=== PATIENT | female | born 1950 | race African-American/Black ===

== ENCOUNTER 2018-09-09 17:05 | Inpatient (IN) | payer OTHER ==
[2018-09-09 17:13] VITALS: BMI 39.1
[2018-09-09 17:47] LABS: BASO % 0.7 % (0-2.0); EOS % 3.1 % (0-4.5); HEMATOCRIT 32.6 % (32.4-45.2); HEMOGLOBIN 11.3 GM/dL (10.7-15.3); LYMPH % 40.3 % (8-40); MCH 32.2 pg (25.7-33.7); MCHC 34.7 g/dl (32.0-36.0); MEAN CELL VOLUME 92.8 fl (80-96); MEAN PLT VOLUME 10.2 fl (7.5-11.1); MONO % 8.4 % (3.8-10.2); NEUT % 47.5 % (42.8-82.8); PLATELET COUNT 224 K/MM3 (134-434); RBC 3.51 M/mm3 (3.60-5.2); RDW 14.4 % (11.6-15.6); WHITE BLOOD COUNT 6.8 K/mm3 (4.0-10.0)
[2018-09-09 18:01] LABS: INR 1.05 (0.83-1.09); PROTHROMBIN TIME (PATIENT) 12.4 SEC (9.7-13.0)
--- NOTE | 2018-09-09 18:08 | PDOC ---
Attending Attestation - Resident Resident Name: Yodit Gonsalez - ED Attending Attestation I have performed the following: I have examined & evaluated the patient, The case was reviewed & discussed with the resident, I agree w/resident's findings & plan, Exceptions are as noted - HPI HPI: 09/09/18 18:12 The patient is a 67 year old female, with a significant PMH of dementia, HTN, HLD, and gout who presents to the emergency department after an episode of slurred speech approximately 60 minutes ago. Daughter is at bedside and providing the history. Patient was sitting down when she suddenly fell backwards slowly on the couch and appeared dazed. Daughter also noticed the left arm stiffening, speech slurring, and b/l face drooping that resolved on its own after 3-5 minutes. Daughter describes slurred speech as the pt speaking in fluent words but like she is "drunk." Denies color change. Denies CP. Pt was in her USOH just prior to episode. No similar episodes in the past. Patients daughter reports she may have had a stroke, unknown how long ago, which was found in a CT scan. Pt noted to have LUE hand tremor at rest that daughter states has been present for months. No hx parkinsons. Patient is asymptomatic in the ER now, denies any symptoms. Daughter states she appears at baseline. The patient denies chest pain, shortness of breath, headache and dizziness. Denies fever, chills, nausea, vomit, diarrhea and constipation. Denies dysuria, frequency, urgency and hematuria. Allergies: NKA Past surgical history: None reported. Social history: No reported alcohol, drug or cigarette use. - Physicial Exam PE: 09/09/18 18:16 agree with residents exam - Medical Decision Making 09/09/18 18:20 67yo F hx CVA, HTN, HL, dementia presents to the ED with transient episode of staring off, slurred speech and b/l facial droop. Pt hypertensive on arrival to 190s systolic. Exam here wnl, NIHSS is 0 at this time. Concern for TIA vs syncope vs seizure. No pain at any point to suggest aortic dissection. Code collier activated for TIA. Plan for CT, labs, UA, CXR, neuro c/s. Anticipate admission.
--- NOTE | 2018-09-09 18:11 | PDOC ---
History of Present Illness - General Chief Complaint: CVA/TIA Stated Complaint: DIZZINESS, SLURRED SPEECH Time Seen by Provider: 09/09/18 17:19 History Source: Patient, Family (daughter) Exam Limitations: No Limitations - History of Present Illness Initial Comments: 09/09/18 18:06 Pt is a 67yo F with PMH of CVA 4 years ago, Dementia, HTN, HLD, Gout presenting to ED with daughter for possible stroke. Per daughter, 30 minutes prior to ED arrival pt was in bed when she became unresponsive, had a blank stare and started to lean backward. Daughter noticed L arm weakness, bilateral facial droop. Pt was like this for about 3-5 minutes. When she became responsive, she was slurring her speech. Per daughter, pt is not having any symptoms. Pt states that she does not remember this episode. Right now she is denying headache, changes in vision, changes in hearing, neck pain, back pain, chest pain, SOB, palpitations, abdominal pain, numbness/tingling, n/v/d, blood in stool, fevers, chills, head injury. Daughter has noticed urinary frequency. Daughter said pt was at [facility] and was told that her mother has "something in the heart valves." Daughter is not sure how long she has been out of ASA. PMD: [place] PMH: see hpi PSH: none Meds: amlodipine, allopurinol, simvastatin, donepazil, see med rec Social: denies Allergies: nkda 09/09/18 18:11 Past History - Past Medical History Allergies/Adverse Reactions: Allergies Allergy/AdvReac Type Severity Reaction Status Date / Time No Known Drug Allergies Allergy Verified 09/09/18 17:08 Shellfish Allergy Uncoded 09/09/18 17:08 Home Medications: Ambulatory Orders Aspirin 81 mg PO DAILY 02/21/13 Atorvastatin Ca [Lipitor (*)] 10 mg PO DAILY 02/21/13 Folic Acid - 1 mg PO DAILY 02/21/13 Multivits-Min/FA/Lycopene/Lut [Centrum Silver Tablet] 1 each PO DAILY 02/21/13 Thiamine HCl [Vitamin B-1] 50 mg PO DAILY 02/21/13 CVA: Yes COPD: No HTN: Yes Seizures: Yes (EPILEPTIC SEIZURES - RECENT 2012; not on meds) - Immunization History Immunization Up to Date: Yes - Suicide/Smoking/Psychosocial Hx Smoking Status: No Smoking History: Current every day smoker Have you smoked in the past 12 months: Yes Number of Cigarettes Smoked Daily: 10 Information on smoking cessation initiated: No 'Breaking Loose' booklet given: 07/03/12 Hx Alcohol Use: No Drug/Substance Use Hx: No Substance Use Type: Alcohol Hx Substance Use Treatment: No Review of Systems - Review of Systems Constitutional: No: Chills, Fever, Weakness HEENTM: No: Eye Pain, Recent change in vision, Double Vision, Hearing Loss Respiratory: No: Cough, Shortness of Breath Cardiac (ROS): No: Chest Pain, Lightheadedness, Palpitations, Syncope ABD/GI: No: Constipated, Diarrhea, Nausea, Rectal Bleeding, Vomiting, Tarry Stools : Yes: Frequency. No: Burning, Dysuria Musculoskeletal: No: Back Pain, Joint Pain, Muscle Weakness, Neck Pain Integumentary: No: Symptoms Reported Neurological: Yes: See HPI. No: Headache, Numbness, Tingling, Tremors, Weakness *Physical Exam - Vital Signs Last Vital Signs Temp Pulse Resp BP Pulse Ox 98.3 F 75 18 198/79 H 96 09/09/18 17:09 09/09/18 17:09 09/09/18 17:09 09/09/18 17:09 09/09/18 17:09 - Physical Exam General Appearance: Yes: Nourished, Appropriately Dressed. No: Apparent Distress HEENT: positive: EOMI, FLOR, Normal ENT Inspection Neck: positive: Trachea midline, Supple. negative: Carotid bruit, Lymphadenopathy (R), Lymphadenopathy (L) Respiratory/Chest: positive: Lungs Clear, Normal Breath Sounds. negative: Crackles, Rales, Rhonchi, Stridor, Wheezing Cardiovascular: positive: Regular Rhythm, Regular Rate, S1, S2, Systolic Murmur. negative: Edema, JVD Vascular Pulses: Carotid (R): 2+, Carotid (L): 2+, Dorsalis-Pedis (R): 2+, Doralis-Pedis (L): 2+ Gastrointestinal/Abdominal: positive: Normal Bowel Sounds, Soft. negative: Distended, Guarding, Rebound, Tenderness, Hernia Musculoskeletal: negative: CVA Tenderness, Vertebral Tenderness Extremity: positive: Normal Capillary Refill, Pelvis Stable. negative: Pedal Edema, Swelling, Calf Tenderness Integumentary: positive: Normal Color, Dry, Warm. negative: Rash, Swelling Neurologic: positive: sheet rock sander II-XII NML intact, Fully Oriented, Alert, Normal Mood/ Affect, Normal Response, Motor Strength 5/5, Responsive, Other (resting tremor in R index finger). negative: Facial Droop, Numbness, Sensory Deficit, Confused , Disoriented Deep Tendon Reflexes: Ankle (L): 2+, Ankle (R): 2+, Knee (L): 2+, Knee (R): 2+, Bicep (L): 2+, Bicep (R): 2+, Tricep (L): 2+, Tricep (R): 2+ NIH Stroke Scale - Initial Evaluation Level of consciousness: Alert Ask patient the month and their age: Answers both correctly Ask patient to open & close eyes; make fist and let go: Obeys both correctly Best gaze (horizontal eye movement): Normal Visual field testing: No visual field loss Facial paresis (Show teeth/raise eyebrows/close eyes tight): Normal symmetrical movement Motor Function: Left Arm: Normal Motor Function: Right Arm: Normal (extends arm 90 (or 45) degrees for 10 seconds without drift Motor Function: Left Leg: Normal (extends leg 30 degrees for 5 seconds without drift) Motor Function: Right Leg: Normal (extends leg 30 degrees for 5 seconds without drift) Limb Ataxia: No ataxia Sensory(Use pinprick test arms,legs,trunk,face/side to side): Normal Best language (Describe picture, name items, read sentences): No Aphasia Dysarthria (read several words): Normal articulation Extinction and Inattention: No abnormality - Total Score NIH Stroke Scale Score: 0 Moderate Sedation - Procedure Monitoring Vital Signs: Procedure Monitoring Vital Signs Temperature 98.3 F 09/09/18 17:09 Pulse Rate 75 09/09/18 17:09 Respiratory Rate 18 09/09/18 17:09 Blood Pressure 198/79 H 09/09/18 17:09 O2 Sat by Pulse Oximetry (%) 96 09/09/18 17:09 Critical Care Time/MDM Note - Medical Decision Making Note: 09/09/18 18:12 Pt is a 67yo F with PMH of CVA 4 years ago, HTN, HLD, Gout presenting to ED with daughter for possible stroke. Per daughter, 30 minutes prior to ED arrival pt was in bed when she became unresponsive, had a blank stare and started to lean backward. Daughter noticed L arm weakness, bilateral facial droop. Pt was like this for about 3-5 minutes. When she became responsive, she was slurring her speech. Per daughter, pt is not having any symptoms. Pt states that she does not remember this episode. Right now she is denying headache, changes in vision, changes in hearing, neck pain, back pain, chest pain, SOB, palpitations , abdominal pain, numbness/tingling, n/v/d, blood in stool, fevers, chills, head injury. Daughter has noticed urinary frequency. Daughter said pt was at [facility] and was told that her mother has "something in the heart valves." Daughter is not sure how long she has been out of ASA. Vitals: Selected Entries 09/09/18 17:09 Temperature 98.3 F Pulse Rate 75 Respiratory 18 Rate Blood Pressure 198/79 H O2 Sat by Pulse 96 Oximetry (%) PE: no neurological deficits. Pt is alert and oriented. She has history of dementia and per daughter does not normally know what day/month it is or what her address is. DDx: CVA/TIA v. syncope v. seizure v. AMS from other source. -CVA workup ordered by Dr. Wilson. I accompanied nurse to CT with patient. Pending results. Initial BP elevated. I repeated BP in room, 178/80s. HR wnl and saturating well on RA. 09/09/18 18:52 CT head negative for acute bleed. Calcifications. Trop 0.06 otherwise wnl. CXR pending, UA pending. Consulted dr. Green, suggested high dose statin and ASA. Will admit to TELE. *DC/Admit/Observation/Transfer Diagnosis at time of Disposition: TIA (transient ischemic attack) - Discharge Dispostion Decision to Admit order: Yes - Referrals Referrals: Manju Dickson MD [Primary Care Provider] - - Patient Instructions - Post Discharge Activity
[2018-09-09 18:18] LABS: ALBUMIN 3.2 g/dl (3.4-5.0); ALK PHOS 86 U/L (45-117); ANION GAP 9 MMOL/L (8-16); BILIRUBIN,TOTAL 0.3 mg/dL (0.2-1); BLOOD UREA NITROGEN 21 mg/dL (7-18); CHLORIDE 112 mmol/L (98-107); CO2 23 mmol/L (21-32); CREATININE 1.2 mg/dL (0.55-1.3); GLUCOSE,RANDOM 91 mg/dL (74-106); POTASSIUM 4.2 mmol/L (3.5-5.1); SGOT/AST 11 U/L (15-37); SGPT/ALT 13 U/L (13-61); SODIUM 145 mmol/L (136-145); TOT PROT 7.6 g/dl (6.4-8.2)
[2018-09-09] MEDS ORDERED: ASPIRIN 325 MG TABLET PO ONE (18:49)
[2018-09-09] MEDS ORDERED: ATORVASTATIN CA 80 MG TABLET (FP) PO ONE (18:51)
--- NOTE | 2018-09-09 19:30 | PN ---
Teaching Attending Note Name of Resident: Richard Patrick ATTENDING PHYSICIAN STATEMENT I saw and evaluated the patient. I reviewed the resident's note and discussed the case with the resident. I agree with the resident's findings and plan as documented. SUBJECTIVE: Patient is a 67 year old woman with a PMH of dementia, HTN, HLD, Tobacco use and gout who presents to the ER after an episode of slurred speech approximately 60 minutes ago. Daughter is at bedside and providing the history. Patient was sitting down when she suddenly fell backwards slowly on the couch and appeared dazed. Daughter also noticed the left arm stiffening, speech slurring, and bilateral face drooping that resolved on its own after 3-5 minutes. Daughter describes slurred speech as the patient speaking in fluent words but like she is "drunk." Denies color change. No similar episodes in the past. Patients daughter reports she may have had a stroke, unknown how long ago , which was found in a CT scan. Patient noted to have LUE hand tremor at rest that daughter states has been present for months. No history of Parkinsons. Patient is asymptomatic in the ER now, denies any symptoms. NIHSS in the Er was 0. Daughter states she appears at baseline. The patient denies chest pain, shortness of breath, headache and dizziness. OBJECTIVE: Alert Vital Signs Period Temp Pulse Resp BP Sys/Christensen Pulse Ox Last 24 Hr 98.3 F 75 18 198/79 96 HEENT: No Jaundice, eye redness or discharge, PERRLA, EOMI. Normocephalic, atraumatic. External ears are normal and hearing is grossly intact. No nasal discharge. Neck: Supple, nontender. No palpable adenopathy or thyromegaly. No JVD Chest: Good effort. Clear to auscultation and percussion. Heart: Regular. No S3, rub or murmur Abdomen: Not distended, soft, nontender and no HSM. No rebound or guarding. Normoactive bowel sounds. Ext: Peripheral pulses intact. No leg edema. Skin: Warm and dry. No petechiae, rash or ecchymosis. Neuro: Alert. Oriented x3. CN 2-12 grossly intact. Sensation grossly intact in all four extremities and DTR are symmetric. Home Medications Medication Instructions Recorded Aspirin 81 mg PO DAILY 02/21/13 Atorvastatin Ca [Lipitor (*)] 10 mg PO DAILY 02/21/13 Folic Acid - 1 mg PO DAILY 02/21/13 Multivits-Min/FA/Lycopene/Lut 1 each PO DAILY 02/21/13 [Centrum Silver Tablet] Thiamine HCl [Vitamin B-1] 50 mg PO DAILY 02/21/13 Abnormal Lab Results 09/09/18 09/09/18 17:09 17:09 RBC 3.51 L Lymphocytes % 40.3 H D Chloride 112 H BUN 21 H AST 11 L Troponin I 0.06 H Albumin 3.2 L ASSESSMENT AND PLAN: 1. TIA - Her head CT scan did not show any acute pathology. Likely had a TIA. Will admit to telemetry, get carotid doppler and ECHO. Patient is symptom free and has no deficits at this time - no indication for MRI. Troponin is slightly elevated and EKG shows T wave inversion in V5-6. Will trend troponin and get repeat EKG to rule out ACS. Optimize statin therapy and get fasting lipids. CXR shows cardiomegaly. Restart home antihypertensive drugs to ultimately attain normotension. Nonpharmacologic measures to control hypertension like weight loss , salt restriction and exercise discussed. 2. Obesity - Will provide patient all the necessary assistance, counseling and positive reinforcement to facilitate weight loss. Consult drafter (cad) electronic. 3. DVT prophylaxis - Lovenox 40 mg SQ q 24 hours. 4. Advance directives - Full code
[2018-09-09] MEDS ORDERED: ASPIRIN 325 MG TABLET ONE (19:34)
[2018-09-09] MEDS ORDERED: ATORVASTATIN CA 80 MG TABLET (FP) ONE (19:36)
--- NOTE | 2018-09-09 20:24 | HP ---
CHIEF COMPLAINT: Per Daughter: AMS, slurred speech, unresponsiveness PCP: Dr Dickson HISTORY OF PRESENT ILLNESS: Pt is a pleasant 67 y/o lady with a significant past medical history of CVA(4 years ago), dementia, epilepsy?, HTN, HLD, Gout, who presented to [facility] due to slurred speech, altered mental status, L arm weakness, and facial droop witnessed by daughter. Per daughter, episode lasted approximately 3-5 minutes and resolved on its own. Per daughter, pt fell backwards slowly on the couch and appeared dazed. Pt does not recall this episode. Daughter endorses that pt has never experienced these symptoms in the past. Daughter states pt has been compliant with blood pressure medication. Pt currently denies chest pain, shortness of breath, confusion, lightheadedness, blurry vision, or headache. NIHSS in the ER was 0. ER course was notable for: (1) CT Head negative (2) BP 198/ 79 (3) EKG in ED--> Sinus rhythm with 1st degree AV block Recent Travel: PAST MEDICAL HISTORY: PAST SURGICAL HISTORY: Hysterectomy Social History: Smoking:Smokes 4-5 Cigarettes per day x 55 years Alcohol: denies Drugs: denies Family History: Allergies No Known Drug Allergies Allergy (Verified 09/09/18 17:08) Shellfish Allergy (Uncoded 09/09/18 17:08) HOME MEDICATIONS: Home Medications Medication Instructions Recorded Aspirin 81 mg PO DAILY 02/21/13 Atorvastatin Ca [Lipitor (*)] 10 mg PO DAILY 02/21/13 Folic Acid - 1 mg PO DAILY 02/21/13 Multivits-Min/FA/Lycopene/Lut 1 each PO DAILY 02/21/13 [Centrum Silver Tablet] Thiamine HCl [Vitamin B-1] 50 mg PO DAILY 02/21/13 REVIEW OF SYSTEMS Symptoms have resolved CONSTITUTIONAL: ABSENT: fever, chills, diaphoresis, generalized weakness, malaise, loss of appetite, weight change HEENT: Absent: rhinorrhea, nasal congestion, throat pain, throat swelling, difficulty swallowing, mouth swelling, ear pain, eye pain, visual changes CARDIOVASCULAR: Absent: chest pain, syncope, palpitations, irregular heart rate, lightheadedness , peripheral edema RESPIRATORY: Absent: cough, shortness of breath, dyspnea with exertion, orthopnea, wheezing, stridor, hemoptysis GASTROINTESTINAL: Absent: abdominal pain, abdominal distension, nausea, vomiting, diarrhea, constipation, melena, hematochezia GENITOURINARY: Absent: dysuria, frequency, urgency, hesitancy, hematuria, flank pain, genital pain MUSCULOSKELETAL: Absent: myalgia, arthralgia, joint swelling, back pain, neck pain SKIN: Absent: rash, itching, pallor HEMATOLOGIC/IMMUNOLOGIC: Absent: easy bleeding, easy bruising, lymphadenopathy, frequent infections ENDOCRINE: Absent: unexplained weight gain, unexplained weight loss, heat intolerance, cold intolerance NEUROLOGIC: Absent: headache, focal weakness or paresthesias, dizziness, unsteady gait, seizure, mental status changes, bladder or bowel incontinence PSYCHIATRIC: Absent: anxiety, depression, suicidal or homicidal ideation, hallucinations. PHYSICAL EXAMINATION Vital Signs - 24 hr 09/09/18 09/09/18 17:09 17:34 Temperature 98.3 F Pulse Rate 75 62 Respiratory 18 Rate Blood Pressure 198/79 H O2 Sat by Pulse 96 98 Oximetry (%) GENERAL: AAOx2. Cannot recall date HEAD: NC/AT EYES: EOMI Conjunctiva clear EARS, NOSE, THROAT: Poor dentition, MMM NECK: Supple, No JVD, Neck Supple LUNGS: Crackles R base HEART: RRR No MRG appreciated ABDOMEN: Obese, NDNT MUSCULOSKELETAL: FROM throughout UPPER EXTREMITIES: No CCE LOWER EXTREMITIES:No pedel edema appreciated NEUROLOGICAL: No neuro def appreciated SKIN: No rashes or lesions appreciated Laboratory Results - last 24 hr 09/09/1818 18 17:09 17:09 17:09 WBC 6.8 RBC 3.51 L Hgb 11.3 Hct 32.6 MCV 92.8 MCH 32.2 MCHC 34.7 RDW 14.4 Plt Count 224 MPV 10.2 Absolute Neuts (auto) 3.2 Neutrophils % 47.5 D Lymphocytes % 40.3 H D Monocytes % 8.4 D Eosinophils % 3.1 Basophils % 0.7 Nucleated RBC % 0 PT with INR 12.40 INR 1.05 PTT (Actin FS) Sodium 145 Potassium 4.2 Chloride 112 H Carbon Dioxide 23 Anion Gap 9 BUN 21 H Creatinine 1.2 Creat Clearance w eGFR 44.54 Random Glucose 91 Calcium 9.0 Total Bilirubin 0.3 AST 11 L ALT 13 Alkaline Phosphatase 86 Creatine Kinase 96 Troponin I 0.06 H Total Protein 7.6 Albumin 3.2 L Blood Type Antibody Screen 09/09/18 09/09/18 17:09 17:35 WBC RBC Hgb Hct MCV MCH MCHC RDW Plt Count MPV Absolute Neuts (auto) Neutrophils % Lymphocytes % Monocytes % Eosinophils % Basophils % Nucleated RBC % PT with INR INR PTT (Actin FS) 26.9 Sodium Potassium Chloride Carbon Dioxide Anion Gap BUN Creatinine Creat Clearance w eGFR Random Glucose Calcium Total Bilirubin AST ALT Alkaline Phosphatase Creatine Kinase Troponin I Total Protein Albumin Blood Type A POSITIVE Antibody Screen Negative ASSESSMENT/PLAN: Pt is a pleasant 67 y/o lady with a significant past medical history of CVA(4 years ago), dementia, epilepsy?, HTN, HLD, Gout, who presented to [facility] due to slurred speech, altered mental status, L arm weakness, and facial droop witnessed by daughter. #Transient Ischemic Attack -Clinical history with resolving symptoms - BP 198/ 79 in ED - H/O HTN - Lisinopril 10 MG PO BID Amlodipine 5 MG PO Dailky -HCTZ 12.5 Daily -Echocardiogram -Lipid Panel -Carotid Doppler -Received High dose statin in ED Atorvastin 80 MG, Aspirin 325 mg -Resume home Atorvastatin 40 mg - Aspirin 81 Mg daily -Neurology on board # HLD Resume home Atorvastatin Cousel on weight loss and lifestyle modifications # Gout -Allopurinol # Dementia Donepezil #FEN No Fluids Monitor electrolytes Sodium Controlled Diet DVT ppx: Lovenox 40 SQ Daily Dispo: Tele Visit type - Emergency Visit Emergency Visit: Yes Care time: The patient presented to the Emergency Department on the above date and was hospitalized for further evaluation of their emergent condition. - New Patient This patient is new to me today: Yes Date on this admission: 09/09/18 - Critical Care Critical Care patient: No
[2018-09-09] MEDS ORDERED: LISINOPRIL 5 MG TABLET (FP) ONE (22:36)
[2018-09-09] MEDS: LISINOPRIL 10 MG TABLET (FP) PO SCH ×2 (22:41→22:49)
[2018-09-10 05:54] LABS: BASO % 0.7 % (0-2.0); EOS % 3.3 % (0-4.5); HEMATOCRIT 31.5 % (32.4-45.2); HEMOGLOBIN 10.3 GM/dL (10.7-15.3); LYMPH % 42.5 % (8-40); MCH 30.7 pg (25.7-33.7); MCHC 32.6 g/dl (32.0-36.0); MEAN CELL VOLUME 94.2 fl (80-96); MEAN PLT VOLUME 10.1 fl (7.5-11.1); MONO % 8.2 % (3.8-10.2); NEUT % 45.3 % (42.8-82.8); PLATELET COUNT 216 K/MM3 (134-434); RBC 3.34 M/mm3 (3.60-5.2); RDW 14.6 % (11.6-15.6); WHITE BLOOD COUNT 6.2 K/mm3 (4.0-10.0)
[2018-09-10 06:46] LABS: ANION GAP 8 MMOL/L (8-16); BLOOD UREA NITROGEN 27 mg/dL (7-18); CALCIUM 8.8 mg/dL (8.5-10.1); CHLORIDE 112 mmol/L (98-107); CHOLESTEROL 154 mg/dL (50-200); CO2 25 mmol/L (21-32); CREATININE 1.3 mg/dL (0.55-1.3); GLUCOSE,RANDOM 97 mg/dL (74-106); HDL CHOLESTEROL 40 mg/dL (40-60); MAGNESIUM 2.1 mg/dL (1.8-2.4); PHOSPHOROUS 3.6 mg/dL (2.5-4.9); POTASSIUM 4.2 mmol/L (3.5-5.1); SODIUM 145 mmol/L (136-145); TRIGLYCERIDES 128 mg/dL (0-150)
--- NOTE | 2018-09-10 07:44 | PN ---
Progress Note, Physician History of Present Illness: 67 y/o lady with a significant past medical history of CVA(4 years ago), dementia, epilepsy?, HTN, HLD, Gout, who presented to [facility] due to slurred speech, altered mental status, L arm weakness, and facial droop witnessed by daughter. Per daughter, episode lasted approximately 3-5 minutes and resolved on its own. Per daughter, pt fell backwards slowly on the couch and appeared dazed. CT head no interval changes - Current Medication List Current Medications: Active Medications Allopurinol (Zyloprim -) 100 mg PO DAILY [facility] Amlodipine Besylate (Norvasc -) 5 mg PO DAILY [facility] Aspirin (Asa -) 81 mg PO DAILY [facility] Atorvastatin Calcium (Lipitor -) 40 mg PO HS ARA Donepezil HCl (Aricept -) 10 mg PO HS ARA Enoxaparin Sodium (Lovenox -) 40 mg SQ DAILY [facility] Hydrochlorothiazide (Hctz -) 12.5 mg PO DAILY [facility] Lisinopril (Prinivil) 10 mg PO BID [facility] Last Admin: 09/09/18 22:49 Dose: Not Given Metoprolol Succinate (Toprol Xl -) 25 mg PO DAILY [facility] - Objective Vital Signs: Vital Signs Temperature 98 F 09/10/18 06:55 Pulse Rate 66 09/10/18 06:55 Respiratory Rate 19 09/10/18 06:55 Blood Pressure 135/59 L 09/10/18 06:55 O2 Sat by Pulse Oximetry (%) 98 09/10/18 06:55 Labs: CBC, BMP 09/10/18 05:15 09/10/18 05:15 INR, PTT INR 1.05 (0.83-1.09) 09/09/18 17:09 Problem List - Problems (1) Altered mental state Assessment/Plan: Considering previous history and risk possibility of TIA already on ASA, Statin will observe on Tele F/U Carotid Doppler, Neuro check, PT evaluation, Neurology consult, ECHO. Code(s): R41.82 - ALTERED MENTAL STATUS, UNSPECIFIED (2) HTN (hypertension) Assessment/Plan: Resumed Home meds at target Code(s): I10 - ESSENTIAL (PRIMARY) HYPERTENSION (3) Hypercholesteremia Assessment/Plan: Cont Statin Code(s): E78.00 - PURE HYPERCHOLESTEROLEMIA, UNSPECIFIED (4) Dementia Assessment/Plan: Resumed home meds Code(s): F03.90 - UNSPECIFIED DEMENTIA WITHOUT BEHAVIORAL DISTURBANCE
--- NOTE | 2018-09-10 09:20 | EKG ---
Test Reason : Blood Pressure : / mmHG Vent. Rate : 062 BPM Atrial Rate : 062 BPM P-R Int : 216 ms QRS Dur : 108 ms QT Int : 436 ms P-R-T Axes : 055 059 080 degrees QTc Int : 442 ms SINUS RHYTHM WITH 1ST DEGREE A-V BLOCK CANNOT RULE OUT INFERIOR INFARCT , AGE UNDETERMINED CANNOT RULE OUT ANTERIOR INFARCT , AGE UNDETERMINED ABNORMAL ECG WHEN COMPARED WITH ECG OF 27-FEB-2013 13:39, SIGNIFICANT CHANGES HAVE OCCURRED Confirmed by TRINH SINGLETARY, REX ([id number]) on 09/10/2018 9:20:41 AM Referred By: Confirmed By:REX TSANG MD
--- NOTE | 2018-09-10 09:21 | EKG ---
Test Reason : Blood Pressure : / mmHG Vent. Rate : 064 BPM Atrial Rate : 064 BPM P-R Int : 210 ms QRS Dur : 110 ms QT Int : 438 ms P-R-T Axes : 050 058 069 degrees QTc Int : 451 ms SINUS RHYTHM WITH 1ST DEGREE A-V BLOCK POSSIBLE LEFT ATRIAL ENLARGEMENT POSSIBLE INFERIOR INFARCT (CITED ON OR BEFORE 09-SEP-2018) CANNOT RULE OUT ANTERIOR INFARCT (CITED ON OR BEFORE 09-SEP-2018) ABNORMAL ECG WHEN COMPARED WITH ECG OF 09-SEP-2018 19:06, NO SIGNIFICANT CHANGE WAS FOUND Confirmed by REX TSANG MD ([id number]) on 09/10/2018 9:21:19 AM Referred By: Confirmed By:REX TSANG MD
[2018-09-10] MEDS: HYDROCHLOROTHIAZIDE 12.5 MG CAPSULE (FP) PO SCH (10:56)
[2018-09-10] MEDS: ENOXAPARIN NA (PORCINE) 40 MG/0.4 ML DISP.SYRIN SQ SCH (10:56)
[2018-09-10] MEDS: ASPIRIN 81 MG CHEWABLE TABLETS PO SCH (10:56)
[2018-09-10] MEDS: ALLOPURINOL 100 MG TABLET (FP) PO SCH (10:57)
[2018-09-10] MEDS: metoPROLOL SUCCINATE 25 MG TAB.SR.24H (FP) PO SCH (10:57)
[2018-09-10] MEDS: amLODIPine BESYLATE 5 MG TABLET (FP) PO SCH (10:57)
[2018-09-10] MEDS: LISINOPRIL 10 MG TABLET (FP) PO SCH ×2 (10:57→23:03)
--- NOTE | 2018-09-10 11:15 | CON.NEURO ---
Consult - Alcohol/Substance Use Hx Alcohol Use: No - Smoking History Smoking history: Current every day smoker Have you smoked in the past 12 months: Yes Aproximately how many cigarettes per day: 10 Home Medications - Allergies Allergies/Adverse Reactions: Allergies Allergy/AdvReac Type Severity Reaction Status Date / Time No Known Drug Allergies Allergy Verified 09/09/18 17:08 Shellfish Allergy Uncoded 09/09/18 17:08 - Home Medications Home Medications: Ambulatory Orders Aspirin 81 mg PO DAILY 02/21/13 Atorvastatin Ca [Lipitor (*)] 10 mg PO DAILY 02/21/13 Folic Acid - 1 mg PO DAILY 02/21/13 Multivits-Min/FA/Lycopene/Lut [Centrum Silver Tablet] 1 each PO DAILY 02/21/13 Thiamine HCl [Vitamin B-1] 50 mg PO DAILY 02/21/13 Physical Exam-Neuro Vital Signs: Vital Signs Temperature 98 F 09/10/18 06:55 Pulse Rate 66 09/10/18 06:55 Respiratory Rate 19 09/10/18 06:55 Blood Pressure 135/59 L 09/10/18 06:55 O2 Sat by Pulse Oximetry (%) 98 09/10/18 06:55 Labs: CBC, BMP 09/10/18 05:15 09/10/18 05:15 INR, PTT INR 1.05 (0.83-1.09) 09/09/18 17:09 Assessment/Plan CC Slurring of speech and Left sided weakness and resolvd in five minutes HPI 67 year old female history of Dementia, htn,hld, gout .She has history of stroke, recovered completely.Patient has slurring of speech and left arm weakness and face droop, and patient recovered completely in 5 minute. Patient is not taking aspirin but she take statin at home . Patient do smoke and was diagnoed with dementia in past. Her ct head was normal, her nih score was 0 at admission. PMH as above. PAST SURGICAL HISTORY: Hysterectomy Social History: Smoking:Smokes 4-5 Cigarettes per day x 55 years Alcohol: denies Drugs: denies Family History: Allergies No Known Drug Allergies Allergy (Verified 09/09/18 17:08) Shellfish Allergy (Uncoded 09/09/18 17:08) HOME MEDICATIONS: Home Medications Medication Instructions Recorded Aspirin 81 mg PO DAILY 02/21/13 Atorvastatin Ca [Lipitor (*)] 10 mg PO DAILY 02/21/13 Folic Acid - 1 mg PO DAILY 02/21/13 Multivits-Min/FA/Lycopene/Lut 1 each PO DAILY 02/21/13 [Centrum Silver Tablet] Thiamine HCl [Vitamin B-1] 50 mg PO DAILY 02/21/13 ROS FH reviewd in chart NEUROLOGICAL EXAMINATION Alert oriented x 2, she could not tell what date is today, she know month of september and it is [facility] eomi, pupils reactive, no face asymmetry Motor 5/5 all intact, sensation is normal ct head unremarkable Assessment TIA risk factor DM, HTN, SMOKER and previous stroke Plan: as per daughter she was taking aspirin, resume aspirin - high dose statin - carotid ultrasound and mri of brain - dvt prophylaxis, smoking cessation and stroke education Thanking you so much Nik Green MD
[2018-09-10] MEDS ORDERED: ATORVASTATIN CA 40 MG TABLET (FP) PO SCH (22:00)
[2018-09-10] MEDS ORDERED: DONEPEZIL HCL 10 MG TABLET (FP) PO SCH (22:00)
[2018-09-11 06:50] LABS: BASO % 1.2 % (0-2.0); EOS % 3.9 % (0-4.5); HEMATOCRIT 33.9 % (32.4-45.2); HEMOGLOBIN 10.9 GM/dL (10.7-15.3); LYMPH % 40.2 % (8-40); MCH 30.5 pg (25.7-33.7); MCHC 32.1 g/dl (32.0-36.0); MEAN PLT VOLUME 10.4 fl (7.5-11.1); MONO % 6.5 % (3.8-10.2); NEUT % 48.2 % (42.8-82.8); PLATELET COUNT 228 K/MM3 (134-434); RBC 3.57 M/mm3 (3.60-5.2); RDW 14.6 % (11.6-15.6); WHITE BLOOD COUNT 6.8 K/mm3 (4.0-10.0)
[2018-09-11 07:44] LABS: ANION GAP 7 MMOL/L (8-16); BLOOD UREA NITROGEN 24 mg/dL (7-18); CALCIUM 8.8 mg/dL (8.5-10.1); CHLORIDE 110 mmol/L (98-107); CO2 24 mmol/L (21-32); CREATININE 1.2 mg/dL (0.55-1.3); GLUCOSE,RANDOM 92 mg/dL (74-106); POTASSIUM 4.5 mmol/L (3.5-5.1); SODIUM 141 mmol/L (136-145); URIC ACID 4.8 mg/dL (2.6-7.2)
--- NOTE | 2018-09-11 09:17 | PN ---
Progress Note (short form) - Note Progress Note: CC Slurring of speech and Left sided weakness and resolvd in five minutes HPI 67 year old female history of Dementia, htn,hld, gout .She has history of stroke, recovered completely.Patient has slurring of speech and left arm weakness and face droop, and patient recovered completely in 5 minute. Patient is not taking aspirin but she take statin at home . Patient do smoke and was diagnoed with dementia in past. Her ct head was normal, her nih score was 0 at admission. her mri of brain is normal and carotid ultrasound o stenosis NEUROLOGICAL EXAMINATION Alert oriented x 2, she could not tell what date is today, she know month of september and it is [facility] eomi, pupils reactive, no face asymmetry Motor 5/5 all intact, sensation is normal ct head unremarkable mri of brain no acute findings and carotid u ltrasound is normal Assessment TIA risk factor DM, HTN, SMOKER and previous stroke Plan: continue appirin and statin smoking cessation and stroke education follow up outpatient Thanking you so much Nik Green MD
[2018-09-11] MEDS ORDERED: FOLIC ACID 1 MG TABLET (FP) PO SCH (10:00)
[2018-09-11] MEDS ORDERED: THIAMINE HCL 100 MG TABLET (FP) PO SCH (10:00)
[2018-09-11] MEDS ORDERED: MULTIVITAMINS THER W-MINERALS COMBO TABLET (FP) PO SCH (10:00)
[2018-09-11] MEDS: HYDROCHLOROTHIAZIDE 12.5 MG CAPSULE (FP) PO SCH (10:15)
[2018-09-11] MEDS: LISINOPRIL 10 MG TABLET (FP) PO SCH (10:15)
[2018-09-11] MEDS: ASPIRIN 81 MG CHEWABLE TABLETS PO SCH (10:15)
[2018-09-11] MEDS: metoPROLOL SUCCINATE 25 MG TAB.SR.24H (FP) PO SCH (10:16)
[2018-09-11] MEDS: ALLOPURINOL 100 MG TABLET (FP) PO SCH (10:16)
[2018-09-11] MEDS: amLODIPine BESYLATE 5 MG TABLET (FP) PO SCH (10:16)
[2018-09-11] MEDS: ENOXAPARIN NA (PORCINE) 40 MG/0.4 ML DISP.SYRIN SQ SCH (10:20)
[2018-09-11 11:04] LABS: ANISOCYTOSIS 1+; MACROCYTOSIS 0; PLATELET ESTIMATE NORMAL
--- NOTE | 2018-09-11 11:39 | ECHO ---
Name: JUANJO DUBOIS Exam:Adult Echocardiogram Study Date: 09/11/2018 09:02 AM Age: 67 yrs Reason For Study: confusion, ams Height: 67 in Weight: 250 lb BSA: 2.2 m2 MMode/2D Measurements & Calculations IVSd: 1.5 cm Ao root diam: 2.6 cm LVIDd: 4.7 cm LA dimension: 4.1 cm LVIDs: 2.8 cm LVPWd: 1.0 cm LVPWs: 1.8 cm EDV(Calebich): 103.5 ml ESV(Teich): 30.1 ml LAV (MOD-bp): 70.0 ml Doppler Measurements & Calculations MV E max wyatt: 119.4 cm/sec Ao V2 max: 229.0 cm/sec MV A max wyatt: 94.3 cm/sec Ao max P.0 mmHg MV E/A: 1.3 AI P1/2t: 383.4 msec MV dec time: 0.25 sec AI max wyatt: 490.0 cm/sec LV V1 max P.8 mmHg AI max P.5 mmHg LV V1 max: 120.4 cm/sec AI dec slope: 374.3 cm/sec2 MR max wyatt: 569.6 cm/sec PA V2 max: 119.4 cm/sec MR max P.1 mmHg PA max P.7 mmHg Med Peak E' Wyatt: 6.0 cm/sec Med E/e': 19.8 Lat Peak E' Wyatt: 5.5 cm/sec Lat E/e': 21.8 Procedure A complete two-dimensional transthoracic echocardiogram was performed (2D, M-mode, Doppler and color flow Doppler). Left Ventricle The left ventricle is normal in size. Left ventricular systolic function is normal. Ejection Fraction = 65- 70%. E/A reveals pseudonormalization mitral inflow with TDI revealing grade II diastolic dysfunction with elevated filling pressure (E/E' 19). No regional wall motion abnormalities noted. Right Ventricle The right ventricle is normal size. The right ventricular systolic function is normal. RV systolic TD I is 13 cm/s. Atria The left atrial size is normal. Right atrial size is normal. Mitral Valve The mitral valve is normal in structure and function. There is moderate mitral regurgitation. Tricuspid Valve The tricuspid valve is normal in structure and function. No tricuspid regurgitation. Aortic Valve The aortic valve is normal in structure and function. Mild aortic regurgitation. Pulmonic Valve The pulmonic valve is not well visualized. Mild pulmonic valvular regurgitation. Great Vessels The aortic root is normal size. Pericardium/Pleura There is no pericardial effusion. Interpretation Summary The left ventricle is normal in size. Left ventricular systolic function is normal. No regional wall motion abnormalities noted. Ejection Fraction = 65-70%. E/A reveals pseudonormalization mitral inflow with TDI revealing grade II diastolic dysfunction with elevated filling pressure (E/E' 19) The right ventricular systolic function is normal. The left atrial size is normal. Right atrial size is normal. There is moderate mitral regurgitation. Mild aortic regurgitation. Mild pulmonic valvular regurgitation. There is no pericardial effusion. Previous study is not available for comparison Harvinder Staples MD 09/11/2018 11:38 AM
--- NOTE | 2018-09-11 14:25 | DS ---
Physical Examination Vital Signs: Vital Signs Temperature 98 F 09/11/18 09:00 Pulse Rate 67 09/11/18 09:00 Respiratory Rate 18 09/11/18 09:00 Blood Pressure 151/78 09/11/18 09:00 O2 Sat by Pulse Oximetry (%) 96 09/11/18 09:00 Constitutional: Yes: Well Nourished, No Distress, Calm Cardiovascular: Yes: WNL, Regular Rate and Rhythm. No: Murmur Respiratory: Yes: WNL, Regular, CTA Bilaterally. No: SOB, Tachypnea, Wheezes Gastrointestinal: Yes: WNL, Normal Bowel Sounds, Soft. No: Distention, Tenderness Renal/: Yes: WNL Extremities: Yes: WNL Edema: No Neurological: Yes: Alert, Confusion Psychiatric: Yes: Alert Labs: CBC, BMP 09/11/18 05:30 09/11/18 05:30 Discharge Summary Reason For Visit: TRANSIENT ISCHEMIC ATTACK Current Active Problems Altered mental state (Acute) Dementia (Acute) HTN (hypertension) (Acute) Hypercholesteremia (Acute) TIA (transient ischemic attack) (Acute) Hospital Course: 67 year old female admitted for TIA. Pt came in with 5 minute duration of slurred speech, left arm weakness and facial droop which resolved. Consistent with a TIA. Head CT negative, all cardiac/neuro work up negative. Pt evaluated by Cardiology. Advise high dose statin and asa. Pt ambulated with PT. Tolerating diet. vitals/labs stable. Pt is medically stable for discharge home. Advise outpt follow up. 32 minutes spent in discharge planning Condition: Good - Instructions Diet, Activity, Other Instructions: meds as directed follow up Referrals: Nik Green MD [Staff Physician] - 2 Weeks Manju Dickson MD [Primary Care Provider] - 1 Week Disposition: HOME - Home Medications Comprehensive Discharge Medication List: Ambulatory Orders Aspirin 81 mg PO DAILY 02/21/13 Folic Acid - 1 mg PO DAILY 02/21/13 Multivits-Min/FA/Lycopene/Lut [Centrum Silver Tablet] 1 each PO DAILY 02/21/13 Thiamine HCl [Vitamin B-1] 50 mg PO DAILY 02/21/13 Allopurinol [Zyloprim -] 100 mg PO DAILY 09/10/18 Amlodipine Besylate [Norvasc -] 5 mg PO DAILY 09/10/18 Donepezil HCl 10 mg PO HS 09/10/18 Metoprolol Tartrate 25 mg PO DAILY 09/10/18 Atorvastatin Ca [Lipitor] 80 mg PO HS #30 tablet 09/11/18
[2018-09-11 14:52] VITALS: BP 143/53; PULSE 71; TEMP 97.9
== END 2018-09-11 20:21 | disposition home or self-care (01) | DRG 69 ==
LOC: JER 17:05 → JERBED 18:15 → OBSVTOIN 20:15 → J4W 09-10 17:27
PROVIDERS: ADMIT Internal Medicine; ATTEND Internal Medicine
DX: G45.9 Transient cerebral ischemic attack, unspecified (principal); I10 Essential (primary) hypertension; F03.90 Unspecified dementia, unspecified severity, without behavioral disturbance, psychotic disturbance, mood disturbance, and anxiety; E78.5 Hyperlipidemia, unspecified; M10.9 Gout, unspecified; G40.909 Epilepsy, unspecified, not intractable, without status epilepticus; F17.210 Nicotine dependence, cigarettes, uncomplicated; Z90.710 Acquired absence of both cervix and uterus
CPT/HCPCS: 36415; 70450-TC; 70551-TC; 71045-TC-FY; 80048; 80053; 80061; 82550; 83721; 83735; 84100; 84484; 84550; 85025; 85610; 85730; 86850; 86900; 86901; 93005; 93010; 93306-TC; 93880-TC; 97116-GP; 97161-GP; 99285-25; G0378

== ENCOUNTER 2019-07-17 00:12 | Inpatient (IN) | payer OTHER ==
[2019-07-17] MEDS ORDERED: DEXAMETHASONE SOD PHOSPHATE 10 MG/1 ML VIAL ONE (00:50)
[2019-07-17] MEDS ORDERED: ALBUTEROL SO4 2.5/IPRATROPIUM 0.5 INH SOL 3 ML VIAL.NEB. NEB ONE ×3 (00:50→00:53)
--- NOTE | 2019-07-17 00:53 | PDOC ---
History of Present Illness - General Chief Complaint: Respiratory Distress Stated Complaint: DIFFICULTY BREATHING Time Seen by Provider: 07/17/19 00:26 History Source: Patient, Family Exam Limitations: No Limitations - History of Present Illness Initial Comments: 07/17/19 00:53 Renea Darden is a 68F with PMH CVA, asthma/COPD (albuterol+steroids, no home O2), CHF, HTN, HLD presenting from home with acute onset shortness of breath and abdominal pain. History obtained from patient and family member at bedside. 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 Denies chest pain, dizziness, urinary sx, fever, N/V, C/D. Family tried giving albuterol inhaler without improvement, called EMS and brought her to ED. Per EMS, was wheezing with decreased breath sounds bilaterally, no rales, gave 1 amp Combivent and 10mg Decadron and wheezing resolved to rhonchorus breath sounds bilaterally, was placed on CPAP for hypoxia. Per family at bedside, usually seen at [facility], last time admitted for a COPD exacerbation. Takes all medications appropriately at home for COPD and CHF, no recent medication changes. Not on home oxygen. No prodromal symptoms including precursor fever or URI symptoms. Has a known lower back pain problem. Past History - Past Medical History Allergies/Adverse Reactions: Allergies Allergy/AdvReac Type Severity Reaction Status Date / Time No Known Drug Allergies Allergy Verified 09/09/18 17:08 Shellfish Allergy Uncoded 09/09/18 17:08 Home Medications: Ambulatory Orders Aspirin 81 mg PO DAILY 02/21/13 Allopurinol [Zyloprim -] 100 mg PO DAILY 09/10/18 Amlodipine Besylate [Norvasc -] 5 mg PO DAILY 09/10/18 Donepezil HCl 10 mg PO HS 09/10/18 Atorvastatin Ca [Lipitor] 80 mg PO HS #30 tablet 09/11/18 Apixaban [Eliquis] 5 mg PO BID 07/17/19 Calcium Carbonate [Calcium] 600 mg PO DAILY 07/17/19 Carvedilol [Coreg -] 3.125 mg PO BID 07/17/19 Ergocalciferol (Vitamin D2) [Vitamin D2] 25 mcg PO DAILY 07/17/19 Fluticasone Propion/Salmeterol [Wixela 500-50 Inhub] 1 each IH BID 07/17/19 Hydralazine HCl 50 mg PO TID 07/17/19 Pantoprazole Sodium 40 mg PO DAILY 07/17/19 Potassium 10 meq PO BID 07/17/19 Torsemide 20 mg PO BID 07/17/19 CVA: Yes COPD: No Dementia: Yes HTN: Yes Hypercholesterolemia: Yes Seizures: Yes (EPILEPTIC SEIZURES - RECENT 2012; not on meds) - Immunization History Immunization Up to Date: Yes - Psycho Social/Smoking Cessation Hx Smoking Status: No Smoking History: Former smoker Have you smoked in the past 12 months: No Number of Cigarettes Smoked Daily: 10 If you are a former smoker, when did you quit?: 2018 Information on smoking cessation initiated: No 'Breaking Loose' booklet given: 09/10/18 Hx Alcohol Use: No Drug/Substance Use Hx: No Substance Use Type: Alcohol Hx Substance Use Treatment: No Review of Systems - Review of Systems Able to Perform ROS?: Yes Constitutional: No: Chills, Fever HEENTM: No: Blurred Vision, Nose Congestion, Hearing Loss, Throat Pain, Dental Problems, Difficulty Swallowing Respiratory: Yes: Cough, SOB at Rest, Wheezing. No: Productive cough, Hemoptysis Cardiac (ROS): No: Chest Pain, Lightheadedness, Palpitations ABD/GI: Yes: Other (RUQ abdominal pain). No: Constipated, Diarrhea, Nausea, Vomiting : No: Symptoms Reported Musculoskeletal: Yes: Back Pain Integumentary: No: Symptoms Reported Neurological: No: Symptoms reported Endocrine: No: Symptoms Reported Hematologic/Lymphatic: No: Symptoms Reported All Other Systems: Reviewed and Negative *Physical Exam - Vital Signs Last Vital Signs Temp Pulse Resp BP Pulse Ox 98 F 95 H 20 154/78 96 07/17/19 00:42 07/17/19 00:42 07/17/19 00:42 07/17/19 00:42 07/17/19 00:43 - Physical Exam General Appearance: Yes: Nourished, Appropriately Dressed, Moderate Distress HEENT: positive: EOMI, FLOR, Normal Voice, Hearing Grossly Normal. negative: Scleral Icterus (R), Scleral Icterus (L), Sinus Tenderness Neck: positive: Supple. negative: Tender, Lymphadenopathy (R), Lymphadenopathy (L) Respiratory/Chest: positive: Rhonchi, Other (on BiPap, rhonchorus breath sounds bilaterally to all zavaleta, no wheezing noted, no rales noted, satting 96% on 40 % FiO2). negative: Rales, Wheezing Cardiovascular: positive: Regular Rhythm, Regular Rate. negative: Murmur Gastrointestinal/Abdominal: positive: Normal Bowel Sounds, Tender (pain to RUQ, +Fowler sign), Soft, Protuberent. negative: Organomegaly, Pulsatile Mass Musculoskeletal: positive: Normal Inspection. negative: CVA Tenderness Extremity: positive: Normal Capillary Refill, Normal Range of Motion, Pedal Edema (bilateral 3+ pitting edema to both legs from feet to knees, no evidence of erythema or calor, non-tender, moves spontaneously ). negative: Tender Integumentary: positive: Normal Color, Dry, Warm. negative: Clammy, Diaphoresis Neurologic: positive: Alert, Normal Mood/Affect, Normal Response ED Treatment Course - LABORATORY CBC & Chemistry Diagram: 07/17/19 00:40 07/17/19 00:40 Medical Decision Making - Medical Decision Making 07/17/19 00:53 Renea Darden is a 68F with PMH CVA, asthma/COPD (albuterol+steroids, no home O2), CHF, HTN, HLD presenting from home with acute onset shortness of breath and abdominal pain. Patient presentation concerning for COPD exacerbation vs. CHF exacerbation given history and new onset SOB with history of admission for COPD exacerbation and PE exam findings of pitting edema. DDx includes PNA vs. PE. Abd pain concerning for AAA vs. liver/gallbladder pathology. Evaluating via sepsis order set and a BNP, including: CXR ECG CBC lactate VBG CMP CP UA/UC On BiPap and satting well, giving 3x Duonebs for resumed COPD exacerbation, Decadron already given by EMS. 07/17/19 02:04 Patient presentation of abdominal pain concerning for AAA vs. PE as well, getting CTA CAP for evaluation of PE and AAA. Labs show Cr 1.5, up 0.3 from baseline, eGFR 40. Hgb 7.7 down from 10 last time, no documented history of CAD, unclear source. Lytes WNL VBG consistent with respiratory acidosis. BNP ~2000. ECG is poor quality with significant artifact, shows sinus tachycardia, HR 112, QTc 535 07/17/19 04:45 CTA CAP Read: No aortic aneurysm or dissection. No bowel obstruction or inflammation in visualized abdomen and pelvis; lower pelvis incompletely seen. No free fluid or free air. Normal portion of appendix seen. Unremarkable pancreas and kidneys. Cholelithiasis. Small hiatal hernia. Please see chest CT report for additional findings. No evidence of acute bleeding on CTA CAP that can explain Hgb 7.7. Patient needs admission for COPD exacerbation and hypoxic respiratory failure with increased oxygen requirement on BiPap, respiratory acidosis with a pH 7.30 , and concommitant medical issues including CHF with 3+ bilateral pitting edema. 07/17/19 05:28 Signed out to mandy Bergeron for admission under Dr. Soto to tele. Ordered stool occult blood for evaluation of LGIB given Hgb drop. Discharge - Discharge Information Problems reviewed: Yes Clinical Impression/Diagnosis: COPD with exacerbation Respiratory failure with hypoxia Qualifiers: Chronicity: acute Qualified Code(s): J96.01 - Acute respiratory failure with hypoxia Condition: Stable - Admission Yes - Follow up/Referral Referrals: Manju Dickson MD [Primary Care Provider] - - Patient Discharge Instructions - Post Discharge Activity
[2019-07-17 01:09] LABS: BASO % 0.8 % (0-2.0); EOS % 3.3 % (0-4.5); HEMOGLOBIN 7.7 GM/dL (10.7-15.3); MCH 23.9 pg (25.7-33.7); MCHC 30.8 g/dl (32.0-36.0); MEAN CELL VOLUME 77.4 fl (80-96); MEAN PLT VOLUME 8.8 fl (7.5-11.1); MONO % 5.5 % (3.8-10.2); NEUT % 65.4 % (42.8-82.8); PLATELET COUNT 388 K/MM3 (134-434); RBC 3.23 M/mm3 (3.60-5.2); RDW 21.1 % (11.6-15.6); WHITE BLOOD COUNT 8.2 K/mm3 (4.0-10.0)
[2019-07-17 01:10] LABS: VENOUS PC02 54.7 mmHg (38-52)
[2019-07-17 01:11] LABS: VENOUS PO2 < 49 mmHg (28-48)
[2019-07-17 01:19] LABS: INR 1.02 (0.83-1.09)
--- NOTE | 2019-07-17 01:21 | PDOC ---
Attending Attestation - Resident Resident Name: Elias Pope - ED Attending Attestation I have performed the following: I have examined & evaluated the patient, The case was reviewed & discussed with the resident, I agree w/resident's findings & plan - HPI HPI: 07/17/19 19:40 see resident hpi - Physicial Exam PE: 07/17/19 19:41 agree with resident hpi - Critical Care Time Total Critical Care Time: 45 Critical Care Statement: The care of this patient involved high complexity decision making to prevent further life threatening deterioration of the patient 's condition and/or to evaluate & treat vital organ system(s) failure or risk of failure. - Medical Decision Making 07/17/19 19:41 68 yo female with sob exam c/w chf exacerbation pt requirng diuresis/bipap support CTA C/A/P shows no obvious PE or dissection admit hospitalist service 07/17/19 19:44
[2019-07-17 01:22] LABS: ACTIVATED PTT 27.4 SECONDS (25.2-36.5)
[2019-07-17 01:33] LABS: ALBUMIN 3.2 g/dl (3.4-5.0); BILIRUBIN,TOTAL 0.4 mg/dL (0.2-1); BLOOD UREA NITROGEN 24.6 mg/dL (7-18); CALCIUM 9.2 mg/dL (8.5-10.1); CREATININE 1.5 mg/dL (0.55-1.3); POTASSIUM 3.9 mmol/L (3.5-5.1); TOT PROT 7.6 g/dl (6.4-8.2)
[2019-07-17 01:40] LABS: N-TERMINAL BNP 1959.6 pg/ml (5-125)
--- NOTE | 2019-07-17 05:39 | PN ---
Teaching Attending Note Name of Resident: Meghan Montesinos ATTENDING PHYSICIAN STATEMENT I saw and evaluated the patient. I reviewed the resident's note and discussed the case with the resident. I agree with the resident's findings and plan as documented. SUBJECTIVE: Patient is a 67 year old woman with a PMH of Dementia, HTN, HLD, Tobacco use, Gout, CVA, COPD (albuterol+steroids, no home O2), Diastolic CHF, TIA and Seizure disorder (not on medication; no seizure since 2012) HTN, HLD presenting from home with acute onset of shortness of breath and abdominal pain. History obtained from patient and family member at bedside. 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 Denies chest pain, dizziness, urinary symptoms, fever, nausea, vomiting, constipation or diarrhea. Family tried giving albuterol inhaler without improvement, then called EMS. Per EMS, she was wheezing with decreased breath sounds bilaterally and no rales. She got 1 amp Combivent and 10mg Decadron and wheezing resolved to rhonchorus breath sounds bilaterally. Was placed on CPAP for hypoxia. Per family she is usually seen at [facility], last time admitted for a COPD exacerbation. Takes all medications appropriately at home for COPD and CHF , no recent medication changes. No prodromal symptoms including precursor fever or URI symptoms. Has a known lower back pain problem. Eliquis reportedly stopped 2 months? ago. Unclear why she was on Eliquis - during her last admission to [facility] on 09/09/18 for TIA, she was not on Eliquis. OBJECTIVE: Alert and on BiPAP Vital Signs Period Temp Pulse Resp BP Sys/Christensen Pulse Ox Last 24 Hr 98 F 95 20 154/78 96-98 HEENT: No Jaundice, eye redness or discharge, PERRLA, EOMI. Normocephalic, atraumatic. External ears are normal and hearing is grossly intact. No nasal discharge. Neck: Supple, nontender. No palpable adenopathy or thyromegaly. No JVD Chest: Good effort. Prolonged expiration and wheezing. Clear to percussion. Heart: Regular. No S3, rub or murmur Abdomen: Not distended, soft, nontender and no HSM. No rebound or guarding. Normal bowel sounds. Ext: Peripheral pulses intact. Leg edema. Skin: Warm and dry. No petechiae, rash or ecchymosis. Neuro: Alert. Oriented x3. CN 2-12 grossly intact. Sensation grossly intact in all four extremities and DTR are symmetric. Psych: Appropriate mood and affect. Good insight. Home Medications Medication Instructions Recorded Aspirin 81 mg PO DAILY 02/21/13 Allopurinol [Zyloprim -] 100 mg PO DAILY 09/10/18 Amlodipine Besylate [Norvasc -] 5 mg PO DAILY 09/10/18 Donepezil HCl 10 mg PO HS 09/10/18 Atorvastatin Ca [Lipitor] 80 mg PO HS #30 tablet 09/11/18 Apixaban [Eliquis] 5 mg PO BID 07/17/19 Calcium Carbonate [Calcium] 600 mg PO DAILY 07/17/19 Carvedilol [Coreg -] 3.125 mg PO BID 07/17/19 Ergocalciferol (Vitamin D2) 25 mcg PO DAILY 07/17/19 [Vitamin D2] Fluticasone Propion/Salmeterol 1 each IH BID 07/17/19 [Wixela 500-50 Inhub] Hydralazine HCl 50 mg PO TID 07/17/19 Pantoprazole Sodium 40 mg PO DAILY 07/17/19 Potassium 10 meq PO BID 07/17/19 Torsemide 20 mg PO BID 07/17/19 Abnormal Lab Results 07/17/19 07/17/19 07/17/19 00:40 00:40 00:50 RBC 3.23 L Hgb 7.7 L Hct 25.0 L D MCV 77.4 L MCH 23.9 L D MCHC 30.8 L RDW 21.1 H VBG pH 7.30 L POC VBG pCO2 54.7 H POC VBG pO2 < 49 H VBG O2 Sat (Mu) 46.3 L Anion Gap 6 L BUN 24.6 H Creatinine 1.5 H Random Glucose 138 H B-Natriuretic Peptide Albumin 3.2 L 07/17/19 00:50 RBC Hgb Hct MCV MCH MCHC RDW VBG pH POC VBG pCO2 POC VBG pO2 VBG O2 Sat (Mu) Anion Gap BUN Creatinine Random Glucose B-Natriuretic Peptide 1959.6 H Albumin ASSESSMENT AND PLAN: 1. Acute hypoxic&hypercapnic respiratory failure due to COPD exacerbation and CHF - No obvious precipitating factor, though inadequate diuresis is likely contributing factor. Patient placed on BiPAP in the ER after suboptimal response to steroids and bronchodilators. CTA chest/abdomen/pelvis - "No aortic aneurysm or dissection. No bowel obstruction or inflammation in visualized abdomen and pelvis; lower pelvis incompletely seen. No free fluid or free air. Normal portion of appendix seen. Unremarkable pancreas and kidneys. Cholelithiasis. Small hiatal hernia" CXR shows cardiomegaly, increased pulmonary vascular congestion and calcified aortic knob. EKG showed sinus tachycardia, low voltage QRS, LAE, prolonged QTc and no significant ST-T wave changes. Initial troponin is negative. ECHO from showed normal LV systolic function with LVEF of 65-70% and grade II diastolic dysfunction. Will treat with escalating doses of lasix to achieve adequate diuresis, restrict dietary salt intake, get daily standing weight and get another ECHO (?pericardial effusion). Will treat COPD with Xopenex, solumedrol, douneb, doxycycline and rocephin. Consult cardiology and pulmonary. Contact her PCP and [facility] during the day to get more information about recent Eliquis therapy (?) and whether she had workup for anemia before they transfused her. Will continue comprehensive care for all of patients comorbid conditions. 2. Hypoalbuminemia - Possibly due to combined effects of malnutrition and inflammation associated with comorbid chronic conditions. Will ensure adequate dietary protein intake and also consult guard captain. 3. Tobacco Use Counseled on risks associated with tobacco use. We will provide patient all the necessary assistance to facilitate smoking cessation and prescribe Nicotine patch. 4. MARISOL - Cause unclear. Monitor urine output, get UA, phosphate and PTH. Will consult nephrology and avoid nephrotoxic agents such as NSAIDS, aminoglycosides , contrast dyes and certain Alternative medicine products. 5. Low MCV Anemia - Cause unclear. Do basic anemia work up including serial stool guaiacs, reticulocyte count and iron studies. Would benefit from Procrit therapy once iron replete. GI consult for colonoscopy. 6. Morbid Obesity Counseled on the risks associated with obesity. Will provide patient all the necessary assistance, counseling and positive reinforcement to facilitate weight loss. Consult guard captain. 7. Hypertension - Restart suitable outpatient antihypertensive drugs when clinically appropriate. Revise regimen to ensure [id number] excellent BP control and food counselor patient on the injurious effects of uncontrolled hypertension. Nonpharmacologic measures to control hypertension like weight loss , salt restriction and exercise discussed. Importance of adherence to treatment regimen and attainment of normotension emphasized. 8. DVT prophylaxis - Heparin 5000u sq tid. 9. Advance directives - Full code
[2019-07-17] MEDS ORDERED: FUROSEMIDE 40 MG/4 ML INJECTABLE VIAL IVPUSH SCH ×2 (07:00→07:30)
[2019-07-17] MEDS ORDERED: methylPREDNISolone NA SUCC 40 MG/1 ML VIAL IVPUSH SCH (07:00)
[2019-07-17] MEDS: INSULIN SLIDING SCALE (NOVOLOG) 1 VIAL SQ SCH ×5 (07:10→22:25)
--- NOTE | 2019-07-17 07:10 | HP ---
CHIEF COMPLAINT: SOB PCP: Dr. Delacruz HISTORY OF PRESENT ILLNESS: 68 y.o. F PMH asthma/ COPD, diastolic CHF pEF, HTN, HLD, dementia presenting from home d/t SOB. Pt says the SOB started suddenly. She tried her rescue inhaler which did not help her SOB so her daughter called for EMS. En route to [facility] ED EMS gave her 1 x duoneb, 10mg decadron, CPAP w/ not much relief of her symptoms-- she was noted to be wheezing by EMS. In the ED pt was placed on BIPAP , duonebs q15min. Pt had a recent admission to [facility] about 1 mo. ago for acute COPD exacerbation. She also had anemia and was transfused 1U pRBCs at this time. Of note the pt has been in contact with her daughter in law who is sick, has stuffy nose and cough. ER course was notable for: (1) CXR: cardiomegaly, increased pulmonary vascular congestion and calcified aortic knob (2) decadron, duonebs q15min, bipap (3) VBG: resp acidosis Recent Travel: denies PAST MEDICAL HISTORY: as per hpi PAST SURGICAL HISTORY: hysterectomy Social History: Lives w/ daughter. Smoking: quit 1 yr ago, smoked since age 13 Alcohol: used to drink a few beers daily, quit a few years ago Drugs: denies Allergies No Known Drug Allergies Allergy (Verified 09/09/18 17:08) Shellfish Allergy (Uncoded 09/09/18 17:08) HOME MEDICATIONS: Home Medications Medication Instructions Recorded Aspirin 81 mg PO DAILY 02/21/13 Allopurinol [Zyloprim -] 100 mg PO DAILY 09/10/18 Amlodipine Besylate [Norvasc -] 5 mg PO DAILY 09/10/18 Donepezil HCl 10 mg PO HS 09/10/18 Atorvastatin Ca [Lipitor] 80 mg PO HS #30 tablet 09/11/18 Apixaban [Eliquis] 5 mg PO BID 07/17/19 Calcium Carbonate [Calcium] 600 mg PO DAILY 07/17/19 Carvedilol [Coreg -] 3.125 mg PO BID 07/17/19 Ergocalciferol (Vitamin D2) 25 mcg PO DAILY 07/17/19 [Vitamin D2] Fluticasone Propion/Salmeterol 1 each IH BID 07/17/19 [Wixela 500-50 Inhub] Hydralazine HCl 50 mg PO TID 07/17/19 Pantoprazole Sodium 40 mg PO DAILY 07/17/19 Potassium 10 meq PO BID 07/17/19 Torsemide 20 mg PO BID 07/17/19 REVIEW OF SYSTEMS CONSTITUTIONAL: Absent: fever, chills, diaphoresis, generalized weakness, malaise, loss of appetite, weight change HEENT: Absent: rhinorrhea, nasal congestion, throat pain, throat swelling, difficulty swallowing, mouth swelling, ear pain, eye pain, visual changes CARDIOVASCULAR: Absent: chest pain, syncope, palpitations, irregular heart rate, lightheadedness , peripheral edema RESPIRATORY: Absent: cough, shortness of breath, dyspnea with exertion, orthopnea, wheezing, stridor, hemoptysis GASTROINTESTINAL: Absent: abdominal pain, abdominal distension, nausea, vomiting, diarrhea, constipation, melena, hematochezia GENITOURINARY: Absent: dysuria, frequency, urgency, hesitancy, hematuria, flank pain, genital pain MUSCULOSKELETAL: Absent: myalgia, arthralgia, joint swelling, back pain, neck pain SKIN: Absent: rash, itching, pallor HEMATOLOGIC/IMMUNOLOGIC: Absent: easy bleeding, easy bruising, lymphadenopathy, frequent infections ENDOCRINE: Absent: unexplained weight gain, unexplained weight loss, heat intolerance, cold intolerance NEUROLOGIC: Absent: headache, focal weakness or paresthesias, dizziness, unsteady gait, seizure, mental status changes, bladder or bowel incontinence PSYCHIATRIC: Absent: anxiety, depression, suicidal or homicidal ideation, hallucinations. PHYSICAL EXAMINATION Vital Signs - 24 hr 07/17/19 07/17/19 07/17/19 00:42 00:43 04:23 Temperature 98 F Pulse Rate 95 H Pulse Rate [ Apical] Respiratory 20 Rate Blood Pressure 154/78 Blood Pressure [Left Arm] O2 Sat by Pulse 97 96 98 Oximetry (%) 07/17/19 07/17/19 06:19 06:42 Temperature Pulse Rate Pulse Rate [ 94 H Apical] Respiratory 20 Rate Blood Pressure Blood Pressure 157/70 [Left Arm] O2 Sat by Pulse 100 100 Oximetry (%) GENERAL: AOx2, @ baseline. HEENT: On bipap. NCAT. LUNGS: CTABL. B/l crackling lower lobes. No wheezing noted. HEART: RRR. No murmurs appreciated. ABDOMEN: Soft, nontender, not distended, normoactive bowel sounds, no guarding, no rebound, no masses. MUSCULOSKELETAL: Mild R sided back tenderness to palpation. RECTAL: No extr hemorrhoids noted. Some stool present at anal orifice. No masses palpated. No alison blood on digital exam. EXTR: 2+ pulses palpated b/l. 2+ b/ LE pitting edema. SKIN: No rashes noted. Laboratory Results - last 24 hr 07/17/19 07/17/19 07/17/19 00:40 00:40 00:40 WBC 8.2 RBC 3.23 L Hgb 7.7 L Hct 25.0 L D MCV 77.4 L MCH 23.9 L D MCHC 30.8 L RDW 21.1 H Plt Count 388 D MPV 8.8 D Absolute Neuts (auto) 5.4 Neutrophils % 65.4 D Lymphocytes % 25.0 D Monocytes % 5.5 Eosinophils % 3.3 Basophils % 0.8 Nucleated RBC % 0 Microcytosis 2+ PT with INR INR PTT (Actin FS) VBG pH POC VBG pCO2 POC VBG pO2 VBG HCO3 VBG O2 Sat (Mu) VBG Base Excess Sodium 140 Potassium 3.9 Chloride 107 Carbon Dioxide 27 Anion Gap 6 L BUN 24.6 H Creatinine 1.5 H Est GFR (CKD-EPI)AfAm 40.49 Est GFR (CKD-EPI)NonAf 34.93 Random Glucose 138 H Lactic Acid 1.7 Calcium 9.2 Total Bilirubin 0.4 AST 24 ALT 16 Alkaline Phosphatase 107 Creatine Kinase Troponin I B-Natriuretic Peptide Total Protein 7.6 Albumin 3.2 L 07/17/19 07/17/19 07/17/19 00:40 00:50 00:50 WBC RBC Hgb Hct MCV MCH MCHC RDW Plt Count MPV Absolute Neuts (auto) Neutrophils % Lymphocytes % Monocytes % Eosinophils % Basophils % Nucleated RBC % Microcytosis PT with INR 12.00 INR 1.02 PTT (Actin FS) 27.4 VBG pH 7.30 L POC VBG pCO2 54.7 H POC VBG pO2 < 49 H VBG HCO3 25.8 VBG O2 Sat (Mu) 46.3 L VBG Base Excess -0.5 Sodium Potassium Chloride Carbon Dioxide Anion Gap BUN Creatinine Est GFR (CKD-EPI)AfAm Est GFR (CKD-EPI)NonAf Random Glucose Lactic Acid Calcium Total Bilirubin AST ALT Alkaline Phosphatase Creatine Kinase 105 Troponin I 0.05 B-Natriuretic Peptide 1959.6 H Total Protein Albumin Echo 09/2018: ECHO from 09/11/18 showed normal LV systolic function with LVEF of 65-70%, grade II diastolic dysfunction. CTA chest/ CT abdomen/pelvis: no aortic aneurysm or dissection. No bowel obstruction or inflammation in visualized abdomen and pelvis; lower pelvis incompletely seen. No free fluid or free air. Normal portion of appendix seen. Unremarkable pancreas and kidneys. Cholelithiasis. Small hiatal hernia. CXR: cardiomegaly, increased pulmonary vascular congestion and calcified aortic knob ASSESSMENT/PLAN: 68 y.o. F PMH asthma/ COPD, diastolic CHF pEF, HTN, HLD, dementia presenting from home d/t SOB. #Acute CHF exacerbation -Lasix 40mg IV q6h -Solumedrol IV 40mg q6h -EKG shows sinus tachy, qtc 530s--f/u repeat -F/u ABG, echo, repeat trop -Is & Os -Daily weights -On BIPAP -Cardio consulted (Dr. Rosado) #Acute blood loss anemia -F/u FOBT -Hgb 7.7-- drop from 10.9 in 2017 -Unknown last colonoscopy but endorses a hx of rectal bleeding about 1 yr ago -F/u GI recs-- Dr. Storm consulted -F/u iron studies, ferritin, transferrin, retic count -F/u [facility] records-- pt had anemia 1 mo. ago and had blood transfusion at that time -Eliquis rcently d/c'd-- f/u PCP reharding why?? Hx of A-fib?? -- pt was not on eliquis 2017 #MARISOL -Cr 1.5, baseline ~1 -F/u UA, urine lytes -No fluids at this time d/t overload #COPD/asthma -Doxycycline & rocephin for abx coverage-- recent sick contact-- qtc on 1st ekg shows 530s, f/u repeat -F/u ABG -on BIPAP -Pulm consulted-- Dr. Jin #HTN -home meds: hydralazine, carvedilol, amlodipine #HLD -C/w atorvastatin 80mg daily #Dementia -C/w donepezil #FEN -No fluids pt is overloaded -trend lytes -NPO #PPX DVT: SCDS-- hold AC pending GI eval for anemia Visit type - Emergency Visit Emergency Visit: Yes Care time: The patient presented to the Emergency Department on the above date and was hospitalized for further evaluation of their emergent condition. - New Patient This patient is new to me today: Yes Date on this admission: 07/17/19 - Critical Care Critical Care patient: No ATTENDING PHYSICIAN STATEMENT I saw and evaluated the patient. I reviewed the resident's note and discussed the case with the resident. I agree with the resident's findings and plan as documented. SUBJECTIVE: OBJECTIVE: ASSESSMENT AND PLAN:
[2019-07-17 07:23] LABS: ARTERIAL BLD GAS O2 SATURATION 98.5 % (95-98); ARTERIAL BLOOD GAS BASE EXCESS -0.2 meq/l (-2-2); ARTERIAL BLOOD GAS PCO2 37.1 mmHg (35-45); ARTERIAL BLOOD GAS PO2 116 mmHg (80-100); ARTERIAL BLOOD GAS pH 7.42 (7.35-7.45); CARBOXYHEMOGLOBIN 1.4 % (0-2)
[2019-07-17 07:27] LABS: ALLENS TEST POSITIVE
[2019-07-17] MEDS ORDERED: DOXYCYCLINE HYCLATE 100 MG VIAL ONE (07:43)
[2019-07-17] MEDS ORDERED: CEFTRIAXONE 1 GM/50 ML BAG ONE (07:44)
[2019-07-17 08:29] LABS: BASO % 0.7 % (0-2.0); HEMATOCRIT 24.5 % (32.4-45.2); HEMOGLOBIN 7.5 GM/dL (10.7-15.3); LYMPH % 5.3 % (8-40); MCH 23.8 pg (25.7-33.7); MCHC 30.7 g/dl (32.0-36.0); MEAN CELL VOLUME 77.3 fl (80-96); MEAN PLT VOLUME 8.6 fl (7.5-11.1); PLATELET COUNT 378 K/MM3 (134-434); RBC 3.17 M/mm3 (3.60-5.2); RDW 21.3 % (11.6-15.6); WHITE BLOOD COUNT 8.7 K/mm3 (4.0-10.0)
[2019-07-17 08:50] LABS: ALBUMIN 3.2 g/dl (3.4-5.0); BILIRUBIN,TOTAL 0.5 mg/dL (0.2-1); BLOOD UREA NITROGEN 22.4 mg/dL (7-18); CALCIUM 9.2 mg/dL (8.5-10.1); CREATININE 1.4 mg/dL (0.55-1.3); POTASSIUM 3.7 mmol/L (3.5-5.1); TOT PROT 7.7 g/dl (6.4-8.2)
[2019-07-17 09:28] LABS: EPI CELLS 8.5 /HPF (0-5/HPF); HYALINE CASTS 1 /lpf (0-8); PH,URINE 6.5 (5.0-8.0); URINE APPEARANCE CLEAR; URINE BACTERIA 184.5 /hpf (NEGATIVE); URINE BILIRUBIN Negative (NEGATIVE); URINE COLOR Yellow; URINE GLUCOSE (UA) Negative (NEGATIVE); URINE KETONE Negative (NEGATIVE); URINE LEUK ESTERASE 1+ (NEGATIVE); URINE NITRITE Negative (NEGATIVE); URINE PROTEIN Trace (NEGATIVE); URINE RBC 27.9 /hpf (0-4); URINE WBC 14 /hpf (0-5)
[2019-07-17] MEDS ORDERED: DOXYCYCLINE INJECTION 100 MG in DEXTROSE 5%-WATER - 100 ML IVPB SCH (10:00)
[2019-07-17] MEDS ORDERED: CEFTRIAXONE 1 GM in DEXTROSE 5%-WATER - 50 ML IVPB SCH (10:00)
[2019-07-17 10:04] LABS: ANISOCYTOSIS 1+; MACROCYTOSIS 0; PLATELET ESTIMATE NORMAL
[2019-07-17] MEDS: amLODIPine BESYLATE 5 MG TABLET (FP) PO SCH (10:24)
--- NOTE | 2019-07-17 11:09 | CON.CARD ---
Consult Consult Specialty:: Cardiology Referred by:: Hospitalist Reason for Consultation:: Cardiac evaluation - History of Present Illness Chief Complaint: Shortness of breath History of Present Illness: Patient is a 68 year old female with underlying history of COPD/bronchial asthma , acute on chronic diastolic heart failure (HFpEF), HTN, hypercholesterolemia and underlying organic brain/dementia who presents to ED with shortness of breath. Patient is on CPAP currently and feels better. She denies chest pain or palpitations. She denies paroxysmal nocturnal dyspnea or orthopnea. She denies fever or chills. She denies nausea, vomiting, diarrhea or abdominal pain. She denies headache or lightheadedness. She had seen Dr. Mir Rayo (Agency Recruiter ) at [facility] in [place] in the past. She was admitted to [place] [place] with COPD exacerbation and anemia for which she was transfused with PRBC. 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: Yes: CVA, Dementia Cardio/Vascular: Yes: CHF (Diastolic dysfunction), HTN, Hyperlipdemia Pulmonary: Yes: Asthma, COPD Gastrointestinal: Yes: Diverticulitis - Past Surgical History Past Surgical History: Yes: Hysterectomy - Alcohol/Substance Use Hx Alcohol Use: Yes History of Substance Use: reports: None - Smoking History Smoking history: Former smoker Have you smoked in the past 12 months: No Aproximately how many cigarettes per day: 10 If you are a former smoker, when did you quit?: 2018 Home Medications - Allergies Allergies/Adverse Reactions: Allergies Allergy/AdvReac Type Severity Reaction Status Date / Time No Known Drug Allergies Allergy Verified 09/09/18 17:08 Shellfish Allergy Uncoded 09/09/18 17:08 - Home Medications Home Medications: Ambulatory Orders Aspirin 81 mg PO DAILY 02/21/13 Allopurinol [Zyloprim -] 100 mg PO DAILY 09/10/18 Amlodipine Besylate [Norvasc -] 5 mg PO DAILY 09/10/18 Donepezil HCl 10 mg PO HS 09/10/18 Atorvastatin Ca [Lipitor] 80 mg PO HS #30 tablet 09/11/18 Apixaban [Eliquis] 5 mg PO BID 07/17/19 Calcium Carbonate [Calcium] 600 mg PO DAILY 07/17/19 Carvedilol [Coreg -] 3.125 mg PO BID 07/17/19 Ergocalciferol (Vitamin D2) [Vitamin D2] 25 mcg PO DAILY 07/17/19 Fluticasone Propion/Salmeterol [Wixela 500-50 Inhub] 1 each IH BID 07/17/19 Hydralazine HCl 50 mg PO TID 07/17/19 Pantoprazole Sodium 40 mg PO DAILY 07/17/19 Potassium 10 meq PO BID 07/17/19 Torsemide 20 mg PO BID 07/17/19 Family Medical History Other Family History: Lupus, DM, HTN Review of Systems - Review of Systems Constitutional: denies: Chills, Fever Cardiovascular: reports: Shortness of Breath. denies: Chest Pain, Palpitations Respiratory: reports: Cough, SOB, SOB on Exertion. denies: Hemoptysis, Orthopnea, PND, Wheezing Gastrointestinal: denies: Abdominal Pain, Constipation, Diarrhea, Melena, Nausea , Rectal Bleeding, Vomiting Genitourinary: denies: Dysuria, Hematuria Musculoskeletal: denies: Back Pain, Joint Pain Neurological: denies: Dizziness, Headache, Seizure, Syncope Vital Signs: Vital Signs Temperature 97.8 F 07/17/19 08:13 Pulse Rate 89 07/17/19 10:45 Respiratory Rate 21 H 07/17/19 10:45 Blood Pressure 144/50 L 07/17/19 10:45 O2 Sat by Pulse Oximetry (%) 99 07/17/19 10:45 Eyes: Yes: PERRL HENT: Yes: Atraumatic Neck: Yes: Supple Respiratory: Yes: Diminished, On BiPap Gastrointestinal: Yes: Normal Bowel Sounds, Soft. No: Tenderness Cardiovascular: Yes: Regular Rate and Rhythm JVD: No PMI: Non-Displaced Heart Sounds: Yes: S1, S2. No: Gallop Murmur: Yes: Systolic Murmur, Grade 1 Edema: Yes Edema: LLE: Trace, RLE: Trace - Other Data Labs, Other Data: CBC, BMP 07/17/19 08:02 07/17/19 08:02 INR, PTT INR 1.02 (0.83-1.09) 07/17/19 00:40 Troponin, BNP 07/17/19 00:50 Troponin I 0.05 B-Natriuretic Peptide 1959.6 H Laboratory Results - last 24 hr 07/17/19 07/17/1919 00:40 00:40 00:40 WBC 8.2 RBC 3.23 L Hgb 7.7 L Hct 25.0 L D MCV 77.4 L MCH 23.9 L D MCHC 30.8 L RDW 21.1 H Plt Count 388 D MPV 8.8 D Absolute Neuts (auto) 5.4 Neutrophils % 65.4 D Neutrophils % (Manual) Band Neutrophils % Lymphocytes % 25.0 D Lymphocytes % (Manual) Monocytes % 5.5 Monocytes % (Manual) Eosinophils % 3.3 Eosinophils % (Manual) Basophils % 0.8 Basophils % (Manual) Myelocytes % (Man) Promyelocytes % (Man) Blast Cells % (Manual) Nucleated RBC % 0 Metamyelocytes Hypochromia Platelet Estimate Polychromasia Poikilocytosis Anisocytosis Microcytosis 2+ Macrocytosis Fragmented RBCs PT with INR INR PTT (Actin FS) Anticoagulation Therapy Puncture Site ABG pH ABG pCO2 at Pt Temp ABG pO2 at Pt Temp ABG HCO3 ABG O2 Sat (Measured) ABG O2 Content ABG Base Excess Musa Test VBG pH POC VBG pCO2 POC VBG pO2 VBG HCO3 VBG O2 Sat (Mu) VBG Base Excess Carboxyhemoglobin Methemoglobin O2 Delivery Device Oxygen Flow Rate Vent Mode Vent Rate Mechanical Rate Pressure Support Vent Sodium 140 Potassium 3.9 Chloride 107 Carbon Dioxide 27 Anion Gap 6 L BUN 24.6 H Creatinine 1.5 H Est GFR (CKD-EPI)AfAm 40.49 Est GFR (CKD-EPI)NonAf 34.93 POC Glucometer Random Glucose 138 H Hemoglobin A1c % Lactic Acid 1.7 Calcium 9.2 Total Bilirubin 0.4 AST 24 ALT 16 Alkaline Phosphatase 107 Creatine Kinase Troponin I B-Natriuretic Peptide Total Protein 7.6 Albumin 3.2 L Urine Color Urine Appearance Urine pH Ur Specific [place] Urine Protein Urine Glucose (UA) Urine Ketones Urine Blood Urine Nitrite Urine Bilirubin Urine Urobilinogen Ur Leukocyte Esterase Urine WBC (Auto) Urine RBC (Auto) Urine Casts (Auto) U Epithel Cells (Auto) Urine Bacteria (Auto) Stool Occult Blood 07/17/19 07/17/19 07/17/19 00:40 00:50 00:50 WBC RBC Hgb Hct MCV MCH MCHC RDW Plt Count MPV Absolute Neuts (auto) Neutrophils % Neutrophils % (Manual) Band Neutrophils % Lymphocytes % Lymphocytes % (Manual) Monocytes % Monocytes % (Manual) Eosinophils % Eosinophils % (Manual) Basophils % Basophils % (Manual) Myelocytes % (Man) Promyelocytes % (Man) Blast Cells % (Manual) Nucleated RBC % Metamyelocytes Hypochromia Platelet Estimate Polychromasia Poikilocytosis Anisocytosis Microcytosis Macrocytosis Fragmented RBCs PT with INR 12.00 INR 1.02 PTT (Actin FS) 27.4 Anticoagulation Therapy Puncture Site ABG pH ABG pCO2 at Pt Temp ABG pO2 at Pt Temp ABG HCO3 ABG O2 Sat (Measured) ABG O2 Content ABG Base Excess Musa Test VBG pH 7.30 L POC VBG pCO2 54.7 H POC VBG pO2 < 49 H VBG HCO3 25.8 VBG O2 Sat (Mu) 46.3 L VBG Base Excess -0.5 Carboxyhemoglobin Methemoglobin O2 Delivery Device Oxygen Flow Rate Vent Mode Vent Rate Mechanical Rate Pressure Support Vent Sodium Potassium Chloride Carbon Dioxide Anion Gap BUN Creatinine Est GFR (CKD-EPI)AfAm Est GFR (CKD-EPI)NonAf POC Glucometer Random Glucose Hemoglobin A1c % Lactic Acid Calcium Total Bilirubin AST ALT Alkaline Phosphatase Creatine Kinase 105 Troponin I 0.05 B-Natriuretic Peptide 1959.6 H Total Protein Albumin Urine Color Urine Appearance Urine pH Ur Specific [place] Urine Protein Urine Glucose (UA) Urine Ketones Urine Blood Urine Nitrite Urine Bilirubin Urine Urobilinogen Ur Leukocyte Esterase Urine WBC (Auto) Urine RBC (Auto) Urine Casts (Auto) U Epithel Cells (Auto) Urine Bacteria (Auto) Stool Occult Blood 07/17/19 07/17/19 07/17/19 05:55 06:00 07:00 WBC RBC Hgb Hct MCV MCH MCHC RDW Plt Count MPV Absolute Neuts (auto) Neutrophils % Neutrophils % (Manual) Band Neutrophils % Lymphocytes % Lymphocytes % (Manual) Monocytes % Monocytes % (Manual) Eosinophils % Eosinophils % (Manual) Basophils % Basophils % (Manual) Myelocytes % (Man) Promyelocytes % (Man) Blast Cells % (Manual) Nucleated RBC % Metamyelocytes Hypochromia Platelet Estimate Polychromasia Poikilocytosis Anisocytosis Microcytosis Macrocytosis Fragmented RBCs PT with INR INR PTT (Actin FS) Anticoagulation Therapy No Result Required. Puncture Site Right brachial ABG pH 7.42 ABG pCO2 at Pt Temp 37.1 ABG pO2 at Pt Temp 116 H ABG HCO3 23.6 ABG O2 Sat (Measured) 98.5 H ABG O2 Content 10.4 ABG Base Excess -0.2 Musa Test Positive VBG pH POC VBG pCO2 POC VBG pO2 VBG HCO3 VBG O2 Sat (Mu) VBG Base Excess Carboxyhemoglobin 1.4 Methemoglobin < 1.0 O2 Delivery Device No Result Required. Oxygen Flow Rate Yes Vent Mode No Result Required. Vent Rate No Result Required. Mechanical Rate No Result Required. Pressure Support Vent No Result Required. Sodium Potassium Chloride Carbon Dioxide Anion Gap BUN Creatinine Est GFR (CKD-EPI)AfAm Est GFR (CKD-EPI)NonAf POC Glucometer Random Glucose Hemoglobin A1c % Lactic Acid Calcium Total Bilirubin AST ALT Alkaline Phosphatase Creatine Kinase Troponin I B-Natriuretic Peptide Total Protein Albumin Urine Color Yellow Urine Appearance Clear Urine pH 6.5 Ur Specific [place] 1.044 H Urine Protein Trace Urine Glucose (UA) Negative Urine Ketones Negative Urine Blood Negative Urine Nitrite Negative Urine Bilirubin Negative Urine Urobilinogen 1.0 Ur Leukocyte Esterase 1+ H Urine WBC (Auto) 14 Urine RBC (Auto) 27.9 Urine Casts (Auto) 1 U Epithel Cells (Auto) 8.5 Urine Bacteria (Auto) 184.5 Stool Occult Blood Negative 07/17/19 07/17/19 07/17/19 07:00 08:02 08:02 WBC 8.7 RBC 3.17 L Hgb 7.5 L Hct 24.5 L MCV 77.3 L MCH 23.8 L MCHC 30.7 L RDW 21.3 H Plt Count 378 MPV 8.6 Absolute Neuts (auto) 8.0 Neutrophils % 92.0 H D Neutrophils % (Manual) 88.2 H Band Neutrophils % 0.0 Lymphocytes % 5.3 L D Lymphocytes % (Manual) 8.8 D Monocytes % 2.0 L Monocytes % (Manual) 3 L Eosinophils % 0.0 D Eosinophils % (Manual) 0.0 D Basophils % 0.7 Basophils % (Manual) 0.0 Myelocytes % (Man) 0 Promyelocytes % (Man) 0 Blast Cells % (Manual) 0 Nucleated RBC % 0 Metamyelocytes 0 Hypochromia 1+ Platelet Estimate Normal Polychromasia 2+ Poikilocytosis 1+ Anisocytosis 1+ Microcytosis 1+ Macrocytosis 0 Fragmented RBCs 1+ PT with INR INR PTT (Actin FS) Anticoagulation Therapy Puncture Site ABG pH ABG pCO2 at Pt Temp ABG pO2 at Pt Temp ABG HCO3 ABG O2 Sat (Measured) ABG O2 Content ABG Base Excess Musa Test VBG pH POC VBG pCO2 POC VBG pO2 VBG HCO3 VBG O2 Sat (Mu) VBG Base Excess Carboxyhemoglobin Methemoglobin O2 Delivery Device Oxygen Flow Rate Vent Mode Vent Rate Mechanical Rate Pressure Support Vent Sodium 141 Potassium 3.7 Chloride 107 Carbon Dioxide 26 Anion Gap 8 BUN 22.4 H Creatinine 1.4 H Est GFR (CKD-EPI)AfAm 44.01 Est GFR (CKD-EPI)NonAf 37.97 POC Glucometer 153 Random Glucose 149 H Hemoglobin A1c % Lactic Acid Calcium 9.2 Total Bilirubin 0.5 AST 19 ALT 14 Alkaline Phosphatase 106 Creatine Kinase Troponin I B-Natriuretic Peptide Total Protein 7.7 Albumin 3.2 L Urine Color Urine Appearance Urine pH Ur Specific [place] Urine Protein Urine Glucose (UA) Urine Ketones Urine Blood Urine Nitrite Urine Bilirubin Urine Urobilinogen Ur Leukocyte Esterase Urine WBC (Auto) Urine RBC (Auto) Urine Casts (Auto) U Epithel Cells (Auto) Urine Bacteria (Auto) Stool Occult Blood Sinus rhythm cannot rule out anterior and inferior infarct Echo: Pending Imaging - Results Chest X-ray: Report Reviewed (Mild congestion) Cat Scan: Report Reviewed (Chest CT no PTE, but with mild congestion and cardiomegaly and small consolidation and atelectasis at base, cholelithiasis on abd CT) Problem List - Problems (1) Cerebrovascular disease Code(s): I67.9 - CEREBROVASCULAR DISEASE, UNSPECIFIED (2) CKD (chronic kidney disease) Code(s): N18.9 - CHRONIC KIDNEY DISEASE, UNSPECIFIED (3) Shortness of breath Code(s): R06.02 - SHORTNESS OF BREATH (4) COPD with exacerbation Code(s): J44.1 - CHRONIC OBSTRUCTIVE PULMONARY DISEASE W (ACUTE) EXACERBATION (5) Respiratory failure with hypoxia Code(s): J96.91 - RESPIRATORY FAILURE, UNSPECIFIED WITH HYPOXIA Qualifiers: Chronicity: acute Qualified Code(s): J96.01 - Acute respiratory failure with hypoxia (6) Dementia Code(s): F03.90 - UNSPECIFIED DEMENTIA WITHOUT BEHAVIORAL DISTURBANCE (7) HTN (hypertension) Code(s): I10 - ESSENTIAL (PRIMARY) HYPERTENSION (8) Hypercholesteremia Code(s): E78.00 - PURE HYPERCHOLESTEROLEMIA, UNSPECIFIED (9) TIA (transient ischemic attack) Code(s): G45.9 - TRANSIENT CEREBRAL ISCHEMIC ATTACK, UNSPECIFIED Assessment/Plan 1. Shortness of breath due to acute on chronic LV diastolic failure (HFpEF) 2. COPD exacerbation 3. HTN 4. Hypercholesterolemia 5. Cerebrovascular disease 6. History of diverticulitis 7. Organic brain/dementia 8. CKD PLAN: 1. Serial cardiac enzymes 2. Echocardiography to assess LV/RV and valvular function 3. Diuretic (IV Lasix) BID with monitoring renal function and electrolytes 4. Bronchodilator, O2, BIPAP and antibiotic coverage 5. Add Carvedilol 3.125 mg BID and Hydralazine 50 mg BID as tolerated 6. Continue statin 7. Previously patient was given Eliquis 5 mg BID for presumed PAF, but has not been taking it as her daughter states that she was told not to take it from the hospital. Will need to obtain medical records from [facility] for clarification of whether she had PAF. If there is indication for anticoagulation she should be restarted on Eliquis, if not, then will need to assess whether she can be started on ASA Further plans are to follow Harvinder Staples MD
[2019-07-17 11:43] LABS: PHOSPHOROUS 4.3 mg/dL (2.5-4.9)
--- NOTE | 2019-07-17 12:50 | EKG ---
Test Reason : Blood Pressure : / mmHG Vent. Rate : 093 BPM Atrial Rate : 093 BPM P-R Int : 206 ms QRS Dur : 120 ms QT Int : 394 ms P-R-T Axes : 052 036 046 degrees QTc Int : 489 ms NORMAL SINUS RHYTHM POSSIBLE INFERIOR INFARCT , AGE UNDETERMINED POSSIBLE ANTERIOR INFARCT (CITED ON OR BEFORE 09-SEP-2018) ABNORMAL ECG WHEN COMPARED WITH ECG OF 17-JUL-2019 00:20, BORDERLINE CRITERIA FOR INFERIOR INFARCT ARE NOW PRESENT ST NO LONGER ELEVATED IN INFERIOR LEADS ST NO LONGER DEPRESSED IN LATERAL LEADS NONSPECIFIC T WAVE ABNORMALITY, IMPROVED IN INFERIOR LEADS Confirmed by Eric Cameron MD ([id number]) on 07/17/2019 12:50:20 PM Referred By: Confirmed By:Eric Cameron MD
--- NOTE | 2019-07-17 12:51 | EKG ---
Test Reason : Blood Pressure : / mmHG Vent. Rate : 112 BPM Atrial Rate : 112 BPM P-R Int : 176 ms QRS Dur : 106 ms QT Int : 392 ms P-R-T Axes : 059 088 071 degrees QTc Int : 535 ms POOR DATA QUALITY, INTERPRETATION MAY BE ADVERSELY AFFECTED SINUS TACHYCARDIA POSSIBLE LEFT ATRIAL ENLARGEMENT LOW VOLTAGE QRS CANNOT RULE OUT ANTERIOR INFARCT (CITED ON OR BEFORE 09-SEP-2018) ABNORMAL ECG WHEN COMPARED WITH ECG OF 09-SEP-2018 20:25, AR INTERVAL HAS DECREASED VENT. RATE HAS INCREASED BY [address] MORE ELEVATED IN INFERIOR LEADS NONSPECIFIC T WAVE ABNORMALITY, IMPROVED IN LATERAL LEADS Confirmed by Eric Cameron MD ([id number]) on 07/17/2019 12:51:19 PM Referred By: Confirmed By:Eric Cameron MD
[2019-07-17] MEDS ORDERED: FUROSEMIDE 40 MG/4 ML INJECTABLE VIAL ONE ×2 (14:01→17:37)
[2019-07-17] MEDS ORDERED: methylPREDNISolone NA SUCC 40 MG/1 ML VIAL ONE (14:01)
[2019-07-17] MEDS: FUROSEMIDE 40 MG/4 ML INJECTABLE VIAL IVPUSH SCH (14:06)
--- NOTE | 2019-07-17 14:23 | CON.PULM ---
Consult Consult Specialty:: PULM/CCM Referred by:: Hospitalist Reason for Consultation:: SOB - History of Present Illness Chief Complaint: SOB History of Present Illness: 68 F, past medical history of COPD/Asthma (more likely COPD), morbid obesity, likely OSAS (loud snoring and EDS), chronic diastolic heart failure (HFpEF), HTN , hypercholesterolemia and dementia. Hospitalized at [facility] in May under the care of Dr Ching ([employer]). Daughters at the bedside reports that her admission to [facility] was related to "too much fluid in her body and anemia requiring blood transfusion. Patient reports waking up out of her sleep with acute onset of SOB. On presentation to the ED she had severe respiratory distress requiring NIPPV support. No fever or chills. No night sweats or hemoptysis. No travel history or sick contacts. No GI or symptoms. CT: Bilateral pleural effusions with associated atelectasis and pulmonary vascular congestion. 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 No: Cancer, O2 Dependent, Previously Intubated, Pulmonary Embolus, Pulmonary Fibrosis, Sleep Apnea Gastrointestinal: Yes: Diverticulitis - Past Surgical History Past Surgical History: Yes: Hysterectomy - Alcohol/Substance Use Hx Alcohol Use: Yes History of Substance Use: reports: None - Smoking History Smoking history: Former smoker Have you smoked in the past 12 months: No Aproximately how many cigarettes per day: 10 If you are a former smoker, when did you quit?: 2018 Home Medications - Allergies Allergies/Adverse Reactions: Allergies Allergy/AdvReac Type Severity Reaction Status Date / Time No Known Drug Allergies Allergy Verified 09/09/18 17:08 Shellfish Allergy Uncoded 09/09/18 17:08 - Home Medications Home Medications: Ambulatory Orders Aspirin 81 mg PO DAILY 02/21/13 Allopurinol [Zyloprim -] 100 mg PO DAILY 09/10/18 Amlodipine Besylate [Norvasc -] 5 mg PO DAILY 09/10/18 Donepezil HCl 10 mg PO HS 09/10/18 Atorvastatin Ca [Lipitor] 80 mg PO HS #30 tablet 09/11/18 Apixaban [Eliquis] 5 mg PO BID 07/17/19 Calcium Carbonate [Calcium] 600 mg PO DAILY 07/17/19 Carvedilol [Coreg -] 3.125 mg PO BID 07/17/19 Ergocalciferol (Vitamin D2) [Vitamin D2] 25 mcg PO DAILY 07/17/19 Fluticasone Propion/Salmeterol [Wixela 500-50 Inhub] 1 each IH BID 07/17/19 Hydralazine HCl 50 mg PO TID 07/17/19 Pantoprazole Sodium 40 mg PO DAILY 07/17/19 Potassium 10 meq PO BID 07/17/19 Torsemide 20 mg PO BID 07/17/19 Review of Systems - Review of Systems Constitutional: reports: Malaise. denies: Chills, Fever, Night Sweats, Unintentional Wgt. Loss Eyes: reports: No Symptoms HENT: reports: No Symptoms Neck: reports: No Symptoms Cardiovascular: reports: Edema, Shortness of Breath. denies: Chest Pain, Palpitations Respiratory: reports: Cough, Snoring, SOB, SOB on Exertion. denies: Hemoptysis , Orthopnea, PND, Wheezing Gastrointestinal: reports: No Symptoms Genitourinary: reports: No Symptoms Breasts: reports: No Symptoms Reported Musculoskeletal: reports: No Symptoms Integumentary: reports: No Symptoms Neurological: reports: No Symptoms Endocrine: reports: No Symptoms Hematology/Lymphatic: reports: No Symptoms Psychiatric: reports: No Symptoms Physical Exam Vital Sings: Vital Signs Temperature 97.8 F 07/17/19 08:13 Pulse Rate 92 H 07/17/19 13:58 Respiratory Rate 21 H 07/17/19 13:58 Blood Pressure 138/70 07/17/19 13:58 O2 Sat by Pulse Oximetry (%) 100 07/17/19 13:58 Constitutional: Yes: Mild Distress, Obese Eyes: Yes: Conjunctiva Clear, EOM Intact HENT: Yes: Atraumatic, Normocephalic Neck: Yes: Supple, Trachea Midline Cardiovascular: Yes: Regular Rate and Rhythm Respiratory: Yes: Cough, Diminished, On Nasal O2, Rales, Rhonchi, SOB, SOB on Exertion, Tachypnea. No: Accessory Muscle Use, Stridor, Wheezes ...Inspection: Yes: WNL ...Clubbing: No Gastrointestinal: Yes: Normal Bowel Sounds, Soft, Abdomen, Obese Renal/: Yes: WNL Musculoskeletal: Yes: WNL Extremities: Yes: WNL Edema: Yes Peripheral Pulses WNL: Yes Integumentary: Yes: WNL Neurological: Yes: WNL, Alert, Oriented ...Motor Strength: WNL Psychiatric: Yes: WNL, Alert, Oriented Labs: CBC, BMP 07/17/19 08:02 07/17/19 08:02 ABG Results ABG pH 7.42 (7.35-7.45) 07/17/19 07:00 ABG pCO2 at Pt Temp 37.1 mmHg (35-45) 07/17/19 07:00 ABG pO2 at Pt Temp 116 mmHg (80-100) H 07/17/19 07:00 ABG HCO3 23.6 mmol/L (22-27) 07/17/19 07:00 ABG O2 Sat (Measured) 98.5 % (95-98) H 07/17/19 07:00 ABG O2 Content 10.4 % vol 07/17/19 07:00 ABG Base Excess -0.2 meq/l (-2-2) 07/17/19 07:00 Imaging - Results Chest X-ray: Report Reviewed, Image Reviewed Cat Scan: Report Reviewed, Image Reviewed Problem List - Problems (1) Dyspnea Code(s): R06.00 - DYSPNEA, UNSPECIFIED (2) Decompensated heart failure Code(s): I50.9 - HEART FAILURE, UNSPECIFIED (3) Morbid obesity Code(s): E66.01 - MORBID (SEVERE) OBESITY DUE TO EXCESS CALORIES (4) CKD (chronic kidney disease) Code(s): N18.9 - CHRONIC KIDNEY DISEASE, UNSPECIFIED (5) Respiratory failure with hypoxia Code(s): J96.91 - RESPIRATORY FAILURE, UNSPECIFIED WITH HYPOXIA Qualifiers: Chronicity: acute Qualified Code(s): J96.01 - Acute respiratory failure with hypoxia (6) Shortness of breath Code(s): R06.02 - SHORTNESS OF BREATH (7) Dementia Code(s): F03.90 - UNSPECIFIED DEMENTIA WITHOUT BEHAVIORAL DISTURBANCE (8) HTN (hypertension) Code(s): I10 - ESSENTIAL (PRIMARY) HYPERTENSION Assessment/Plan IMP: Do not suspect AE of Obstructive Airways Disease Do not suspect Respiratory Tract infection Probable OSAS PLAN: Monitor off systemic steroids BD TX PRN Monitor off ABX O2 as needed NIPPV support for increase WOB Will need formal OSAS evaluation after discharge Lasix BID Check ECHO Daily weight Follow I & O Will follow Thank you. Dr Bhatia
--- NOTE | 2019-07-17 15:03 | PN ---
Teaching Attending Note Name of Resident: Matt Hall ATTENDING PHYSICIAN STATEMENT I saw and evaluated the patient. I reviewed the resident's note and discussed the case with the resident. I agree with the resident's findings and plan as documented with exceptions below. SUBJECTIVE: patient seen and examined, breathing better, urinating a lot, denies any recent fevers, chills, cough, URI like illness or cough with productive sputum. OBJECTIVE: Vital Signs Period Temp Pulse Resp BP Sys/Christensen Pulse Ox Last 24 Hr 97.8 F-98 F 88-95 20-25 138-157/50-89 96-100 Intake & Output 07/14/19 07/15/19 07/16/19 07/17/19 23:59 23:59 23:59 23:59 Weight 288 lb General: lying in bed, no use of accessory muscles of respiration Neck: soft, supple, limited exam given body habitus Chest: decreased breath sounds at bases, occasional rales, no wheezing Abdomen:Soft, obese, NT Extremitie: 1+ pedal pitting edema Home Medications Medication Instructions Recorded Aspirin 81 mg PO DAILY 02/21/13 Allopurinol [Zyloprim -] 100 mg PO DAILY 09/10/18 Amlodipine Besylate [Norvasc -] 5 mg PO DAILY 09/10/18 Donepezil HCl 10 mg PO HS 09/10/18 Atorvastatin Ca [Lipitor] 80 mg PO HS #30 tablet 09/11/18 Apixaban [Eliquis] 5 mg PO BID 07/17/19 Calcium Carbonate [Calcium] 600 mg PO DAILY 07/17/19 Carvedilol [Coreg -] 3.125 mg PO BID 07/17/19 Ergocalciferol (Vitamin D2) 25 mcg PO DAILY 07/17/19 [Vitamin D2] Fluticasone Propion/Salmeterol 1 each IH BID 07/17/19 [Wixela 500-50 Inhub] Hydralazine HCl 50 mg PO TID 07/17/19 Pantoprazole Sodium 40 mg PO DAILY 07/17/19 Potassium 10 meq PO BID 07/17/19 Torsemide 20 mg PO BID 07/17/19 Active Medications Amlodipine Besylate (Norvasc -) 5 mg PO DAILY ARA Last Admin: 07/17/19 10:24 Dose: 5 mg Atorvastatin Calcium (Lipitor -) 80 mg PO HS ARA Carvedilol (Coreg -) 3.125 mg PO BID ARA Donepezil HCl (Aricept -) 10 mg PO HS ARA Furosemide (Lasix Injection -) 40 mg IVPUSH BID@0600,1400 [facility] Last Admin: 07/17/19 14:06 Dose: 40 mg Hydralazine HCl (Apresoline -) 50 mg PO TID ARA Insulin Aspart (Novolog Vial Sliding Scale -) 1 vial SQ ACHS [facility]; Protocol Last Admin: 07/17/19 11:36 Dose: Not Given Laboratory Results - last 24 hr 07/17/19 07/17/19 07/17/19 00:40 00:40 00:40 WBC 8.2 RBC 3.23 L Hgb 7.7 L Hct 25.0 L D MCV 77.4 L MCH 23.9 L D MCHC 30.8 L RDW 21.1 H Plt Count 388 D MPV 8.8 D Absolute Neuts (auto) 5.4 Neutrophils % 65.4 D Neutrophils % (Manual) Band Neutrophils % Lymphocytes % 25.0 D Lymphocytes % (Manual) Monocytes % 5.5 Monocytes % (Manual) Eosinophils % 3.3 Eosinophils % (Manual) Basophils % 0.8 Basophils % (Manual) Myelocytes % (Man) Promyelocytes % (Man) Blast Cells % (Manual) Nucleated RBC % 0 Metamyelocytes Hypochromia Platelet Estimate Polychromasia Poikilocytosis Anisocytosis Microcytosis 2+ Macrocytosis Fragmented RBCs Retic Count PT with INR INR PTT (Actin FS) Anticoagulation Therapy Puncture Site ABG pH ABG pCO2 at Pt Temp ABG pO2 at Pt Temp ABG HCO3 ABG O2 Sat (Measured) ABG O2 Content ABG Base Excess Musa Test VBG pH POC VBG pCO2 POC VBG pO2 VBG HCO3 VBG O2 Sat (Mu) VBG Base Excess Carboxyhemoglobin Methemoglobin O2 Delivery Device Oxygen Flow Rate Vent Mode Vent Rate Mechanical Rate Pressure Support Vent Sodium 140 Potassium 3.9 Chloride 107 Carbon Dioxide 27 Anion Gap 6 L BUN 24.6 H Creatinine 1.5 H Est GFR (CKD-EPI)AfAm 40.49 Est GFR (CKD-EPI)NonAf 34.93 POC Glucometer Random Glucose 138 H Hemoglobin A1c % Lactic Acid 1.7 Calcium 9.2 Phosphorus Magnesium Iron TIBC Iron Saturation Unsaturated IBC Ferritin Total Bilirubin 0.4 AST 24 ALT 16 Alkaline Phosphatase 107 Creatine Kinase Troponin I B-Natriuretic Peptide Total Protein 7.6 Albumin 3.2 L Urine Color Urine Appearance Urine pH Ur Specific [place] Urine Protein Urine Glucose (UA) Urine Ketones Urine Blood Urine Nitrite Urine Bilirubin Urine Urobilinogen Ur Leukocyte Esterase Urine WBC (Auto) Urine RBC (Auto) Urine Casts (Auto) U Epithel Cells (Auto) Urine Bacteria (Auto) Stool Occult Blood 07/17/19 07/17/19 07/17/19 00:40 00:50 00:50 WBC RBC Hgb Hct MCV MCH MCHC RDW Plt Count MPV Absolute Neuts (auto) Neutrophils % Neutrophils % (Manual) Band Neutrophils % Lymphocytes % Lymphocytes % (Manual) Monocytes % Monocytes % (Manual) Eosinophils % Eosinophils % (Manual) Basophils % Basophils % (Manual) Myelocytes % (Man) Promyelocytes % (Man) Blast Cells % (Manual) Nucleated RBC % Metamyelocytes Hypochromia Platelet Estimate Polychromasia Poikilocytosis Anisocytosis Microcytosis Macrocytosis Fragmented RBCs Retic Count PT with INR 12.00 INR 1.02 PTT (Actin FS) 27.4 Anticoagulation Therapy Puncture Site ABG pH ABG pCO2 at Pt Temp ABG pO2 at Pt Temp ABG HCO3 ABG O2 Sat (Measured) ABG O2 Content ABG Base Excess Musa Test VBG pH 7.30 L POC VBG pCO2 54.7 H POC VBG pO2 < 49 H VBG HCO3 25.8 VBG O2 Sat (Mu) 46.3 L VBG Base Excess -0.5 Carboxyhemoglobin Methemoglobin O2 Delivery Device Oxygen Flow Rate Vent Mode Vent Rate Mechanical Rate Pressure Support Vent Sodium Potassium Chloride Carbon Dioxide Anion Gap BUN Creatinine Est GFR (CKD-EPI)AfAm Est GFR (CKD-EPI)NonAf POC Glucometer Random Glucose Hemoglobin A1c % Lactic Acid Calcium Phosphorus Magnesium Iron TIBC Iron Saturation Unsaturated IBC Ferritin Total Bilirubin AST ALT Alkaline Phosphatase Creatine Kinase 105 Troponin I 0.05 B-Natriuretic Peptide 1959.6 H Total Protein Albumin Urine Color Urine Appearance Urine pH Ur Specific [place] Urine Protein Urine Glucose (UA) Urine Ketones Urine Blood Urine Nitrite Urine Bilirubin Urine Urobilinogen Ur Leukocyte Esterase Urine WBC (Auto) Urine RBC (Auto) Urine Casts (Auto) U Epithel Cells (Auto) Urine Bacteria (Auto) Stool Occult Blood 07/17/19 07/17/19 07/17/19 05:55 06:00 07:00 WBC RBC Hgb Hct MCV MCH MCHC RDW Plt Count MPV Absolute Neuts (auto) Neutrophils % Neutrophils % (Manual) Band Neutrophils % Lymphocytes % Lymphocytes % (Manual) Monocytes % Monocytes % (Manual) Eosinophils % Eosinophils % (Manual) Basophils % Basophils % (Manual) Myelocytes % (Man) Promyelocytes % (Man) Blast Cells % (Manual) Nucleated RBC % Metamyelocytes Hypochromia Platelet Estimate Polychromasia Poikilocytosis Anisocytosis Microcytosis Macrocytosis Fragmented RBCs Retic Count PT with INR INR PTT (Actin FS) Anticoagulation Therapy No Result Required. Puncture Site Right brachial ABG pH 7.42 ABG pCO2 at Pt Temp 37.1 ABG pO2 at Pt Temp 116 H ABG HCO3 23.6 ABG O2 Sat (Measured) 98.5 H ABG O2 Content 10.4 ABG Base Excess -0.2 Musa Test Positive VBG pH POC VBG pCO2 POC VBG pO2 VBG HCO3 VBG O2 Sat (Mu) VBG Base Excess Carboxyhemoglobin 1.4 Methemoglobin < 1.0 O2 Delivery Device No Result Required. Oxygen Flow Rate Yes Vent Mode No Result Required. Vent Rate No Result Required. Mechanical Rate No Result Required. Pressure Support Vent No Result Required. Sodium Potassium Chloride Carbon Dioxide Anion Gap BUN Creatinine Est GFR (CKD-EPI)AfAm Est GFR (CKD-EPI)NonAf POC Glucometer Random Glucose Hemoglobin A1c % Lactic Acid Calcium Phosphorus Magnesium Iron TIBC Iron Saturation Unsaturated IBC Ferritin Total Bilirubin AST ALT Alkaline Phosphatase Creatine Kinase Troponin I B-Natriuretic Peptide Total Protein Albumin Urine Color Yellow Urine Appearance Clear Urine pH 6.5 Ur Specific [place] 1.044 H Urine Protein Trace Urine Glucose (UA) Negative Urine Ketones Negative Urine Blood Negative Urine Nitrite Negative Urine Bilirubin Negative Urine Urobilinogen 1.0 Ur Leukocyte Esterase 1+ H Urine WBC (Auto) 14 Urine RBC (Auto) 27.9 Urine Casts (Auto) 1 U Epithel Cells (Auto) 8.5 Urine Bacteria (Auto) 184.5 Stool Occult Blood Negative 07/17/19 07/17/19 07/17/19 07:00 08:02 08:02 WBC 8.7 RBC 3.17 L Hgb 7.5 L Hct 24.5 L MCV 77.3 L MCH 23.8 L MCHC 30.7 L RDW 21.3 H Plt Count 378 MPV 8.6 Absolute Neuts (auto) 8.0 Neutrophils % 92.0 H D Neutrophils % (Manual) 88.2 H Band Neutrophils % 0.0 Lymphocytes % 5.3 L D Lymphocytes % (Manual) 8.8 D Monocytes % 2.0 L Monocytes % (Manual) 3 L Eosinophils % 0.0 D Eosinophils % (Manual) 0.0 D Basophils % 0.7 Basophils % (Manual) 0.0 Myelocytes % (Man) 0 Promyelocytes % (Man) 0 Blast Cells % (Manual) 0 Nucleated RBC % 0 Metamyelocytes 0 Hypochromia 1+ Platelet Estimate Normal Polychromasia 2+ Poikilocytosis 1+ Anisocytosis 1+ Microcytosis 1+ Macrocytosis 0 Fragmented RBCs 1+ Retic Count PT with INR INR PTT (Actin FS) Anticoagulation Therapy Puncture Site ABG pH ABG pCO2 at Pt Temp ABG pO2 at Pt Temp ABG HCO3 ABG O2 Sat (Measured) ABG O2 Content ABG Base Excess Musa Test VBG pH POC VBG pCO2 POC VBG pO2 VBG HCO3 VBG O2 Sat (Mu) VBG Base Excess Carboxyhemoglobin Methemoglobin O2 Delivery Device Oxygen Flow Rate Vent Mode Vent Rate Mechanical Rate Pressure Support Vent Sodium 141 Potassium 3.7 Chloride 107 Carbon Dioxide 26 Anion Gap 8 BUN 22.4 H Creatinine 1.4 H Est GFR (CKD-EPI)AfAm 44.01 Est GFR (CKD-EPI)NonAf 37.97 POC Glucometer 153 Random Glucose 149 H Hemoglobin A1c % Lactic Acid Calcium 9.2 Phosphorus 4.3 Magnesium 2.0 Iron 19 L TIBC 400 Iron Saturation 4 L Unsaturated IBC 381 H Ferritin 27.2 Total Bilirubin 0.5 AST 19 ALT 14 Alkaline Phosphatase 106 Creatine Kinase Troponin I 0.06 H B-Natriuretic Peptide Total Protein 7.7 Albumin 3.2 L Urine Color Urine Appearance Urine pH Ur Specific [place] Urine Protein Urine Glucose (UA) Urine Ketones Urine Blood Urine Nitrite Urine Bilirubin Urine Urobilinogen Ur Leukocyte Esterase Urine WBC (Auto) Urine RBC (Auto) Urine Casts (Auto) U Epithel Cells (Auto) Urine Bacteria (Auto) Stool Occult Blood 07/17/19 07/17/19 07/17/19 08:02 08:02 11:31 WBC RBC Hgb Hct MCV MCH MCHC RDW Plt Count MPV Absolute Neuts (auto) Neutrophils % Neutrophils % (Manual) Band Neutrophils % Lymphocytes % Lymphocytes % (Manual) Monocytes % Monocytes % (Manual) Eosinophils % Eosinophils % (Manual) Basophils % Basophils % (Manual) Myelocytes % (Man) Promyelocytes % (Man) Blast Cells % (Manual) Nucleated RBC % Metamyelocytes Hypochromia Platelet Estimate Polychromasia Poikilocytosis Anisocytosis Microcytosis Macrocytosis Fragmented RBCs Retic Count 2.11 H D PT with INR INR PTT (Actin FS) Anticoagulation Therapy Puncture Site ABG pH ABG pCO2 at Pt Temp ABG pO2 at Pt Temp ABG HCO3 ABG O2 Sat (Measured) ABG O2 Content ABG Base Excess Musa Test VBG pH POC VBG pCO2 POC VBG pO2 VBG HCO3 VBG O2 Sat (Mu) VBG Base Excess Carboxyhemoglobin Methemoglobin O2 Delivery Device Oxygen Flow Rate Vent Mode Vent Rate Mechanical Rate Pressure Support Vent Sodium Potassium Chloride Carbon Dioxide Anion Gap BUN Creatinine Est GFR (CKD-EPI)AfAm Est GFR (CKD-EPI)NonAf POC Glucometer 138 Random Glucose Hemoglobin A1c % 5.1 Lactic Acid Calcium Phosphorus Magnesium Iron TIBC Iron Saturation Unsaturated IBC Ferritin Total Bilirubin AST ALT Alkaline Phosphatase Creatine Kinase Troponin I B-Natriuretic Peptide Total Protein Albumin Urine Color Urine Appearance Urine pH Ur Specific [place] Urine Protein Urine Glucose (UA) Urine Ketones Urine Blood Urine Nitrite Urine Bilirubin Urine Urobilinogen Ur Leukocyte Esterase Urine WBC (Auto) Urine RBC (Auto) Urine Casts (Auto) U Epithel Cells (Auto) Urine Bacteria (Auto) Stool Occult Blood CT chest/A/P results noted EKG: sinus tachycardia ASSESSMENT AND PLAN: 68 yof with PMhx of diastolic HF, HTN, HLD, morbid obesity, asthma/bronchitis, reported recurrent recent admissions with CHF, also anemia s/p recent PRBC admitted with dyspnea. -Acute hypoxic/hypercapneic respiratory failure -Acute on chronic diastolic heart failure exacerbation -Uncontrolled HTN -MARISOL, suspect cardiorenal. -?H/o PAF -Anemia, ?Acute vs chronic, -Asthma/Bronchitis, do not suspect in exacerbation or infectious process -HTN -HLD -Morbid obesity -Suspected TREY Plan: Increase lasix to 40 mg IV BID, strict I/Os, daily weights. 2D echo noted Cardiology input noted. Resume coreg/hydralazine. Family concerned about recurrent CHF. Counseled on good BP control and outpatient sleep study. Nutrition consult Continue diuresis, monitor renal function. recently on ?Elipingis, d/you given anemia. Will retrieve more information from PCP/outpatient [employer]. Check iron panel, retic count, FOBT. Monitor h/h but hold off on transfusion today given ongoing volume overload and need for diuresis. No gross evidence of bleed or hemodynamic instability. Advance diet. GI consulted on admission, follow up recs. Pulmonary input noted. Monitor off steroids/abx. DVTPPX SCDs for now. Will need PT eval and home oxygen needs assessment prior to dc Discussed with patient and daughters at bedside in detail, all questions answered.
--- NOTE | 2019-07-17 16:08 | ECHO ---
Name: JUANJO DUBOIS Exam:Adult Echocardiogram Study Date: 07/17/2019 01:56 PM Age: 68 yrs Reason For Study: CHF EXACERBATION Height: 67 in Weight: 288 lb BSA: 2.4 m2 MMode/2D Measurements & Calculations IVSd: 1.3 cm Ao root diam: 2.5 cm LVIDd: 5.9 cm LA dimension: 4.6 cm LVIDs: 3.5 cm LVPWd: 1.2 cm EDV(Teich): 170.0 ml LVOT diam: 2.2 cm ESV(Teich): 49.6 ml Doppler Measurements & Calculations MV E max wyatt: 149.3 cm/sec Ao V2 max: 173.7 cm/sec MV A max wyatt: 152.0 cm/sec Ao max P.1 mmHg MV E/A: 0.98 MV dec time: 0.14 sec MARICEL(V,D): 1.7 cm2 LV V1 max P.5 mmHg AI dec slope: 292.3 cm/sec2 LV V1 max: 79.6 cm/sec MR max wyatt: 517.6 cm/sec Med Peak E' Wyatt: 3.9 cm/sec MR max P.3 mmHg Med E/e': 37.8 Lat Peak E' Wyatt: 10.7 cm/sec Lat E/e': 13.9 Procedure The study was technically difficult with many images being suboptimal in quality. Left Ventricle There is mild concentric left ventricular hypertrophy. Left ventricular systolic function is grossly normal. Ejection Fraction = 55%. Right Ventricle The right ventricle is normal in size and function. Atria The left atrium is moderately dilated. Right atrial size is normal. Mitral Valve The mitral valve is normal in structure and function. There is mild mitral regurgitation. Tricuspid Valve The tricuspid valve is normal in structure and function. Assuming the RA pressure is 5 mmHg. There wa s insufficient TR detected to calculate RV systolic pressure. Aortic Valve The aortic valve is not well visualized. No hemodynamically significant valvular aortic stenosis. Mil d aortic regurgitation. Pulmonic Valve The pulmonic valve is not well visualized. Great Vessels The aortic root is normal size. Pericardium/Pleura There is no pericardial effusion. Interpretation Summary The study was technically difficult with many images being suboptimal in quality. Left ventricular systolic function is grossly normal. There is mild concentric left ventricular hypertrophy. The right ventricle is normal in size and function. The left atrium is moderately dilated. Michael Garcia 07/17/2019 04:08 PM
[2019-07-17] MEDS ORDERED: FUROSEMIDE 40 MG/4 ML INJECTABLE VIAL IVPUSH ONE (17:10)
--- NOTE | 2019-07-17 18:37 | PN ---
Progress Note (short form) - Note Progress Note: GI CONSULT DICTATED - HOLD A/C - PPI - CLEAR LIQUID DIET ADVANCE TO FULL LIQUID DIET TOLERATED - SERIAL CBC Q12 - CONSIDERING HER HISTORY OF ANGIODYPLASIA SHE WOULD BENEFIT FROM A DIAGNOSTIC EGD LATE IN THE WEEK ONCE SHE IS RISK STRATIFIED BY CARDIOLOGY AND HAS BEEN OFF A/C FOR 72 HOURS
--- NOTE | 2019-07-17 19:25 | PN ---
Physical Exam: SUBJECTIVE: Patient seen and examined. Has SOB, on BiPAP OBJECTIVE: Vital Signs Period Temp Pulse Resp BP Sys/Christensen Pulse Ox Last 24 Hr 97.8 F-98 F 88-98 20-25 138-157/50-89 96-100 GENERAL: The patient is awake, alert. NAD HEAD: Normal with no signs of trauma. EYES: sclera anicteric, conjunctival pallor. ENT: Ears normal, nares patent, moist mucous membranes. NECK: Trachea midline, full range of motion, supple. LUNGS: mild crackles to auscultation lung basesbilaterally, mild wheezes, no accessory muscle use. HEART: Regular rate and rhythm, S1, S2 without murmur, rub or gallop. ABDOMEN: Soft, nontender, nondistended, no guarding, no rebound. EXTREMITIES: 2+ pulses, warm, well-perfused, no edema. NEUROLOGICAL: Normal speech PSYCH: Normal mood, normal affect. SKIN: Warm, dry, normal turgor, no rashes or lesions noted Laboratory Results - last 24 hr 07/17/19 07/17/19 07/17/19 00:40 00:40 00:40 WBC 8.2 RBC 3.23 L Hgb 7.7 L Hct 25.0 L D MCV 77.4 L MCH 23.9 L D MCHC 30.8 L RDW 21.1 H Plt Count 388 D MPV 8.8 D Absolute Neuts (auto) 5.4 Neutrophils % 65.4 D Neutrophils % (Manual) Band Neutrophils % Lymphocytes % 25.0 D Lymphocytes % (Manual) Monocytes % 5.5 Monocytes % (Manual) Eosinophils % 3.3 Eosinophils % (Manual) Basophils % 0.8 Basophils % (Manual) Myelocytes % (Man) Promyelocytes % (Man) Blast Cells % (Manual) Nucleated RBC % 0 Metamyelocytes Hypochromia Platelet Estimate Polychromasia Poikilocytosis Anisocytosis Microcytosis 2+ Macrocytosis Fragmented RBCs Retic Count PT with INR INR PTT (Actin FS) Anticoagulation Therapy Puncture Site ABG pH ABG pCO2 at Pt Temp ABG pO2 at Pt Temp ABG HCO3 ABG O2 Sat (Measured) ABG O2 Content ABG Base Excess Musa Test VBG pH POC VBG pCO2 POC VBG pO2 VBG HCO3 VBG O2 Sat (Mu) VBG Base Excess Carboxyhemoglobin Methemoglobin O2 Delivery Device Oxygen Flow Rate Vent Mode Vent Rate Mechanical Rate Pressure Support Vent Sodium 140 Potassium 3.9 Chloride 107 Carbon Dioxide 27 Anion Gap 6 L BUN 24.6 H Creatinine 1.5 H Est GFR (CKD-EPI)AfAm 40.49 Est GFR (CKD-EPI)NonAf 34.93 POC Glucometer Random Glucose 138 H Hemoglobin A1c % Lactic Acid 1.7 Calcium 9.2 Phosphorus Magnesium Iron TIBC Iron Saturation Unsaturated IBC Ferritin Total Bilirubin 0.4 AST 24 ALT 16 Alkaline Phosphatase 107 Creatine Kinase Troponin I B-Natriuretic Peptide Total Protein 7.6 Albumin 3.2 L Urine Color Urine Appearance Urine pH Ur Specific [place] Urine Protein Urine Glucose (UA) Urine Ketones Urine Blood Urine Nitrite Urine Bilirubin Urine Urobilinogen Ur Leukocyte Esterase Urine WBC (Auto) Urine RBC (Auto) Urine Casts (Auto) U Epithel Cells (Auto) Urine Bacteria (Auto) Stool Occult Blood 07/17/19 07/17/19 07/17/19 00:40 00:50 00:50 WBC RBC Hgb Hct MCV MCH MCHC RDW Plt Count MPV Absolute Neuts (auto) Neutrophils % Neutrophils % (Manual) Band Neutrophils % Lymphocytes % Lymphocytes % (Manual) Monocytes % Monocytes % (Manual) Eosinophils % Eosinophils % (Manual) Basophils % Basophils % (Manual) Myelocytes % (Man) Promyelocytes % (Man) Blast Cells % (Manual) Nucleated RBC % Metamyelocytes Hypochromia Platelet Estimate Polychromasia Poikilocytosis Anisocytosis Microcytosis Macrocytosis Fragmented RBCs Retic Count PT with INR 12.00 INR 1.02 PTT (Actin FS) 27.4 Anticoagulation Therapy Puncture Site ABG pH ABG pCO2 at Pt Temp ABG pO2 at Pt Temp ABG HCO3 ABG O2 Sat (Measured) ABG O2 Content ABG Base Excess Musa Test VBG pH 7.30 L POC VBG pCO2 54.7 H POC VBG pO2 < 49 H VBG HCO3 25.8 VBG O2 Sat (Mu) 46.3 L VBG Base Excess -0.5 Carboxyhemoglobin Methemoglobin O2 Delivery Device Oxygen Flow Rate Vent Mode Vent Rate Mechanical Rate Pressure Support Vent Sodium Potassium Chloride Carbon Dioxide Anion Gap BUN Creatinine Est GFR (CKD-EPI)AfAm Est GFR (CKD-EPI)NonAf POC Glucometer Random Glucose Hemoglobin A1c % Lactic Acid Calcium Phosphorus Magnesium Iron TIBC Iron Saturation Unsaturated IBC Ferritin Total Bilirubin AST ALT Alkaline Phosphatase Creatine Kinase 105 Troponin I 0.05 B-Natriuretic Peptide 1959.6 H Total Protein Albumin Urine Color Urine Appearance Urine pH Ur Specific [place] Urine Protein Urine Glucose (UA) Urine Ketones Urine Blood Urine Nitrite Urine Bilirubin Urine Urobilinogen Ur Leukocyte Esterase Urine WBC (Auto) Urine RBC (Auto) Urine Casts (Auto) U Epithel Cells (Auto) Urine Bacteria (Auto) Stool Occult Blood 07/17/19 07/17/19 07/17/19 05:55 06:00 07:00 WBC RBC Hgb Hct MCV MCH MCHC RDW Plt Count MPV Absolute Neuts (auto) Neutrophils % Neutrophils % (Manual) Band Neutrophils % Lymphocytes % Lymphocytes % (Manual) Monocytes % Monocytes % (Manual) Eosinophils % Eosinophils % (Manual) Basophils % Basophils % (Manual) Myelocytes % (Man) Promyelocytes % (Man) Blast Cells % (Manual) Nucleated RBC % Metamyelocytes Hypochromia Platelet Estimate Polychromasia Poikilocytosis Anisocytosis Microcytosis Macrocytosis Fragmented RBCs Retic Count PT with INR INR PTT (Actin FS) Anticoagulation Therapy No Result Required. Puncture Site Right brachial ABG pH 7.42 ABG pCO2 at Pt Temp 37.1 ABG pO2 at Pt Temp 116 H ABG HCO3 23.6 ABG O2 Sat (Measured) 98.5 H ABG O2 Content 10.4 ABG Base Excess -0.2 Musa Test Positive VBG pH POC VBG pCO2 POC VBG pO2 VBG HCO3 VBG O2 Sat (Mu) VBG Base Excess Carboxyhemoglobin 1.4 Methemoglobin < 1.0 O2 Delivery Device No Result Required. Oxygen Flow Rate Yes Vent Mode No Result Required. Vent Rate No Result Required. Mechanical Rate No Result Required. Pressure Support Vent No Result Required. Sodium Potassium Chloride Carbon Dioxide Anion Gap BUN Creatinine Est GFR (CKD-EPI)AfAm Est GFR (CKD-EPI)NonAf POC Glucometer Random Glucose Hemoglobin A1c % Lactic Acid Calcium Phosphorus Magnesium Iron TIBC Iron Saturation Unsaturated IBC Ferritin Total Bilirubin AST ALT Alkaline Phosphatase Creatine Kinase Troponin I B-Natriuretic Peptide Total Protein Albumin Urine Color Yellow Urine Appearance Clear Urine pH 6.5 Ur Specific [place] 1.044 H Urine Protein Trace Urine Glucose (UA) Negative Urine Ketones Negative Urine Blood Negative Urine Nitrite Negative Urine Bilirubin Negative Urine Urobilinogen 1.0 Ur Leukocyte Esterase 1+ H Urine WBC (Auto) 14 Urine RBC (Auto) 27.9 Urine Casts (Auto) 1 U Epithel Cells (Auto) 8.5 Urine Bacteria (Auto) 184.5 Stool Occult Blood Negative 07/17/19 07/17/19 07/17/19 07:00 08:02 08:02 WBC 8.7 RBC 3.17 L Hgb 7.5 L Hct 24.5 L MCV 77.3 L MCH 23.8 L MCHC 30.7 L RDW 21.3 H Plt Count 378 MPV 8.6 Absolute Neuts (auto) 8.0 Neutrophils % 92.0 H D Neutrophils % (Manual) 88.2 H Band Neutrophils % 0.0 Lymphocytes % 5.3 L D Lymphocytes % (Manual) 8.8 D Monocytes % 2.0 L Monocytes % (Manual) 3 L Eosinophils % 0.0 D Eosinophils % (Manual) 0.0 D Basophils % 0.7 Basophils % (Manual) 0.0 Myelocytes % (Man) 0 Promyelocytes % (Man) 0 Blast Cells % (Manual) 0 Nucleated RBC % 0 Metamyelocytes 0 Hypochromia 1+ Platelet Estimate Normal Polychromasia 2+ Poikilocytosis 1+ Anisocytosis 1+ Microcytosis 1+ Macrocytosis 0 Fragmented RBCs 1+ Retic Count PT with INR INR PTT (Actin FS) Anticoagulation Therapy Puncture Site ABG pH ABG pCO2 at Pt Temp ABG pO2 at Pt Temp ABG HCO3 ABG O2 Sat (Measured) ABG O2 Content ABG Base Excess Musa Test VBG pH POC VBG pCO2 POC VBG pO2 VBG HCO3 VBG O2 Sat (Mu) VBG Base Excess Carboxyhemoglobin Methemoglobin O2 Delivery Device Oxygen Flow Rate Vent Mode Vent Rate Mechanical Rate Pressure Support Vent Sodium 141 Potassium 3.7 Chloride 107 Carbon Dioxide 26 Anion Gap 8 BUN 22.4 H Creatinine 1.4 H Est GFR (CKD-EPI)AfAm 44.01 Est GFR (CKD-EPI)NonAf 37.97 POC Glucometer 153 Random Glucose 149 H Hemoglobin A1c % Lactic Acid Calcium 9.2 Phosphorus 4.3 Magnesium 2.0 Iron 19 L TIBC 400 Iron Saturation 4 L Unsaturated IBC 381 H Ferritin 27.2 Total Bilirubin 0.5 AST 19 ALT 14 Alkaline Phosphatase 106 Creatine Kinase Troponin I 0.06 H B-Natriuretic Peptide Total Protein 7.7 Albumin 3.2 L Urine Color Urine Appearance Urine pH Ur Specific [place] Urine Protein Urine Glucose (UA) Urine Ketones Urine Blood Urine Nitrite Urine Bilirubin Urine Urobilinogen Ur Leukocyte Esterase Urine WBC (Auto) Urine RBC (Auto) Urine Casts (Auto) U Epithel Cells (Auto) Urine Bacteria (Auto) Stool Occult Blood 07/17/19 07/17/19 07/17/19 08:02 08:02 11:31 WBC RBC Hgb Hct MCV MCH MCHC RDW Plt Count MPV Absolute Neuts (auto) Neutrophils % Neutrophils % (Manual) Band Neutrophils % Lymphocytes % Lymphocytes % (Manual) Monocytes % Monocytes % (Manual) Eosinophils % Eosinophils % (Manual) Basophils % Basophils % (Manual) Myelocytes % (Man) Promyelocytes % (Man) Blast Cells % (Manual) Nucleated RBC % Metamyelocytes Hypochromia Platelet Estimate Polychromasia Poikilocytosis Anisocytosis Microcytosis Macrocytosis Fragmented RBCs Retic Count 2.11 H D PT with INR INR PTT (Actin FS) Anticoagulation Therapy Puncture Site ABG pH ABG pCO2 at Pt Temp ABG pO2 at Pt Temp ABG HCO3 ABG O2 Sat (Measured) ABG O2 Content ABG Base Excess Musa Test VBG pH POC VBG pCO2 POC VBG pO2 VBG HCO3 VBG O2 Sat (Mu) VBG Base Excess Carboxyhemoglobin Methemoglobin O2 Delivery Device Oxygen Flow Rate Vent Mode Vent Rate Mechanical Rate Pressure Support Vent Sodium Potassium Chloride Carbon Dioxide Anion Gap BUN Creatinine Est GFR (CKD-EPI)AfAm Est GFR (CKD-EPI)NonAf POC Glucometer 138 Random Glucose Hemoglobin A1c % 5.1 Lactic Acid Calcium Phosphorus Magnesium Iron TIBC Iron Saturation Unsaturated IBC Ferritin Total Bilirubin AST ALT Alkaline Phosphatase Creatine Kinase Troponin I B-Natriuretic Peptide Total Protein Albumin Urine Color Urine Appearance Urine pH Ur Specific [place] Urine Protein Urine Glucose (UA) Urine Ketones Urine Blood Urine Nitrite Urine Bilirubin Urine Urobilinogen Ur Leukocyte Esterase Urine WBC (Auto) Urine RBC (Auto) Urine Casts (Auto) U Epithel Cells (Auto) Urine Bacteria (Auto) Stool Occult Blood 07/17/19 17:30 WBC RBC Hgb Hct MCV MCH MCHC RDW Plt Count MPV Absolute Neuts (auto) Neutrophils % Neutrophils % (Manual) Band Neutrophils % Lymphocytes % Lymphocytes % (Manual) Monocytes % Monocytes % (Manual) Eosinophils % Eosinophils % (Manual) Basophils % Basophils % (Manual) Myelocytes % (Man) Promyelocytes % (Man) Blast Cells % (Manual) Nucleated RBC % Metamyelocytes Hypochromia Platelet Estimate Polychromasia Poikilocytosis Anisocytosis Microcytosis Macrocytosis Fragmented RBCs Retic Count PT with INR INR PTT (Actin FS) Anticoagulation Therapy Puncture Site ABG pH ABG pCO2 at Pt Temp ABG pO2 at Pt Temp ABG HCO3 ABG O2 Sat (Measured) ABG O2 Content ABG Base Excess Musa Test VBG pH POC VBG pCO2 POC VBG pO2 VBG HCO3 VBG O2 Sat (Mu) VBG Base Excess Carboxyhemoglobin Methemoglobin O2 Delivery Device Oxygen Flow Rate Vent Mode Vent Rate Mechanical Rate Pressure Support Vent Sodium Potassium Chloride Carbon Dioxide Anion Gap BUN Creatinine Est GFR (CKD-EPI)AfAm Est GFR (CKD-EPI)NonAf POC Glucometer 166 Random Glucose Hemoglobin A1c % Lactic Acid Calcium Phosphorus Magnesium Iron TIBC Iron Saturation Unsaturated IBC Ferritin Total Bilirubin AST ALT Alkaline Phosphatase Creatine Kinase Troponin I B-Natriuretic Peptide Total Protein Albumin Urine Color Urine Appearance Urine pH Ur Specific [place] Urine Protein Urine Glucose (UA) Urine Ketones Urine Blood Urine Nitrite Urine Bilirubin Urine Urobilinogen Ur Leukocyte Esterase Urine WBC (Auto) Urine RBC (Auto) Urine Casts (Auto) U Epithel Cells (Auto) Urine Bacteria (Auto) Stool Occult Blood Active Medications Generic Name Dose Route Start Last Admin Trade Name Waldoq PRN Reason Stop Dose Admin Amlodipine Besylate 5 mg 07/17/19 10:00 07/17/19 10:24 Norvasc - PO 5 mg DAILY ARA Administration Atorvastatin Calcium 80 mg 07/17/19 22:00 Lipitor - PO HS ARA Carvedilol 3.125 mg 07/17/19 22:00 Coreg - PO BID ARA Donepezil HCl 10 mg 07/17/19 22:00 Aricept - PO HS ARA Furosemide 40 mg 07/17/19 14:00 07/17/19 14:06 Lasix Injection - IVPUSH 40 mg BID@0600,1400 ARA Administration Hydralazine HCl 50 mg 07/17/19 22:00 Apresoline - PO TID ARA Insulin Aspart 1 vial 07/17/19 07:00 07/17/19 18:08 Novolog Vial Sliding Scale - SQ Not Given ACHS [facility] Protocol ASSESSMENT/PLAN: 68 y.o. F PMH asthma/ COPD, diastolic CHF pEF, HTN, HLD, dementia presenting from home d/t SOB. #Acute CHF exacerbation >echo(07/17/19): LV is normal, mild LVH >CTA(07/17/19): neg AAA, neg PE, trace pleural effusion >EKG shows sinus tachy, qtc 530s -Lasix 40mg IV BID -Solumedrol IV 40mg q6h -- dc'd -F/u ABG, repeat trop -Is & Os -Daily weights -On BIPAP -Cardio consulted (Dr. Rosado) #Acute blood loss anemia > neg FOBT -Hgb 7.7-- drop from 10.9 in 2017 -Unknown last colonoscopy but endorses a hx of rectal bleeding about 1 yr ago -F/u GI recs-- Dr. Montgomery -- hold A/C -- PPI -- CLEAR LIQUID DIET ADVANCE TO FULL LIQUID DIET TOLERATED -- SERIAL CBC Q12 -- DIAGNOSTIC EGD LATE IN THE WEEK ONCE SHE IS RISK STRATIFIED BY CARDIOLOGY AND HAS BEEN OFF A/C FOR 72 HOURS -F/u iron studies, ferritin, transferrin, retic count -F/u [facility] records-- pt had anemia 1 mo. ago and had blood transfusion at that time -Eliquis rcently d/c'd-- f/u PCP reharding why?? Hx of A-fib?? -- pt was not on eliquis 2017 --as per [employer](Dr Mir Mims) TTE(March 2019) showed thrombus x2 of RA, but then Dave MENA(April 2019) showed no thrombus -- Eliquis dc'd #MARISOL >HbA1c 5.1 -Cr 1.5, baseline ~1 -F/u UA, urine lytes -No fluids at this time d/t overload #COPD/asthma >ABG(07/17/19): 7.42/37.1/116/23.6/98.5/-0.2 on BiPAP -Doxycycline & rocephin for abx coverage-- recent sick contact-- qtc on 1st ekg shows 530s, f/u repeat -on BIPAP -Pulm consulted-- Dr. Jin --NIPPV support for increase WOB --Will need formal OSAS evaluation after discharge #HTN -home meds: hydralazine, carvedilol, amlodipine #HLD -C/w atorvastatin 80mg daily #Dementia -C/w donepezil #FEN -No fluids pt is overloaded -trend lytes -low fat/sugar diet #PPX DVT: SCDS-- hold AC pending GI eval for anemia Visit type - Emergency Visit Emergency Visit: No - New Patient This patient is new to me today: No - Critical Care Critical Care patient: No ATTENDING PHYSICIAN STATEMENT I saw and evaluated the patient. I reviewed the resident's note and discussed the case with the resident. I agree with the resident's findings and plan as documented. SUBJECTIVE: OBJECTIVE: ASSESSMENT AND PLAN:
--- NOTE | 2019-07-17 19:26 | CONS ---
GASTROENTEROLOGY CONSULTATION DATE OF CONSULTATION: 07/17/2019 Patient is a 68-year-old female with a history of COPD, diastolic heart failure, hypertension, hypercholesterolemia, dementia, also with a history of angioectasias, who presented to the hospital with weakness, and shortness of breath which began a few days prior to admission as per the daughter at the bedside. Patient denies any abdominal pain, nausea, vomiting, hematemesis, melena, or hematochezia. As per the daughter, she was admitted at [facility] and, in May, underwent an upper endoscopy which revealed angiodysplasias which were cauterized at the time. The daughter did have the report available. As per colonoscopy, she had an incomplete colonoscopy secondary to poor bowel preparation at the time. PAST MEDICAL AND SURGICAL HISTORY: As listed in the HPI. Hysterectomy. ALLERGIES: No known drug allergies. She is allergic to SHELLFISH. SOCIAL HISTORY: Does not drink or smoke or use drugs. FAMILY HISTORY: No history of GI or gynecological malignancy. HOME MEDICATIONS: Reviewed and include aspirin, allopurinol, amlodipine, donepezil, atorvastatin, Eliquis, calcium, , vitamin D, hydralazine, pantoprazole, potassium, and torsemide. REVIEW OF SYSTEMS: As per the HPI. PHYSICAL EXAMINATION: Vital Signs: Temperature 98.6, blood pressure 138/70, respiratory rate 12, saturation of oxygen 100% on 3 L. General: In no acute distress. HEENT: Anicteric sclera. Cardiovascular: S1, S2. Regular rate and rhythm. Lungs: Bilaterally clear to auscultation. Abdomen: Soft and nontender. Extremities: With lower extremity edema. LABORATORY DATA: White blood cell count 8.7, hemoglobin 7.5 and hematocrit 24, MCV 77, platelet count 378. INR 1. Sodium 141, potassium 3.7, BUN 22 and creatinine 1.4, glucose 149. Iron 19, TIBC 400, iron saturation 4, ferritin 27. Troponin 0.06. Stool for occult blood is negative. Abdomen and pelvis CT scan was performed and revealed no evidence of any dilation or dissection. Heavy vascular calcification of the aorta most marked at the origins of the intraabdominal branches. No evidence of PE, cardiomegaly, and possible mild congestion. Trace bilateral pleural effusions, cholelithiasis. No other pathology in the abdomen. IMPRESSION: Microcytic anemia with a known history of angioectasias. 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 She may also have an underlying hematological process in addition to her known angiodysplasias. At this time, there is no sign of an overt GI bleed. She was previously on Eliquis therapy which should be held, as well as her aspirin for now. She does have a positive troponin. She will need a cardiology evaluation. She should be transfused PRBCs to a hemoglobin above 9. Serial CBCs q.12. Protonix 40 mg IV daily. She can be started on a clear-liquid diet. If her hemoglobin is stable, this can be advanced to a full-liquid diet. We will plan for a diagnostic upper endoscopy once she is risk stratified by Cardiology and she has been off of the Eliquis for 72 hours. Therefore, plan for diagnostic upper endoscopy at the end of the week. This patient will be followed closely by the GI team. DO HALEY LAINEZ/[id number]
[2019-07-17 20:37] LABS: HEMOGLOBIN 7.6 GM/dL (10.7-15.3); LYMPH % 10.9 % (8-40); MCH 23.5 pg (25.7-33.7); MCHC 30.4 g/dl (32.0-36.0); MEAN CELL VOLUME 77.1 fl (80-96); MONO % 6.2 % (3.8-10.2); NEUT % 81.9 % (42.8-82.8); PLATELET COUNT 281 K/MM3 (134-434); RBC 3.25 M/mm3 (3.60-5.2); RDW 21.1 % (11.6-15.6); WHITE BLOOD COUNT 10.4 K/mm3 (4.0-10.0)
[2019-07-17 21:18] LABS: PLATELET ESTIMATE ADEQUATE
[2019-07-17] MEDS: hydrALAZINE HCL 25 MG TABLET (FP) PO SCH (22:24)
[2019-07-17] MEDS: DONEPEZIL HCL 10 MG TABLET (FP) PO SCH (22:24)
[2019-07-17] MEDS: ATORVASTATIN CA 40 MG TABLET (FP) PO SCH (22:25)
[2019-07-17] MEDS: CARVEDILOL 3.125 MG TABLET (FP) PO SCH (22:25)
[2019-07-18] MEDS: hydrALAZINE HCL 25 MG TABLET (FP) PO SCH ×3 (06:26→21:41)
[2019-07-18] MEDS: FUROSEMIDE 40 MG/4 ML INJECTABLE VIAL IVPUSH SCH ×2 (06:26→16:48)
[2019-07-18] MEDS: INSULIN SLIDING SCALE (NOVOLOG) 1 VIAL SQ SCH ×4 (06:26→21:44)
[2019-07-18] MEDS ORDERED: ALBUTEROL SO4 0.083% IH SOL 2.5 MG/3 ML VIAL.NEB. NEB ONE ×3 (06:59→20:38)
[2019-07-18 07:30] LABS: BASO % 1.7 % (0-2.0); EOS % 0.1 % (0-4.5); HEMOGLOBIN 7.1 GM/dL (10.7-15.3); LYMPH % 18.8 % (8-40); MCH 24.5 pg (25.7-33.7); MCHC 32.2 g/dl (32.0-36.0); MEAN PLT VOLUME 8.8 fl (7.5-11.1); MONO % 4.9 % (3.8-10.2); NEUT % 74.5 % (42.8-82.8); PLATELET COUNT 352 K/MM3 (134-434); RBC 2.89 M/mm3 (3.60-5.2); RDW 21.1 % (11.6-15.6); RETICULOCYTES 2.42 % (0.5-1.5); WHITE BLOOD COUNT 9.6 K/mm3 (4.0-10.0)
[2019-07-18 08:35] LABS: ARTERIAL BLD GAS O2 SATURATION 93.9 % (95-98); ARTERIAL BLOOD GAS BASE EXCESS 4.1 meq/l (-2-2); ARTERIAL BLOOD GAS PCO2 39.3 mmHg (35-45); ARTERIAL BLOOD GAS PO2 70.9 mmHg (80-100); ARTERIAL BLOOD GAS pH 7.46 (7.35-7.45)
[2019-07-18 08:36] LABS: CALCIUM 8.9 mg/dL (8.5-10.1); CREATININE 1.3 mg/dL (0.55-1.3); POTASSIUM 3.6 mmol/L (3.5-5.1)
[2019-07-18 08:38] LABS: ALLENS TEST POSITIVE
[2019-07-18] MEDS ORDERED: FUROSEMIDE 40 MG/4 ML INJECTABLE VIAL IVPUSH ONE (08:45)
--- NOTE | 2019-07-18 09:52 | PN ---
Progress Note, Physician History of Present Illness: Dyspneic placed on bipap. - Current Medication List Current Medications: Active Medications Amlodipine Besylate (Norvasc -) 5 mg PO DAILY [facility] Last Admin: 07/17/19 10:24 Dose: 5 mg Atorvastatin Calcium (Lipitor -) 80 mg PO [facility] Last Admin: 07/17/19 22:25 Dose: 80 mg Carvedilol (Coreg -) 3.125 mg PO BID [facility] Last Admin: 07/17/19 22:25 Dose: 3.125 mg Donepezil HCl (Aricept -) 10 mg PO [facility] Last Admin: 07/17/19 22:24 Dose: 10 mg Furosemide (Lasix Injection -) 80 mg IVPUSH DAILY@0600 [facility] Furosemide (Lasix Injection -) 40 mg IVPUSH DAILY@1400 [facility] Hydralazine HCl (Apresoline -) 50 mg PO TID [facility] Last Admin: 07/18/19 06:26 Dose: 50 mg Insulin Aspart (Novolog Vial Sliding Scale -) 1 vial SQ [facility]; Protocol Last Admin: 07/18/19 06:26 Dose: Not Given - Objective Vital Signs: Vital Signs Temperature 97.5 F L 07/18/19 06:00 Pulse Rate 89 07/18/19 06:00 Respiratory Rate 22 H 07/18/19 06:00 Blood Pressure 121/60 07/18/19 06:00 O2 Sat by Pulse Oximetry (%) 98 07/17/19 21:00 Constitutional: Yes: No Distress, Calm Neck: Yes: Supple Cardiovascular: Yes: Regular Rate and Rhythm Respiratory: Yes: Regular, Diminished, On BiPap Gastrointestinal: Yes: Soft, Hypoactive Bowel Sounds Edema: No Labs: CBC, BMP 07/18/19 05:50 07/18/19 05:50 INR, PTT INR 1.02 (0.83-1.09) 07/17/19 00:40 - ....Imaging Chest X-ray: Report Reviewed (Congestion) Cat Scan: Report Reviewed (Bilateral pleural effusions with associated atelectasis and pulmonary vascular congestion.) EKG: Report Reviewed (Tele: NSR) Problem List - Problems (1) CKD (chronic kidney disease) Code(s): N18.9 - CHRONIC KIDNEY DISEASE, UNSPECIFIED (2) Respiratory failure with hypoxia Code(s): J96.91 - RESPIRATORY FAILURE, UNSPECIFIED WITH HYPOXIA Qualifiers: Chronicity: acute on chronic Qualified Code(s): J96.21 - Acute and chronic respiratory failure with hypoxia (3) Shortness of breath Code(s): R06.02 - SHORTNESS OF BREATH (4) HTN (hypertension) Code(s): I10 - ESSENTIAL (PRIMARY) HYPERTENSION (5) Hypercholesteremia Code(s): E78.00 - PURE HYPERCHOLESTEROLEMIA, UNSPECIFIED (6) Acute on chronic diastolic heart failure Code(s): I50.33 - ACUTE ON CHRONIC DIASTOLIC (CONGESTIVE) HEART FAILURE Assessment/Plan 1. Shortness of breath due to acute on chronic LV diastolic failure (HFpEF) with subendocardial ischemia 2. COPD 3. OSAS suspect 4. HTN 5. Hypercholesterolemia 6. Cerebrovascular disease 7. History of diverticulitis 8. Organic brain/dementia 9. CKD 10. Fe-deficient anemia likely referable to gastric angioectasias PLAN: 1. Trend tops to document peak 2. Echocardiography to assess LV/RV and valvular function 3. Diuretic (IV Lasix) BID with monitoring diuretic response, renal function and electrolytes 4. Bronchodilator, O2, BIPAP and empiric antibiotic coverage 5. Continue Carvedilol 3.125 mg BID, Norvasc 5 qd, Lipitor 80 qhs and Hydralazine 50 mg TID as tolerated 6. Eliquis held prior to endoscopy, transfuse to maintain Hgb>8.0. Previously patient was given Eliquis 5 mg BID for presumed PAF, but has not been taking it as her daughter states that she was told not to take it from the hospital. Will need to obtain medical records from [facility] for clarification of whether she had PAF. If there is indication for anticoagulation she should be restarted on Eliquis, if not, then will need to assess whether she can be started on ASA, continue PPI 7. BD, O2 as needed, NIPPV support for increase WOB, observe off systemic steroids and ABX, formal OSAS evaluation after discharge 8. Await euvolemia prior to EGD/colonoscopy
--- NOTE | 2019-07-18 10:01 | PN.GI ---
GI Progress Note Subjective: Pt seen/examined at bedside, had reported SOB earlier, now on BIPAP. Denies abdominal pain. Denies melena or hematochezia. No bm yet today. - Objective Vital Signs: Vital Signs Temperature 97.5 F L 07/18/19 06:00 Pulse Rate 89 07/18/19 06:00 Respiratory Rate 22 H 07/18/19 06:00 Blood Pressure 121/60 07/18/19 06:00 O2 Sat by Pulse Oximetry (%) 98 07/17/19 21:00 Constitutional: Calm, Other (on BIPAP) Cardiovascular: Yes: WNL, Regular Rate and Rhythm Respiratory: Yes: On BiPap ...Palpate: Yes: Other (Abd soft, nt, nd) Labs: CBC, BMP 07/18/19 05:50 07/18/19 05:50 INR, PTT INR 1.02 (0.83-1.09) 07/17/19 00:40 Problem List - Problems (1) Anemia Assessment/Plan: 68yo female h/o CHF asthma/COPD, HTN presenting with shortness of breath with worsening anemia with evidence of iron deficiency. No overt bleeding. Angioectasias reported on prior EGD, likely source of chronic blood loss however cannot exclude alternate etiologies. -Monitor Hb and for evidence of bleeding -PPI daily -Clear liquid diet and advance as tolerated -Continue to hold A/C if no cardiac contraindications (would need to be held for 3 days prior to endoscopy if possible) -Pending further cardiology workup/clearance and once optimized from respiratory standpoint would require EGD and colonoscopy (reported poor prep on prior exam) to further evaluate, timing to be determined pending course Code(s): D64.9 - ANEMIA, UNSPECIFIED Qualifiers: Anemia type: iron deficiency
[2019-07-18] MEDS: amLODIPine BESYLATE 5 MG TABLET (FP) PO SCH (10:29)
[2019-07-18] MEDS: CARVEDILOL 3.125 MG TABLET (FP) PO SCH ×2 (10:29→21:41)
--- NOTE | 2019-07-18 11:03 | EKG ---
Test Reason : Blood Pressure : / mmHG Vent. Rate : 081 BPM Atrial Rate : 081 BPM P-R Int : 194 ms QRS Dur : 116 ms QT Int : 416 ms P-R-T Axes : 047 067 068 degrees QTc Int : 483 ms POOR DATA QUALITY, INTERPRETATION MAY BE ADVERSELY AFFECTED NORMAL SINUS RHYTHM CANNOT RULE OUT INFERIOR INFARCT (CITED ON OR BEFORE 09-SEP-2018) ABNORMAL ECG WHEN COMPARED WITH ECG OF 17-JUL-2019 06:50, BORDERLINE CRITERIA FOR ANTERIOR INFARCT ARE NO LONGER PRESENT ST ELEVATION NOW PRESENT IN INFERIOR LEADS Confirmed by REX TSANG MD [id number]) on 07/18/2019 11:03:01 AM Referred By: Confirmed By:REX TSANG MD
--- NOTE | 2019-07-18 11:41 | PN ---
Progress Note, Physician History of Present Illness: PULMONARY AWAKE,ON BIPAP,LESS DYSPNEIC - Current Medication List Current Medications: Active Medications Amlodipine Besylate (Norvasc -) 5 mg PO DAILY [facility] Last Admin: 07/18/19 10:29 Dose: 5 mg Atorvastatin Calcium (Lipitor -) 80 mg PO [facility] Last Admin: 07/17/19 22:25 Dose: 80 mg Carvedilol (Coreg -) 3.125 mg PO BID [facility] Last Admin: 07/18/19 10:29 Dose: 3.125 mg Donepezil HCl (Aricept -) 10 mg PO [facility] Last Admin: 07/17/19 22:24 Dose: 10 mg Furosemide (Lasix Injection -) 80 mg IVPUSH DAILY@0600 [facility] Furosemide (Lasix Injection -) 40 mg IVPUSH DAILY@1400 [facility] Hydralazine HCl (Apresoline -) 50 mg PO TID [facility] Last Admin: 07/18/19 06:26 Dose: 50 mg Insulin Aspart (Novolog Vial Sliding Scale -) 1 vial SQ [facility]; Protocol Last Admin: 07/18/19 06:26 Dose: Not Given - Objective Vital Signs: Vital Signs Temperature 97.5 F L 07/18/19 10:00 Pulse Rate 85 07/18/19 10:00 Respiratory Rate 22 H 07/18/19 10:27 Blood Pressure 136/67 07/18/19 10:00 O2 Sat by Pulse Oximetry (%) 100 07/18/19 10:27 Constitutional: Yes: Calm, Obese Eyes: Yes: WNL HENT: Yes: WNL Neck: Yes: WNL Cardiovascular: Yes: Regular Rate and Rhythm, S1, S2 Respiratory: Yes: Diminished, On BiPap Gastrointestinal: Yes: Normal Bowel Sounds, Soft, Abdomen, Obese Extremities: Yes: WNL Edema: Yes Labs: CBC, BMP 07/18/19 05:50 07/18/19 05:50 INR, PTT INR 1.02 (0.83-1.09) 07/17/19 00:40 Assessment/Plan Problem List - Problems (1) Dyspnea Code(s): R06.00 - DYSPNEA, UNSPECIFIED (2) Decompensated heart failure Code(s): I50.9 - HEART FAILURE, UNSPECIFIED (3) Morbid obesity Code(s): E66.01 - MORBID (SEVERE) OBESITY DUE TO EXCESS CALORIES (4) CKD (chronic kidney disease) Code(s): N18.9 - CHRONIC KIDNEY DISEASE, UNSPECIFIED (5) Respiratory failure with hypoxia Code(s): J96.91 - RESPIRATORY FAILURE, UNSPECIFIED WITH HYPOXIA Qualifiers: Chronicity: acute Qualified Code(s): J96.01 - Acute respiratory failure with hypoxia (6) Shortness of breath Code(s): R06.02 - SHORTNESS OF BREATH (7) Dementia Code(s): F03.90 - UNSPECIFIED DEMENTIA WITHOUT BEHAVIORAL DISTURBANCE (8) HTN (hypertension) Code(s): I10 - ESSENTIAL (PRIMARY) HYPERTENSION 9 SEVERE ANEMIA Assessment/Plan IMP: Do not suspect AE of Obstructive Airways Disease Do not suspect Respiratory Tract infection Probable OSAS Anemia PLAN: Monitor off systemic steroids BD TX PRN O2 as needed NIPPV support for increase WOB Will need formal OSAS evaluation after discharge Lasix BID Daily weight Follow I & O Monitor h+h normal transfusion threshold DR LAYNE
--- NOTE | 2019-07-18 15:08 | PN ---
Teaching Attending Note Name of Resident: Matt Hall ATTENDING PHYSICIAN STATEMENT I saw and evaluated the patient. I reviewed the resident's note and discussed the case with the resident. I agree with the resident's findings and plan as documented with exceptions below. SUBJECTIVE: Patient seen and examined. dyspneic, anxious when seen this AM. generalized body aches, no chest pain. reports feeling better than yesterday, urinating well. OBJECTIVE: Vital Signs Period Temp Pulse Resp BP Sys/Christensen Pulse Ox Last 24 Hr 97.5 F-98.3 F 77-98 13-22 112-158/52-81 98-100 Intake & Output 07/15/19 07/16/19 07/17/19 07/18/19 23:59 23:59 23:59 23:59 Intake Total 20 Output Total 300 Balance -280 Weight 251 lb 3.2 oz 271 lb 3.2 oz General: anxious, tachypneic, use of accessory muscles of respiration Neck: soft, limited exam given body habitus Chest: bibasilar rales, improved air entry Abdomen:soft, obese, NT Extremities: 2+ pedal pitting edema Active Medications Amlodipine Besylate (Norvasc -) 5 mg PO DAILY [facility] Last Admin: 07/18/19 10:29 Dose: 5 mg Atorvastatin Calcium (Lipitor -) 80 mg PO [facility] Last Admin: 07/17/19 22:25 Dose: 80 mg Carvedilol (Coreg -) 3.125 mg PO BID [facility] Last Admin: 07/18/19 10:29 Dose: 3.125 mg Donepezil HCl (Aricept -) 10 mg PO [facility] Last Admin: 07/17/19 22:24 Dose: 10 mg Furosemide (Lasix Injection -) 80 mg IVPUSH DAILY@0600 [facility] Furosemide (Lasix Injection -) 40 mg IVPUSH DAILY@1400 [facility] Hydralazine HCl (Apresoline -) 50 mg PO TID [facility] Last Admin: 07/18/19 14:17 Dose: 50 mg Insulin Aspart (Novolog Vial Sliding Scale -) 1 vial SQ ACHS [facility]; Protocol Last Admin: 07/18/19 12:41 Dose: 4 unit Laboratory Results - last 24 hr 07/17/19 07/17/19 07/17/19 08:02 08:02 17:30 WBC RBC Hgb Hct MCV MCH MCHC RDW Plt Count MPV Absolute Neuts (auto) Neutrophils % Lymphocytes % Monocytes % Eosinophils % Basophils % Nucleated RBC % Platelet Estimate Platelet Comment Retic Count Anticoagulation Therapy Puncture Site ABG pH ABG pCO2 at Pt Temp ABG pO2 at Pt Temp ABG HCO3 ABG O2 Sat (Measured) ABG O2 Content ABG Base Excess Musa Test O2 Delivery Device Oxygen Flow Rate Vent Mode Vent Rate Mechanical Rate Pressure Support Vent Sodium Potassium Chloride Carbon Dioxide Anion Gap BUN Creatinine Est GFR (CKD-EPI)AfAm Est GFR (CKD-EPI)NonAf POC Glucometer 166 Random Glucose Calcium Iron TIBC Iron Saturation Unsaturated IBC Transferrin 322 Ferritin Troponin I PTH Intact 113 H Blood Type Antibody Screen Crossmatch 07/17/19 07/17/19 07/17/19 19:40 20:00 20:00 WBC 10.4 H RBC 3.25 L Hgb 7.6 L Hct 25.0 L MCV 77.1 L MCH 23.5 L MCHC 30.4 L RDW 21.1 H Plt Count 281 D MPV 9.0 Absolute Neuts (auto) 8.5 H Neutrophils % 81.9 Lymphocytes % 10.9 D Monocytes % 6.2 D Eosinophils % 0.0 Basophils % 1.0 Nucleated RBC % 0 Platelet Estimate Adequate Platelet Comment Giant platelets Retic Count Anticoagulation Therapy Puncture Site ABG pH ABG pCO2 at Pt Temp ABG pO2 at Pt Temp ABG HCO3 ABG O2 Sat (Measured) ABG O2 Content ABG Base Excess Musa Test O2 Delivery Device Oxygen Flow Rate Vent Mode Vent Rate Mechanical Rate Pressure Support Vent Sodium Potassium Chloride Carbon Dioxide Anion Gap BUN Creatinine Est GFR (CKD-EPI)AfAm Est GFR (CKD-EPI)NonAf POC Glucometer Random Glucose Calcium Iron TIBC Iron Saturation Unsaturated IBC Transferrin Ferritin Troponin I PTH Intact Blood Type A POSITIVE Antibody Screen Negative Crossmatch See Detail See Detail 07/17/19 07/18/19 07/18/19 22:22 05:50 05:50 WBC 9.6 RBC 2.89 L Hgb 7.1 L Hct 22.0 L MCV 76.0 L MCH 24.5 L MCHC 32.2 RDW 21.1 H Plt Count 352 D MPV 8.8 Absolute Neuts (auto) 7.2 Neutrophils % 74.5 Lymphocytes % 18.8 D Monocytes % 4.9 Eosinophils % 0.1 D Basophils % 1.7 Nucleated RBC % 0 Platelet Estimate Platelet Comment Retic Count 2.42 H D Anticoagulation Therapy Puncture Site ABG pH ABG pCO2 at Pt Temp ABG pO2 at Pt Temp ABG HCO3 ABG O2 Sat (Measured) ABG O2 Content ABG Base Excess Musa Test O2 Delivery Device Oxygen Flow Rate Vent Mode Vent Rate Mechanical Rate Pressure Support Vent Sodium 143 Potassium 3.6 Chloride 108 H Carbon Dioxide 28 Anion Gap 8 BUN 32.0 H Creatinine 1.3 Est GFR (CKD-EPI)AfAm 48.13 Est GFR (CKD-EPI)NonAf 41.53 POC Glucometer 107 Random Glucose 104 Calcium 8.9 Iron 17 L TIBC 368 Iron Saturation 4 L Unsaturated IBC 351 H Transferrin Ferritin 28.9 Troponin I 0.07 H PTH Intact Blood Type Antibody Screen Crossmatch 07/18/19 07/18/19 07/18/19 06:21 08:20 12:37 WBC RBC Hgb Hct MCV MCH MCHC RDW Plt Count MPV Absolute Neuts (auto) Neutrophils % Lymphocytes % Monocytes % Eosinophils % Basophils % Nucleated RBC % Platelet Estimate Platelet Comment Retic Count Anticoagulation Therapy No Result Required. Puncture Site Right radial ABG pH 7.46 H ABG pCO2 at Pt Temp 39.3 ABG pO2 at Pt Temp 70.9 L ABG HCO3 27.7 H ABG O2 Sat (Measured) 93.9 L ABG O2 Content 11.0 ABG Base Excess 4.1 H Musa Test Positive O2 Delivery Device N/c Oxygen Flow Rate 4l Vent Mode No Result Required. Vent Rate No Result Required. Mechanical Rate No Result Required. Pressure Support Vent No Result Required. Sodium Potassium Chloride Carbon Dioxide Anion Gap BUN Creatinine Est GFR (CKD-EPI)AfAm Est GFR (CKD-EPI)NonAf POC Glucometer 101 221 Random Glucose Calcium Iron TIBC Iron Saturation Unsaturated IBC Transferrin Ferritin Troponin I PTH Intact Blood Type Antibody Screen Crossmatch 07/18/19 12:47 WBC RBC Hgb Hct MCV MCH MCHC RDW Plt Count MPV Absolute Neuts (auto) Neutrophils % Lymphocytes % Monocytes % Eosinophils % Basophils % Nucleated RBC % Platelet Estimate Platelet Comment Retic Count Anticoagulation Therapy Puncture Site ABG pH ABG pCO2 at Pt Temp ABG pO2 at Pt Temp ABG HCO3 ABG O2 Sat (Measured) ABG O2 Content ABG Base Excess Musa Test O2 Delivery Device Oxygen Flow Rate Vent Mode Vent Rate Mechanical Rate Pressure Support Vent Sodium Potassium Chloride Carbon Dioxide Anion Gap BUN Creatinine Est GFR (CKD-EPI)AfAm Est GFR (CKD-EPI)NonAf POC Glucometer Random Glucose Calcium Iron TIBC Iron Saturation Unsaturated IBC Transferrin Ferritin Troponin I 0.07 H PTH Intact Blood Type Antibody Screen Crossmatch Microbiology 07/17/19 06:00 Urine - Urine Clean Catch Urine Culture - Final Contaminated: Please Repeat 07/17/19 00:40 Blood - Peripheral Venous Blood Culture - Preliminary NO GROWTH OBTAINED AFTER 24 HOURS, INCUBATION TO CONTINUE FOR 4 DAYS. 07/17/19 00:40 Blood - Peripheral Venous Blood Culture - Preliminary NO GROWTH OBTAINED AFTER 24 HOURS, INCUBATION TO CONTINUE FOR 4 DAYS. ASSESSMENT AND PLAN: 68 yof with PMhx of diastolic HF, HTN, HLD, morbid obesity, asthma/bronchitis, reported recurrent recent admissions with CHF, also anemia s/p recent PRBC admitted with dyspnea. -Acute hypoxic/hypercapneic respiratory failure -Acute on chronic diastolic heart failure exacerbation -Uncontrolled HTN -Elevated troponin, suspect demand mediated type II NSTEMI from above, rather than ACS -MARISOL, suspect cardiorenal. -?H/o PAF -Anemia, ?Acute vs chronic, -Asthma/Bronchitis, do not suspect in exacerbation or infectious process -HTN -HLD -Morbid obesity -Suspected TREY Plan: resume Bipap to decrease work of breathing. Repeat ABG/CXR noted Increase lasix 80-40 mg. Strict I/Os, daily weights. 2D echo noted Cardiology input noted. Continue coreg/hydralazine/amlodipine. Family concerned about recurrent CHF. Counseled on good BP control and outpatient sleep study. Nutrition consult recently on ?Tigre d/you given anemia. Will retrieve more information from PCP/outpatient [facility]. Iron panel, retic count noted Follow up FOBT. Gi input noted, plan for EGD/ colonscopy once volume status improved. Transfuse 1 unit PRBC with additional lasix and close monitoring of volume status. Pulmonary input noted. Monitor off steroids/abx. DVTPPX SCDs for now. Will need PT eval and home oxygen needs assessment prior to dc Discussed with patient and daughters at bedside in detail, all questions answered.
--- NOTE | 2019-07-18 15:13 | PN ---
Physical Exam: SUBJECTIVE: Patient seen and examined. NAEON. Denies SOB, chest pain, palpitations OBJECTIVE: Vital Signs Period Temp Pulse Resp BP Sys/Christensen Pulse Ox Last 24 Hr 97.5 F-98.3 F 77-98 13-22 112-158/52-81 98-100 GENERAL: The patient is awake, alert. NAD HEAD: Normal with no signs of trauma. EYES: sclera anicteric, conjunctival pallor. ENT: Ears normal, nares patent, moist mucous membranes. NECK: Trachea midline, full range of motion, supple. LUNGS: CTA b/l, no accessory muscle use. HEART: Regular rate and rhythm, S1, S2 without murmur, rub or gallop. ABDOMEN: Soft, nontender, nondistended, no guarding, no rebound. EXTREMITIES: 2+ pulses, warm, well-perfused, 1+ edema to BLE NEUROLOGICAL: Normal speech PSYCH: Normal mood, normal affect. SKIN: Warm, dry, normal turgor, no rashes or lesions noted Laboratory Results - last 24 hr 07/17/19 07/17/19 07/17/19 08:02 08:02 17:30 WBC RBC Hgb Hct MCV MCH MCHC RDW Plt Count MPV Absolute Neuts (auto) Neutrophils % Lymphocytes % Monocytes % Eosinophils % Basophils % Nucleated RBC % Platelet Estimate Platelet Comment Retic Count Anticoagulation Therapy Puncture Site ABG pH ABG pCO2 at Pt Temp ABG pO2 at Pt Temp ABG HCO3 ABG O2 Sat (Measured) ABG O2 Content ABG Base Excess Musa Test O2 Delivery Device Oxygen Flow Rate Vent Mode Vent Rate Mechanical Rate Pressure Support Vent Sodium Potassium Chloride Carbon Dioxide Anion Gap BUN Creatinine Est GFR (CKD-EPI)AfAm Est GFR (CKD-EPI)NonAf POC Glucometer 166 Random Glucose Calcium Iron TIBC Iron Saturation Unsaturated IBC Transferrin 322 Ferritin Troponin I PTH Intact 113 H Blood Type Antibody Screen Crossmatch 07/17/19 07/17/19 07/17/19 19:40 20:00 20:00 WBC 10.4 H RBC 3.25 L Hgb 7.6 L Hct 25.0 L MCV 77.1 L MCH 23.5 L MCHC 30.4 L RDW 21.1 H Plt Count 281 D MPV 9.0 Absolute Neuts (auto) 8.5 H Neutrophils % 81.9 Lymphocytes % 10.9 D Monocytes % 6.2 D Eosinophils % 0.0 Basophils % 1.0 Nucleated RBC % 0 Platelet Estimate Adequate Platelet Comment Giant platelets Retic Count Anticoagulation Therapy Puncture Site ABG pH ABG pCO2 at Pt Temp ABG pO2 at Pt Temp ABG HCO3 ABG O2 Sat (Measured) ABG O2 Content ABG Base Excess Musa Test O2 Delivery Device Oxygen Flow Rate Vent Mode Vent Rate Mechanical Rate Pressure Support Vent Sodium Potassium Chloride Carbon Dioxide Anion Gap BUN Creatinine Est GFR (CKD-EPI)AfAm Est GFR (CKD-EPI)NonAf POC Glucometer Random Glucose Calcium Iron TIBC Iron Saturation Unsaturated IBC Transferrin Ferritin Troponin I PTH Intact Blood Type A POSITIVE Antibody Screen Negative Crossmatch See Detail See Detail 07/17/19 07/18/19 07/18/19 22:22 05:50 05:50 WBC 9.6 RBC 2.89 L Hgb 7.1 L Hct 22.0 L MCV 76.0 L MCH 24.5 L MCHC 32.2 RDW 21.1 H Plt Count 352 D MPV 8.8 Absolute Neuts (auto) 7.2 Neutrophils % 74.5 Lymphocytes % 18.8 D Monocytes % 4.9 Eosinophils % 0.1 D Basophils % 1.7 Nucleated RBC % 0 Platelet Estimate Platelet Comment Retic Count 2.42 H D Anticoagulation Therapy Puncture Site ABG pH ABG pCO2 at Pt Temp ABG pO2 at Pt Temp ABG HCO3 ABG O2 Sat (Measured) ABG O2 Content ABG Base Excess Musa Test O2 Delivery Device Oxygen Flow Rate Vent Mode Vent Rate Mechanical Rate Pressure Support Vent Sodium 143 Potassium 3.6 Chloride 108 H Carbon Dioxide 28 Anion Gap 8 BUN 32.0 H Creatinine 1.3 Est GFR (CKD-EPI)AfAm 48.13 Est GFR (CKD-EPI)NonAf 41.53 POC Glucometer 107 Random Glucose 104 Calcium 8.9 Iron 17 L TIBC 368 Iron Saturation 4 L Unsaturated IBC 351 H Transferrin Ferritin 28.9 Troponin I 0.07 H PTH Intact Blood Type Antibody Screen Crossmatch 07/18/19 07/18/19 07/18/19 06:21 08:20 12:37 WBC RBC Hgb Hct MCV MCH MCHC RDW Plt Count MPV Absolute Neuts (auto) Neutrophils % Lymphocytes % Monocytes % Eosinophils % Basophils % Nucleated RBC % Platelet Estimate Platelet Comment Retic Count Anticoagulation Therapy No Result Required. Puncture Site Right radial ABG pH 7.46 H ABG pCO2 at Pt Temp 39.3 ABG pO2 at Pt Temp 70.9 L ABG HCO3 27.7 H ABG O2 Sat (Measured) 93.9 L ABG O2 Content 11.0 ABG Base Excess 4.1 H Musa Test Positive O2 Delivery Device N/c Oxygen Flow Rate 4l Vent Mode No Result Required. Vent Rate No Result Required. Mechanical Rate No Result Required. Pressure Support Vent No Result Required. Sodium Potassium Chloride Carbon Dioxide Anion Gap BUN Creatinine Est GFR (CKD-EPI)AfAm Est GFR (CKD-EPI)NonAf POC Glucometer 101 221 Random Glucose Calcium Iron TIBC Iron Saturation Unsaturated IBC Transferrin Ferritin Troponin I PTH Intact Blood Type Antibody Screen Crossmatch 07/18/19 12:47 WBC RBC Hgb Hct MCV MCH MCHC RDW Plt Count MPV Absolute Neuts (auto) Neutrophils % Lymphocytes % Monocytes % Eosinophils % Basophils % Nucleated RBC % Platelet Estimate Platelet Comment Retic Count Anticoagulation Therapy Puncture Site ABG pH ABG pCO2 at Pt Temp ABG pO2 at Pt Temp ABG HCO3 ABG O2 Sat (Measured) ABG O2 Content ABG Base Excess Musa Test O2 Delivery Device Oxygen Flow Rate Vent Mode Vent Rate Mechanical Rate Pressure Support Vent Sodium Potassium Chloride Carbon Dioxide Anion Gap BUN Creatinine Est GFR (CKD-EPI)AfAm Est GFR (CKD-EPI)NonAf POC Glucometer Random Glucose Calcium Iron TIBC Iron Saturation Unsaturated IBC Transferrin Ferritin Troponin I 0.07 H PTH Intact Blood Type Antibody Screen Crossmatch Active Medications Generic Name Dose Route Start Last Admin Trade Name Freq PRN Reason Stop Dose Admin Amlodipine Besylate 5 mg 07/17/19 10:00 07/18/19 10:29 Norvasc - PO 5 mg DAILY ARA Administration Atorvastatin Calcium 80 mg 07/17/19 22:00 07/17/19 22:25 Lipitor - PO 80 mg HS ARA Administration Carvedilol 3.125 mg 07/17/19 22:00 07/18/19 10:29 Coreg - PO 3.125 mg BID ARA Administration Donepezil HCl 10 mg 07/17/19 22:00 07/17/19 22:24 Aricept - PO 10 mg HS ARA Administration Furosemide 80 mg 07/19/19 06:00 Lasix Injection - IVPUSH DAILY@0600 [facility] Furosemide 40 mg 07/18/19 14:00 Lasix Injection - IVPUSH DAILY@1400 [facility] Hydralazine HCl 50 mg 07/17/19 22:00 07/18/19 14:17 Apresoline - PO 50 mg TID ARA Administration Insulin Aspart 1 vial 07/17/19 07:00 07/18/19 12:41 Novolog Vial Sliding Scale - SQ 4 unit ACHS ARA Administration Protocol ASSESSMENT/PLAN: 68 y.o. F PMH asthma/ COPD, diastolic CHF pEF, HTN, HLD, dementia presenting from home d/t SOB. #Acute HFpEF exacerbation > BNP(07/17/19) ~1959.6 >troponin 0.05 ->0.06 -> 0.07 -> 0.07 >Echo(07/17/19): LV is normal, mild LVH >CTA(07/17/19): neg AAA, neg PE, trace pleural effusion >EKG shows sinus tachy, QTc 530 >EKG(07/18/19): NSR, QTc 483 -Lasix 80mg IV AM, then 40mg IV PM -Solumedrol IV 40mg q6h -- dc'd -Is & Os -Daily weights -On BIPAP -Cardio consulted (Dr. Rosado) #SOB 2/2 to HFrEF >CXR(07/18/19): cardiomegaly, fullness of eduarda, no gross infiltrate >ABG(07/17/19): 7.42/37.1/116/23.6/98.5/-0.2 on BiPAP >ABG(07/18/19): 7.46/39.3/70.9/27.7/93.9/4.1 on 4L NC -Doxycycline & rocephin for abx coverage-- recent sick contact-- dc'd -on BIPAP PRN -Pulm consulted-- Dr. 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 Montgomery -- hold A/C -- PPI -- CLEAR LIQUID DIET ADVANCE TO FULL LIQUID DIET TOLERATED -- SERIAL CBC Q12 -- DIAGNOSTIC EGD LATE IN THE WEEK ONCE SHE IS RISK STRATIFIED BY CARDIOLOGY AND HAS BEEN OFF A/C FOR 72 HOURS -F/u iron studies, ferritin, transferrin, retic count -F/u [facility] records-- pt had anemia 1 mo. ago and had blood transfusion at that time -Eliquis rceently d/c'd-- pt was not on eliquis 2017 --as per Music Worker(Dr Mir Mims) TTE(March 2019) showed thrombus x2 of RA, but then Dave MENA(April 2019) showed no thrombus -- Eliquis dc'd #MARISOL >HbA1c 5.1 >Cr(baseline ~1): 1.5 --> 1.4 --> 1.3 -encourage PO liquid intake #asymptomic UTI >UA(07/17/19): neg nitrite, 1+ LE, WBC 14, Bact 184.5 >UCX(07/17/19): contaminated, will recollect - encourage PO fluids #HTN -home meds: hydralazine, carvedilol, amlodipine #HLD -C/w atorvastatin 80mg daily #Dementia -C/w donepezil #FEN -trend lytes -low fat/sugar diet #PPX DVT: SCDS, SQHep BID Visit type - Emergency Visit Emergency Visit: No - New Patient This patient is new to me today: No - Critical Care Critical Care patient: No ATTENDING PHYSICIAN STATEMENT I saw and evaluated the patient. I reviewed the resident's note and discussed the case with the resident. I agree with the resident's findings and plan as documented. SUBJECTIVE: OBJECTIVE: ASSESSMENT AND PLAN:
[2019-07-18] MEDS: ATORVASTATIN CA 40 MG TABLET (FP) PO SCH (21:41)
[2019-07-18] MEDS: DONEPEZIL HCL 10 MG TABLET (FP) PO SCH (21:41)
[2019-07-18 23:28] LABS: BASO % 1.1 % (0-2.0); EOS % 2.4 % (0-4.5); HEMATOCRIT 25.5 % (32.4-45.2); HEMOGLOBIN 7.9 GM/dL (10.7-15.3); LYMPH % 17.9 % (8-40); MCH 23.7 pg (25.7-33.7); MEAN CELL VOLUME 76.6 fl (80-96); MEAN PLT VOLUME 8.6 fl (7.5-11.1); MONO % 5.5 % (3.8-10.2); NEUT % 73.1 % (42.8-82.8); PLATELET COUNT 332 K/MM3 (134-434); RBC 3.32 M/mm3 (3.60-5.2); WHITE BLOOD COUNT 11.4 K/mm3 (4.0-10.0)
[2019-07-19] MEDS: hydrALAZINE HCL 25 MG TABLET (FP) PO SCH ×3 (05:40→21:40)
[2019-07-19] MEDS: FUROSEMIDE 40 MG/4 ML INJECTABLE VIAL IVPUSH SCH ×2 (05:42→14:19)
[2019-07-19] MEDS: INSULIN SLIDING SCALE (NOVOLOG) 1 VIAL SQ SCH ×4 (06:15→21:42)
[2019-07-19 08:01] LABS: HEMATOCRIT 24.5 % (32.4-45.2); MCH 24.9 pg (25.7-33.7); MCHC 32.8 g/dl (32.0-36.0); MEAN CELL VOLUME 75.8 fl (80-96); MEAN PLT VOLUME 8.7 fl (7.5-11.1); PLATELET COUNT 318 K/MM3 (134-434); RBC 3.23 M/mm3 (3.60-5.2); RDW 19.6 % (11.6-15.6); WHITE BLOOD COUNT 10.1 K/mm3 (4.0-10.0)
[2019-07-19 08:27] LABS: BLOOD UREA NITROGEN 27.1 mg/dL (7-18); CALCIUM 8.7 mg/dL (8.5-10.1); CREATININE 1.2 mg/dL (0.55-1.3); PHOSPHOROUS 3.7 mg/dL (2.5-4.9); POTASSIUM 3.3 mmol/L (3.5-5.1)
[2019-07-19] MEDS ORDERED: POTASSIUM CHLORIDE TABS 20 MEQ TABLET.ER (FP) PO ONE (08:45)
--- NOTE | 2019-07-19 09:18 | PN ---
Progress Note, Physician History of Present Illness: Dyspnea improving weaned onto NC. - Current Medication List Current Medications: Active Medications Amlodipine Besylate (Norvasc -) 5 mg PO DAILY [facility] Last Admin: 07/18/19 10:29 Dose: 5 mg Atorvastatin Calcium (Lipitor -) 80 mg PO HS [facility] Last Admin: 07/18/19 21:41 Dose: 80 mg Carvedilol (Coreg -) 3.125 mg PO BID [facility] Last Admin: 07/18/19 21:41 Dose: 3.125 mg Donepezil HCl (Aricept -) 10 mg PO HS [facility] Last Admin: 07/18/19 21:41 Dose: 10 mg Furosemide (Lasix Injection -) 80 mg IVPUSH DAILY@0600 [facility] Last Admin: 07/19/19 05:42 Dose: 80 mg Furosemide (Lasix Injection -) 40 mg IVPUSH DAILY@1400 [facility] Last Admin: 07/18/19 16:48 Dose: 40 mg Hydralazine HCl (Apresoline -) 50 mg PO TID [facility] Last Admin: 07/19/19 05:40 Dose: 50 mg Potassium Chloride (Potassium Chloride 10 Meq Premix Ivpb -) 10 meq in 100 mls @ 100 mls/hr IVPB Q60M [facility] Stop: 07/19/19 11:44 Insulin Aspart (Novolog Vial Sliding Scale -) 1 vial SQ ACHS [facility]; Protocol Last Admin: 07/19/19 06:15 Dose: Not Given - Objective Vital Signs: Vital Signs Temperature 98.4 F 07/19/19 06:00 Pulse Rate 85 07/19/19 06:00 Respiratory Rate 20 07/19/19 06:00 Blood Pressure 140/66 07/19/19 06:00 O2 Sat by Pulse Oximetry (%) 98 07/19/19 06:00 Constitutional: Yes: No Distress, Calm Neck: Yes: Supple Cardiovascular: Yes: Regular Rate and Rhythm Respiratory: Yes: Regular, Diminished, On Nasal O2 Gastrointestinal: Yes: Normal Bowel Sounds, Soft, Abdomen, Obese Edema: No Labs: CBC, BMP 07/19/19 06:28 07/19/19 06:28 INR, PTT INR 1.02 (0.83-1.09) 07/17/19 00:40 - ....Imaging EKG: Report Reviewed (Tele: NSR) Problem List - Problems (1) CKD (chronic kidney disease) Code(s): N18.9 - CHRONIC KIDNEY DISEASE, UNSPECIFIED (2) Respiratory failure with hypoxia Code(s): J96.91 - RESPIRATORY FAILURE, UNSPECIFIED WITH HYPOXIA Qualifiers: Chronicity: acute on chronic Qualified Code(s): J96.21 - Acute and chronic respiratory failure with hypoxia (3) Shortness of breath Code(s): R06.02 - SHORTNESS OF BREATH (4) HTN (hypertension) Code(s): I10 - ESSENTIAL (PRIMARY) HYPERTENSION (5) Hypercholesteremia Code(s): E78.00 - PURE HYPERCHOLESTEROLEMIA, UNSPECIFIED (6) Acute on chronic diastolic heart failure Code(s): I50.33 - ACUTE ON CHRONIC DIASTOLIC (CONGESTIVE) HEART FAILURE Assessment/Plan 07/17/2019 Echo: Mild cLVH, normal LV and RV size and fxn, mod LAE, mild MR, AR 1. Shortness of breath due to acute on chronic LV diastolic failure (HFpEF) with subendocardial ischemia resolving 2. COPD 3. OSAS suspect 4. HTN 5. Hypercholesterolemia 6. Cerebrovascular disease 7. History of diverticulitis 8. Organic brain/dementia 9. Acute on CKD improving 10. Fe-deficient anemia likely referable to gastric angioectasias PLAN: 1. Trops have plateaued 2. Decrease IV diuresis with monitoring diuretic response, renal function and electrolytes 3. Continue Carvedilol 3.125 mg BID, Norvasc 5 qd, Lipitor 80 qhs and Hydralazine 50 mg TID as tolerated 4. Eliquis held prior to endoscopy, transfuse to maintain Hgb>8.0. D/w resident team, per their conversation with Dr. Rayo he had d/you Eliquis, so will need to assess whether she can be started on ASA for CVD per GI recs, continue PPI 5. BD, O2 as needed, NIPPV support for increase WOB, observe off systemic steroids and ABX, formal OSAS evaluation after discharge 6. Await euvolemia prior to EGD/colonoscopy
[2019-07-19] MEDS ORDERED: POTASSIUM CHLORIDE TABS 20 MEQ TABLET.ER (FP) PO SCH (10:00)
[2019-07-19] MEDS: amLODIPine BESYLATE 5 MG TABLET (FP) PO SCH (11:57)
[2019-07-19] MEDS: CARVEDILOL 3.125 MG TABLET (FP) PO SCH ×2 (11:57→21:41)
[2019-07-19] MEDS: KCL 10 MEQ IVPB 10 MEQ/100 ML INFUS.BAG IVPB SCH ×3 (11:57→18:22)
--- NOTE | 2019-07-19 12:28 | PN ---
Progress Note (short form) - Note Progress Note: Feels better. Less SOB. NAD on NC O2. No acute events overnight. Intake & Output 07/16/19 07/17/19 07/18/19 07/19/19 23:59 23:59 23:59 23:59 Intake Total 780 270 Output Total 700 Balance 80 270 Weight 251 lb 3.2 oz 271 lb 266 lb 12.8 oz Last Vital Signs Temp Pulse Resp BP Pulse Ox 98.4 F 85 20 140/66 98 07/19/19 06:00 07/19/19 06:00 07/19/19 06:00 07/19/19 06:00 07/19/19 06:00 Active Medications Amlodipine Besylate (Norvasc -) 5 mg PO DAILY [facility] Last Admin: 07/19/19 11:57 Dose: 5 mg Atorvastatin Calcium (Lipitor -) 80 mg PO [facility] Last Admin: 07/18/19 21:41 Dose: 80 mg Carvedilol (Coreg -) 3.125 mg PO BID [facility] Last Admin: 07/19/19 11:57 Dose: 3.125 mg Donepezil HCl (Aricept -) 10 mg PO HS [facility] Last Admin: 07/18/19 21:41 Dose: 10 mg Furosemide (Lasix Injection -) 80 mg IVPUSH DAILY@0600 [facility] Last Admin: 07/19/19 05:42 Dose: 80 mg Furosemide (Lasix Injection -) 40 mg IVPUSH DAILY@1400 [facility] Last Admin: 07/18/19 16:48 Dose: 40 mg Hydralazine HCl (Apresoline -) 50 mg PO TID [facility] Last Admin: 07/19/19 05:40 Dose: 50 mg Insulin Aspart (Novolog Vial Sliding Scale -) 1 vial SQ [facility]; Protocol Last Admin: 07/19/19 06:15 Dose: Not Given Constitutional: Yes: NAD, Obese Eyes: Yes: WNL HENT: Yes: WNL Neck: Yes: WNL Cardiovascular: Yes: Regular Rate and Rhythm, S1, S2 Respiratory: Yes: Diminished, no wheeze Gastrointestinal: Yes: Normal Bowel Sounds, Soft, Abdomen, Obese Extremities: Yes: WNL Edema: Yes Labs: Laboratory Results - last 24 hr 07/17/19 07/18/19 07/18/19 08:02 12:37 12:47 WBC RBC Hgb Hct MCV MCH MCHC RDW Plt Count MPV Absolute Neuts (auto) Neutrophils % Lymphocytes % Monocytes % Eosinophils % Basophils % Nucleated RBC % Sodium Potassium Chloride Carbon Dioxide Anion Gap BUN Creatinine Est GFR (CKD-EPI)AfAm Est GFR (CKD-EPI)NonAf POC Glucometer 221 Random Glucose Calcium Phosphorus Magnesium Troponin I 0.07 H PTH Intact 113 H 07/18/19 07/18/19 07/18/19 16:46 19:40 21:43 WBC RBC Hgb Hct MCV MCH MCHC RDW Plt Count MPV Absolute Neuts (auto) Neutrophils % Lymphocytes % Monocytes % Eosinophils % Basophils % Nucleated RBC % Sodium Potassium Chloride Carbon Dioxide Anion Gap BUN Creatinine Est GFR (CKD-EPI)AfAm Est GFR (CKD-EPI)NonAf POC Glucometer 97 116 Random Glucose Calcium Phosphorus Magnesium Troponin I 0.07 H PTH Intact 07/18/19 07/19/19 07/19/19 23:00 05:44 06:28 WBC 11.4 H 10.1 H RBC 3.32 L 3.23 L Hgb 7.9 L 8.0 L Hct 25.5 L D 24.5 L MCV 76.6 L 75.8 L MCH 23.7 L 24.9 L MCHC 31.0 L 32.8 RDW 20.0 H 19.6 H Plt Count 332 318 MPV 8.6 8.7 Absolute Neuts (auto) 8.3 H Neutrophils % 73.1 Lymphocytes % 17.9 Monocytes % 5.5 Eosinophils % 2.4 D Basophils % 1.1 Nucleated RBC % 0 Sodium Potassium Chloride Carbon Dioxide Anion Gap BUN Creatinine Est GFR (CKD-EPI)AfAm Est GFR (CKD-EPI)NonAf POC Glucometer 88 Random Glucose Calcium Phosphorus Magnesium Troponin I PTH Intact 07/19/19 06:28 WBC RBC Hgb Hct MCV MCH MCHC RDW Plt Count MPV Absolute Neuts (auto) Neutrophils % Lymphocytes % Monocytes % Eosinophils % Basophils % Nucleated RBC % Sodium 143 Potassium 3.3 L Chloride 106 Carbon Dioxide 30 Anion Gap 7 L BUN 27.1 H Creatinine 1.2 Est GFR (CKD-EPI)AfAm 53.03 Est GFR (CKD-EPI)NonAf 45.75 POC Glucometer Random Glucose 87 Calcium 8.7 Phosphorus 3.7 Magnesium 2.0 Troponin I PTH Intact Assessment/Plan Problem List - Problems (1) Dyspnea Code(s): R06.00 - DYSPNEA, UNSPECIFIED (2) Decompensated heart failure Code(s): I50.9 - HEART FAILURE, UNSPECIFIED (3) Morbid obesity Code(s): E66.01 - MORBID (SEVERE) OBESITY DUE TO EXCESS CALORIES (4) CKD (chronic kidney disease) Code(s): N18.9 - CHRONIC KIDNEY DISEASE, UNSPECIFIED (5) Respiratory failure with hypoxia Code(s): J96.91 - RESPIRATORY FAILURE, UNSPECIFIED WITH HYPOXIA Qualifiers: Chronicity: acute Qualified Code(s): J96.01 - Acute respiratory failure with hypoxia (6) Shortness of breath Code(s): R06.02 - SHORTNESS OF BREATH (7) Dementia Code(s): F03.90 - UNSPECIFIED DEMENTIA WITHOUT BEHAVIORAL DISTURBANCE (8) HTN (hypertension) Code(s): I10 - ESSENTIAL (PRIMARY) HYPERTENSION 9 SEVERE ANEMIA Assessment/Plan Do not suspect AE of Obstructive Airways Disease Do not suspect Respiratory Tract infection Probable OSAS Anemia PLAN: Monitor off systemic steroids BD TX PRN O2 as needed NIPPV support for increase WOB Will need formal OSAS evaluation after discharge Lasix Daily weight Follow I & O normal transfusion threshold Dr Bhatia Problem List - Problems (1) Dyspnea Code(s): R06.00 - DYSPNEA, UNSPECIFIED (2) Decompensated heart failure Code(s): I50.9 - HEART FAILURE, UNSPECIFIED (3) Morbid obesity Code(s): E66.01 - MORBID (SEVERE) OBESITY DUE TO EXCESS CALORIES (4) CKD (chronic kidney disease) Code(s): N18.9 - CHRONIC KIDNEY DISEASE, UNSPECIFIED (5) Respiratory failure with hypoxia Code(s): J96.91 - RESPIRATORY FAILURE, UNSPECIFIED WITH HYPOXIA Qualifiers: Chronicity: acute on chronic Qualified Code(s): J96.21 - Acute and chronic respiratory failure with hypoxia (6) Shortness of breath Code(s): R06.02 - SHORTNESS OF BREATH (7) Dementia Code(s): F03.90 - UNSPECIFIED DEMENTIA WITHOUT BEHAVIORAL DISTURBANCE (8) HTN (hypertension) Code(s): I10 - ESSENTIAL (PRIMARY) HYPERTENSION
--- NOTE | 2019-07-19 15:26 | PN ---
Teaching Attending Note Name of Resident: Matt Hall ATTENDING PHYSICIAN STATEMENT I saw and evaluated the patient. I reviewed the resident's note and discussed the case with the resident. I agree with the resident's findings and plan as documented with exceptions below. SUBJECTIVE: Patient seen and examined. breathing improved, no new complaints. OBJECTIVE: Vital Signs Period Temp Pulse Resp BP Sys/Christensen Pulse Ox Last 24 Hr 97.5 F-98.7 F 79-98 18-20 111-159/53-81 97-99 Intake & Output 07/16/19 07/17/19 07/18/19 07/19/19 23:59 23:59 23:59 23:59 Intake Total 780 270 Output Total 700 Balance 80 270 Weight 251 lb 3.2 oz 271 lb 266 lb 12.8 oz General: lying in bed on nasal canula, breathing better Chest: improved exam, scattered rhonchi Abdomen: soft obese, NT Extremities; improved pedal edema Home Medications Medication Instructions Recorded Aspirin 81 mg PO DAILY 02/21/13 Allopurinol [Zyloprim -] 100 mg PO DAILY 09/10/18 Amlodipine Besylate [Norvasc -] 10 mg PO DAILY 09/10/18 Donepezil HCl 10 mg PO HS 09/10/18 Apixaban [Eliquis] 5 mg PO BID 07/17/19 Calcium Carbonate [Calcium] 600 mg PO DAILY 07/17/19 Carvedilol [Coreg -] 3.125 mg PO BID 07/17/19 Ergocalciferol (Vitamin D2) 25 mcg PO DAILY 07/17/19 [Vitamin D2] Fluticasone Propion/Salmeterol 1 each IH BID 07/17/19 [Wixela 500-50 Inhub] Hydralazine HCl 50 mg PO TID 07/17/19 Pantoprazole Sodium 40 mg PO DAILY 07/17/19 Potassium 10 meq PO BID 07/17/19 Torsemide 20 mg PO BID 07/17/19 Atorvastatin Calcium 40 mg PO HS 07/18/19 Active Medications Amlodipine Besylate (Norvasc -) 5 mg PO DAILY [facility] Last Admin: 07/19/19 11:57 Dose: 5 mg Atorvastatin Calcium (Lipitor -) 80 mg PO HS [facility] Last Admin: 07/18/19 21:41 Dose: 80 mg Carvedilol (Coreg -) 3.125 mg PO BID [facility] Last Admin: 07/19/19 11:57 Dose: 3.125 mg Donepezil HCl (Aricept -) 10 mg PO HS [facility] Last Admin: 07/18/19 21:41 Dose: 10 mg Furosemide (Lasix Injection -) 80 mg IVPUSH DAILY@0600 [facility] Last Admin: 07/19/19 05:42 Dose: 80 mg Furosemide (Lasix Injection -) 40 mg IVPUSH DAILY@1400 [facility] Last Admin: 07/19/19 14:19 Dose: 40 mg Hydralazine HCl (Apresoline -) 50 mg PO TID [facility] Last Admin: 07/19/19 14:19 Dose: 50 mg Insulin Aspart (Novolog Vial Sliding Scale -) 1 vial SQ ACHS [facility]; Protocol Last Admin: 07/19/19 14:19 Dose: Not Given Laboratory Results - last 24 hr 07/18/19 07/18/19 07/18/19 16:46 19:40 21:43 WBC RBC Hgb Hct MCV MCH MCHC RDW Plt Count MPV Absolute Neuts (auto) Neutrophils % Lymphocytes % Monocytes % Eosinophils % Basophils % Nucleated RBC % Sodium Potassium Chloride Carbon Dioxide Anion Gap BUN Creatinine Est GFR (CKD-EPI)AfAm Est GFR (CKD-EPI)NonAf POC Glucometer 97 116 Random Glucose Calcium Phosphorus Magnesium Troponin I 0.07 H 07/18/19 07/19/19 07/19/19 23:00 05:44 06:28 WBC 11.4 H 10.1 H RBC 3.32 L 3.23 L Hgb 7.9 L 8.0 L Hct 25.5 L D 24.5 L MCV 76.6 L 75.8 L MCH 23.7 L 24.9 L MCHC 31.0 L 32.8 RDW 20.0 H 19.6 H Plt Count 332 318 MPV 8.6 8.7 Absolute Neuts (auto) 8.3 H Neutrophils % 73.1 Lymphocytes % 17.9 Monocytes % 5.5 Eosinophils % 2.4 D Basophils % 1.1 Nucleated RBC % 0 Sodium Potassium Chloride Carbon Dioxide Anion Gap BUN Creatinine Est GFR (CKD-EPI)AfAm Est GFR (CKD-EPI)NonAf POC Glucometer 88 Random Glucose Calcium Phosphorus Magnesium Troponin I 07/19/19 06:28 WBC RBC Hgb Hct MCV MCH MCHC RDW Plt Count MPV Absolute Neuts (auto) Neutrophils % Lymphocytes % Monocytes % Eosinophils % Basophils % Nucleated RBC % Sodium 143 Potassium 3.3 L Chloride 106 Carbon Dioxide 30 Anion Gap 7 L BUN 27.1 H Creatinine 1.2 Est GFR (CKD-EPI)AfAm 53.03 Est GFR (CKD-EPI)NonAf 45.75 POC Glucometer Random Glucose 87 Calcium 8.7 Phosphorus 3.7 Magnesium 2.0 Troponin I ASSESSMENT AND PLAN: 68 yof with PMhx of diastolic HF, HTN, HLD, morbid obesity, asthma/bronchitis, reported recurrent recent admissions with CHF, also anemia s/p recent PRBC admitted with dyspnea. -Acute hypoxic/hypercapneic respiratory failure -Acute on chronic diastolic heart failure exacerbation -Uncontrolled HTN -Elevated troponin, suspect demand mediated type II NSTEMI from above, rather than ACS -MARISOL, suspect cardiorenal. -?H/o PAF -Anemia, ?Acute vs chronic, -Asthma/Bronchitis, do not suspect in exacerbation or infectious process -HTN -HLD -Morbid obesity -Suspected TREY Plan: Improved, Lasix current dose as tolerated NIPPV prn Cardiology/pulmonary input noted. Continue coreg/hydralazine/amlodipine. Family concerned about recurrent CHF. Counseled on good BP control and outpatient sleep study. Nutrition consult recently on ?Eliquis, d/you given anemia, patient denies taking it, will defer to outpatient cardiology. Follow up with Gi for possible EGD/colonoscopy H/h stable post PBRBC, no gross evidence of bleed or hemodynamic instability. DVTPPX SCDs for now. PT eval, OOB. Home oxygen needs prior to dc. Discussed with patient in detail, all questions answered.
--- NOTE | 2019-07-19 16:01 | PN ---
Physical Exam: SUBJECTIVE: Patient seen and examined O/N: multiple episodes of desaturations in 80s. Had a few hours of BiPAP before sleep On 3L NC, denies SOB OBJECTIVE: Vital Signs Period Temp Pulse Resp BP Sys/Christensen Pulse Ox Last 24 Hr 97.5 F-98.7 F 79-98 18-20 111-159/53-81 97-99 GENERAL: The patient is awake, alert. NAD HEAD: Normal with no signs of trauma. EYES: sclera anicteric, conjunctival pallor. ENT: Ears normal, nares patent, moist mucous membranes. NECK: Trachea midline, full range of motion, supple. LUNGS: CTA b/l, no accessory muscle use. 3L NC HEART: Regular rate and rhythm, S1, S2 without murmur, rub or gallop. ABDOMEN: Soft, nontender, nondistended, no guarding, no rebound. EXTREMITIES: 2+ pulses, warm, well-perfused, 1+ edema to BLE NEUROLOGICAL: Normal speech PSYCH: Normal mood, normal affect. SKIN: Warm, dry, normal turgor, no rashes or lesions noted Laboratory Results - last 24 hr 07/18/19 07/18/19 07/18/19 16:46 19:40 21:43 WBC RBC Hgb Hct MCV MCH MCHC RDW Plt Count MPV Absolute Neuts (auto) Neutrophils % Lymphocytes % Monocytes % Eosinophils % Basophils % Nucleated RBC % Sodium Potassium Chloride Carbon Dioxide Anion Gap BUN Creatinine Est GFR (CKD-EPI)AfAm Est GFR (CKD-EPI)NonAf POC Glucometer 97 116 Random Glucose Calcium Phosphorus Magnesium Troponin I 0.07 H 07/18/19 07/19/19 07/19/19 23:00 05:44 06:28 WBC 11.4 H 10.1 H RBC 3.32 L 3.23 L Hgb 7.9 L 8.0 L Hct 25.5 L D 24.5 L MCV 76.6 L 75.8 L MCH 23.7 L 24.9 L MCHC 31.0 L 32.8 RDW 20.0 H 19.6 H Plt Count 332 318 MPV 8.6 8.7 Absolute Neuts (auto) 8.3 H Neutrophils % 73.1 Lymphocytes % 17.9 Monocytes % 5.5 Eosinophils % 2.4 D Basophils % 1.1 Nucleated RBC % 0 Sodium Potassium Chloride Carbon Dioxide Anion Gap BUN Creatinine Est GFR (CKD-EPI)AfAm Est GFR (CKD-EPI)NonAf POC Glucometer 88 Random Glucose Calcium Phosphorus Magnesium Troponin I 07/19/19 06:28 WBC RBC Hgb Hct MCV MCH MCHC RDW Plt Count MPV Absolute Neuts (auto) Neutrophils % Lymphocytes % Monocytes % Eosinophils % Basophils % Nucleated RBC % Sodium 143 Potassium 3.3 L Chloride 106 Carbon Dioxide 30 Anion Gap 7 L BUN 27.1 H Creatinine 1.2 Est GFR (CKD-EPI)AfAm 53.03 Est GFR (CKD-EPI)NonAf 45.75 POC Glucometer Random Glucose 87 Calcium 8.7 Phosphorus 3.7 Magnesium 2.0 Troponin I Active Medications Generic Name Dose Route Start Last Admin Trade Name Freq PRN Reason Stop Dose Admin Amlodipine Besylate 5 mg 07/17/19 10:00 07/19/19 11:57 Norvasc - PO 5 mg DAILY ARA Administration Atorvastatin Calcium 80 mg 07/17/19 22:00 07/18/19 21:41 Lipitor - PO 80 mg HS ARA Administration Carvedilol 3.125 mg 07/17/19 22:00 07/19/19 11:57 Coreg - PO 3.125 mg BID ARA Administration Donepezil HCl 10 mg 07/17/19 22:00 07/18/19 21:41 Aricept - PO 10 mg HS ARA Administration Furosemide 80 mg 07/19/19 06:00 07/19/19 05:42 Lasix Injection - IVPUSH 80 mg DAILY@0600 ARA Administration Furosemide 40 mg 07/18/19 14:00 07/19/19 14:19 Lasix Injection - IVPUSH 40 mg DAILY@1400 ARA Administration Hydralazine HCl 50 mg 07/17/19 22:00 07/19/19 14:19 Apresoline - PO 50 mg TID ARA Administration Insulin Aspart 1 vial 07/17/19 07:00 07/19/19 14:19 Novolog Vial Sliding Scale - SQ Not Given ACHS [facility] Protocol Vital Signs Temp 98.4 F 07/19/19 14:00 Pulse 83 07/19/19 14:00 Resp 20 07/19/19 14:00 BP 134/69 07/19/19 14:00 Pulse Ox 97 07/19/19 09:00 Intake & Output 07/18/19 07/19/19 07/19/19 23:59 11:59 23:59 Intake Total 760 270 Output Total 400 Balance 360 270 Weight 122.924 kg 121.018 kg Intake: IV 60 20 Saline Lock 60 20 IVPB 50 Oral 300 250 Packed Cells 350 Output: Urine 400 Void 400 Other: Voiding Method Toilet Diaper External Catheter # Unmeasured Voids Void 2 Bowel Movement Yes No # Bowel Movements 1 Height 5 ft 7 in Body Mass Index (BMI) 42.4 Weight Measurement Method Standing Scale ASSESSMENT/PLAN: 68 y.o. F PMH asthma/ COPD, diastolic CHF pEF, HTN, HLD, dementia presenting from home d/t SOB. #Acute HFpEF exacerbation > BNP(07/17/19) ~1959.6 >troponin 0.05 ->0.06 -> 0.07 -> 0.07 >Echo(07/17/19): LV is normal, mild LVH >CTA(07/17/19): neg AAA, neg PE, trace pleural effusion >EKG shows sinus tachy, QTc 530 >EKG(07/18/19): NSR, QTc 483 -Lasix 80mg IV AM, then 40mg IV PM -Solumedrol IV 40mg q6h -- dc'd -Is & Os -Daily weights -Cardio consulted (Dr. Rosado) #SOB 2/2 to HFrEF >CXR(07/18/19): cardiomegaly, fullness of eduarda, no gross infiltrate >ABG(07/17/19): 7.42/37.1/116/23.6/98.5/-0.2 on BiPAP >ABG(07/18/19): 7.46/39.3/70.9/27.7/93.9/4.1 on 4L NC -Doxycycline & rocephin for abx coverage-- recent sick contact-- dc'd -BIPAP PRN and QHS -Pulm consulted-- Dr. 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 Montgomery -- hold A/C -- PPI -- CLEAR LIQUID DIET ADVANCE TO FULL LIQUID DIET TOLERATED -- SERIAL CBC Q12 -- DIAGNOSTIC EGD LATE IN THE WEEK ONCE SHE IS RISK STRATIFIED BY CARDIOLOGY AND HAS BEEN OFF A/C FOR 72 HOURS -Eliquis rceently d/c'd-- pt was not on eliquis 2017 --as per Draw In Hand(Dr Mir Mims) TTE(March 2019) showed thrombus x2 of RA, but then Dave MENA(April 2019) showed no thrombus -- Eliquis dc'd #CPOD -cw home fluticasone/salmeterol #MARISOL >HbA1c 5.1 >Cr(baseline ~1): 1.5 --> 1.4 --> 1.3 -->1.2 -encourage PO liquid intake #asymptomic UTI -- will not treat >UA(07/17/19): neg nitrite, 1+ LE, WBC 14, Bact 184.5 >UCX(07/17/19): contaminated -- won't treat as pt is asymptomatic - encourage PO fluids #HTN -home meds: hydralazine, carvedilol, amlodipine #HLD -C/w atorvastatin 80mg daily #Dementia -C/w donepezil #FEN -trend lytes -low fat/sugar diet #PPX DVT: SCDS, SQHep BID Visit type - Emergency Visit Emergency Visit: No - New Patient This patient is new to me today: No - Critical Care Critical Care patient: No ATTENDING PHYSICIAN STATEMENT I saw and evaluated the patient. I reviewed the resident's note and discussed the case with the resident. I agree with the resident's findings and plan as documented. SUBJECTIVE: OBJECTIVE: ASSESSMENT AND PLAN:
--- NOTE | 2019-07-19 18:35 | PN.GI ---
GI Progress Note Subjective: No acute events She states that breathing is "getting there" No overt bleeding reported - Objective Vital Signs: Vital Signs Temperature 98.4 F 07/19/19 14:00 Pulse Rate 83 07/19/19 14:00 Respiratory Rate 20 07/19/19 14:00 Blood Pressure 134/69 07/19/19 14:00 O2 Sat by Pulse Oximetry (%) 97 07/19/19 09:00 Constitutional: Calm Eyes: No: Sclera Icterus Cardiovascular: Yes: Regular Rate and Rhythm Respiratory: Yes: Diminished (at bases bilaterally) Gastrointestinal Inspection: No: Distention ...Auscultate: Yes: Normoactive Bowel Sounds ...Palpate: No: Splenomegaly, Tenderness Neurological: Yes: Alert Labs: CBC, BMP 07/19/19 06:28 07/19/19 06:28 INR, PTT INR 1.02 (0.83-1.09) 07/17/19 00:40 Problem List - Problems (1) Anemia Assessment/Plan: Clinically improving When cleared from cardiopulmonary standpoint, for repeat EGD given history of upper GI angiodysplasias along with colonoscopy, given incomplete study due to poor prep described on attempted colonoscopy at [facility]. Added protonix 40mg once daily to med regimen Monitor H/H and for active bleeding Code(s): D64.9 - ANEMIA, UNSPECIFIED Qualifiers: Anemia type: iron deficiency
[2019-07-19] MEDS: PANTOPRAZOLE 40 MG TABLET (FP) PO SCH (20:13)
[2019-07-19] MEDS: ATORVASTATIN CA 40 MG TABLET (FP) PO SCH (21:40)
[2019-07-19] MEDS: DONEPEZIL HCL 10 MG TABLET (FP) PO SCH (21:40)
[2019-07-19] MEDS: BUDESONIDE/FORMETEROL FUMARATE 160/4.5 mcg INHALER IH SCH (21:41)
[2019-07-19] MEDS: HEPARIN NA (PORCINE) 5,000 UNITS/ML 1ML VIAL SQ SCH (21:42)
[2019-07-20] MEDS: hydrALAZINE HCL 25 MG TABLET (FP) PO SCH ×3 (05:50→21:25)
[2019-07-20] MEDS: FUROSEMIDE 40 MG/4 ML INJECTABLE VIAL IVPUSH SCH (05:50)
[2019-07-20] MEDS: INSULIN SLIDING SCALE (NOVOLOG) 1 VIAL SQ SCH ×4 (06:15→21:26)
[2019-07-20] MEDS ORDERED: INSULIN (NOVOLOG) ASPART 100 UNITS/ML 10ML VIAL ONE (07:44)
[2019-07-20 08:05] LABS: HEMOGLOBIN 8.7 GM/dL (10.7-15.3); MCH 24.3 pg (25.7-33.7); MCHC 32.2 g/dl (32.0-36.0); MEAN CELL VOLUME 75.6 fl (80-96); MEAN PLT VOLUME 8.8 fl (7.5-11.1); PLATELET COUNT 342 K/MM3 (134-434); RBC 3.57 M/mm3 (3.60-5.2); RDW 19.8 % (11.6-15.6); WHITE BLOOD COUNT 9.3 K/mm3 (4.0-10.0)
[2019-07-20 08:24] LABS: BLOOD UREA NITROGEN 24.8 mg/dL (7-18); CREATININE 1.3 mg/dL (0.55-1.3); MAGNESIUM 1.8 mg/dL (1.8-2.4); POTASSIUM 3.6 mmol/L (3.5-5.1)
[2019-07-20] MEDS: BUDESONIDE/FORMETEROL FUMARATE 160/4.5 mcg INHALER IH SCH ×2 (09:14→21:30)
[2019-07-20] MEDS: PANTOPRAZOLE 40 MG TABLET (FP) PO SCH (09:14)
[2019-07-20] MEDS: HEPARIN NA (PORCINE) 5,000 UNITS/ML 1ML VIAL SQ SCH ×2 (09:14→21:25)
[2019-07-20] MEDS: amLODIPine BESYLATE 5 MG TABLET (FP) PO SCH (09:14)
[2019-07-20] MEDS: CARVEDILOL 3.125 MG TABLET (FP) PO SCH ×2 (09:14→21:25)
--- NOTE | 2019-07-20 10:54 | PN ---
Progress Note, Physician History of Present Illness: Dyspnea improving weaned onto NC, Bipap nightly - Current Medication List Current Medications: Active Medications Amlodipine Besylate (Norvasc -) 5 mg PO DAILY [facility] Last Admin: 07/20/19 09:14 Dose: 5 mg Atorvastatin Calcium (Lipitor -) 80 mg PO [facility] Last Admin: 07/19/19 21:40 Dose: 80 mg Budesonide/Formoterol Fumarate (Symbicort 160/4.5mcg -) 2 puff IH BID [facility] Last Admin: 07/20/19 09:14 Dose: 2 puff Carvedilol (Coreg -) 3.125 mg PO BID [facility] Last Admin: 07/20/19 09:14 Dose: 3.125 mg Donepezil HCl (Aricept -) 10 mg PO HS [facility] Last Admin: 07/19/19 21:40 Dose: 10 mg Furosemide (Lasix Injection -) 80 mg IVPUSH DAILY@0600 [facility] Last Admin: 07/20/19 05:50 Dose: 80 mg Furosemide (Lasix Injection -) 40 mg IVPUSH DAILY@1400 [facility] Stop: 07/20/19 22:00 Last Admin: 07/19/19 14:19 Dose: 40 mg Heparin Sodium (Porcine) (Heparin -) 5,000 unit SQ BID [facility] Last Admin: 07/20/19 09:14 Dose: 5,000 unit Hydralazine HCl (Apresoline -) 50 mg PO TID [facility] Last Admin: 07/20/19 05:50 Dose: 50 mg Insulin Aspart (Novolog Vial Sliding Scale -) 1 vial SQ ACHS [facility]; Protocol Last Admin: 07/20/19 10:40 Dose: Not Given Pantoprazole Sodium (Protonix -) 40 mg PO DAILY [facility] Last Admin: 07/20/19 09:14 Dose: 40 mg - Objective Vital Signs: Vital Signs Temperature 98.2 F 07/20/19 05:46 Pulse Rate 81 07/20/19 05:46 Respiratory Rate 20 07/20/19 05:46 Blood Pressure 134/64 07/20/19 05:46 O2 Sat by Pulse Oximetry (%) 99 07/19/19 21:00 Constitutional: Yes: No Distress, Calm Neck: Yes: Supple Cardiovascular: Yes: Regular Rate and Rhythm Respiratory: Yes: Regular, Diminished Gastrointestinal: Yes: Normal Bowel Sounds, Soft, Abdomen, Obese Edema: No Labs: CBC, BMP 07/20/19 06:47 07/20/19 06:47 INR, PTT INR 1.02 (0.83-1.09) 07/17/19 00:40 - ....Imaging EKG: Report Reviewed (Tele: NSR) Problem List - Problems (1) CKD (chronic kidney disease) Code(s): N18.9 - CHRONIC KIDNEY DISEASE, UNSPECIFIED (2) Respiratory failure with hypoxia Code(s): J96.91 - RESPIRATORY FAILURE, UNSPECIFIED WITH HYPOXIA Qualifiers: Chronicity: acute on chronic Qualified Code(s): J96.21 - Acute and chronic respiratory failure with hypoxia (3) Shortness of breath Code(s): R06.02 - SHORTNESS OF BREATH (4) HTN (hypertension) Code(s): I10 - ESSENTIAL (PRIMARY) HYPERTENSION (5) Hypercholesteremia Code(s): E78.00 - PURE HYPERCHOLESTEROLEMIA, UNSPECIFIED (6) Acute on chronic diastolic heart failure Code(s): I50.33 - ACUTE ON CHRONIC DIASTOLIC (CONGESTIVE) HEART FAILURE Assessment/Plan 07/17/2019 Echo: Mild cLVH, normal LV and RV size and fxn, mod LAE, mild MR, AR 1. Shortness of breath due to acute on chronic LV diastolic failure (HFpEF) with subendocardial ischemia resolving 2. COPD 3. OSAS suspect 4. HTN 5. Hypercholesterolemia 6. Cerebrovascular disease 7. History of diverticulitis 8. Organic brain/dementia 9. Acute on CKD improving 10. Fe-deficient anemia likely referable to gastric angioectasias PLAN: 1. Trops have plateaued 2. Decrease IV diuresis with monitoring diuretic response, renal function and electrolytes 3. Continue Carvedilol 3.125 mg BID, Norvasc 5 qd, Lipitor 80 qhs and Hydralazine 50 mg TID as tolerated 4. Eliquis held prior to endoscopy, transfuse to maintain Hgb>8.0. D/w resident team, per their conversation with Dr. Rayo he had d/you Eliquis, so will need to assess whether she can be started on ASA for CVD per GI recs, continue PPI 5. BD, O2 as needed, NIPPV support for increase WOB, observe off systemic steroids and ABX, formal OSAS evaluation after discharge 6. Plan for EGD/colonoscopy Monday 07/23, may proceed once euvolemia achieved 7. OOB to chair, PT as tolerated
--- NOTE | 2019-07-20 11:25 | PN ---
Progress Note, Physician History of Present Illness: PULMONARY ALERT,COMFORTABLE ON NASAL O2,-SOB - Current Medication List Current Medications: Active Medications Amlodipine Besylate (Norvasc -) 5 mg PO DAILY [facility] Last Admin: 07/20/19 09:14 Dose: 5 mg Atorvastatin Calcium (Lipitor -) 80 mg PO HS [facility] Last Admin: 07/19/19 21:40 Dose: 80 mg Budesonide/Formoterol Fumarate (Symbicort 160/4.5mcg -) 2 puff IH BID [facility] Last Admin: 07/20/19 09:14 Dose: 2 puff Carvedilol (Coreg -) 3.125 mg PO BID [facility] Last Admin: 07/20/19 09:14 Dose: 3.125 mg Donepezil HCl (Aricept -) 10 mg PO HS [facility] Last Admin: 07/19/19 21:40 Dose: 10 mg Furosemide (Lasix Injection -) 80 mg IVPUSH DAILY@0600 [facility] Last Admin: 07/20/19 05:50 Dose: 80 mg Furosemide (Lasix Injection -) 40 mg IVPUSH DAILY@1400 [facility] Stop: 07/20/19 22:00 Last Admin: 07/19/19 14:19 Dose: 40 mg Heparin Sodium (Porcine) (Heparin -) 5,000 unit SQ BID [facility] Last Admin: 07/20/19 09:14 Dose: 5,000 unit Hydralazine HCl (Apresoline -) 50 mg PO TID [facility] Last Admin: 07/20/19 05:50 Dose: 50 mg Insulin Aspart (Novolog Vial Sliding Scale -) 1 vial SQ ACHS [facility]; Protocol Last Admin: 07/20/19 10:40 Dose: Not Given Pantoprazole Sodium (Protonix -) 40 mg PO DAILY [facility] Last Admin: 07/20/19 09:14 Dose: 40 mg - Objective Vital Signs: Vital Signs Temperature 97.7 F 07/20/19 11:12 Pulse Rate 77 07/20/19 11:12 Respiratory Rate 20 07/20/19 11:12 Blood Pressure 141/63 07/20/19 11:12 O2 Sat by Pulse Oximetry (%) 98 07/20/19 11:15 Constitutional: Yes: Calm, Obese Eyes: Yes: WNL HENT: Yes: WNL Neck: Yes: WNL Cardiovascular: Yes: Regular Rate and Rhythm, S1, S2 Respiratory: Yes: Diminished Gastrointestinal: Yes: Normal Bowel Sounds, Soft, Abdomen, Obese Extremities: Yes: WNL Edema: No Labs: CBC, BMP 07/20/19 06:47 07/20/19 06:47 INR, PTT INR 1.02 (0.83-1.09) 07/17/19 00:40 - ....Imaging Chest X-ray: Report Reviewed, Image Reviewed Assessment/Plan Problem List - Problems (1) Dyspnea Code(s): R06.00 - DYSPNEA, UNSPECIFIED (2) Decompensated heart failure Code(s): I50.9 - HEART FAILURE, UNSPECIFIED (3) Morbid obesity Code(s): E66.01 - MORBID (SEVERE) OBESITY DUE TO EXCESS CALORIES (4) CKD (chronic kidney disease) Code(s): N18.9 - CHRONIC KIDNEY DISEASE, UNSPECIFIED (5) Respiratory failure with hypoxia Code(s): J96.91 - RESPIRATORY FAILURE, UNSPECIFIED WITH HYPOXIA Qualifiers: Chronicity: acute Qualified Code(s): J96.01 - Acute respiratory failure with hypoxia (6) Shortness of breath Code(s): R06.02 - SHORTNESS OF BREATH (7) Dementia Code(s): F03.90 - UNSPECIFIED DEMENTIA WITHOUT BEHAVIORAL DISTURBANCE (8) HTN (hypertension) Code(s): I10 - ESSENTIAL (PRIMARY) HYPERTENSION 9 SEVERE ANEMIA Assessment/Plan IMP: Do not suspect AE of Obstructive Airways Disease Do not suspect Respiratory Tract infection Probable OSAS Anemia Acute on chronic chf PLAN: BD TX PRN O2 as needed NIPPV support for increase WOB Will need formal OSAS evaluation after discharge Lasix BID Daily weight Follow I & O Monitor h+h normal transfusion threshold GI w/u in progress DR LAYNE
--- NOTE | 2019-07-20 12:16 | PN.GI ---
GI Progress Note Subjective: No overt bleeding Respiratory status improved No abdominal pain CPAP at night - Objective Vital Signs: Vital Signs Temperature 97.7 F 07/20/19 11:12 Pulse Rate 77 07/20/19 11:12 Respiratory Rate 20 07/20/19 11:12 Blood Pressure 141/63 07/20/19 11:12 O2 Sat by Pulse Oximetry (%) 98 07/20/19 11:15 Constitutional: Calm Eyes: No: Sclera Icterus Cardiovascular: Yes: Regular Rate and Rhythm Respiratory: Yes: Diminished Labs: CBC, BMP 07/20/19 06:47 07/20/19 06:47 INR, PTT INR 1.02 (0.83-1.09) 07/17/19 00:40 Problem List - Problems (1) Anemia Assessment/Plan: No overt bleeding When cleared from a cardiopulmonary standpoint, plan for EGD/Colonoscopy, tentatively monday 07/23. Discussed plan with Ms. Nagy. Discussed potential risks of the procedure like but not limited to bleeding, perforation requiring surgery to repair, infection, sedation medication effects all of which could be potentially life threatening. She has agreed to the procedures. Consent obtained. Code(s): D64.9 - ANEMIA, UNSPECIFIED Qualifiers: Anemia type: iron deficiency
--- NOTE | 2019-07-20 12:34 | PN ---
Teaching Attending Note Name of Resident: Matt Hall ATTENDING PHYSICIAN STATEMENT I saw and evaluated the patient. I reviewed the resident's note and discussed the case with the resident. I agree with the resident's findings and plan as documented with exceptions below. SUBJECTIVE: Patient seen and examined. breathing improved. No new complaints. OBJECTIVE: Vital Signs Period Temp Pulse Resp BP Sys/Christensen Pulse Ox Last 24 Hr 97.7 F-98.4 F 77-87 20-20 134-150/63-84 97-99 Intake & Output 07/17/19 07/18/19 07/19/19 07/20/19 23:59 23:59 23:59 23:59 Intake Total 780 630 Output Total 700 600 400 Balance 80 30 -400 Weight 251 lb 3.2 oz 271 lb 266 lb 12.8 oz General: sitting in bed, no tachypnea or use of accessory muslces Chest: improved exam and air entry, no rales or wheezing appreciated Abdomen:soft, obese Extremities: trace to 1+ pedal pitting edema Home Medications Medication Instructions Recorded Aspirin 81 mg PO DAILY 02/21/13 Allopurinol [Zyloprim -] 100 mg PO DAILY 09/10/18 Amlodipine Besylate [Norvasc -] 10 mg PO DAILY 09/10/18 Donepezil HCl 10 mg PO HS 09/10/18 Apixaban [Eliquis] 5 mg PO BID 07/17/19 Calcium Carbonate [Calcium] 600 mg PO DAILY 07/17/19 Carvedilol [Coreg -] 3.125 mg PO BID 07/17/19 Ergocalciferol (Vitamin D2) 25 mcg PO DAILY 07/17/19 [Vitamin D2] Fluticasone Propion/Salmeterol 1 each IH BID 07/17/19 [Wixela 500-50 Inhub] Hydralazine HCl 50 mg PO TID 07/17/19 Pantoprazole Sodium 40 mg PO DAILY 07/17/19 Potassium 10 meq PO BID 07/17/19 Torsemide 20 mg PO BID 07/17/19 Atorvastatin Calcium 40 mg PO HS 07/18/19 Active Medications Amlodipine Besylate (Norvasc -) 5 mg PO DAILY [facility] Last Admin: 07/20/19 09:14 Dose: 5 mg Atorvastatin Calcium (Lipitor -) 80 mg PO HS [facility] Last Admin: 07/19/19 21:40 Dose: 80 mg Bisacodyl (Dulcolax -) 20 mg PO ONCE ONE Stop: 07/22/19 13:01 Budesonide/Formoterol Fumarate (Symbicort 160/4.5mcg -) 2 puff IH BID [facility] Last Admin: 07/20/19 09:14 Dose: 2 puff Carvedilol (Coreg -) 3.125 mg PO BID [facility] Last Admin: 07/20/19 09:14 Dose: 3.125 mg Donepezil HCl (Aricept -) 10 mg PO HS [facility] Last Admin: 07/19/19 21:40 Dose: 10 mg Furosemide (Lasix Injection -) 40 mg IVPUSH BID@0600,1400 [facility] Heparin Sodium (Porcine) (Heparin -) 5,000 unit SQ BID [facility] Last Admin: 07/20/19 09:14 Dose: 5,000 unit Hydralazine HCl (Apresoline -) 50 mg PO TID [facility] Last Admin: 07/20/19 05:50 Dose: 50 mg Insulin Aspart (Novolog Vial Sliding Scale -) 1 vial SQ ACHS [facility]; Protocol Last Admin: 07/20/19 10:40 Dose: Not Given Magnesium Citrate (Citroma -) 300 ml PO ONCE ONE Stop: 07/21/19 13:01 Pantoprazole Sodium (Protonix -) 40 mg PO DAILY [facility] Last Admin: 07/20/19 09:14 Dose: 40 mg Polyethylene Glycol/Electrolytes (Golytely Solution -) 4,000 ml PO ONCE ONE Stop: 07/22/19 15:01 Potassium Chloride (K-Dur -) 40 meq PO ONCE ONE Stop: 07/20/19 12:46 Laboratory Results - last 24 hr 07/19/19 07/20/19 07/20/19 21:39 05:44 06:47 WBC RBC Hgb Hct MCV MCH MCHC RDW Plt Count MPV Sodium 140 Potassium 3.6 Chloride 102 Carbon Dioxide 30 Anion Gap 8 BUN 24.8 H Creatinine 1.3 Est GFR (CKD-EPI)AfAm 48.13 Est GFR (CKD-EPI)NonAf 41.53 POC Glucometer 100 101 Random Glucose 96 Calcium 9.0 Phosphorus 4.0 Magnesium 1.8 07/20/19 07/20/19 06:47 10:38 WBC 9.3 RBC 3.57 L Hgb 8.7 L Hct 27.0 L MCV 75.6 L MCH 24.3 L MCHC 32.2 RDW 19.8 H Plt Count 342 MPV 8.8 Sodium Potassium Chloride Carbon Dioxide Anion Gap BUN Creatinine Est GFR (CKD-EPI)AfAm Est GFR (CKD-EPI)NonAf POC Glucometer 91 Random Glucose Calcium Phosphorus Magnesium Microbiology 07/17/19 00:40 Blood - Peripheral Venous Blood Culture - Preliminary NO GROWTH OBTAINED AFTER 72 HOURS, INCUBATION TO CONTINUE FOR 2 DAYS. 07/17/19 00:40 Blood - Peripheral Venous Blood Culture - Preliminary NO GROWTH OBTAINED AFTER 72 HOURS, INCUBATION TO CONTINUE FOR 2 DAYS. 07/17/19 06:00 Urine - Urine Clean Catch Urine Culture - Final Contaminated: Please Repeat ASSESSMENT AND PLAN: 68 yof with PMhx of diastolic HF, HTN, HLD, morbid obesity, asthma/bronchitis, reported recurrent recent admissions with CHF, also anemia s/p recent PRBC admitted with dyspnea. -Acute hypoxic/hypercapneic respiratory failure -Acute on chronic diastolic heart failure exacerbation -Uncontrolled HTN -Elevated troponin, suspect demand mediated type II NSTEMI from above, rather than ACS -MARISOL, suspect cardiorenal. -?H/o PAF -Anemia, ?Acute vs chronic, -Asthma/Bronchitis, do not suspect in exacerbation or infectious process -HTN -HLD -Morbid obesity -Suspected TREY Plan: Continues to improved Taper lasix to 40 mg IV BID, continue as tolerated daily weights. NIPPV prn Cardiology/pulmonary input noted. Continue coreg/hydralazine/amlodipine. s/p 1 unit PRBC, h/h stable now. GI input noted, plan for EGD/colonoscopy on 07/23 if no concerns. Recently on ?Elipingis, d/you given anemia, patient denies taking it, will defer to outpatient cardiology. Family concerned about recurrent CHF. Counseled on good BP control and outpatient sleep study. Nutrition consult DVTPPX SCDs for now. PT eval, OOB. Home oxygen needs prior to dc. Discussed with patient in detail, all questions answered. dc early next week if volume status improved and no GI concerns.
[2019-07-20] MEDS ORDERED: POTASSIUM CHLORIDE TABS 20 MEQ TABLET.ER (FP) PO ONE (12:45)
[2019-07-20] MEDS ORDERED: MAGNESIUM CL 64 MG TABLET.SA PO SCH (15:15)
--- NOTE | 2019-07-20 17:07 | PN ---
Physical Exam: SUBJECTIVE: Patient seen and examined NAEON. Did not use BiPAP Denies SOB, thinks it has improved overall. Denies CP, dark bowel movement OBJECTIVE: Vital Signs Period Temp Pulse Resp BP Sys/Christensen Pulse Ox Last 24 Hr 97.7 F-98.3 F 77-87 20-20 124-150/54-84 97-99 GENERAL: The patient is awake, alert. NAD HEAD: Normal with no signs of trauma. EYES: sclera anicteric, conjunctival pallor. ENT: Ears normal, nares patent, moist mucous membranes. NECK: Trachea midline, full range of motion, supple. LUNGS: CTA b/l, no accessory muscle use. 3L NC HEART: Regular rate and rhythm, S1, S2 without murmur, rub or gallop. ABDOMEN: Soft, nontender, nondistended, no guarding, no rebound. EXTREMITIES: 2+ pulses, warm, well-perfused, 1+ edema to BLE NEUROLOGICAL: Normal speech PSYCH: Normal mood, normal affect. SKIN: Warm, dry, normal turgor, no rashes or lesions noted Laboratory Results - last 24 hr 07/19/19 07/20/19 07/20/19 21:39 05:44 06:47 WBC RBC Hgb Hct MCV MCH MCHC RDW Plt Count MPV Sodium 140 Potassium 3.6 Chloride 102 Carbon Dioxide 30 Anion Gap 8 BUN 24.8 H Creatinine 1.3 Est GFR (CKD-EPI)AfAm 48.13 Est GFR (CKD-EPI)NonAf 41.53 POC Glucometer 100 101 Random Glucose 96 Calcium 9.0 Phosphorus 4.0 Magnesium 1.8 07/20/19 07/20/19 07/20/19 06:47 10:38 16:15 WBC 9.3 RBC 3.57 L Hgb 8.7 L Hct 27.0 L MCV 75.6 L MCH 24.3 L MCHC 32.2 RDW 19.8 H Plt Count 342 MPV 8.8 Sodium Potassium Chloride Carbon Dioxide Anion Gap BUN Creatinine Est GFR (CKD-EPI)AfAm Est GFR (CKD-EPI)NonAf POC Glucometer 91 105 Random Glucose Calcium Phosphorus Magnesium Active Medications Generic Name Dose Route Start Last Admin Trade Name Freq PRN Reason Stop Dose Admin Amlodipine Besylate 5 mg 07/17/19 10:00 07/20/19 09:14 Norvasc - PO 5 mg DAILY [facility] Administration Atorvastatin Calcium 80 mg 07/17/19 22:00 07/19/19 21:40 Lipitor - PO 80 mg HS [facility] Administration Bisacodyl 20 mg 07/22/19 13:00 Dulcolax - PO 07/22/19 13:01 ONCE ONE Budesonide/Formoterol Fumarate 2 puff 07/19/19 22:00 07/20/19 09:14 Symbicort 160/4.5mcg - IH 2 puff BID [facility] Administration Carvedilol 3.125 mg 07/17/19 22:00 07/20/19 09:14 Coreg - PO 3.125 mg BID [facility] Administration Donepezil HCl 10 mg 07/17/19 22:00 07/19/19 21:40 Aricept - PO 10 mg HS [facility] Administration Furosemide 40 mg 07/21/19 06:00 Lasix Injection - IVPUSH BID@0600,1400 [facility] Heparin Sodium (Porcine) 5,000 unit 07/19/19 22:00 07/20/19 09:14 Heparin - SQ 5,000 unit BID [facility] Administration Hydralazine HCl 50 mg 07/17/19 22:00 07/20/19 14:27 Apresoline - PO 50 mg TID [facility] Administration Insulin Aspart 1 vial 07/17/19 07:00 07/20/19 16:15 Novolog Vial Sliding Scale - SQ Not Given ACHS [facility] Protocol Magnesium Citrate 300 ml 07/21/19 13:00 Citroma - PO 07/21/19 13:01 ONCE ONE Pantoprazole Sodium 40 mg 07/19/19 18:45 07/20/19 09:14 Protonix - PO 40 mg DAILY [facility] Administration Polyethylene Glycol/Electrolytes 4,000 ml 07/22/19 15:00 Golytely Solution - PO 07/22/19 15:01 ONCE ONE Potassium Chloride 40 meq 07/20/19 15:13 Potassium Chloride Oral Liquid PO BID [facility] Vital Signs Temp 98.2 F 07/20/19 14:00 Pulse 80 07/20/19 14:00 Resp 20 07/20/19 14:00 BP 124/54 L 07/20/19 14:00 Pulse Ox 97 07/20/19 16:40 Intake & Output 07/19/19 07/20/19 07/20/19 23:59 11:59 23:59 Intake Total 360 240 Output Total 600 400 900 Balance -240 -400 -660 Intake: Oral 360 240 Output: Urine 600 400 900 External Catheter 300 400 900 Void 300 Other: Voiding Method Incontinent External Catheter # Unmeasured Voids Void 2 Bowel Movement No No ASSESSMENT/PLAN: 68 y.o. F PMH asthma/ COPD, diastolic CHF pEF, HTN, HLD, dementia presenting from home d/t SOB. #Acute HFpEF exacerbation > BNP(07/17/19) ~1959.6 >troponin 0.05 ->0.06 -> 0.07 -> 0.07 >Echo(07/17/19): LV is normal, mild LVH >CTA(07/17/19): neg AAA, neg PE, trace pleural effusion >EKG shows sinus tachy, QTc 530 >EKG(07/18/19): NSR, QTc 483 -Lasix 40mg IV BID -Solumedrol IV 40mg q6h -- dc'd -Is & Os -Daily weights -Cardio consulted (Dr. Rosado) #SOB 2/2 to HFrEF >CXR(07/18/19): cardiomegaly, fullness of eduarda, no gross infiltrate >ABG(07/17/19): 7.42/37.1/116/23.6/98.5/-0.2 on BiPAP >ABG(07/18/19): 7.46/39.3/70.9/27.7/93.9/4.1 on 4L NC -Doxycycline & rocephin for abx coverage-- recent sick contact-- dc'd -BIPAP PRN and QHS -Pulm consulted-- Dr. 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 Montgomery -- hold A/C -- Daily Protonix 40mg -- CLEAR LIQUID DIET prior to tentative EGD-CScope on 07/23/19 -Eliquis rceently d/c'd-- pt was not on eliquis 2017 --as per City Attorney(Dr Mir Mims) TTE(March 2019) showed thrombus x2 of RA, but then Dave MENA(April 2019) showed no thrombus -- Eliquis dc'd #CPOD -cw home fluticasone/salmeterol -supplemental O2 PRN -will assess Pre and Post O2 prior to discharge #MARISOL >HbA1c 5.1 >Cr(baseline ~1): 1.5 -> 1.4 -> 1.3 ->1.2-->1.3 -encourage PO hydration #asymptomic UTI -- will not treat >UA(07/17/19): neg nitrite, 1+ LE, WBC 14, Bact 184.5 >UCX(07/17/19): contaminated -- won't treat as pt is asymptomatic #HTN -home meds: hydralazine, carvedilol, amlodipine #HLD -C/w atorvastatin 80mg daily #Dementia -C/w donepezil #FEN -trend lytes -low fat/sugar diet #PPX DVT: SCDS, SQHep BID Visit type - Emergency Visit Emergency Visit: No - New Patient This patient is new to me today: No - Critical Care Critical Care patient: No ATTENDING PHYSICIAN STATEMENT I saw and evaluated the patient. I reviewed the resident's note and discussed the case with the resident. I agree with the resident's findings and plan as documented. SUBJECTIVE: OBJECTIVE: ASSESSMENT AND PLAN:
[2019-07-20] MEDS: POTASSIUM CHLORIDE ORAL LIQUID 20 MEQ/15 ML PO SCH ×2 (17:57→21:26)
[2019-07-20] MEDS: DONEPEZIL HCL 10 MG TABLET (FP) PO SCH (21:25)
[2019-07-20] MEDS: ATORVASTATIN CA 40 MG TABLET (FP) PO SCH (21:26)
[2019-07-21] MEDS: FUROSEMIDE 40 MG/4 ML INJECTABLE VIAL IVPUSH SCH ×2 (06:28→15:15)
[2019-07-21] MEDS: hydrALAZINE HCL 25 MG TABLET (FP) PO SCH ×3 (06:28→21:10)
[2019-07-21] MEDS: INSULIN SLIDING SCALE (NOVOLOG) 1 VIAL SQ SCH ×4 (06:28→21:12)
[2019-07-21 06:41] LABS: HEMATOCRIT 26.9 % (32.4-45.2); HEMOGLOBIN 8.6 GM/dL (10.7-15.3); MCH 24.6 pg (25.7-33.7); MEAN CELL VOLUME 76.9 fl (80-96); MEAN PLT VOLUME 9.2 fl (7.5-11.1); PLATELET COUNT 333 K/MM3 (134-434); RDW 19.7 % (11.6-15.6); WHITE BLOOD COUNT 8.2 K/mm3 (4.0-10.0)
[2019-07-21 06:53] LABS: BLOOD UREA NITROGEN 26.5 mg/dL (7-18); CALCIUM 9.7 mg/dL (8.5-10.1); CREATININE 1.3 mg/dL (0.55-1.3); PHOSPHOROUS 3.9 mg/dL (2.5-4.9); POTASSIUM 4.6 mmol/L (3.5-5.1)
--- NOTE | 2019-07-21 07:24 | PN ---
Progress Note (short form) - Note Progress Note: Chief Complaint: Event noted, notes reviewed, dyspnea improved, denies any chest pain History of Present Illness: Seen and examined on telemetry. Event noted, notes reviewed, dyspnea improved, denies any chest pain - Current Medication List Current Medications Amlodipine Besylate (Norvasc -) 5 mg PO DAILY [facility] Last Admin: 07/20/19 09:14 Dose: 5 mg Atorvastatin Calcium (Lipitor -) 80 mg PO HS [facility] Last Admin: 07/20/19 21:26 Dose: 80 mg Bisacodyl (Dulcolax -) 20 mg PO ONCE ONE Stop: 07/22/19 13:01 Budesonide/Formoterol Fumarate (Symbicort 160/4.5mcg -) 2 puff IH BID [facility] Last Admin: 07/20/19 21:30 Dose: 2 puff Carvedilol (Coreg -) 3.125 mg PO BID [facility] Last Admin: 07/20/19 21:25 Dose: 3.125 mg Donepezil HCl (Aricept -) 10 mg PO [facility] Last Admin: 07/20/19 21:25 Dose: 10 mg Furosemide (Lasix Injection -) 40 mg IVPUSH BID@0600,1400 [facility] Last Admin: 07/21/19 06:28 Dose: 40 mg Heparin Sodium (Porcine) (Heparin -) 5,000 unit SQ BID [facility] Last Admin: 07/20/19 21:25 Dose: 5,000 unit Hydralazine HCl (Apresoline -) 50 mg PO TID [facility] Last Admin: 07/21/19 06:28 Dose: 50 mg Insulin Aspart (Novolog Vial Sliding Scale -) 1 vial SQ ACHS [facility]; Protocol Last Admin: 07/21/19 06:28 Dose: Not Given Magnesium Citrate (Citroma -) 300 ml PO ONCE ONE Stop: 07/21/19 13:01 Pantoprazole Sodium (Protonix -) 40 mg PO DAILY [facility] Last Admin: 07/20/19 09:14 Dose: 40 mg Polyethylene Glycol/Electrolytes (Golytely Solution -) 4,000 ml PO ONCE ONE Stop: 07/22/19 15:01 Potassium Chloride (Potassium Chloride Oral Liquid) 40 meq PO BID [facility] Last Admin: 07/20/19 21:26 Dose: 40 meq Review of Systems Cardiovascular: As noted above Respiratory: denies Cough or Sputum Production Gastrointestinal: denies: Nausea, Vomiting, Diarrhea, Constipation or Abdominal Discomfort Musculoskeletal: Degenerate Joint Disease - Objective Vital Signs: Last Vital Signs Temp Pulse Resp BP Pulse Ox 98.4 F 78 20 151/75 98 07/21/19 06:00 07/21/19 07:50 07/21/19 06:00 07/21/19 06:00 07/21/19 07:50 Intake & Output 07/18/19 07/19/19 07/20/19 07/21/19 23:59 23:59 23:59 23:59 Intake Total 780 630 240 400 Output Total 843 025 5335 Balance 80 30 -1060 400 Weight 271 lb 266 lb 12.8 oz 267 lb 6.4 oz Constitutional: No Distress, Calm Neck: Supple Negative JVD No Bruit Respiratory: Diminished Breath Sounds at the Bases Cardiovascular: S1 S2 Regular Rate Rhythm Gastrointestinal: Soft Benign Normal Bowel Sounds Ext: Trace Edema Labs: CBC, BMP 07/21/19 05:25 07/21/19 05:25 Hepatic Panel Total Bilirubin 0.5 mg/dL (0.2-1) 07/17/19 08:02 AST 19 U/L (15-37) 07/17/19 08:02 ALT 14 U/L (13-61) 07/17/19 08:02 Alkaline Phosphatase 106 U/L (45-117) 07/17/19 08:02 Albumin 3.2 g/dl (3.4-5.0) L 07/17/19 08:02 ASSESSMENT: 1. Clinical presentation consistent with acute on chronic class II NYHA classification LV daistolic failure/(HFpEF), resolving 2. CAD with evidence of demand ischemic injury/subendocardial ischemia angina pectoris 3. Questionable history of paroxysmal atrial fibrillation currently off of A/C therapy 4. HTN 5. Hypercholesterolemia 6. History of cerebrovascular disease 7. COPD 8. OSAS is a suspect 9. Organic brain syndrome/dementia 10. Acute on chronic, CKD improving 11. Iron-deficiency anemia likely referable to gastric angioectasias 12. History of diverticulitis PLAN: 1. Continue Carvedilol 2. Continue Norvasc 3. Continue Hydralazine 4. Continue Lipitor 5. Continue IV Lasix an additional 24 hours, then switch to PO 6. As outlined in the prior notes Eliquis therapy was D/C by her marketing development manager if recurrent atrial fibrillation is noted to consider resumption of therapy versus SUZANNE closure device implant 7. Transfuse to maintain Hgb > 8.0, continue to withhold ASA resumption 8. Plan to proceed with planned gastrointestinal evaluation for the above noted anemia this coming week Rekha Padilla M.D.
[2019-07-21] MEDS: BUDESONIDE/FORMETEROL FUMARATE 160/4.5 mcg INHALER IH SCH ×2 (10:00→21:19)
--- NOTE | 2019-07-21 10:28 | PN ---
Progress Note, Physician History of Present Illness: PULMONARY ALERT,COMFORTABLE,-CP,-SOB - Current Medication List Current Medications: Active Medications Amlodipine Besylate (Norvasc -) 5 mg PO DAILY [facility] Last Admin: 07/20/19 09:14 Dose: 5 mg Atorvastatin Calcium (Lipitor -) 80 mg PO HS [facility] Last Admin: 07/20/19 21:26 Dose: 80 mg Bisacodyl (Dulcolax -) 20 mg PO ONCE ONE Stop: 07/22/19 13:01 Budesonide/Formoterol Fumarate (Symbicort 160/4.5mcg -) 2 puff IH BID [facility] Last Admin: 07/20/19 21:30 Dose: 2 puff Carvedilol (Coreg -) 3.125 mg PO BID [facility] Last Admin: 07/20/19 21:25 Dose: 3.125 mg Donepezil HCl (Aricept -) 10 mg PO HS [facility] Last Admin: 07/20/19 21:25 Dose: 10 mg Furosemide (Lasix Injection -) 40 mg IVPUSH BID@0600,1400 [facility] Last Admin: 07/21/19 06:28 Dose: 40 mg Heparin Sodium (Porcine) (Heparin -) 5,000 unit SQ BID [facility] Last Admin: 07/20/19 21:25 Dose: 5,000 unit Hydralazine HCl (Apresoline -) 50 mg PO TID [facility] Last Admin: 07/21/19 06:28 Dose: 50 mg Insulin Aspart (Novolog Vial Sliding Scale -) 1 vial SQ ACHS [facility]; Protocol Last Admin: 07/21/19 06:28 Dose: Not Given Magnesium Citrate (Citroma -) 300 ml PO ONCE ONE Stop: 07/21/19 13:01 Pantoprazole Sodium (Protonix -) 40 mg PO DAILY [facility] Last Admin: 07/20/19 09:14 Dose: 40 mg Polyethylene Glycol/Electrolytes (Golytely Solution -) 4,000 ml PO ONCE ONE Stop: 07/22/19 15:01 Potassium Chloride (Potassium Chloride Oral Liquid) 40 meq PO BID [facility] Last Admin: 07/20/19 21:26 Dose: 40 meq - Objective Vital Signs: Vital Signs Temperature 98.4 F 07/21/19 06:00 Pulse Rate 78 07/21/19 07:50 Respiratory Rate 20 07/21/19 06:00 Blood Pressure 151/75 07/21/19 06:00 O2 Sat by Pulse Oximetry (%) 98 07/21/19 07:50 Constitutional: Yes: Calm, Obese Eyes: Yes: WNL HENT: Yes: WNL Neck: Yes: WNL Cardiovascular: Yes: Regular Rate and Rhythm, S1 Respiratory: Yes: Diminished Gastrointestinal: Yes: Normal Bowel Sounds, Soft Extremities: Yes: WNL Edema: No Labs: CBC, BMP 07/21/19 05:25 07/21/19 05:25 INR, PTT INR 1.02 (0.83-1.09) 07/17/19 00:40 Assessment/Plan Problem List - Problems (1) Dyspnea Code(s): R06.00 - DYSPNEA, UNSPECIFIED (2) Decompensated heart failure Code(s): I50.9 - HEART FAILURE, UNSPECIFIED (3) Morbid obesity Code(s): E66.01 - MORBID (SEVERE) OBESITY DUE TO EXCESS CALORIES (4) CKD (chronic kidney disease) Code(s): N18.9 - CHRONIC KIDNEY DISEASE, UNSPECIFIED (5) Respiratory failure with hypoxia Code(s): J96.91 - RESPIRATORY FAILURE, UNSPECIFIED WITH HYPOXIA Qualifiers: Chronicity: acute Qualified Code(s): J96.01 - Acute respiratory failure with hypoxia (6) Shortness of breath Code(s): R06.02 - SHORTNESS OF BREATH (7) Dementia Code(s): F03.90 - UNSPECIFIED DEMENTIA WITHOUT BEHAVIORAL DISTURBANCE (8) HTN (hypertension) Code(s): I10 - ESSENTIAL (PRIMARY) HYPERTENSION 9 SEVERE ANEMIA Assessment/Plan IMP: Do not suspect AE of Obstructive Airways Disease Do not suspect Respiratory Tract infection Probable OSAS Anemia Acute on chronic chf improved PLAN: BD TX PRN O2 as needed NIPPV support for increase WOB Will need formal OSAS evaluation after discharge Lasix BID Daily weight Follow I & O Monitor h+h normal transfusion threshold GI w/u in progress no pulmonary contraindication for colonoscopy and egd DR LAYNE
[2019-07-21] MEDS: PANTOPRAZOLE 40 MG TABLET (FP) PO SCH (10:58)
[2019-07-21] MEDS: HEPARIN NA (PORCINE) 5,000 UNITS/ML 1ML VIAL SQ SCH ×2 (10:58→21:10)
[2019-07-21] MEDS: amLODIPine BESYLATE 5 MG TABLET (FP) PO SCH (10:58)
[2019-07-21] MEDS: CARVEDILOL 3.125 MG TABLET (FP) PO SCH ×2 (10:58→21:10)
[2019-07-21] MEDS: POTASSIUM CHLORIDE ORAL LIQUID 20 MEQ/15 ML PO SCH ×2 (10:58→21:09)
--- NOTE | 2019-07-21 12:26 | PN ---
Progress Note, Physician History of Present Illness: Patient seen and examined at bedside. she endorses some back pain from laying on the same side in the bed. She otherwise offers no complaints. She denies nausea vomiting fever chills chest pain or SOB. Denies black stools or rectal bleeding CLD tomorrow and NPO past midnight tomorrow night for EGD/colonoscopy tuesday Hb is stable today at 8.6-s/p 1 unit PRBCs 3 days ago. No a fib on telemetry - Current Medication List Current Medications: Active Medications Amlodipine Besylate (Norvasc -) 5 mg PO DAILY [facility] Last Admin: 07/21/19 10:58 Dose: 5 mg Atorvastatin Calcium (Lipitor -) 80 mg PO HS [facility] Last Admin: 07/20/19 21:26 Dose: 80 mg Bisacodyl (Dulcolax -) 20 mg PO ONCE ONE Stop: 07/22/19 13:01 Budesonide/Formoterol Fumarate (Symbicort 160/4.5mcg -) 2 puff IH BID [facility] Last Admin: 07/20/19 21:30 Dose: 2 puff Carvedilol (Coreg -) 3.125 mg PO BID [facility] Last Admin: 07/21/19 10:58 Dose: 3.125 mg Donepezil HCl (Aricept -) 10 mg PO HS [facility] Last Admin: 07/20/19 21:25 Dose: 10 mg Furosemide (Lasix Injection -) 40 mg IVPUSH BID@0600,1400 [facility] Last Admin: 07/21/19 06:28 Dose: 40 mg Heparin Sodium (Porcine) (Heparin -) 5,000 unit SQ BID [facility] Last Admin: 07/21/19 10:58 Dose: 5,000 unit Hydralazine HCl (Apresoline -) 50 mg PO TID [facility] Last Admin: 07/21/19 06:28 Dose: 50 mg Insulin Aspart (Novolog Vial Sliding Scale -) 1 vial SQ ACHS [facility]; Protocol Last Admin: 07/21/19 06:28 Dose: Not Given Magnesium Citrate (Citroma -) 300 ml PO ONCE ONE Stop: 07/21/19 13:01 Pantoprazole Sodium (Protonix -) 40 mg PO DAILY [facility] Last Admin: 07/21/19 10:58 Dose: 40 mg Polyethylene Glycol/Electrolytes (Golytely Solution -) 4,000 ml PO ONCE ONE Stop: 07/22/19 15:01 Potassium Chloride (Potassium Chloride Oral Liquid) 40 meq PO BID [facility] Last Admin: 07/21/19 10:58 Dose: 40 meq - Objective Vital Signs: Vital Signs Temperature 98.4 F 07/21/19 06:00 Pulse Rate 78 07/21/19 07:50 Respiratory Rate 20 07/21/19 06:00 Blood Pressure 151/75 07/21/19 06:00 O2 Sat by Pulse Oximetry (%) 98 07/21/19 07:50 Constitutional: Yes: Well Nourished, No Distress, Obese, Other (able to ambulate to [facility]) Eyes: Yes: Other (Conjunctival pallor) HENT: Yes: Atraumatic, Normocephalic Neck: Yes: Supple Cardiovascular: Yes: Regular Rate and Rhythm Respiratory: Yes: WNL, Regular, CTA Bilaterally. No: Rales Gastrointestinal: Yes: Soft. No: Distention, Tenderness Edema: Yes Edema: LLE: 1+, RLE: 1+ Neurological: Yes: Alert, Oriented Labs: CBC, BMP 07/21/19 05:25 07/21/19 05:25 INR, PTT INR 1.02 (0.83-1.09) 07/17/19 00:40 Impression/Plan Impression/Plan: 68 year old female with multiple medical problems including diastolic CHF, HTN, HLD, morbid obesity, asthma/bronchitis, presents with dyspnea and anemia. Acute hypoxic/hypercapneic respiratory failure Acute on chronic diastolic heart failure exacerbation Uncontrolled HTN Elevated troponin, suspect demand mediated type II NSTEMI from above, rather than ACS MARISOL, suspect cardiorenal. H/o PAF Anemia, ?Acute vs chronic, Asthma/Bronchitis, do not suspect in exacerbation or infectious process HTN HLD Morbid obesity Suspected TREY Plan: Continue lasix 40mg iv BID for now and switch back to home dose of oral torsemide tomorrow monitor I/O daily weights cardiology consult noted appreciated pulmonary consult noted and appreciated Bipap if needed Continue coreg/hydralazine/amlodipine. s/p 1 unit PRBC 3 days ago H/H stable at 8.6 today Patient for EGD/Colonoscopy Tuesday. cardiology recs noted. Continue to hold eliquis for now as patient has not been on it. If has recurrent A fib will need to reconsider anticoagulation Hold aspirin per cardiology will need outpatient sleep study. GI consult noted and appreciated -CLD tomorrow and NPO past midnight tomorrow night for EGD/colonoscopy tuesday HSQ for DVT PPx Protonix for GI PPx PT consult to avoid deconditioning No cardiopulmonary contraindication for EGD/Colonoscopy at this time Visit type - Emergency Visit Emergency Visit: Yes ED Registration Date: 07/17/19 Care time: The patient presented to the Emergency Department on the above date and was hospitalized for further evaluation of their emergent condition. - New Patient This patient is new to me today: Yes Date on this admission: 07/21/19 - Critical Care Critical Care patient: No
[2019-07-21] MEDS ORDERED: MAGNESIUM CITRATE 300 ML BOTTLE PO ONE ×2 (13:00→17:45)
[2019-07-21] MEDS: ATORVASTATIN CA 40 MG TABLET (FP) PO SCH (21:09)
[2019-07-21] MEDS: DONEPEZIL HCL 10 MG TABLET (FP) PO SCH (21:09)
[2019-07-22] MEDS: hydrALAZINE HCL 25 MG TABLET (FP) PO SCH ×3 (05:24→22:01)
[2019-07-22] MEDS: FUROSEMIDE 40 MG/4 ML INJECTABLE VIAL IVPUSH SCH (05:24)
[2019-07-22] MEDS: INSULIN SLIDING SCALE (NOVOLOG) 1 VIAL SQ SCH ×2 (06:58→13:03)
[2019-07-22 07:13] LABS: CALCIUM 9.2 mg/dL (8.5-10.1); CREATININE 1.4 mg/dL (0.55-1.3); MAGNESIUM 2.5 mg/dL (1.8-2.4); POTASSIUM 4.7 mmol/L (3.5-5.1)
[2019-07-22 07:19] LABS: BASO % 1.4 % (0-2.0); EOS % 4.2 % (0-4.5); HEMATOCRIT 25.3 % (32.4-45.2); HEMOGLOBIN 8.3 GM/dL (10.7-15.3); MCH 24.9 pg (25.7-33.7); MCHC 32.7 g/dl (32.0-36.0); MEAN CELL VOLUME 76.3 fl (80-96); MEAN PLT VOLUME 9.3 fl (7.5-11.1); MONO % 6.8 % (3.8-10.2); NEUT % 64.6 % (42.8-82.8); PLATELET COUNT 331 K/MM3 (134-434); RBC 3.32 M/mm3 (3.60-5.2); RDW 20.5 % (11.6-15.6); WHITE BLOOD COUNT 7.8 K/mm3 (4.0-10.0)
--- NOTE | 2019-07-22 09:44 | PN ---
Physical Exam: SUBJECTIVE: Patient seen and examined this AM. Feels her breathing has improved. No longer feels SOB. OBJECTIVE: Vital Signs Period Temp Pulse Resp BP Sys/Christensen Pulse Ox Last 24 Hr 97.5 F-98.6 F 79-92 20-21 122-147/47-77 95-96 GENERAL: A&Ox3, NAD HEAD: NCAT EYES: PERRL, EOMI ENT: Moist mucous membranes. NECK: Supple LUNGS: CTAB, no wheezes, no crackles HEART: Regular rate and rhythm, S1, S2 without murmur ABDOMEN: Obese, Soft, nontender, nondistended, + bowel sounds, no guarding, no rebound EXTREMITIES: Trace edema NEUROLOGICAL: Cranial nerves II through XII grossly intact. Normal speech SKIN: Warm, dry Laboratory Results - last 24 hr 07/22/19 07/22/19 05:35 05:35 WBC 7.8 RBC 3.32 L Hgb 8.3 L Hct 25.3 L MCV 76.3 L MCH 24.9 L MCHC 32.7 RDW 20.5 H Plt Count 331 MPV 9.3 Absolute Neuts (auto) 5.1 Neutrophils % 64.6 Lymphocytes % 23.0 D Monocytes % 6.8 Eosinophils % 4.2 Basophils % 1.4 Nucleated RBC % 0 Sodium 139 Potassium 4.7 Chloride 105 Carbon Dioxide 28 Anion Gap 7 L BUN 27.0 H Creatinine 1.4 H Est GFR (CKD-EPI)AfAm 44.01 Est GFR (CKD-EPI)NonAf 37.97 Random Glucose 98 Calcium 9.2 Magnesium 2.5 H Microbiology 07/20/19 07:13 Urine - Urine Clean Catch Urine Culture - Final Escherichia Coli [employer] 07/17/19 00:40 Blood - Peripheral Venous Blood Culture - Final NO GROWTH AFTER 5 DAYS INCUBATION 07/17/19 00:40 Blood - Peripheral Venous Blood Culture - Final NO GROWTH AFTER 5 DAYS INCUBATION 07/17/19 06:00 Urine - Urine Clean Catch Urine Culture - Final Contaminated: Please Repeat Active Medications Amlodipine Besylate (Norvasc -) 5 mg PO DAILY [facility] Last Admin: 07/21/19 10:58 Dose: 5 mg Atorvastatin Calcium (Lipitor -) 80 mg PO HS [facility] Last Admin: 07/21/19 21:09 Dose: 80 mg Bisacodyl (Dulcolax -) 20 mg PO ONCE ONE Stop: 07/22/19 13:01 Budesonide/Formoterol Fumarate (Symbicort 160/4.5mcg -) 2 puff IH BID [facility] Last Admin: 07/21/19 21:19 Dose: 2 puff Carvedilol (Coreg -) 3.125 mg PO BID [facility] Last Admin: 07/21/19 21:10 Dose: 3.125 mg Donepezil HCl (Aricept -) 10 mg PO HS [facility] Last Admin: 07/21/19 21:09 Dose: 10 mg Furosemide (Lasix Injection -) 40 mg IVPUSH BID@0600,1400 [facility] Last Admin: 07/22/19 05:24 Dose: 40 mg Heparin Sodium (Porcine) (Heparin -) 5,000 unit SQ BID [facility] Last Admin: 07/21/19 21:10 Dose: 5,000 unit Hydralazine HCl (Apresoline -) 50 mg PO TID [facility] Last Admin: 07/22/19 05:24 Dose: 50 mg Insulin Aspart (Novolog Vial Sliding Scale -) 1 vial SQ ACHS [facility]; Protocol Last Admin: 07/22/19 06:58 Dose: Not Given Pantoprazole Sodium (Protonix -) 40 mg PO DAILY [facility] Last Admin: 07/21/19 10:58 Dose: 40 mg Polyethylene Glycol/Electrolytes (Golytely Solution -) 4,000 ml PO ONCE ONE Stop: 07/22/19 15:01 Potassium Chloride (Potassium Chloride Oral Liquid) 40 meq PO BID [facility] Last Admin: 07/21/19 21:09 Dose: 40 meq ASSESSMENT/PLAN: 68 y/o F PMHx asthma/COPD, HFpEF, HTN, HLD, dementia presented with SOB, found to be in AHHRF due to Acute CHF Exacerbation. #Acute on chronic diastolic heart failure exacerbation -Echo, EKG, Imaging, Labwork appreciated; SOB improving, VSS -DC IV Furosemide today; Start Home dose Toresmide tmrw -Monitor I&Os, Daily weights, Cr -Cardio Consulted, Appreciate rec's #Acute hypoxic hypercapneic respiratory failure -In the setting of Acute CHF exacerbation -Continue Bronchodilators -Supplemental O2 to maintain SpO2 88-92%, BIPAP PRN and QHS -Pulmonology consulted, Appreciate rec's -Will need TREY eval after discharge -Pre and Post prior to d/c #Iron Deficiency anemia -S/P 1u pRBC Transfusion in the setting of prior Duodenal angiodysplastic lesion as per family -FOBT Negative -GI Consulted, Appreciate rec's -Continue Pantoprazole -NPO after midnight for tentative EGD/Colonoscopy on 07/23/19 -Transfuse to maintain Hgb > 8.0 -Hold ASA #MARISOL -Previously resolved, however today Cr 1.4 -Hold off further diuresis today, Resume home dose toresmide tmrw -Encourage PO hydration #Asymptomatic bacteuria -Positive Urine Culture however remains Asymptomatic -Hold off on ABx for now; Will consider ABx if febrile or with leukocytosis #HTN -Continue Amlodipine, Carvedilol, Hydralazine #COPD, Not on Home O2 -Continue home dose Budesonide/Formoterol #Dyslipidemia -Atorvastatin #Dementia -Donepezil #Elevated Troponin -Likely demand ischemia, Patient without chest pain -T[place] trend #Prolonged QTc -Avoid QT prolonging meds -Serial EKGs #FEN -No standing fluids -Replete lytes PRN -Clear liquid diet; NPO after midnight #PPX -DVT: Heparin Dispo: Monitor on Tele, For Scope tomorrow Visit type - Emergency Visit Emergency Visit: Yes ED Registration Date: 07/17/19 Care time: The patient presented to the Emergency Department on the above date and was hospitalized for further evaluation of their emergent condition. - New Patient This patient is new to me today: Yes Date on this admission: 07/23/19 - Critical Care Critical Care patient: No ATTENDING PHYSICIAN STATEMENT I saw and evaluated the patient. I reviewed the resident's note and discussed the case with the resident. I agree with the resident's findings and plan as documented. SUBJECTIVE: OBJECTIVE: ASSESSMENT AND PLAN:
[2019-07-22] MEDS: CARVEDILOL 3.125 MG TABLET (FP) PO SCH ×2 (09:53→22:02)
[2019-07-22] MEDS: HEPARIN NA (PORCINE) 5,000 UNITS/ML 1ML VIAL SQ SCH ×2 (09:53→22:05)
[2019-07-22] MEDS: amLODIPine BESYLATE 5 MG TABLET (FP) PO SCH (09:54)
[2019-07-22] MEDS: POTASSIUM CHLORIDE ORAL LIQUID 20 MEQ/15 ML PO SCH ×2 (09:54→22:02)
[2019-07-22] MEDS: PANTOPRAZOLE 40 MG TABLET (FP) PO SCH (09:55)
[2019-07-22] MEDS: BUDESONIDE/FORMETEROL FUMARATE 160/4.5 mcg INHALER IH SCH ×2 (09:56→22:05)
[2019-07-22 10:01] LABS: ANISOCYTOSIS 1+
[2019-07-22 10:02] LABS: PLATELET ESTIMATE ADEQUATE
--- NOTE | 2019-07-22 10:32 | PN ---
Progress Note, Physician History of Present Illness: pulmonary alert,no distress,-cp,-sob on nasal cannula - Current Medication List Current Medications: Active Medications Amlodipine Besylate (Norvasc -) 5 mg PO DAILY [facility] Last Admin: 07/22/19 09:54 Dose: 5 mg Atorvastatin Calcium (Lipitor -) 80 mg PO HS [facility] Last Admin: 07/21/19 21:09 Dose: 80 mg Bisacodyl (Dulcolax -) 20 mg PO ONCE ONE Stop: 07/22/19 13:01 Budesonide/Formoterol Fumarate (Symbicort 160/4.5mcg -) 2 puff IH BID [facility] Last Admin: 07/22/19 09:56 Dose: 2 puff Carvedilol (Coreg -) 3.125 mg PO BID [facility] Last Admin: 07/22/19 09:53 Dose: 3.125 mg Donepezil HCl (Aricept -) 10 mg PO HS [facility] Last Admin: 07/21/19 21:09 Dose: 10 mg Heparin Sodium (Porcine) (Heparin -) 5,000 unit SQ BID [facility] Last Admin: 07/22/19 09:53 Dose: 5,000 unit Hydralazine HCl (Apresoline -) 50 mg PO TID [facility] Last Admin: 07/22/19 05:24 Dose: 50 mg Insulin Aspart (Novolog Vial Sliding Scale -) 1 vial SQ ACHS [facility]; Protocol Last Admin: 07/22/19 06:58 Dose: Not Given Pantoprazole Sodium (Protonix -) 40 mg PO DAILY [facility] Last Admin: 07/22/19 09:55 Dose: 40 mg Polyethylene Glycol/Electrolytes (Golytely Solution -) 4,000 ml PO ONCE ONE Stop: 07/22/19 15:01 Potassium Chloride (Potassium Chloride Oral Liquid) 40 meq PO BID [facility] Last Admin: 07/22/19 09:54 Dose: 40 meq Torsemide (Demadex -) 20 mg PO BID@0600,1800 [facility] - Objective Vital Signs: Vital Signs Temperature 98.1 F 07/22/19 09:41 Pulse Rate 74 07/22/19 09:41 Respiratory Rate 20 07/22/19 09:41 Blood Pressure 144/68 07/22/19 09:41 O2 Sat by Pulse Oximetry (%) 95 07/21/19 21:00 Constitutional: Yes: Calm, Obese Eyes: Yes: WNL HENT: Yes: WNL Neck: Yes: WNL Cardiovascular: Yes: Regular Rate and Rhythm, S1, S2 Respiratory: Yes: CTA Bilaterally Gastrointestinal: Yes: Normal Bowel Sounds, Soft Extremities: Yes: WNL Edema: Yes Labs: CBC, BMP 07/22/19 05:35 07/22/19 05:35 INR, PTT INR 1.02 (0.83-1.09) 07/17/19 00:40 Assessment/Plan Problem List - Problems (1) Dyspnea Code(s): R06.00 - DYSPNEA, UNSPECIFIED (2) Decompensated heart failure Code(s): I50.9 - HEART FAILURE, UNSPECIFIED (3) Morbid obesity Code(s): E66.01 - MORBID (SEVERE) OBESITY DUE TO EXCESS CALORIES (4) CKD (chronic kidney disease) Code(s): N18.9 - CHRONIC KIDNEY DISEASE, UNSPECIFIED (5) Respiratory failure with hypoxia Code(s): J96.91 - RESPIRATORY FAILURE, UNSPECIFIED WITH HYPOXIA Qualifiers: Chronicity: acute Qualified Code(s): J96.01 - Acute respiratory failure with hypoxia (6) Shortness of breath Code(s): R06.02 - SHORTNESS OF BREATH (7) Dementia Code(s): F03.90 - UNSPECIFIED DEMENTIA WITHOUT BEHAVIORAL DISTURBANCE (8) HTN (hypertension) Code(s): I10 - ESSENTIAL (PRIMARY) HYPERTENSION 9 SEVERE ANEMIA Assessment/Plan IMP: Do not suspect AE of Obstructive Airways Disease Do not suspect Respiratory Tract infection Probable OSAS Anemia Acute on chronic chf improved PLAN: BD TX PRN O2 as needed NIPPV support for increase WOB Will need formal OSAS evaluation after discharge Lasix BID Daily weight Follow I & O Monitor h+h normal transfusion threshold no pulmonary contraindication for colonoscopy and egd DR LAYNE
--- NOTE | 2019-07-22 12:15 | PN ---
Progress Note, Physician History of Present Illness: Dyspnea improving weaned onto NC. OOB in chair. She has started Golytely prep. - Current Medication List Current Medications: Active Medications Amlodipine Besylate (Norvasc -) 5 mg PO DAILY [facility] Last Admin: 07/22/19 09:54 Dose: 5 mg Atorvastatin Calcium (Lipitor -) 80 mg PO HS [facility] Last Admin: 07/21/19 21:09 Dose: 80 mg Bisacodyl (Dulcolax -) 20 mg PO ONCE ONE Stop: 07/22/19 13:01 Budesonide/Formoterol Fumarate (Symbicort 160/4.5mcg -) 2 puff IH BID [facility] Last Admin: 07/22/19 09:56 Dose: 2 puff Carvedilol (Coreg -) 3.125 mg PO BID [facility] Last Admin: 07/22/19 09:53 Dose: 3.125 mg Donepezil HCl (Aricept -) 10 mg PO HS [facility] Last Admin: 07/21/19 21:09 Dose: 10 mg Heparin Sodium (Porcine) (Heparin -) 5,000 unit SQ BID [facility] Last Admin: 07/22/19 09:53 Dose: 5,000 unit Hydralazine HCl (Apresoline -) 50 mg PO TID [facility] Last Admin: 07/22/19 05:24 Dose: 50 mg Insulin Aspart (Novolog Vial Sliding Scale -) 1 vial SQ ACHS [facility]; Protocol Last Admin: 07/22/19 06:58 Dose: Not Given Pantoprazole Sodium (Protonix -) 40 mg PO DAILY [facility] Last Admin: 07/22/19 09:55 Dose: 40 mg Polyethylene Glycol/Electrolytes (Golytely Solution -) 4,000 ml PO ONCE ONE Stop: 07/22/19 15:01 Potassium Chloride (Potassium Chloride Oral Liquid) 40 meq PO BID [facility] Last Admin: 07/22/19 09:54 Dose: 40 meq Torsemide (Demadex -) 20 mg PO BID@0600,1800 [facility] - Objective Vital Signs: Vital Signs Temperature 98.1 F 07/22/19 09:41 Pulse Rate 74 07/22/19 09:41 Respiratory Rate 20 07/22/19 09:41 Blood Pressure 144/68 07/22/19 09:41 O2 Sat by Pulse Oximetry (%) 95 07/21/19 21:00 Constitutional: Yes: No Distress, Calm Neck: Yes: Supple Cardiovascular: Yes: Regular Rate and Rhythm Respiratory: Yes: Regular, Diminished, On Nasal O2 Gastrointestinal: Yes: Normal Bowel Sounds, Soft, Abdomen, Obese Edema: No Labs: CBC, BMP 07/22/19 05:35 07/22/19 05:35 INR, PTT INR 1.02 (0.83-1.09) 07/17/19 00:40 - ....Imaging EKG: Report Reviewed (Tele: NSR) Problem List - Problems (1) CKD (chronic kidney disease) Code(s): N18.9 - CHRONIC KIDNEY DISEASE, UNSPECIFIED (2) Respiratory failure with hypoxia Code(s): J96.91 - RESPIRATORY FAILURE, UNSPECIFIED WITH HYPOXIA Qualifiers: Chronicity: acute on chronic Qualified Code(s): J96.21 - Acute and chronic respiratory failure with hypoxia (3) Shortness of breath Code(s): R06.02 - SHORTNESS OF BREATH (4) HTN (hypertension) Code(s): I10 - ESSENTIAL (PRIMARY) HYPERTENSION (5) Hypercholesteremia Code(s): E78.00 - PURE HYPERCHOLESTEROLEMIA, UNSPECIFIED (6) Acute on chronic diastolic heart failure Code(s): I50.33 - ACUTE ON CHRONIC DIASTOLIC (CONGESTIVE) HEART FAILURE Assessment/Plan 07/17/2019 Echo: Mild cLVH, normal LV and RV size and fxn, mod LAE, mild MR, AR 1. Shortness of breath due to acute on chronic LV diastolic failure (HFpEF) with subendocardial ischemia resolving 2. COPD 3. OSAS suspect 4. HTN 5. Hypercholesterolemia 6. Cerebrovascular disease 7. History of diverticulitis 8. Organic brain/dementia 9. Acute on CKD improving 10. Fe-deficient anemia likely referable to gastric angioectasias PLAN: 1. Changed to oral diuresis (Demadex 20 bid) with monitoring diuretic response, renal function and electrolytes 2. Continue Carvedilol 3.125 mg BID, Norvasc 5 qd, Lipitor 80 qhs and Hydralazine 50 mg TID as tolerated 3. Eliquis held prior to endoscopy, transfuse to maintain Hgb>8.0. D/w resident team, per their conversation with Dr. Rayo he had d/you Eliquis, so will need to assess whether she can be started on ASA for CVD per GI recs, continue PPI 4. BD, O2 as needed, formal OSAS evaluation after discharge 5. Plan for EGD/colonoscopy Monday 07/23, may proceed as euvolemia achieved 6. OOB to chair, PT as tolerated
[2019-07-22] MEDS ORDERED: BISACODYL 5 MG TABLET.DR (FP) PO ONE (13:00)
[2019-07-22] MEDS ORDERED: PEG 3350/NA SULF BICARB CL/KCL 4000 ML SOLN.RECON PO ONE (15:00)
--- NOTE | 2019-07-22 15:36 | PN ---
Teaching Attending Note Name of Resident: Marcelle Stark ATTENDING PHYSICIAN STATEMENT I saw and evaluated the patient. I reviewed the resident's note and discussed the case with the resident. I agree with the resident's findings and plan as documented. SUBJECTIVE: Patient seen and examined at bedside CLD then NPO past midnight for EGD/Colonoscopy Hb stable Creatinine bumped up to 1.4 UCx with ESBL will not treat as patient is asymptomatic OBJECTIVE: Constitutional: Yes: Well Nourished, No Distress, Obese, Other (able to ambulate to abthroom) Eyes: Yes: Other (Conjunctival pallor) HENT: Yes: Atraumatic, Normocephalic Neck: Yes: Supple Cardiovascular: Yes: Regular Rate and Rhythm Respiratory: Yes: WNL, Regular, CTA Bilaterally. No: Rales Gastrointestinal: Yes: Soft. No: Distention, Tenderness Edema: Yes Edema: LLE: 1+, RLE: 1+ Neurological: Yes: Alert, Oriented ASSESSMENT AND PLAN: 68 year old female with multiple medical problems including diastolic CHF, HTN, HLD, morbid obesity, asthma/bronchitis, presents with dyspnea and anemia. Acute hypoxic/hypercapneic respiratory failure Acute on chronic diastolic heart failure exacerbation Uncontrolled HTN Elevated troponin, suspect demand mediated type II NSTEMI from above, rather than ACS MARISOL, suspect cardiorenal. H/o PAF Anemia, ?Acute vs chronic, Asthma/Bronchitis, do not suspect in exacerbation or infectious process HTN HLD Morbid obesity Suspected TREY Plan: Start home dose of torsemide today monitor I/O daily weights cardiology consult noted appreciated pulmonary consult noted and appreciated Bipap if needed Continue coreg/hydralazine/amlodipine. s/p 1 unit PRBC 4 days ago H/H stable at 8.3 today Patient for EGD/Colonoscopy tomorrow. cardiology recs noted. Continue to hold eliquis for now as patient has not been on it. If has recurrent A fib will need to reconsider anticoagulation Hold aspirin per cardiology will need outpatient sleep study. GI consult noted and appreciated -CLD today and NPO past midnight tonight for EGD/colonoscopy tomorrow HSQ for DVT PPx Protonix for GI PPx PT consult to avoid deconditioning No cardiopulmonary contraindication for EGD/Colonoscopy at this time
[2019-07-22] MEDS: ATORVASTATIN CA 40 MG TABLET (FP) PO SCH (22:01)
[2019-07-22] MEDS: DONEPEZIL HCL 10 MG TABLET (FP) PO SCH (22:02)
[2019-07-23] MEDS: TORSEMIDE 20 MG TABLET (FP) PO SCH ×2 (06:03→18:19)
[2019-07-23] MEDS: hydrALAZINE HCL 25 MG TABLET (FP) PO SCH ×3 (06:03→22:06)
[2019-07-23 06:36] LABS: BASO % 1.2 % (0-2.0); EOS % 3.7 % (0-4.5); HEMATOCRIT 26.8 % (32.4-45.2); HEMOGLOBIN 8.7 GM/dL (10.7-15.3); LYMPH % 23.8 % (8-40); MCH 24.8 pg (25.7-33.7); MCHC 32.4 g/dl (32.0-36.0); MEAN CELL VOLUME 76.6 fl (80-96); MEAN PLT VOLUME 9.1 fl (7.5-11.1); NEUT % 63.3 % (42.8-82.8); PLATELET COUNT 329 K/MM3 (134-434); RDW 20.1 % (11.6-15.6); WHITE BLOOD COUNT 7.7 K/mm3 (4.0-10.0)
[2019-07-23 07:12] LABS: ALBUMIN 3.2 g/dl (3.4-5.0); BILIRUBIN,TOTAL 0.7 mg/dL (0.2-1); BLOOD UREA NITROGEN 17.1 mg/dL (7-18); CREATININE 1.2 mg/dL (0.55-1.3); MAGNESIUM 2.5 mg/dL (1.8-2.4); PHOSPHOROUS 3.3 mg/dL (2.5-4.9); POTASSIUM 4.6 mmol/L (3.5-5.1); TOT PROT 7.3 g/dl (6.4-8.2)
--- NOTE | 2019-07-23 09:14 | PN ---
Progress Note, Physician History of Present Illness: Dyspnea improving weaned onto NC. OOB in chair. She has started Golytely prep. - Current Medication List Current Medications: Active Medications Amlodipine Besylate (Norvasc -) 5 mg PO DAILY [facility] Last Admin: 07/22/19 09:54 Dose: 5 mg Atorvastatin Calcium (Lipitor -) 80 mg PO HS [facility] Last Admin: 07/22/19 22:01 Dose: 80 mg Budesonide/Formoterol Fumarate (Symbicort 160/4.5mcg -) 2 puff IH BID [facility] Last Admin: 07/22/19 22:05 Dose: 2 puff Carvedilol (Coreg -) 3.125 mg PO BID [facility] Last Admin: 07/22/19 22:02 Dose: 3.125 mg Donepezil HCl (Aricept -) 10 mg PO HS [facility] Last Admin: 07/22/19 22:02 Dose: 10 mg Heparin Sodium (Porcine) (Heparin -) 5,000 unit SQ BID [facility] Last Admin: 07/22/19 22:05 Dose: Not Given Hydralazine HCl (Apresoline -) 50 mg PO TID [facility] Last Admin: 07/23/19 06:03 Dose: 50 mg Pantoprazole Sodium (Protonix -) 40 mg PO DAILY [facility] Last Admin: 07/22/19 09:55 Dose: 40 mg Potassium Chloride (Potassium Chloride Oral Liquid) 40 meq PO BID [facility] Last Admin: 07/22/19 22:02 Dose: 40 meq Torsemide (Demadex -) 20 mg PO BID@0600,1800 [facility] Last Admin: 07/23/19 06:03 Dose: 20 mg - Objective Vital Signs: Vital Signs Temperature 97.3 F L 07/23/19 06:08 Pulse Rate 74 07/23/19 06:08 Respiratory Rate 20 07/23/19 06:08 Blood Pressure 161/68 07/23/19 06:08 O2 Sat by Pulse Oximetry (%) 100 07/22/19 21:00 Labs: CBC, BMP 07/23/19 05:10 07/23/19 05:10 INR, PTT INR 1.02 (0.83-1.09) 07/17/19 00:40 Problem List - Problems (1) CKD (chronic kidney disease) Code(s): N18.9 - CHRONIC KIDNEY DISEASE, UNSPECIFIED (2) Respiratory failure with hypoxia Code(s): J96.91 - RESPIRATORY FAILURE, UNSPECIFIED WITH HYPOXIA Qualifiers: Chronicity: acute on chronic Qualified Code(s): J96.21 - Acute and chronic respiratory failure with hypoxia (3) Shortness of breath Code(s): R06.02 - SHORTNESS OF BREATH (4) HTN (hypertension) Code(s): I10 - ESSENTIAL (PRIMARY) HYPERTENSION (5) Hypercholesteremia Code(s): E78.00 - PURE HYPERCHOLESTEROLEMIA, UNSPECIFIED (6) Acute on chronic diastolic heart failure Code(s): I50.33 - ACUTE ON CHRONIC DIASTOLIC (CONGESTIVE) HEART FAILURE Assessment/Plan 07/17/2019 Echo: Mild cLVH, normal LV and RV size and fxn, mod LAE, mild MR, AR 1. Shortness of breath due to acute on chronic LV diastolic failure (HFpEF) with subendocardial ischemia resolving 2. COPD 3. OSAS suspect 4. HTN 5. Hypercholesterolemia 6. Cerebrovascular disease 7. History of diverticulitis 8. Organic brain/dementia 9. Acute on CKD improving 10. Fe-deficient anemia likely referable to gastric angioectasias PLAN: 1. Changed to oral diuresis (Demadex 20 bid) with monitoring diuretic response, renal function and electrolytes 2. Continue Carvedilol 3.125 mg BID, Norvasc 5 qd, Lipitor 80 qhs and Hydralazine 50 mg TID as tolerated 3. Eliquis held prior to endoscopy, transfuse to maintain Hgb>8.0. D/w resident team, per their conversation with Dr. Rayo he had d/you Eliquis, so will need to assess whether she can be started on ASA for CVD per GI recs, continue PPI 4. BD, O2 as needed, formal OSAS evaluation after discharge 5. Plan for EGD/colonoscopy today, may proceed as euvolemia achieved 6. OOB to chair, PT as tolerated
[2019-07-23] MEDS: CARVEDILOL 3.125 MG TABLET (FP) PO SCH ×2 (10:08→22:06)
[2019-07-23] MEDS: HEPARIN NA (PORCINE) 5,000 UNITS/ML 1ML VIAL SQ SCH ×2 (10:09→22:08)
[2019-07-23] MEDS: POTASSIUM CHLORIDE ORAL LIQUID 20 MEQ/15 ML PO SCH ×2 (10:10→22:06)
[2019-07-23] MEDS: PANTOPRAZOLE 40 MG TABLET (FP) PO SCH (10:10)
[2019-07-23] MEDS: amLODIPine BESYLATE 5 MG TABLET (FP) PO SCH (10:10)
[2019-07-23] MEDS: BUDESONIDE/FORMETEROL FUMARATE 160/4.5 mcg INHALER IH SCH ×2 (10:11→22:06)
[2019-07-23] MEDS ORDERED: ETOMIDATE 20 MG/10 ML AMPUL IVPUSH ONE (11:21)
--- NOTE | 2019-07-23 14:21 | PN ---
Teaching Attending Note Name of Resident: Matt Hall ATTENDING PHYSICIAN STATEMENT I saw and evaluated the patient. I reviewed the resident's note and discussed the case with the resident. I agree with the resident's findings and plan as documented. SUBJECTIVE: Patient has no complaints. OBJECTIVE: Vital Signs Period Temp Pulse Resp BP Sys/Christensen Pulse Ox Last 24 Hr 97.3 F-98.1 F 71-83 14-20 131-161/52-89 95-100 HEART: S1S2, RRR LUNGS: Clear ABDOMEN: Obese, soft, non-tender, non-distended, normal BS EXTREMITIES: No edema Laboratory Results - last 24 hr 07/23/19 07/23/19 05:10 05:10 WBC 7.7 RBC 3.50 L Hgb 8.7 L Hct 26.8 L MCV 76.6 L MCH 24.8 L MCHC 32.4 RDW 20.1 H Plt Count 329 MPV 9.1 Absolute Neuts (auto) 4.8 Neutrophils % 63.3 Lymphocytes % 23.8 Monocytes % 8.0 Eosinophils % 3.7 Basophils % 1.2 Nucleated RBC % 0 Sodium 139 Potassium 4.6 Chloride 102 Carbon Dioxide 29 Anion Gap 8 BUN 17.1 Creatinine 1.2 Est GFR (CKD-EPI)AfAm 53.03 Est GFR (CKD-EPI)NonAf 45.75 Random Glucose 92 Calcium 9.0 Phosphorus 3.3 Magnesium 2.5 H Total Bilirubin 0.7 AST 16 ALT 14 Alkaline Phosphatase 105 Total Protein 7.3 Albumin 3.2 L Current Medications Generic Name Dose Route Start Last Admin Trade Name Freq PRN Reason Stop Dose Admin Amlodipine Besylate 5 mg 07/17/19 10:00 07/23/19 10:10 Norvasc - PO 5 mg DAILY ARA Administration Atorvastatin Calcium 80 mg 07/17/19 22:00 07/22/19 22:01 Lipitor - PO 80 mg HS ARA Administration Budesonide/Formoterol Fumarate 2 puff 07/19/19 22:00 07/23/19 10:11 Symbicort 160/4.5mcg - IH 2 puff BID ARA Administration Carvedilol 3.125 mg 07/17/19 22:00 07/23/19 10:08 Coreg - PO 3.125 mg BID ARA Administration Donepezil HCl 10 mg 07/17/19 22:00 07/22/19 22:02 Aricept - PO 10 mg HS ARA Administration Heparin Sodium (Porcine) 5,000 unit 07/19/19 22:00 07/23/19 10:09 Heparin - SQ Not Given BID ARA Hydralazine HCl 50 mg 07/17/19 22:00 07/23/19 06:03 Apresoline - PO 50 mg TID ARA Administration Pantoprazole Sodium 40 mg 07/19/19 18:45 07/23/19 10:10 Protonix - PO Not Given DAILY ARA Potassium Chloride 40 meq 07/20/19 15:13 07/23/19 10:10 Potassium Chloride Oral Liquid PO Not Given BID ARA Torsemide 20 mg 07/23/19 06:00 07/23/19 06:03 Demadex - PO 20 mg BID@0600,1800 ARA Administration ASSESSMENT AND PLAN: This is a 68 year old woman with a history of chronic diastolic heart failure, HTN, hyperlipidemia, morbid obesity, asthma/COPD, anemia, dementia who presented to the ED with SOB. 1. Acute hypoxic respiratory failure secondary to acute diastolic heart failure - Improved - On oral torsemide - Oxygen to maintain saturation >90% - BiPAP as needed 2. Demand ischemia 3. Asthma/COPD - Stable - Continue Symbicort 4. Chronic diastolic heart failure 5. Anemia, iron deficiency - Transfused 1 unit PRBCs 07/18 - Continue Protonix - Aspirin held - EGD, colonoscopy today 6. HTN - Continue Norvasc, Coreg, Hydralazine, torsemide 7. Hyperlipidemia - Continue Lipitor 8. Dementia - Continue Aricept 9. Stage 3 CKD - Stable 10. Morbid obesity with BMI 41.5 11. Probable TREY - Outpatient pulmonary follow-up, sleep study
--- NOTE | 2019-07-23 16:16 | PN ---
Physical Exam: SUBJECTIVE: Patient seen and examined. O/N: tolerated Golytely, endorses appetite Tolerated the c-scope but complains that she is missing a tooth in the middle lower jaw. Endorse disappointment that she cannot eat as GI rec a rpt cscope due to inadequate prep. Denies SOB, cough. Breathing comfortably on RA. OBJECTIVE: Vital Signs Period Temp Pulse Resp BP Sys/Christensen Pulse Ox Last 24 Hr 97.3 F-98.1 F 71-83 14-20 131-161/52-89 95-100 GENERAL: The patient is awake, alert. NAD HEAD: Normal with no signs of trauma. EYES: sclera anicteric, conjunctival pallor. ENT: Ears normal, nares patent, moist mucous membranes. Missing tooth at midline lower jaw. NECK: Trachea midline, full range of motion, supple. LUNGS: CTA b/l, no accessory muscle use. Breathing on RA HEART: Regular rate and rhythm, S1, S2 without murmur, rub or gallop. ABDOMEN: Soft, nontender, nondistended, no guarding, no rebound. EXTREMITIES: 2+ pulses, warm, well-perfused, 1+ edema to BLE NEUROLOGICAL: Normal speech PSYCH: Normal mood, normal affect. SKIN: Warm, dry, normal turgor, no rashes or lesions noted Laboratory Results - last 24 hr 07/23/19 07/23/19 05:10 05:10 WBC 7.7 RBC 3.50 L Hgb 8.7 L Hct 26.8 L MCV 76.6 L MCH 24.8 L MCHC 32.4 RDW 20.1 H Plt Count 329 MPV 9.1 Absolute Neuts (auto) 4.8 Neutrophils % 63.3 Lymphocytes % 23.8 Monocytes % 8.0 Eosinophils % 3.7 Basophils % 1.2 Nucleated RBC % 0 Sodium 139 Potassium 4.6 Chloride 102 Carbon Dioxide 29 Anion Gap 8 BUN 17.1 Creatinine 1.2 Est GFR (CKD-EPI)AfAm 53.03 Est GFR (CKD-EPI)NonAf 45.75 Random Glucose 92 Calcium 9.0 Phosphorus 3.3 Magnesium 2.5 H Total Bilirubin 0.7 AST 16 ALT 14 Alkaline Phosphatase 105 Total Protein 7.3 Albumin 3.2 L Active Medications Generic Name Dose Route Start Last Admin Trade Name Freq PRN Reason Stop Dose Admin Amlodipine Besylate 5 mg 07/17/19 10:00 07/23/19 10:10 Norvasc - PO 5 mg DAILY ARA Administration Atorvastatin Calcium 80 mg 07/17/19 22:00 07/22/19 22:01 Lipitor - PO 80 mg HS ARA Administration Bisacodyl 20 mg 07/23/19 15:33 Dulcolax - PO 07/23/19 15:34 ONCE ONE Budesonide/Formoterol Fumarate 2 puff 07/19/19 22:00 07/23/19 10:11 Symbicort 160/4.5mcg - IH 2 puff BID ARA Administration Carvedilol 3.125 mg 07/17/19 22:00 07/23/19 10:08 Coreg - PO 3.125 mg BID ARA Administration Donepezil HCl 10 mg 07/17/19 22:00 07/22/19 22:02 Aricept - PO 10 mg HS ARA Administration Heparin Sodium (Porcine) 5,000 unit 07/19/19 22:00 07/23/19 10:09 Heparin - SQ Not Given BID ARA Hydralazine HCl 50 mg 07/17/19 22:00 07/23/19 06:03 Apresoline - PO 50 mg TID ARA Administration Pantoprazole Sodium 40 mg 07/19/19 18:45 07/23/19 10:10 Protonix - PO Not Given DAILY ARA Polyethylene Glycol/Electrolytes 4,000 ml 07/23/19 15:33 Golytely Solution - PO 07/23/19 15:34 ONCE ONE Potassium Chloride 40 meq 07/20/19 15:13 07/23/19 10:10 Potassium Chloride Oral Liquid PO Not Given BID ARA Torsemide 20 mg 07/23/19 06:00 07/23/19 06:03 Demadex - PO 20 mg BID@0600,1800 ARA Administration ASSESSMENT/PLAN: 68 y.o. F PMH asthma/ COPD, diastolic CHF pEF, HTN, HLD, dementia presenting from home d/t SOB. #Acute HFpEF exacerbation >BNP(07/17/19) ~1959.6 >troponin 0.05 ->0.06 -> 0.07 -> 0.07 >Echo(07/17/19): LV is normal, mild LVH >CTA(07/17/19): neg AAA, neg PE, trace pleural effusion >EKG shows sinus tachy, QTc 530 >EKG(07/18/19): NSR, QTc 483 -Lasix 40mg IV BID -Solumedrol IV 40mg q6h -- dc'd -Is & Os -Daily weights -Cardio consulted (Dr. Rosado) #SOB 2/2 to HFrEF >CXR(07/18/19): cardiomegaly, fullness of eduarda, no gross infiltrate >ABG(07/17/19): 7.42/37.1/116/23.6/98.5/-0.2 on BiPAP >ABG(07/18/19): 7.46/39.3/70.9/27.7/93.9/4.1 on 4L NC -Doxycycline & rocephin for abx coverage-- recent sick contact-- dc'd -BIPAP PRN and QHS -Pulm consulted-- Dr. 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 Montgomery -- hold A/C -- Daily Protonix 40mg -- EGD(07/23/19): sliding hiatal hernia; missing tooth -- CXR(07/23/19): no radioopaque FB -- c-scope(07/23/19): polyps at rectum and hepatic flexure, inadequate bowel prep; rec repeat cscope at 07/24/19 -Eliquis rceently d/c'd-- pt was not on eliquis 2017 --as per Sports Information Director(Dr Mir Mims) TTE(March 2019) showed thrombus x2 of RA, but then Dave MENA(April 2019) showed no thrombus -- Tigre millan'd #CPOD -cw home budesonide/Formeterol -supplemental O2 PRN -will assess Pre and Post O2 prior to discharge #MARISOL --improving >HbA1c 5.1 >Cr(baseline ~1): 1.5 -> 1.4 --> 1.2 -encourage PO hydration #UTI -- >UA(07/17/19): neg nitrite, 1+ LE, WBC 14, Bact 184.5 >UCX(07/17/19): contaminated -- rpt(07/20/19): ESBL 70-80k CFU #HTN -home meds: hydralazine, carvedilol, amlodipine #HLD -C/w atorvastatin 80mg daily #Dementia -C/w donepezil #FEN -trend lytes -Clear Liquid diet #PPX DVT: SCDS, SQHep BID Visit type - Emergency Visit Emergency Visit: No - New Patient This patient is new to me today: No - Critical Care Critical Care patient: No ATTENDING PHYSICIAN STATEMENT I saw and evaluated the patient. I reviewed the resident's note and discussed the case with the resident. I agree with the resident's findings and plan as documented. SUBJECTIVE: OBJECTIVE: ASSESSMENT AND PLAN:
[2019-07-23] MEDS ORDERED: PEG 3350/NA SULF BICARB CL/KCL 4000 ML SOLN.RECON PO ONE (16:30)
[2019-07-23] MEDS ORDERED: BISACODYL 5 MG TABLET.DR (FP) PO ONE (16:30)
--- NOTE | 2019-07-23 18:26 | PN ---
Progress Note, Physician Chief Complaint: Events noted Post EGD History of Present Illness: Patient was seen and examined. Awake and alert. Chart was reviewed Denies chest pain, SOB or palpitations - Current Medication List Current Medications: Active Medications Amlodipine Besylate (Norvasc -) 5 mg PO DAILY [facility] Last Admin: 07/23/19 10:10 Dose: 5 mg Atorvastatin Calcium (Lipitor -) 80 mg PO HS [facility] Last Admin: 07/22/19 22:01 Dose: 80 mg Budesonide/Formoterol Fumarate (Symbicort 160/4.5mcg -) 2 puff IH BID [facility] Last Admin: 07/23/19 10:11 Dose: 2 puff Carvedilol (Coreg -) 3.125 mg PO BID [facility] Last Admin: 07/23/19 10:08 Dose: 3.125 mg Donepezil HCl (Aricept -) 10 mg PO HS [facility] Last Admin: 07/22/19 22:02 Dose: 10 mg Heparin Sodium (Porcine) (Heparin -) 5,000 unit SQ BID [facility] Last Admin: 07/23/19 10:09 Dose: Not Given Hydralazine HCl (Apresoline -) 50 mg PO TID [facility] Last Admin: 07/23/19 16:24 Dose: 50 mg Pantoprazole Sodium (Protonix -) 40 mg PO DAILY [facility] Last Admin: 07/23/19 10:10 Dose: Not Given Potassium Chloride (Potassium Chloride Oral Liquid) 40 meq PO BID [facility] Last Admin: 07/23/19 10:10 Dose: Not Given Torsemide (Demadex -) 20 mg PO BID@0600,1800 [facility] Last Admin: 07/23/19 06:03 Dose: 20 mg - Objective Vital Signs: Vital Signs Temperature 98.4 F 07/23/19 15:07 Pulse Rate 84 07/23/19 15:07 Respiratory Rate 20 07/23/19 15:07 Blood Pressure 140/62 07/23/19 15:07 O2 Sat by Pulse Oximetry (%) 99 07/23/19 12:47 Eyes: Yes: PERRL HENT: Yes: Atraumatic Neck: Yes: Supple Cardiovascular: Yes: Regular Rate and Rhythm, S1, S2 Respiratory: Yes: Diminished Gastrointestinal: Yes: Normal Bowel Sounds, Soft. No: Tenderness Edema: No Additional Findings/Remarks: - Review of Systems Constitutional: denies: Chills, Fever Cardiovascular: reports: Shortness of Breath. denies: Chest Pain, Palpitations Respiratory: reports: Cough, SOB, SOB on Exertion. denies: Hemoptysis, Orthopnea, PND, Wheezing Gastrointestinal: denies: Abdominal Pain, Constipation, Diarrhea, Melena, Nausea , Rectal Bleeding, Vomiting Genitourinary: denies: Dysuria, Hematuria Musculoskeletal: denies: Back Pain, Joint Pain Neurological: denies: Dizziness, Headache, Seizure, Syncope Labs: CBC, BMP 07/23/19 05:10 07/23/19 05:10 Problem List - Problems (1) Cerebrovascular disease Code(s): I67.9 - CEREBROVASCULAR DISEASE, UNSPECIFIED (2) CKD (chronic kidney disease) Code(s): N18.9 - CHRONIC KIDNEY DISEASE, UNSPECIFIED (3) Shortness of breath Code(s): R06.02 - SHORTNESS OF BREATH (4) COPD with exacerbation Code(s): J44.1 - CHRONIC OBSTRUCTIVE PULMONARY DISEASE W (ACUTE) EXACERBATION (5) Respiratory failure with hypoxia Code(s): J96.91 - RESPIRATORY FAILURE, UNSPECIFIED WITH HYPOXIA Qualifiers: Chronicity: acute on chronic Qualified Code(s): J96.21 - Acute and chronic respiratory failure with hypoxia (6) Dementia Code(s): F03.90 - UNSPECIFIED DEMENTIA WITHOUT BEHAVIORAL DISTURBANCE (7) HTN (hypertension) Code(s): I10 - ESSENTIAL (PRIMARY) HYPERTENSION (8) Hypercholesteremia Code(s): E78.00 - PURE HYPERCHOLESTEROLEMIA, UNSPECIFIED (9) TIA (transient ischemic attack) Code(s): G45.9 - TRANSIENT CEREBRAL ISCHEMIC ATTACK, UNSPECIFIED Assessment/Plan 1. Shortness of breath due to acute on chronic LV diastolic failure (HFpEF) 2. COPD exacerbation 3. HTN 4. Hypercholesterolemia 5. Cerebrovascular disease 6. History of diverticulitis, Iron deficient anemia 7. Organic brain/dementia 8. CKD PLAN: 1. Continue current medical therapy including Carvedilol 3.125 mg BID, Amlodipine 5 mg QD, Hydralazine 50 mg TID and Lipitor 80 mg QHS 2. Diuretic (Demadex) with monitoring renal function and electrolytes 3. Bronchodilator, O2, BIPAP and antibiotic coverage 4. As outlined regarding Tigre, currently no on it and was stopped by Dr, Greif but will needed to assess whether she can be started on ASA instead if cleared by GI 5. GI work up in progress Further plans are to follow Harvinder Staples MD
[2019-07-23] MEDS: ATORVASTATIN CA 40 MG TABLET (FP) PO SCH (22:06)
[2019-07-23] MEDS: DONEPEZIL HCL 10 MG TABLET (FP) PO SCH (22:06)
[2019-07-24] MEDS: TORSEMIDE 20 MG TABLET (FP) PO SCH ×2 (06:53→17:08)
[2019-07-24] MEDS: hydrALAZINE HCL 25 MG TABLET (FP) PO SCH ×3 (06:53→21:03)
[2019-07-24 07:24] LABS: HEMATOCRIT 29.1 % (32.4-45.2); HEMOGLOBIN 9.2 GM/dL (10.7-15.3); MCH 24.3 pg (25.7-33.7); MCHC 31.7 g/dl (32.0-36.0); MEAN CELL VOLUME 76.5 fl (80-96); MEAN PLT VOLUME 9.2 fl (7.5-11.1); PLATELET COUNT 347 K/MM3 (134-434); RBC 3.81 M/mm3 (3.60-5.2); RDW 20.2 % (11.6-15.6); WHITE BLOOD COUNT 7.8 K/mm3 (4.0-10.0)
[2019-07-24 07:44] LABS: BLOOD UREA NITROGEN 15.4 mg/dL (7-18); CALCIUM 9.2 mg/dL (8.5-10.1); CREATININE 1.4 mg/dL (0.55-1.3); MAGNESIUM 2.4 mg/dL (1.8-2.4); PHOSPHOROUS 4.4 mg/dL (2.5-4.9); POTASSIUM 4.5 mmol/L (3.5-5.1)
[2019-07-24] MEDS: BUDESONIDE/FORMETEROL FUMARATE 160/4.5 mcg INHALER IH SCH ×2 (10:12→21:04)
--- NOTE | 2019-07-24 11:01 | PN ---
Progress Note, Physician History of Present Illness: PULMONARY ALERT,NO DISTRESS,-SOB,-[place] - Current Medication List Current Medications: Active Medications Amlodipine Besylate (Norvasc -) 5 mg PO DAILY [facility] Last Admin: 07/23/19 10:10 Dose: 5 mg Atorvastatin Calcium (Lipitor -) 80 mg PO HS [facility] Last Admin: 07/23/19 22:06 Dose: 80 mg Budesonide/Formoterol Fumarate (Symbicort 160/4.5mcg -) 2 puff IH BID [facility] Last Admin: 07/23/19 22:06 Dose: 2 puff Carvedilol (Coreg -) 3.125 mg PO BID [facility] Last Admin: 07/23/19 22:06 Dose: 3.125 mg Donepezil HCl (Aricept -) 10 mg PO HS [facility] Last Admin: 07/23/19 22:06 Dose: 10 mg Heparin Sodium (Porcine) (Heparin -) 5,000 unit SQ BID [facility] Last Admin: 07/23/19 22:08 Dose: Not Given Hydralazine HCl (Apresoline -) 50 mg PO TID [facility] Last Admin: 07/24/19 06:53 Dose: 50 mg Pantoprazole Sodium (Protonix -) 40 mg PO DAILY [facility] Last Admin: 07/23/19 10:10 Dose: Not Given Potassium Chloride (Potassium Chloride Oral Liquid) 40 meq PO BID [facility] Last Admin: 07/23/19 22:06 Dose: 40 meq Torsemide (Demadex -) 20 mg PO BID@0600,1800 [facility] Last Admin: 07/24/19 06:53 Dose: 20 mg - Objective Vital Signs: Vital Signs Temperature 98.4 F 07/24/19 06:00 Pulse Rate 75 07/24/19 06:00 Respiratory Rate 20 07/24/19 06:00 Blood Pressure 132/64 07/24/19 06:00 O2 Sat by Pulse Oximetry (%) 99 07/23/19 21:00 Constitutional: Yes: Calm, Obese Eyes: Yes: WNL HENT: Yes: WNL Neck: Yes: WNL Cardiovascular: Yes: Regular Rate and Rhythm, S1, S2 Respiratory: Yes: Diminished Gastrointestinal: Yes: Normal Bowel Sounds, Soft Extremities: Yes: WNL Edema: No Labs: CBC, BMP 07/24/19 05:20 07/24/19 05:20 INR, PTT INR 1.02 (0.83-1.09) 07/17/19 00:40 Assessment/Plan Problem List - Problems (1) Dyspnea Code(s): R06.00 - DYSPNEA, UNSPECIFIED (2) Decompensated heart failure Code(s): I50.9 - HEART FAILURE, UNSPECIFIED (3) Morbid obesity Code(s): E66.01 - MORBID (SEVERE) OBESITY DUE TO EXCESS CALORIES (4) CKD (chronic kidney disease) Code(s): N18.9 - CHRONIC KIDNEY DISEASE, UNSPECIFIED (5) Respiratory failure with hypoxia Code(s): J96.91 - RESPIRATORY FAILURE, UNSPECIFIED WITH HYPOXIA Qualifiers: Chronicity: acute Qualified Code(s): J96.01 - Acute respiratory failure with hypoxia (6) Shortness of breath Code(s): R06.02 - SHORTNESS OF BREATH (7) Dementia Code(s): F03.90 - UNSPECIFIED DEMENTIA WITHOUT BEHAVIORAL DISTURBANCE (8) HTN (hypertension) Code(s): I10 - ESSENTIAL (PRIMARY) HYPERTENSION 9 SEVERE ANEMIA Assessment/Plan IMP: Do not suspect AE of Obstructive Airways Disease Do not suspect Respiratory Tract infection Probable OSAS Anemia Acute on chronic chf improved PLAN: BD TX PRN O2 as needed Will need formal OSAS evaluation after discharge Diuretics Daily weight Monitor h+h normal transfusion threshold no pulmonary contraindication for repeat colonoscopy DR LAYNE
[2019-07-24] MEDS: HEPARIN NA (PORCINE) 5,000 UNITS/ML 1ML VIAL SQ SCH (12:09)
[2019-07-24] MEDS: CARVEDILOL 3.125 MG TABLET (FP) PO SCH ×2 (12:09→21:03)
[2019-07-24] MEDS: POTASSIUM CHLORIDE ORAL LIQUID 20 MEQ/15 ML PO SCH ×2 (12:10→21:04)
[2019-07-24] MEDS: PANTOPRAZOLE 40 MG TABLET (FP) PO SCH (14:08)
[2019-07-24] MEDS: amLODIPine BESYLATE 5 MG TABLET (FP) PO SCH (14:09)
--- NOTE | 2019-07-24 14:29 | PN ---
Progress Note, Physician Chief Complaint: Events noted Await colonoscopy History of Present Illness: Patient was seen and examined. Awake and alert. Chart was reviewed Denies chest pain, SOB or palpitations - Current Medication List Current Medications: Active Medications Amlodipine Besylate (Norvasc -) 5 mg PO DAILY [facility] Last Admin: 07/23/19 10:10 Dose: 5 mg Atorvastatin Calcium (Lipitor -) 80 mg PO HS [facility] Last Admin: 07/23/19 22:06 Dose: 80 mg Budesonide/Formoterol Fumarate (Symbicort 160/4.5mcg -) 2 puff IH BID [facility] Last Admin: 07/23/19 22:06 Dose: 2 puff Carvedilol (Coreg -) 3.125 mg PO BID [facility] Last Admin: 07/23/19 22:06 Dose: 3.125 mg Donepezil HCl (Aricept -) 10 mg PO HS [facility] Last Admin: 07/23/19 22:06 Dose: 10 mg Heparin Sodium (Porcine) (Heparin -) 5,000 unit SQ BID [facility] Last Admin: 07/23/19 22:08 Dose: Not Given Hydralazine HCl (Apresoline -) 50 mg PO TID [facility] Last Admin: 07/24/19 06:53 Dose: 50 mg Pantoprazole Sodium (Protonix -) 40 mg PO DAILY [facility] Last Admin: 07/23/19 10:10 Dose: Not Given Potassium Chloride (Potassium Chloride Oral Liquid) 40 meq PO BID [facility] Last Admin: 07/23/19 22:06 Dose: 40 meq Torsemide (Demadex -) 20 mg PO BID@0600,1800 [facility] Last Admin: 07/24/19 06:53 Dose: 20 mg - Objective Vital Signs: Vital Signs Temperature 98.4 F 07/24/19 06:00 Pulse Rate 97 H 07/24/19 11:51 Respiratory Rate 20 07/24/19 06:00 Blood Pressure 132/64 07/24/19 06:00 O2 Sat by Pulse Oximetry (%) 97 07/24/19 11:51 Eyes: Yes: PERRL HENT: Yes: Atraumatic Neck: Yes: Supple Cardiovascular: Yes: Regular Rate and Rhythm, S1, S2. No: Murmur Respiratory: Yes: CTA Bilaterally Gastrointestinal: Yes: Normal Bowel Sounds, Soft. No: Tenderness Edema: No Additional Findings/Remarks: - Review of Systems Constitutional: denies: Chills, Fever Cardiovascular: reports: Shortness of Breath. denies: Chest Pain, Palpitations Respiratory: reports: Cough, SOB, SOB on Exertion. denies: Hemoptysis, Orthopnea, PND, Wheezing Gastrointestinal: denies: Abdominal Pain, Constipation, Diarrhea, Melena, Nausea , Rectal Bleeding, Vomiting Genitourinary: denies: Dysuria, Hematuria Musculoskeletal: denies: Back Pain, Joint Pain Neurological: denies: Dizziness, Headache, Seizure, Syncope Labs: CBC, BMP 07/24/19 05:20 07/24/19 05:20 Problem List - Problems (1) Cerebrovascular disease Code(s): I67.9 - CEREBROVASCULAR DISEASE, UNSPECIFIED (2) CKD (chronic kidney disease) Code(s): N18.9 - CHRONIC KIDNEY DISEASE, UNSPECIFIED (3) Shortness of breath Code(s): R06.02 - SHORTNESS OF BREATH (4) COPD with exacerbation Code(s): J44.1 - CHRONIC OBSTRUCTIVE PULMONARY DISEASE W (ACUTE) EXACERBATION (5) Respiratory failure with hypoxia Code(s): J96.91 - RESPIRATORY FAILURE, UNSPECIFIED WITH HYPOXIA Qualifiers: Chronicity: acute on chronic Qualified Code(s): J96.21 - Acute and chronic respiratory failure with hypoxia (6) Dementia Code(s): F03.90 - UNSPECIFIED DEMENTIA WITHOUT BEHAVIORAL DISTURBANCE (7) HTN (hypertension) Code(s): I10 - ESSENTIAL (PRIMARY) HYPERTENSION (8) Hypercholesteremia Code(s): E78.00 - PURE HYPERCHOLESTEROLEMIA, UNSPECIFIED (9) TIA (transient ischemic attack) Code(s): G45.9 - TRANSIENT CEREBRAL ISCHEMIC ATTACK, UNSPECIFIED Assessment/Plan 1. Shortness of breath due to acute on chronic LV diastolic failure (HFpEF) 2. COPD exacerbation 3. HTN 4. Hypercholesterolemia 5. Cerebrovascular disease 6. History of diverticulitis, Iron deficient anemia 7. Organic brain/dementia 8. CKD PLAN: 1. Continue current medical therapy including Carvedilol 3.125 mg BID, Amlodipine 5 mg QD, Hydralazine 50 mg TID and Lipitor 80 mg QHS 2. Diuretic (Demadex) with monitoring renal function and electrolytes 3. Bronchodilator, O2, BIPAP and antibiotic coverage 4. As outlined regarding Eliquis, currently not on it and was stopped by Perri Waite but will needed to assess whether she can be started on ASA instead if cleared by GI 5. GI work up in progress with planned colonoscopy today Further plans are to follow Harvinder Staples MD
--- NOTE | 2019-07-24 14:39 | PN ---
Teaching Attending Note Name of Resident: Matt Hall ATTENDING PHYSICIAN STATEMENT I saw and evaluated the patient. I reviewed the resident's note and discussed the case with the resident. I agree with the resident's findings and plan as documented. SUBJECTIVE: Feeling much better. SOB much improved. Ambulating with walker without symptoms. OBJECTIVE: Afebrile, Hemodynamically Stable. Last Vital Signs Temp Pulse Resp BP Pulse Ox 98.4 F 97 H 20 132/64 97 07/24/19 06:00 07/24/19 11:51 07/24/19 06:00 07/24/19 06:00 07/24/19 11:51 NEURO: AAO x 3. HEART: S1, S2, RRR LUNGS: Clear to auscultation ABDOMEN: High BMI. Soft, non-tender, non-distended, normal BS EXTREMITIES: Mild edema LEs. No calf tenderness. . Laboratory Results - last 24 hr 07/24/19 07/24/19 05:20 05:20 WBC 7.8 RBC 3.81 Hgb 9.2 L Hct 29.1 L MCV 76.5 L MCH 24.3 L MCHC 31.7 L RDW 20.2 H Plt Count 347 MPV 9.2 Sodium 139 Potassium 4.5 Chloride 101 Carbon Dioxide 30 Anion Gap 8 BUN 15.4 Creatinine 1.4 H Est GFR (CKD-EPI)AfAm 44.01 Est GFR (CKD-EPI)NonAf 37.97 Random Glucose 89 Calcium 9.2 Phosphorus 4.4 Magnesium 2.4 Current Medications Generic Name Dose Route Start Last Admin Trade Name Freq PRN Reason Stop Dose Admin Amlodipine Besylate 5 mg 07/17/19 10:00 07/23/19 10:10 Norvasc - PO 5 mg DAILY ARA Administration Atorvastatin Calcium 80 mg 07/17/19 22:00 07/23/19 22:06 Lipitor - PO 80 mg HS ARA Administration Budesonide/Formoterol Fumarate 2 puff 07/19/19 22:00 07/23/19 22:06 Symbicort 160/4.5mcg - IH 2 puff BID ARA Administration Carvedilol 3.125 mg 07/17/19 22:00 07/23/19 22:06 Coreg - PO 3.125 mg BID ARA Administration Donepezil HCl 10 mg 07/17/19 22:00 07/23/19 22:06 Aricept - PO 10 mg HS ARA Administration Heparin Sodium (Porcine) 5,000 unit 07/19/19 22:00 07/23/19 22:08 Heparin - SQ Not Given BID ARA Hydralazine HCl 50 mg 07/17/19 22:00 07/24/19 06:53 Apresoline - PO 50 mg TID ARA Administration Pantoprazole Sodium 40 mg 07/19/19 18:45 07/23/19 10:10 Protonix - PO Not Given DAILY ARA Potassium Chloride 40 meq 07/20/19 15:13 07/23/19 22:06 Potassium Chloride Oral Liquid PO 40 meq BID ARA Administration Torsemide 20 mg 07/23/19 06:00 07/24/19 06:53 Demadex - PO 20 mg BID@0600,1800 ARA Administration Home Medications Medication Instructions Recorded Aspirin 81 mg PO DAILY 02/21/13 Allopurinol [Zyloprim -] 100 mg PO DAILY 09/10/18 Donepezil HCl 10 mg PO HS 09/10/18 Apixaban [Eliquis] 5 mg PO BID 07/17/19 Calcium Carbonate [Calcium] 600 mg PO DAILY 07/17/19 Carvedilol [Coreg -] 3.125 mg PO BID 07/17/19 Ergocalciferol (Vitamin D2) 25 mcg PO DAILY 07/17/19 [Vitamin D2] Fluticasone Propion/Salmeterol 1 each IH BID 07/17/19 [Wixela 500-50 Inhub] Hydralazine HCl 50 mg PO TID 07/17/19 Pantoprazole Sodium 40 mg PO DAILY 07/17/19 Potassium 10 meq PO BID 07/17/19 Torsemide 20 mg PO BID 07/17/19 Atorvastatin Calcium 40 mg PO HS 07/18/19 Amlodipine Besylate [Norvasc -] 5 mg PO DAILY 30 Days #30 mg 07/24/19 Atorvastatin Ca [Lipitor] 80 mg PO HS tablet 07/24/19 Carvedilol [Coreg -] 3.125 mg PO BID tablet 07/24/19 hydrALAZINE HCL [Apresoline -] 50 mg PO TID tablet 07/24/19 ASSESSMENT AND PLAN: 68 year old female with a history of chronic diastolic heart failure, HTN, HLD, morbid obesity, Asthma/COPD, anemia, Dementia presented with SOB. 1. Acute Hypoxic respiratory failure secondary to acute diastolic heart failure CTA neg for PE SpO2 97% on RA - resp failure resolved. Continue Torsemide. BiPAP as required. 2 . Pneumonia - completed Abx course. Afebrile, Hemodynamically Stable. 3. Troponin egression sec to demand ischemia - further work up as per Cardiology. 4. Asthma/COPD - Stable. Continue Symbicort 5. Anemia, microcytic, sec to iron deficiency H/H 9.2/29.1 s/p 1 unit PRBCs s/p EGD - no source of bleeding identified s/p Colonoscopy - poor prep, polyps. ASA held pending repeat Colonoscopy. 6. HTN - Continue Norvasc, Coreg, Hydralazine, Torsemide 7. Hyperlipidemia - Continue Lipitor 8. Dementia - Continue Aricept 9. CKD 3 - Stable. Monitor on torsemide. 10. Probable TREY - BiPAP PRN - for outpatient pulmonary follow-up for spirometry and sleep study 11. ESBL EColi positive Urine Cx - asymptomatic. Afebrile, Hemodtynamically Stable without dysuria. Will hold further Abx therapy pending repeat Urine Cx. 12. Hx Cardiac Thrombus - previously on Eliquis - stopped prior to admission - now not on AC. DVT Px - Heparin held due to possible GI blood loss.
--- NOTE | 2019-07-24 15:02 | PN ---
Progress Note (short form) - Note Progress Note: Colonoscopy complete. Report left in procedural section of physical chart and will be scanned into [employer] Problem List - Problems (1) Anemia Code(s): D64.9 - ANEMIA, UNSPECIFIED Qualifiers: Anemia type: iron deficiency
--- NOTE | 2019-07-24 16:53 | PN ---
Physical Exam: SUBJECTIVE: Patient seen and examined NAEON. Yesterday, had a displaced lower jaw tooth during EGD/colonoscopy, CXR neg for FB Endorses improvement in SOB. Did not require BiPAP last night. No supplemental O2 needed. OBJECTIVE: Vital Signs Period Temp Pulse Resp BP Sys/Christensen Pulse Ox Last 24 Hr 97.4 F-98.4 F 70-97 18-20 115-150/51-76 97-100 GENERAL: The patient is awake, alert. NAD HEAD: Normal with no signs of trauma. EYES: sclera anicteric, mild conjunctival pallor. ENT: Ears normal, nares patent, moist mucous membranes. Missing tooth at midline lower jaw. NECK: Trachea midline, full range of motion, supple. LUNGS: CTA b/l, no accessory muscle use. Breathing comfortably on RA. Speaking in full sentences HEART: Regular rate and rhythm, S1, S2 without murmur, rub or gallop. ABDOMEN: Soft, nontender, nondistended, no guarding, no rebound. EXTREMITIES: 2+ pulses, warm, well-perfused, 1+ edema to BLE NEUROLOGICAL: Normal speech PSYCH: Normal mood, normal affect. SKIN: Warm, dry, normal turgor, no rashes or lesions noted Laboratory Results - last 24 hr 07/24/19 07/24/19 05:20 05:20 WBC 7.8 RBC 3.81 Hgb 9.2 L Hct 29.1 L MCV 76.5 L MCH 24.3 L MCHC 31.7 L RDW 20.2 H Plt Count 347 MPV 9.2 Sodium 139 Potassium 4.5 Chloride 101 Carbon Dioxide 30 Anion Gap 8 BUN 15.4 Creatinine 1.4 H Est GFR (CKD-EPI)AfAm 44.01 Est GFR (CKD-EPI)NonAf 37.97 Random Glucose 89 Calcium 9.2 Phosphorus 4.4 Magnesium 2.4 Active Medications Generic Name Dose Route Start Last Admin Trade Name Freq PRN Reason Stop Dose Admin Amlodipine Besylate 5 mg 07/17/19 10:00 07/23/19 10:10 Norvasc - PO 5 mg DAILY ARA Administration Atorvastatin Calcium 80 mg 07/17/19 22:00 07/23/19 22:06 Lipitor - PO 80 mg HS ARA Administration Budesonide/Formoterol Fumarate 2 puff 07/19/19 22:00 07/23/19 22:06 Symbicort 160/4.5mcg - IH 2 puff BID ARA Administration Carvedilol 3.125 mg 07/17/19 22:00 07/23/19 22:06 Coreg - PO 3.125 mg BID ARA Administration Donepezil HCl 10 mg 07/17/19 22:00 07/23/19 22:06 Aricept - PO 10 mg HS ARA Administration Heparin Sodium (Porcine) 5,000 unit 07/19/19 22:00 07/23/19 22:08 Heparin - SQ Not Given BID ARA Hydralazine HCl 50 mg 07/17/19 22:00 07/24/19 06:53 Apresoline - PO 50 mg TID ARA Administration Pantoprazole Sodium 40 mg 07/19/19 18:45 07/23/19 10:10 Protonix - PO Not Given DAILY ARA Potassium Chloride 40 meq 07/20/19 15:13 07/23/19 22:06 Potassium Chloride Oral Liquid PO 40 meq BID ARA Administration Torsemide 20 mg 07/23/19 06:00 07/24/19 06:53 Demadex - PO 20 mg BID@0600,1800 ARA Administration ASSESSMENT/PLAN: 68 y.o. F PMH asthma/ COPD, diastolic CHF pEF, HTN, HLD, dementia presenting from home d/t SOB. #Acute HFpEF exacerbation >BNP(07/17/19) ~1959.6 >troponin 0.05 ->0.06 -> 0.07 -> 0.07 >Echo(07/17/19): LV is normal, mild LVH >CTA(07/17/19): neg AAA, neg PE, trace pleural effusion >EKG shows sinus tachy, QTc 530 >EKG(07/18/19): NSR, QTc 483 -Lasix 40mg IV BID --> home Torsemide 20mg -Solumedrol IV 40mg q6h -- dc'd -Is & Os -Daily weights: 130kg at admission --> 120kg currently -Cardio consulted (Dr. Rosado) #SOB 2/2 to HFrEF >CXR(07/18/19): cardiomegaly, fullness of eduarda, no gross infiltrate >ABG(07/17/19): 7.42/37.1/116/23.6/98.5/-0.2 on BiPAP >ABG(07/18/19): 7.46/39.3/70.9/27.7/93.9/4.1 on 4L NC -Doxycycline & rocephin for abx coverage-- recent sick contact-- dc'd -BIPAP PRN and QHS -Pulm consulted-- Dr. 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 Montgomery -- hold A/C -- Daily Protonix 40mg -- EGD(07/23/19): sliding hiatal hernia; missing tooth -- CXR(07/23/19): no radioopaque FB -- c-scope(07/23/19): polyps at rectum and hepatic flexure, inadequate bowel prep; rec repeat cscope at 07/24/19 -- c-scope(07/24/19): rectosigmdoid polyps, diverticulosis -Eliquis rceently d/c'd-- pt was not on eliquis 2017 --as per Communications Operator(Dr Mir Mims) TTE(March 2019) showed thrombus x2 of RA, but then Dave MENA(April 2019) showed no thrombus -- Eliquis dc'd #CPOD -cw home budesonide/Formeterol -supplemental O2 PRN -will assess Pre and Post O2 prior to discharge #MARISOL --improving >HbA1c 5.1 >Cr(baseline ~1): 1.5 -> 1.4 -> 1.2 -->1.4 -encourage PO hydration #UTI -- >UA(07/17/19): neg nitrite, 1+ LE, WBC 14, Bact 184.5 >UCX(07/17/19): contaminated -- rpt(07/20/19): ESBL 70-80k CFU #HTN -home meds: hydralazine, carvedilol, amlodipine #HLD -C/w atorvastatin 80mg daily #Dementia -C/w donepezil #FEN -trend lytes -fat/sodium controlled diet #PPX DVT: SCDS, SQHep BID Visit type - Emergency Visit Emergency Visit: No - New Patient This patient is new to me today: No - Critical Care Critical Care patient: No ATTENDING PHYSICIAN STATEMENT I saw and evaluated the patient. I reviewed the resident's note and discussed the case with the resident. I agree with the resident's findings and plan as documented. SUBJECTIVE: OBJECTIVE: ASSESSMENT AND PLAN:
--- NOTE | 2019-07-24 19:43 | DS ---
Physical Exam: SUBJECTIVE: Patient seen and examined OBJECTIVE: Vital Signs Period Temp Pulse Resp BP Sys/Christensen Pulse Ox Last 24 Hr 97.4 F-98.4 F 72-97 18-20 115-150/51-76 97-100 PHYSICAL EXAM G LABS Laboratory Results - last 24 hr 07/24/19 07/24/19 05:20 05:20 WBC 7.8 RBC 3.81 Hgb 9.2 L Hct 29.1 L MCV 76.5 L MCH 24.3 L MCHC 31.7 L RDW 20.2 H Plt Count 347 MPV 9.2 Sodium 139 Potassium 4.5 Chloride 101 Carbon Dioxide 30 Anion Gap 8 BUN 15.4 Creatinine 1.4 H Est GFR (CKD-EPI)AfAm 44.01 Est GFR (CKD-EPI)NonAf 37.97 Random Glucose 89 Calcium 9.2 Phosphorus 4.4 Magnesium 2.4 HOSPITAL COURSE: Date of Admission:07/17/19 Date of Discharge: 07/25/19 Discharge Summary Problems reviewed: Yes Reason For Visit: COPD Current Active Problems Acute on chronic diastolic heart failure (Acute) Anemia (Acute) CKD (chronic kidney disease) (Acute) COPD with exacerbation (Acute) Cerebrovascular disease (Acute) Decompensated heart failure (Acute) Dyspnea (Acute) Morbid obesity (Acute) Respiratory failure with hypoxia (Acute) Shortness of breath (Acute) Condition: Stable - Instructions Diet, Activity, Other Instructions: You were evaluated in the hospital for shortness of breath with trouble breathing. Medications were started to promote urination which helped remove excess water from your body. You were also found to be anemic. A colonoscopy was performed, which showed some polyps and diverticulosis. It is recommended that you follow a high fiber diet and a repeat colonoscopy in 3 years. You were also noted to have an increase in troponin, which often means you have some damage to your heart. You were evaluated by cardiology and recommended that you follow up with your motion picture photographer to consider starting on aspirin. Please see the doctors below for follow-up in 1-2 weeks: - Primary care physician (Dr. Dickson) for follow-up on the urine cultures, recheck bloodwork for your electrolytes and kidney function in 1 week. - Case Picker(Dr Rayo) for continued discussion of need for future cardiac examinations - Personal Computer Network Engineer(Dr Romeo Bhatia): for sleep study testing, and continued management of your COPD medications - Spool Hauler(Dr Marian Leal): for dicussion of your EGD and colonoscopy results Medications: - continue with your normal home medications Other instructions: - maintain a healthy heart diet(low salt, low sugar, high fiber) - avoid excessive fluid intake Please seek immediate medical attention or go to the Emergency Department if you experience: - shortness of breath, trouble breathing, unresolving cough - chest pain, palpitations - burning with urination, fevers, chills, confusion Referrals: Timothy Jin MD [Staff Physician] - Buddy Chappell DO [Staff Physician] - Harvinder Staples MD [Staff Physician] - Manju Dickson MD [Primary Care Provider] - Disposition: VNS/HOME HEALTH CARE - Home Medications Comprehensive Discharge Medication List: Ambulatory Orders Allopurinol [Zyloprim -] 100 mg PO DAILY 09/10/18 Donepezil HCl 10 mg PO HS 09/10/18 Calcium Carbonate [Calcium] 600 mg PO DAILY 07/17/19 Carvedilol [Coreg -] 3.125 mg PO BID 07/17/19 Ergocalciferol (Vitamin D2) [Vitamin D2] 25 mcg PO DAILY 07/17/19 Fluticasone Propion/Salmeterol [Wixela 500-50 Inhub] 1 each IH BID 07/17/19 Hydralazine HCl 50 mg PO TID 07/17/19 Pantoprazole Sodium 40 mg PO DAILY 07/17/19 Torsemide 20 mg PO BID 07/17/19 Atorvastatin Calcium 40 mg PO HS 07/18/19 Amlodipine Besylate [Norvasc -] 5 mg PO DAILY 30 Days #30 mg 07/24/19 ATTENDING PHYSICIAN STATEMENT I saw and evaluated the patient. I reviewed the resident's note and discussed the case with the resident. I agree with the resident's findings and plan as documented. SUBJECTIVE: OBJECTIVE: ASSESSMENT AND PLAN:
[2019-07-24] MEDS: DONEPEZIL HCL 10 MG TABLET (FP) PO SCH (21:03)
[2019-07-24] MEDS: ATORVASTATIN CA 40 MG TABLET (FP) PO SCH (21:03)
[2019-07-24 23:58] VITALS: BMI 41.3
[2019-07-25] MEDS: TORSEMIDE 20 MG TABLET (FP) PO SCH ×2 (06:03→17:46)
[2019-07-25] MEDS: hydrALAZINE HCL 25 MG TABLET (FP) PO SCH ×2 (06:03→15:12)
[2019-07-25] MEDS: CARVEDILOL 3.125 MG TABLET (FP) PO SCH (10:06)
[2019-07-25] MEDS: PANTOPRAZOLE 40 MG TABLET (FP) PO SCH (10:06)
[2019-07-25] MEDS: amLODIPine BESYLATE 5 MG TABLET (FP) PO SCH (10:06)
[2019-07-25] MEDS: POTASSIUM CHLORIDE ORAL LIQUID 20 MEQ/15 ML PO SCH (10:07)
[2019-07-25] MEDS: BUDESONIDE/FORMETEROL FUMARATE 160/4.5 mcg INHALER IH SCH (10:08)
--- NOTE | 2019-07-25 11:18 | PN ---
Progress Note, Physician History of Present Illness: PULMONARY ALERT,OOB-CHAIR,-SOB,-CP - Current Medication List Current Medications: Active Medications Amlodipine Besylate (Norvasc -) 5 mg PO DAILY [facility] Last Admin: 07/25/19 10:06 Dose: 5 mg Atorvastatin Calcium (Lipitor -) 80 mg PO HS [facility] Last Admin: 07/24/19 21:03 Dose: 80 mg Budesonide/Formoterol Fumarate (Symbicort 160/4.5mcg -) 2 puff IH BID [facility] Last Admin: 07/25/19 10:08 Dose: 2 puff Carvedilol (Coreg -) 3.125 mg PO BID [facility] Last Admin: 07/25/19 10:06 Dose: 3.125 mg Donepezil HCl (Aricept -) 10 mg PO HS [facility] Last Admin: 07/24/19 21:03 Dose: 10 mg Heparin Sodium (Porcine) (Heparin -) 5,000 unit SQ BID [facility] Last Admin: 07/24/19 12:09 Dose: Not Given Hydralazine HCl (Apresoline -) 50 mg PO TID [facility] Last Admin: 07/25/19 06:03 Dose: 50 mg Pantoprazole Sodium (Protonix -) 40 mg PO DAILY [facility] Last Admin: 07/25/19 10:06 Dose: 40 mg Potassium Chloride (Potassium Chloride Oral Liquid) 40 meq PO BID [facility] Last Admin: 07/25/19 10:07 Dose: 40 meq Torsemide (Demadex -) 20 mg PO BID@0600,1800 [facility] Last Admin: 07/25/19 06:03 Dose: 20 mg - Objective Vital Signs: Vital Signs Temperature 97.5 F L 07/25/19 05:40 Pulse Rate 84 07/25/19 05:40 Respiratory Rate 20 07/25/19 05:40 Blood Pressure 125/54 L 07/25/19 05:40 O2 Sat by Pulse Oximetry (%) 99 07/24/19 22:00 Constitutional: Yes: Well Nourished, Calm Eyes: Yes: WNL HENT: Yes: WNL Neck: Yes: WNL Cardiovascular: Yes: Regular Rate and Rhythm, S1, S2 Respiratory: Yes: CTA Bilaterally Gastrointestinal: Yes: Normal Bowel Sounds, Soft Extremities: Yes: WNL Edema: No Labs: CBC, BMP 07/24/19 05:20 07/24/19 05:20 INR, PTT INR 1.02 (0.83-1.09) 07/17/19 00:40 Assessment/Plan Problem List - Problems (1) Dyspnea Code(s): R06.00 - DYSPNEA, UNSPECIFIED (2) Decompensated heart failure Code(s): I50.9 - HEART FAILURE, UNSPECIFIED (3) Morbid obesity Code(s): E66.01 - MORBID (SEVERE) OBESITY DUE TO EXCESS CALORIES (4) CKD (chronic kidney disease) Code(s): N18.9 - CHRONIC KIDNEY DISEASE, UNSPECIFIED (5) Respiratory failure with hypoxia Code(s): J96.91 - RESPIRATORY FAILURE, UNSPECIFIED WITH HYPOXIA Qualifiers: Chronicity: acute Qualified Code(s): J96.01 - Acute respiratory failure with hypoxia (6) Shortness of breath Code(s): R06.02 - SHORTNESS OF BREATH (7) Dementia Code(s): F03.90 - UNSPECIFIED DEMENTIA WITHOUT BEHAVIORAL DISTURBANCE (8) HTN (hypertension) Code(s): I10 - ESSENTIAL (PRIMARY) HYPERTENSION 9 SEVERE ANEMIA Assessment/Plan IMP: Do not suspect AE of Obstructive Airways Disease Do not suspect Respiratory Tract infection Probable OSAS Anemia Acute on chronic chf improved PLAN: Will need formal OSAS evaluation after discharge Diuretics DR LAYNE
--- NOTE | 2019-07-25 14:24 | PN ---
Progress Note, Physician Chief Complaint: Events noted Not in distress History of Present Illness: Patient was seen and examined. Awake and alert. Chart was reviewed Denies chest pain, SOB or palpitations - Current Medication List Current Medications: Active Medications Amlodipine Besylate (Norvasc -) 5 mg PO DAILY [facility] Last Admin: 07/25/19 10:06 Dose: 5 mg Atorvastatin Calcium (Lipitor -) 80 mg PO HS [facility] Last Admin: 07/24/19 21:03 Dose: 80 mg Budesonide/Formoterol Fumarate (Symbicort 160/4.5mcg -) 2 puff IH BID [facility] Last Admin: 07/25/19 10:08 Dose: 2 puff Carvedilol (Coreg -) 3.125 mg PO BID [facility] Last Admin: 07/25/19 10:06 Dose: 3.125 mg Donepezil HCl (Aricept -) 10 mg PO HS [facility] Last Admin: 07/24/19 21:03 Dose: 10 mg Heparin Sodium (Porcine) (Heparin -) 5,000 unit SQ BID [facility] Last Admin: 07/24/19 12:09 Dose: Not Given Hydralazine HCl (Apresoline -) 50 mg PO TID [facility] Last Admin: 07/25/19 06:03 Dose: 50 mg Pantoprazole Sodium (Protonix -) 40 mg PO DAILY [facility] Last Admin: 07/25/19 10:06 Dose: 40 mg Potassium Chloride (Potassium Chloride Oral Liquid) 40 meq PO BID [facility] Last Admin: 07/25/19 10:07 Dose: 40 meq Torsemide (Demadex -) 20 mg PO BID@0600,1800 [facility] Last Admin: 07/25/19 06:03 Dose: 20 mg - Objective Vital Signs: Vital Signs Temperature 97.5 F L 07/25/19 05:40 Pulse Rate 84 07/25/19 05:40 Respiratory Rate 20 07/25/19 05:40 Blood Pressure 125/54 L 07/25/19 05:40 O2 Sat by Pulse Oximetry (%) 99 07/24/19 22:00 Eyes: Yes: PERRL HENT: Yes: Atraumatic Neck: Yes: Supple Cardiovascular: Yes: Regular Rate and Rhythm, S1, S2 Respiratory: Yes: CTA Bilaterally. No: Wheezes Gastrointestinal: Yes: Normal Bowel Sounds, Soft. No: Tenderness Additional Findings/Remarks: - Review of Systems Constitutional: denies: Chills, Fever Cardiovascular: reports: Shortness of Breath. denies: Chest Pain, Palpitations Respiratory: reports: Cough, SOB, SOB on Exertion. denies: Hemoptysis, Orthopnea, PND, Wheezing Gastrointestinal: denies: Abdominal Pain, Constipation, Diarrhea, Melena, Nausea , Rectal Bleeding, Vomiting Genitourinary: denies: Dysuria, Hematuria Musculoskeletal: denies: Back Pain, Joint Pain Neurological: denies: Dizziness, Headache, Seizure, Syncope Labs: CBC, BMP 07/24/19 05:20 07/24/19 05:20 INR, PTT INR 1.02 (0.83-1.09) 07/17/19 00:40 Problem List - Problems (1) Cerebrovascular disease Code(s): I67.9 - CEREBROVASCULAR DISEASE, UNSPECIFIED (2) CKD (chronic kidney disease) Code(s): N18.9 - CHRONIC KIDNEY DISEASE, UNSPECIFIED (3) Shortness of breath Code(s): R06.02 - SHORTNESS OF BREATH (4) COPD with exacerbation Code(s): J44.1 - CHRONIC OBSTRUCTIVE PULMONARY DISEASE W (ACUTE) EXACERBATION (5) Respiratory failure with hypoxia Code(s): J96.91 - RESPIRATORY FAILURE, UNSPECIFIED WITH HYPOXIA Qualifiers: Chronicity: acute on chronic Qualified Code(s): J96.21 - Acute and chronic respiratory failure with hypoxia (6) Dementia Code(s): F03.90 - UNSPECIFIED DEMENTIA WITHOUT BEHAVIORAL DISTURBANCE (7) HTN (hypertension) Code(s): I10 - ESSENTIAL (PRIMARY) HYPERTENSION (8) Hypercholesteremia Code(s): E78.00 - PURE HYPERCHOLESTEROLEMIA, UNSPECIFIED (9) TIA (transient ischemic attack) Code(s): G45.9 - TRANSIENT CEREBRAL ISCHEMIC ATTACK, UNSPECIFIED Assessment/Plan 1. Shortness of breath due to acute on chronic LV diastolic failure (HFpEF) 2. COPD exacerbation 3. HTN 4. Hypercholesterolemia 5. Cerebrovascular disease 6. History of diverticulitis, Iron deficient anemia 7. Organic brain/dementia 8. CKD PLAN: 1. Continue current medical therapy including Carvedilol 3.125 mg BID, Amlodipine 5 mg QD, Hydralazine 50 mg TID and Lipitor 80 mg QHS 2. Diuretic (Demadex) with monitoring renal function and electrolytes 3. Bronchodilator, O2, BIPAP and antibiotic coverage 4. As outlined regarding Eliquis, currently not on it and was stopped by Perri Waite but will needed to assess. Consider ASA Further plans are to follow Harvinder Staples MD
--- NOTE | 2019-07-25 14:51 | PN ---
Teaching Attending Note Name of Resident: Matt Hall ATTENDING PHYSICIAN STATEMENT I saw and evaluated the patient. I reviewed the resident's note and discussed the case with the resident. I agree with the resident's findings and plan as documented. SUBJECTIVE: Feeling much better. SOB much improved. Ambulating with walker without symptoms. OBJECTIVE: Afebrile, Hemodynamically Stable. Last Vital Signs Temp Pulse Resp BP Pulse Ox 97.5 F L 84 20 125/54 L 99 07/25/19 05:40 07/25/19 05:40 07/25/19 05:40 07/25/19 05:40 07/24/19 22:00 NEURO: AAO x 3. HEART: S1, S2, RRR LUNGS: Clear to auscultation ABDOMEN: High BMI. Soft, non-tender, non-distended, normal BS EXTREMITIES: Mild edema LEs. No calf tenderness. Current Medications Generic Name Dose Route Start Last Admin Trade Name Freq PRN Reason Stop Dose Admin Amlodipine Besylate 5 mg 07/17/19 10:00 07/25/19 10:06 Norvasc - PO 5 mg DAILY ARA Administration Atorvastatin Calcium 80 mg 07/17/19 22:00 07/24/19 21:03 Lipitor - PO 80 mg HS ARA Administration Budesonide/Formoterol Fumarate 2 puff 07/19/19 22:00 07/25/19 10:08 Symbicort 160/4.5mcg - IH 2 puff BID ARA Administration Carvedilol 3.125 mg 07/17/19 22:00 07/25/19 10:06 Coreg - PO 3.125 mg BID ARA Administration Donepezil HCl 10 mg 07/17/19 22:00 07/24/19 21:03 Aricept - PO 10 mg HS ARA Administration Heparin Sodium (Porcine) 5,000 unit 07/19/19 22:00 07/24/19 12:09 Heparin - SQ Not Given BID ARA Hydralazine HCl 50 mg 07/17/19 22:00 07/25/19 06:03 Apresoline - PO 50 mg TID ARA Administration Pantoprazole Sodium 40 mg 07/19/19 18:45 07/25/19 10:06 Protonix - PO 40 mg DAILY ARA Administration Potassium Chloride 40 meq 07/20/19 15:13 07/25/19 10:07 Potassium Chloride Oral Liquid PO 40 meq BID ARA Administration Torsemide 20 mg 07/23/19 06:00 07/25/19 06:03 Demadex - PO 20 mg BID@0600,1800 ARA Administration ASSESSMENT AND PLAN: 68 year old female with a history of chronic diastolic heart failure, HTN, HLD, morbid obesity, Asthma/COPD, anemia, Dementia presented with SOB. 1. Acute Hypoxic respiratory failure secondary to acute diastolic heart failure CTA neg for PE SpO2 97% on RA - resp failure resolved. Continue Torsemide. BiPAP as required. 2 . Pneumonia - completed Abx course. Afebrile, Hemodynamically Stable. 3. Troponin egression sec to demand ischemia - further work up as per Cardiology. 4. Asthma/COPD - Stable. Continue Symbicort 5. Anemia, microcytic, sec to iron deficiency H/H 9.2/29.1 s/p 1 unit PRBCs s/p EGD - no source of bleeding identified s/p Colonoscopy 07/23- poor prep, polyps and again on 07/24 which showed rectosigmdoid polyps, diverticulosis. Iron supplementation. 6. HTN - Continue Norvasc, Coreg, Hydralazine, Torsemide 7. Hyperlipidemia - Continue Lipitor 8. Dementia - Continue Aricept 9. CKD 3 - Stable. Monitor on torsemide. 10. Probable TREY - BiPAP PRN - for outpatient pulmonary follow-up for spirometry and sleep study 11. ESBL EColi positive Urine Cx - asymptomatic, likely contaminant. 12. Hx Cardiac Thrombus - previously on Eliquis - stopped prior to admission - now not on AC. For out-patient Cardiology follow up. Medically optimized for discharge.
[2019-07-25 15:05] VITALS: BP 133/62; PULSE 81; TEMP 98.2
--- NOTE | 2019-07-25 16:52 | PN ---
Physical Exam: SUBJECTIVE: Patient seen and examined NAEON. Tolerated colonoscopy yeterday OBJECTIVE: Vital Signs Period Temp Pulse Resp BP Sys/Christensen Pulse Ox Last 24 Hr 97.3 F-98.2 F 64-84 18-20 125-142/54-65 99-99 GENERAL: The patient is awake, alert. NAD HEAD: Normal with no signs of trauma. EYES: sclera anicteric, mild conjunctival pallor. ENT: Ears normal, nares patent, moist mucous membranes. Missing tooth at midline lower jaw. NECK: Trachea midline, full range of motion, supple. LUNGS: CTA b/l, no accessory muscle use. Breathing comfortably on RA. Speaking in full sentences HEART: Regular rate and rhythm, S1, S2 without murmur, rub or gallop. ABDOMEN: Soft, nontender, nondistended, no guarding, no rebound. EXTREMITIES: 2+ pulses, warm, well-perfused, 1+ edema to BLE NEUROLOGICAL: Normal speech PSYCH: Normal mood, normal affect. SKIN: Warm, dry, normal turgor, no rashes or lesions noted Active Medications Generic Name Dose Route Start Last Admin Trade Name Freq PRN Reason Stop Dose Admin Amlodipine Besylate 5 mg 07/17/19 10:00 07/25/19 10:06 Norvasc - PO 5 mg DAILY ARA Administration Atorvastatin Calcium 80 mg 07/17/19 22:00 07/24/19 21:03 Lipitor - PO 80 mg HS ARA Administration Budesonide/Formoterol Fumarate 2 puff 07/19/19 22:00 07/25/19 10:08 Symbicort 160/4.5mcg - IH 2 puff BID ARA Administration Carvedilol 3.125 mg 07/17/19 22:00 07/25/19 10:06 Coreg - PO 3.125 mg BID ARA Administration Donepezil HCl 10 mg 07/17/19 22:00 07/24/19 21:03 Aricept - PO 10 mg HS ARA Administration Heparin Sodium (Porcine) 5,000 unit 07/19/19 22:00 07/24/19 12:09 Heparin - SQ Not Given BID ARA Hydralazine HCl 50 mg 07/17/19 22:00 07/25/19 15:12 Apresoline - PO 50 mg TID ARA Administration Pantoprazole Sodium 40 mg 07/19/19 18:45 07/25/19 10:06 Protonix - PO 40 mg DAILY ARA Administration Potassium Chloride 40 meq 07/20/19 15:13 07/25/19 10:07 Potassium Chloride Oral Liquid PO 40 meq BID ARA Administration Torsemide 20 mg 07/23/19 06:00 07/25/19 06:03 Demadex - PO 20 mg BID@0600,1800 ARA Administration ASSESSMENT/PLAN: 68 y.o. F PMH asthma/ COPD, diastolic CHF pEF, HTN, HLD, dementia presenting from home d/t SOB. #Acute HFpEF exacerbation >BNP(07/17/19) ~1959.6 >troponin 0.05 ->0.06 -> 0.07 -> 0.07 >Echo(07/17/19): LV is normal, mild LVH >CTA(07/17/19): neg AAA, neg PE, trace pleural effusion >EKG shows sinus tachy, QTc 530 >EKG(07/18/19): NSR, QTc 483 -Lasix 40mg IV BID --> home Torsemide 20mg -Solumedrol IV 40mg q6h -- dc'd -Is & Os -Daily weights: 130kg at admission --> 120kg currently -Cardio consulted (Dr. Rosado) #SOB 2/2 to HFrEF >CXR(07/18/19): cardiomegaly, fullness of eduarda, no gross infiltrate >ABG(07/17/19): 7.42/37.1/116/23.6/98.5/-0.2 on BiPAP >ABG(07/18/19): 7.46/39.3/70.9/27.7/93.9/4.1 on 4L NC -Doxycycline & rocephin for abx coverage-- recent sick contact-- dc'd -BIPAP PRN and QHS -Pulm consulted-- Dr. 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 Montgomery -- hold A/C -- Daily Protonix 40mg -- EGD(07/23/19): sliding hiatal hernia; missing tooth -- CXR(07/23/19): no radioopaque FB -- c-scope(07/23/19): polyps at rectum and hepatic flexure, inadequate bowel prep; rec repeat cscope at 07/24/19 -- c-scope(07/24/19): rectosigmdoid polyps, diverticulosis -Eliquis rceently d/c'd-- pt was not on eliquis 2017 --as per Tariff Supervisor(Dr Mir Mims) TTE(March 2019) showed thrombus x2 of RA, but then Dave MENA(April 2019) showed no thrombus -- Eliquis dc'd #CPOD -cw home budesonide/Formeterol -supplemental O2 PRN -will assess Pre and Post O2 prior to discharge #MARISOL --improving >HbA1c 5.1 >Cr(baseline ~1): 1.5 -> 1.4 -> 1.2 -->1.4 -encourage PO hydration #UTI -- >UA(07/17/19): neg nitrite, 1+ LE, WBC 14, Bact 184.5 >UCX(07/17/19): contaminated -- rpt(07/20/19): ESBL 70-80k CFU #HTN -home meds: hydralazine, carvedilol, amlodipine #HLD -C/w atorvastatin 80mg daily #Dementia -C/w donepezil #FEN -trend lytes -fat/sodium controlled diet #PPX DVT: SCDS, SQHep BID Visit type - Emergency Visit Emergency Visit: No - New Patient This patient is new to me today: No - Critical Care Critical Care patient: No ATTENDING PHYSICIAN STATEMENT I saw and evaluated the patient. I reviewed the resident's note and discussed the case with the resident. I agree with the resident's findings and plan as documented. SUBJECTIVE: OBJECTIVE: ASSESSMENT AND PLAN:
--- NOTE | 2019-07-25 17:20 | PATH ---
Surgical Pathology Report Patient Name: JUANJO DUBOIS Med. Rec. #: [id number] /Age/Gender: 1950 (Age: 68) / F Account: [id number] Location: 4 W TELEMETRY U Taken: 07/23/2019 Received: 07/23/2019 Reported: 07/25/2019 Physicians: MD Mohan Apple M.D. Specimen(s) Received A: HEPATIC FLEXURE POLYP B: RECTAL POLYP Clinical History Anemia Postoperative diagnosis: Hiatal hernia, colon polyps, diverticulosis Final Diagnosis A. COLON, HEPATIC FLEXURE, POLYP, BIOPSY: TUBULAR ADENOMA. B. RECTAL POLYPS, BIOPSY: HYPERPLASTIC POLYP. Electronically Signed Manju Edwards M.D. Gross Description A. Received in formalin, labeled "biopsy hepatic flexure" are 2 mcqueen, irregular portions of soft tissue measuring 0.2 and 0.6 cm. in greatest dimension. The specimens are submitted in toto in one cassette. B. Received in formalin, labeled "biopsy rectal polyps" are 3 mcqueen, irregular portions of soft tissue ranging from 0.2-0.3 cm. in greatest dimension. The specimens are submitted in toto in one cassette. 07/24/2019 saudi07/24/2019
--- NOTE | 2019-07-26 18:02 | PATH ---
Surgical Pathology Report Patient Name: JUANJO DUBOIS Med. Rec. #: [id number] /Age/Gender: 1950 (Age: 68) / F Account: [id number] Location: 4 W TELEMETRY U Taken: 07/24/2019 Received: 07/25/2019 Reported: 07/26/2019 Physicians: Yajaira Tinoco MD Specimen(s) Received A: RECTOSIGMOID POLYP B: RECTAL POLYP Clinical History Anemia Postoperative diagnosis: Colon polyps, diverticulosis Final Diagnosis A. RECTOSIGMOID POLYP, BIOPSY: HYPERPLASTIC POLYP. B. RECTAL POLYPS, BIOPSY: HYPERPLASTIC POLYP(S). Electronically Signed Manju Edwards M.D. Gross Description A. Received in formalin, labeled "biopsy rectosigmoid polyp" are 2 mcqueen, irregular portions of soft tissue averaging 0.3 cm. in greatest dimension. The specimens are submitted in toto in one cassette. B. Received in formalin, labeled "biopsy rectal polyps" are 2 mcqueen, irregular portions of soft tissue averaging 0.2 cm. in greatest dimension. The specimens are submitted in toto in one cassette. DL/07/25/2019 saudi07/25/2019
== END 2019-07-25 18:26 | disposition home health service (06) | DRG 291 ==
LOC: JER 00:12 → JERBED 00:44 → J4W 21:30
PROVIDERS: ADMIT Internal Medicine
PROC: 0DBN8ZX Excision of Sigmoid Colon, Via Natural or Artificial Opening Endoscopic, Diagnostic (ICD-10-PCS; 2019-07-24)
PROC: 0DBP8ZX Excision of Rectum, Via Natural or Artificial Opening Endoscopic, Diagnostic (ICD-10-PCS; principal; 2019-07-24 12:45)
DX: I13.0 Hypertensive heart and chronic kidney disease with heart failure and stage 1 through stage 4 chronic kidney disease, or unspecified chronic kidney disease (principal); J96.01 Acute respiratory failure with hypoxia; I50.31 Acute diastolic (congestive) heart failure; J96.02 Acute respiratory failure with hypercapnia; J18.9 Pneumonia, unspecified organism; N17.9 Acute kidney failure, unspecified; Z68.41 Body mass index [BMI] 40.0-44.9, adult; D62 Acute posthemorrhagic anemia; J98.11 Atelectasis; I24.8 Other forms of acute ischemic heart disease; N39.0 Urinary tract infection, site not specified; B96.20 Unspecified Escherichia coli [E. coli] as the cause of diseases classified elsewhere; K57.90 Diverticulosis of intestine, part unspecified, without perforation or abscess without bleeding; E78.5 Hyperlipidemia, unspecified; J44.9 Chronic obstructive pulmonary disease, unspecified; M10.9 Gout, unspecified; G40.909 Epilepsy, unspecified, not intractable, without status epilepticus; R00.0 Tachycardia, unspecified; E88.09 Other disorders of plasma-protein metabolism, not elsewhere classified; F17.210 Nicotine dependence, cigarettes, uncomplicated; E66.01 Morbid (severe) obesity due to excess calories; F03.90 Unspecified dementia, unspecified severity, without behavioral disturbance, psychotic disturbance, mood disturbance, and anxiety; G47.33 Obstructive sleep apnea (adult) (pediatric); D50.0 Iron deficiency anemia secondary to blood loss (chronic); I48.0 Paroxysmal atrial fibrillation; I25.119 Atherosclerotic heart disease of native coronary artery with unspecified angina pectoris; N18.3 Chronic kidney disease, stage 3 (moderate); Z86.73 Personal history of transient ischemic attack (TIA), and cerebral infarction without residual deficits
CPT/HCPCS: 36415; 36430; 36600; 71045-TC-FY; 71275-TC; 74177-TC; 80048; 80051; 80053; 81003; 82272; 82375; 82550; 82728; 82803; 82962; 83036; 83050; 83540; 83550; 83605; 83735; 83880; 83970; 84100; 84466; 84484; 85025; 85027; 85044; 85610; 85730; 86850; 86900; 86901; 86922; 87040; 87086; 87186; 88305-TC; 93005; 93010; 93306-TC; 94640; 94660; 94761; 97116-GP; 97161-GP; 99285-25; J1644; P9058

== ENCOUNTER 2019-08-08 01:13 | Observation (INO) | payer OTHER ==
--- NOTE | 2019-08-08 02:02 | PDOC ---
Attending Attestation - Resident Resident Name: Meghan Vasquez - ED Attending Attestation I have performed the following: I have examined & evaluated the patient, The case was reviewed & discussed with the resident, I agree w/resident's findings & plan - HPI HPI: 08/08/19 02:39 see resident hpi - Physicial Exam PE: 08/08/19 02:39 agree with resident - Medical Decision Making 08/08/19 02:39 68-year-old female with chest pressure status post recent admission for hypertensive urgency at [facility] EKG shows no acute ST segment abnormalities Chest x-ray shows no focal infiltrate Plan for admission to medical service for serial enzymes
--- NOTE | 2019-08-08 02:18 | PDOC ---
History of Present Illness - General Chief Complaint: Chest Pain Stated Complaint: CHEST PAIN/DIFFICULTY BREATHING Time Seen by Provider: 08/08/19 01:55 - History of Present Illness Initial Comments: 08/08/19 02:18 68 year old woman with a history of CHF, HTN, HLD, borderline DM, COPD (no home O2) who presents with sudden onset central chest pressure rated 6/10 associated with shortness of breath but self resolved after 30-40min. The patient states that this same episode occurred 2 weeks and also self-resolved ROS GENERAL/CONSTITUTIONAL: No fever or chills. No weakness. HEAD, EYES, EARS, NOSE AND THROAT: No change in vision. No ear pain or discharge. No sore throat. CARDIOVASCULAR: No chest pain or shortness of breath RESPIRATORY: No cough, wheezing, or hemoptysis. GASTROINTESTINAL: No nausea, vomiting, diarrhea or constipation. GENITOURINARY: No dysuria, frequency, or change in urination. MUSCULOSKELETAL: No joint or muscle swelling or pain. No neck or back pain. SKIN: No rash PE GENERAL: Awake, alert, and fully oriented, in no acute distress HEAD: No signs of trauma, normocephalic, atraumatic EYES: PERRLA, EOMI, sclera anicteric, conjunctiva clear ENT: oropharynx clear without exudates. Moist mucosa NECK: Normal ROM, supple LUNGS: No distress, speaks full sentences, clear to auscultation bilaterally HEART: Regular rate and rhythm, normal S1 and S2, no murmurs, rubs or gallops, peripheral pulses normal and equal bilaterally. ABDOMEN: Soft, nontender, normoactive bowel sounds. No guarding, no rebound. No masses EXTREMITIES : Normal inspection, Normal range of motion, no edema. No clubbing or cyanosis. NEUROLOGICAL: Cranial nerves II through XII grossly intact. Normal speech, no focal sensorimotor deficits SKIN: Warm, Dry, normal turgor, no rashes or lesions noted MDM DDX including but not limited to: ED Course: Meghan Vasquez, PGY2 Emergency Medicine 1 Past History - Past Medical History Allergies/Adverse Reactions: Allergies Allergy/AdvReac Type Severity Reaction Status Date / Time No Known Drug Allergies Allergy Verified 08/08/19 01:31 Shellfish Allergy Uncoded 08/08/19 01:31 Home Medications: Ambulatory Orders Allopurinol [Zyloprim -] 100 mg PO DAILY 09/10/18 Donepezil HCl 10 mg PO HS 09/10/18 Calcium Carbonate [Calcium] 600 mg PO DAILY 07/17/19 Carvedilol [Coreg -] 3.125 mg PO BID 07/17/19 Ergocalciferol (Vitamin D2) [Vitamin D2] 25 mcg PO DAILY 07/17/19 Fluticasone Propion/Salmeterol [Wixela 500-50 Inhub] 1 each IH BID 07/17/19 Hydralazine HCl 50 mg PO TID 07/17/19 Pantoprazole Sodium 40 mg PO DAILY 07/17/19 Torsemide 20 mg PO BID 07/17/19 Atorvastatin Calcium 40 mg PO HS 07/18/19 Amlodipine Besylate [Norvasc -] 5 mg PO DAILY 30 Days #30 mg 07/24/19 Docusate Sodium [Colace] 100 mg PO DAILY #30 capsule 07/25/19 Ferrous Sulfate 325 mg PO BID #60 tablet 07/25/19 CVA: Yes COPD: Yes CHF: Yes Dementia: Yes HTN: Yes Hypercholesterolemia: Yes Seizures: Yes (EPILEPTIC SEIZURES - RECENT 2012; not on meds) - Immunization History Immunization Up to Date: Yes - Psycho Social/Smoking Cessation Hx Smoking Status: No Smoking History: Never smoked Have you smoked in the past 12 months: No Number of Cigarettes Smoked Daily: 10 If you are a former smoker, when did you quit?: 2018 Information on smoking cessation initiated: No 'Breaking Loose' booklet given: 09/10/18 Hx Alcohol Use: No Drug/Substance Use Hx: No Substance Use Type: Alcohol Hx Substance Use Treatment: No *Physical Exam - Vital Signs Last Vital Signs Temp Pulse Resp BP Pulse Ox 98.8 F 90 18 149/76 99 08/08/19 01:15 08/08/19 01:15 08/08/19 01:15 08/08/19 01:15 08/08/19 01:15 ED Treatment Course - LABORATORY CBC & Chemistry Diagram: 08/08/19 03:30 08/08/19 03:30 Discharge - Discharge Information Condition: Fair - Follow up/Referral Referrals: Manju Dickson MD [Primary Care Provider] - - Patient Discharge Instructions - Post Discharge Activity
[2019-08-08 03:43] LABS: HEMOGLOBIN 8.2 GM/dL (10.7-15.3); MCH 24.6 pg (25.7-33.7); MCHC 31.6 g/dl (32.0-36.0); MEAN CELL VOLUME 78.1 fl (80-96); MEAN PLT VOLUME 9.4 fl (7.5-11.1); PLATELET COUNT 314 K/MM3 (134-434); RBC 3.33 M/mm3 (3.60-5.2); RDW 20.1 % (11.6-15.6)
[2019-08-08 03:48] LABS: INR 1.05 (0.83-1.09); PROTHROMBIN TIME (PATIENT) 12.4 SEC (9.7-13.0)
[2019-08-08 04:03] LABS: BILIRUBIN,TOTAL 0.3 mg/dL (0.2-1); CALCIUM 9.2 mg/dL (8.5-10.1); CREATININE 1.3 mg/dL (0.55-1.3); MAGNESIUM 2.1 mg/dL (1.8-2.4); N-TERMINAL BNP 1273.8 pg/ml (5-125); POTASSIUM 3.8 mmol/L (3.5-5.1)
--- NOTE | 2019-08-08 05:20 | PN ---
Teaching Attending Note Name of Resident: Gay Meyer ATTENDING PHYSICIAN STATEMENT I saw and evaluated the patient. I reviewed the resident's note and discussed the case with the resident. I agree with the resident's findings and plan as documented. SUBJECTIVE: 68-year-old woman with a history of CHF, hypertension, dyslipidemia,Anemia, borderline diabetes mellitus, COPD complained of sudden onset of chest pain associated with shortness of breath which lasted about 30 minutes which occurred shortly prior to presentation. Pain was about 6 out of 10 at its worst and was pressure-like. It is now resolved. Recent transthoracic echo noted and appreciated. Patient was noted to have recent stress test performed at [facility] which was allegedly within normal limits. OBJECTIVE: Last Vital Signs Temp Pulse Resp BP Pulse Ox 98.8 F 90 18 149/76 99 08/08/19 01:15 08/08/19 01:15 08/08/19 01:15 08/08/19 01:15 08/08/19 01:15 GENERAL: Well developed, well nourished. Awake and alert. No acute distress. HEENT: Normocephalic, atraumatic. PERRLA, EOMI. No conjunctival pallor. Sclera are non- icteric. Moist mucous membranes. Oropharynx is clear. NECK: Supple. Full ROM. No JVD. Carotid pulses 2+ and symmetric, without bruits. No thyromegaly. No lymphadenopathy. CARDIOVASCULAR: Regular rate and rhythm. No murmurs, rubs, or gallops. Distal pulses are 2+ and symmetric. PULMONARY: No evidence of respiratory distress. Lungs clear to auscultation bilaterally. No wheezing, rales or rhonchi. ABDOMINAL: Soft. Non-tender. Non-distended. No rebound or guarding. No organomegaly. Normoactive bowel sounds. MUSCULOSKELETAL Normal range of motion at all joints. No bony deformities or tenderness. No CVA tenderness. EXTREMITIES: No cyanosis. No clubbing. No edema. No calf tenderness. SKIN: Warm and dry. Normal capillary refill. No rashes. No jaundice. PSYCHIATRIC: Cooperative. Good eye contact. Appropriate mood and affect. Abnormal Lab Results 08/08/19 08/08/19 08/08/19 03:30 03:30 03:30 RBC 3.33 L Hgb 8.2 L Hct 26.0 L MCV 78.1 L MCH 24.6 L MCHC 31.6 L RDW 20.1 H PTT (Actin FS) 25.0 L Chloride 108 H Anion Gap 5 L BUN 27.0 H AST 14 L Troponin I 0.06 H B-Natriuretic Peptide 1273.8 H Albumin 3.0 L Chest x-ray reviewed EKG showed no acute ST abnormalities ASSESSMENT AND PLAN: Chest painrule out ACS. Possibly also TREY component. Patient was scheduled to have outpatient sleep studies performed on last hospital discharge and is currently pending appointment. -Telemetry observation -Trend troponins -Nitroglycerin sublingual chest pain -Consider cardiology evaluation DVT prophylaxis with heparin subcu
--- NOTE | 2019-08-08 05:30 | PN ---
Physical Exam: SUBJECTIVE: Patient seen and examined OBJECTIVE: Vital Signs Period Temp Pulse Resp BP Sys/Christensen Pulse Ox Last 24 Hr 98.8 F 90 18 149/76 99 GENERAL: The patient is awake, alert, oriented to self and location, in no acute distress. HEAD: Normal with no signs of trauma. EYES: PERRL, extraocular movements intact, sclera anicteric, conjunctiva pale ENT: Ears normal, nares patent, oropharynx clear without exudates, dry mucous membranes. NECK: Trachea midline, full range of motion, supple. LUNGS: Breath sounds equal, clear to auscultation bilaterally, no wheezes, no crackles, no accessory muscle use. HEART: Regular rate and rhythm, S1, S2 without murmur, rub or gallop. ABDOMEN: Soft, nontender, nondistended, normoactive bowel sounds, no guarding, no rebound, no hepatosplenomegaly, no masses. EXTREMITIES: 2+ pulses, warm, well-perfused, no edema. NEUROLOGICAL: Cranial nerves II through XII grossly intact. Normal speech, gait not observed. PSYCH: Normal mood, normal affect. SKIN: Warm, dry, normal turgor, no rashes or lesions noted Laboratory Results - last 24 hr 08/08/19 08/08/19 08/08/19 03:30 03:30 03:30 WBC 9.0 RBC 3.33 L Hgb 8.2 L Hct 26.0 L MCV 78.1 L MCH 24.6 L MCHC 31.6 L RDW 20.1 H Plt Count 314 MPV 9.4 PT with INR 12.40 INR 1.05 PTT (Actin FS) 25.0 L Sodium 140 Potassium 3.8 Chloride 108 H Carbon Dioxide 27 Anion Gap 5 L BUN 27.0 H Creatinine 1.3 Est GFR (CKD-EPI)AfAm 48.13 Est GFR (CKD-EPI)NonAf 41.53 Random Glucose 101 Calcium 9.2 Magnesium 2.1 Total Bilirubin 0.3 AST 14 L ALT 14 Alkaline Phosphatase 115 Troponin I 0.06 H B-Natriuretic Peptide 1273.8 H Total Protein 7.0 Albumin 3.0 L Chest painrule out ACS Telemetry observation Trend troponins Nitroglycerin sublingual chest pain Consider cardiology evaluation Cardiac stress test ASSESSMENT/PLAN: Visit type - Emergency Visit Emergency Visit: Yes ED Registration Date: 08/08/19 Care time: The patient presented to the Emergency Department on the above date and was hospitalized for further evaluation of their emergent condition. - New Patient This patient is new to me today: Yes Date on this admission: 08/08/19 - Critical Care Critical Care patient: No - Discharge Referral Referred to [facility] Med [facility].C[facility] No ATTENDING PHYSICIAN STATEMENT I saw and evaluated the patient. I reviewed the resident's note and discussed the case with the resident. I agree with the resident's findings and plan as documented. SUBJECTIVE: OBJECTIVE: ASSESSMENT AND PLAN:
--- NOTE | 2019-08-08 06:33 | HP ---
CHIEF COMPLAINT: SOB and chest tightness PCP: Dr. Dickson HISTORY OF PRESENT ILLNESS: 68 y.o. F PMH asthma/ COPD, diastolic CHF pEF, HTN, HLD, dementia presenting from home complaining of SOB and "chest tightness", daughter was also at bedside to help give history. Per the patient she was at home comfortably asleep when she woke up suddenly due to SOB and "chest tightness". The patient said this has happened to her in the past and normally resolves if she gets up and sits in a chair for a while. The patient stated she tried that this time and called her daughter but the symptoms did not improve. Per the daughter she gave her mother 2 puffs of her rescue inhaler which marginally improved the patient's symptoms. The daughter brought her mother into the ED because she was concerned about her heart. Per the daughter, her mother was hospitalized here a few weeks ago for similar sx of CP and SOB, at that time an echo showed her cardiac fn was ok and she was discharged home with instructions to f/u for a sleep study o/p and to get a BiPAP. The patient was unable to follow up as instructed because only a few days after discharge she was hospitalized at [facility] for CP which the pt described as "a moiz horse in my chest". At [place] the daughter believes her mother had a stress test but isn't sure. She also said they were considering a cath but decided against it at the last minute because her stress test was unchanged from a previous one a few yrs ago. The daughter brought the dc paperwork from [facility] and it is in the pt chart. ER course was notable for: (1) Pt given 2L NC and symptoms completely resolved (2) trop 0.06, BNP 1273.8 (3) EKG showed no acute ST abnormalities Recent Travel: denies PAST MEDICAL HISTORY: sthma/ COPD, diastolic CHF pEF, HTN, HLD, dementia PAST SURGICAL HISTORY: hysterectomy Social History: Smoking: former 1ppd smoker for 53y, quit last year Alcohol: denies Drugs: denies Allergies No Known Drug Allergies Allergy (Verified 08/08/19 01:31) Shellfish Allergy (Uncoded 08/08/19 01:31) HOME MEDICATIONS: Home Medications Medication Instructions Recorded Allopurinol [Zyloprim -] 100 mg PO DAILY 09/10/18 Donepezil HCl 10 mg PO HS 09/10/18 Calcium Carbonate [Calcium] 600 mg PO DAILY 07/17/19 Carvedilol [Coreg -] 3.125 mg PO BID 07/17/19 Ergocalciferol (Vitamin D2) 25 mcg PO DAILY 07/17/19 [Vitamin D2] Ferrous Sulfate 325 mg PO BID #60 tablet 07/25/19 REVIEW OF SYSTEMS CONSTITUTIONAL: Absent: fever, chills, diaphoresis, generalized weakness, malaise, loss of appetite, weight change HEENT: Absent: rhinorrhea, nasal congestion, throat pain, throat swelling, difficulty swallowing, mouth swelling, ear pain, eye pain, visual changes CARDIOVASCULAR: chest tightness-resolved with albuterol and O2 Absent: chest pain, syncope, palpitations, irregular heart rate, lightheadedness , peripheral edema RESPIRATORY: shortness of breath Absent: cough, dyspnea with exertion, orthopnea, wheezing, stridor, hemoptysis GASTROINTESTINAL: Absent: abdominal pain, abdominal distension, nausea, vomiting, diarrhea, constipation, melena, hematochezia GENITOURINARY: Absent: dysuria, frequency, urgency, hesitancy, hematuria, flank pain, genital pain MUSCULOSKELETAL: Absent: myalgia, arthralgia, joint swelling, back pain, neck pain SKIN: Absent: rash, itching, pallor HEMATOLOGIC/IMMUNOLOGIC: Absent: easy bleeding, easy bruising, lymphadenopathy, frequent infections ENDOCRINE: Absent: unexplained weight gain, unexplained weight loss, heat intolerance, cold intolerance NEUROLOGIC: Absent: headache, focal weakness or paresthesias, dizziness, unsteady gait, seizure, mental status changes, bladder or bowel incontinence PSYCHIATRIC: Absent: anxiety, depression, suicidal or homicidal ideation, hallucinations. PHYSICAL EXAMINATION Vital Signs - 24 hr 08/08/19 08/08/19 08/08/19 01:15 02:00 05:35 Temperature 98.8 F Pulse Rate 90 Pulse Rate [ 72 Radial] Respiratory 18 100 H Rate Blood Pressure 149/76 Blood Pressure 152/61 [Right Arm] O2 Sat by Pulse 99 100 100 Oximetry (%) GENERAL: Awake, alert, and oriented to self and location in no acute distress. HEAD: Normal with no signs of trauma. EYES: Pupils equal, round and reactive to light, extraocular movements intact, sclera anicteric, conjunctiva clear. No lid lag. EARS, NOSE, THROAT: Ears normal, nares patent, oropharynx clear without exudates. Moist mucous membranes, poor dentition. NECK: Normal range of motion, supple without lymphadenopathy, JVD, or masses. LUNGS: Breath sounds equal, clear to auscultation bilaterally. No wheezes, and no crackles. No accessory muscle use. HEART: Regular rate and rhythm, normal S1 and S2 without murmur, rub or gallop. ABDOMEN: Soft, nontender, not distended, normoactive bowel sounds, no guarding, no rebound, no masses. No hepatomegaly or splenomegaly. MUSCULOSKELETAL: Normal range of motion at all joints. No bony deformities or tenderness. No CVA tenderness. UPPER EXTREMITIES: 2+ pulses, warm, well-perfused. No cyanosis. No clubbing. No peripheral edema. LOWER EXTREMITIES: 2+ pulses, warm, well-perfused. No calf tenderness. 1+ peripheral edema. NEUROLOGICAL: Cranial nerves II-XII intact. Normal speech. PSYCHIATRIC: Cooperative. Good eye contact. Appropriate mood and affect. SKIN: Warm, dry, normal turgor, no rashes or lesions noted, normal capillary refill. Laboratory Results - last 24 hr 08/08/19 08/08/19 08/08/19 03:30 03:30 03:30 WBC 9.0 RBC 3.33 L Hgb 8.2 L Hct 26.0 L MCV 78.1 L MCH 24.6 L MCHC 31.6 L RDW 20.1 H Plt Count 314 MPV 9.4 PT with INR 12.40 INR 1.05 PTT (Actin FS) 25.0 L Sodium 140 Potassium 3.8 Chloride 108 H Carbon Dioxide 27 Anion Gap 5 L BUN 27.0 H Creatinine 1.3 Est GFR (CKD-EPI)AfAm 48.13 Est GFR (CKD-EPI)NonAf 41.53 POC Glucometer Random Glucose 101 Calcium 9.2 Magnesium 2.1 Total Bilirubin 0.3 AST 14 L ALT 14 Alkaline Phosphatase 115 Troponin I 0.06 H B-Natriuretic Peptide 1273.8 H Total Protein 7.0 Albumin 3.0 L 08/08/19 05:49 WBC RBC Hgb Hct MCV MCH MCHC RDW Plt Count MPV PT with INR INR PTT (Actin FS) Sodium Potassium Chloride Carbon Dioxide Anion Gap BUN Creatinine Est GFR (CKD-EPI)AfAm Est GFR (CKD-EPI)NonAf POC Glucometer 94 Random Glucose Calcium Magnesium Total Bilirubin AST ALT Alkaline Phosphatase Troponin I B-Natriuretic Peptide Total Protein Albumin ASSESSMENT/PLAN: 68 y.o. F PMH asthma/ COPD, diastolic CHF pEF, HTN, HLD, dementia presenting from home complaining of SOB and "chest tightness" # CP/ SOB- R/O ACS. May also be 2/2 TREY, pt was scheduled to have outpt sleep studies on d/c but was unable to do so due to recent hospitalization at [facility]. Pt has recent echo from last month, done here. May have had recent stress test at [facility], need to obtain records. -Telemetry observation -Trend troponins -Nitroglycerin sublingual chest pain - Obtain records from [facility] -Consider cardiology evaluation #FEN - no standing fluids for now - replete PRN - NPO for now until we obtain [facility] records/ pending cardiology eval #PPx DVT prophylaxis with heparin SQ #Dispo- tele obs Visit type - Emergency Visit Emergency Visit: Yes ED Registration Date: 08/08/19 Care time: The patient presented to the Emergency Department on the above date and was hospitalized for further evaluation of their emergent condition. - New Patient This patient is new to me today: Yes Date on this admission: 08/08/19 - Critical Care Critical Care patient: No ATTENDING PHYSICIAN STATEMENT I saw and evaluated the patient. I reviewed the resident's note and discussed the case with the resident. I agree with the resident's findings and plan as documented. SUBJECTIVE: OBJECTIVE: ASSESSMENT AND PLAN:
--- NOTE | 2019-08-08 09:26 | CON.CARD ---
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 Patient was noted to have recent stress test performed at [facility] which was allegedly within normal limits. She denies palpitations, paroxysmal nocturnal dyspnea or orthopnea, near or true syncope She had seen Dr. Mir Rayo ( Swimming Pool Service Technician) at [facility] in [place] in the past. She was recently admitted to [place] with COPD and diastolic CHF exacerbation, [facility] for hypertensive urgency 08/01/2019. 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 CAREGIVER: Yes: CVA, Dementia Cardio/Vascular: Yes: CHF (Diastolic dysfunction), HTN, Hyperlipdemia Pulmonary: Yes: Asthma, COPD Gastrointestinal: Yes: Diverticulitis - Past Surgical History Past Surgical History: Yes: Hysterectomy - Alcohol/Substance Use Hx Alcohol Use: No History of Substance Use: reports: None - Smoking History Smoking history: Never smoked Have you smoked in the past 12 months: No Aproximately how many cigarettes per day: 10 If you are a former smoker, when did you quit?: 2018 Home Medications - Allergies Allergies/Adverse Reactions: Allergies Allergy/AdvReac Type Severity Reaction Status Date / Time No Known Drug Allergies Allergy Verified 08/08/19 01:31 Shellfish Allergy Uncoded 08/08/19 01:31 - Home Medications Home Medications: Ambulatory Orders Allopurinol [Zyloprim -] 100 mg PO DAILY 09/10/18 Donepezil HCl 10 mg PO HS 09/10/18 Calcium Carbonate [Calcium] 600 mg PO DAILY 07/17/19 Carvedilol [Coreg -] 3.125 mg PO BID 07/17/19 Ergocalciferol (Vitamin D2) [Vitamin D2] 25 mcg PO DAILY 07/17/19 Ferrous Sulfate 325 mg PO BID #60 tablet 07/25/19 Review of Systems - Review of Systems Cardiovascular: reports: Chest Pain Respiratory: reports: SOB Vital Signs: Vital Signs Temperature 98.5 F 08/08/19 06:43 Pulse Rate 72 08/08/19 06:43 Respiratory Rate 18 08/08/19 06:43 Blood Pressure 144/55 L 08/08/19 06:43 O2 Sat by Pulse Oximetry (%) 100 08/08/19 06:43 Constitutional: Yes: No Distress, Calm Neck: Yes: Supple Respiratory: Yes: Regular, Diminished, On Nasal O2 Gastrointestinal: Yes: Normal Bowel Sounds, Soft, Abdomen, Obese Cardiovascular: Yes: Regular Rate and Rhythm JVD: No Carotid Bruit: No Heart Sounds: Yes: S1, S2 Murmur: Yes: Systolic Murmur, Grade 1 Edema: No - Other Data Labs, Other Data: CBC, BMP 08/08/19 03:30 08/08/19 03:30 INR, PTT INR 1.05 (0.83-1.09) 08/08/19 03:30 Troponin, BNP 08/08/19 03:30 Troponin I 0.06 H B-Natriuretic Peptide 1273.8 H Troponin, BNP 08/08/19 03:30 Troponin I 0.06 H B-Natriuretic Peptide 1273.8 H NSR @ [address] 1[address] deg AVB inferior Qs with fragmented QRS Echo: Report Reviewed Ejection Fraction %: LVEF > or = 40 % Problem List - Problems (1) Acute on chronic diastolic heart failure Code(s): I50.33 - ACUTE ON CHRONIC DIASTOLIC (CONGESTIVE) HEART FAILURE (2) Anemia Code(s): D64.9 - ANEMIA, UNSPECIFIED Qualifiers: Anemia type: iron deficiency (3) CKD (chronic kidney disease) Code(s): N18.9 - CHRONIC KIDNEY DISEASE, UNSPECIFIED Qualifiers: Chronic kidney disease stage: stage 2 (mild) Qualified Code(s): N18.2 - Chronic kidney disease, stage 2 (mild) (4) Cerebrovascular disease Code(s): I67.9 - CEREBROVASCULAR DISEASE, UNSPECIFIED (5) Dyspnea Code(s): R06.00 - DYSPNEA, UNSPECIFIED Qualifiers: Dyspnea type: orthopnea Qualified Code(s): R06.01 - Orthopnea (6) HTN (hypertension) Code(s): I10 - ESSENTIAL (PRIMARY) HYPERTENSION (7) Hypercholesteremia Code(s): E78.00 - PURE HYPERCHOLESTEROLEMIA, UNSPECIFIED (8) Morbid obesity Code(s): E66.01 - MORBID (SEVERE) OBESITY DUE TO EXCESS CALORIES (9) Respiratory failure with hypoxia Code(s): J96.91 - RESPIRATORY FAILURE, UNSPECIFIED WITH HYPOXIA Qualifiers: Chronicity: acute on chronic Qualified Code(s): J96.21 - Acute and chronic respiratory failure with hypoxia (10) Coronary artery disease Code(s): I25.10 - ATHSCL HEART DISEASE OF [place] CORONARY ARTERY W/O ANG PCTRS (11) Old inferolateral myocardial infarction Code(s): I25.2 - OLD MYOCARDIAL INFARCTION Assessment/Plan 07/2019 Echo [facility]: Normal LV size and fxn inferolateral and basalinferior RWMA 2012 LH: DIRECTOR OF PRODUCT DEVELOPMENT RCA 1. Shortness of breath due to acute on chronic LV diastolic failure (HFpEF) 2. CAD h/o CO, angina pectoris 3. COPD 4. HTN heart disease 5. Hypercholesterolemia 6. Cerebrovascular disease 7. 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 CKD 10. Colonic polyps and diverticulosis 11. OSAS suspect PLAN: 1. Ruling out CO 2. Continue current medical therapy including Carvedilol 6.25 mg BID, ASA 81 qd , Procardia XL and Lipitor 80 mg QHS 2. Diuretic (Lasix 40 qd) with monitoring renal function and electrolytes 3. Bronchodilator, O2, 4. Outpatient PSG 5. Obtain stress testing results from [facility] for review, if not performed then recommend Lexiscan Myoview to assess severity of CAD after r/o CO 6. Thank you for consultative opportunity
[2019-08-08] MEDS ORDERED: HEPARIN NA (PORCINE) 5,000 UNITS/ML 1ML VIAL SQ SCH (10:00)
--- NOTE | 2019-08-08 10:25 | EKG ---
Test Reason : Blood Pressure : / mmHG Vent. Rate : 082 BPM Atrial Rate : 082 BPM P-R Int : 226 ms QRS Dur : 118 ms QT Int : 390 ms P-R-T Axes : 052 045 049 degrees QTc Int : 455 ms SINUS RHYTHM WITH 1ST DEGREE A-V BLOCK POSSIBLE INFERIOR INFARCT (CITED ON OR BEFORE 09-SEP-2018) ABNORMAL ECG WHEN COMPARED WITH ECG OF 18-JUL-2019 07:55, [place] INTERVAL HAS INCREASED ST NO LONGER ELEVATED IN INFERIOR LEADS Confirmed by TRINH SINGLETARY, REX ([id number]) on 08/08/2019 10:25:44 AM Referred By: Confirmed By:REX TSANG MD
[2019-08-08] MEDS ORDERED: CARVEDILOL 6.25 MG TABLET (FP) PO SCH (10:45)
[2019-08-08] MEDS ORDERED: ASPIRIN 81 MG CHEWABLE TABLETS ONE (11:18)
[2019-08-08] MEDS ORDERED: CARVEDILOL 12.5 MG TABLET (FP) ONE (11:18)
[2019-08-08] MEDS: ASPIRIN 81 MG CHEWABLE TABLETS PO SCH (11:30)
[2019-08-08] MEDS ORDERED: ACETAMINOPHEN 325 MG TABLET (FP) PO ONE (11:58)
[2019-08-08] MEDS ORDERED: ACETAMINOPHEN 325 MG TABLET (FP) ONE (13:14)
[2019-08-08] MEDS: FUROSEMIDE 40 MG TABLET (FP) PO SCH (16:10)
[2019-08-08] MEDS: ALLOPURINOL 100 MG TABLET (FP) PO SCH (16:10)
[2019-08-08] MEDS: NIFEdipine E.R. 90 MG TABLET (FP) PO SCH (16:10)
--- NOTE | 2019-08-08 16:48 | PN ---
Teaching Attending Note Name of Resident: Matt Hall ATTENDING PHYSICIAN STATEMENT I saw and evaluated the patient. I reviewed the resident's note and discussed the case with the resident. I agree with the resident's findings and plan as documented with exceptions below . SUBJECTIVE: Patient seen and examined. No further chest pain or concerns. OBJECTIVE: Vital Signs Period Temp Pulse Resp BP Sys/Christensen Pulse Ox Last 24 Hr 98.5 F-98.8 F 72-90 18-100 144-152/55-76 99-100 Intake & Output 08/05/19 08/06/19 08/07/19 08/08/19 23:59 23:59 23:59 23:59 Weight 267 lb General: sitting in bed, no acute distress Chest: fine bibasilar rales, no wheezing, pos air entry Abdomen: soft, Obese, NT Extremities: no edema Home Medications Medication Instructions Recorded Allopurinol [Zyloprim -] 100 mg PO DAILY 09/10/18 Donepezil HCl 10 mg PO HS 09/10/18 Calcium Carbonate [Calcium] 600 mg PO DAILY 07/17/19 Ergocalciferol (Vitamin D2) 25 mcg PO DAILY 07/17/19 [Vitamin D2] Ferrous Sulfate 325 mg PO BID #60 tablet 07/25/19 Carvedilol 25 mg PO BID 08/08/19 Fluticasone Propion/Salmeterol 1 each IH BID 08/08/19 [Fluticasone-Salmeterol 500-50] Furosemide 40 mg PO DAILY 08/08/19 Nifedipine [Nifedipine ER] 90 mg PO DAILY 08/08/19 Active Medications Allopurinol (Zyloprim -) 100 mg PO DAILY [facility] Last Admin: 08/08/19 16:10 Dose: 100 mg Aspirin (Asa -) 81 mg PO DAILY [facility] Last Admin: 08/08/19 11:30 Dose: 81 mg Budesonide/Formoterol Fumarate (Symbicort 160/4.5mcg -) 2 puff IH BID [facility] Carvedilol (Coreg -) 25 mg PO BID [facility] Donepezil HCl (Aricept -) 10 mg PO HS [facility] Ferrous Sulfate (Feosol -) 325 mg PO BID [facility] Furosemide (Lasix -) 40 mg PO DAILY [facility] Last Admin: 08/08/19 16:10 Dose: 40 mg Heparin Sodium (Porcine) (Heparin -) 5,000 unit SQ BID [facility] Last Admin: 08/08/19 11:30 Dose: 5,000 unit Nifedipine (Procardia Xl -) 90 mg PO DAILY [facility] Last Admin: 08/08/19 16:10 Dose: 90 mg Laboratory Results - last 24 hr 08/08/19 08/08/19 08/08/19 03:30 03:30 03:30 WBC 9.0 RBC 3.33 L Hgb 8.2 L Hct 26.0 L MCV 78.1 L MCH 24.6 L MCHC 31.6 L RDW 20.1 H Plt Count 314 MPV 9.4 PT with INR 12.40 INR 1.05 PTT (Actin FS) 25.0 L Sodium 140 Potassium 3.8 Chloride 108 H Carbon Dioxide 27 Anion Gap 5 L BUN 27.0 H Creatinine 1.3 Est GFR (CKD-EPI)AfAm 48.13 Est GFR (CKD-EPI)NonAf 41.53 POC Glucometer Random Glucose 101 Calcium 9.2 Magnesium 2.1 Total Bilirubin 0.3 AST 14 L ALT 14 Alkaline Phosphatase 115 Troponin I 0.06 H B-Natriuretic Peptide 1273.8 H Total Protein 7.0 Albumin 3.0 L 08/08/19 08/08/19 05:49 09:30 WBC RBC Hgb Hct MCV MCH MCHC RDW Plt Count MPV PT with INR INR PTT (Actin FS) Sodium Potassium Chloride Carbon Dioxide Anion Gap BUN Creatinine Est GFR (CKD-EPI)AfAm Est GFR (CKD-EPI)NonAf POC Glucometer 94 Random Glucose Calcium Magnesium Total Bilirubin AST ALT Alkaline Phosphatase Troponin I 0.06 H B-Natriuretic Peptide Total Protein Albumin 07/2019 Echo [facility]: Normal LV size and fxn inferolateral and basalinferior RWMA 2012 LH: PHYSICIAN OBSTETRICIAN RCA ASSESSMENT AND PLAN: 68 yof with PMHx of COPD/bronchial asthma, acute on chronic diastolic heart failure (HFpEF), HTN, hypercholesterolemia, CAD h/o [place], 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 Stress test. ASA/statin/coreg. BP improved. Nifedipine/PO lasix. Home oxygen needs assessment prior to dc. DVTPPX heparin Dispo pending cardiac w/u Plan discussed with patient and daughter at bedside in detail, all questions answered.
--- NOTE | 2019-08-08 17:21 | PN ---
Physical Exam: SUBJECTIVE: Patient seen and examined Denies CP, SOB. Chest tightness improved with breathing treatment OBJECTIVE: Vital Signs Period Temp Pulse Resp BP Sys/Christensen Pulse Ox Last 24 Hr 98.5 F-98.8 F 67-90 18-100 139-152/55-76 98-100 GENERAL: The patient is awake, alert. NAD HEAD: Normal with no signs of trauma. EYES: sclera anicteric, mild conjunctival pallor. ENT: Ears normal, nares patent, moist mucous membranes. Missing tooth at midline lower jaw. NECK: Trachea midline, full range of motion, supple. LUNGS: b/l expiratory wheezes, no accessory muscle use. Breathing comfortably on NC 2L. Speaking in full sentences HEART: Regular rate and rhythm, S1, S2 without murmur, rub or gallop. ABDOMEN: Soft, nontender, nondistended, no guarding, no rebound. EXTREMITIES: 2+ pulses, warm, well-perfused, 1+ edema to BLE NEUROLOGICAL: Normal speech PSYCH: Normal mood, normal affect. SKIN: Warm, dry, normal turgor, no rashes or lesions noted Laboratory Results - last 24 hr 08/08/19 08/08/19 08/08/19 03:30 03:30 03:30 WBC 9.0 RBC 3.33 L Hgb 8.2 L Hct 26.0 L MCV 78.1 L MCH 24.6 L MCHC 31.6 L RDW 20.1 H Plt Count 314 MPV 9.4 PT with INR 12.40 INR 1.05 PTT (Actin FS) 25.0 L Sodium 140 Potassium 3.8 Chloride 108 H Carbon Dioxide 27 Anion Gap 5 L BUN 27.0 H Creatinine 1.3 Est GFR (CKD-EPI)AfAm 48.13 Est GFR (CKD-EPI)NonAf 41.53 POC Glucometer Random Glucose 101 Calcium 9.2 Magnesium 2.1 Total Bilirubin 0.3 AST 14 L ALT 14 Alkaline Phosphatase 115 Troponin I 0.06 H B-Natriuretic Peptide 1273.8 H Total Protein 7.0 Albumin 3.0 L 08/08/19 08/08/19 05:49 09:30 WBC RBC Hgb Hct MCV MCH MCHC RDW Plt Count MPV PT with INR INR PTT (Actin FS) Sodium Potassium Chloride Carbon Dioxide Anion Gap BUN Creatinine Est GFR (CKD-EPI)AfAm Est GFR (CKD-EPI)NonAf POC Glucometer 94 Random Glucose Calcium Magnesium Total Bilirubin AST ALT Alkaline Phosphatase Troponin I 0.06 H B-Natriuretic Peptide Total Protein Albumin Active Medications Generic Name Dose Route Start Last Admin Trade Name Nely PRN Reason Stop Dose Admin Allopurinol 100 mg 08/08/19 14:30 08/08/19 16:10 Zyloprim - PO 100 mg DAILY ARA Administration Aspirin 81 mg 08/08/19 10:45 08/08/19 11:30 Asa - PO 81 mg DAILY ARA Administration Budesonide/Formoterol Fumarate 2 puff 08/08/19 22:00 Symbicort 160/4.5mcg - IH BID ARA Carvedilol 25 mg 08/08/19 22:00 Coreg - PO BID ARA Donepezil HCl 10 mg 08/08/19 22:00 Aricept - PO HS ARA Ferrous Sulfate 325 mg 08/08/19 22:00 Feosol - PO BID ARA Furosemide 40 mg 08/08/19 14:30 08/08/19 16:10 Lasix - PO 40 mg DAILY ARA Administration Heparin Sodium (Porcine) 5,000 unit 08/08/19 22:00 Heparin - SQ TID ARA Nifedipine 90 mg 08/08/19 14:30 08/08/19 16:10 Procardia Xl - PO 90 mg DAILY ARA Administration ASSESSMENT/PLAN: 68 y.o. F PMH asthma/ COPD, HFpEF, CAD(RCA PRESS BUCKER), HTN, HLD, dementia. Recent hospital visit at [facility] for chest pain, had HTN emergency w/ SBP >200. Had TTE that was normal. Discharged home w/ Nifedipine. Presents to [facility] for chest tightness in middle of night. Admitted for ACS r/o. # CP/ SOB- R/O ACS. May also be 2/2 TREY, pt was scheduled to have outpt sleep studies on d/c but was unable to do so due to recent hospitalization at [facility]. Pt has recent echo from last month, done here. May have had recent stress test at [facility], need to obtain records. > troponin: 0.06, 0.06 > BNP: 1273 - Telemetry observation - Cardio Consult: --rec stress test, possibbly 08/09/19 #HFpEF - cw home meds(carvedilol 25mg BID, lasix 40mg QD) #Dementia - cw home donepezil #FEN - diabetic/sodium diet; NPO at [place] - no standing fluids for now - replete PRN #PPx DVT prophylaxis with heparin SQ #Dispo- tele obs Visit type - Emergency Visit Emergency Visit: No - New Patient This patient is new to me today: No - Critical Care Critical Care patient: No ATTENDING PHYSICIAN STATEMENT I saw and evaluated the patient. I reviewed the resident's note and discussed the case with the resident. I agree with the resident's findings and plan as documented. SUBJECTIVE: OBJECTIVE: ASSESSMENT AND PLAN:
[2019-08-08] MEDS ORDERED: DONEPEZIL HCL 10 MG TABLET (FP) PO SCH (22:00)
[2019-08-08] MEDS: CARVEDILOL 25 MG TABLET (FP) PO SCH (22:56)
[2019-08-08] MEDS: BUDESONIDE/FORMETEROL FUMARATE 160/4.5 mcg INHALER IH SCH (22:57)
[2019-08-08] MEDS: HEPARIN NA (PORCINE) 5,000 UNITS/ML 1ML VIAL SQ SCH (22:57)
[2019-08-08] MEDS: FERROUS SO4 325 MG TABLET (FP) PO SCH (22:57)
[2019-08-09 02:54] VITALS: BMI 42.5
[2019-08-09] MEDS: HEPARIN NA (PORCINE) 5,000 UNITS/ML 1ML VIAL SQ SCH ×2 (06:53→13:22)
[2019-08-09 07:43] LABS: HEMOGLOBIN 8.2 GM/dL (10.7-15.3); MCH 24.7 pg (25.7-33.7); MCHC 31.5 g/dl (32.0-36.0); MEAN CELL VOLUME 78.4 fl (80-96); MEAN PLT VOLUME 9.6 fl (7.5-11.1); MONO % 5.8 % (3.8-10.2); NEUT % 66.2 % (42.8-82.8); PLATELET COUNT 314 K/MM3 (134-434); RBC 3.32 M/mm3 (3.60-5.2); RDW 20.2 % (11.6-15.6); WHITE BLOOD COUNT 7.6 K/mm3 (4.0-10.0)
[2019-08-09 08:06] LABS: ALBUMIN 2.9 g/dl (3.4-5.0); BILIRUBIN,TOTAL 0.3 mg/dL (0.2-1); BLOOD UREA NITROGEN 26.2 mg/dL (7-18); CALCIUM 9.1 mg/dL (8.5-10.1); CREATININE 1.3 mg/dL (0.55-1.3); MAGNESIUM 2.3 mg/dL (1.8-2.4); PHOSPHOROUS 3.9 mg/dL (2.5-4.9); POTASSIUM 4.2 mmol/L (3.5-5.1)
[2019-08-09] MEDS ORDERED: ALBUTEROL SO4 2.5/IPRATROPIUM 0.5 INH SOL 3 ML VIAL.NEB. NEB PRN (08:57)
[2019-08-09] MEDS ORDERED: REGADENOSON 0.4 MG/5 ML PRE-FILLED SYRINGE IVPUSH ONE ×2 (09:30→10:27)
--- NOTE | 2019-08-09 09:33 | PN ---
Teaching Attending Note Name of Resident: Matt Hall ATTENDING PHYSICIAN STATEMENT I saw and evaluated the patient. I reviewed the resident's note and discussed the case with the resident. I agree with the resident's findings and plan as documented with exceptions below. SUBJECTIVE: Patient seen and examined. no further chest pain or concerns. OBJECTIVE: Vital Signs Period Temp Pulse Resp BP Sys/Christensen Pulse Ox Last 24 Hr 97.4 F-98 F 67-82 18-22 121-142/58-71 98-100 Intake & Output 08/06/19 08/07/19 08/08/19 08/09/19 23:59 23:59 23:59 23:59 Intake Total 10 Balance 10 Weight 271 lb 6.4 oz 270 lb General: sitting in bed in no acute distress Chest: few basilar rales, Abdomen:Soft, obese, Extremities: no edema Home Medications Medication Instructions Recorded Allopurinol [Zyloprim -] 100 mg PO DAILY 09/10/18 Donepezil HCl 10 mg PO HS 09/10/18 Calcium Carbonate [Calcium] 600 mg PO DAILY 07/17/19 Ergocalciferol (Vitamin D2) 25 mcg PO DAILY 07/17/19 [Vitamin D2] Ferrous Sulfate 325 mg PO BID #60 tablet 07/25/19 Carvedilol 25 mg PO BID 08/08/19 Fluticasone Propion/Salmeterol 1 each IH BID 08/08/19 [Fluticasone-Salmeterol 500-50] Furosemide 40 mg PO DAILY 08/08/19 Nifedipine [Nifedipine ER] 90 mg PO DAILY 08/08/19 Active Medications Albuterol/Ipratropium (Duoneb -) 1 amp NEB Q6H PRN PRN Reason: SHORTNESS OF BREATH Allopurinol (Zyloprim -) 100 mg PO DAILY [facility] Last Admin: 08/08/19 16:10 Dose: 100 mg Aspirin (Asa -) 81 mg PO DAILY [facility] Last Admin: 08/08/19 11:30 Dose: 81 mg Budesonide/Formoterol Fumarate (Symbicort 160/4.5mcg -) 2 puff IH BID [facility] Last Admin: 08/08/19 22:57 Dose: Not Given Carvedilol (Coreg -) 25 mg PO BID [facility] Last Admin: 08/08/19 22:56 Dose: 25 mg Donepezil HCl (Aricept -) 10 mg PO HS [facility] Last Admin: 08/08/19 22:56 Dose: 10 mg Ferrous Sulfate (Feosol -) 325 mg PO BID [facility] Last Admin: 08/08/19 22:57 Dose: 325 mg Furosemide (Lasix -) 40 mg PO DAILY [facility] Last Admin: 08/08/19 16:10 Dose: 40 mg Heparin Sodium (Porcine) (Heparin -) 5,000 unit SQ TID [facility] Last Admin: 08/09/19 06:53 Dose: 5,000 unit Nifedipine (Procardia Xl -) 90 mg PO DAILY [facility] Last Admin: 08/08/19 16:10 Dose: 90 mg Laboratory Results - last 24 hr 08/08/19 08/09/19 08/09/19 09:30 05:30 05:30 WBC 7.6 RBC 3.32 L Hgb 8.2 L Hct 26.0 L MCV 78.4 L MCH 24.7 L MCHC 31.5 L RDW 20.2 H Plt Count 314 MPV 9.6 Absolute Neuts (auto) 5.0 Neutrophils % 66.2 Lymphocytes % 22.0 Monocytes % 5.8 Eosinophils % 5.0 H Basophils % 1.0 Nucleated RBC % 0 Sodium 141 Potassium 4.2 Chloride 107 Carbon Dioxide 28 Anion Gap 5 L BUN 26.2 H Creatinine 1.3 Est GFR (CKD-EPI)AfAm 48.13 Est GFR (CKD-EPI)NonAf 41.53 POC Glucometer Random Glucose 93 Calcium 9.1 Phosphorus 3.9 Magnesium 2.3 Total Bilirubin 0.3 AST 15 ALT 14 Alkaline Phosphatase 116 Troponin I 0.06 H Total Protein 7.0 Albumin 2.9 L 08/09/19 06:38 WBC RBC Hgb Hct MCV MCH MCHC RDW Plt Count MPV Absolute Neuts (auto) Neutrophils % Lymphocytes % Monocytes % Eosinophils % Basophils % Nucleated RBC % Sodium Potassium Chloride Carbon Dioxide Anion Gap BUN Creatinine Est GFR (CKD-EPI)AfAm Est GFR (CKD-EPI)NonAf POC Glucometer 84 Random Glucose Calcium Phosphorus Magnesium Total Bilirubin AST ALT Alkaline Phosphatase Troponin I Total Protein Albumin Telemetry: no events ASSESSMENT AND PLAN: 68 yof with PMHx of COPD/bronchial asthma, acute on chronic diastolic heart failure (HFpEF), HTN, hypercholesterolemia, CAD h/o DE, 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 Stress test. ASA/statin/coreg. BP improved. Nifedipine/PO lasix. Home oxygen needs assessment prior to dc. DVTPPX heparin Dispo pending cardiac w/u Plan discussed with patient, all questions answered.
--- NOTE | 2019-08-09 10:09 | PN ---
Progress Note, Physician History of Present Illness: Denies further shortness of breath and chest pressure, ruled out AL, awaiting Lexiscan Myoview. - Current Medication List Current Medications: Active Medications Albuterol/Ipratropium (Duoneb -) 1 amp NEB Q6H PRN PRN Reason: SHORTNESS OF BREATH Allopurinol (Zyloprim -) 100 mg PO DAILY [facility] Last Admin: 08/08/19 16:10 Dose: 100 mg Aspirin (Asa -) 81 mg PO DAILY [facility] Last Admin: 08/08/19 11:30 Dose: 81 mg Budesonide/Formoterol Fumarate (Symbicort 160/4.5mcg -) 2 puff IH BID [facility] Last Admin: 08/08/19 22:57 Dose: Not Given Carvedilol (Coreg -) 25 mg PO BID [facility] Last Admin: 08/08/19 22:56 Dose: 25 mg Donepezil HCl (Aricept -) 10 mg PO HS [facility] Last Admin: 08/08/19 22:56 Dose: 10 mg Ferrous Sulfate (Feosol -) 325 mg PO BID [facility] Last Admin: 08/08/19 22:57 Dose: 325 mg Furosemide (Lasix -) 40 mg PO DAILY [facility] Last Admin: 08/08/19 16:10 Dose: 40 mg Heparin Sodium (Porcine) (Heparin -) 5,000 unit SQ TID [facility] Last Admin: 08/09/19 06:53 Dose: 5,000 unit Nifedipine (Procardia Xl -) 90 mg PO DAILY [facility] Last Admin: 08/08/19 16:10 Dose: 90 mg - Objective Vital Signs: Vital Signs Temperature 98 F 08/09/19 09:00 Pulse Rate 70 08/09/19 09:00 Respiratory Rate 18 08/09/19 09:00 Blood Pressure 130/64 08/09/19 09:00 O2 Sat by Pulse Oximetry (%) 100 08/08/19 22:30 Constitutional: Yes: No Distress, Calm Neck: Yes: Supple Cardiovascular: Yes: Regular Rate and Rhythm Respiratory: Yes: Regular, CTA Bilaterally Gastrointestinal: Yes: Normal Bowel Sounds, Soft Edema: No Labs: CBC, BMP 08/09/19 05:30 08/09/19 05:30 INR, PTT INR 1.05 (0.83-1.09) 08/08/19 03:30 Problem List - Problems (1) Acute on chronic diastolic heart failure Code(s): I50.33 - ACUTE ON CHRONIC DIASTOLIC (CONGESTIVE) HEART FAILURE (2) Anemia Code(s): D64.9 - ANEMIA, UNSPECIFIED Qualifiers: Anemia type: iron deficiency (3) CKD (chronic kidney disease) Code(s): N18.9 - CHRONIC KIDNEY DISEASE, UNSPECIFIED Qualifiers: Chronic kidney disease stage: stage 2 (mild) Qualified Code(s): N18.2 - Chronic kidney disease, stage 2 (mild) (4) Cerebrovascular disease Code(s): I67.9 - CEREBROVASCULAR DISEASE, UNSPECIFIED (5) Dyspnea Code(s): R06.00 - DYSPNEA, UNSPECIFIED Qualifiers: Dyspnea type: orthopnea Qualified Code(s): R06.01 - Orthopnea (6) HTN (hypertension) Code(s): I10 - ESSENTIAL (PRIMARY) HYPERTENSION (7) Hypercholesteremia Code(s): E78.00 - PURE HYPERCHOLESTEROLEMIA, UNSPECIFIED (8) Morbid obesity Code(s): E66.01 - MORBID (SEVERE) OBESITY DUE TO EXCESS CALORIES (9) Respiratory failure with hypoxia Code(s): J96.91 - RESPIRATORY FAILURE, UNSPECIFIED WITH HYPOXIA Qualifiers: Chronicity: acute on chronic Qualified Code(s): J96.21 - Acute and chronic respiratory failure with hypoxia (10) Coronary artery disease Code(s): I25.10 - ATHSCL HEART DISEASE OF [place] CORONARY ARTERY W/O ANG PCTRS (11) Old inferolateral myocardial infarction Code(s): I25.2 - OLD MYOCARDIAL INFARCTION Assessment/Plan 07/2019 Echo [facility]: Normal LV size and fxn inferolateral and basalinferior RWMA 2012 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 Shortness of breath due to acute on chronic LV diastolic failure (HFpEF) 2. 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 COPD 4. HTN heart disease 5. Hypercholesterolemia 6. Cerebrovascular disease 7. 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 CKD 10. Colonic polyps and diverticulosis 11. OSAS suspect PLAN: 1. Trops plateaued 2. Continue current medical therapy including Carvedilol 25 mg BID, ASA 81 qd, Procardia XL 90 qd and Lipitor 80 mg QHS 2. Diuretic (Lasix 40 qd) with monitoring renal function and electrolytes 3. Bronchodilator, O2 as needed 4. Outpatient PSG 5. F/u Lexiscan Myoview to assess severity of CAD after r/o AL
[2019-08-09] MEDS: ASPIRIN 81 MG CHEWABLE TABLETS PO SCH (13:23)
[2019-08-09] MEDS: FUROSEMIDE 40 MG TABLET (FP) PO SCH (13:23)
[2019-08-09] MEDS: FERROUS SO4 325 MG TABLET (FP) PO SCH (13:23)
[2019-08-09] MEDS: CARVEDILOL 25 MG TABLET (FP) PO SCH (13:23)
[2019-08-09] MEDS: ALLOPURINOL 100 MG TABLET (FP) PO SCH (13:23)
[2019-08-09] MEDS: NIFEdipine E.R. 90 MG TABLET (FP) PO SCH (13:24)
[2019-08-09 13:43] VITALS: BP 142/57; TEMP 98.2
[2019-08-09 13:48] VITALS: PULSE 104
[2019-08-09] MEDS: BUDESONIDE/FORMETEROL FUMARATE 160/4.5 mcg INHALER IH SCH (15:17)
--- NOTE | 2019-08-09 19:26 | DS ---
Physical Exam: SUBJECTIVE: Patient seen and examined OBJECTIVE: Vital Signs Period Temp Pulse Resp BP Sys/Christensen Pulse Ox Last 24 Hr 97.4 F-98.2 F 70-104 18-22 121-142/57-71 92-100 PHYSICAL EXAM GENERAL: The patient is awake, alert. NAD HEAD: Normal with no signs of trauma. EYES: sclera anicteric, mild conjunctival pallor. ENT: Ears normal, nares patent, moist mucous membranes. Missing tooth at midline lower jaw. NECK: Trachea midline, full range of motion, supple. LUNGS: b/l expiratory wheezes, no accessory muscle use. Breathing comfortably on NC 2L. Speaking in full sentences HEART: Regular rate and rhythm, S1, S2 without murmur, rub or gallop. ABDOMEN: Soft, nontender, nondistended, no guarding, no rebound. EXTREMITIES: 2+ pulses, warm, well-perfused, 1+ edema to BLE NEUROLOGICAL: Normal speech PSYCH: Normal mood, normal affect. SKIN: Warm, dry, normal turgor, no rashes or lesions noted LABS Laboratory Results - last 24 hr 08/09/19 08/09/19 08/09/19 05:30 05:30 06:38 WBC 7.6 RBC 3.32 L Hgb 8.2 L Hct 26.0 L MCV 78.4 L MCH 24.7 L MCHC 31.5 L RDW 20.2 H Plt Count 314 MPV 9.6 Absolute Neuts (auto) 5.0 Neutrophils % 66.2 Lymphocytes % 22.0 Monocytes % 5.8 Eosinophils % 5.0 H Basophils % 1.0 Nucleated RBC % 0 Sodium 141 Potassium 4.2 Chloride 107 Carbon Dioxide 28 Anion Gap 5 L BUN 26.2 H Creatinine 1.3 Est GFR (CKD-EPI)AfAm 48.13 Est GFR (CKD-EPI)NonAf 41.53 POC Glucometer 84 Random Glucose 93 Calcium 9.1 Phosphorus 3.9 Magnesium 2.3 Total Bilirubin 0.3 AST 15 ALT 14 Alkaline Phosphatase 116 Total Protein 7.0 Albumin 2.9 L HOSPITAL COURSE: 68 y.o. 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 Recent hospital visit at [facility] for chest pain, had HTN emergency w/ SBP >200. Had TTE that was normal. Discharged home w/ Nifedipine. Presents to [facility] for chest tightness in middle of night. Admitted for ACS r/o. Received breathing treatment. Regular home BD, lasix prescribed. Troponin trend neg. BNP 1273. Tele w/o abnorm. Cardio consult for troponins. Stress test neg. Pre- and post- resulting as 92%. No home O2 prescribed. Stable for d/c home without new meds. Date of Admission:08/08/19 Date of Discharge: 08/09/19 Minutes to complete discharge: 20 Discharge Summary Problems reviewed: Yes Reason For Visit: CHEST PAIN Condition: Stable - Instructions Diet, Activity, Other Instructions: You were evaluated in the hospital for chest tightness. Your symptoms improved after a breathing treatment. The general assembler was consulted and recommended a cardiac stress test to evaluate your heart. Testing was normal. Testing with our Respiratory Therapist determined that you did not need supplemental oxygen. Medications: - Please resume your regular home medications - No new medications were prescribed. Please follow-up with the physicians below: - Project Controls Scheduler(Dr Mohan Rosado): to discuss your cardiology test results in detail and possible need for future routine testing - Primary care doctor within 1 week. Activities: - diet: heart-healthy diet(low sugar, low fat, low sodium, high fiber) - activity: activity as tolerated - keep a log of your daily morning weights. If you gain more than >3lbs in 2 days, please notify your doctor immediately Please seek medical evaluation or go to the Emergency Department if you experience: - severe shortness of breath, trouble breathing, cough - gain in weight, please tell your PCP or general assembler if you have gained more than 5lbs Referrals: Manju Dickson MD [Primary Care Provider] - 1 Week Mohan Rosado MD [Staff Physician] - 1 Week Disposition: VNS/HOME HEALTH CARE - Home Medications Comprehensive Discharge Medication List: Ambulatory Orders Allopurinol [Zyloprim -] 100 mg PO DAILY 09/10/18 Donepezil HCl 10 mg PO HS 09/10/18 Calcium Carbonate [Calcium] 600 mg PO DAILY 07/17/19 Ergocalciferol (Vitamin D2) [Vitamin D2] 25 mcg PO DAILY 07/17/19 Ferrous Sulfate 325 mg PO BID #60 tablet 07/25/19 Carvedilol 25 mg PO BID 08/08/19 Fluticasone Propion/Salmeterol [Fluticasone-Salmeterol 500-50] 1 each IH BID 03/21 Furosemide 40 mg PO DAILY 08/08/19 Nifedipine [Nifedipine ER] 90 mg PO DAILY 08/08/19 Albuterol 0.083% Nebulizer Malorie [Ventolin 0.083% Nebulizer Soln -] 1 neb NEB Q4H PRN 08/09/19 Aspirin [ASA -] 81 mg PO DAILY tab.chew 08/09/19 This patient is new to me today: No Emergency Visit: No Critical Care patient: No - Discharge Referral Referred to [facility] Med P.C.: No ATTENDING PHYSICIAN STATEMENT I saw and evaluated the patient. I reviewed the resident's note and discussed the case with the resident. I agree with the resident's findings and plan as documented. SUBJECTIVE: OBJECTIVE: ASSESSMENT AND PLAN:
== END 2019-08-09 17:16 | disposition home health service (06) ==
LOC: JER 01:13 → JERBED 04:10 → J4W 22:32
PROVIDERS: ADMIT Internal Medicine; ATTEND Hospitalist
PROC: 3E033GC Introduction of Other Therapeutic Substance into Peripheral Vein, Percutaneous Approach (ICD-10-PCS; principal; 2019-08-08)
PROC: 3E013GC Introduction of Other Therapeutic Substance into Subcutaneous Tissue, Percutaneous Approach (ICD-10-PCS; 2019-08-08)
PROC: 3E0F7GC Introduction of Other Therapeutic Substance into Respiratory Tract, Via Natural or Artificial Opening (ICD-10-PCS; 2019-08-08)
DX: R07.89 Other chest pain (principal); I11.0 Hypertensive heart disease with heart failure; I50.33 Acute on chronic diastolic (congestive) heart failure; I25.10 Atherosclerotic heart disease of native coronary artery without angina pectoris; I25.2 Old myocardial infarction; E78.5 Hyperlipidemia, unspecified; R73.03 Prediabetes; J44.9 Chronic obstructive pulmonary disease, unspecified; D64.9 Anemia, unspecified; I12.9 Hypertensive chronic kidney disease with stage 1 through stage 4 chronic kidney disease, or unspecified chronic kidney disease; N18.9 Chronic kidney disease, unspecified; R06.00 Dyspnea, unspecified; Z86.73 Personal history of transient ischemic attack (TIA), and cerebral infarction without residual deficits; Z91.013 Allergy to seafood; Z86.69 Personal history of other diseases of the nervous system and sense organs
CPT/HCPCS: 36415; 71045-TC-FY; 78452-TC; 80053; 82962; 83735; 83880; 84100; 84484; 85025; 85027; 85610; 85730; 93005; 93010; 93017; 94640; 94761; 96372; 96374; 99285-25; A9502; G0378; J1644; J2785

== ENCOUNTER 2019-08-11 02:10 | Inpatient (IN) | payer OTHER ==
[2019-08-11] MEDS ORDERED: methylPREDNISolone NA SUCC 125 MG/2 ML VIAL IVPB ONE (03:05)
[2019-08-11] MEDS ORDERED: ALBUTEROL SO4 2.5/IPRATROPIUM 0.5 INH SOL 3 ML VIAL.NEB. NEB PRN (03:05)
[2019-08-11] MEDS ORDERED: methylPREDNISolone NA SUCC 125 MG/2 ML VIAL ONE (03:18)
[2019-08-11] MEDS ORDERED: ALBUTEROL SO4 2.5/IPRATROPIUM 0.5 INH SOL 3 ML VIAL.NEB. NEB ONE (03:18)
[2019-08-11 03:42] LABS: BASO % 1.6 % (0-2.0); HEMATOCRIT 26.3 % (32.4-45.2); HEMOGLOBIN 8.3 GM/dL (10.7-15.3); LYMPH % 20.7 % (8-40); MCH 24.5 pg (25.7-33.7); MCHC 31.6 g/dl (32.0-36.0); MEAN CELL VOLUME 77.6 fl (80-96); MONO % 7.8 % (3.8-10.2); NEUT % 65.9 % (42.8-82.8); PLATELET COUNT 323 K/MM3 (134-434); RBC 3.39 M/mm3 (3.60-5.2)
[2019-08-11 03:46] LABS: VENOUS PC02 44.8 mmHg (38-52)
[2019-08-11 03:47] LABS: VENOUS PO2 < 49 mmHg (28-48)
--- NOTE | 2019-08-11 03:51 | PDOC ---
History of Present Illness - General Chief Complaint: Shortness of Breath Stated Complaint: SOB,COPD Time Seen by Provider: 08/11/19 02:26 History Source: Patient, Family - History of Present Illness Initial Comments: 08/11/19 03:51 68 yo F PMH asthma/ COPD, diastolic CHFpEF, HTN, HLD, CVA, dementia presenting from home complaining of SOB and "chest tightness", daughter was also at bedside to help give history. Per the patient she was at home laying in bed, when she got up to use the bathroom she became very short of breath. The patient stated she tried to use her inhaler but the symptoms did not improve. Pt was recently d/c from [facility] on 08/08/19 and felt well on DC. Pt states this is sudden onset. Pt states she feels better now that she has the oxygen. she states she typically gets short of breath when she walks around. She denies f/ c/n/v. denies palpitations, headache, dizziness. Past History - Past Medical History Allergies/Adverse Reactions: Allergies Allergy/AdvReac Type Severity Reaction Status Date / Time No Known Drug Allergies Allergy Verified 08/11/19 02:24 Shellfish Allergy Uncoded 08/11/19 02:24 Home Medications: Ambulatory Orders Allopurinol [Zyloprim -] 100 mg PO DAILY 09/10/18 Donepezil HCl 10 mg PO HS 09/10/18 Calcium Carbonate [Calcium] 600 mg PO DAILY 07/17/19 Ergocalciferol (Vitamin D2) [Vitamin D2] 25 mcg PO DAILY 07/17/19 Ferrous Sulfate 325 mg PO BID #60 tablet 07/25/19 Carvedilol 25 mg PO BID 08/08/19 Fluticasone Propion/Salmeterol [Fluticasone-Salmeterol 500-50] 1 each IH BID 03/21 Furosemide 40 mg PO DAILY 08/08/19 Nifedipine [Nifedipine ER] 90 mg PO DAILY 08/08/19 Albuterol 0.083% Nebulizer Malorie [Ventolin 0.083% Nebulizer Soln -] 1 neb NEB Q4H PRN 08/09/19 Aspirin [ASA -] 81 mg PO DAILY tab.chew 08/09/19 Asthma: Yes CVA: Yes COPD: Yes CHF: Yes Dementia: Yes HTN: Yes Hypercholesterolemia: Yes Seizures: Yes (EPILEPTIC SEIZURES - RECENT 2012; not on meds) - Immunization History Immunization Up to Date: Yes - Psycho Social/Smoking Cessation Hx Smoking Status: No Smoking History: Former smoker Have you smoked in the past 12 months: No Number of Cigarettes Smoked Daily: 10 If you are a former smoker, when did you quit?: 2018 Information on smoking cessation initiated: No 'Breaking Loose' booklet given: 09/10/18 Hx Alcohol Use: No Drug/Substance Use Hx: No Substance Use Type: None Hx Substance Use Treatment: No Review of Systems - Review of Systems Constitutional: No: Chills, Fever HEENTM: No: Throat Swelling Respiratory: Yes: Shortness of Breath, SOB with Exertion. No: Cough, Hemoptysis Cardiac (ROS): Yes: Chest Tightness. No: Chest Pain, Palpitations ABD/GI: No: Nausea, Vomiting Neurological: Yes: Unsteady Gait, Dizziness. No: Headache *Physical Exam - Vital Signs Last Vital Signs Temp Pulse Resp BP Pulse Ox 97.9 F 95 H 20 175/73 H 97 08/11/19 02:19 08/11/19 02:19 08/11/19 02:19 08/11/19 02:19 08/11/19 02:19 - Physical Exam General Appearance: Yes: Nourished, Appropriately Dressed HEENT: positive: Normal Voice Neck: negative: Lymphadenopathy (R), Lymphadenopathy (L) Respiratory/Chest: positive: Lungs Clear, Decreased Breath Sounds (decreased at bases ). negative: Respiratory Distress, Accessory Muscle Use, Crackles, Wheezing Cardiovascular: positive: Regular Rhythm, Regular Rate, S1, S2. negative: JVD Gastrointestinal/Abdominal: positive: Normal Bowel Sounds, Soft. negative: Tender, Distended Musculoskeletal: negative: CVA Tenderness Extremity: positive: Pedal Edema (2+ b/l), Swelling, Erythema Integumentary: positive: Normal Color, Dry, Warm Neurologic: positive: estate planning counselor II-XII NML intact ED Treatment Course - LABORATORY CBC & Chemistry Diagram: 08/11/19 09:04 08/11/19 09:04 - ADDITIONAL ORDERS Additional order review: Laboratory Results 08/11/19 03:00 VBG pH 7.40 POC VBG pCO2 44.8 POC VBG pO2 < 49 H VBG HCO3 26.8 VBG O2 Sat (Mu) 68.4 L VBG Base Excess 2.2 H 08/11/19 03:00 RBC 3.39 L MCV 77.6 L MCHC 31.6 L RDW 20.0 H MPV 9.0 Neutrophils % 65.9 Lymphocytes % 20.7 Monocytes % 7.8 Eosinophils % 4.0 Basophils % 1.6 - RADIOLOGY Radiology Studies Ordered: Category Date Time Status CHEST X-RAY PORTABLE* [RAD] Stat Radiology 08/11/19 03:04 Ordered - Medications Given in the ED: ED Medications Discontinued Medications Generic Name Dose Route Start Last Admin Trade Name Freq PRN Reason Stop Dose Admin Methylprednisolone Sodium Succinate 125 mg 08/11/19 03:05 08/11/19 03:37 Solu-Medrol - IVPB 08/11/19 03:06 125 mg ONCE ONE Administration Medical Decision Making - Medical Decision Making 08/11/19 03:57 68 yo F with SOB -likely COPD exac vs acute HF exac -CBC,CMP, Mg, Phos -CXR -EKG -Duonebs, solumedrol -pre /post. pt sats 92-94 w/o NC. on ambulation sats 86% w/ SOB -BNP -TSH 08/11/19 04:00 -VBG reviewed, pt not retaining CO2 -Hgb at baseline, anemia 08/11/19 05:27 - resting sat 93% post duonebs Discharge - Discharge Information Problems reviewed: Yes Clinical Impression/Diagnosis: CHF (congestive heart failure) - Follow up/Referral - Patient Discharge Instructions - Post Discharge Activity
[2019-08-11 04:05] LABS: N-TERMINAL BNP 2440.8 pg/ml (5-125)
[2019-08-11 04:13] LABS: BILIRUBIN,TOTAL 0.4 mg/dL (0.2-1); BLOOD UREA NITROGEN 17.8 mg/dL (7-18); CALCIUM 9.1 mg/dL (8.5-10.1); CREATININE 1.1 mg/dL (0.55-1.3); PHOSPHOROUS 3.3 mg/dL (2.5-4.9); POTASSIUM 3.7 mmol/L (3.5-5.1); TOT PROT 7.4 g/dl (6.4-8.2)
--- NOTE | 2019-08-11 05:41 | PDOC ---
Attending Attestation - Resident Resident Name: Katherine Romano - ED Attending Attestation I have performed the following: I have examined & evaluated the patient, The case was reviewed & discussed with the resident, I agree w/resident's findings & plan - HPI HPI: 08/11/19 05:34 Pt comes with SOB - Physicial Exam PE: 08/11/19 05:34 Agree with resident exam - Medical Decision Making 08/11/19 05:34 Pt desaturates from 94% AT REST TO 87% WHEN SHE AMBULATES. SHE HAS A HX OF COPD , however she uses no home O2. Pt has no other complaints. SHe has a hx of anemia that was established last month, and she has pitting edema of her legs, but no crackles in her lungs. However CXR pending 08/11/19 05:42 CXR shows CHF; fluffy/patchy effusion. 08/11/19 06:52 Pt treated with lasix 08/11/19 20:11 Pt will be readmited to the hospital.
[2019-08-11] MEDS ORDERED: FUROSEMIDE 40 MG/4 ML INJECTABLE VIAL IVPUSH ONE (05:42)
--- NOTE | 2019-08-11 05:53 | HP ---
Admitting History and Physical - Admission Chief Complaint: Worsening Shortness of breath x1 day History of Present Illness: Pt is a 68 yo F with PMHx asthma/ COPD, HFpEF, HTN, HLD, CVA, dementia brought in by daughter for SOB. Pt reports worsening SOB not relieved with her inhaler, worse with exertion, reports orthopnea and PND, b/l leg swelling. Pt reports eating a low salt diet, and does not remember her weight change since discharge on 08/08 when she was treated for COPD exacerbation. At last discharge, pt was noted not to have qualified for oxygen because pre and post test showed sats of 92, however in the EDtoday she was noted to have desaturated to about 86% on exertion requiring supplemental oxygen. No fevers, no cough, no increase in sputum production. Pt was discharged on 40mg PO of lasix and said she has been compliant with her medications. Pt denies chest pain, abdominal pain, or dysuria. 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: CVA, Dementia Cardiovascular: Yes: CHF (Diastolic dysfunction), HTN, Hyperlipdemia Pulmonary: Yes: Asthma, COPD Gastrointestinal: Yes: Diverticulitis - Past Surgical History Past Surgical History: Yes: Hysterectomy - Smoking History Smoking history: Former smoker Have you smoked in the past 12 months: No Aproximately how many cigarettes per day: 10 If you are a former smoker, when did you quit?: 2018 - Alcohol/Substance Use Hx Alcohol Use: No History of Substance Use: reports: None - Social History Usual Living Arrangement: Yes: With Child Home Medications - Allergies Allergies/Adverse Reactions: Allergies Allergy/AdvReac Type Severity Reaction Status Date / Time No Known Drug Allergies Allergy Verified 08/11/19 02:24 Shellfish Allergy Uncoded 08/11/19 02:24 - Home Medications Home Medications: Ambulatory Orders Allopurinol [Zyloprim -] 100 mg PO DAILY 09/10/18 Donepezil HCl 10 mg PO HS 09/10/18 Calcium Carbonate [Calcium] 600 mg PO DAILY 07/17/19 Ergocalciferol (Vitamin D2) [Vitamin D2] 25 mcg PO DAILY 07/17/19 Ferrous Sulfate 325 mg PO BID #60 tablet 07/25/19 Carvedilol 25 mg PO BID 08/08/19 Fluticasone Propion/Salmeterol [Fluticasone-Salmeterol 500-50] 1 each IH BID 03/21 Furosemide 40 mg PO DAILY 08/08/19 Nifedipine [Nifedipine ER] 90 mg PO DAILY 08/08/19 Albuterol 0.083% Nebulizer Malorie [Ventolin 0.083% Nebulizer Soln -] 1 neb NEB Q4H PRN 08/09/19 Aspirin [ASA -] 81 mg PO DAILY tab.chew 08/09/19 Review of Systems - Review of Systems Constitutional: denies: Chills, Fever, Loss of Appetite Eyes: reports: No Symptoms HENT: reports: No Symptoms Neck: reports: No Symptoms Cardiovascular: reports: Edema, Shortness of Breath Respiratory: reports: SOB on Exertion, Wheezing. denies: Cough Gastrointestinal: denies: Abdominal Pain Genitourinary: denies: Burning Physical Examination Vital Signs: Vital Signs Temperature 97.9 F 08/11/19 02:19 Pulse Rate 95 H 08/11/19 02:19 Respiratory Rate 20 08/11/19 02:19 Blood Pressure 175/73 H 08/11/19 02:19 O2 Sat by Pulse Oximetry (%) 97 08/11/19 02:19 Constitutional: Yes: Calm, Obese Eyes: Yes: EOM Intact HENT: Yes: Atraumatic Neck: Yes: Supple, Other (JVD) Cardiovascular: Yes: Regular Rate and Rhythm, S1, S2 Respiratory: Yes: On Nasal O2, Rales. No: Wheezes Gastrointestinal: Yes: Abdomen, Obese Edema: Yes Edema: LLE: 2+ (up to mid drake b/l), RLE: 2+ (up to mid drake b/l) Peripheral Pulses WNL: Yes Neurological: Yes: Alert, Oriented, Cran Nerves II-XII Intact. No: Facial Droop ...Motor Strength: WNL Labs: CBC, BMP 08/11/19 03:00 08/11/19 03:00 Imaging - Results Chest X-ray: Image Reviewed Assessment/Plan Ambulatory Orders Allopurinol [Zyloprim -] 100 mg PO DAILY 09/10/18 Donepezil HCl 10 mg PO HS 09/10/18 Calcium Carbonate [Calcium] 600 mg PO DAILY 07/17/19 Ergocalciferol (Vitamin D2) [Vitamin D2] 25 mcg PO DAILY 07/17/19 Ferrous Sulfate 325 mg PO BID #60 tablet 07/25/19 Carvedilol 25 mg PO BID 08/08/19 Fluticasone Propion/Salmeterol [Fluticasone-Salmeterol 500-50] 1 each IH BID 03/21 Furosemide 40 mg PO DAILY 08/08/19 Nifedipine [Nifedipine ER] 90 mg PO DAILY 08/08/19 Albuterol 0.083% Nebulizer Malorie [Ventolin 0.083% Nebulizer Soln -] 1 neb NEB Q4H PRN 08/09/19 Aspirin [ASA -] 81 mg PO DAILY tab.chew 08/09/19 Current Medications Albuterol/Ipratropium (Duoneb -) 2 amp NEB RQID PRN PRN Reason: ASTHMA Last Admin: 08/11/19 03:37 Dose: 2 amp Albuterol/Ipratropium (Duoneb -) 1 amp NEB Q6H PRN PRN Reason: SHORTNESS OF BREATH Furosemide (Lasix Injection -) 40 mg IVPUSH BID@0600,1400 [facility] Heparin Sodium (Porcine) (Heparin -) 5,000 unit SQ TID [facility] Assessment/Plan: Pt is a 68 yo F with PMHx asthma/ COPD, HFpEF, HTN, HLD, CVA, dementia brought in by daughter for SOB. Pt reports worsening SOB not relieved with her inhaler, worse with exertion, reports orthopnea and PND, b/l leg swelling. Acute CHF exacerbation Hx of HFpEF Congestive changes on CXR iv Lasix 40mg stat, 40mg bid strict ins and outs salt restriction Daily weights tele Acute hypoxic respiratory failure likely secondary to combined hfpef and Acute COPD exacerbation Hx of asthma/ COPD Cont duonebs received solumed 125mg in Ed Will hold parenteral steroids at this time vbg shows no CO2 retention abg- to document O2 sats, may benefit from home O2 HTN, HLD, CVA, dementia Cont home meds Hep subq Salt restriction No standing fluids Visit type - Emergency Visit Emergency Visit: Yes ED Registration Date: 08/11/19 Care time: The patient presented to the Emergency Department on the above date and was hospitalized for further evaluation of their emergent condition. - New Patient This patient is new to me today: Yes Date on this admission: 08/11/19 - Critical Care Critical Care patient: No ATTENDING PHYSICIAN STATEMENT I saw and evaluated the patient. I reviewed the resident's note and discussed the case with the resident. I agree with the resident's findings and plan as documented. SUBJECTIVE: OBJECTIVE: ASSESSMENT AND PLAN:
--- NOTE | 2019-08-11 05:53 | PN ---
Teaching Attending Note Name of Resident: Sheree Nobles ATTENDING PHYSICIAN STATEMENT I saw and evaluated the patient. I reviewed the resident's note and discussed the case with the resident. I agree with the resident's findings and plan as documented. SUBJECTIVE: 68 yo w/ obesity asthma/COPD, chf, HTN, HLD, CVA, dementia presenting from home complaining of SOB and "chest tightness" just admitted on 08/08 for chest pain ACS rule out and discharged on 08/09. Patient was evaluated for home oxygen and it was deemed that it was not necessary. Cardiology evaluated patient on last admission. As per daughter patient's lower extremities have swollen since her discharge. Patient is more comfortable in sitting position than laying flat and her exercise tolerance has worsened. Complains of dry cough but not much sputum production. OBJECTIVE: Last Vital SignsDVT prophylaxis with heparin subcu Temp Pulse Resp BP Pulse Ox 97.9 F 95 H 20 175/73 H 97 08/11/19 02:19 08/11/19 02:19 08/11/19 02:19 08/11/19 02:19 08/11/19 02:19 GENERAL: Well developed, well nourished. Awake and alert. No acute distress.Speaks in full sentences HEENT: Normocephalic, atraumatic. PERRLA, EOMI. No conjunctival pallor. Sclera are non- icteric. Moist mucous membranes. Oropharynx is clear. NECK: Supple. Full ROM. Bilateral JVD appreciated Carotid pulses 2+ and symmetric, without bruits. No thyromegaly. No lymphadenopathy. CARDIOVASCULAR: Regular rate and rhythm. No murmurs, rubs, or gallops. Distal pulses are 2+ and symmetric. PULMONARY: Bibasilar crackles appreciated, Bilateral air entry ABDOMINAL: Soft. Non-tender. Non-distended. No rebound or guarding. No organomegaly. Normoactive bowel sounds. MUSCULOSKELETAL Normal range of motion at all joints. No bony deformities or tenderness. No CVA tenderness. EXTREMITIES: 2+ pitting edema up to her knees bilaterally SKIN: Warm and dry. Normal capillary refill. No rashes. No jaundice. PSYCHIATRIC: Cooperative. Good eye contact. Appropriate mood and affect. Abnormal Lab Results 08/11/19 08/11/19 08/11/19 03:00 03:00 03:00 RBC 3.39 L Hgb 8.3 L Hct 26.3 L MCV 77.6 L MCH 24.5 L MCHC 31.6 L RDW 20.0 H POC VBG pO2 VBG O2 Sat (Mu) VBG Base Excess Anion Gap 4 L ALT 11 L B-Natriuretic Peptide 2440.8 H Albumin 3.0 L 08/11/19 03:00 RBC Hgb Hct MCV MCH MCHC RDW POC VBG pO2 < 49 H VBG O2 Sat (Mu) 68.4 L VBG Base Excess 2.2 H Anion Gap ALT B-Natriuretic Peptide Albumin EKG appreciated Chest x-ray positive for bilateral pulmonary edema And congested pulmonary vasculature ASSESSMENT AND PLAN: 68-year-old woman with acute CHF exacerbation, reported hypoxic respiratory failure in the emergency room setting in high 80s on room air. Do not suspect reactive airway disease at this time as there is no wheezing or coarse breath sounds. Should be considered to reevaluate for home oxygen. Admit to telemetry Trend troponins Echo IV furosemide 40 mg twice daily Continue beta-jimbo Unclear why patient is not on MARY inhibitor Strict I's and O's Daily weights Cardiology evaluation Salt restriction Free water restriction Supplemental oxygen via nasal cannula Would obtain ABG on room air for reevaluation form home oxygen #Chronic anemia DVT prophylaxis heparin subcu
[2019-08-11] MEDS ORDERED: FUROSEMIDE 40 MG/4 ML INJECTABLE VIAL ONE (06:05)
[2019-08-11] MEDS ORDERED: HEPARIN NA (PORCINE) 5,000 UNITS/ML 1ML VIAL ONE (06:05)
[2019-08-11] MEDS: HEPARIN NA (PORCINE) 5,000 UNITS/ML 1ML VIAL SQ SCH ×3 (06:17→21:40)
[2019-08-11 07:07] LABS: ARTERIAL BLD GAS O2 SATURATION 90.8 % (95-98); ARTERIAL BLOOD GAS BASE EXCESS 1.4 meq/l (-2-2); ARTERIAL BLOOD GAS PCO2 38.1 mmHg (35-45); ARTERIAL BLOOD GAS PO2 62.6 mmHg (80-100); ARTERIAL BLOOD GAS pH 7.44 (7.35-7.45)
[2019-08-11 07:12] LABS: ALLENS TEST POSITIVE
--- NOTE | 2019-08-11 08:38 | CON.CARD ---
Consult Consult Specialty:: Cardiology for dr. Staples - History of Present Illness History of Present Illness: Pt is a 68 yo F with PMHx asthma/ COPD, HFpEF, HTN, HLD, CVA, dementia brought in by daughter for SOB. Pt reports worsening SOB not relieved with her inhaler, worse with exertion, reports orthopnea and PND, b/l leg swelling. Pt reports eating a low salt diet, and does not remember her weight change since discharge on 08/08 when she was treated for COPD exacerbation. At last discharge, pt was noted not to have qualified for oxygen because pre and post test showed sats of 92, however in the EDtoday she was noted to have desaturated to about 86% on exertion requiring supplemental oxygen. No fevers, no cough, no increase in sputum production. Pt was discharged on 40mg PO of lasix and said she has been compliant with her medications. Pt denies chest pain, abdominal pain, or dysuria. Recent stress test 07/09- Normal EF, normal stress EKG Pt initially presented with tachycardia up to 104, but improved to 95 with BP- 175/73 H/H- 8.3/26.3 (about her baseline), BUN/Cr-17.8/1.1 BNP-2440.8 CXR- Congestive features VBG-7.4/44.8/<49 EKG-vent rate 80, Normal axis, nl interval, possible LAE, possible LBBB QTC-495 PMH 68 year old female with underlying history of COPD/bronchial asthma, acute on chronic diastolic heart failure (HFpEF), HTN, hypercholesterolemia, CAD h/o [place], RCA [employer]OR [employer]ING 2012 cath and underlying organic brain/dementia - History Source History Provided By: Patient, Medical Record - Past Medical History 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: CVA, 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 Cardio/Vascular: Yes: CHF (Diastolic dysfunction), HTN, Hyperlipdemia Pulmonary: Yes: Asthma, COPD Gastrointestinal: Yes: Diverticulitis - Past Surgical History Past Surgical History: Yes: Hysterectomy - Alcohol/Substance Use Hx Alcohol Use: No History of Substance Use: reports: None - Smoking History Smoking history: Former smoker Have you smoked in the past 12 months: No Aproximately how many cigarettes per day: 10 If you are a former smoker, when did you quit?: 2018 Home Medications - Allergies Allergies/Adverse Reactions: Allergies Allergy/AdvReac Type Severity Reaction Status Date / Time No Known Drug Allergies Allergy Verified 08/11/19 02:24 Shellfish Allergy Uncoded 08/11/19 02:24 - Home Medications Home Medications: Ambulatory Orders Allopurinol [Zyloprim -] 100 mg PO DAILY 09/10/18 Donepezil HCl 10 mg PO HS 09/10/18 Calcium Carbonate [Calcium] 600 mg PO DAILY 07/17/19 Ergocalciferol (Vitamin D2) [Vitamin D2] 25 mcg PO DAILY 07/17/19 Ferrous Sulfate 325 mg PO BID #60 tablet 07/25/19 Carvedilol 25 mg PO BID 08/08/19 Fluticasone Propion/Salmeterol [Fluticasone-Salmeterol 500-50] 1 each IH BID 03/21 Furosemide 40 mg PO DAILY 08/08/19 Nifedipine [Nifedipine ER] 90 mg PO DAILY 08/08/19 Albuterol 0.083% Nebulizer Malorie [Ventolin 0.083% Nebulizer Soln -] 1 neb NEB Q4H PRN 08/09/19 Aspirin [ASA -] 81 mg PO DAILY tab.chew 08/09/19 Review of Systems - Review of Systems Constitutional: reports: No Symptoms Eyes: reports: No Symptoms HENT: reports: No Symptoms Neck: reports: No Symptoms Cardiovascular: reports: Edema, Shortness of Breath Respiratory: reports: SOB Gastrointestinal: reports: No Symptoms Genitourinary: reports: No Symptoms Breasts: reports: No Symptoms Reported Musculoskeletal: reports: No Symptoms Integumentary: reports: No Symptoms Neurological: reports: No Symptoms Endocrine: reports: No Symptoms Hematology/Lymphatic: reports: No Symptoms Psychiatric: reports: No Symptoms Vital Signs: Vital Signs Temperature 98 F 08/11/19 08:09 Pulse Rate 90 08/11/19 08:09 Respiratory Rate 18 08/11/19 08:09 Blood Pressure 169/73 08/11/19 08:09 O2 Sat by Pulse Oximetry (%) 99 08/11/19 08:09 Constitutional: Yes: Well Nourished, No Distress, Calm Eyes: Yes: WNL, Conjunctiva Clear, EOM Intact HENT: Yes: WNL, Atraumatic, Normocephalic Neck: Yes: WNL, Supple, Trachea Midline Respiratory: Yes: WNL, Regular, CTA Bilaterally Gastrointestinal: Yes: WNL, Normal Bowel Sounds Renal/: Yes: WNL Cardiovascular: Yes: WNL, Regular Rate and Rhythm Musculoskeletal: Yes: WNL Extremities: Yes: WNL Edema: Yes Edema: LLE: 1+, RLE: 1+ Integumentary: Yes: WNL Neurological: Yes: WNL, Alert, Oriented ...Motor Strength: WNL Psychiatric: Yes: WNL, Alert, Oriented - Other Data Labs, Other Data: CBC, BMP 08/11/19 03:00 08/11/19 03:00 Troponin, BNP 08/11/19 03:00 Troponin I 0.04 B-Natriuretic Peptide 2440.8 H Troponin, BNP 08/11/19 03:00 Troponin I 0.04 B-Natriuretic Peptide 2440.8 H Imaging - Results Chest X-ray: Image Reviewed (jerry chf) EKG: Image Reviewed ( IVCD) Problem List - Problems (1) Acute on chronic diastolic heart failure Code(s): I50.33 - ACUTE ON CHRONIC DIASTOLIC (CONGESTIVE) HEART FAILURE (2) Altered mental state Code(s): R41.82 - ALTERED MENTAL STATUS, UNSPECIFIED (3) Anemia Code(s): D64.9 - ANEMIA, UNSPECIFIED Qualifiers: Anemia type: iron deficiency (4) CKD (chronic kidney disease) Code(s): N18.9 - CHRONIC KIDNEY DISEASE, UNSPECIFIED Qualifiers: Chronic kidney disease stage: stage 2 (mild) Qualified Code(s): N18.2 - Chronic kidney disease, stage 2 (mild) (5) COPD with exacerbation Code(s): J44.1 - CHRONIC OBSTRUCTIVE PULMONARY DISEASE W (ACUTE) EXACERBATION (6) Cerebrovascular disease Code(s): I67.9 - CEREBROVASCULAR DISEASE, UNSPECIFIED (7) Coronary artery disease Code(s): I25.10 - ATHSCL HEART DISEASE OF [place] CORONARY ARTERY W/O ANG PCTRS (8) Decompensated heart failure Code(s): I50.9 - HEART FAILURE, UNSPECIFIED (9) Dementia Code(s): F03.90 - UNSPECIFIED DEMENTIA WITHOUT BEHAVIORAL DISTURBANCE (10) Dyspnea Code(s): R06.00 - DYSPNEA, UNSPECIFIED Qualifiers: Dyspnea type: orthopnea Qualified Code(s): R06.01 - Orthopnea (11) HTN (hypertension) Code(s): I10 - ESSENTIAL (PRIMARY) HYPERTENSION (12) Hypercholesteremia Code(s): E78.00 - PURE HYPERCHOLESTEROLEMIA, UNSPECIFIED (13) Morbid obesity Code(s): E66.01 - MORBID (SEVERE) OBESITY DUE TO EXCESS CALORIES (14) Old inferolateral myocardial infarction Code(s): I25.2 - OLD MYOCARDIAL INFARCTION (15) Respiratory failure with hypoxia Code(s): J96.91 - RESPIRATORY FAILURE, UNSPECIFIED WITH HYPOXIA Qualifiers: Chronicity: acute on chronic Qualified Code(s): J96.21 - Acute and chronic respiratory failure with hypoxia (16) Shortness of breath Code(s): R06.02 - SHORTNESS OF BREATH (17) TIA (transient ischemic attack) Code(s): G45.9 - TRANSIENT CEREBRAL ISCHEMIC ATTACK, UNSPECIFIED Assessment/Plan 68 year old female with underlying history of COPD/bronchial asthma, acute on chronic diastolic heart failure (HFpEF), HTN, hypercholesterolemia, CAD h/o [place], RCA [employer]ING 2013 cath and underlying organic brain/dementia who presents to ED with shortness of breath PLan IV lasix pulmonary treatment cont coreg and asa bp control dvyt plx cc time spent [address] Staples
--- NOTE | 2019-08-11 09:10 | PN ---
Teaching Attending Note Name of Resident: Matt Hall ATTENDING PHYSICIAN STATEMENT I saw and evaluated the patient. I reviewed the resident's note and discussed the case with the resident. I agree with the resident's findings and plan as documented with exceptions below. SUBJECTIVE: Patient seen and examined. Denies any dyspnea currently, reports feeling short of breath prompting her to come to ED. No fevers. Chills. Also c/o leg swelling. OBJECTIVE: Vital Signs Period Temp Pulse Resp BP Sys/Christensen Pulse Ox Last 24 Hr 97.9 F-98 F 81-95 15-20 163-175/73-75 97-99 Intake & Output 08/08/19 08/09/19 08/10/19 08/11/19 23:59 23:59 23:59 23:59 Weight 270 lb General: sitting in bed in no acute distress, morbidly obese (BMI 42.3) neck: soft, supple Chest: good air entry bilaterally, occasional fine basilar rales, no wheezing Abdomen:Soft, obese, NT Extremities1-2+ pedal pitting edema Home Medications Medication Instructions Recorded Allopurinol [Zyloprim -] 100 mg PO DAILY 09/10/18 Donepezil HCl 10 mg PO HS 09/10/18 Calcium Carbonate [Calcium] 600 mg PO DAILY 07/17/19 Ergocalciferol (Vitamin D2) 25 mcg PO DAILY 07/17/19 [Vitamin D2] Ferrous Sulfate 325 mg PO BID #60 tablet 07/25/19 Carvedilol 25 mg PO BID 08/08/19 Fluticasone Propion/Salmeterol 1 each IH BID 08/08/19 [Fluticasone-Salmeterol 500-50] Furosemide 40 mg PO DAILY 08/08/19 Nifedipine [Nifedipine ER] 90 mg PO DAILY 08/08/19 Albuterol 0.083% Nebulizer Malorie 1 neb NEB Q4H PRN 08/09/19 [Ventolin 0.083% Nebulizer Soln -] Aspirin [ASA -] 81 mg PO DAILY tab.chew 08/09/19 Active Medications Albuterol/Ipratropium (Duoneb -) 1 amp NEB RQID PRN PRN Reason: SHORTNESS OF BREATH Allopurinol (Zyloprim -) 100 mg PO DAILY [facility] Aspirin (Asa -) 81 mg PO DAILY [facility] Budesonide/Formoterol Fumarate (Symbicort 80/4.5mcg -) 2 puff IH BID [facility] Calcium Carbonate (Calcium Carbonate -) 650 mg PO DAILY [facility] Carvedilol (Coreg -) 25 mg PO BID [facility] Cholecalciferol (Vitamin D3 -) 1,000 unit PO DAILY [facility] Donepezil HCl (Aricept -) 10 mg PO HS [facility] Ferrous Sulfate (Feosol -) 325 mg PO BID [facility] Furosemide (Lasix Injection -) 40 mg IVPUSH BID@0600,1400 [facility] Heparin Sodium (Porcine) (Heparin -) 5,000 unit SQ TID [facility] Last Admin: 08/11/19 06:17 Dose: 5,000 unit Nifedipine (Procardia Xl -) 90 mg PO DAILY [facility] Laboratory Results - last 24 hr 08/11/19 08/11/19 08/11/19 03:00 03:00 03:00 WBC 8.0 RBC 3.39 L Hgb 8.3 L Hct 26.3 L MCV 77.6 L MCH 24.5 L MCHC 31.6 L RDW 20.0 H Plt Count 323 MPV 9.0 Absolute Neuts (auto) 5.3 Neutrophils % 65.9 Lymphocytes % 20.7 Monocytes % 7.8 Eosinophils % 4.0 Basophils % 1.6 Nucleated RBC % 0 Anticoagulation Therapy Puncture Site ABG pH ABG pCO2 at Pt Temp ABG pO2 at Pt Temp ABG HCO3 ABG O2 Sat (Measured) ABG O2 Content ABG Base Excess Musa Test VBG pH POC VBG pCO2 POC VBG pO2 VBG HCO3 VBG O2 Sat (Mu) VBG Base Excess O2 Delivery Device Oxygen Flow Rate Vent Mode Vent Rate Mechanical Rate Pressure Support Vent Sodium 139 Potassium 3.7 Chloride 107 Carbon Dioxide 28 Anion Gap 4 L BUN 17.8 Creatinine 1.1 Est GFR (CKD-EPI)AfAm 58.91 Est GFR (CKD-EPI)NonAf 50.83 Random Glucose 105 Calcium 9.1 Phosphorus 3.3 Magnesium 2.0 Total Bilirubin 0.4 AST 16 ALT 11 L Alkaline Phosphatase 112 Troponin I 0.04 B-Natriuretic Peptide 2440.8 H Total Protein 7.4 Albumin 3.0 L TSH 1.68 08/11/19 08/11/19 03:00 06:45 WBC RBC Hgb Hct MCV MCH MCHC RDW Plt Count MPV Absolute Neuts (auto) Neutrophils % Lymphocytes % Monocytes % Eosinophils % Basophils % Nucleated RBC % Anticoagulation Therapy No Result Required. Puncture Site Right brachial ABG pH 7.44 ABG pCO2 at Pt Temp 38.1 ABG pO2 at Pt Temp 62.6 L ABG HCO3 25.1 ABG O2 Sat (Measured) 90.8 L ABG O2 Content 10.3 ABG Base Excess 1.4 Musa Test Positive VBG pH 7.40 POC VBG pCO2 44.8 POC VBG pO2 < 49 H VBG HCO3 26.8 VBG O2 Sat (Mu) 68.4 L VBG Base Excess 2.2 H O2 Delivery Device Room temperature Oxygen Flow Rate No Vent Mode No Result Required. Vent Rate No Result Required. Mechanical Rate No Result Required. Pressure Support Vent No Result Required. 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 Titrate based on BP readings Cardiology input. Outpatient sleep study/Pulmonary follow up. Home oxygen needs assessment prior to dc. DVTPPX heparin Dispo when volume status improved in 2-3 days. Plan discussed with patient and nursing, all questions answered.
[2019-08-11] MEDS ORDERED: PT OWN MED DRAWER 7, Y5N ONE (09:26)
[2019-08-11 09:31] LABS: BASO % 0.4 % (0-2.0); HEMATOCRIT 27.8 % (32.4-45.2); HEMOGLOBIN 8.7 GM/dL (10.7-15.3); LYMPH % 7.4 % (8-40); MCH 24.2 pg (25.7-33.7); MCHC 31.2 g/dl (32.0-36.0); MEAN CELL VOLUME 77.7 fl (80-96); MEAN PLT VOLUME 9.1 fl (7.5-11.1); MONO % 1.9 % (3.8-10.2); NEUT % 90.3 % (42.8-82.8); PLATELET COUNT 332 K/MM3 (134-434); RBC 3.58 M/mm3 (3.60-5.2); RDW 19.7 % (11.6-15.6); WHITE BLOOD COUNT 8.3 K/mm3 (4.0-10.0)
[2019-08-11] MEDS: CARVEDILOL 25 MG TABLET (FP) PO SCH ×2 (09:33→21:40)
[2019-08-11] MEDS: FERROUS SO4 325 MG TABLET (FP) PO SCH ×2 (09:33→21:40)
[2019-08-11] MEDS: ALLOPURINOL 100 MG TABLET (FP) PO SCH (09:33)
[2019-08-11] MEDS: ASPIRIN 81 MG CHEWABLE TABLETS PO SCH (09:33)
[2019-08-11] MEDS: CHOLECALCIFEROL (VIT D3) 1,000 UNIT (25 MCG) TABLET PO SCH (09:33)
[2019-08-11] MEDS: NIFEdipine E.R. 90 MG TABLET (FP) PO SCH (09:34)
[2019-08-11] MEDS ORDERED: PATIENT'S OWN MEDICATION (NON-FORMULARY) (Ferrous Sulfate [Ferrous Sulfate] 325 MG) PO SCH (10:00)
[2019-08-11] MEDS ORDERED: PATIENT'S OWN MEDICATION (NON-FORMULARY) (Calcium Carbonate [Calcium] 600 MG) PO SCH (10:00)
[2019-08-11] MEDS ORDERED: PATIENT'S OWN MEDICATION (NON-FORMULARY) (Fluticasone Propion/Salmeterol [Fluticasone-Salm IH SCH (10:00)
[2019-08-11] MEDS ORDERED: NIFEdipine E.R. 30 MG TABLET (FP) PO SCH (10:00)
[2019-08-11 10:04] LABS: ALBUMIN 3.2 g/dl (3.4-5.0); BLOOD UREA NITROGEN 16.3 mg/dL (7-18); CALCIUM 9.1 mg/dL (8.5-10.1); CREATININE 1.2 mg/dL (0.55-1.3); MAGNESIUM 2.2 mg/dL (1.8-2.4); PHOSPHOROUS 3.6 mg/dL (2.5-4.9); POTASSIUM 3.5 mmol/L (3.5-5.1); TOT PROT 7.8 g/dl (6.4-8.2)
[2019-08-11] MEDS ORDERED: POTASSIUM CHLORIDE TABS 20 MEQ TABLET.ER (FP) PO ONE (10:33)
--- NOTE | 2019-08-11 10:36 | PN ---
Physical Exam: SUBJECTIVE: Patient seen and examined Endorses improvement in chest tightness. Hungry. States that she has been compliant with salt restricted diet, eating toast in the AM and salad for lunches. Complains of nonpitting edema of the feet. OBJECTIVE: Vital Signs Period Temp Pulse Resp BP Sys/Christensen Pulse Ox Last 24 Hr 97.9 F-98 F 81-95 15-20 163-175/71-75 97-99 GENERAL: The patient is awake, alert. NAD HEAD: NC/AT. EYES: sclera anicteric, mild conjunctival pallor. ENT: Ears normal, nares patent, moist mucous membranes. Poor dentition NECK: Trachea midline, full range of motion, supple. LUNGS: mild b/l expiratory wheezes, mild b/l fine crackles at lung bases, no accessory muscle use. Breathing comfortably on RA. Speaking in full sentences HEART: Regular rate and rhythm, S1, S2 without murmur, rub or gallop. ABDOMEN: Soft, nontender, nondistended, no guarding, no rebound. EXTREMITIES: 2+ pulses, warm, well-perfused, nonpitting edema to BLE NEUROLOGICAL: Normal speech PSYCH: Normal mood, normal affect. SKIN: Warm, dry, normal turgor, no rashes or lesions noted Laboratory Results - last 24 hr 08/11/19 08/11/19 08/11/19 03:00 03:00 03:00 WBC 8.0 RBC 3.39 L Hgb 8.3 L Hct 26.3 L MCV 77.6 L MCH 24.5 L MCHC 31.6 L RDW 20.0 H Plt Count 323 MPV 9.0 Absolute Neuts (auto) 5.3 Neutrophils % 65.9 Lymphocytes % 20.7 Monocytes % 7.8 Eosinophils % 4.0 Basophils % 1.6 Nucleated RBC % 0 Anticoagulation Therapy Puncture Site ABG pH ABG pCO2 at Pt Temp ABG pO2 at Pt Temp ABG HCO3 ABG O2 Sat (Measured) ABG O2 Content ABG Base Excess Musa Test VBG pH POC VBG pCO2 POC VBG pO2 VBG HCO3 VBG O2 Sat (Mu) VBG Base Excess O2 Delivery Device Oxygen Flow Rate Vent Mode Vent Rate Mechanical Rate Pressure Support Vent Sodium 139 Potassium 3.7 Chloride 107 Carbon Dioxide 28 Anion Gap 4 L BUN 17.8 Creatinine 1.1 Est GFR (CKD-EPI)AfAm 58.91 Est GFR (CKD-EPI)NonAf 50.83 Random Glucose 105 Calcium 9.1 Phosphorus 3.3 Magnesium 2.0 Total Bilirubin 0.4 AST 16 ALT 11 L Alkaline Phosphatase 112 Troponin I 0.04 B-Natriuretic Peptide 2440.8 H Total Protein 7.4 Albumin 3.0 L TSH 1.68 08/11/19 08/11/19 08/11/19 03:00 06:45 09:04 WBC 8.3 RBC 3.58 L Hgb 8.7 L Hct 27.8 L MCV 77.7 L MCH 24.2 L MCHC 31.2 L RDW 19.7 H Plt Count 332 MPV 9.1 Absolute Neuts (auto) 7.5 Neutrophils % 90.3 H Lymphocytes % 7.4 L D Monocytes % 1.9 L Eosinophils % 0.0 D Basophils % 0.4 Nucleated RBC % 0 Anticoagulation Therapy No Result Required. Puncture Site Right brachial ABG pH 7.44 ABG pCO2 at Pt Temp 38.1 ABG pO2 at Pt Temp 62.6 L ABG HCO3 25.1 ABG O2 Sat (Measured) 90.8 L ABG O2 Content 10.3 ABG Base Excess 1.4 Musa Test Positive VBG pH 7.40 POC VBG pCO2 44.8 POC VBG pO2 < 49 H VBG HCO3 26.8 VBG O2 Sat (Mu) 68.4 L VBG Base Excess 2.2 H O2 Delivery Device Room temperature Oxygen Flow Rate No Vent Mode No Result Required. Vent Rate No Result Required. Mechanical Rate No Result Required. Pressure Support Vent No Result Required. Sodium Potassium Chloride Carbon Dioxide Anion Gap BUN Creatinine Est GFR (CKD-EPI)AfAm Est GFR (CKD-EPI)NonAf Random Glucose Calcium Phosphorus Magnesium Total Bilirubin AST ALT Alkaline Phosphatase Troponin I B-Natriuretic Peptide Total Protein Albumin TSH 08/11/19 09:04 WBC RBC Hgb Hct MCV MCH MCHC RDW Plt Count MPV Absolute Neuts (auto) Neutrophils % Lymphocytes % Monocytes % Eosinophils % Basophils % Nucleated RBC % Anticoagulation Therapy Puncture Site ABG pH ABG pCO2 at Pt Temp ABG pO2 at Pt Temp ABG HCO3 ABG O2 Sat (Measured) ABG O2 Content ABG Base Excess Musa Test VBG pH POC VBG pCO2 POC VBG pO2 VBG HCO3 VBG O2 Sat (Mu) VBG Base Excess O2 Delivery Device Oxygen Flow Rate Vent Mode Vent Rate Mechanical Rate Pressure Support Vent Sodium 138 Potassium 3.5 Chloride 105 Carbon Dioxide 27 Anion Gap 6 L BUN 16.3 Creatinine 1.2 Est GFR (CKD-EPI)AfAm 53.03 Est GFR (CKD-EPI)NonAf 45.75 Random Glucose 133 H Calcium 9.1 Phosphorus 3.6 Magnesium 2.2 Total Bilirubin 1.0 AST 13 L ALT 13 Alkaline Phosphatase 125 H Troponin I B-Natriuretic Peptide Total Protein 7.8 Albumin 3.2 L TSH Active Medications Generic Name Dose Route Start Last Admin Trade Name Freq PRN Reason Stop Dose Admin Albuterol/Ipratropium 1 amp 08/11/19 05:51 Duoneb - NEB RQID PRN SHORTNESS OF BREATH Allopurinol 100 mg 08/11/19 10:00 08/11/19 09:33 Zyloprim - PO 100 mg DAILY ARA Administration Aspirin 81 mg 08/11/19 10:00 08/11/19 09:33 Asa - PO 81 mg DAILY ARA Administration Budesonide/Formoterol Fumarate 2 puff 08/11/19 10:00 Symbicort 80/4.5mcg - IH BID [facility] Calcium Carbonate 650 mg 08/11/19 10:00 Calcium Carbonate - PO DAILY ARA Carvedilol 25 mg 08/11/19 10:00 08/11/19 09:33 Coreg - PO 25 mg BID ARA Administration Cholecalciferol 1,000 unit 08/11/19 10:00 08/11/19 09:33 Vitamin D3 - PO 1,000 unit DAILY ARA Administration Donepezil HCl 10 mg 08/11/19 22:00 Aricept - PO HS ARA Ferrous Sulfate 325 mg 08/11/19 10:00 08/11/19 09:33 Feosol - PO 325 mg BID ARA Administration Furosemide 40 mg 08/11/19 14:00 Lasix Injection - IVPUSH BID@0600,1400 [facility] Heparin Sodium (Porcine) 5,000 unit 08/11/19 06:00 08/11/19 06:17 Heparin - SQ 5,000 unit TID ARA Administration Nifedipine 90 mg 08/11/19 10:00 08/11/19 09:34 Procardia Xl - PO 90 mg DAILY ARA Administration ASSESSMENT/PLAN: 68 y.o. 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 Admitted for CHFe. At [facility] , pt found to be hypoxic w/ ABG showing pO2 62.6, saturating to a reported 86% w / ambulation. BNP ~2440. CXR showing pulmonary congestion. Given albuterol, lasix, solumedrol. Symptomatically improved #Acute HFpEF exacerbation >BNP(08/11/19) ~2440.8 >troponin 0.04 >Echo(07/17/19): LVEF 55%, mild LVH, LA dilation >Stress Test(08/09/19): normal -Lasix 40mg IVP x1 --> Lasix 40mg IVP BID -Solumedrol IV 125mg x1 -- dc'd -Is & Os -Daily weights: 122.4kg at admission -Cardio consulted (Dr. Rosado, Dr Christiansen) --cw IV lasix, pulm tx, carvedilol + ASA, BP control #SOB 2/2 to HFrEF >CXR(08/11/19): pulmon congestion, fu final read >ABG(07/17/19): 7.44/38.1/62.6/25.1/90.8/1.4 on RA - supplemental O2 PRN if O2 <92% #chronic microcytic anemia > Hgb(baseline ~8-9): 8.3 > colonoscopy(07/23/19): rectosigmoid polyps, sigmoid diverticulosis, mid diverticulosis throughout rest of colon #CPOD -duonebs PRN -cw home budesonide/Formeterol -supplemental O2 PRN -will assess Pre and Post O2 prior to discharge #HTN -home meds: carvedilol 25mg QD, Nifedeipine 90mg QD #Dementia -C/w donepezil #FEN -trend lytes, replete PRN -sodium controlled diet #PPX DVT: SCDS, SQHep BID Visit type - Emergency Visit Emergency Visit: No - New Patient This patient is new to me today: No - Critical Care Critical Care patient: No - Discharge Referral Referred to [facility] Med P.C[facility] No ATTENDING PHYSICIAN STATEMENT I saw and evaluated the patient. I reviewed the resident's note and discussed the case with the resident. I agree with the resident's findings and plan as documented. SUBJECTIVE: OBJECTIVE: ASSESSMENT AND PLAN:
--- NOTE | 2019-08-11 11:28 | EKG ---
Test Reason : Blood Pressure : / mmHG Vent. Rate : 080 BPM Atrial Rate : 080 BPM P-R Int : 200 ms QRS Dur : 114 ms QT Int : 430 ms P-R-T Axes : 043 034 045 degrees QTc Int : 495 ms POOR DATA QUALITY, INTERPRETATION MAY BE ADVERSELY AFFECTED NORMAL SINUS RHYTHM POSSIBLE LEFT ATRIAL ENLARGEMENT POSSIBLE INFERIOR INFARCT (CITED ON OR BEFORE 09-SEP-2018) ABNORMAL ECG WHEN COMPARED WITH ECG OF 08-AUG-2019 01:49, NO SIGNIFICANT CHANGE WAS FOUND Confirmed by SHELLY JERRY MD ([id number]) on 08/11/2019 11:28:31 AM Referred By: Confirmed By:SHELLY JERRY MD
[2019-08-11] MEDS: BUDESONIDE/FORMETEROL FUMARATE 80/4.5 mcg INHALER IH SCH ×2 (11:30→21:41)
[2019-08-11] MEDS: CALCIUM CARBONATE 650 MG TABLET PO SCH (11:30)
[2019-08-11] MEDS: FUROSEMIDE 40 MG/4 ML INJECTABLE VIAL IVPUSH SCH (13:29)
[2019-08-11] MEDS: DONEPEZIL HCL 10 MG TABLET (FP) PO SCH (21:40)
[2019-08-12] MEDS: ALBUTEROL SO4 2.5/IPRATROPIUM 0.5 INH SOL 3 ML VIAL.NEB. NEB PRN ×2 (05:30→23:19)
[2019-08-12] MEDS ORDERED: FUROSEMIDE 40 MG/4 ML INJECTABLE VIAL IVPUSH SCH (06:00)
[2019-08-12] MEDS: HEPARIN NA (PORCINE) 5,000 UNITS/ML 1ML VIAL SQ SCH ×3 (06:18→21:32)
[2019-08-12 07:03] LABS: HEMATOCRIT 24.7 % (32.4-45.2); HEMOGLOBIN 7.9 GM/dL (10.7-15.3); MCH 25.1 pg (25.7-33.7); MCHC 32.1 g/dl (32.0-36.0); MEAN CELL VOLUME 78.2 fl (80-96); MEAN PLT VOLUME 9.6 fl (7.5-11.1); PLATELET COUNT 279 K/MM3 (134-434); RBC 3.17 M/mm3 (3.60-5.2); RDW 20.3 % (11.6-15.6); WHITE BLOOD COUNT 7.9 K/mm3 (4.0-10.0)
[2019-08-12 07:29] LABS: BLOOD UREA NITROGEN 29.3 mg/dL (7-18); CALCIUM 9.1 mg/dL (8.5-10.1); CREATININE 1.3 mg/dL (0.55-1.3); MAGNESIUM 2.3 mg/dL (1.8-2.4); PHOSPHOROUS 3.7 mg/dL (2.5-4.9)
[2019-08-12] MEDS ORDERED: PT OWN MED DRAWER 7, Y5N ONE (08:47)
--- NOTE | 2019-08-12 08:47 | PN ---
Progress Note, Physician History of Present Illness: Pt is a 68 yo F with PMHx asthma/ COPD, HFpEF, HTN, HLD, CVA, dementia brought in by daughter for SOB. Pt reports worsening SOB not relieved with her inhaler, worse with exertion, reports orthopnea and PND, b/l leg swelling. Pt reports eating a low salt diet, and does not remember her weight change since discharge on 08/08 when she was treated for COPD exacerbation. At last discharge, pt was noted not to have qualified for oxygen because pre and post test showed sats of 92, however in the EDtoday she was noted to have desaturated to about 86% on exertion requiring supplemental oxygen. No fevers, no cough, no increase in sputum production. Pt was discharged on 40mg PO of lasix and said she has been compliant with her medications. Pt denies chest pain, abdominal pain, or dysuria. 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 and underlying organic brain/dementia - Current Medication List Current Medications: Active Medications Albuterol/Ipratropium (Duoneb -) 1 amp NEB RQID PRN PRN Reason: SHORTNESS OF BREATH Last Admin: 08/12/19 05:30 Dose: 1 amp Allopurinol (Zyloprim -) 100 mg PO DAILY [facility] Last Admin: 08/11/19 09:33 Dose: 100 mg Aspirin (Asa -) 81 mg PO DAILY [facility] Last Admin: 08/11/19 09:33 Dose: 81 mg Budesonide/Formoterol Fumarate (Symbicort 80/4.5mcg -) 2 puff IH BID [facility] Last Admin: 08/11/19 21:41 Dose: 2 puff Calcium Carbonate (Calcium Carbonate -) 650 mg PO DAILY [facility] Last Admin: 08/11/19 11:30 Dose: 650 mg Carvedilol (Coreg -) 25 mg PO BID [facility] Last Admin: 08/11/19 21:40 Dose: 25 mg Cholecalciferol (Vitamin D3 -) 1,000 unit PO DAILY [facility] Last Admin: 08/11/19 09:33 Dose: 1,000 unit Donepezil HCl (Aricept -) 10 mg PO HS [facility] Last Admin: 08/11/19 21:40 Dose: 10 mg Ferrous Sulfate (Feosol -) 325 mg PO BID [facility] Last Admin: 08/11/19 21:40 Dose: 325 mg Furosemide (Lasix Injection -) 40 mg IVPUSH BIDLASIX [facility] Heparin Sodium (Porcine) (Heparin -) 5,000 unit SQ TID [facility] Last Admin: 08/12/19 06:18 Dose: 5,000 unit Nifedipine (Procardia Xl -) 90 mg PO DAILY [facility] Last Admin: 08/11/19 09:34 Dose: 90 mg - Objective Vital Signs: Vital Signs Temperature 97.9 F 08/12/19 06:00 Pulse Rate 75 08/12/19 06:00 Respiratory Rate 15 08/12/19 06:00 Blood Pressure 106/56 L 08/12/19 06:00 O2 Sat by Pulse Oximetry (%) 95 08/11/19 20:49 Eyes: Yes: WNL, Conjunctiva Clear, EOM Intact HENT: Yes: WNL, Atraumatic, Normocephalic Neck: Yes: WNL, Supple, Trachea Midline Cardiovascular: Yes: WNL, Regular Rate and Rhythm Respiratory: Yes: WNL, Regular, CTA Bilaterally Gastrointestinal: Yes: WNL, Normal Bowel Sounds Genitourinary: Yes: WNL Musculoskeletal: Yes: WNL Extremities: Yes: WNL Edema: No Integumentary: Yes: WNL Neurological: Yes: WNL, Alert, Oriented ...Motor Strength: WNL Psychiatric: Yes: WNL Labs: CBC, BMP 08/12/19 05:40 08/12/19 05:40 Problem List - Problems (1) Acute on chronic diastolic heart failure Code(s): I50.33 - ACUTE ON CHRONIC DIASTOLIC (CONGESTIVE) HEART FAILURE (2) Altered mental state Code(s): R41.82 - ALTERED MENTAL STATUS, UNSPECIFIED (3) Anemia Code(s): D64.9 - ANEMIA, UNSPECIFIED Qualifiers: Anemia type: iron deficiency (4) CKD (chronic kidney disease) Code(s): N18.9 - CHRONIC KIDNEY DISEASE, UNSPECIFIED Qualifiers: Chronic kidney disease stage: stage 2 (mild) Qualified Code(s): N18.2 - Chronic kidney disease, stage 2 (mild) (5) COPD with exacerbation Code(s): J44.1 - CHRONIC OBSTRUCTIVE PULMONARY DISEASE W (ACUTE) EXACERBATION (6) Cerebrovascular disease Code(s): I67.9 - CEREBROVASCULAR DISEASE, UNSPECIFIED (7) Coronary artery disease Code(s): I25.10 - ATHSCL HEART DISEASE OF [place] CORONARY ARTERY W/O ANG PCTRS (8) Decompensated heart failure Code(s): I50.9 - HEART FAILURE, UNSPECIFIED (9) Dementia Code(s): F03.90 - UNSPECIFIED DEMENTIA WITHOUT BEHAVIORAL DISTURBANCE (10) Dyspnea Code(s): R06.00 - DYSPNEA, UNSPECIFIED Qualifiers: Dyspnea type: orthopnea Qualified Code(s): R06.01 - Orthopnea (11) HTN (hypertension) Code(s): I10 - ESSENTIAL (PRIMARY) HYPERTENSION (12) Hypercholesteremia Code(s): E78.00 - PURE HYPERCHOLESTEROLEMIA, UNSPECIFIED (13) Morbid obesity Code(s): E66.01 - MORBID (SEVERE) OBESITY DUE TO EXCESS CALORIES (14) Old inferolateral myocardial infarction Code(s): I25.2 - OLD MYOCARDIAL INFARCTION (15) Respiratory failure with hypoxia Code(s): J96.91 - RESPIRATORY FAILURE, UNSPECIFIED WITH HYPOXIA Qualifiers: Chronicity: acute on chronic Qualified Code(s): J96.21 - Acute and chronic respiratory failure with hypoxia (16) Shortness of breath Code(s): R06.02 - SHORTNESS OF BREATH (17) TIA (transient ischemic attack) Code(s): G45.9 - TRANSIENT CEREBRAL ISCHEMIC ATTACK, UNSPECIFIED Assessment/Plan 68 year old female with underlying history of COPD/bronchial asthma, acute on chronic diastolic heart failure (HFpEF), HTN, hypercholesterolemia, CAD h/o [place], 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 Anemia PLan PRBC transfusion Anemia w/u IV lasix pulmonary treatment cont coreg and asa bp control dvyt plx cc time spent [address] Staples
[2019-08-12] MEDS: NIFEdipine E.R. 90 MG TABLET (FP) PO SCH (09:35)
[2019-08-12] MEDS: CARVEDILOL 25 MG TABLET (FP) PO SCH ×2 (09:35→21:32)
[2019-08-12] MEDS: FERROUS SO4 325 MG TABLET (FP) PO SCH ×2 (09:35→21:32)
[2019-08-12] MEDS: CHOLECALCIFEROL (VIT D3) 1,000 UNIT (25 MCG) TABLET PO SCH (09:35)
[2019-08-12] MEDS: ASPIRIN 81 MG CHEWABLE TABLETS PO SCH (09:36)
[2019-08-12] MEDS: CALCIUM CARBONATE 650 MG TABLET PO SCH (09:36)
[2019-08-12] MEDS: ALLOPURINOL 100 MG TABLET (FP) PO SCH (09:36)
[2019-08-12] MEDS: BUDESONIDE/FORMETEROL FUMARATE 80/4.5 mcg INHALER IH SCH ×2 (09:38→21:33)
--- NOTE | 2019-08-12 10:19 | PN ---
Physical Exam: SUBJECTIVE: Patient seen and examined, breathing improved, eager to go home. OBJECTIVE: Vital Signs Period Temp Pulse Resp BP Sys/Christensen Pulse Ox Last 24 Hr 97.9 F-98.2 F 75-88 12-22 106-159/44-69 95 Intake & Output 08/09/19 08/10/19 08/11/19 08/12/19 23:59 23:59 23:59 23:59 Intake Total 740 100 Balance 740 100 Weight 270 lb 274 lb 9.6 oz GENERAL: sitting in chair no acute distress neck: soft, supple Chest: Good air entry bilaterally, resolved fine basilar rales Abdomen:soft, obese, NT Extremities: improved pedal edema psych: pleasant, co-operative HEENT: PERRL, pallor Laboratory Results - last 24 hr 08/11/19 08/12/19 08/12/19 09:04 05:40 05:40 WBC 7.9 RBC 3.17 L Hgb 7.9 L Hct 24.7 L MCV 78.2 L MCH 25.1 L MCHC 32.1 RDW 20.3 H Plt Count 279 MPV 9.6 Sodium 138 139 Potassium 3.5 4.0 Chloride 105 108 H Carbon Dioxide 27 26 Anion Gap 6 L 6 L BUN 16.3 29.3 H Creatinine 1.2 1.3 Est GFR (CKD-EPI)AfAm 53.03 48.13 Est GFR (CKD-EPI)NonAf 45.75 41.53 Random Glucose 133 H 98 Calcium 9.1 9.1 Phosphorus 3.6 3.7 Magnesium 2.2 2.3 Total Bilirubin 1.0 AST 13 L ALT 13 Alkaline Phosphatase 125 H Troponin I 0.03 Total Protein 7.8 Albumin 3.2 L Blood Type Antibody Screen Crossmatch 08/12/19 08:50 WBC RBC Hgb Hct MCV MCH MCHC RDW Plt Count MPV Sodium Potassium Chloride Carbon Dioxide Anion Gap BUN Creatinine Est GFR (CKD-EPI)AfAm Est GFR (CKD-EPI)NonAf Random Glucose Calcium Phosphorus Magnesium Total Bilirubin AST ALT Alkaline Phosphatase Troponin I Total Protein Albumin Blood Type A POSITIVE Antibody Screen Negative Crossmatch See Detail Active Medications Generic Name Dose Route Start Last Admin Trade Name Freq PRN Reason Stop Dose Admin Albuterol/Ipratropium 1 amp 08/11/19 05:51 08/12/19 05:30 Duoneb - NEB 1 amp RQID PRN Administration SHORTNESS OF BREATH Allopurinol 100 mg 08/11/19 10:00 08/12/19 09:36 Zyloprim - PO 100 mg DAILY ARA Administration Aspirin 81 mg 08/11/19 10:00 08/12/19 09:36 Asa - PO 81 mg DAILY ARA Administration Budesonide/Formoterol Fumarate 2 puff 08/11/19 10:00 08/12/19 09:38 Symbicort 80/4.5mcg - IH 2 puff BID ARA Administration Calcium Carbonate 650 mg 08/11/19 10:00 08/12/19 09:36 Calcium Carbonate - PO 650 mg DAILY ARA Administration Carvedilol 25 mg 08/11/19 10:00 08/12/19 09:35 Coreg - PO 25 mg BID ARA Administration Cholecalciferol 1,000 unit 08/11/19 10:00 08/12/19 09:35 Vitamin D3 - PO 1,000 unit DAILY ARA Administration Donepezil HCl 10 mg 08/11/19 22:00 08/11/19 21:40 Aricept - PO 10 mg HS ARA Administration Ferrous Sulfate 325 mg 08/11/19 10:00 08/12/19 09:35 Feosol - PO 325 mg BID ARA Administration Furosemide 40 mg 08/12/19 06:00 Lasix Injection - IVPUSH BIDLASIX ARA Heparin Sodium (Porcine) 5,000 unit 08/11/19 06:00 08/12/19 06:18 Heparin - SQ 5,000 unit TID ARA Administration Nifedipine 90 mg 08/11/19 10:00 08/12/19 09:35 Procardia Xl - PO 90 mg DAILY ARA Administration telemetry: no acute events ASSESSMENT/PLAN: 68 yof with PMHx of COPD/bronchial asthma, acute on chronic diastolic heart failure (HFpEF), HTN, hypercholesterolemia, CAD h/o [place], 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 Continue ASA/statin/coreg/nifedipine for now. Titrate based on BP readings transfuse 1 unit PRBC. as symptomatic anemia could be contributory to her symptoms. Lasix 40mg IV BID for today, transition to PO in 24 hours. Cardiology input noted. Outpatient sleep study/Pulmonary follow up. Home oxygen needs assessment prior to dc. DVTPPX heparin Dispo dc in 24 hours if continues to improve. Plan discussed with patient and nursing, all questions answered. Visit type - Emergency Visit Emergency Visit: Yes ED Registration Date: 08/11/19 Care time: The patient presented to the Emergency Department on the above date and was hospitalized for further evaluation of their emergent condition. - New Patient This patient is new to me today: No - Critical Care Critical Care patient: No - Discharge Referral Referred to [facility] Med P.C.: No
[2019-08-12] MEDS: FUROSEMIDE 40 MG/4 ML INJECTABLE VIAL IVPUSH SCH ×2 (13:35→19:17)
[2019-08-12] MEDS: DONEPEZIL HCL 10 MG TABLET (FP) PO SCH (21:32)
[2019-08-13] MEDS: HEPARIN NA (PORCINE) 5,000 UNITS/ML 1ML VIAL SQ SCH ×3 (06:34→22:37)
[2019-08-13] MEDS: FUROSEMIDE 40 MG/4 ML INJECTABLE VIAL IVPUSH SCH ×2 (06:34→13:54)
[2019-08-13 07:02] LABS: BASO % 0.7 % (0-2.0); EOS % 3.9 % (0-4.5); HEMOGLOBIN 9.3 GM/dL (10.7-15.3); MCH 25.4 pg (25.7-33.7); MCHC 32.1 g/dl (32.0-36.0); MEAN CELL VOLUME 78.9 fl (80-96); MEAN PLT VOLUME 9.5 fl (7.5-11.1); MONO % 5.3 % (3.8-10.2); NEUT % 71.1 % (42.8-82.8); PLATELET COUNT 300 K/MM3 (134-434); RBC 3.68 M/mm3 (3.60-5.2); RDW 19.4 % (11.6-15.6); WHITE BLOOD COUNT 9.6 K/mm3 (4.0-10.0)
[2019-08-13 07:50] LABS: BLOOD UREA NITROGEN 33.7 mg/dL (7-18); CALCIUM 9.6 mg/dL (8.5-10.1); CREATININE 1.2 mg/dL (0.55-1.3); MAGNESIUM 2.3 mg/dL (1.8-2.4); PHOSPHOROUS 3.8 mg/dL (2.5-4.9); POTASSIUM 4.1 mmol/L (3.5-5.1)
--- NOTE | 2019-08-13 09:11 | PN ---
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 She denies palpitations, paroxysmal nocturnal dyspnea or orthopnea, near or true syncope She had seen Dr. Mir Rayo ([place]) at [facility] in [place] in the past. She was recently admitted to [place] with COPD and diastolic CHF exacerbation, [facility] for hypertensive urgency . - Current Medication List Current Medications: Active Medications Albuterol/Ipratropium (Duoneb -) 1 amp NEB RQID PRN PRN Reason: SHORTNESS OF BREATH Last Admin: 08/12/19 23:19 Dose: 1 amp Allopurinol (Zyloprim -) 100 mg PO DAILY [facility] Last Admin: 08/12/19 09:36 Dose: 100 mg Aspirin (Asa -) 81 mg PO DAILY [facility] Last Admin: 08/12/19 09:36 Dose: 81 mg Budesonide/Formoterol Fumarate (Symbicort 80/4.5mcg -) 2 puff IH BID [facility] Last Admin: 08/12/19 21:33 Dose: 2 puff Calcium Carbonate (Calcium Carbonate -) 650 mg PO DAILY [facility] Last Admin: 08/12/19 09:36 Dose: 650 mg Carvedilol (Coreg -) 25 mg PO BID [facility] Last Admin: 08/12/19 21:32 Dose: 25 mg Cholecalciferol (Vitamin D3 -) 1,000 unit PO DAILY [facility] Last Admin: 08/12/19 09:35 Dose: 1,000 unit Donepezil HCl (Aricept -) 10 mg PO HS [facility] Last Admin: 08/12/19 21:32 Dose: 10 mg Ferrous Sulfate (Feosol -) 325 mg PO BID [facility] Last Admin: 08/12/19 21:32 Dose: 325 mg Furosemide (Lasix Injection -) 40 mg IVPUSH BIDLASIX [facility] Last Admin: 08/13/19 06:34 Dose: 40 mg Heparin Sodium (Porcine) (Heparin -) 5,000 unit SQ TID [facility] Last Admin: 08/13/19 06:34 Dose: 5,000 unit Nifedipine (Procardia Xl -) 90 mg PO DAILY [facility] Last Admin: 08/12/19 09:35 Dose: 90 mg - Objective Vital Signs: Vital Signs Temperature 97.8 F 08/13/19 05:00 Pulse Rate 75 08/13/19 05:00 Respiratory Rate 15 08/13/19 05:00 Blood Pressure 128/56 L 08/13/19 05:00 O2 Sat by Pulse Oximetry (%) 98 08/13/19 05:08 Constitutional: Yes: No Distress, Calm Neck: Yes: Supple Cardiovascular: Yes: Regular Rate and Rhythm Respiratory: Yes: Regular, Diminished, On Nasal O2 Gastrointestinal: Yes: Normal Bowel Sounds, Soft, Abdomen, Obese Edema: Yes Edema: LLE: 2+, RLE: 2+ Labs: CBC, BMP 08/13/19 05:30 08/13/19 05:30 - ....Imaging Chest X-ray: Report Reviewed (Congestion) EKG: Report Reviewed (Tele: NSR) Problem List - Problems (1) Acute on chronic diastolic heart failure Code(s): I50.33 - ACUTE ON CHRONIC DIASTOLIC (CONGESTIVE) HEART FAILURE (2) Coronary artery disease Code(s): I25.10 - ATHSCL HEART DISEASE OF [place] CORONARY ARTERY W/O ANG PCTRS Qualifiers: Coronary Disease-Associated Artery/Lesion type: [place] artery [place] vs. transplanted heart: [place] heart Associated angina: without angina Qualified Code(s): I25.10 - Atherosclerotic heart disease of [place] coronary artery without angina pectoris (3) Decompensated heart failure Code(s): I50.9 - HEART FAILURE, UNSPECIFIED (4) HTN (hypertension) Code(s): I10 - ESSENTIAL (PRIMARY) HYPERTENSION Qualifiers: Hypertension type: unspecified Qualified Code(s): I10 - Essential (primary ) hypertension (5) Hypercholesteremia Code(s): E78.00 - PURE HYPERCHOLESTEROLEMIA, UNSPECIFIED (6) Morbid obesity Code(s): E66.01 - MORBID (SEVERE) OBESITY DUE TO EXCESS CALORIES (7) Old inferolateral myocardial infarction Code(s): I25.2 - OLD MYOCARDIAL INFARCTION (8) Respiratory failure with hypoxia Code(s): J96.91 - RESPIRATORY FAILURE, UNSPECIFIED WITH HYPOXIA Qualifiers: Chronicity: acute on chronic Qualified Code(s): J96.21 - Acute and chronic respiratory failure with hypoxia (9) Shortness of breath Code(s): R06.02 - SHORTNESS OF BREATH Assessment/Plan 08/09/2019 [facility] Myoview: No ischemia, LVEF 60% 07/2019 Echo [facility]: Normal LV size and fxn inferolateral and basal inferior RWMA 2012 LH: 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 Shortness of breath, acute on chonic hypoxemic respiratory failure due to recurrent acute on chronic LV diastolic failure (HFpEF) 2. 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 COPD 4. HTN heart disease 5. Hypercholesterolemia 6. Cerebrovascular disease 7. 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 CKD 10. Colonic polyps and diverticulosis 11. OSAS suspect 12. Anemia post pRBC transfusion PLAN: 1. Trops plateaued 2. Continue Carvedilol 25 mg BID, ASA 81 qd, Procardia XL 90 qd, Lipitor 80 mg QHS, add Diovan 80 qd and uptitrate as hemodynamics tolerate 3. IV diuresis with monitoring diuretic response, renal function and electrolytes 4. Bronchodilator, O2 as needed 5. Outpatient PSG 6. DVT prophylaxis, wrap legs 7. Consider R&LHc once euvolemic given recurrent HFpEF presentations, outpatient vs Wed transfer if patient amenable
[2019-08-13] MEDS: ALLOPURINOL 100 MG TABLET (FP) PO SCH (09:33)
[2019-08-13] MEDS: CARVEDILOL 25 MG TABLET (FP) PO SCH ×2 (09:33→22:37)
[2019-08-13] MEDS: CHOLECALCIFEROL (VIT D3) 1,000 UNIT (25 MCG) TABLET PO SCH (09:33)
[2019-08-13] MEDS: ASPIRIN 81 MG CHEWABLE TABLETS PO SCH (09:33)
[2019-08-13] MEDS: FERROUS SO4 325 MG TABLET (FP) PO SCH ×2 (09:33→22:37)
[2019-08-13] MEDS: NIFEdipine E.R. 90 MG TABLET (FP) PO SCH (09:33)
[2019-08-13] MEDS: BUDESONIDE/FORMETEROL FUMARATE 80/4.5 mcg INHALER IH SCH ×2 (09:35→22:38)
[2019-08-13] MEDS: CALCIUM CARBONATE 650 MG TABLET PO SCH (09:41)
[2019-08-13] MEDS ORDERED: FUROSEMIDE 40 MG/4 ML INJECTABLE VIAL IVPUSH ONE (10:17)
--- NOTE | 2019-08-13 10:21 | PN ---
Teaching Attending Note Name of Resident: Matt Hall ATTENDING PHYSICIAN STATEMENT I saw and evaluated the patient. I reviewed the resident's note and discussed the case with the resident. I agree with the resident's findings and plan as documented with exceptions below. SUBJECTIVE: Patient seen and examined, episode of dyspnea/wheezing overnight that improved with nebs and oxygen. Currently better. No dyspnea or complaints currently. OBJECTIVE: Vital Signs Period Temp Pulse Resp BP Sys/Christensen Pulse Ox Last 24 Hr 97.4 F-98.6 F 70-83 15-21 128-159/52-79 84-98 Intake & Output 08/10/19 08/11/19 08/12/19 08/13/19 23:59 23:59 23:59 23:59 Intake Total 740 1210 80 Balance 740 1210 80 Weight 270 lb 274 lb 9.6 oz General: sitting in chair, no acute distress or use of accessory muscles of respiration, able to talk in full sentences Neck; soft, supple, limited exam Chest: fine bibasilar rales, more than yesterday, no wheezing Abdomen:Soft, obese, NT Extremities: bilateral 2+ LE edema, L>R, worse than yesterday Home Medications Medication Instructions Recorded Allopurinol [Zyloprim -] 100 mg PO DAILY 09/10/18 Donepezil HCl 10 mg PO HS 09/10/18 Calcium Carbonate [Calcium] 600 mg PO DAILY 07/17/19 Ergocalciferol (Vitamin D2) 25 mcg PO DAILY 07/17/19 [Vitamin D2] Ferrous Sulfate 325 mg PO BID #60 tablet 07/25/19 Carvedilol 25 mg PO BID 08/08/19 Fluticasone Propion/Salmeterol 1 each IH BID 08/08/19 [Fluticasone-Salmeterol 500-50] Furosemide 40 mg PO DAILY 08/08/19 Nifedipine [Nifedipine ER] 90 mg PO DAILY 08/08/19 Albuterol 0.083% Nebulizer Malorie 1 neb NEB Q4H PRN 08/09/19 [Ventolin 0.083% Nebulizer Soln -] Aspirin [ASA -] 81 mg PO DAILY tab.chew 08/09/19 Active Medications Albuterol/Ipratropium (Duoneb -) 1 amp NEB RQID PRN PRN Reason: SHORTNESS OF BREATH Last Admin: 08/12/19 23:19 Dose: 1 amp Allopurinol (Zyloprim -) 100 mg PO DAILY [facility] Last Admin: 08/13/19 09:33 Dose: 100 mg Aspirin (Asa -) 81 mg PO DAILY [facility] Last Admin: 08/13/19 09:33 Dose: 81 mg Budesonide/Formoterol Fumarate (Symbicort 80/4.5mcg -) 2 puff IH BID [facility] Last Admin: 08/13/19 09:35 Dose: 2 puff Calcium Carbonate (Calcium Carbonate -) 650 mg PO DAILY [facility] Last Admin: 08/13/19 09:41 Dose: 650 mg Carvedilol (Coreg -) 25 mg PO BID [facility] Last Admin: 08/13/19 09:33 Dose: 25 mg Cholecalciferol (Vitamin D3 -) 1,000 unit PO DAILY [facility] Last Admin: 08/13/19 09:33 Dose: 1,000 unit Donepezil HCl (Aricept -) 10 mg PO HS [facility] Last Admin: 08/12/19 21:32 Dose: 10 mg Ferrous Sulfate (Feosol -) 325 mg PO BID [facility] Last Admin: 08/13/19 09:33 Dose: 325 mg Furosemide (Lasix Injection -) 40 mg IVPUSH BID@0600,1400 [facility] Furosemide (Lasix Injection -) 20 mg IVPUSH ONCE ONE Stop: 08/13/19 10:18 Heparin Sodium (Porcine) (Heparin -) 5,000 unit SQ TID [facility] Last Admin: 08/13/19 06:34 Dose: 5,000 unit Nifedipine (Procardia Xl -) 90 mg PO DAILY [facility] Last Admin: 08/13/19 09:33 Dose: 90 mg Laboratory Results - last 24 hr 08/12/19 08/13/19 08/13/19 08:50 05:30 05:30 WBC 9.6 RBC 3.68 Hgb 9.3 L Hct 29.0 L D MCV 78.9 L MCH 25.4 L MCHC 32.1 RDW 19.4 H Plt Count 300 MPV 9.5 Absolute Neuts (auto) 6.8 Neutrophils % 71.1 D Lymphocytes % 19.0 D Monocytes % 5.3 D Eosinophils % 3.9 D Basophils % 0.7 Nucleated RBC % 0 Sodium 140 Potassium 4.1 Chloride 105 Carbon Dioxide 27 Anion Gap 8 BUN 33.7 H Creatinine 1.2 Est GFR (CKD-EPI)AfAm 53.03 Est GFR (CKD-EPI)NonAf 45.75 Random Glucose 89 Calcium 9.6 Phosphorus 3.8 Magnesium 2.3 Blood Type A POSITIVE Antibody Screen Negative Crossmatch See Detail CXR results and images reviewed telemetry: NSR with PVCs ASSESSMENT AND PLAN: 68 yof with PMHx of COPD/bronchial asthma, acute on chronic diastolic heart failure (HFpEF), HTN, hypercholesterolemia, CAD h/o [place], 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 ' lasix 40 mg IV BID, additional lasix 20 mg IV x1 Daily weights Continue ASA/statin/coreg/nifedipine for now. Titrate based on BP readings s/p 1 unit of PRBC with appopriate response. PO Fe and outpatient follow up. transfuse 1 unit PRBC. as symptomatic anemia could be contributory to her symptoms. Outpatient sleep study/Pulmonary follow up. Home oxygen needs assessment prior to dc. DVTPPX heparin Dispo dc on hold given ongoing dyspnea and need for IV diuresis. Plan discussed with patient, all questions answered.
[2019-08-13] MEDS: VALSARTAN 80 MG TABLET (UD) PO SCH (11:19)
--- NOTE | 2019-08-13 11:59 | PN ---
Physical Exam: SUBJECTIVE: Patient seen and examined O/N: had SOB, night team recommended duonebs. Tele showing PVCs, nonsustained. Finished pRBC transfusion yesterday afternoon Endorses feeling better with breathing. Denies SOB, cough, CP, palpitations. OBJECTIVE: Vital Signs Period Temp Pulse Resp BP Sys/Christensen Pulse Ox Last 24 Hr 97.4 F-98.6 F 70-83 15-21 128-159/52-79 84-98 GENERAL: The patient is awake, alert. NAD HEAD: NC/AT. EYES: sclera anicteric, mild conjunctival pallor. ENT: Ears normal, nares patent, moist mucous membranes. Poor dentition NECK: Trachea midline, full range of motion, supple. LUNGS: mild b/l expiratory wheezes, mild b/l fine crackles at lung bases, no accessory muscle use. Breathing comfortably on NC 2L. Speaking in full sentences w/o issues HEART: Regular rate and rhythm, S1, S2 without murmur, rub or gallop. ABDOMEN: Soft, nontender, nondistended, no guarding, no rebound. EXTREMITIES: 2+ pulses, warm, well-perfused, nonpitting edema to BLE NEUROLOGICAL: Normal speech PSYCH: Normal mood, normal affect. SKIN: Warm, dry, normal turgor, no rashes or lesions noted Laboratory Results - last 24 hr 08/13/19 08/13/19 05:30 05:30 WBC 9.6 RBC 3.68 Hgb 9.3 L Hct 29.0 L D MCV 78.9 L MCH 25.4 L MCHC 32.1 RDW 19.4 H Plt Count 300 MPV 9.5 Absolute Neuts (auto) 6.8 Neutrophils % 71.1 D Lymphocytes % 19.0 D Monocytes % 5.3 D Eosinophils % 3.9 D Basophils % 0.7 Nucleated RBC % 0 Sodium 140 Potassium 4.1 Chloride 105 Carbon Dioxide 27 Anion Gap 8 BUN 33.7 H Creatinine 1.2 Est GFR (CKD-EPI)AfAm 53.03 Est GFR (CKD-EPI)NonAf 45.75 Random Glucose 89 Calcium 9.6 Phosphorus 3.8 Magnesium 2.3 Active Medications Generic Name Dose Route Start Last Admin Trade Name Freq PRN Reason Stop Dose Admin Albuterol/Ipratropium 1 amp 08/11/19 05:51 08/12/19 23:19 Duoneb - NEB 1 amp RQID PRN Administration SHORTNESS OF BREATH Allopurinol 100 mg 08/11/19 10:00 08/13/19 09:33 Zyloprim - PO 100 mg DAILY ARA Administration Aspirin 81 mg 08/11/19 10:00 08/13/19 09:33 Asa - PO 81 mg DAILY ARA Administration Budesonide/Formoterol Fumarate 2 puff 08/11/19 10:00 08/13/19 09:35 Symbicort 80/4.5mcg - IH 2 puff BID ARA Administration Calcium Carbonate 650 mg 08/11/19 10:00 08/13/19 09:41 Calcium Carbonate - PO 650 mg DAILY ARA Administration Carvedilol 25 mg 08/11/19 10:00 08/13/19 09:33 Coreg - PO 25 mg BID ARA Administration Cholecalciferol 1,000 unit 08/11/19 10:00 08/13/19 09:33 Vitamin D3 - PO 1,000 unit DAILY ARA Administration Donepezil HCl 10 mg 08/11/19 22:00 08/12/19 21:32 Aricept - PO 10 mg HS ARA Administration Ferrous Sulfate 325 mg 08/11/19 10:00 08/13/19 09:33 Feosol - PO 325 mg BID ARA Administration Furosemide 40 mg 08/13/19 14:00 Lasix Injection - IVPUSH BID@0600,1400 [facility] Heparin Sodium (Porcine) 5,000 unit 08/11/19 06:00 08/13/19 06:34 Heparin - SQ 5,000 unit TID ARA Administration Nifedipine 90 mg 08/11/19 10:00 08/13/19 09:33 Procardia Xl - PO 90 mg DAILY ARA Administration Valsartan 80 mg 08/13/19 11:00 08/13/19 11:19 Diovan - PO 80 mg DAILY ARA Administration ASSESSMENT/PLAN: 68 y.o. 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 Admitted for CHFe. At [facility] , pt found to be hypoxic w/ ABG showing pO2 62.6, saturating to a reported 86% w / ambulation. BNP ~2440. CXR showing pulmonary congestion. Given albuterol, lasix, solumedrol. Having intermittent SOB which prompted ventimask. Now improved, on 2L NC. #Acute HFpEF exacerbation >BNP(08/11/19) ~2440.8 >BNP(08/13/19) ~3205 >troponin 0.04, 0.03 >Echo(07/17/19): LVEF 55%, mild LVH, LA dilation >Stress Test(08/09/19): normal -Lasix 40mg IVP x1 --> Lasix 40mg IVP BID, given additional Lasix 20mg IV on 08/21 -Solumedrol IV 125mg x1 -- dc'd -Is & Os -Daily weights: 122.4kg at admission --> 124kg -Cardio consulted (Dr. Rosado, Dr Christiansen) --cw IV lasix, pulm tx, carvedilol + ASA, BP control --started valsartan[DIOVAN] 80mg QD --Consider R&LHc once euvolemic given recurrent HFpEF presentations, outpatient vs Wed transfer if patient amenable #SOB 2/2 to HFrEF >CXR(08/11/19): pulmon congestion >CXR(08/13/19): pulm congestion, slightly improved >ABG(07/17/19): 7.44/38.1/62.6/25.1/90.8/1.4 on RA - supplemental O2 PRN if O2 <92% - Pulm(Ghosh) consult: -- BD -- defer steroids at this time -- outpt PFT, NPSG #chronic microcytic anemia > Hgb(baseline ~8-9): 8.3 > colonoscopy(07/23/19): rectosigmoid polyps, sigmoid diverticulosis, mid diverticulosis throughout rest of colon #CPOD -duonebs PRN -cw home budesonide/Formeterol -supplemental O2 PRN -will assess Pre and Post O2 prior to discharge #HTN -home meds: carvedilol 25mg QD, Nifedeipine 90mg QD #Dementia -C/w donepezil #FEN -trend lytes, replete PRN -sodium controlled diet #PPX DVT: SCDS, SQHep BID Visit type - Emergency Visit Emergency Visit: No - New Patient This patient is new to me today: No - Critical Care Critical Care patient: No ATTENDING PHYSICIAN STATEMENT I saw and evaluated the patient. I reviewed the resident's note and discussed the case with the resident. I agree with the resident's findings and plan as documented. SUBJECTIVE: OBJECTIVE: ASSESSMENT AND PLAN:
[2019-08-13 12:00] LABS: N-TERMINAL BNP 3205.9 pg/ml (5-125)
--- NOTE | 2019-08-13 12:10 | CON.PULM ---
Consult Consult Specialty:: PULMONARY Referred by:: Dr Smith Reason for Consultation:: shortness of breath - History of Present Illness Chief Complaint: shortness of breath History of Present Illness: 68yo female with h/o HTN, hypercholesterolemia, CAD, COPD/asthma, dementia who was admitted with worsening shortness of breath. Denies chest pain or palpitations. Reports increasing swelling in her legs. No cough or wheezing. No fevers, chills or sweats. Started on IV lasix with improvement in her symptoms. CXR also improving with diuresis. She is maintained on Symbicort at home. Smokes 1 cigarette/day, was a prior pack a day smoker. - History Source History Provided By: Patient, Medical Record Limitations to Obtaining History: No Limitations - Past Medical History MODEL [employer] P[employer]ER: Yes: CVA, Dementia Cardio/Vascular: Yes: CHF (Diastolic dysfunction), HTN, Hyperlipdemia Pulmonary: Yes: Asthma, COPD Gastrointestinal: Yes: Diverticulitis - Past Surgical History Past Surgical History: Yes: Hysterectomy - Alcohol/Substance Use Hx Alcohol Use: No History of Substance Use: reports: None - Smoking History Smoking history: Former smoker Have you smoked in the past 12 months: No Aproximately how many cigarettes per day: 10 If you are a former smoker, when did you quit?: 2018 Home Medications - Allergies Allergies/Adverse Reactions: Allergies Allergy/AdvReac Type Severity Reaction Status Date / Time No Known Drug Allergies Allergy Verified 08/11/19 02:24 Shellfish Allergy Uncoded 08/11/19 02:24 - Home Medications Home Medications: Ambulatory Orders Allopurinol [Zyloprim -] 100 mg PO DAILY 09/10/18 Donepezil HCl 10 mg PO HS 09/10/18 Calcium Carbonate [Calcium] 600 mg PO DAILY 07/17/19 Ergocalciferol (Vitamin D2) [Vitamin D2] 25 mcg PO DAILY 07/17/19 Ferrous Sulfate 325 mg PO BID #60 tablet 07/25/19 Carvedilol 25 mg PO BID 08/08/19 Fluticasone Propion/Salmeterol [Fluticasone-Salmeterol 500-50] 1 each IH BID 03/21 Furosemide 40 mg PO DAILY 08/08/19 Nifedipine [Nifedipine ER] 90 mg PO DAILY 08/08/19 Albuterol 0.083% Nebulizer Malorie [Ventolin 0.083% Nebulizer Soln -] 1 neb NEB Q4H PRN 08/09/19 Aspirin [ASA -] 81 mg PO DAILY tab.chew 08/09/19 Review of Systems - Review of Systems Constitutional: denies: Chills, Fever Eyes: denies: Recent Change in Vision HENT: denies: Nasal Congestion, Throat Pain Neck: denies: Stiffness, Tenderness Cardiovascular: reports: Edema, Shortness of Breath. denies: Chest Pain, Palpitations Respiratory: reports: SOB. denies: Cough, Hemoptysis, Wheezing Gastrointestinal: denies: Abdominal Pain, Nausea, Vomiting Genitourinary: denies: Dysuria, Hematuria Neurological: denies: Dizziness, Headache Endocrine: denies: Unexplained Weight Loss Physical Exam Vital Sings: Vital Signs Temperature 97.8 F 08/13/19 05:00 Pulse Rate 75 08/13/19 05:00 Respiratory Rate 15 08/13/19 09:00 Blood Pressure 128/56 L 08/13/19 05:00 O2 Sat by Pulse Oximetry (%) 95 08/13/19 09:00 Constitutional: Yes: Calm Eyes: Yes: Conjunctiva Clear, EOM Intact HENT: Yes: Atraumatic, Normocephalic Neck: Yes: Trachea Midline Cardiovascular: Yes: Regular Rate and Rhythm Respiratory: Yes: Diminished (decreased breath sounds at the bases) ...Clubbing: No Gastrointestinal: Yes: Normal Bowel Sounds, Soft. No: Tenderness Edema: Yes Labs: CBC, BMP 08/13/19 05:30 08/13/19 05:30 ABG Results ABG pH 7.44 (7.35-7.45) 08/11/19 06:45 ABG pCO2 at Pt Temp 38.1 mmHg (35-45) 08/11/19 06:45 ABG pO2 at Pt Temp 62.6 mmHg (80-100) L 08/11/19 06:45 ABG HCO3 25.1 mmol/L (22-27) 08/11/19 06:45 ABG O2 Sat (Measured) 90.8 % (95-98) L 08/11/19 06:45 ABG O2 Content 10.3 % vol 08/11/19 06:45 ABG Base Excess 1.4 meq/l (-2-2) 08/11/19 06:45 Imaging - Results Chest X-ray: Report Reviewed, Image Reviewed (pulmonary vascular congestion) Problem List - Problems (1) Acute on chronic diastolic heart failure Code(s): I50.33 - ACUTE ON CHRONIC DIASTOLIC (CONGESTIVE) HEART FAILURE Assessment/Plan Acute Hypoxic Respiratory Failure Acute on Chronic Diastolic Heart Failure CAD COPD HTN Hyperlipidemia Dementia Anemia Likely Obstructive Sleep Apnea h/o CVA CKD - continue lasix - monitor urine output, creatinine - daily weights - O2 to keep SpO2 >90% - inhaled bronchodilators - can defer systemic steroids at this time - outpt PFTs and NPSG - DVT prophylaxis Thank you for this consult Mir Ghosh MD
[2019-08-13] MEDS: DONEPEZIL HCL 10 MG TABLET (FP) PO SCH (22:37)
[2019-08-14] MEDS: FUROSEMIDE 40 MG/4 ML INJECTABLE VIAL IVPUSH SCH (06:14)
[2019-08-14] MEDS: HEPARIN NA (PORCINE) 5,000 UNITS/ML 1ML VIAL SQ SCH ×3 (06:14→21:27)
[2019-08-14 07:00] LABS: HEMOGLOBIN 8.7 GM/dL (10.7-15.3); MCH 25.6 pg (25.7-33.7); MCHC 32.1 g/dl (32.0-36.0); MEAN CELL VOLUME 79.8 fl (80-96); MEAN PLT VOLUME 9.5 fl (7.5-11.1); PLATELET COUNT 272 K/MM3 (134-434); RBC 3.38 M/mm3 (3.60-5.2); RDW 20.1 % (11.6-15.6); WHITE BLOOD COUNT 9.6 K/mm3 (4.0-10.0)
[2019-08-14 07:48] LABS: ALBUMIN 2.6 g/dl (3.4-5.0); BILIRUBIN,TOTAL 0.6 mg/dL (0.2-1); BLOOD UREA NITROGEN 33.6 mg/dL (7-18); CREATININE 1.5 mg/dL (0.55-1.3); MAGNESIUM 2.4 mg/dL (1.8-2.4); PHOSPHOROUS 4.4 mg/dL (2.5-4.9); POTASSIUM 3.7 mmol/L (3.5-5.1); TOT PROT 6.2 g/dl (6.4-8.2)
[2019-08-14] MEDS ORDERED: PT OWN MED DRAWER 7, Y5N ONE ×2 (09:04→21:13)
[2019-08-14] MEDS: FERROUS SO4 325 MG TABLET (FP) PO SCH ×2 (09:38→21:27)
[2019-08-14] MEDS: ALLOPURINOL 100 MG TABLET (FP) PO SCH (09:38)
[2019-08-14] MEDS: CARVEDILOL 25 MG TABLET (FP) PO SCH ×2 (09:38→21:27)
[2019-08-14] MEDS: VALSARTAN 80 MG TABLET (UD) PO SCH (09:38)
[2019-08-14] MEDS: ASPIRIN 81 MG CHEWABLE TABLETS PO SCH (09:38)
[2019-08-14] MEDS: CHOLECALCIFEROL (VIT D3) 1,000 UNIT (25 MCG) TABLET PO SCH (09:38)
[2019-08-14] MEDS: NIFEdipine E.R. 90 MG TABLET (FP) PO SCH (09:41)
[2019-08-14] MEDS: BUDESONIDE/FORMETEROL FUMARATE 80/4.5 mcg INHALER IH SCH ×2 (10:30→21:27)
[2019-08-14] MEDS: CALCIUM CARBONATE 650 MG TABLET PO SCH (11:00)
--- NOTE | 2019-08-14 12:18 | PN ---
Progress Note (short form) - Note Progress Note: PULMONARY Denies shortness of breath, cough or chest pain. Vital Signs Period Temp Pulse Resp BP Sys/Christensen Pulse Ox Last 24 Hr 98.1 F-98.7 F 62-79 14-18 103-132/35-88 95-96 Intake & Output 08/11/19 08/12/19 08/13/19 08/14/19 23:59 23:59 23:59 23:59 Intake Total 740 1210 440 100 Balance 740 1210 440 100 Weight 122.47 kg 124.556 kg 124.3 kg Gen: NAD at rest Heart: RRR Lung: decreased breath sounds at the bases Abd: soft, nontender Ext: + edema CBC, BMP 08/14/19 05:30 08/14/19 05:30 Active Medications Albuterol/Ipratropium (Duoneb -) 1 amp NEB RQID PRN PRN Reason: SHORTNESS OF BREATH Last Admin: 08/12/19 23:19 Dose: 1 amp Allopurinol (Zyloprim -) 100 mg PO DAILY [facility] Last Admin: 08/14/19 09:38 Dose: 100 mg Aspirin (Asa -) 81 mg PO DAILY [facility] Last Admin: 08/14/19 09:38 Dose: 81 mg Budesonide/Formoterol Fumarate (Symbicort 80/4.5mcg -) 2 puff IH BID [facility] Last Admin: 08/13/19 22:38 Dose: 2 puff Calcium Carbonate (Calcium Carbonate -) 650 mg PO DAILY [facility] Last Admin: 08/13/19 09:41 Dose: 650 mg Carvedilol (Coreg -) 25 mg PO BID [facility] Last Admin: 08/14/19 09:38 Dose: 25 mg Cholecalciferol (Vitamin D3 -) 1,000 unit PO DAILY [facility] Last Admin: 08/14/19 09:38 Dose: 1,000 unit Donepezil HCl (Aricept -) 10 mg PO HS [facility] Last Admin: 08/13/19 22:37 Dose: 10 mg Ferrous Sulfate (Feosol -) 325 mg PO BID [facility] Last Admin: 08/14/19 09:38 Dose: 325 mg Furosemide (Lasix Injection -) 40 mg IVPUSH BID@0600,1400 [facility] Last Admin: 08/14/19 06:14 Dose: 40 mg Heparin Sodium (Porcine) (Heparin -) 5,000 unit SQ TID [facility] Last Admin: 08/14/19 06:14 Dose: 5,000 unit Nifedipine (Procardia Xl -) 90 mg PO DAILY [facility] Last Admin: 08/14/19 09:41 Dose: 90 mg Valsartan (Diovan -) 80 mg PO DAILY [facility] Last Admin: 08/14/19 09:38 Dose: 80 mg A/P Acute Hypoxic Respiratory Failure improving Acute on Chronic Diastolic Heart Failure CAD COPD HTN Hyperlipidemia Dementia Anemia Likely Obstructive Sleep Apnea h/o CVA CKD - continue lasix - monitor urine output, creatinine - daily weights - O2 to keep SpO2 >90% - inhaled bronchodilators - can defer systemic steroids at this time - outpt PFTs and NPSG - cardiology considering catheterization - DVT prophylaxis Problem List - Problems (1) Acute on chronic diastolic heart failure Code(s): I50.33 - ACUTE ON CHRONIC DIASTOLIC (CONGESTIVE) HEART FAILURE
--- NOTE | 2019-08-14 13:03 | PN ---
Progress Note, Physician Chief Complaint: Events noted Not in distress History of Present Illness: Patient was seen and examined. Awake and alert. Chart was reviewed Denies chest pain, SOB or palpitations - Current Medication List Current Medications: Active Medications Albuterol/Ipratropium (Duoneb -) 1 amp NEB RQID PRN PRN Reason: SHORTNESS OF BREATH Last Admin: 08/12/19 23:19 Dose: 1 amp Allopurinol (Zyloprim -) 100 mg PO DAILY [facility] Last Admin: 08/14/19 09:38 Dose: 100 mg Aspirin (Asa -) 81 mg PO DAILY [facility] Last Admin: 08/14/19 09:38 Dose: 81 mg Budesonide/Formoterol Fumarate (Symbicort 80/4.5mcg -) 2 puff IH BID [facility] Last Admin: 08/13/19 22:38 Dose: 2 puff Calcium Carbonate (Calcium Carbonate -) 650 mg PO DAILY [facility] Last Admin: 08/13/19 09:41 Dose: 650 mg Carvedilol (Coreg -) 25 mg PO BID [facility] Last Admin: 08/14/19 09:38 Dose: 25 mg Cholecalciferol (Vitamin D3 -) 1,000 unit PO DAILY [facility] Last Admin: 08/14/19 09:38 Dose: 1,000 unit Donepezil HCl (Aricept -) 10 mg PO HS [facility] Last Admin: 08/13/19 22:37 Dose: 10 mg Ferrous Sulfate (Feosol -) 325 mg PO BID [facility] Last Admin: 08/14/19 09:38 Dose: 325 mg Furosemide (Lasix Injection -) 40 mg IVPUSH DAILY [facility] Heparin Sodium (Porcine) (Heparin -) 5,000 unit SQ TID [facility] Last Admin: 08/14/19 06:14 Dose: 5,000 unit Nifedipine (Procardia Xl -) 90 mg PO DAILY [facility] Last Admin: 08/14/19 09:41 Dose: 90 mg Valsartan (Diovan -) 80 mg PO DAILY [facility] Last Admin: 08/14/19 09:38 Dose: 80 mg - Objective Vital Signs: Vital Signs Temperature 98.1 F 08/14/19 08:00 Pulse Rate 63 08/14/19 10:00 Respiratory Rate 17 08/14/19 10:00 Blood Pressure 110/57 L 08/14/19 10:00 O2 Sat by Pulse Oximetry (%) 96 08/13/19 21:00 HENT: Yes: Atraumatic Neck: Yes: Supple Cardiovascular: Yes: Regular Rate and Rhythm, S1, S2 Respiratory: Yes: Diminished Gastrointestinal: Yes: Normal Bowel Sounds, Soft. No: Tenderness Edema: Yes (Wrapped) Edema: LLE: 2+, RLE: 2+ Additional Findings/Remarks: - Review of Systems Constitutional: denies: Chills, Fever Cardiovascular: reports: Shortness of Breath. denies: Chest Pain, Palpitations Respiratory: reports: Cough, SOB, SOB on Exertion. denies: Hemoptysis, Orthopnea, PND, Wheezing Gastrointestinal: denies: Abdominal Pain, Constipation, Diarrhea, Melena, Nausea , Rectal Bleeding, Vomiting Genitourinary: denies: Dysuria, Hematuria Musculoskeletal: denies: Back Pain, Joint Pain Neurological: denies: Dizziness, Headache, Seizure, Syncope Labs: CBC, BMP 08/14/19 05:30 08/14/19 05:30 Problem List - Problems (1) CHF (congestive heart failure) Code(s): I50.9 - HEART FAILURE, UNSPECIFIED (2) Acute on chronic diastolic heart failure Code(s): I50.33 - ACUTE ON CHRONIC DIASTOLIC (CONGESTIVE) HEART FAILURE (3) Anemia Code(s): D64.9 - ANEMIA, UNSPECIFIED Qualifiers: Anemia type: iron deficiency (4) CKD (chronic kidney disease) Code(s): N18.9 - CHRONIC KIDNEY DISEASE, UNSPECIFIED Qualifiers: Chronic kidney disease stage: stage 2 (mild) Qualified Code(s): N18.2 - Chronic kidney disease, stage 2 (mild) (5) COPD with exacerbation Code(s): J44.1 - CHRONIC OBSTRUCTIVE PULMONARY DISEASE W (ACUTE) EXACERBATION (6) Cerebrovascular disease Code(s): I67.9 - CEREBROVASCULAR DISEASE, UNSPECIFIED (7) Coronary artery disease Code(s): I25.10 - ATHSCL HEART DISEASE OF [place] CORONARY ARTERY W/O ANG PCTRS Qualifiers: Coronary Disease-Associated Artery/Lesion type: [place] artery [place] vs. transplanted heart: [place] heart Associated angina: without angina Qualified Code(s): I25.10 - Atherosclerotic heart disease of [place] coronary artery without angina pectoris (8) HTN (hypertension) Code(s): I10 - ESSENTIAL (PRIMARY) HYPERTENSION Qualifiers: Hypertension type: unspecified Qualified Code(s): I10 - Essential (primary ) hypertension (9) Hypercholesteremia Code(s): E78.00 - PURE HYPERCHOLESTEROLEMIA, UNSPECIFIED (10) Old inferolateral myocardial infarction Code(s): I25.2 - OLD MYOCARDIAL INFARCTION Assessment/Plan 1. Acute on chronic hypoxemic respiratory failure due to recurrent acute on chronic LV diastolic failure (HFpEF) 2. 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 COPD 4. HTN 5. Hypercholesterolemia 6. Cerebrovascular disease 7. History of diverticulitis/diverticulosis and colon polyps 8. 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 Organic brain/dementia 10. CKD 11. OSAS PLAN: 1. Continue Carvedilol 25 mg BID, ASA 81 mg QD, Procardia XL 90 mg QD, Lipitor 80 mg QHS and Diovan 80 mg QD (uptitrate as tolerated) 2. IV diuresis with monitoring renal function and electrolytes 3. Bronchodilator and O2 as needed 4. Sleep study 5. DVT prophylaxis and continue to wrap legs 6. Consider R & L heart catheterization once euvolemic. Will discuss with Dr. Rosado for timing Harvinder Staples MD
[2019-08-14 13:13] VITALS: BMI 42.9
--- NOTE | 2019-08-14 14:09 | PN ---
Physical Exam: SUBJECTIVE: Patient seen and examined NAEON. Tele showing PVCs, nonsustained Endorses worsening of foot swelling. Denies SOB. OBJECTIVE: Vital Signs Period Temp Pulse Resp BP Sys/Christensen Pulse Ox Last 24 Hr 97.8 F-98.7 F 58-79 13-18 103-132/35-88 95-96 GENERAL: The patient is awake, alert. NAD HEAD: NC/AT. EYES: sclera anicteric, mild conjunctival pallor. ENT: Ears normal, nares patent, moist mucous membranes. Poor dentition NECK: Trachea midline, full range of motion, supple. LUNGS: mild b/l fine crackles at lung bases, no accessory muscle use. Breathing comfortably on RA. Speaking in full sentences HEART: Regular rate and rhythm, S1, S2 without murmur, rub or gallop. ABDOMEN: Soft, nontender, nondistended, no guarding, no rebound. EXTREMITIES: 2+ pulses of DPs, warm, well-perfused. 1+ pitting edema to BLE, up to shins. Compressive MARY wraps in place NEUROLOGICAL: Normal speech PSYCH: Normal mood, normal affect. SKIN: Warm, dry, normal turgor, no rashes or lesions noted Laboratory Results - last 24 hr 08/14/19 08/14/19 05:30 05:30 WBC 9.6 RBC 3.38 L Hgb 8.7 L Hct 27.0 L MCV 79.8 L MCH 25.6 L MCHC 32.1 RDW 20.1 H Plt Count 272 MPV 9.5 Sodium 138 Potassium 3.7 Chloride 105 Carbon Dioxide 27 Anion Gap 6 L BUN 33.6 H Creatinine 1.5 H Est GFR (CKD-EPI)AfAm 40.49 Est GFR (CKD-EPI)NonAf 34.93 Random Glucose 84 Calcium 9.0 Phosphorus 4.4 Magnesium 2.4 Total Bilirubin 0.6 AST 10 L ALT 11 L Alkaline Phosphatase 93 Total Protein 6.2 L Albumin 2.6 L Active Medications Generic Name Dose Route Start Last Admin Trade Name Freq PRN Reason Stop Dose Admin Albuterol/Ipratropium 1 amp 08/11/19 05:51 08/12/19 23:19 Duoneb - NEB 1 amp RQID PRN Administration SHORTNESS OF BREATH Allopurinol 100 mg 08/11/19 10:00 11/12/19 09:38 Zyloprim - PO 100 mg DAILY ARA Administration Aspirin 81 mg 08/11/19 10:00 08/14/19 09:38 Asa - PO 81 mg DAILY ARA Administration Budesonide/Formoterol Fumarate 2 puff 08/11/19 10:00 08/13/19 22:38 Symbicort 80/4.5mcg - IH 2 puff BID ARA Administration Calcium Carbonate 650 mg 08/11/19 10:00 08/13/19 09:41 Calcium Carbonate - PO 650 mg DAILY ARA Administration Carvedilol 25 mg 08/11/19 10:00 08/14/19 09:38 Coreg - PO 25 mg BID ARA Administration Cholecalciferol 1,000 unit 08/11/19 10:00 08/14/19 09:38 Vitamin D3 - PO 1,000 unit DAILY ARA Administration Donepezil HCl 10 mg 08/11/19 22:00 08/13/19 22:37 Aricept - PO 10 mg HS ARA Administration Ferrous Sulfate 325 mg 08/11/19 10:00 08/14/19 09:38 Feosol - PO 325 mg BID ARA Administration Furosemide 40 mg 08/15/19 10:00 Lasix Injection - IVPUSH DAILY [facility] Heparin Sodium (Porcine) 5,000 unit 08/11/19 06:00 08/14/19 06:14 Heparin - SQ 5,000 unit TID ARA Administration Nifedipine 90 mg 08/11/19 10:00 08/14/19 09:41 Procardia Xl - PO 90 mg DAILY ARA Administration Valsartan 80 mg 08/13/19 11:00 08/14/19 09:38 Diovan - PO 80 mg DAILY ARA Administration ASSESSMENT/PLAN: 68 y.o. F PMH asthma/COPD, HFpEF(LVEF 55%, 07/17/19), CAD(RCA [employer]), normal stress test(08/09/19), HTN, HLD, dementia presenting for SOB and chest tightness that did not improve with home breathing treatment. Admitted for CHFe. At [facility] , pt found to be hypoxic w/ ABG showing pO2 62.6, saturating to a reported 86% w / ambulation. BNP ~2440--> rpt 3205. CXR showing pulmonary congestion. Given albuterol, lasix, solumedrol. Having intermittent SOB which prompted ventimask. Now improved, on 2L NC then RA. Was administered pRBC dt to thought that SOB was 2/2 chronic anemia. BLE duplex done dt concern for LLE larger than RLE, no DVT on read. #Acute HFpEF exacerbation >BNP(08/11/19) ~2440.8 >BNP(08/13/19) ~3205 >troponin 0.04, 0.03 >Echo(07/17/19): LVEF 55%, mild LVH, LA dilation >Stress Test(08/09/19): normal -Lasix 40mg IVP x1 --> Lasix 40mg IVP BID, given additional Lasix 20mg IV on 08/21 -Solumedrol IV 125mg x1 -- dc'd -Is & Os -Daily weights: 122.4kg at admission --> 124.2kg -Cardio consulted (Dr. Rosado, Dr Christiansen) --cw IV lasix, pulm tx, carvedilol + ASA, BP control --started valsartan[DIOVAN] 80mg QD --Consider R&LHc once euvolemic given recurrent HFpEF presentations, outpatient vs Wed transfer if patient amenable # LLE larger than RLE > BLE duplex(08/13/19): neg for DVT - continue to monitor #SOB 2/2 to HFrEF --resolving, now on RA >CXR(08/11/19): pulmon congestion >CXR(08/13/19): pulm congestion, slightly improved >ABG(07/17/19): 7.44/38.1/62.6/25.1/90.8/1.4 on RA - supplemental O2 PRN if O2 <92% - Pulm(Ghosh) consult: -- BD -- defer steroids at this time -- outpt PFT, NPSG #MARISOL --likely 2/2 to diuresis - wean lasix once euvolemic - trend Cr #chronic microcytic anemia > Hgb(baseline ~8-9): 8.7 > colonoscopy(07/23/19): rectosigmoid polyps, sigmoid diverticulosis, mid diverticulosis throughout rest of colon #CPOD -duonebs PRN -cw home budesonide/Formeterol -supplemental O2 PRN -will assess Pre and Post O2 prior to discharge #HTN -home meds: carvedilol 25mg QD, Nifedeipine 90mg QD -valsartan[DIOVAN] --as per Cardio #Dementia -C/w donepezil #FEN -trend lytes, replete PRN -sodium controlled diet #PPX DVT: SCDS, SQHep BID Visit type - Emergency Visit Emergency Visit: No - New Patient This patient is new to me today: No - Critical Care Critical Care patient: No ATTENDING PHYSICIAN STATEMENT I saw and evaluated the patient. I reviewed the resident's note and discussed the case with the resident. I agree with the resident's findings and plan as documented. SUBJECTIVE: OBJECTIVE: ASSESSMENT AND PLAN:
--- NOTE | 2019-08-14 16:33 | PN ---
Teaching Attending Note Name of Resident: Matt Hall ATTENDING PHYSICIAN STATEMENT I saw and evaluated the patient. I reviewed the resident's note and discussed the case with the resident. I agree with the resident's findings and plan as documented with exceptions below. SUBJECTIVE: Patient seen and examined, breathing improved, no events overnight. OBJECTIVE: Vital Signs Period Temp Pulse Resp BP Sys/Christensen Pulse Ox Last 24 Hr 97.8 F-98.7 F 58-79 13-19 103-132/35-88 95-96 Intake & Output 08/11/19 08/12/19 08/13/19 08/14/19 23:59 23:59 23:59 23:59 Intake Total 740 1210 440 100 Balance 740 1210 440 100 Weight 270 lb 274 lb 9.6 oz 274 lb 0.553 oz 274 lb General: sitting in chair, no acute distress Neck: soft, supple Chest: improved fine bibasilar rales Abdomen: soft, obese, NT extremities; some improvement in pedal edema Home Medications Medication Instructions Recorded Allopurinol [Zyloprim -] 100 mg PO DAILY 09/10/18 Donepezil HCl 10 mg PO HS 09/10/18 Calcium Carbonate [Calcium] 600 mg PO DAILY 07/17/19 Ergocalciferol (Vitamin D2) 25 mcg PO DAILY 07/17/19 [Vitamin D2] Ferrous Sulfate 325 mg PO BID #60 tablet 07/25/19 Carvedilol 25 mg PO BID 08/08/19 Fluticasone Propion/Salmeterol 1 each IH BID 08/08/19 [Fluticasone-Salmeterol 500-50] Furosemide 40 mg PO DAILY 08/08/19 Nifedipine [Nifedipine ER] 90 mg PO DAILY 08/08/19 Albuterol 0.083% Nebulizer Malorie 1 neb NEB Q4H PRN 08/09/19 [Ventolin 0.083% Nebulizer Soln -] Aspirin [ASA -] 81 mg PO DAILY tab.chew 08/09/19 Active Medications Albuterol/Ipratropium (Duoneb -) 1 amp NEB RQID PRN PRN Reason: SHORTNESS OF BREATH Last Admin: 08/12/19 23:19 Dose: 1 amp Allopurinol (Zyloprim -) 100 mg PO DAILY ARA Last Admin: 08/14/19 09:38 Dose: 100 mg Aspirin (Asa -) 81 mg PO DAILY [facility] Last Admin: 08/14/19 09:38 Dose: 81 mg Budesonide/Formoterol Fumarate (Symbicort 80/4.5mcg -) 2 puff IH BID [facility] Last Admin: 08/14/19 10:30 Dose: 2 puff Calcium Carbonate (Calcium Carbonate -) 650 mg PO DAILY [facility] Last Admin: 08/14/19 11:00 Dose: 650 mg Carvedilol (Coreg -) 25 mg PO BID [facility] Last Admin: 08/14/19 09:38 Dose: 25 mg Cholecalciferol (Vitamin D3 -) 1,000 unit PO DAILY [facility] Last Admin: 08/14/19 09:38 Dose: 1,000 unit Donepezil HCl (Aricept -) 10 mg PO HS [facility] Last Admin: 08/13/19 22:37 Dose: 10 mg Ferrous Sulfate (Feosol -) 325 mg PO BID [facility] Last Admin: 08/14/19 09:38 Dose: 325 mg Furosemide (Lasix Injection -) 40 mg IVPUSH DAILY [facility] Heparin Sodium (Porcine) (Heparin -) 5,000 unit SQ TID [facility] Last Admin: 08/14/19 14:00 Dose: 5,000 unit Nifedipine (Procardia Xl -) 90 mg PO DAILY [facility] Last Admin: 08/14/19 09:41 Dose: 90 mg Valsartan (Diovan -) 80 mg PO DAILY [facility] Last Admin: 08/14/19 09:38 Dose: 80 mg Laboratory Results - last 24 hr 08/14/19 08/14/19 05:30 05:30 WBC 9.6 RBC 3.38 L Hgb 8.7 L Hct 27.0 L MCV 79.8 L MCH 25.6 L MCHC 32.1 RDW 20.1 H Plt Count 272 MPV 9.5 Sodium 138 Potassium 3.7 Chloride 105 Carbon Dioxide 27 Anion Gap 6 L BUN 33.6 H Creatinine 1.5 H Est GFR (CKD-EPI)AfAm 40.49 Est GFR (CKD-EPI)NonAf 34.93 Random Glucose 84 Calcium 9.0 Phosphorus 4.4 Magnesium 2.4 Total Bilirubin 0.6 AST 10 L ALT 11 L Alkaline Phosphatase 93 Total Protein 6.2 L Albumin 2.6 L ASSESSMENT AND PLAN: 68 yof with PMHx of COPD/bronchial asthma, acute on chronic diastolic heart failure (HFpEF), HTN, hypercholesterolemia, CAD h/o AR, [employer]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 Titrate based on BP readings s/p 1 unit of PRBC with appopriate response. PO Fe and outpatient follow up. Monitor h/h. Outpatient sleep study/Pulmonary follow up. Home oxygen needs assessment prior to dc. DVTPPX heparin Dispo for transfer for cardiac cath vs SNF vs home with services +/- oxygen in 24-48 hours if volume status continues to improve. Plan discussed with patient, all questions answered.
[2019-08-14] MEDS: DONEPEZIL HCL 10 MG TABLET (FP) PO SCH (21:27)
[2019-08-15] MEDS: HEPARIN NA (PORCINE) 5,000 UNITS/ML 1ML VIAL SQ SCH ×3 (06:01→21:10)
[2019-08-15 07:51] LABS: HEMATOCRIT 28.4 % (32.4-45.2); HEMOGLOBIN 9.2 GM/dL (10.7-15.3); MCH 25.8 pg (25.7-33.7); MCHC 32.5 g/dl (32.0-36.0); MEAN CELL VOLUME 79.4 fl (80-96); MEAN PLT VOLUME 9.6 fl (7.5-11.1); PLATELET COUNT 309 K/MM3 (134-434); RBC 3.58 M/mm3 (3.60-5.2); RDW 20.4 % (11.6-15.6); WHITE BLOOD COUNT 8.4 K/mm3 (4.0-10.0)
[2019-08-15 08:14] LABS: BLOOD UREA NITROGEN 37.6 mg/dL (7-18); CALCIUM 9.6 mg/dL (8.5-10.1); CREATININE 1.6 mg/dL (0.55-1.3); MAGNESIUM 2.4 mg/dL (1.8-2.4); PHOSPHOROUS 4.8 mg/dL (2.5-4.9); POTASSIUM 4.2 mmol/L (3.5-5.1)
[2019-08-15] MEDS ORDERED: PT OWN MED DRAWER 7, Y5N ONE (09:39)
[2019-08-15] MEDS: CHOLECALCIFEROL (VIT D3) 1,000 UNIT (25 MCG) TABLET PO SCH (09:41)
[2019-08-15] MEDS: CALCIUM CARBONATE 650 MG TABLET PO SCH (09:41)
[2019-08-15] MEDS: FERROUS SO4 325 MG TABLET (FP) PO SCH ×2 (09:41→21:10)
[2019-08-15] MEDS: ASPIRIN 81 MG CHEWABLE TABLETS PO SCH (09:42)
[2019-08-15] MEDS: VALSARTAN 80 MG TABLET (UD) PO SCH (09:42)
[2019-08-15] MEDS: CARVEDILOL 25 MG TABLET (FP) PO SCH ×2 (09:42→21:10)
[2019-08-15] MEDS: NIFEdipine E.R. 90 MG TABLET (FP) PO SCH (09:43)
[2019-08-15] MEDS: BUDESONIDE/FORMETEROL FUMARATE 80/4.5 mcg INHALER IH SCH ×2 (09:43→21:10)
[2019-08-15] MEDS: ALLOPURINOL 100 MG TABLET (FP) PO SCH (09:43)
[2019-08-15] MEDS ORDERED: FUROSEMIDE 40 MG/4 ML INJECTABLE VIAL IVPUSH SCH (10:00)
--- NOTE | 2019-08-15 10:38 | PN ---
Teaching Attending Note Name of Resident: Matt Hall ATTENDING PHYSICIAN STATEMENT I saw and evaluated the patient. I reviewed the resident's note and discussed the case with the resident. I agree with the resident's findings and plan as documented with exceptions below. SUBJECTIVE: Patient seen and examined. breathing improved, no complaints. OBJECTIVE: Vital Signs Period Temp Pulse Resp BP Sys/Christensen Pulse Ox Last 24 Hr 97.8 F-98.2 F 58-79 - 98-138/41-89 95-96 Intake & Output 08/12/19 08/13/19 08/14/19 08/15/19 23:59 23:59 23:59 23:59 Intake Total 1210 440 830 490 Balance 1210 440 830 490 Weight 274 lb 9.6 oz 274 lb 0.553 oz 274 lb 269 lb 9 oz general: sitting in bed, no acute distress neck: soft, supple Chest: minimal basilar rales, improved air entry and exam Abdomen:Soft, obese, NT Extremities: improved pedal edema, MARY wrapping bilateral LE Home Medications Medication Instructions Recorded Allopurinol [Zyloprim -] 100 mg PO DAILY 09/10/18 Donepezil HCl 10 mg PO HS 09/10/18 Calcium Carbonate [Calcium] 600 mg PO DAILY 07/17/19 Ergocalciferol (Vitamin D2) 25 mcg PO DAILY 07/17/19 [Vitamin D2] Ferrous Sulfate 325 mg PO BID #60 tablet 07/25/19 Carvedilol 25 mg PO BID 08/08/19 Fluticasone Propion/Salmeterol 1 each IH BID 08/08/19 [Fluticasone-Salmeterol 500-50] Furosemide 40 mg PO DAILY 08/08/19 Nifedipine [Nifedipine ER] 90 mg PO DAILY 08/08/19 Albuterol 0.083% Nebulizer Malorie 1 neb NEB Q4H PRN 08/09/19 [Ventolin 0.083% Nebulizer Soln -] Aspirin [ASA -] 81 mg PO DAILY tab.chew 08/09/19 Active Medications Albuterol/Ipratropium (Duoneb -) 1 amp NEB RQID PRN PRN Reason: SHORTNESS OF BREATH Last Admin: 08/12/19 23:19 Dose: 1 amp Allopurinol (Zyloprim -) 100 mg PO DAILY ARA Last Admin: 08/15/19 09:43 Dose: 100 mg Aspirin (Asa -) 81 mg PO DAILY [facility] Last Admin: 08/15/19 09:42 Dose: 81 mg Budesonide/Formoterol Fumarate (Symbicort 80/4.5mcg -) 2 puff IH BID [facility] Last Admin: 08/15/19 09:43 Dose: 2 puff Calcium Carbonate (Calcium Carbonate -) 650 mg PO DAILY [facility] Last Admin: 08/15/19 09:41 Dose: 650 mg Carvedilol (Coreg -) 25 mg PO BID [facility] Last Admin: 08/15/19 09:42 Dose: 25 mg Cholecalciferol (Vitamin D3 -) 1,000 unit PO DAILY [facility] Last Admin: 08/15/19 09:41 Dose: 1,000 unit Donepezil HCl (Aricept -) 10 mg PO HS [facility] Last Admin: 08/14/19 21:27 Dose: 10 mg Ferrous Sulfate (Feosol -) 325 mg PO BID [facility] Last Admin: 08/15/19 09:41 Dose: 325 mg Furosemide (Lasix -) 40 mg PO DAILY [facility] Heparin Sodium (Porcine) (Heparin -) 5,000 unit SQ TID [facility] Last Admin: 08/15/19 06:01 Dose: 5,000 unit Nifedipine (Procardia Xl -) 90 mg PO DAILY [facility] Last Admin: 08/15/19 09:43 Dose: 90 mg Valsartan (Diovan -) 80 mg PO DAILY [facility] Last Admin: 08/15/19 09:42 Dose: 80 mg Laboratory Results - last 24 hr 08/15/19 08/15/19 06:25 06:25 WBC 8.4 RBC 3.58 L Hgb 9.2 L Hct 28.4 L MCV 79.4 L MCH 25.8 MCHC 32.5 RDW 20.4 H Plt Count 309 MPV 9.6 Sodium 139 Potassium 4.2 Chloride 105 Carbon Dioxide 29 Anion Gap 5 L BUN 37.6 H Creatinine 1.6 H Est GFR (CKD-EPI)AfAm 37.45 Est GFR (CKD-EPI)NonAf 32.31 Random Glucose 102 Calcium 9.6 Phosphorus 4.8 Magnesium 2.4 ASSESSMENT AND PLAN: 68 yof with PMHx of COPD/bronchial asthma, acute on chronic diastolic heart failure (HFpEF), HTN, hypercholesterolemia, CAD h/o PA, 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 Change lasix to 40 mg PO daily Will need to hold ARB if cr continues to rise. Monitor volume status. Continue ASA/statin/coreg/nifedipine for now. Titrate based on BP readings s/p 1 unit of PRBC with appopriate response. PO Fe and outpatient follow up. Monitor h/h. Outpatient sleep study/Pulmonary follow up. Home oxygen needs assessment prior to dc. DVTPPX heparin Dispo for transfer for cardiac cath vs SNF vs home with services +/- oxygen in 24 hours pending patient/family wishes and cardiology input. Plan discussed with patient, all questions answered.
--- NOTE | 2019-08-15 11:39 | PN ---
Physical Exam: SUBJECTIVE: Patient seen and examined NAEON. Tele showing occasional nonsustained PVCs, rare paired PVCs Slept throughout night w/o issues. Denies dyspnea. Had a nonbloody BM, not black , not sticky OBJECTIVE: Vital Signs Period Temp Pulse Resp BP Sys/Christensen Pulse Ox Last 24 Hr 97.8 F-98.2 F 58-79 13-19 98-138/41-89 95-96 GENERAL: The patient is awake, alert. NAD HEAD: NC/AT. EYES: sclera anicteric, mild conjunctival pallor. ENT: Ears normal, nares patent, moist mucous membranes. Poor dentition NECK: Trachea midline, full range of motion, supple. LUNGS: mild b/l fine crackles at lung bases, no accessory muscle use. Breathing comfortably on RA. Speaking in full sentences HEART: Regular rate and rhythm, S1, S2 without murmur, rub or gallop. ABDOMEN: Soft, nontender, nondistended, no guarding, no rebound. EXTREMITIES: 2+ pulses of DPs, warm, well-perfused. 1+ pitting edema to BLE, up to shins. Compressive MARY wraps in place NEUROLOGICAL: Normal speech PSYCH: Normal mood, normal affect. SKIN: Warm, dry, normal turgor, no rashes or lesions noted Laboratory Results - last 24 hr 08/12/19 08/15/19 08/15/19 08:50 06:25 06:25 WBC 8.4 RBC 3.58 L Hgb 9.2 L Hct 28.4 L MCV 79.4 L MCH 25.8 MCHC 32.5 RDW 20.4 H Plt Count 309 MPV 9.6 Sodium 139 Potassium 4.2 Chloride 105 Carbon Dioxide 29 Anion Gap 5 L BUN 37.6 H Creatinine 1.6 H Est GFR (CKD-EPI)AfAm 37.45 Est GFR (CKD-EPI)NonAf 32.31 Random Glucose 102 Calcium 9.6 Phosphorus 4.8 Magnesium 2.4 Blood Type A POSITIVE Antibody Screen Negative Crossmatch See Detail Active Medications Generic Name Dose Route Start Last Admin Trade Name Freq PRN Reason Stop Dose Admin Albuterol/Ipratropium 1 amp 08/11/19 05:51 08/12/19 23:19 Duoneb - NEB 1 amp RQID PRN Administration SHORTNESS OF BREATH Allopurinol 100 mg 08/11/19 10:00 08/15/19 09:43 Zyloprim - PO 100 mg DAILY ARA Administration Aspirin 81 mg 08/11/19 10:00 08/15/19 09:42 Asa - PO 81 mg DAILY ARA Administration Budesonide/Formoterol Fumarate 2 puff 08/11/19 10:00 08/15/19 09:43 Symbicort 80/4.5mcg - IH 2 puff BID ARA Administration Calcium Carbonate 650 mg 08/11/19 10:00 08/15/19 09:41 Calcium Carbonate - PO 650 mg DAILY ARA Administration Carvedilol 25 mg 08/11/19 10:00 08/15/19 09:42 Coreg - PO 25 mg BID ARA Administration Cholecalciferol 1,000 unit 08/11/19 10:00 08/15/19 09:41 Vitamin D3 - PO 1,000 unit DAILY ARA Administration Donepezil HCl 10 mg 08/11/19 22:00 08/14/19 21:27 Aricept - PO 10 mg HS ARA Administration Ferrous Sulfate 325 mg 08/11/19 10:00 08/15/19 09:41 Feosol - PO 325 mg BID ARA Administration Furosemide 40 mg 08/16/19 10:00 Lasix - PO DAILY ARA Heparin Sodium (Porcine) 5,000 unit 08/11/19 06:00 08/15/19 06:01 Heparin - SQ 5,000 unit TID ARA Administration Nifedipine 90 mg 08/11/19 10:00 08/15/19 09:43 Procardia Xl - PO 90 mg DAILY ARA Administration Valsartan 80 mg 08/13/19 11:00 08/15/19 09:42 Diovan - PO 80 mg DAILY ARA Administration ASSESSMENT/PLAN: 68 y.o. 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 Admitted for CHFe. At [facility] , pt found to be hypoxic w/ ABG showing pO2 62.6, saturating to a reported 86% w / ambulation. BNP ~2440--> rpt 3205. CXR showing pulmonary congestion. Given albuterol, lasix, solumedrol. Having intermittent SOB which prompted ventimask. Now improved, on 2L NC then RA. Was administered pRBC dt to thought that SOB was 2/2 chronic anemia. BLE duplex done dt concern for LLE larger than RLE, no DVT on read. #Acute HFpEF exacerbation >BNP(08/11/19) ~2440.8 >BNP(08/13/19) ~3205 >troponin 0.04, 0.03 >Echo(07/17/19): LVEF 55%, mild LVH, LA dilation >Stress Test(08/09/19): normal -Lasix 40mg IVP x1 --> Lasix 40mg IVP BID, given additional Lasix 20mg IV on 08/21 --> Lasix 40mg QD -Solumedrol IV 125mg x1 -- dc'd -Is & Os -Daily weights: 122.4kg(admission)--> 124kg --> 122.2kg -Cardio consulted (Dr. Rosado, Dr Christiansen) --cw IV lasix, pulm tx, carvedilol + ASA, BP control --started valsartan[DIOVAN] 80mg QD --Consider R&LHc once euvolemic given recurrent HFpEF presentations, outpatient vs Wed transfer if patient amenable # LLE larger than RLE > BLE duplex(08/13/19): neg for DVT - continue to monitor #SOB 2/2 to HFrEF --resolving, now on RA >CXR(08/11/19): pulmon congestion >CXR(08/13/19): pulm congestion, slightly improved >ABG(07/17/19): 7.44/38.1/62.6/25.1/90.8/1.4 on RA - supplemental O2 PRN if O2 <92% - RT: pre- and post- --pending - Pulm(Augie) consult: -- BD -- defer steroids at this time -- outpt PFT, NPSG #MARISOL --likely 2/2 to diuresis > baseline Cr 1.1 --> 1.2, 1.3, 1.2, 1.5, 1.6 - wean lasix once euvolemic - trend Cr #chronic microcytic anemia > Hgb(baseline ~8-9): 8.7 > colonoscopy(10/21/19): rectosigmoid polyps, sigmoid diverticulosis, mid diverticulosis throughout rest of colon #CPOD -duonebs PRN -cw home budesonide/Formeterol -supplemental O2 PRN -will assess Pre and Post O2 prior to discharge #HTN -home meds: carvedilol 25mg QD, Nifedeipine 90mg QD -valsartan[DIOVAN] --as per Cardio #Dementia -C/w donepezil #FEN -trend lytes, replete PRN -sodium controlled diet #PPX DVT: SCDS, SQHep TID Visit type - Emergency Visit Emergency Visit: No - New Patient This patient is new to me today: No - Critical Care Critical Care patient: No ATTENDING PHYSICIAN STATEMENT I saw and evaluated the patient. I reviewed the resident's note and discussed the case with the resident. I agree with the resident's findings and plan as documented. SUBJECTIVE: OBJECTIVE: ASSESSMENT AND PLAN:
--- NOTE | 2019-08-15 12:48 | PN ---
Progress Note (short form) - Note Progress Note: PULMONARY Denies shortness of breath, cough or chest pain. Vital Signs Period Temp Pulse Resp BP Sys/Christensen Pulse Ox Last 24 Hr 97.9 F-98.2 F 58-79 - 98-138/41-89 95-96 Intake & Output 08/12/19 08/13/19 08/14/19 08/15/19 23:59 23:59 23:59 23:59 Intake Total 1210 440 830 490 Balance 1210 440 830 490 Weight 124.556 kg 124.3 kg 124.284 kg 122.271 kg Gen: NAD at rest Heart: RRR Lung: decreased breath sounds at the bases Abd: soft, nontender Ext: + edema CBC, BMP 08/15/19 06:25 08/15/19 06:25 Active Medications Albuterol/Ipratropium (Duoneb -) 1 amp NEB RQID PRN PRN Reason: SHORTNESS OF BREATH Last Admin: 08/12/19 23:19 Dose: 1 amp Allopurinol (Zyloprim -) 100 mg PO DAILY [facility] Last Admin: 08/15/19 09:43 Dose: 100 mg Aspirin (Asa -) 81 mg PO DAILY [facility] Last Admin: 08/15/19 09:42 Dose: 81 mg Budesonide/Formoterol Fumarate (Symbicort 80/4.5mcg -) 2 puff IH BID [facility] Last Admin: 08/15/19 09:43 Dose: 2 puff Calcium Carbonate (Calcium Carbonate -) 650 mg PO DAILY [facility] Last Admin: 08/15/19 09:41 Dose: 650 mg Carvedilol (Coreg -) 25 mg PO BID [facility] Last Admin: 08/15/19 09:42 Dose: 25 mg Cholecalciferol (Vitamin D3 -) 1,000 unit PO DAILY [facility] Last Admin: 08/15/19 09:41 Dose: 1,000 unit Donepezil HCl (Aricept -) 10 mg PO HS [facility] Last Admin: 08/14/19 21:27 Dose: 10 mg Ferrous Sulfate (Feosol -) 325 mg PO BID [facility] Last Admin: 08/15/19 09:41 Dose: 325 mg Furosemide (Lasix -) 40 mg PO DAILY [facility] Heparin Sodium (Porcine) (Heparin -) 5,000 unit SQ TID [facility] Last Admin: 08/15/19 06:01 Dose: 5,000 unit Nifedipine (Procardia Xl -) 90 mg PO DAILY [facility] Last Admin: 08/15/19 09:43 Dose: 90 mg Valsartan (Diovan -) 80 mg PO DAILY [facility] Last Admin: 08/15/19 09:42 Dose: 80 mg A/P Acute Hypoxic Respiratory Failure improving Acute on Chronic Diastolic Heart Failure CAD COPD HTN Hyperlipidemia Dementia Anemia Likely Obstructive Sleep Apnea h/o CVA CKD - continue lasix - monitor urine output, creatinine - daily weights - O2 to keep SpO2 >90% - inhaled bronchodilators - can defer systemic steroids at this time - outpt PFTs and NPSG - cardiology considering catheterization - DVT prophylaxis Problem List - Problems (1) Acute on chronic diastolic heart failure Code(s): I50.33 - ACUTE ON CHRONIC DIASTOLIC (CONGESTIVE) HEART FAILURE
--- NOTE | 2019-08-15 12:52 | PN ---
Progress Note, Physician History of Present Illness: Denies shortness of breath, cough or chest pain. OOB to chair. - Current Medication List Current Medications: Active Medications Albuterol/Ipratropium (Duoneb -) 1 amp NEB RQID PRN PRN Reason: SHORTNESS OF BREATH Last Admin: 08/12/19 23:19 Dose: 1 amp Allopurinol (Zyloprim -) 100 mg PO DAILY [facility] Last Admin: 08/15/19 09:43 Dose: 100 mg Aspirin (Asa -) 81 mg PO DAILY [facility] Last Admin: 08/15/19 09:42 Dose: 81 mg Budesonide/Formoterol Fumarate (Symbicort 80/4.5mcg -) 2 puff IH BID [facility] Last Admin: 08/15/19 09:43 Dose: 2 puff Calcium Carbonate (Calcium Carbonate -) 650 mg PO DAILY [facility] Last Admin: 08/15/19 09:41 Dose: 650 mg Carvedilol (Coreg -) 25 mg PO BID [facility] Last Admin: 08/15/19 09:42 Dose: 25 mg Cholecalciferol (Vitamin D3 -) 1,000 unit PO DAILY [facility] Last Admin: 08/15/19 09:41 Dose: 1,000 unit Donepezil HCl (Aricept -) 10 mg PO HS [facility] Last Admin: 08/14/19 21:27 Dose: 10 mg Ferrous Sulfate (Feosol -) 325 mg PO BID [facility] Last Admin: 08/15/19 09:41 Dose: 325 mg Furosemide (Lasix -) 40 mg PO DAILY [facility] Heparin Sodium (Porcine) (Heparin -) 5,000 unit SQ TID [facility] Last Admin: 08/15/19 06:01 Dose: 5,000 unit Nifedipine (Procardia Xl -) 90 mg PO DAILY [facility] Last Admin: 08/15/19 09:43 Dose: 90 mg Valsartan (Diovan -) 80 mg PO DAILY [facility] Last Admin: 08/15/19 09:42 Dose: 80 mg - Objective Vital Signs: Vital Signs Temperature 97.9 F 08/15/19 09:48 Pulse Rate 66 08/15/19 09:48 Respiratory Rate 16 08/15/19 09:48 Blood Pressure 103/41 L 08/15/19 09:48 O2 Sat by Pulse Oximetry (%) 95 08/15/19 08:57 Constitutional: Yes: No Distress, Calm Neck: Yes: Supple Cardiovascular: Yes: Regular Rate and Rhythm Respiratory: Yes: Regular, CTA Bilaterally Gastrointestinal: Yes: Normal Bowel Sounds, Soft Edema: Yes Edema: LLE: Trace, RLE: Trace Labs: CBC, BMP 08/15/19 06:25 08/15/19 06:25 Problem List - Problems (1) Acute on chronic diastolic heart failure Code(s): I50.33 - ACUTE ON CHRONIC DIASTOLIC (CONGESTIVE) HEART FAILURE (2) Coronary artery disease Code(s): I25.10 - ATHSCL HEART DISEASE OF [place] CORONARY ARTERY W/O ANG PCTRS Qualifiers: Coronary Disease-Associated Artery/Lesion type: [place] artery [place] vs. transplanted heart: [place] heart Associated angina: without angina Qualified Code(s): I25.10 - Atherosclerotic heart disease of [place] coronary artery without angina pectoris (3) Decompensated heart failure Code(s): I50.9 - HEART FAILURE, UNSPECIFIED (4) HTN (hypertension) Code(s): I10 - ESSENTIAL (PRIMARY) HYPERTENSION Qualifiers: Hypertension type: unspecified Qualified Code(s): I10 - Essential (primary ) hypertension (5) Hypercholesteremia Code(s): E78.00 - PURE HYPERCHOLESTEROLEMIA, UNSPECIFIED (6) Morbid obesity Code(s): E66.01 - MORBID (SEVERE) OBESITY DUE TO EXCESS CALORIES (7) Old inferolateral myocardial infarction Code(s): I25.2 - OLD MYOCARDIAL INFARCTION (8) Respiratory failure with hypoxia Code(s): J96.91 - RESPIRATORY FAILURE, UNSPECIFIED WITH HYPOXIA Qualifiers: Chronicity: acute on chronic Qualified Code(s): J96.21 - Acute and chronic respiratory failure with hypoxia (9) Shortness of breath Code(s): R06.02 - SHORTNESS OF BREATH Assessment/Plan 08/09/2019 Lexiscan Myoview: No ischemia, LVEF 60% 07/2019 Echo [facility]: Normal LV size and fxn inferolateral and basal inferior RWMA 2012 LH: FUEL RETROFITTING TECHNICIAN RCA 1. Acute on chronic hypoxemic respiratory failure due to recurrent acute on chronic LV diastolic failure (HFpEF) 2. CAD s/p [place] with FUEL RETROFITTING TECHNICIAN of RCA 3. COPD 4. HTN 5. Hypercholesterolemia 6. Cerebrovascular disease 7. History of diverticulitis/diverticulosis and colon polyps 8. 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 Organic brain/dementia 10. CKD 11. OSAS PLAN: 1. Continue Carvedilol 25 mg BID, ASA 81 mg QD, Procardia XL 90 mg QD, Lipitor 80 mg QHS and Diovan 80 mg QD (uptitrate as tolerated) 2. Resumed oral diuresis with monitoring renal function and electrolytes 3. Bronchodilator and O2 as needed 4. Sleep study 5. DVT prophylaxis and continue to wrap legs 6. Consider R & L heart catheterization once euvolemic as outpatient 7. D/c planning, january f/u with us in office if patient chooses, otherwise with Dr. Rayo at [place]
[2019-08-15] MEDS: DONEPEZIL HCL 10 MG TABLET (FP) PO SCH (21:10)
[2019-08-16] MEDS: HEPARIN NA (PORCINE) 5,000 UNITS/ML 1ML VIAL SQ SCH ×2 (06:14→14:21)
[2019-08-16 07:19] LABS: HEMATOCRIT 29.5 % (32.4-45.2); HEMOGLOBIN 9.2 GM/dL (10.7-15.3); MCH 25.4 pg (25.7-33.7); MEAN CELL VOLUME 81.8 fl (80-96); PLATELET COUNT 306 K/MM3 (134-434); RBC 3.61 M/mm3 (3.60-5.2); RDW 20.6 % (11.6-15.6); WHITE BLOOD COUNT 6.9 K/mm3 (4.0-10.0)
[2019-08-16 07:44] LABS: BLOOD UREA NITROGEN 35.3 mg/dL (7-18); CALCIUM 9.3 mg/dL (8.5-10.1); CREATININE 1.6 mg/dL (0.55-1.3); MAGNESIUM 2.7 mg/dL (1.8-2.4); PHOSPHOROUS 4.6 mg/dL (2.5-4.9); POTASSIUM 4.4 mmol/L (3.5-5.1)
[2019-08-16] MEDS ORDERED: PT OWN MED DRAWER 7, Y5N ONE (09:16)
[2019-08-16] MEDS: VALSARTAN 80 MG TABLET (UD) PO SCH (09:52)
[2019-08-16] MEDS: CARVEDILOL 25 MG TABLET (FP) PO SCH (09:52)
[2019-08-16] MEDS: FERROUS SO4 325 MG TABLET (FP) PO SCH (09:52)
[2019-08-16] MEDS: ALLOPURINOL 100 MG TABLET (FP) PO SCH (09:52)
[2019-08-16] MEDS: ASPIRIN 81 MG CHEWABLE TABLETS PO SCH (09:53)
[2019-08-16] MEDS: BUDESONIDE/FORMETEROL FUMARATE 80/4.5 mcg INHALER IH SCH (09:53)
[2019-08-16] MEDS: CALCIUM CARBONATE 650 MG TABLET PO SCH (09:53)
[2019-08-16] MEDS: CHOLECALCIFEROL (VIT D3) 1,000 UNIT (25 MCG) TABLET PO SCH (09:53)
[2019-08-16] MEDS: NIFEdipine E.R. 90 MG TABLET (FP) PO SCH (09:53)
--- NOTE | 2019-08-16 09:55 | PN ---
Progress Note, Physician History of Present Illness: Denies shortness of breath, cough or chest pain. OOB to chair. - Current Medication List Current Medications: Active Medications Allopurinol (Zyloprim -) 100 mg PO DAILY [facility] Last Admin: 08/16/19 09:52 Dose: 100 mg Aspirin (Asa -) 81 mg PO DAILY [facility] Last Admin: 08/16/19 09:53 Dose: 81 mg Budesonide/Formoterol Fumarate (Symbicort 80/4.5mcg -) 2 puff IH BID [facility] Last Admin: 08/16/19 09:53 Dose: 2 puff Calcium Carbonate (Calcium Carbonate -) 650 mg PO DAILY [facility] Last Admin: 08/16/19 09:53 Dose: 650 mg Carvedilol (Coreg -) 25 mg PO BID [facility] Last Admin: 08/16/19 09:52 Dose: 25 mg Cholecalciferol (Vitamin D3 -) 1,000 unit PO DAILY [facility] Last Admin: 08/16/19 09:53 Dose: 1,000 unit Donepezil HCl (Aricept -) 10 mg PO HS [facility] Last Admin: 08/15/19 21:10 Dose: 10 mg Ferrous Sulfate (Feosol -) 325 mg PO BID [facility] Last Admin: 08/16/19 09:52 Dose: 325 mg Furosemide (Lasix -) 40 mg PO DAILY [facility] Last Admin: 08/16/19 09:52 Dose: 40 mg Heparin Sodium (Porcine) (Heparin -) 5,000 unit SQ TID [facility] Last Admin: 08/16/19 06:14 Dose: 5,000 unit Nifedipine (Procardia Xl -) 90 mg PO DAILY [facility] Last Admin: 08/16/19 09:53 Dose: 90 mg Valsartan (Diovan -) 80 mg PO DAILY [facility] Last Admin: 08/16/19 09:52 Dose: 80 mg - Objective Vital Signs: Vital Signs Temperature 98 F 08/16/19 06:00 Pulse Rate 63 08/16/19 06:00 Respiratory Rate 16 08/16/19 06:00 Blood Pressure 118/41 L 08/16/19 06:00 O2 Sat by Pulse Oximetry (%) 93 L 08/15/19 20:14 Constitutional: Yes: No Distress, Calm Neck: Yes: Supple Cardiovascular: Yes: Regular Rate and Rhythm Respiratory: Yes: Regular, Diminished, On Nasal O2 Gastrointestinal: Yes: Normal Bowel Sounds, Soft Edema: Yes Edema: LLE: Trace, RLE: Trace Labs: CBC, BMP 08/16/19 05:43 08/16/19 05:43 Problem List - Problems (1) Acute on chronic diastolic heart failure Code(s): I50.33 - ACUTE ON CHRONIC DIASTOLIC (CONGESTIVE) HEART FAILURE (2) Coronary artery disease Code(s): I25.10 - ATHSCL HEART DISEASE OF [place] CORONARY ARTERY W/O ANG PCTRS Qualifiers: Coronary Disease-Associated Artery/Lesion type: [place] artery [place] vs. transplanted heart: ruby heart Associated angina: without angina Qualified Code(s): I25.10 - Atherosclerotic heart disease of [place] coronary artery without angina pectoris (3) Decompensated heart failure Code(s): I50.9 - HEART FAILURE, UNSPECIFIED (4) HTN (hypertension) Code(s): I10 - ESSENTIAL (PRIMARY) HYPERTENSION Qualifiers: Hypertension type: unspecified Qualified Code(s): I10 - Essential (primary ) hypertension (5) Hypercholesteremia Code(s): E78.00 - PURE HYPERCHOLESTEROLEMIA, UNSPECIFIED (6) Morbid obesity Code(s): E66.01 - MORBID (SEVERE) OBESITY DUE TO EXCESS CALORIES (7) Old inferolateral myocardial infarction Code(s): I25.2 - OLD MYOCARDIAL INFARCTION (8) Respiratory failure with hypoxia Code(s): J96.91 - RESPIRATORY FAILURE, UNSPECIFIED WITH HYPOXIA Qualifiers: Chronicity: acute on chronic Qualified Code(s): J96.21 - Acute and chronic respiratory failure with hypoxia (9) Shortness of breath Code(s): R06.02 - SHORTNESS OF BREATH Assessment/Plan 08/09/2019 Lexiscan Myoview: No ischemia, LVEF 60% 07/2019 Echo [facility]: Normal LV size and fxn inferolateral and basal inferior RWMA 2012 LH: CHIEF HUMAN RESOURCES OFFICER RCA 1. Acute on chronic hypoxemic respiratory failure due to recurrent acute on chronic LV diastolic failure (HFpEF) 2. CAD s/p [place] with CHIEF HUMAN RESOURCES OFFICER of RCA 3. COPD 4. HTN 5. Hypercholesterolemia 6. Cerebrovascular disease 7. History of diverticulitis/diverticulosis and colon polyps 8. 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 Organic brain/dementia 10. CKD 11. OSAS PLAN: 1. Continue Carvedilol 25 mg BID, ASA 81 mg QD, Procardia XL 90 mg QD, Lipitor 80 mg QHS and Diovan 80 mg QD (uptitrate as tolerated) 2. Resumed oral diuresis with monitoring renal function and electrolytes 3. Bronchodilator and O2 to keep SpO2 >90% as needed 4. Sleep study and PFTs as outpatient 5. DVT prophylaxis and continue to wrap legs 6. Consider R & L heart catheterization once euvolemic as outpatient 7. D/c planning, january/u with us in office if patient chooses, otherwise with Dr. Rayo at [place]
[2019-08-16] MEDS ORDERED: FUROSEMIDE 40 MG TABLET (FP) PO SCH (10:00)
--- NOTE | 2019-08-16 12:06 | PN ---
Progress Note (short form) - Note Progress Note: PULMONARY Denies shortness of breath, cough or chest pain. Vital Signs Period Temp Pulse Resp BP Sys/Christensen Pulse Ox Last 24 Hr 97.4 F-98.6 F 57-88 12-18 93-136/41-76 93-96 Intake & Output 08/13/19 08/14/19 08/15/19 08/16/19 23:59 23:59 23:59 23:59 Intake Total 440 830 950 Balance 440 830 950 Weight 124.3 kg 124.284 kg 122.271 kg Gen: NAD at rest Heart: RRR Lung: decreased breath sounds at the bases Abd: soft, nontender Ext: + edema CBC, BMP 08/16/19 05:43 08/16/19 05:43 Active Medications Allopurinol (Zyloprim -) 100 mg PO DAILY [facility] Last Admin: 08/16/19 09:52 Dose: 100 mg Aspirin (Asa -) 81 mg PO DAILY [facility] Last Admin: 08/16/19 09:53 Dose: 81 mg Budesonide/Formoterol Fumarate (Symbicort 80/4.5mcg -) 2 puff IH BID [facility] Last Admin: 08/16/19 09:53 Dose: 2 puff Calcium Carbonate (Calcium Carbonate -) 650 mg PO DAILY [facility] Last Admin: 08/16/19 09:53 Dose: 650 mg Carvedilol (Coreg -) 25 mg PO BID [facility] Last Admin: 08/16/19 09:52 Dose: 25 mg Cholecalciferol (Vitamin D3 -) 1,000 unit PO DAILY [facility] Last Admin: 08/16/19 09:53 Dose: 1,000 unit Donepezil HCl (Aricept -) 10 mg PO HS [facility] Last Admin: 08/15/19 21:10 Dose: 10 mg Ferrous Sulfate (Feosol -) 325 mg PO BID [facility] Last Admin: 08/16/19 09:52 Dose: 325 mg Furosemide (Lasix -) 40 mg PO DAILY [facility] Last Admin: 08/16/19 09:52 Dose: 40 mg Heparin Sodium (Porcine) (Heparin -) 5,000 unit SQ TID [facility] Last Admin: 08/16/19 06:14 Dose: 5,000 unit Nifedipine (Procardia Xl -) 90 mg PO DAILY [facility] Last Admin: 08/16/19 09:53 Dose: 90 mg Valsartan (Diovan -) 80 mg PO DAILY [facility] Last Admin: 08/16/19 09:52 Dose: 80 mg A/P Acute Hypoxic Respiratory Failure improving Acute on Chronic Diastolic Heart Failure CAD COPD HTN Hyperlipidemia Dementia Anemia Likely Obstructive Sleep Apnea h/o CVA CKD - continue lasix - monitor urine output, creatinine - daily weights - O2 to keep SpO2 >90% - inhaled bronchodilators - can defer systemic steroids at this time - outpt PFTs and NPSG - DVT prophylaxis - d/c planning in progress Problem List - Problems (1) Acute on chronic diastolic heart failure Code(s): I50.33 - ACUTE ON CHRONIC DIASTOLIC (CONGESTIVE) HEART FAILURE
--- NOTE | 2019-08-16 14:16 | PN ---
Teaching Attending Note Name of Resident: Matt Hall ATTENDING PHYSICIAN STATEMENT I saw and evaluated the patient. I reviewed the resident's note and discussed the case with the resident. I agree with the resident's findings and plan as documented with exceptions below. SUBJECTIVE: Patient seen and examined, breathing improved, no concerns. OBJECTIVE: Vital Signs Period Temp Pulse Resp BP Sys/Christensen Pulse Ox Last 24 Hr 97.4 F-98.6 F 57-88 12-18 97-136/41-69 93-96 Intake & Output 08/13/19 08/14/19 08/15/19 08/16/19 23:59 23:59 23:59 23:59 Intake Total 440 830 950 Balance 440 830 950 Weight 274 lb 0.553 oz 274 lb 269 lb 9 oz General: sitting in chair, no acute distress Neck: soft, supple, no JVD Chest: occasional basilar fine rales, improved air entry, improved exam Abdomen:soft, obese, NT Extremities: improved pedal edema, MARY wrapping Home Medications Medication Instructions Recorded Allopurinol [Zyloprim -] 100 mg PO DAILY 09/10/18 Donepezil HCl 10 mg PO HS 09/10/18 Calcium Carbonate [Calcium] 600 mg PO DAILY 07/17/19 Ergocalciferol (Vitamin D2) 25 mcg PO DAILY 07/17/19 [Vitamin D2] Ferrous Sulfate 325 mg PO BID #60 tablet 07/25/19 Carvedilol 25 mg PO BID 08/08/19 Fluticasone Propion/Salmeterol 1 each IH BID 08/08/19 [Fluticasone-Salmeterol 500-50] Furosemide 40 mg PO DAILY 08/08/19 Nifedipine [Nifedipine ER] 90 mg PO DAILY 08/08/19 Albuterol 0.083% Nebulizer Malorie 1 neb NEB Q4H PRN 08/09/19 [Ventolin 0.083% Nebulizer Soln -] Aspirin [ASA -] 81 mg PO DAILY tab.chew 08/09/19 Valsartan [Diovan] 80 mg PO DAILY #30 tablet 08/16/19 Laboratory Results - last 24 hr 08/16/19 08/16/19 05:43 05:43 WBC 6.9 RBC 3.61 Hgb 9.2 L Hct 29.5 L MCV 81.8 MCH 25.4 L MCHC 31.0 L RDW 20.6 H Plt Count 306 MPV 10.0 Sodium 140 Potassium 4.4 Chloride 107 Carbon Dioxide 29 Anion Gap 4 L BUN 35.3 H Creatinine 1.6 H Est GFR (CKD-EPI)AfAm 37.45 Est GFR (CKD-EPI)NonAf 32.31 Random Glucose 86 Calcium 9.3 Phosphorus 4.6 Magnesium 2.7 H ASSESSMENT AND PLAN: 68 yof with PMHx of COPD/bronchial asthma, acute on chronic diastolic heart failure (HFpEF), HTN, hypercholesterolemia, CAD h/o [place], 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 PT eval noted, home oxygen arranged. dispo dc home today with outpatient PCP/Cardiology/pulmonary and renal function/ CBC monitoring. Discussed with patient.
--- NOTE | 2019-08-16 14:23 | DS ---
Physical Exam: SUBJECTIVE: Patient seen and examined OBJECTIVE: Vital Signs Period Temp Pulse Resp BP Sys/Christensen Pulse Ox Last 24 Hr 97.4 F-98.6 F 57-88 12-18 97-136/41-69 93-96 PHYSICAL EXAM GENERAL: The patient is awake, alert. NAD HEAD: NC/AT. EYES: sclera anicteric, mild conjunctival pallor. ENT: Ears normal, nares patent, moist mucous membranes. Poor dentition NECK: Trachea midline, full range of motion, supple. LUNGS: mild b/l fine crackles at lung bases, no accessory muscle use. Breathing comfortably on 2L NC. Speaking in full sentences HEART: Regular rate and rhythm, S1, S2 without murmur, rub or gallop. ABDOMEN: Soft, nontender, nondistended, no guarding, no rebound. EXTREMITIES: 2+ pulses of DPs, warm, well-perfused. 1+ pitting edema to BLE, up to shins. Compressive MARY wraps in place NEUROLOGICAL: Normal speech PSYCH: Normal mood, normal affect. SKIN: Warm, dry, normal turgor, no rashes or lesions noted LABS Laboratory Results - last 24 hr 08/16/19 08/16/19 05:43 05:43 WBC 6.9 RBC 3.61 Hgb 9.2 L Hct 29.5 L MCV 81.8 MCH 25.4 L MCHC 31.0 L RDW 20.6 H Plt Count 306 MPV 10.0 Sodium 140 Potassium 4.4 Chloride 107 Carbon Dioxide 29 Anion Gap 4 L BUN 35.3 H Creatinine 1.6 H Est GFR (CKD-EPI)AfAm 37.45 Est GFR (CKD-EPI)NonAf 32.31 Random Glucose 86 Calcium 9.3 Phosphorus 4.6 Magnesium 2.7 H HOSPITAL COURSE: 68 y.o. F PMH asthma/COPD, HFpEF(LVEF 55%, 07/17/19), CAD(RCA MANAGER OF FINANCIAL REPORTING), normal stress test(08/09/19), HTN, HLD, dementia presenting for SOB and chest tightness that did not improve with home breathing treatment. Admitted for CHFe. At [facility] , pt found to be hypoxic w/ ABG showing pO2 62.6, saturating to a reported 86% w / ambulation. BNP ~2440--> rpt 3205. CXR showing pulmonary congestion. Given albuterol, lasix, solumedrol. Having intermittent SOB which prompted ventimask. Was administered pRBC dt to thought that SOB was 2/2 chronic anemia. Respirations improved, on 2L NC then RA. RT evalu for pre/post showing 80% on RA -exercise. Home O2 prescribed. BLE duplex done dt concern for LLE larger than RLE, no DVT on read. Cardio rec BLE MARY wraps and leg elevation. Heart cath to be discussed as outpatient. Cr peak ~1.6(plateau'd), to be trended as outpatient. Stable for D/C home with home services. Date of Admission:08/11/19 Date of Discharge: 08/16/19 Minutes to complete discharge: 20 Discharge Summary Problems reviewed: Yes Reason For Visit: CHRONIC OBSTRUCTIVE PULMONARY DISEASE WITH ACUTE Current Active Problems CHF (congestive heart failure) (Acute) Condition: Stable - Instructions Diet, Activity, Other Instructions: You were evaluated in the hospital for shortness of breath and chest tightness. Chest xray and labwork showed signs of fluid overload of the heart, affected the lungs. You were given medications to urinate out excessive fluids. You were given one unit of blood transfusion due to your low hemoglobin. Respiratory therapist evaluated you and determined that your O2 saturation decreases with exercise. You were recommended to have oxygen prescribed for home. A bolt cutter evaluated you and started a new medication(valsartan). Medications: - NEW medications: -- valsartan[DIOVAN] 80mg, to be taken daily - continue with other normal home medications as prescribed Please follow up with the physicians below: - PCP(your PCP or Dr Ballard): to discuss your recent hospitalization, recheck your labwork (CBC, BMP) in 1week to make sure your kidney function is stable - Growth Hacker(Dr Mir Rayo or Dr Mohan Rosado): to discuss possible cardiac catheterization to examine the blood vessels of the heart - Fine Jewelry Sales Associate(Dr Mir Ghosh): to discuss scheduling for Pulmonary Function Tests, and Nocturnal Polysomnogram (sleep study) Other instructions: - maintain a healthy heart diet(low salt, low sugar, high fiber) - avoid excessive fluid intake(less than 1.2L daily) - Weigh yourself daily, notify your doctor if weight gain > 3lbs in 2 days. - keep legs elevated at rest. - You will need regular monitoring of your kidney function and of your blood counts with your doctor. -You will be discharged on home oxygen, Please use 2 Liters during activity and at night time. NO SMOKING WITH OXYGEN IS A FIRED HAZARD. Please seek immediate medical attention or go to the Emergency Department if you experience: - shortness of breath, trouble breathing, unresolving cough - chest pain, palpitations - burning with urination, fevers, chills, confusion or any new concerns Referrals: Mir Rayo [Non Staff, Medical] - Manju Dickson MD [Primary Care Provider] - Romeo Bhatia MD [Staff Physician] - Mohan Rosado MD [Staff Physician] - Disposition: VNS/HOME HEALTH CARE - Home Medications Comprehensive Discharge Medication List: Ambulatory Orders Allopurinol [Zyloprim -] 100 mg PO DAILY 09/10/18 Donepezil HCl 10 mg PO HS 09/10/18 Calcium Carbonate [Calcium] 600 mg PO DAILY 07/17/19 Ergocalciferol (Vitamin D2) [Vitamin D2] 25 mcg PO DAILY 07/17/19 Ferrous Sulfate 325 mg PO BID #60 tablet 07/25/19 Carvedilol 25 mg PO BID 08/08/19 Fluticasone Propion/Salmeterol [Fluticasone-Salmeterol 500-50] 1 each IH BID 03/21 Furosemide 40 mg PO DAILY 08/08/19 Nifedipine [Nifedipine ER] 90 mg PO DAILY 08/08/19 Albuterol 0.083% Nebulizer Malorie [Ventolin 0.083% Nebulizer Soln -] 1 neb NEB Q4H PRN 08/09/19 Aspirin [ASA -] 81 mg PO DAILY tab.chew 08/09/19 Valsartan [Diovan] 80 mg PO DAILY #30 tablet 08/16/19 This patient is new to me today: No Emergency Visit: No Critical Care patient: No - Discharge Referral Referred to [facility] Med [facility] No ATTENDING PHYSICIAN STATEMENT I saw and evaluated the patient. I reviewed the resident's note and discussed the case with the resident. I agree with the resident's findings and plan as documented. SUBJECTIVE: OBJECTIVE: ASSESSMENT AND PLAN:
[2019-08-16 18:19] VITALS: BP 122/48; PULSE 62; TEMP 98.6
== END 2019-08-16 19:14 | disposition home health service (06) | DRG 291 ==
LOC: JER 02:10 → JERBED 04:26 → J2W 08:09
PROVIDERS: ADMIT Internal Medicine; ATTEND Hospitalist
PROC: 30233N1 Transfusion of Nonautologous Red Blood Cells into Peripheral Vein, Percutaneous Approach (ICD-10-PCS; principal; 2019-08-12)
DX: I13.0 Hypertensive heart and chronic kidney disease with heart failure and stage 1 through stage 4 chronic kidney disease, or unspecified chronic kidney disease (principal); I50.33 Acute on chronic diastolic (congestive) heart failure; J96.21 Acute and chronic respiratory failure with hypoxia; J44.1 Chronic obstructive pulmonary disease with (acute) exacerbation; Z68.41 Body mass index [BMI] 40.0-44.9, adult; N17.9 Acute kidney failure, unspecified; D64.9 Anemia, unspecified; E66.01 Morbid (severe) obesity due to excess calories; N18.9 Chronic kidney disease, unspecified; F03.90 Unspecified dementia, unspecified severity, without behavioral disturbance, psychotic disturbance, mood disturbance, and anxiety; G47.33 Obstructive sleep apnea (adult) (pediatric); I25.10 Atherosclerotic heart disease of native coronary artery without angina pectoris; E78.5 Hyperlipidemia, unspecified; I16.0 Hypertensive urgency
CPT/HCPCS: 36415; 36430; 36511; 36600; 71045-TC-FY; 80048; 80053; 82803; 83735; 83880; 84100; 84443; 84484; 85025; 85027; 86850; 86900; 86901; 86922; 93005; 93010; 93970-TC; 94640; 94761; 97116-GP; 97161-GP; 99282-25; J1644; P9038; P9058

== ENCOUNTER 2019-08-17 04:48 | Emergency (ER) | payer OTHER ==
[2019-08-17 04:54] VITALS: BP 117/60; PULSE 82; TEMP 97.6; BMI 42.5
[2019-08-17] MEDS ORDERED: ACETAMINOPHEN 500 MG TABLET (FP) PO ONE (05:16)
[2019-08-17] MEDS ORDERED: ACETAMINOPHEN 325 MG TABLET (FP) ONE (05:19)
--- NOTE | 2019-08-17 05:46 | PDOC ---
History of Present Illness - General Chief Complaint: Muscle Cramping Stated Complaint: LEG CRAMP Time Seen by Provider: 08/17/19 05:02 History Source: Patient Exam Limitations: No Limitations - History of Present Illness Initial Comments: 08/17/19 05:40 Patient is a 68F with history of asthma/copd, CAD, HTN, dementia, recent admissions x2 (last 08/11-08/16) for CP and shortness of breath is presenting here to the ED with pain in her legs bilaterally. Patient was also concerned that her home O2 tubing was too long and not working. She reports that when using the shorter oxygen tubing from EMS, she felt like she could breathe better. She reports that her shortness of breath has resolved since using the shorter tubing. Patient's leg pain is located on her anterior thighs and is better with standing. The pain is described as a cramping. Patient had labs done less than 24 hours before my evaluation. She had normal potassium. She had a normal stress test and bilateral duplex studies during her prior recent admissions. Denies fevers, chills, nausea, vomiting. Denies chest pain. Patient states that she feels ok now and would like to go home with the shorter oxygen tubing. Past History - Past Medical History Allergies/Adverse Reactions: Allergies Allergy/AdvReac Type Severity Reaction Status Date / Time No Known Drug Allergies Allergy Verified 08/17/19 04:54 Shellfish Allergy Uncoded 08/17/19 04:54 Home Medications: Ambulatory Orders Allopurinol [Zyloprim -] 100 mg PO DAILY 09/10/18 Donepezil HCl 10 mg PO HS 09/10/18 Calcium Carbonate [Calcium] 600 mg PO DAILY 07/17/19 Ergocalciferol (Vitamin D2) [Vitamin D2] 25 mcg PO DAILY 07/17/19 Ferrous Sulfate 325 mg PO BID #60 tablet 07/25/19 Carvedilol 25 mg PO BID 08/08/19 Fluticasone Propion/Salmeterol [Fluticasone-Salmeterol 500-50] 1 each IH BID 03/21 Furosemide 40 mg PO DAILY 08/08/19 Nifedipine [Nifedipine ER] 90 mg PO DAILY 08/08/19 Albuterol 0.083% Nebulizer Malorie [Ventolin 0.083% Nebulizer Soln -] 1 neb NEB Q4H PRN 08/09/19 Aspirin [ASA -] 81 mg PO DAILY tab.chew 08/09/19 Valsartan [Diovan] 80 mg PO DAILY #30 tablet 08/16/19 Asthma: Yes CVA: Yes COPD: Yes CHF: Yes Dementia: Yes HTN: Yes Hypercholesterolemia: Yes Seizures: Yes (EPILEPTIC SEIZURES) - Immunization History Immunization Up to Date: Yes - Psycho Social/Smoking Cessation Hx Smoking Status: No Smoking History: Former smoker Have you smoked in the past 12 months: No Number of Cigarettes Smoked Daily: 10 If you are a former smoker, when did you quit?: 2018 Information on smoking cessation initiated: No 'Breaking Loose' booklet given: 09/10/18 Hx Alcohol Use: No Drug/Substance Use Hx: No Substance Use Type: None Hx Substance Use Treatment: No Review of Systems - Review of Systems Able to Perform ROS?: Yes Comments:: 08/17/19 05:45 GENERAL/CONSTITUTIONAL: No fever or chills. No weakness. HEAD, EYES, EARS, NOSE AND THROAT: No change in vision. No sore throat. CARDIOVASCULAR: No chest pain +shortness of breath, resolved now RESPIRATORY: No cough, wheezing, or hemoptysis. GASTROINTESTINAL: No nausea, vomiting, diarrhea or constipation. GENITOURINARY: No dysuria, frequency, or change in urination. MUSCULOSKELETAL: +thigh pain. No neck or back pain. SKIN: No rash NEUROLOGIC: No headache, vertigo, loss of consciousness, or change in strength/ sensation. ENDOCRINE: No increased thirst. No abnormal weight change HEMATOLOGIC/LYMPHATIC: No anemia, easy bleeding, or history of blood clots. ALLERGIC/IMMUNOLOGIC: No hives or skin allergy. *Physical Exam - Vital Signs Last Vital Signs Temp Pulse Resp BP Pulse Ox 97.6 F 82 20 117/60 97 08/17/19 04:51 08/17/19 04:51 08/17/19 04:51 08/17/19 04:51 08/17/19 05:02 - Physical Exam Comments: 08/17/19 05:47 GENERAL: Awake, alert, and fully oriented, in no acute distress HEAD: No signs of trauma, normocephalic, atraumatic EYES: PERRLA, EOMI, sclera anicteric, conjunctiva clear ENT: Auricles normal inspection, hearing grossly normal, nares patent, oropharynx clear without exudates. Moist mucosa NECK: Normal ROM, supple, no lymphadenopathy, JVD, or masses LUNGS: No distress, speaks full sentences, clear to auscultation bilaterally HEART: Regular rate and rhythm, normal S1 and S2, no murmurs, rubs or gallops, peripheral pulses normal and equal bilaterally. ABDOMEN: Soft, nontender, normoactive bowel sounds. No guarding, no rebound. No masses EXTREMITIES: Normal inspection, Normal range of motion, no edema. No clubbing or cyanosis. NEUROLOGICAL: Cranial nerves II through XII grossly intact. Normal speech, normal gait, no focal sensorimotor deficits SKIN: Warm, Dry, normal turgor, no rashes or lesions noted. ED Treatment Course - Medications Given in the ED: ED Medications Discontinued Medications Generic Name Dose Route Start Last Admin Trade Name Freq PRN Reason Stop Dose Admin Acetaminophen 975 mg 08/17/19 05:16 08/17/19 05:20 Tylenol - PO 08/17/19 05:17 975 mg ONCE ONE Administration Medical Decision Making - Medical Decision Making 08/17/19 05:48 Patient is 68F with history of asthma/copd, cad here today with shortness of breath and leg pain. SOB resolved with new O2 tubing. Satting 100% on room air at this time. No chest pain. Recent workup all negative. Patient leg pain is msk. Prior workup makes other causes like dvt, hypokalemia, etc very unlikely. Given tylenol for pain. Patient now asking to go home. Will discharge. Discharge - Discharge Information Problems reviewed: Yes Clinical Impression/Diagnosis: Leg pain, bilateral Condition: Good Disposition: HOME - Admission No - Follow up/Referral - Patient Discharge Instructions Patient Printed Discharge Instructions: DI for Leg Pain Additional Instructions: Please follow up with your primary care provider in the next week regarding your recent hospitalizations and home oxygen setup. Please return to the ED immediately if you have any new, worsening or concerning symptom, especially worsening pain, shortness of breath or fever. - Post Discharge Activity
--- NOTE | 2019-08-17 06:29 | PDOC ---
Attending Attestation - Resident Resident Name: Xander Huerta - ED Attending Attestation I have performed the following: I have examined & evaluated the patient, The case was reviewed & discussed with the resident, I agree w/resident's findings & plan, Exceptions are as noted - HPI HPI: 08/17/19 07:40 68F pmh CAD, HTN, asthma/COPD, dementia here with bilateral proximal leg pain described as cramping. No numbness, weakness. Px improved with standing and stretching. - Physicial Exam PE: 08/17/19 07:41 Agree with exam as documented by resident - Medical Decision Making 08/17/19 07:42 Likelky msk, unlikely dvt, arterial occlusion, neurologic, electrolyte derangement Pt symptomatically better dc home
== END 2019-08-17 06:01 | disposition home or self-care (01) ==
LOC: JER 04:48
DX: M79.604 Pain in right leg (principal); M79.605 Pain in left leg; J45.909 Unspecified asthma, uncomplicated; R06.02 Shortness of breath; I10 Essential (primary) hypertension; F03.90 Unspecified dementia, unspecified severity, without behavioral disturbance, psychotic disturbance, mood disturbance, and anxiety; I25.10 Atherosclerotic heart disease of native coronary artery without angina pectoris; Z87.891 Personal history of nicotine dependence; Z91.013 Allergy to seafood
CPT/HCPCS: 99282-25

== ENCOUNTER 2019-08-28 00:59 | Observation (INO) | payer OTHER ==
--- NOTE | 2019-08-28 01:16 | PDOC ---
Attending Attestation - Resident Resident Name: RobertmahadMohan - ED Attending Attestation I have performed the following: I have examined & evaluated the patient, The case was reviewed & discussed with the resident, I agree w/resident's findings & plan - HPI HPI: 08/28/19 03:21 see resident hpi - Physicial Exam PE: 08/28/19 03:22 agree with resident exam - Medical Decision Making 08/28/19 03:25 68-year-old female with extensive past medical history and complaints of chest tightness Patient has some improvement after 1 DuoNeb in route Due to history of coronary artery disease as well as COPD and CHF she will be held for 24-hour observation
[2019-08-28 01:25] VITALS: BMI 42.3
--- NOTE | 2019-08-28 01:56 | PDOC ---
History of Present Illness - General Chief Complaint: Shortness of Breath Stated Complaint: SOB Time Seen by Provider: 08/28/19 01:15 History Source: Patient Exam Limitations: No Limitations - History of Present Illness Initial Comments: 08/28/19 01:46 68F with a PMH of asthma/copd, CAD, HTN, dementia, recent admissions x2 (last -08/16) for CP and shortness of breath who presents to the ER for sudden onset chest tightness. The patient is with her daughter who helps provide the history. The patient states that she developed sudden onset, retrosternal chest tightness, without radiation and slight shortness of breath. She denies palpitations, nausea, vomiting, lightheadedness, diaphoresis, syncope. She states that she feels better after being given the breathing treatment by EMS. Past History - Past Medical History Allergies/Adverse Reactions: Allergies Allergy/AdvReac Type Severity Reaction Status Date / Time No Known Drug Allergies Allergy Verified 08/17/19 04:54 Shellfish Allergy Uncoded 08/17/19 04:54 Home Medications: Ambulatory Orders Allopurinol [Zyloprim -] 100 mg PO DAILY 09/10/18 Donepezil HCl 10 mg PO HS 09/10/18 Calcium Carbonate [Calcium] 600 mg PO DAILY 07/17/19 Ergocalciferol (Vitamin D2) [Vitamin D2] 25 mcg PO DAILY 07/17/19 Ferrous Sulfate 325 mg PO BID #60 tablet 07/25/19 Carvedilol 25 mg PO BID 08/08/19 Nifedipine [Nifedipine ER] 90 mg PO DAILY 08/08/19 Albuterol 0.083% Nebulizer Malorie [Ventolin 0.083% Nebulizer Soln -] 1 neb NEB Q4H PRN 08/09/19 Aspirin [ASA -] 81 mg PO DAILY tab.chew 08/09/19 Valsartan [Diovan] 80 mg PO DAILY #30 tablet 08/16/19 Fluticasone Propion/Salmeterol [Wixela 250-50 Inhub] 1 each IH BID 08/28/19 Furosemide [Lasix -] 40 mg PO Q48H #14 tablet 08/28/19 Asthma: Yes CVA: Yes COPD: Yes CHF: Yes Dementia: Yes HTN: Yes Hypercholesterolemia: Yes Seizures: Yes (EPILEPTIC SEIZURES) - Immunization History TDAP Vaccination: Yes Immunization Up to Date: Yes - Psycho Social/Smoking Cessation Hx Smoking Status: No Smoking History: Never smoked Have you smoked in the past 12 months: No Number of Cigarettes Smoked Daily: 10 If you are a former smoker, when did you quit?: 2017 Information on smoking cessation initiated: No 'Breaking Loose' booklet given: 09/10/18 Hx Alcohol Use: No Drug/Substance Use Hx: No Substance Use Type: None Hx Substance Use Treatment: No Review of Systems - Review of Systems Able to Perform ROS?: Yes Is the patient limited Green[place]ic proficient: No Constitutional: No: Chills, Fever HEENTM: No: Eye Pain, Blurred Vision Respiratory: Yes: Shortness of Breath, Wheezing. No: Stridor Cardiac (ROS): Yes: Chest Tightness. No: Chest Pain ABD/GI: No: Nausea, Vomiting : No: Burning, Dysuria Musculoskeletal: No: Back Pain, Neck Pain Neurological: No: Headache, Numbness, Tingling, Weakness *Physical Exam - Vital Signs Last Vital Signs Temp Pulse Resp BP Pulse Ox 98.7 F 83 22 H 138/66 100 08/28/19 01:22 08/28/19 01:22 08/28/19 01:22 08/28/19 01:22 08/28/19 01:22 - Physical Exam General Appearance: Yes: Nourished, Appropriately Dressed. No: Apparent Distress HEENT: positive: Normal Voice, Hearing Grossly Normal Respiratory/Chest: positive: Lungs Clear, Normal Breath Sounds, Other ( Diminished on L side). negative: Chest Tender Cardiovascular: positive: Regular Rhythm, Regular Rate. negative: Diastolic Murmur, Systolic Murmur Gastrointestinal/Abdominal: positive: Flat, Soft. negative: Tender Musculoskeletal: negative: CVA Tenderness, CVA Tenderness (R), CVA Tenderness (L ) Extremity: positive: Normal Range of Motion. negative: Calf Tenderness Integumentary: positive: Dry, Warm Neurologic: positive: test engineering manager II-XII NML intact, Fully Oriented, Alert, Normal Mood/ Affect Heart Score/ECG Review - History History: Slightly suspicious - Electrocardiogram EKG: Non specific repolarization disturbance - Age Age: >/= 65 - Risk Factors Risk Factors Heart Score: Yes Hx Hypertension, Yes Positive family hx of cardiac disease, Yes Hx Obesity Based on the list above the patient has:: >/=3 risk factors or Hx atherosclerotic disease - Troponin Troponin: </= normal limit - Score Heart Score - Total: 5 ED Treatment Course - LABORATORY CBC & Chemistry Diagram: 08/28/19 09:26 08/28/19 09:26 - RADIOLOGY Radiology Studies Ordered: Category Date Time Status CHEST X-RAY PORTABLE* [RAD] Stat Radiology 08/28/19 01:25 Ordered Medical Decision Making - Medical Decision Making 08/28/19 02:06 68F with a PMH of asthma/copd, CAD, HTN, dementia, recent admissions x2 (last -08/16) for CP and shortness of breath who presents to the ER for chest tightness concerning for AL, COPD exacerbation, asthma, pneumonia. Vitals WNL. Pt states she feels better after being given the breathing treatments and denies active CP. 08/28/19 04:38 Labs WNL for patient. Cr at pt's baseline. Hgb at pt's baseline. Initial troponin negative. Preliminary read of CXR negative. Pt denies any active CP. HEART score of 5. Will admit for obs. On chart review, pt had ECHO on 07/21 and EKG which was unchanged. Will microblog for admission. 08/28/19 05:[address] Bowling for admission. Discharge - Discharge Information Problems reviewed: Yes Clinical Impression/Diagnosis: Shortness of breath, Chest pain Condition: Good Disposition: HOME - Admission Yes - Follow up/Referral - Patient Discharge Instructions - Post Discharge Activity
[2019-08-28 02:08] LABS: BASO % 1.6 % (0-2.0); EOS % 3.6 % (0-4.5); HEMATOCRIT 30.4 % (32.4-45.2); HEMOGLOBIN 9.6 GM/dL (10.7-15.3); LYMPH % 20.5 % (8-40); MCH 26.2 pg (25.7-33.7); MCHC 31.7 g/dl (32.0-36.0); MEAN CELL VOLUME 82.6 fl (80-96); MEAN PLT VOLUME 9.1 fl (7.5-11.1); MONO % 6.5 % (3.8-10.2); NEUT % 67.8 % (42.8-82.8); PLATELET COUNT 309 K/MM3 (134-434); RBC 3.68 M/mm3 (3.60-5.2); RDW 23.2 % (11.6-15.6)
[2019-08-28 03:04] LABS: VENOUS PC02 44.7 mmHg (38-52); VENOUS PH 7.38 (7.31-7.41)
[2019-08-28 03:33] LABS: INR 1.03 (0.83-1.09); PROTHROMBIN TIME (PATIENT) 12.2 SEC (9.7-13.0)
[2019-08-28 03:47] LABS: BILIRUBIN,TOTAL 0.2 mg/dL (0.2-1); BLOOD UREA NITROGEN 42.4 mg/dL (7-18); CALCIUM 9.4 mg/dL (8.5-10.1); CREATININE 1.7 mg/dL (0.55-1.3); N-TERMINAL BNP 1254.7 pg/ml (5-125); POTASSIUM 4.4 mmol/L (3.5-5.1); TOT PROT 7.2 g/dl (6.4-8.2)
[2019-08-28 04:15] LABS: ANISOCYTOSIS 2+; MACROCYTOSIS 1+
[2019-08-28 04:16] LABS: PLATELET ESTIMATE ADEQUATE
--- NOTE | 2019-08-28 04:56 | HP ---
CHIEF COMPLAINT: Chest tightness PCP: Dr. Manju Dickson HISTORY OF PRESENT ILLNESS: 68 y/o female PMH asthma, CHF, COPD, CAD, HTN, dementia c/o chest tightness. She states that she was sleeping and was awaken by a sensation of chest tightness. She states this has occurred in the past and it is relief by using her inhaler at home. This evening 27 Aug 2019, she did not have any more inhalers and her daughter called EMS. She experienced symptom relief with nebulizer administered en route to ED. The CP is located in the midsternal area , started this evening, pressure in character, non-radiating, made worse by deep inspiration and better with repositioning and her inhaler, it is rated 6/ 10. She also says she experiences a non-productive cough. She denies SOB, NVFD, and chills. She has not been ill recently, around sick contacts, or traveled recently. Recent Travel: Denies PAST MEDICAL HISTORY: Asthma, CHF, COPD, CAD, HTN, dementia PAST SURGICAL HISTORY: Hysterectomy Social History: Smoking: Former smoker; quit in 2017 Alcohol: Denies Drugs: Denies Allergies: No Known Drug Allergies Allergy (Verified 08/17/19 04:54), Shellfish Allergy (Uncoded 08/17/19 04:54) HOME MEDICATIONS: Medication Instructions Recorded Allopurinol [Zyloprim -] 100 mg PO DAILY 09/10/18 Donepezil HCl 10 mg PO HS 09/10/18 Calcium Carbonate [Calcium] 600 mg PO DAILY 07/17/19 Ergocalciferol (Vitamin D2) 25 mcg PO DAILY 07/17/19 [Vitamin D2] Ferrous Sulfate 325 mg PO BID #60 tablet 07/25/19 Carvedilol 25 mg PO BID 08/08/19 Furosemide 40 mg PO DAILY 08/08/19 Nifedipine [Nifedipine ER] 90 mg PO DAILY 08/08/19 Albuterol 0.083% Nebulizer Malorie 1 neb NEB Q4H PRN 08/09/19 [Ventolin 0.083% Nebulizer Soln -] Aspirin [ASA -] 81 mg PO DAILY tab.chew 08/09/19 Valsartan [Diovan] 80 mg PO DAILY #30 tablet 08/16/19 Fluticasone Propion/Salmeterol 1 each IH BID 08/28/19 [Wixela 250-50 Inhub] REVIEW OF SYSTEMS CONSTITUTIONAL: Absent: fever, chills, diaphoresis, generalized weakness, malaise, loss of appetite, weight change HEENT: Absent: rhinorrhea, nasal congestion, throat pain, throat swelling, difficulty swallowing, mouth swelling, ear pain, eye pain, visual changes CARDIOVASCULAR: Absent: chest pain, syncope, palpitations, irregular heart rate, lightheadedness , peripheral edema RESPIRATORY: Absent: cough, shortness of breath, dyspnea with exertion, orthopnea, wheezing, stridor, hemoptysis GASTROINTESTINAL: Absent: abdominal pain, abdominal distension, nausea, vomiting, diarrhea, constipation, melena, hematochezia GENITOURINARY: Absent: dysuria, frequency, urgency, hesitancy, hematuria, flank pain, genital pain MUSCULOSKELETAL: Absent: myalgia, arthralgia, joint swelling, back pain, neck pain SKIN: Absent: rash, itching, pallor HEMATOLOGIC/IMMUNOLOGIC: Absent: easy bleeding, easy bruising, lymphadenopathy, frequent infections ENDOCRINE: Absent: unexplained weight gain, unexplained weight loss, heat intolerance, cold intolerance NEUROLOGIC: Absent: headache, focal weakness or paresthesias, dizziness, unsteady gait, seizure, mental status changes, bladder or bowel incontinence PSYCHIATRIC: Absent: anxiety, depression, suicidal or homicidal ideation, hallucinations. PHYSICAL EXAMINATION Vital Signs - 24 hr 08/28/19 01:22 Temperature 98.7 F Pulse Rate 83 Respiratory 22 H Rate Blood Pressure 138/66 O2 Sat by Pulse 100 Oximetry (%) GENERAL: AOx3, in no acute distress, obese, lethargic but responsive, resting in bed HEAD: NCAT EYES: FIDENCIO, EOMI, conjunctiva clear. ENT: Ears normal, nares patent, oropharynx clear without exudates. Moist mucous membranes. NECK: Normal range of motion, supple without lymphadenopathy, JVD, or masses. LUNGS: CTAB. No wheezes, and no crackles. No accessory muscle use. HEART: RRR s1 s2 ABDOMEN: Soft, BS present in all 4 quadrants, non-distended, no JVD, MUSCULOSKELETAL: No bony deformities or tenderness. No CVA tenderness. UPPER EXTREMITIES: 2+ pulses, warm, well-perfused. No cyanosis. No clubbing. NO peripheral edema. LOWER EXTREMITIES: 2+ pulses, warm, well-perfused. No calf tenderness. No peripheral edema. NEUROLOGICAL: No focal deficits. Cranial nerves II-XII intact. Normal speech. Gait not appreciated. PSYCHIATRIC: Cooperative. Good eye contact. Appropriate mood and affect. SKIN: Warm, dry, normal turgor, no rashes or lesions noted, normal capillary refill. Laboratory Results - last 24 hr 08/28/19 08/28/19 08/28/19 01:59 01:59 01:59 WBC 8.0 RBC 3.68 Hgb 9.6 L Hct 30.4 L MCV 82.6 MCH 26.2 MCHC 31.7 L RDW 23.2 H Plt Count 309 MPV 9.1 Absolute Neuts (auto) 5.4 Neutrophils % 67.8 Lymphocytes % 20.5 Monocytes % 6.5 Eosinophils % 3.6 Basophils % 1.6 Nucleated RBC % 0 Hypochromia 1+ Platelet Estimate Adequate Poikilocytosis Few Anisocytosis 2+ Macrocytosis 1+ Spherocytes 2+ PT with INR 12.20 INR 1.03 VBG pH POC VBG pCO2 POC VBG pO2 VBG HCO3 VBG O2 Sat (Mu) VBG Base Excess Sodium 141 Potassium 4.4 Chloride 109 H Carbon Dioxide 27 Anion Gap 5 L BUN 42.4 H Creatinine 1.7 H Est GFR (CKD-EPI)AfAm 34.80 Est GFR (CKD-EPI)NonAf 30.03 Random Glucose 98 Calcium 9.4 Total Bilirubin 0.2 AST 12 L ALT 14 Alkaline Phosphatase 100 Creatine Kinase Troponin I B-Natriuretic Peptide 1254.7 H Total Protein 7.2 Albumin 3.0 L 08/28/19 08/28/19 01:59 02:50 WBC RBC Hgb Hct MCV MCH MCHC RDW Plt Count MPV Absolute Neuts (auto) Neutrophils % Lymphocytes % Monocytes % Eosinophils % Basophils % Nucleated RBC % Hypochromia Platelet Estimate Poikilocytosis Anisocytosis Macrocytosis Spherocytes PT with INR INR VBG pH 7.38 POC VBG pCO2 44.7 POC VBG pO2 No Result Required. VBG HCO3 25.9 VBG O2 Sat (Mu) 78.6 VBG Base Excess 1.1 Sodium Potassium Chloride Carbon Dioxide Anion Gap BUN Creatinine Est GFR (CKD-EPI)AfAm Est GFR (CKD-EPI)NonAf Random Glucose Calcium Total Bilirubin AST ALT Alkaline Phosphatase Creatine Kinase 65 Troponin I 0.03 B-Natriuretic Peptide Total Protein Albumin ASSESSMENT/PLAN: 68 y/o female PMH asthma, CHF, COPD, CAD, HTN, dementia Recent admissions x2 ( last 08/11-08/16) for Chest pain and SOB who presents to the ER for sudden onset chest tightness. On home 02. Trop NEG. EKG NSR. # TREY/OHS - Obese - Sleep study - PFT - Weight loss - Recent ECHO: LV grossly normal # F/E/N - NS - Cont. to monitor - Sodium reduced diet # DVT prophylaxis - Heparin SQ # Disposition - Admit to tele/observation Bienvenido Bonilla MD Visit type - Emergency Visit Emergency Visit: Yes ED Registration Date: 08/28/19 Care time: The patient presented to the Emergency Department on the above date and was hospitalized for further evaluation of their emergent condition. - New Patient This patient is new to me today: Yes Date on this admission: 08/28/19 - Critical Care Critical Care patient: No ATTENDING PHYSICIAN STATEMENT I saw and evaluated the patient. I reviewed the resident's note and discussed the case with the resident. I agree with the resident's findings and plan as documented. SUBJECTIVE: OBJECTIVE: ASSESSMENT AND PLAN:
[2019-08-28] MEDS ORDERED: ALBUTEROL SO4 0.083% IH SOL 2.5 MG/3 ML VIAL.NEB. NEB PRN (05:24)
--- NOTE | 2019-08-28 05:35 | PN ---
Teaching Attending Note Name of Resident: Janelle Bass ATTENDING PHYSICIAN STATEMENT I saw and evaluated the patient. I reviewed the resident's note and discussed the case with the resident. I agree with the resident's findings and plan as documented. SUBJECTIVE: Patient is a 68 year old woman with a PMH of Asthma/COPD, CAD, Morbid obesity, HTN, Dementia, TIA, Gout, Recent admissions x2 (last 08/11-08/16) for Chest pain and SOB who presents to the ER for sudden onset chest tightness. The patient is with her daughter who helps provide the history. The patient states that she developed sudden onset of retrosternal chest tightness, without radiation and slight shortness of breath. She denies palpitations, nausea, vomiting, lightheadedness, diaphoresis, syncope. She states that she felt better after being given the breathing treatment by EMS and was symptom free in the ER. Denies tobacco, alcohol and illicit drug use. OBJECTIVE: Alert Vital Signs Period Temp Pulse Resp BP Sys/Christensen Pulse Ox Last 24 Hr 98.7 F 83 22 138/66 96-100 HEENT: No Jaundice, eye redness or discharge, PERRLA, EOMI. Normocephalic, atraumatic. External ears are normal and hearing is grossly intact. No nasal discharge. Neck: Supple, nontender. No palpable adenopathy or thyromegaly. No JVD Chest: Good effort. Clear to auscultation and percussion. Heart: Regular. No S3, rub or murmur Abdomen: Not distended, soft, nontender and no HSM. No rebound or guarding. Normal bowel sounds. Ext: Peripheral pulses intact. No leg edema. Skin: Warm and dry. No petechiae, rash or ecchymosis. Neuro: Alert. Oriented x3. CN 2-12 grossly intact. Sensation grossly intact in all four extremities and DTR are symmetric. Psych: Appropriate mood and affect. Good insight. Current Medications Generic Name Dose Route Start Last Admin Trade Name Freq PRN Reason Stop Dose Admin Albuterol Sulfate 1 amp 08/28/19 05:24 Ventolin 0.083% Nebulizer Soln - NEB Q4H PRN WHEEZING Allopurinol 100 mg 08/28/19 10:00 Zyloprim - PO DAILY ARA Aspirin 81 mg 08/28/19 10:00 Asa - PO DAILY ARA Calcium Carbonate 650 mg 08/28/19 10:00 Calcium Carbonate - PO DAILY [facility] Carvedilol 25 mg 08/28/19 10:00 Coreg - PO BID [facility] Cholecalciferol 1,000 unit 08/28/19 10:00 Vitamin D3 - PO DAILY [facility] Donepezil HCl 10 mg 08/28/19 22:00 Aricept - PO HS [facility] Ferrous Sulfate 325 mg 08/28/19 17:30 Feosol - PO BIDWM ARA Furosemide 40 mg 08/28/19 10:00 Lasix - PO DAILY [facility] Heparin Sodium (Porcine) 5,000 unit 08/28/19 06:00 08/28/19 06:03 Heparin - SQ 5,000 unit TID [facility] Administration Nifedipine 90 mg 08/28/19 10:00 Procardia Xl - PO DAILY [facility] Non-Formulary Medication 1 each 08/28/19 10:00 Fluticasone Propion/Salmeterol [Wixela 250-50 Inhub] IH BID [facility] Valsartan 80 mg 08/28/19 10:00 Diovan - PO DAILY [facility] Home Medications Medication Instructions Recorded Allopurinol [Zyloprim -] 100 mg PO DAILY 09/10/18 Donepezil HCl 10 mg PO HS 09/10/18 Calcium Carbonate [Calcium] 600 mg PO DAILY 07/17/19 Ergocalciferol (Vitamin D2) 25 mcg PO DAILY 07/17/19 [Vitamin D2] Ferrous Sulfate 325 mg PO BID #60 tablet 07/25/19 Carvedilol 25 mg PO BID 08/08/19 Furosemide 40 mg PO DAILY 08/08/19 Nifedipine [Nifedipine ER] 90 mg PO DAILY 08/08/19 Albuterol 0.083% Nebulizer Malorie 1 neb NEB Q4H PRN 08/09/19 [Ventolin 0.083% Nebulizer Soln -] Aspirin [ASA -] 81 mg PO DAILY tab.chew 08/09/19 Valsartan [Diovan] 80 mg PO DAILY #30 tablet 08/16/19 Fluticasone Propion/Salmeterol 1 each IH BID 08/28/19 [Wixela 250-50 Inhub] Abnormal Lab Results 08/28/19 08/28/19 01:59 01:59 Hgb 9.6 L Hct 30.4 L MCHC 31.7 L RDW 23.2 H Chloride 109 H Anion Gap 5 L BUN 42.4 H Creatinine 1.7 H AST 12 L B-Natriuretic Peptide 1254.7 H Albumin 3.0 L ASSESSMENT AND PLAN: 1. Chest pain - Patient has risk factors for CAD. EKG shows NSR with no acute ischemic changes and initial troponin is negative. Will admit to telemetry to rule out ACS. CXR shows cardiomegaly with wide mediastinum. Recent ECHO showed normal LV systolic function and mild concentric LV hypertrophy. Will continue comprehensive care for all of patients comorbid conditions including Duoneb PRN for COPD. 2. Hypoalbuminemia - Possibly due to combined effects of proteinuria, malnutrition and inflammation associated with comorbid chronic conditions. Will ensure adequate dietary protein intake and also consult operations support analyst. 3. CKD - Has risk factors for CKD. Appears to have superimposed MARISOL possibly due to ?diuresis/diastolic CHF. Will consult nephrology and avoid nephrotoxic agents such as NSAIDS, aminoglycosides, contrast dyes and certain Alternative medicine products. 4. Anemia - Likely partly due to CKD. Will do basic anemia work up including serial stool guaiacs, reticulocyte count and iron studies. 5. Morbid obesity Counseled on the risks associated with obesity. Will provide patient all the necessary assistance, counseling and positive reinforcement to facilitate weight loss. Consult operations support analyst. 6. Hypertension - Restart suitable outpatient antihypertensive drugs when clinically appropriate. Revise regimen to ensure [id number] excellent BP control and pre parole counseling aide patient on the injurious effects of uncontrolled hypertension. Nonpharmacologic measures to control hypertension like weight loss , salt restriction and exercise discussed. Importance of adherence to treatment regimen and attainment of normotension emphasized. 7. DVT prophylaxis - Heparin 5000u sq tid. 8. Advance directives - Full code
[2019-08-28] MEDS ORDERED: HEPARIN NA (PORCINE) 5,000 UNITS/ML 1ML VIAL ONE ×2 (06:02→14:41)
[2019-08-28] MEDS: HEPARIN NA (PORCINE) 5,000 UNITS/ML 1ML VIAL SQ SCH ×2 (06:03→15:33)
[2019-08-28] MEDS ORDERED: NIFEdipine E.R. 30 MG TABLET (FP) ONE (09:14)
[2019-08-28] MEDS ORDERED: VALSARTAN 80 MG TABLET (UD) ONE (09:14)
[2019-08-28 09:55] LABS: HEMATOCRIT 28.1 % (32.4-45.2); MCH 26.4 pg (25.7-33.7); MCHC 32.2 g/dl (32.0-36.0); PLATELET COUNT 288 K/MM3 (134-434); RBC 3.42 M/mm3 (3.60-5.2); RDW 23.4 % (11.6-15.6); WHITE BLOOD COUNT 6.4 K/mm3 (4.0-10.0)
[2019-08-28] MEDS ORDERED: CHOLECALCIFEROL (VIT D3) 1,000 UNIT (25 MCG) TABLET PO SCH (10:00)
[2019-08-28] MEDS ORDERED: NIFEdipine E.R. 90 MG TABLET (FP) PO SCH (10:00)
[2019-08-28] MEDS ORDERED: CALCIUM CARBONATE 650 MG TABLET PO SCH (10:00)
[2019-08-28] MEDS ORDERED: CARVEDILOL 25 MG TABLET (FP) PO SCH (10:00)
[2019-08-28] MEDS ORDERED: VALSARTAN 80 MG TABLET (UD) PO SCH (10:00)
[2019-08-28] MEDS ORDERED: PATIENT'S OWN MEDICATION (NON-FORMULARY) (Fluticasone Propion/Salmeterol [Wixela 250-50 In IH SCH (10:00)
[2019-08-28] MEDS ORDERED: ALLOPURINOL 100 MG TABLET (FP) PO SCH (10:00)
[2019-08-28] MEDS ORDERED: FUROSEMIDE 40 MG TABLET (FP) PO SCH (10:00)
[2019-08-28] MEDS ORDERED: ASPIRIN 81 MG CHEWABLE TABLETS PO SCH (10:00)
[2019-08-28 10:08] LABS: BLOOD UREA NITROGEN 37.7 mg/dL (7-18); CALCIUM 9.2 mg/dL (8.5-10.1); CREATININE 1.5 mg/dL (0.55-1.3); MAGNESIUM 2.1 mg/dL (1.8-2.4); PHOSPHOROUS 3.8 mg/dL (2.5-4.9); POTASSIUM 4.2 mmol/L (3.5-5.1)
--- NOTE | 2019-08-28 10:33 | EKG ---
Test Reason : Blood Pressure : / mmHG Vent. Rate : 079 BPM Atrial Rate : 079 BPM P-R Int : 202 ms QRS Dur : 106 ms QT Int : 396 ms P-R-T Axes : 046 032 058 degrees QTc Int : 454 ms POOR DATA QUALITY, INTERPRETATION MAY BE ADVERSELY AFFECTED NORMAL SINUS RHYTHM INFERIOR INFARCT (CITED ON OR BEFORE 09-SEP-2018) POSSIBLE ANTERIOR INFARCT , AGE UNDETERMINED ABNORMAL ECG WHEN COMPARED WITH ECG OF 11-AUG-2019 03:09, NO SIGNIFICANT CHANGE WAS FOUND Confirmed by Eric Cameron MD ([id number]) on 08/28/2019 10:32:56 AM Referred By: Confirmed By:Eric Cameron MD
--- NOTE | 2019-08-28 15:53 | PN ---
Teaching Attending Note Name of Resident: Adela Srinivasan ATTENDING PHYSICIAN STATEMENT I saw and evaluated the patient. I reviewed the resident's note and discussed the case with the resident. I agree with the resident's findings and plan as documented. SUBJECTIVE: Feels well, chest pain resolved. Onset while watching TV night before. No associated palpitations/SOB/lightheadedness/diaphoresis. No fever/ chills/cough/sputum. OBJECTIVE: Afebrile, Hemodynamically Stable. AAO x 2-3. Last Vital Signs Temp Pulse Resp BP Pulse Ox 98.5 F 78 22 H 136/68 100 on 2L via NC 08/28/19 07:50 08/28/19 07:50 08/28/19 07:50 08/28/19 07:50 08/28/19 07:50 HEENT - Atraumaic, Normocephalic. Heart - S1, S2, RRR Lungs - clear to auscultation abdomen - Soft, non-tender. Bowel Sounds normal. Extremities - no calf tenderness. Trace edema LEs. Neuro - Mild L facial droop, Power 4/5 LLE. Laboratory Results - last 24 hr 08/28/19 08/28/19 08/28/19 01:59 01:59 01:59 WBC 8.0 RBC 3.68 Hgb 9.6 L Hct 30.4 L MCV 82.6 MCH 26.2 MCHC 31.7 L RDW 23.2 H Plt Count 309 MPV 9.1 Absolute Neuts (auto) 5.4 Neutrophils % 67.8 Lymphocytes % 20.5 Monocytes % 6.5 Eosinophils % 3.6 Basophils % 1.6 Nucleated RBC % 0 Hypochromia 1+ Platelet Estimate Adequate Poikilocytosis Few Anisocytosis 2+ Macrocytosis 1+ Spherocytes 2+ PT with INR 12.20 INR 1.03 VBG pH POC VBG pCO2 POC VBG pO2 VBG HCO3 VBG O2 Sat (Mu) VBG Base Excess Sodium 141 Potassium 4.4 Chloride 109 H Carbon Dioxide 27 Anion Gap 5 L BUN 42.4 H Creatinine 1.7 H Est GFR (CKD-EPI)AfAm 34.80 Est GFR (CKD-EPI)NonAf 30.03 Random Glucose 98 Calcium 9.4 Phosphorus Magnesium Total Bilirubin 0.2 AST 12 L ALT 14 Alkaline Phosphatase 100 Creatine Kinase Troponin I B-Natriuretic Peptide 1254.7 H Total Protein 7.2 Albumin 3.0 L 08/28/19 08/28/19 08/28/19 01:59 02:50 09:26 WBC 6.4 RBC 3.42 L Hgb 9.0 L Hct 28.1 L MCV 82.0 MCH 26.4 MCHC 32.2 RDW 23.4 H Plt Count 288 MPV 9.0 Absolute Neuts (auto) Neutrophils % Lymphocytes % Monocytes % Eosinophils % Basophils % Nucleated RBC % Hypochromia Platelet Estimate Poikilocytosis Anisocytosis Macrocytosis Spherocytes PT with INR INR VBG pH 7.38 POC VBG pCO2 44.7 POC VBG pO2 No Result Required. VBG HCO3 25.9 VBG O2 Sat (Mu) 78.6 VBG Base Excess 1.1 Sodium Potassium Chloride Carbon Dioxide Anion Gap BUN Creatinine Est GFR (CKD-EPI)AfAm Est GFR (CKD-EPI)NonAf Random Glucose Calcium Phosphorus Magnesium Total Bilirubin AST ALT Alkaline Phosphatase Creatine Kinase 65 Troponin I 0.03 B-Natriuretic Peptide Total Protein Albumin 08/28/19 09:26 WBC RBC Hgb Hct MCV MCH MCHC RDW Plt Count MPV Absolute Neuts (auto) Neutrophils % Lymphocytes % Monocytes % Eosinophils % Basophils % Nucleated RBC % Hypochromia Platelet Estimate Poikilocytosis Anisocytosis Macrocytosis Spherocytes PT with INR INR VBG pH POC VBG pCO2 POC VBG pO2 VBG HCO3 VBG O2 Sat (Um) VBG Base Excess Sodium 139 Potassium 4.2 Chloride 109 H Carbon Dioxide 24 Anion Gap 6 L BUN 37.7 H Creatinine 1.5 H Est GFR (CKD-EPI)AfAm 40.49 Est GFR (CKD-EPI)NonAf 34.93 Random Glucose 104 Calcium 9.2 Phosphorus 3.8 Magnesium 2.1 Total Bilirubin AST ALT Alkaline Phosphatase Creatine Kinase 56 Troponin I 0.03 B-Natriuretic Peptide Total Protein Albumin Current Medications Generic Name Dose Route Start Last Admin Trade Name Freq PRN Reason Stop Dose Admin Albuterol Sulfate 1 amp 08/28/19 05:24 Ventolin 0.083% Nebulizer Soln - NEB Q4H PRN WHEEZING Allopurinol 100 mg 08/28/19 10:00 08/28/19 09:15 Zyloprim - PO 100 mg DAILY ARA Administration Aspirin 81 mg 08/28/19 10:00 08/28/19 09:15 Asa - PO 81 mg DAILY [facility] Administration Calcium Carbonate 650 mg 08/28/19 10:00 08/28/19 09:15 Calcium Carbonate - PO 650 mg DAILY [facility] Administration Carvedilol 25 mg 08/28/19 10:00 08/28/19 09:15 Coreg - PO 25 mg BID [facility] Administration Cholecalciferol 1,000 unit 08/28/19 10:00 08/28/19 10:20 Vitamin D3 - PO 1,000 unit DAILY [facility] Administration Donepezil HCl 10 mg 08/28/19 22:00 Aricept - PO HS ARA Ferrous Sulfate 325 mg 08/28/19 17:30 Feosol - PO BIDWM ARA Furosemide 40 mg 08/28/19 10:00 08/28/19 10:20 Lasix - PO 40 mg DAILY [facility] Administration Heparin Sodium (Porcine) 5,000 unit 08/28/19 06:00 08/28/19 15:33 Heparin - SQ 5,000 unit TID [facility] Administration Nifedipine 90 mg 08/28/19 10:00 08/28/19 09:15 Procardia Xl - PO 90 mg DAILY [facility] Administration Non-Formulary Medication 1 each 08/28/19 10:00 Fluticasone Propion/Salmeterol [Wixela 250-50 Inhub] IH BID [facility] Valsartan 80 mg 08/28/19 10:00 08/28/19 09:15 Diovan - PO 80 mg DAILY [facility] Administration Home Medications Medication Instructions Recorded Allopurinol [Zyloprim -] 100 mg PO DAILY 09/10/18 Donepezil HCl 10 mg PO HS 09/10/18 Calcium Carbonate [Calcium] 600 mg PO DAILY 07/17/19 Ergocalciferol (Vitamin D2) 25 mcg PO DAILY 07/17/19 [Vitamin D2] Ferrous Sulfate 325 mg PO BID #60 tablet 07/25/19 Carvedilol 25 mg PO BID 08/08/19 Nifedipine [Nifedipine ER] 90 mg PO DAILY 08/08/19 Albuterol 0.083% Nebulizer Malorie 1 neb NEB Q4H PRN 08/09/19 [Ventolin 0.083% Nebulizer Soln -] Aspirin [ASA -] 81 mg PO DAILY tab.chew 08/09/19 Valsartan [Diovan] 80 mg PO DAILY #30 tablet 08/16/19 Fluticasone Propion/Salmeterol 1 each IH BID 08/28/19 [Wixela 250-50 Inhub] ASSESSMENT AND PLAN: 68 year old female with history of Dementia, CRF sec to COPD (on Home O2), Morbid obesity, HTN, CVA (with mild L residual weakness), Gout, recent admissions x2 (last 08/11-08/16) for Chest pain and SOB who presents to the ER for sudden onset chest tightness, without palpitations, nausea, vomiting, lightheadedness, diaphoresis, syncope. 1. Atypical CP, unlikely cardiac ECG - no acute/new ECG changes TropI neg x 2 Telemonitroing and 3rd troponin required. Recent Echo 07/16/19 - normal LV systolic function mild concentric LVH Recent Stress test 08/09/19 - negative for ischemia. Normal EF. If 3rd TropI is negative, will discharge home. 2. MARISOL on CKD - Creat 1.7, baseline 1.1-1.3. patient advised to take Lasix every other day instead of every day until her next PCP or Nephrology appt. 3. HTN - Resume Valsartan, Nifedipine, Carvedilol. 4. Dementia - continue Donepezil. 5. CRF sec to COPD - no evidence of acute exacerbation - continue Fluticasone/ Salmeterol, Albuterol Neb prn. 6. Normocytic Anemia - Stable. Likely multifactorial - Chronic disease/CKD/CJ. On Iron supplementation. Needs further anemia work-up including B12/Folate levels as out-patient. DVT Px - Heparin SQ Dispo - Home if serial tropI and telemonitoring are negative
--- NOTE | 2019-08-28 16:55 | DS ---
Physical Exam: SUBJECTIVE: Patient seen and examined in the morning. No acute events overnight. No complaints of chest pain, shortness of breath, abdominal pain. OBJECTIVE: Vital Signs Period Temp Pulse Resp BP Sys/Christensen Pulse Ox Last 24 Hr 98.5 F-98.7 F 78-83 20-22 128-138/58-68 96-100 PHYSICAL EXAM GENERAL: The patient is awake, alert, and fully oriented, in no acute distress. HEAD: Normal with no signs of trauma. EYES: PERRL, extraocular movements intact, sclera anicteric, conjunctiva clear. ENT: Ears normal, nares patent, oropharynx clear without exudates, moist mucous membranes. NECK: Trachea midline, full range of motion, supple. LUNGS: Breath sounds equal, clear to auscultation bilaterally, no wheezes, no crackles, no accessory muscle use. HEART: Regular rate and rhythm, S1, S2 without murmur, rub or gallop. ABDOMEN: Soft, nontender, nondistended, normoactive bowel sounds, no guarding, no rebound, no hepatosplenomegaly, no masses. EXTREMITIES: 2+ pulses, warm, well-perfused, no edema. +1 pitting edema in the lower extremities. NEUROLOGICAL: Cranial nerves II through XII grossly intact. Normal speech, gait not observed. PSYCH: Normal mood, normal affect. SKIN: Warm, dry, normal turgor, no rashes or lesions noted. LABS Laboratory Results - last 24 hr 08/28/19 08/28/19 08/28/19 01:59 01:59 01:59 WBC 8.0 RBC 3.68 Hgb 9.6 L Hct 30.4 L MCV 82.6 MCH 26.2 MCHC 31.7 L RDW 23.2 H Plt Count 309 MPV 9.1 Absolute Neuts (auto) 5.4 Neutrophils % 67.8 Lymphocytes % 20.5 Monocytes % 6.5 Eosinophils % 3.6 Basophils % 1.6 Nucleated RBC % 0 Hypochromia 1+ Platelet Estimate Adequate Poikilocytosis Few Anisocytosis 2+ Macrocytosis 1+ Spherocytes 2+ PT with INR 12.20 INR 1.03 VBG pH POC VBG pCO2 POC VBG pO2 VBG HCO3 VBG O2 Sat (Mu) VBG Base Excess Sodium 141 Potassium 4.4 Chloride 109 H Carbon Dioxide 27 Anion Gap 5 L BUN 42.4 H Creatinine 1.7 H Est GFR (CKD-EPI)AfAm 34.80 Est GFR (CKD-EPI)NonAf 30.03 Random Glucose 98 Calcium 9.4 Phosphorus Magnesium Total Bilirubin 0.2 AST 12 L ALT 14 Alkaline Phosphatase 100 Creatine Kinase Troponin I B-Natriuretic Peptide 1254.7 H Total Protein 7.2 Albumin 3.0 L 08/28/19 08/28/19 08/28/19 01:59 02:50 09:26 WBC 6.4 RBC 3.42 L Hgb 9.0 L Hct 28.1 L MCV 82.0 MCH 26.4 MCHC 32.2 RDW 23.4 H Plt Count 288 MPV 9.0 Absolute Neuts (auto) Neutrophils % Lymphocytes % Monocytes % Eosinophils % Basophils % Nucleated RBC % Hypochromia Platelet Estimate Poikilocytosis Anisocytosis Macrocytosis Spherocytes PT with INR INR VBG pH 7.38 POC VBG pCO2 44.7 POC VBG pO2 No Result Required. VBG HCO3 25.9 VBG O2 Sat (Mu) 78.6 VBG Base Excess 1.1 Sodium Potassium Chloride Carbon Dioxide Anion Gap BUN Creatinine Est GFR (CKD-EPI)AfAm Est GFR (CKD-EPI)NonAf Random Glucose Calcium Phosphorus Magnesium Total Bilirubin AST ALT Alkaline Phosphatase Creatine Kinase 65 Troponin I 0.03 B-Natriuretic Peptide Total Protein Albumin 08/28/19 08/28/19 09:26 16:05 WBC RBC Hgb Hct MCV MCH MCHC RDW Plt Count MPV Absolute Neuts (auto) Neutrophils % Lymphocytes % Monocytes % Eosinophils % Basophils % Nucleated RBC % Hypochromia Platelet Estimate Poikilocytosis Anisocytosis Macrocytosis Spherocytes PT with INR INR VBG pH POC VBG pCO2 POC VBG pO2 VBG HCO3 VBG O2 Sat (Mu) VBG Base Excess Sodium 139 Potassium 4.2 Chloride 109 H Carbon Dioxide 24 Anion Gap 6 L BUN 37.7 H Creatinine 1.5 H Est GFR (CKD-EPI)AfAm 40.49 Est GFR (CKD-EPI)NonAf 34.93 Random Glucose 104 Calcium 9.2 Phosphorus 3.8 Magnesium 2.1 Total Bilirubin AST ALT Alkaline Phosphatase Creatine Kinase 56 Troponin I 0.03 0.03 B-Natriuretic Peptide Total Protein Albumin HOSPITAL COURSE: Date of Admission:08/28/19 Date of Discharge: 08/28/19 68 year old female with history of Dementia, CRF sec to COPD (on Home O2), Morbid obesity, HTN, CVA (with mild L residual weakness), Gout, recent admissions x2 (last 08/11-08/16) for Chest pain and SOB who presents to the ER for sudden onset chest tightness, without palpitations, nausea, vomiting, lightheadedness, diaphoresis, syncope. Patient had no events on telemetry monitoring and serial troponins were negative. Patient was seen to have elevated creatinine of 1.7 on admission, will follow up with nephrology as outpatient. Minutes to complete discharge: 30 Discharge Summary Problems reviewed: Yes Reason For Visit: SHORTNESS OF BREATH,CHEST PAIN Current Active Problems Anemia (Chronic) CHF (congestive heart failure) (Chronic) Coronary artery disease (Chronic) HTN (hypertension) (Chronic) Morbid obesity (Chronic) Shortness of breath (Chronic) Condition: Good - Instructions Diet, Activity, Other Instructions: You were admitted to the hospital because you felt chest pressure. You were given nebulizer therapy via EMS on the way to the hospital and you felt better. You have been stable since arriving to the hospital. We checked your EKG and your heart enzymes and they were normal. You are stable for discharge. Please continue to take your nebulizer treatment. We have made the following changes to your medication: Please take Lasix 40 mg by mouth every other day Follow up with Dr. Ortega next Tuesday, September 05, 2019 at 2:00 PM to have blood work done (BMP). You will need to have repeat blood work done (BMP) to assess your kidney function. Until that time you must continue taking Lasix every other day. Continue taking all your home medications as prescribed. Please follow up with within 1 week to continue managing your Congestive Heart Failure. Please follow up with Dr. Dickson within 1 week to have lab work completed ( BMP). Please follow up with Dr. Ortega (nephrology) on September 05 @ 2PM. Return to the emergency department if you have chest pain, shortness of breath or worsening of your symptoms . Referrals: Manju Dickson MD [Primary Care Provider] - 1 Week Shaan Ortega MD [Staff Physician] - 09/05/19 2:00 pm Mohan Rosado MD [Staff Physician] - 1 Week Disposition: HOME - Home Medications Comprehensive Discharge Medication List: Ambulatory Orders Allopurinol [Zyloprim -] 100 mg PO DAILY 09/10/18 Donepezil HCl 10 mg PO HS 09/10/18 Calcium Carbonate [Calcium] 600 mg PO DAILY 07/17/19 Ergocalciferol (Vitamin D2) [Vitamin D2] 25 mcg PO DAILY 07/17/19 Ferrous Sulfate 325 mg PO BID #60 tablet 07/25/19 Carvedilol 25 mg PO BID 08/08/19 Nifedipine [Nifedipine ER] 90 mg PO DAILY 08/08/19 Albuterol 0.083% Nebulizer Malorie [Ventolin 0.083% Nebulizer Soln -] 1 neb NEB Q4H PRN 08/09/19 Aspirin [ASA -] 81 mg PO DAILY tab.chew 08/09/19 Valsartan [Diovan] 80 mg PO DAILY #30 tablet 08/16/19 Fluticasone Propion/Salmeterol [Wixela 250-50 Inhub] 1 each IH BID 08/28/19 Furosemide [Lasix -] 40 mg PO Q48H #14 tablet 08/28/19 This patient is new to me today: No Emergency Visit: Yes ED Registration Date: 08/28/19 Care time: The patient presented to the Emergency Department on the above date and was hospitalized for further evaluation of their emergent condition. Critical Care patient: No - Discharge Referral Referred to [facility] No ATTENDING PHYSICIAN STATEMENT I saw and evaluated the patient. I reviewed the resident's note and discussed the case with the resident. I agree with the resident's findings and plan as documented. SUBJECTIVE: OBJECTIVE: ASSESSMENT AND PLAN:
[2019-08-28] MEDS ORDERED: FERROUS SO4 325 MG TABLET (FP) ONE (17:15)
[2019-08-28 17:25] VITALS: BP 135/71; PULSE 77; TEMP 97.9
[2019-08-28] MEDS ORDERED: FERROUS SO4 325 MG TABLET (FP) PO SCH (17:30)
[2019-08-28] MEDS ORDERED: DONEPEZIL HCL 10 MG TABLET (FP) PO SCH (22:00)
== END 2019-08-28 18:00 | disposition home or self-care (01) ==
LOC: JER 00:59 → JERBED 04:40
PROVIDERS: ADMIT Internal Medicine
PROC: 3E013GC Introduction of Other Therapeutic Substance into Subcutaneous Tissue, Percutaneous Approach (ICD-10-PCS; principal; 2019-08-28)
DX: R07.89 Other chest pain (principal); R06.02 Shortness of breath; I12.9 Hypertensive chronic kidney disease with stage 1 through stage 4 chronic kidney disease, or unspecified chronic kidney disease; N18.9 Chronic kidney disease, unspecified; N17.9 Acute kidney failure, unspecified; I11.0 Hypertensive heart disease with heart failure; E78.5 Hyperlipidemia, unspecified; I25.10 Atherosclerotic heart disease of native coronary artery without angina pectoris; F03.90 Unspecified dementia, unspecified severity, without behavioral disturbance, psychotic disturbance, mood disturbance, and anxiety; J44.9 Chronic obstructive pulmonary disease, unspecified; I50.9 Heart failure, unspecified; G40.909 Epilepsy, unspecified, not intractable, without status epilepticus; G47.33 Obstructive sleep apnea (adult) (pediatric); R77.0 Abnormality of albumin; E66.01 Morbid (severe) obesity due to excess calories; Z68.41 Body mass index [BMI] 40.0-44.9, adult; D50.9 Iron deficiency anemia, unspecified; Z82.49 Family history of ischemic heart disease and other diseases of the circulatory system; Z86.73 Personal history of transient ischemic attack (TIA), and cerebral infarction without residual deficits; Z91.013 Allergy to seafood; Z79.82 Long term (current) use of aspirin
CPT/HCPCS: 36415; 71045-TC-FY; 80048; 80053; 82550; 82803; 83735; 83880; 84100; 84484; 85025; 85027; 85610; 93005; 93010; 96372; 99285-25; G0378; J1644

== ENCOUNTER 2019-10-07 02:50 | Inpatient (IN) | payer OTHER ==
[2019-10-07] MEDS ORDERED: FUROSEMIDE 40 MG/4 ML INJECTABLE VIAL IVPUSH ONE (02:55)
--- NOTE | 2019-10-07 02:58 | PDOC ---
Attending Attestation - Resident Resident Name: Natalie Samaniego - HPI HPI: 10/07/19 06:43 Pt presents to the Ed complaining of the acute onset of wheezing and shortness of breath that began this evening. Denies fever or chest pain. Also complains of worsening lower extremity swelling. Patient takes lasix 40 mg every other day and reports compliance. Started on CPAP by EMS with some improvement in her symptoms. - Physicial Exam PE: 10/07/19 06:48 Agree with resident exam. Patient initially presented in moderate distress on bipap, speaking in 1-2 word sentences. + diffuse wheezes bilaterally. + 1 pitting edema to calf bilaterally. 10/07/19 06:49 - Medical Decision Making 10/07/19 06:50 Pt presents to the ED complaining of shortness of breath. Exam and labs are consistent with CHF exacerbation. Will treat with bipap and lasix and admit to medicine.
[2019-10-07 03:39] LABS: BASO % 1.3 % (0-2.0); EOS % 3.9 % (0-4.5); HEMATOCRIT 35.4 % (32.4-45.2); HEMOGLOBIN 11.5 GM/dL (10.7-15.3); LYMPH % 33.7 % (8-40); MCH 27.9 pg (25.7-33.7); MCHC 32.3 g/dl (32.0-36.0); MEAN CELL VOLUME 86.4 fl (80-96); MEAN PLT VOLUME 9.7 fl (7.5-11.1); MONO % 7.1 % (3.8-10.2); PLATELET COUNT 271 K/MM3 (134-434); RDW 23.6 % (11.6-15.6); WHITE BLOOD COUNT 6.7 K/mm3 (4.0-10.0)
[2019-10-07 03:44] LABS: VENOUS PC02 36.1 mmHg (38-52); VENOUS PH 7.46 (7.31-7.41)
[2019-10-07 03:47] LABS: VENOUS PO2 < 49 mmHg (28-48)
--- NOTE | 2019-10-07 03:55 | PDOC ---
History of Present Illness - General Chief Complaint: Congestive Heart Failure Stated Complaint: SOB Time Seen by Provider: 10/07/19 02:58 - History of Present Illness Initial Comments: The pt is a 68F w/ a history of COPD/asthma, HF, CAD, HTN, dementia, and recurrent admissions for COPD vs CHF exacerbations who presents for evaluation of sudden onset SOB tonight. The pt reports feeling dyspnic with some chest discomfort. She endorses recent swelling of her BLE despite Lasix use at home. She was given a combivent and placed on CPAP en route. She reports feeling mildly improved with those interventions. Denies recent fevers/illness, recent cough, chest pain, N/V, dysuria, or changes in sensation 10/07/19 04:46 Past History - Past Medical History Allergies/Adverse Reactions: Allergies Allergy/AdvReac Type Severity Reaction Status Date / Time No Known Drug Allergies Allergy Verified 08/17/19 04:54 Shellfish Allergy Uncoded 08/17/19 04:54 Home Medications: Ambulatory Orders Allopurinol [Zyloprim -] 100 mg PO DAILY 09/10/18 Donepezil HCl 10 mg PO HS 09/10/18 Calcium Carbonate [Calcium] 600 mg PO DAILY 07/17/19 Ergocalciferol (Vitamin D2) [Vitamin D2] 25 mcg PO DAILY 07/17/19 Ferrous Sulfate 325 mg PO BID #60 tablet 07/25/19 Carvedilol 3.125 mg PO BID 08/08/19 Nifedipine [Nifedipine ER] 90 mg PO DAILY 08/08/19 Albuterol 0.083% Nebulizer Malorie [Ventolin 0.083% Nebulizer Soln -] 1 neb NEB Q4H PRN 08/09/19 Aspirin [ASA -] 81 mg PO DAILY tab.chew 08/09/19 Valsartan [Diovan] 80 mg PO DAILY #30 tablet 08/16/19 Fluticasone Propion/Salmeterol [Wixela 250-50 Inhub] 1 each IH BID 08/28/19 Furosemide [Lasix -] 40 mg PO Q48H #14 tablet 08/28/19 Atorvastatin Ca [Lipitor] 80 mg PO HS 10/07/19 Asthma: Yes CVA: Yes COPD: Yes CHF: Yes Dementia: Yes HTN: Yes Hypercholesterolemia: Yes Seizures: Yes (EPILEPTIC SEIZURES) - Immunization History TDAP Vaccination: Yes Immunization Up to Date: Yes - Psycho Social/Smoking Cessation Hx Smoking Status: No Smoking History: Former smoker Have you smoked in the past 12 months: No Number of Cigarettes Smoked Daily: 20 If you are a former smoker, when did you quit?: 2018 Information on smoking cessation initiated: Yes 'Breaking Loose' booklet given: 09/10/18 Hx Alcohol Use: No Drug/Substance Use Hx: No Substance Use Type: None Hx Substance Use Treatment: No Review of Systems - Review of Systems Able to Perform ROS?: Yes Comments:: GENERAL/CONSTITUTIONAL: No fever or chills. No weakness HEAD, EYES, EARS, NOSE AND THROAT: No change in vision. No change in hearing. No sore throat CARDIOVASCULAR: +SOB, +BLE edema RESPIRATORY: Denies cough, hemoptysis GASTROINTESTINAL: No nausea, vomiting, diarrhea or constipation GENITOURINARY: No dysuria, frequency, or change in urination MUSCULOSKELETAL: No joint or muscle pain SKIN: No rash NEUROLOGIC: No headache, vertigo, loss of consciousness, or change in strength/ sensation ENDOCRINE: No increased thirst. No abnormal weight change HEMATOLOGIC/LYMPHATIC: No anemia, easy bleeding, or history of blood clots ALLERGIC/IMMUNOLOGIC: No hives or skin allergy 10/07/19 06:50 Is the patient limited British proficient: No *Physical Exam - Vital Signs Last Vital Signs Temp Pulse Resp BP Pulse Ox 67 22 H 159/76 100 10/07/19 03:03 10/07/19 03:03 10/07/19 03:03 10/07/19 03:03 - Physical Exam GENERAL: Awake, alert, and oriented to person/place/time, in moderate distress HEAD: No signs of trauma, normocephalic, atraumatic EYES: PERRLA, EOMI, sclera anicteric, conjunctiva clear ENT: Hearing grossly normal, nares patent, oropharynx clear without exudates. Moist mucosa LUNGS: Presented on CPAP, b/l crackles appreciated HEART: Regular rate and rhythm, normal S1 and S2, no murmurs appreciated, peripheral pulses normal and equal bilaterally ABDOMEN: Soft, protuberant, nontender, normoactive bowel sounds. No guarding, no rebound EXTREMITIES: Normal inspection, Normal range of motion. BLE edema to knee NEUROLOGICAL: Cranial nerves II through XII grossly intact. Normal speech, residual LUE weakness 2/2 distant CVA SKIN: Warm, Dry 10/07/19 06:51 ED Treatment Course - LABORATORY CBC & Chemistry Diagram: 10/07/19 03:20 10/07/19 03:20 - Medications Given in the ED: ED Medications Discontinued Medications Generic Name Dose Route Start Last Admin Trade Name Nely PRN Reason Stop Dose Admin Furosemide 40 mg 10/07/19 02:55 10/07/19 03:03 Lasix Injection - IVPUSH 10/07/19 02:56 40 mg ONCE ONE Administration Medical Decision Making - Medical Decision Making The pt is a 68F w/ a history of COPD/asthma, HF, CAD, HTN, dementia, and recurrent admissions for COPD vs CHF exacerbations who presents for evaluation of sudden onset SOB tonight. ED Course Pt placed on BiPAP Labs sent ECG CXR ECG w/ sinus rhythm; HR 66; QTc 450; no MATHEUS; no axis deviation; poor baseline, abn ecg CXR w/ evidence of pulmonary vascular congestion No leukocytosis No anemia Lytes unremarkable Cr near baseline LFTs unremarkable Trop I neg BNP elevated to 1125, similar to previous Pt given Lasix 40mg IV once Plan for admission for likely CHF exacerbation Pt appears improved on BiPAP Pt signed out to [facility] Admitting Discharge - Discharge Information Problems reviewed: Yes Clinical Impression/Diagnosis: Shortness of breath CHF (congestive heart failure) Qualifiers: Heart failure type: unspecified Heart failure chronicity: acute on chronic Qualified Code(s): I50.9 - Heart failure, unspecified Condition: Fair - Admission Yes - Follow up/Referral - Patient Discharge Instructions - Post Discharge Activity
[2019-10-07 04:00] LABS: ALBUMIN 3.3 g/dl (3.4-5.0); BILIRUBIN,TOTAL 0.4 mg/dL (0.2-1); BLOOD UREA NITROGEN 32.4 mg/dL (7-18); CREATININE 1.6 mg/dL (0.55-1.3); MAGNESIUM 2.1 mg/dL (1.8-2.4); POTASSIUM 4.3 mmol/L (3.5-5.1); TOT PROT 7.8 g/dl (6.4-8.2)
--- NOTE | 2019-10-07 04:39 | PN ---
Teaching Attending Note Name of Resident: Geronimo Mendoza ATTENDING PHYSICIAN STATEMENT I saw and evaluated the patient. I reviewed the resident's note and discussed the case with the resident. I agree with the resident's findings and plan as documented. SUBJECTIVE: Patient is a 68 year old woman with a PMH of Asthma/COPD (on 2L [place] home O2), CAD , Morbid obesity, HTN, Dementia, TIA, Gout and Multiple recent admissions (this is the 6th admission in less than 3 months for Chest pain/SOB) who presents for shortness of breath and PARSONS for one day. There was associated chest tightness, non-productive cough and orthopnea. Retrosternal chest tightness was without radiation. Family also report that the patient's legs appeared more swollen than usual. She states that she usually requires 2 pillows to sleep and sometimes just sleep in a chair to help with her breathing. She denies diaphoresis, fevers, chills, dizziness, lightheadedness, headaches, nausea, vomiting, abdominal pain, dysuria, hematuria. EMS en route started her on CPAP and gave 1 dose of Combivent. Started on BiPAP in the ER. She states that she felt better after being given the breathing treatment by EMS. She is a former smoker. Denies tobacco, alcohol and illicit drug use. OBJECTIVE: Alert on BiPAP Vital Signs Period Temp Pulse Resp BP Sys/Christensen Pulse Ox Last 24 Hr 67 22 159/76 100-100 HEENT: No Jaundice, eye redness or discharge, PERRLA, EOMI. Normocephalic, atraumatic. External ears are normal and hearing is grossly intact. No nasal discharge. Neck: Supple, nontender. No palpable adenopathy or thyromegaly. No JVD Chest: Good effort. Bibasilar crackles. Clear to auscultation and percussion. Heart: Regular. No S3, rub or murmur Abdomen: Not distended, soft, nontender and no HSM. No rebound or guarding. Normal bowel sounds. Ext: Peripheral pulses intact. Leg edema. Skin: Warm and dry. No petechiae, rash or ecchymosis. Neuro: Alert. Oriented to person and place. Poor memory. CN 2-12 grossly intact. Sensation grossly intact in all four extremities and DTR are symmetric. Psych: Appropriate mood and affect. Good insight. Home Medications Medication Instructions Recorded Allopurinol [Zyloprim -] 100 mg PO DAILY 09/10/18 Donepezil HCl 10 mg PO HS 09/10/18 Calcium Carbonate [Calcium] 600 mg PO DAILY 07/17/19 Ergocalciferol (Vitamin D2) 25 mcg PO DAILY 07/17/19 [Vitamin D2] Ferrous Sulfate 325 mg PO BID #60 tablet 07/25/19 Carvedilol 25 mg PO BID 08/08/19 Nifedipine [Nifedipine ER] 90 mg PO DAILY 08/08/19 Albuterol 0.083% Nebulizer Malorie 1 neb NEB Q4H PRN 08/09/19 [Ventolin 0.083% Nebulizer Soln -] Aspirin [ASA -] 81 mg PO DAILY tab.chew 08/09/19 Valsartan [Diovan] 80 mg PO DAILY #30 tablet 08/16/19 Fluticasone Propion/Salmeterol 1 each IH BID 08/28/19 [Wixela 250-50 Inhub] Furosemide [Lasix -] 40 mg PO Q48H #14 tablet 08/28/19 Abnormal Lab Results 10/07/19 10/07/19 10/07/19 03:20 03:20 03:20 RDW 23.6 H VBG pH POC VBG pCO2 POC VBG pO2 VBG O2 Sat (Mu) VBG Base Excess BUN 32.4 H Creatinine 1.6 H B-Natriuretic Peptide 1125.5 H Albumin 3.3 L 10/07/19 03:20 RDW VBG pH 7.46 H POC VBG pCO2 36.1 L POC VBG pO2 < 49 H VBG O2 Sat (Mu) 66.1 L VBG Base Excess 2.2 H BUN Creatinine B-Natriuretic Peptide Albumin ASSESSMENT AND PLAN: 1. Diastolic CHF exacerbation/Chest pressure - No obvious precipitating factor. Nonadherence with medication and dietary regimen are contributing factors. CXR shows poor inspiration with cardiomegaly, apical atelectasis/scarring, unfolded aorta and hilar prominence. Recent ECHO form 07/17/2019 showed normal LV systolic function and mild concentric LV hypertrophy. UA is pending. Patient has risk factors for CAD. EKG shows NSR with inferior infarct, age undetermined - different from her recent EKGs. Initial troponin is negative. Will admit to telemetry to rule out ACS, give IV lasix, restrict dietary salt intake and get daily standing weight. Will continue comprehensive care for all of patients comorbid conditions including Duoneb PRN for COPD. Consult case management/ social worker palliative care to enroll patient in a VNS or other outpatient CHF home management program to minimize frequent hospitalizations. Initiate intense heart failure/nutrition education for patient and family. 2. Hypoalbuminemia - Possibly due to combined effects of proteinuria, malnutrition and inflammation associated with comorbid chronic conditions. Will ensure adequate dietary protein intake and also consult extrusion press adjuster. 3. CKD/MARISOL? - Has risk factors for CKD. Appears to have superimposed MARISOL possibly due to ?diuresis/diastolic CHF. Will consult nephrology and avoid nephrotoxic agents such as NSAIDS, aminoglycosides, contrast dyes and certain Alternative medicine products. 5. Morbid obesity Counseled on the risks associated with obesity. Will provide patient all the necessary assistance, counseling and positive reinforcement to facilitate weight loss. Consult extrusion press adjuster. 6. Hypertension - Restart suitable outpatient antihypertensive drugs when clinically appropriate. Revise regimen to ensure [id number] excellent BP control and curriculum counselor patient on the injurious effects of uncontrolled hypertension. Nonpharmacologic measures to control hypertension like weight loss , salt restriction and exercise discussed. Importance of adherence to treatment regimen and attainment of normotension emphasized. 7. DVT prophylaxis - Heparin 5000u sq tid. 8. Advance directives - Full code
[2019-10-07] MEDS ORDERED: ALBUTEROL SO4 2.5/IPRATROPIUM 0.5 INH SOL 3 ML VIAL.NEB. NEB PRN ×2 (05:42→20:51)
--- NOTE | 2019-10-07 05:50 | HP ---
CHIEF COMPLAINT: shortness of breath PCP: Dr. Dickson HISTORY OF PRESENT ILLNESS: Renea Darden is a 68 year old female with a past medical history of asthma, CHF, COPD (on home 2L), CAD, HTN, dementia, HLD, gout who presents for shortness of breath. The patient was in her usual state of health until the day of admission when she began to feel increased shortness of breath, chest tightness, cough (non-productive), orthopnea. Daughter who was previously at bedside reported to ED staff that the patient's legs appeared more swollen than usual. She states that she usually requires 2 pillows to sleep and sometimes just sleep in a chair to help with her breathing. Patient stated that she has been drinking 3-4 glasses of water of approx 8-10oz each on top of daily coffee. States she eats what her daughter provides for her. She denied fevers, chills, dizziness, lightheadedness, headaches, nausea, vomiting, abdominal pain , dysuria, hematuria. Patient was seen by EMS in the field and was started on CPAP and given 1 dose of Combivent. Came to ED and started on BiPAP. Patient has had multiple admissions for similar presenting problems in the last year. ER course was notable for: (1) RR 22, 100% sat on BiPAP at FIo2 40 (2) CRE 1.6 (baseline 1.1-1.3), BNP 1125 (3) CXR with small congestive changes and blunting of angles (4) Given 40mg Lasix IV Recent Travel: denies PAST MEDICAL HISTORY: as above PAST SURGICAL HISTORY: hysterectomy Social History: Smoking: former smoker, quit in 2018 Alcohol: denies Drugs: denies Allergies No Known Drug Allergies Allergy (Verified 08/17/19 04:54) Shellfish Allergy (Uncoded 08/17/19 04:54) HOME MEDICATIONS: Home Medications Medication Instructions Recorded Allopurinol [Zyloprim -] 100 mg PO DAILY 09/10/18 Donepezil HCl 10 mg PO HS 09/10/18 Calcium Carbonate [Calcium] 600 mg PO DAILY 07/17/19 Ergocalciferol (Vitamin D2) 25 mcg PO DAILY 07/17/19 [Vitamin D2] Ferrous Sulfate 325 mg PO BID #60 tablet 07/25/19 Carvedilol 3.125 mg PO BID 08/08/19 Nifedipine [Nifedipine ER] 90 mg PO DAILY 08/08/19 Albuterol 0.083% Nebulizer Malorie 1 neb NEB Q4H PRN 08/09/19 [Ventolin 0.083% Nebulizer Soln -] Aspirin [ASA -] 81 mg PO DAILY tab.chew 08/09/19 Valsartan [Diovan] 80 mg PO DAILY #30 tablet 08/16/19 Fluticasone Propion/Salmeterol 1 each IH BID 08/28/19 [Wixela 250-50 Inhub] Furosemide [Lasix -] 40 mg PO Q48H #14 tablet 08/28/19 Atorvastatin Ca [Lipitor] 80 mg PO HS 10/07/19 REVIEW OF SYSTEMS CONSTITUTIONAL: generalized weakness Absent: fever, chills, diaphoresis, malaise, loss of appetite, HEENT: Absent: rhinorrhea, nasal congestion, throat pain, throat swelling, difficulty swallowing, visual changes CARDIOVASCULAR: peripheral edema, chest pain Absent: syncope, palpitations, irregular heart rate, lightheadedness RESPIRATORY: shortness of breath, orthopnea Absent: cough, dyspnea with exertion, wheezing, stridor, hemoptysis GASTROINTESTINAL: Absent: abdominal pain, abdominal distension, nausea, vomiting, diarrhea, constipation GENITOURINARY: Absent: dysuria, frequency, urgency, hesitancy, hematuria, flank pain MUSCULOSKELETAL: Absent: myalgia, arthralgia, joint swelling, back pain, neck pain SKIN: Absent: rash, itching, pallor HEMATOLOGIC/IMMUNOLOGIC: Absent: easy bleeding, easy bruising, lymphadenopathy, frequent infections ENDOCRINE: Absent: unexplained weight gain, unexplained weight loss, heat intolerance, cold intolerance NEUROLOGIC: Absent: headache, focal weakness or paresthesias, dizziness, unsteady gait, seizure PSYCHIATRIC: Absent: anxiety, depression, suicidal or homicidal ideation, hallucinations PHYSICAL EXAMINATION Vital Signs - 24 hr 10/07/19 10/07/19 02:52 03:03 Pulse Rate 67 Respiratory 22 H Rate Blood Pressure 159/76 O2 Sat by Pulse 100 100 Oximetry (%) GENERAL: Awake, alert, and fully oriented, in no acute distress. HEAD: Normal with no signs of trauma. EYES: Pupils equal, round and reactive to light, extraocular movements intact EARS, NOSE, THROAT: On BiPAP. LUNGS: Bibasilar crackles noted. No wheezes auscultated. No accessory muscle use. HEART: Poorly heard heart sounds but noted regular rate and rhythm, normal S1 and S2 without murmur, rub. ABDOMEN: Soft, nontender, obese, normoactive bowel sounds, no guarding, no rebound, no masses. EXTREMITIES: 2+ pulses, warm, well-perfused. No calf tenderness. 1+ peripheral edema just past the ankles. NEUROLOGICAL: Cranial nerves II-XII intact. 5/5 muscle strength bilaterally upper and lower extremities. PSYCHIATRIC: Cooperative. Good eye contact. Appropriate mood and affect. SKIN: Warm, dry, normal turgor, no rashes or lesions noted, normal capillary refill. Laboratory Results - last 24 hr 10/07/19 10/07/19 10/07/19 03:20 03:20 03:20 WBC 6.7 RBC 4.10 Hgb 11.5 Hct 35.4 D MCV 86.4 MCH 27.9 MCHC 32.3 RDW 23.6 H Plt Count 271 MPV 9.7 Absolute Neuts (auto) 3.6 Neutrophils % 54.0 D Lymphocytes % 33.7 D Monocytes % 7.1 Eosinophils % 3.9 Basophils % 1.3 Nucleated RBC % 0 VBG pH POC VBG pCO2 POC VBG pO2 VBG HCO3 VBG O2 Sat (Mu) VBG Base Excess Sodium 142 Potassium 4.3 Chloride 106 Carbon Dioxide 24 Anion Gap 12 BUN 32.4 H Creatinine 1.6 H Est GFR (CKD-EPI)AfAm 37.45 Est GFR (CKD-EPI)NonAf 32.31 Random Glucose 90 Calcium 10.0 Magnesium 2.1 Total Bilirubin 0.4 AST 19 ALT 14 Alkaline Phosphatase 104 Creatine Kinase 174 Creatine Kinase Index 0.8 CK-MB (CK-2) 1.5 Troponin I 0.04 B-Natriuretic Peptide Total Protein 7.8 Albumin 3.3 L 10/07/19 10/07/19 03:20 03:20 WBC RBC Hgb Hct MCV MCH MCHC RDW Plt Count MPV Absolute Neuts (auto) Neutrophils % Lymphocytes % Monocytes % Eosinophils % Basophils % Nucleated RBC % VBG pH 7.46 H POC VBG pCO2 36.1 L POC VBG pO2 < 49 H VBG HCO3 25.4 VBG O2 Sat (Mu) 66.1 L VBG Base Excess 2.2 H Sodium Potassium Chloride Carbon Dioxide Anion Gap BUN Creatinine Est GFR (CKD-EPI)AfAm Est GFR (CKD-EPI)NonAf Random Glucose Calcium Magnesium Total Bilirubin AST ALT Alkaline Phosphatase Creatine Kinase Creatine Kinase Index CK-MB (CK-2) Troponin I B-Natriuretic Peptide 1125.5 H Total Protein Albumin EKG--> NSR, age indeterminate inferor infarct, no ST segment changes QTc 450 ASSESSMENT/PLAN: Renea Darden is a 68 year old female with a past medical history of asthma, CHF, COPD (on home 2L), CAD, HTN, dementia, HLD, gout admitted for CHF decompensation. CHF Decompensation - multiple admission for similar presentations, necessary to assess compliance with diet, medications. - CXR as above - EKG as above, no changes since last admission - Lasix 40mg IV daily, will need optimization of dose - Echo in 07/2019 noting normal EF, LV hypertrophy - Duoneb as needed - BiPAP as needed, continue to wean oxygen requirements - first troponin negative, f/u second - UA - social work consult - dietary consult - strict I+Os - daily weights - fluid and salt restriction - cardiology consulted for optimization of outpatient Lasix dose MARISOL - CRE 1.6, baseline 1.1-1.3 - likely in setting of volume overload - continue to monitor with diuresis - nephrology consulted COPD - continue Duonebs - continue home inhalers HTN - continue home nifedipine, valsartan, coreg Dementia - continue home donepezil Gout - continue home allopurinol Hx of CAD - continue home aspirin DVT Ppx - heparin 5000 units subq tid FEN - no standing fluids - continue to monitor electrolytes and replete as necessary - Sodium controlled diet Dispo - admit to telemetry Family Medical History Family History: Denies Visit type - Emergency Visit Emergency Visit: Yes ED Registration Date: 10/07/19 Care time: The patient presented to the Emergency Department on the above date and was hospitalized for further evaluation of their emergent condition. - New Patient This patient is new to me today: Yes Date on this admission: 10/07/19 - Critical Care Critical Care patient: No
[2019-10-07] MEDS ORDERED: HEPARIN NA (PORCINE) 5,000 UNITS/ML 1ML VIAL ONE (06:46)
[2019-10-07] MEDS: HEPARIN NA (PORCINE) 5,000 UNITS/ML 1ML VIAL SQ SCH ×3 (06:53→21:33)
[2019-10-07] MEDS ORDERED: ACETAMINOPHEN 325 MG TABLET (FP) PO PRN (09:15)
--- NOTE | 2019-10-07 09:19 | CONSULT ---
Consult - text type - Consultation Consultation Note: Renal consult for CKD/MARISOL and fluid overload Coverage for Dr. Ortega This is a 68 year old woman with history of CHF, COPD, Hypertension, Dementia, Gout, ? CKD presents with shortness of breath and noted to have Cr of 1.6. Cr was in the range of 1.5-1.7 in August. Pt reports feeling better after getting IV Lasix. Denies any chest pain, fever, chills, N/V /D, Abdominal pain. + Leg swelling. Denies any NSAID use. Was on Lasix 40mg Q48h. No flank pain. No history of kidney stone. PMhx: as above Allergies: NKDA Family Hx: NC Social Hx: Former smoker ROS: as per HPI, all other pertinent ros negative Home Medications Medication Instructions Recorded Allopurinol [Zyloprim -] 100 mg PO DAILY 09/10/18 Donepezil HCl 10 mg PO HS 09/10/18 Calcium Carbonate [Calcium] 600 mg PO DAILY 07/17/19 Ergocalciferol (Vitamin D2) 25 mcg PO DAILY 07/17/19 [Vitamin D2] Ferrous Sulfate 325 mg PO BID #60 tablet 07/25/19 Carvedilol 3.125 mg PO BID 08/08/19 Nifedipine [Nifedipine ER] 90 mg PO DAILY 08/08/19 Albuterol 0.083% Nebulizer Malorie 1 neb NEB Q4H PRN 08/09/19 [Ventolin 0.083% Nebulizer Soln -] Aspirin [ASA -] 81 mg PO DAILY tab.chew 08/09/19 Valsartan [Diovan] 80 mg PO DAILY #30 tablet 08/16/19 Fluticasone Propion/Salmeterol 1 each IH BID 08/28/19 [Wixela 250-50 Inhub] Furosemide [Lasix -] 40 mg PO Q48H #14 tablet 08/28/19 Atorvastatin Ca [Lipitor] 80 mg PO HS 10/07/19 Vital Signs Temperature 98.1 F 10/07/19 03:10 Pulse Rate 69 10/07/19 07:10 Respiratory Rate 18 10/07/19 07:10 Blood Pressure 156/63 10/07/19 07:10 O2 Sat by Pulse Oximetry (%) 100 10/07/19 07:10 Intake & Output 10/04/19 10/05/19 10/06/19 10/07/19 23:59 23:59 23:59 23:59 Weight 122.47 kg NAD awake and alert neck supple RRR CTA, no rales or wheeze soft NT/ND + edema in LE, no cyanosis or clubbing no bladder distension CBC, BMP 10/07/19 03:20 10/07/19 03:20 Current Medications Albuterol/Ipratropium (Duoneb -) 1 amp NEB RQID PRN PRN Reason: SHORTNESS OF BREATH Allopurinol (Zyloprim -) 100 mg PO DAILY [facility] Aspirin (Asa -) 81 mg PO DAILY [facility] Atorvastatin Calcium (Lipitor -) 80 mg PO HS [facility] [place] Budesonide/Formoterol Fumarate (Symbicort 160/4.5mcg -) 1 puff IH BID [facility] [place] Calcium Carbonate (Os-Yinka 500mg -) 500 mg PO DAILY [facility] [place] Carvedilol (Coreg -) 3.125 mg PO BID [facility] [place] Cholecalciferol (Vitamin D3 -) 1,000 unit PO DAILY [facility] [place] Donepezil HCl (Aricept -) 10 mg PO HS [facility] [place] Ferrous Sulfate (Feosol -) 325 mg PO BID [facility] [place] Furosemide (Lasix Injection -) 40 mg IVPUSH DAILY [facility] Heparin Sodium (Porcine) (Heparin -) 5,000 unit SQ TID [facility] Last Admin: 10/07/19 06:53 Dose: 5,000 unit Nifedipine (Procardia Xl -) 90 mg PO DAILY [facility] [place] Valsartan (Diovan -) 80 mg PO DAILY [facility] 68 year old woman with history of CHF, COPD, Hypertension, Dementia, Gout, ? CKD presents with shortness of breath and noted to have Cr of 1.6. 1. Acute kidney injury vs CKD 2. Acute CHF 3. Hypertension 4. COPD 5. Hx of Gout Clinically improved s/p IV Lasix in the ER. would continue Lasix 40mg IV Daily and monitor for clinical improvement. Will likely need Daily Lasix on discharge. Check Urine studies for FeUrea, UPCR, Urine Eosinphils. Check Renal US Trend renal function, electrolytes and daily weights Continue Aydee for now. Thank you Tono Carmona DO
[2019-10-07] MEDS ORDERED: ACETAMINOPHEN 325 MG TABLET (FP) ONE (09:34)
[2019-10-07] MEDS ORDERED: CALCIUM (OYSTER SHELL) 500 MG TABLET (FP) PO SCH (10:00)
[2019-10-07] MEDS ORDERED: PATIENT'S OWN MEDICATION (NON-FORMULARY) (Fluticasone Propion/Salmeterol [Wixela 250-50 In IH SCH (10:00)
[2019-10-07] MEDS ORDERED: FERROUS SO4 325 MG TABLET (FP) PO SCH (10:00)
[2019-10-07] MEDS ORDERED: CARVEDILOL 3.125 MG TABLET (FP) PO SCH (10:00)
[2019-10-07] MEDS ORDERED: NIFEdipine E.R. 90 MG TABLET (FP) PO SCH (10:00)
[2019-10-07] MEDS ORDERED: PATIENT'S OWN MEDICATION (NON-FORMULARY) (Ferrous Sulfate [Ferrous Sulfate] 325 MG) PO SCH (10:00)
[2019-10-07] MEDS ORDERED: ALLOPURINOL 100 MG TABLET (FP) PO SCH (10:00)
[2019-10-07] MEDS ORDERED: ASPIRIN 81 MG CHEWABLE TABLETS PO SCH (10:00)
[2019-10-07] MEDS ORDERED: ERGOCALCIFEROL 25 MCG PO SCH (10:00)
[2019-10-07] MEDS ORDERED: VALSARTAN 80 MG TABLET (UD) PO SCH (10:00)
[2019-10-07] MEDS ORDERED: FUROSEMIDE 40 MG/4 ML INJECTABLE VIAL IVPUSH SCH (10:00)
[2019-10-07] MEDS ORDERED: PATIENT'S OWN MEDICATION (NON-FORMULARY) (Calcium Carbonate [Calcium] 600 MG) PO SCH (10:00)
[2019-10-07] MEDS ORDERED: BUDESONIDE/FORMETEROL FUMARATE 160/4.5 mcg INHALER IH SCH (10:00)
[2019-10-07] MEDS ORDERED: CHOLECALCIFEROL (VIT D3) 1,000 UNIT (25 MCG) TABLET PO SCH (10:00)
--- NOTE | 2019-10-07 10:59 | CON.CARD ---
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 She complained of chest tightness, nonproductive cough and orthopnea. She denies paroxysmal nocturnal dyspnea or orthopnea. She denies fever or chills. She denies nausea, vomiting, diarrhea or abdominal pain. She denies headache or lightheadedness.She was given CPAP. 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: CVA, Dementia Cardio/Vascular: Yes: CHF (Diastolic dysfunction), HTN, Hyperlipdemia Pulmonary: Yes: Asthma, COPD Gastrointestinal: Yes: Diverticulitis - Past Surgical History Past Surgical History: Yes: Hysterectomy - Alcohol/Substance Use Hx Alcohol Use: No History of Substance Use: reports: None - Smoking History Smoking history: Former smoker Have you smoked in the past 12 months: No Aproximately how many cigarettes per day: 20 If you are a former smoker, when did you quit?: 2018 Home Medications - Allergies Allergies/Adverse Reactions: Allergies Allergy/AdvReac Type Severity Reaction Status Date / Time No Known Drug Allergies Allergy Verified 08/17/19 04:54 Shellfish Allergy Uncoded 08/17/19 04:54 - Home Medications Home Medications: Ambulatory Orders Allopurinol [Zyloprim -] 100 mg PO DAILY 09/10/18 Donepezil HCl 10 mg PO HS 09/10/18 Calcium Carbonate [Calcium] 600 mg PO DAILY 07/17/19 Ergocalciferol (Vitamin D2) [Vitamin D2] 25 mcg PO DAILY 07/17/19 Ferrous Sulfate 325 mg PO BID #60 tablet 07/25/19 Carvedilol 3.125 mg PO BID 08/08/19 Nifedipine [Nifedipine ER] 90 mg PO DAILY 08/08/19 Albuterol 0.083% Nebulizer Malorie [Ventolin 0.083% Nebulizer Soln -] 1 neb NEB Q4H PRN 08/09/19 Aspirin [ASA -] 81 mg PO DAILY tab.chew 08/09/19 Valsartan [Diovan] 80 mg PO DAILY #30 tablet 08/16/19 Fluticasone Propion/Salmeterol [Wixela 250-50 Inhub] 1 each IH BID 08/28/19 Furosemide [Lasix -] 40 mg PO Q48H #14 tablet 08/28/19 Atorvastatin Ca [Lipitor] 80 mg PO HS 10/07/19 Review of Systems - Review of Systems Constitutional: denies: Chills, Fever Cardiovascular: reports: Chest Pain, Shortness of Breath. denies: Palpitations Respiratory: reports: Cough, SOB, SOB on Exertion. denies: Hemoptysis, Orthopnea, PND, Wheezing Gastrointestinal: denies: Abdominal Pain, Constipation, Diarrhea, Melena, Nausea , Rectal Bleeding, Vomiting Genitourinary: denies: Dysuria, Hematuria Musculoskeletal: denies: Joint Pain Neurological: denies: Dizziness, Headache, Seizure, Syncope Vital Signs: Vital Signs Temperature 97.9 F 10/07/19 08:15 Pulse Rate 82 10/07/19 08:15 Respiratory Rate 22 H 10/07/19 08:15 Blood Pressure 148/76 10/07/19 08:15 O2 Sat by Pulse Oximetry (%) 100 10/07/19 08:15 Eyes: Yes: PERRL HENT: Yes: Atraumatic Neck: Yes: Supple Respiratory: Yes: Diminished Gastrointestinal: Yes: Normal Bowel Sounds, Soft. No: Tenderness Cardiovascular: Yes: Regular Rate and Rhythm JVD: No PMI: Non-Displaced Heart Sounds: Yes: S1, S2 Murmur: Yes: Systolic Murmur, Grade 1 Edema: Yes Edema: LLE: Trace, RLE: Trace - Other Data Labs, Other Data: CBC, BMP 10/07/19 03:20 10/07/19 03:20 Troponin, BNP 10/07/19 10/07/19 03:20 03:20 Troponin I 0.04 B-Natriuretic Peptide 1125.5 H NSR with possible inferior infarct Problem List - Problems (1) CHF (congestive heart failure) Code(s): I50.9 - HEART FAILURE, UNSPECIFIED Qualifiers: Heart failure type: unspecified Heart failure chronicity: acute on chronic Qualified Code(s): I50.9 - Heart failure, unspecified (2) Shortness of breath Code(s): R06.02 - SHORTNESS OF BREATH (3) Chest pain Code(s): R07.9 - CHEST PAIN, UNSPECIFIED (4) Anemia Code(s): D64.9 - ANEMIA, UNSPECIFIED Qualifiers: Anemia type: iron deficiency (5) Coronary artery disease Code(s): I25.10 - ATHSCL HEART DISEASE OF [place] CORONARY ARTERY W/O ANG PCTRS Qualifiers: Coronary Disease-Associated Artery/Lesion type: [place] artery [place] vs. transplanted heart: [place] heart Associated angina: without angina Qualified Code(s): I25.10 - Atherosclerotic heart disease of [place] coronary artery without angina pectoris (6) Dementia Code(s): F03.90 - UNSPECIFIED DEMENTIA WITHOUT BEHAVIORAL DISTURBANCE (7) HTN (hypertension) Code(s): I10 - ESSENTIAL (PRIMARY) HYPERTENSION Qualifiers: Hypertension type: unspecified Qualified Code(s): I10 - Essential (primary ) hypertension (8) Respiratory failure with hypoxia Code(s): J96.91 - RESPIRATORY FAILURE, UNSPECIFIED WITH HYPOXIA Qualifiers: Chronicity: acute on chronic Qualified Code(s): J96.21 - Acute and chronic respiratory failure with hypoxia (9) Acute on chronic diastolic heart failure Code(s): I50.33 - ACUTE ON CHRONIC DIASTOLIC (CONGESTIVE) HEART FAILURE (10) CKD (chronic kidney disease) Code(s): N18.9 - CHRONIC KIDNEY DISEASE, UNSPECIFIED Qualifiers: Chronic kidney disease stage: stage 2 (mild) Qualified Code(s): N18.2 - Chronic kidney disease, stage 2 (mild) (11) COPD with exacerbation Code(s): J44.1 - CHRONIC OBSTRUCTIVE PULMONARY DISEASE W (ACUTE) EXACERBATION (12) Cerebrovascular disease Code(s): I67.9 - CEREBROVASCULAR DISEASE, UNSPECIFIED (13) Hypercholesteremia Code(s): E78.00 - PURE HYPERCHOLESTEROLEMIA, UNSPECIFIED Assessment/Plan 1. Shortness of breath due to acute on chronic LV diastolic failure (HFpEF) 2. CAD h/o NE, angina 3. COPD 4. HTN 5. Hypercholesterolemia 6. Cerebrovascular disease 7. Diverticular disease 8. Organic brain/dementia 9. CKD 10. ? TREY PLAN: 1. Rule out NE (so far negative troponin) 2. Continue Carvedilol 3.125 mg BID, Valsartan 80 mg QD and Procardia XL 90 mg QD as tolerated 3. Continue Atorvastatin 80 mg QHS 4. ASA 81 mg QD 5. Bronchodilator, O2 and CPAP 6. Diuretics (IV Lasix) with monitoring renal function and electrolytes Harvinder Staples MD
--- NOTE | 2019-10-07 11:03 | EKG ---
Test Reason : Blood Pressure : / mmHG Vent. Rate : 067 BPM Atrial Rate : 067 BPM P-R Int : 212 ms QRS Dur : 108 ms QT Int : 420 ms P-R-T Axes : 057 047 064 degrees QTc Int : 443 ms SINUS RHYTHM WITH 1ST DEGREE A-V BLOCK INFERIOR INFARCT (CITED ON OR BEFORE 09-SEP-2018) ABNORMAL ECG WHEN COMPARED WITH ECG OF 28-AUG-2019 01:38, NO SIGNIFICANT CHANGE WAS FOUND Confirmed by LUDWIG GORE MD ([id number]) on 10/07/2019 11:03:10 AM Referred By: Confirmed By:LUDWIG GORE MD
[2019-10-07 13:13] LABS: URINE APPEARANCE CLEAR; URINE BILIRUBIN NEGATIVE (NEGATIVE); URINE COLOR YELLOW; URINE GLUCOSE (UA) NEGATIVE (NEGATIVE); URINE KETONE NEGATIVE (NEGATIVE); URINE LEUK ESTERASE NEGATIVE (NEGATIVE); URINE NITRITE NEGATIVE (NEGATIVE); URINE PROTEIN NEGATIVE (NEGATIVE); URINE UROBILINOGEN 0.2 mg/dL (0.2-1.0)
--- NOTE | 2019-10-07 17:46 | PN ---
Progress Note (short form) - Note Progress Note: SUBJECTIVE: Feels better, less SOB, no other complaints. No CP/palpitations/ cough/sputum/fever. OBJECTIVE: Afebrile, Hemodynamically Stable. Last Vital Signs Temp Pulse Resp BP Pulse Ox 98.2 F 70 20 129/61 99 10/07/19 15:00 10/07/19 15:00 10/07/19 15:00 10/07/19 15:00 10/07/19 15:00 HEENT - Atraumatic, Normocephalic Heart - S1, S2, SM Lungs - decreased air entry at bases Abdomen - soft, non-tender. High BMI. Bowel Sounds normal. Extremities - Edema +. No calf tenderness. Laboratory Results - last 24 hr 10/07/19 10/07/19 10/07/19 03:20 03:20 03:20 WBC 6.7 RBC 4.10 Hgb 11.5 Hct 35.4 D MCV 86.4 MCH 27.9 MCHC 32.3 RDW 23.6 H Plt Count 271 MPV 9.7 Absolute Neuts (auto) 3.6 Neutrophils % 54.0 D Lymphocytes % 33.7 D Monocytes % 7.1 Eosinophils % 3.9 Basophils % 1.3 Nucleated RBC % 0 VBG pH POC VBG pCO2 POC VBG pO2 VBG HCO3 VBG O2 Sat (Mu) VBG Base Excess Sodium 142 Potassium 4.3 Chloride 106 Carbon Dioxide 24 Anion Gap 12 BUN 32.4 H Creatinine 1.6 H Est GFR (CKD-EPI)AfAm 37.45 Est GFR (CKD-EPI)NonAf 32.31 Random Glucose 90 Calcium 10.0 Magnesium 2.1 Total Bilirubin 0.4 AST 19 ALT 14 Alkaline Phosphatase 104 Creatine Kinase 174 Creatine Kinase Index 0.8 CK-MB (CK-2) 1.5 Troponin I 0.04 B-Natriuretic Peptide Total Protein 7.8 Albumin 3.3 L Urine Color Urine Appearance Urine pH Ur Specific [place] Urine Protein Urine Glucose (UA) Urine Ketones Urine Blood Urine Nitrite Urine Bilirubin Urine Urobilinogen Ur Leukocyte Esterase Ur Random Creatinine U Random Total Protein Ur Random Urea Nitrogn Urine Creatinine Protein/Creatinin Ratio 10/07/19 10/07/19 10/07/19 03:20 03:20 10:40 WBC RBC Hgb Hct MCV MCH MCHC RDW Plt Count MPV Absolute Neuts (auto) Neutrophils % Lymphocytes % Monocytes % Eosinophils % Basophils % Nucleated RBC % VBG pH 7.46 H POC VBG pCO2 36.1 L POC VBG pO2 < 49 H VBG HCO3 25.4 VBG O2 Sat (Mu) 66.1 L VBG Base Excess 2.2 H Sodium Potassium Chloride Carbon Dioxide Anion Gap BUN Creatinine Est GFR (CKD-EPI)AfAm Est GFR (CKD-EPI)NonAf Random Glucose Calcium Magnesium Total Bilirubin AST ALT Alkaline Phosphatase Creatine Kinase Creatine Kinase Index CK-MB (CK-2) Troponin I 0.03 B-Natriuretic Peptide 1125.5 H Total Protein Albumin Urine Color Urine Appearance Urine pH Ur Specific [place] Urine Protein Urine Glucose (UA) Urine Ketones Urine Blood Urine Nitrite Urine Bilirubin Urine Urobilinogen Ur Leukocyte Esterase Ur Random Creatinine U Random Total Protein Ur Random Urea Nitrogn Urine Creatinine Protein/Creatinin Ratio 10/07/19 10/07/19 10/07/19 12:00 12:00 12:00 WBC RBC Hgb Hct MCV MCH MCHC RDW Plt Count MPV Absolute Neuts (auto) Neutrophils % Lymphocytes % Monocytes % Eosinophils % Basophils % Nucleated RBC % VBG pH POC VBG pCO2 POC VBG pO2 VBG HCO3 VBG O2 Sat (Mu) VBG Base Excess Sodium Potassium Chloride Carbon Dioxide Anion Gap BUN Creatinine Est GFR (CKD-EPI)AfAm Est GFR (CKD-EPI)NonAf Random Glucose Calcium Magnesium Total Bilirubin AST ALT Alkaline Phosphatase Creatine Kinase Creatine Kinase Index CK-MB (CK-2) Troponin I B-Natriuretic Peptide Total Protein Albumin Urine Color Urine Appearance Urine pH Ur Specific [place] Urine Protein Urine Glucose (UA) Urine Ketones Urine Blood Urine Nitrite Urine Bilirubin Urine Urobilinogen Ur Leukocyte Esterase Ur Random Creatinine 18.0 L U Random Total Protein 5.4 Ur Random Urea Nitrogn 161 L Urine Creatinine 18.0 L Protein/Creatinin Ratio 0.3 10/07/19 12:00 WBC RBC Hgb Hct MCV MCH MCHC RDW Plt Count MPV Absolute Neuts (auto) Neutrophils % Lymphocytes % Monocytes % Eosinophils % Basophils % Nucleated RBC % VBG pH POC VBG pCO2 POC VBG pO2 VBG HCO3 VBG O2 Sat (Mu) VBG Base Excess Sodium Potassium Chloride Carbon Dioxide Anion Gap BUN Creatinine Est GFR (CKD-EPI)AfAm Est GFR (CKD-EPI)NonAf Random Glucose Calcium Magnesium Total Bilirubin AST ALT Alkaline Phosphatase Creatine Kinase Creatine Kinase Index CK-MB (CK-2) Troponin I B-Natriuretic Peptide Total Protein Albumin Urine Color Yellow Urine Appearance Clear Urine pH 5.0 D Ur Specific [place] 1.007 L Urine Protein Negative Urine Glucose (UA) Negative Urine Ketones Negative Urine Blood Negative Urine Nitrite Negative Urine Bilirubin Negative Urine Urobilinogen 0.2 Ur Leukocyte Esterase Negative Ur Random Creatinine U Random Total Protein Ur Random Urea Nitrogn Urine Creatinine Protein/Creatinin Ratio Current Medications Generic Name Dose Route Start Last Admin Trade Name Freq PRN Reason Stop Dose Admin Acetaminophen 650 mg 10/07/19 09:15 10/07/19 09:50 Tylenol - PO 650 mg Q6H PRN Administration pain Albuterol/Ipratropium 1 amp 10/07/19 05:42 Duoneb - NEB RQID PRN SHORTNESS OF BREATH Allopurinol 100 mg 10/07/19 10:00 10/07/19 10:45 Zyloprim - PO 100 mg DAILY ARA Administration Aspirin 81 mg 10/07/19 10:00 10/07/19 10:45 Asa - PO 81 mg DAILY ARA Administration Atorvastatin Calcium 80 mg 10/07/19 22:00 Lipitor - PO HS [facility] Budesonide/Formoterol Fumarate 1 puff 10/07/19 10:00 10/07/19 12:00 Symbicort 160/4.5mcg - IH 1 puff BID ARA Administration Calcium Carbonate 500 mg 10/07/19 10:00 10/07/19 10:45 Os-Yinka 500mg - PO 500 mg DAILY ARA Administration Carvedilol 3.125 mg 10/07/19 10:00 10/07/19 10:45 Coreg - PO 3.125 mg BID ARA Administration Cholecalciferol 1,000 unit 10/07/19 10:00 10/07/19 10:45 Vitamin D3 - PO 1,000 unit DAILY ARA Administration Donepezil HCl 10 mg 10/07/19 22:00 Aricept - PO HS [facility] Ferrous Sulfate 325 mg 10/07/19 10:00 10/07/19 10:45 Feosol - PO 325 mg BID ARA Administration Furosemide 40 mg 10/07/19 10:00 10/07/19 09:50 Lasix Injection - IVPUSH 40 mg DAILY ARA Administration Heparin Sodium (Porcine) 5,000 unit 10/07/19 06:00 10/07/19 14:27 Heparin - SQ 5,000 unit TID ARA Administration Nifedipine 90 mg 10/07/19 10:00 10/07/19 12:00 Procardia Xl - PO 90 mg DAILY ARA Administration Valsartan 80 mg 10/07/19 10:00 10/07/19 10:45 Diovan - PO 80 mg DAILY ARA Administration Home Medications Medication Instructions Recorded Allopurinol [Zyloprim -] 100 mg PO DAILY 09/10/18 Donepezil HCl 10 mg PO HS 09/10/18 Calcium Carbonate [Calcium] 600 mg PO DAILY 07/17/19 Ergocalciferol (Vitamin D2) 25 mcg PO DAILY 07/17/19 [Vitamin D2] Ferrous Sulfate 325 mg PO BID #60 tablet 07/25/19 Carvedilol 3.125 mg PO BID 08/08/19 Nifedipine [Nifedipine ER] 90 mg PO DAILY 08/08/19 Albuterol 0.083% Nebulizer Malorie 1 neb NEB Q4H PRN 08/09/19 [Ventolin 0.083% Nebulizer Soln -] Aspirin [ASA -] 81 mg PO DAILY tab.chew 08/09/19 Valsartan [Diovan] 80 mg PO DAILY #30 tablet 08/16/19 Fluticasone Propion/Salmeterol 1 each IH BID 08/28/19 [Wixela 250-50 Inhub] Furosemide [Lasix -] 40 mg PO Q48H #14 tablet 08/28/19 Atorvastatin Ca [Lipitor] 80 mg PO HS 10/07/19 ASSESSMENT/PLAN 68 year old female with Dementia, Asthma, CRF sec to COPD on 2L O2, HTN, HLD, Gout, presents with increasing SOB, LE edema, orthopnea, EKG - NSR, age indeterminate inferior infarct, no ST segment changes QTc 450 1. Acute on Chronic respiratory failure secondary to Acute Diastolic CHF Echo in 07/2019 noting normal EF, LV hypertrophy Off BiPAP, back on O2 via [place] BNP 1125 Continue IV Lasix Daily weight, I/Os, fluid restriction Cardiology consulted 2. MARISOL vs CKD Renal US normal Continue Lasix diuresis and Valsartan for now. Monitor renal function. Nephrology consulted. 3. CRF sec to COPD - on 2L via [place]. Stable. Continue Symbicort. 4. HTN - Continue Nifedipine, Valsartan, Coreg. 5. Dementia - Continue Donepezil. 6. Gout - Continue Allopurinol. 7. Dementia - continue Donepezil. 8. HLD -Continue Statin 9. CJ - continue Ferrous Sulphate 10. CAD s/p [place] - Continue Aspirin, BB, Statin. 11. Cerebrovascular Disease - Continue Aspirin, Statin. DVT Px - Heparin SQ Visit type - Emergency Visit Emergency Visit: Yes ED Registration Date: 10/07/19 Care time: The patient presented to the Emergency Department on the above date and was hospitalized for further evaluation of their emergent condition. - New Patient This patient is new to me today: Yes Date on this admission: 10/07/19 - Critical Care Critical Care patient: No - Discharge Referral Referred to [facility] Med P.C.: No
[2019-10-07] MEDS: CARVEDILOL 3.125 MG TABLET (FP) PO SCH (21:33)
[2019-10-07] MEDS: FERROUS SO4 325 MG TABLET (FP) PO SCH (21:33)
[2019-10-07] MEDS ORDERED: ATORVASTATIN CA 80 MG TABLET (FP) PO SCH (22:00)
[2019-10-07] MEDS ORDERED: DONEPEZIL HCL 10 MG TABLET (FP) PO SCH ×2 (22:00)
[2019-10-07] MEDS: BUDESONIDE/FORMETEROL FUMARATE 160/4.5 mcg INHALER IH SCH (23:45)
[2019-10-08] MEDS: HEPARIN NA (PORCINE) 5,000 UNITS/ML 1ML VIAL SQ SCH ×2 (05:36→13:10)
[2019-10-08 07:10] LABS: BASO % 0.7 % (0-2.0); EOS % 1.6 % (0-4.5); HEMATOCRIT 33.3 % (32.4-45.2); HEMOGLOBIN 10.9 GM/dL (10.7-15.3); LYMPH % 31.7 % (8-40); MCH 28.1 pg (25.7-33.7); MCHC 32.6 g/dl (32.0-36.0); MEAN CELL VOLUME 86.1 fl (80-96); MEAN PLT VOLUME 9.2 fl (7.5-11.1); MONO % 7.2 % (3.8-10.2); NEUT % 58.8 % (42.8-82.8); PLATELET COUNT 233 K/MM3 (134-434); RBC 3.87 M/mm3 (3.60-5.2); RDW 23.3 % (11.6-15.6); WHITE BLOOD COUNT 7.4 K/mm3 (4.0-10.0)
[2019-10-08 07:41] LABS: BILIRUBIN,TOTAL 0.3 mg/dL (0.2-1); CALCIUM 9.4 mg/dL (8.5-10.1); CREATININE 1.7 mg/dL (0.55-1.3); MAGNESIUM 2.4 mg/dL (1.8-2.4); PHOSPHOROUS 4.2 mg/dL (2.5-4.9); POTASSIUM 3.6 mmol/L (3.5-5.1); TOT PROT 6.9 g/dl (6.4-8.2)
--- NOTE | 2019-10-08 09:31 | PN ---
Progress Note, Physician History of Present Illness: Denies shortness of breath, cough or chest pain. OOB to chair. - Current Medication List Current Medications: Active Medications Acetaminophen (Tylenol -) 650 mg PO Q6H PRN PRN Reason: pain Last Admin: 10/07/19 09:50 Dose: 650 mg Albuterol/Ipratropium (Duoneb -) 1 amp NEB Q6H PRN PRN Reason: SHORTNESS OF BREATH Allopurinol (Zyloprim -) 100 mg PO DAILY [facility] Aspirin (Asa -) 81 mg PO DAILY [facility] Atorvastatin Calcium (Lipitor -) 80 mg PO HS [facility] Last Admin: 10/07/19 21:33 Dose: 80 mg Budesonide/Formoterol Fumarate (Symbicort 160/4.5mcg -) 1 puff IH BID [facility] Last Admin: 10/07/19 23:45 Dose: 1 puff Calcium Carbonate (Os-Yinka 500mg -) 500 mg PO DAILY [facility] Carvedilol (Coreg -) 3.125 mg PO BID [facility] Last Admin: 10/07/19 21:33 Dose: 3.125 mg Cholecalciferol (Vitamin D3 -) 1,000 unit PO DAILY [facility] Donepezil HCl (Aricept -) 10 mg PO HS [facility] Last Admin: 10/07/19 21:33 Dose: 10 mg Ferrous Sulfate (Feosol -) 325 mg PO BID [facility] Last Admin: 10/07/19 21:33 Dose: 325 mg Furosemide (Lasix Injection -) 40 mg IVPUSH DAILY [facility] Heparin Sodium (Porcine) (Heparin -) 5,000 unit SQ TID [facility] Last Admin: 10/08/19 05:36 Dose: 5,000 unit Nifedipine (Procardia Xl -) 90 mg PO DAILY [facility] Valsartan (Diovan -) 80 mg PO DAILY [facility] - Objective Vital Signs: Vital Signs Temperature 98 F 10/08/19 08:54 Pulse Rate 62 10/08/19 08:54 Respiratory Rate 20 10/08/19 08:54 Blood Pressure 124/53 L 10/08/19 08:54 O2 Sat by Pulse Oximetry (%) 98 10/07/19 21:00 Constitutional: Yes: No Distress, Calm Neck: Yes: Supple Cardiovascular: Yes: Regular Rate and Rhythm Respiratory: Yes: Regular, Diminished, On Nasal O2 Gastrointestinal: Yes: Normal Bowel Sounds, Soft, Abdomen, Obese Edema: Yes Edema: LLE: Trace, RLE: Trace Labs: CBC, BMP 10/08/19 06:30 10/08/19 06:30 - ....Imaging EKG: Report Reviewed (Tele: NSR) Problem List - Problems (1) Shortness of breath Code(s): R06.02 - SHORTNESS OF BREATH (2) Coronary artery disease Code(s): I25.10 - ATHSCL HEART DISEASE OF [place] CORONARY ARTERY W/O ANG PCTRS Qualifiers: Coronary Disease-Associated Artery/Lesion type: [place] artery [place] vs. transplanted heart: [place] heart Associated angina: without angina Qualified Code(s): I25.10 - Atherosclerotic heart disease of [place] coronary artery without angina pectoris (3) HTN (hypertension) Code(s): I10 - ESSENTIAL (PRIMARY) HYPERTENSION Qualifiers: Hypertension type: essential hypertension Qualified Code(s): I10 - Essential (primary) hypertension (4) Acute on chronic diastolic heart failure Code(s): I50.33 - ACUTE ON CHRONIC DIASTOLIC (CONGESTIVE) HEART FAILURE (5) CKD (chronic kidney disease) Code(s): N18.9 - CHRONIC KIDNEY DISEASE, UNSPECIFIED Qualifiers: Chronic kidney disease stage: stage 2 (mild) Qualified Code(s): N18.2 - Chronic kidney disease, stage 2 (mild) (6) Hypercholesteremia Code(s): E78.00 - PURE HYPERCHOLESTEROLEMIA, UNSPECIFIED (7) Old inferolateral myocardial infarction Code(s): I25.2 - OLD MYOCARDIAL INFARCTION Assessment/Plan 08/09/2019 Lexiscan Myoview: No ischemia, LVEF 60% 07/17/2019 Echo: Normal LV fxn, mild cLVH, normal RV size and fxn, mod LAE 07/2019 Echo [facility]: Normal LV size and fxn inferolateral and basal inferior RWMA 2012 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 Acute on chronic LV diastolic failure (HFpEF) resolving 2. CAD s/p OR with PROTECTION ANALYST of RCA 3. COPD 4. HTN 5. Hypercholesterolemia 6. Cerebrovascular disease 7. Diverticular disease 8. Organic brain/dementia 9. Acute on CKD 10. OSAS 11. 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 Oral diuresis with monitor diuretic response, renal fxn and electrolytes 2. Increase Carvedilol 6.25 mg BID, Valsartan 80 mg QD, Lipitor 80 qd, ASA 81 qd and Procardia XL 90 mg QD as tolerated 3. Bronchodilator, O2 to keep SpO2 >90% and CPAP as needed 4. Sleep study and PFTs as outpatient 5. DVT prophylaxis
[2019-10-08] MEDS ORDERED: NIFEdipine E.R. 90 MG TABLET (FP) PO SCH (10:00)
[2019-10-08] MEDS ORDERED: FUROSEMIDE 40 MG/4 ML INJECTABLE VIAL IVPUSH SCH (10:00)
[2019-10-08] MEDS ORDERED: CHOLECALCIFEROL (VIT D3) 1,000 UNIT (25 MCG) TABLET PO SCH (10:00)
[2019-10-08] MEDS ORDERED: VALSARTAN 80 MG TABLET (UD) PO SCH (10:00)
[2019-10-08] MEDS ORDERED: CALCIUM (OYSTER SHELL) 500 MG TABLET (FP) PO SCH (10:00)
[2019-10-08] MEDS ORDERED: ASPIRIN 81 MG CHEWABLE TABLETS PO SCH (10:00)
[2019-10-08] MEDS ORDERED: ALLOPURINOL 100 MG TABLET (FP) PO SCH (10:00)
[2019-10-08] MEDS: FERROUS SO4 325 MG TABLET (FP) PO SCH (10:12)
[2019-10-08] MEDS: CARVEDILOL 3.125 MG TABLET (FP) PO SCH (10:13)
[2019-10-08] MEDS: BUDESONIDE/FORMETEROL FUMARATE 160/4.5 mcg INHALER IH SCH (10:25)
--- NOTE | 2019-10-08 11:27 | PN ---
Progress Note, Physician History of Present Illness: Pt seen and examined at bedside. She is awake and alert. She feels that her breathing is improved today. She is on home oxygen at home. - Current Medication List Current Medications: Active Medications Acetaminophen (Tylenol -) 650 mg PO Q6H PRN PRN Reason: pain Last Admin: 10/07/19 09:50 Dose: 650 mg Albuterol/Ipratropium (Duoneb -) 1 amp NEB Q6H PRN PRN Reason: SHORTNESS OF BREATH Allopurinol (Zyloprim -) 100 mg PO DAILY [facility] Last Admin: 10/08/19 10:13 Dose: 100 mg Aspirin (Asa -) 81 mg PO DAILY [facility] Last Admin: 10/08/19 10:13 Dose: 81 mg Atorvastatin Calcium (Lipitor -) 80 mg PO HS [facility] Last Admin: 10/07/19 21:33 Dose: 80 mg Budesonide/Formoterol Fumarate (Symbicort 160/4.5mcg -) 1 puff IH BID [facility] Last Admin: 10/08/19 10:25 Dose: 1 puff Calcium Carbonate (Os-Yinka 500mg -) 500 mg PO DAILY [facility] Last Admin: 10/08/19 10:12 Dose: 500 mg Carvedilol (Coreg -) 3.125 mg PO BID [facility] Last Admin: 10/08/19 10:13 Dose: 3.125 mg Cholecalciferol (Vitamin D3 -) 1,000 unit PO DAILY [facility] Last Admin: 10/08/19 10:12 Dose: 1,000 unit Donepezil HCl (Aricept -) 10 mg PO HS [facility] Last Admin: 10/07/19 21:33 Dose: 10 mg Ferrous Sulfate (Feosol -) 325 mg PO BID [facility] Last Admin: 10/08/19 10:12 Dose: 325 mg Furosemide (Lasix -) 40 mg PO DAILY [facility] Heparin Sodium (Porcine) (Heparin -) 5,000 unit SQ TID [facility] Last Admin: 10/08/19 05:36 Dose: 5,000 unit Nifedipine (Procardia Xl -) 90 mg PO DAILY [facility] Last Admin: 10/08/19 10:12 Dose: 90 mg Valsartan (Diovan -) 80 mg PO DAILY [facility] Last Admin: 10/08/19 10:12 Dose: 80 mg - Objective Vital Signs: Vital Signs Temperature 98 F 10/08/19 08:54 Pulse Rate 62 10/08/19 08:54 Respiratory Rate 20 10/08/19 08:54 Blood Pressure 124/53 L 10/08/19 08:54 O2 Sat by Pulse Oximetry (%) 97 10/08/19 09:00 Constitutional: Yes: Calm Eyes: Yes: Conjunctiva Clear HENT: Yes: Atraumatic Cardiovascular: Yes: S1, S2 Respiratory: Yes: On Nasal O2 Gastrointestinal: Yes: Soft Genitourinary: Yes: WNL Musculoskeletal: Yes: WNL Edema: Yes Edema: LLE: 1+, RLE: 1+ Neurological: Yes: Oriented Psychiatric: Yes: Oriented Labs: CBC, BMP 10/08/19 06:30 10/08/19 06:30 Assessment/Plan Current Medications Generic Name Dose Route Start Last Admin Trade Name Freq PRN Reason Stop Dose Admin Acetaminophen 650 mg 10/07/19 09:15 10/07/19 09:50 Tylenol - PO 650 mg Q6H PRN Administration pain Albuterol/Ipratropium 1 amp 10/07/19 20:51 Duoneb - NEB Q6H PRN SHORTNESS OF BREATH Allopurinol 100 mg 10/08/19 10:00 10/08/19 10:13 Zyloprim - PO 100 mg DAILY ARA Administration Aspirin 81 mg 10/08/19 10:00 10/08/19 10:13 Asa - PO 81 mg DAILY ARA Administration Atorvastatin Calcium 80 mg 10/07/19 22:00 10/07/19 21:33 Lipitor - PO 80 mg HS ARA Administration Budesonide/Formoterol Fumarate 1 puff 10/07/19 22:00 10/08/19 10:25 Symbicort 160/4.5mcg - IH 1 puff BID ARA Administration Calcium Carbonate 500 mg 10/08/19 10:00 10/08/19 10:12 Os-Yinka 500mg - PO 500 mg DAILY ARA Administration Carvedilol 3.125 mg 10/07/19 22:00 10/08/19 10:13 Coreg - PO 3.125 mg BID ARA Administration Cholecalciferol 1,000 unit 10/08/19 10:00 10/08/19 10:12 Vitamin D3 - PO 1,000 unit DAILY ARA Administration Donepezil HCl 10 mg 10/07/19 22:00 10/07/19 21:33 Aricept - PO 10 mg HS ARA Administration Ferrous Sulfate 325 mg 10/07/19 22:00 10/08/19 10:12 Feosol - PO 325 mg BID ARA Administration Furosemide 40 mg 10/09/19 10:00 Lasix - PO DAILY ARA Heparin Sodium (Porcine) 5,000 unit 10/07/19 22:00 10/08/19 05:36 Heparin - SQ 5,000 unit TID ARA Administration Nifedipine 90 mg 10/08/19 10:00 10/08/19 10:12 Procardia Xl - PO 90 mg DAILY ARA Administration Valsartan 80 mg 10/08/19 10:00 10/08/19 10:12 Diovan - PO 80 mg DAILY ARA Administration Laboratory Tests 10/07/19 10/07/19 03:20 12:00 B-Natriuretic Peptide 1125.5 H Urine Protein Negative Urine Blood Negative 1. CKD 2. Acute CHF 3. Hypertension 4. COPD n home oxygen 5. Hx of Gout Plan - cont with lasix at daily dosing - ua neg for blood or protein - renal ultrasound reviewed - discussed with medical team - will need outpt follow up - pt already on home oxygen
--- NOTE | 2019-10-08 12:36 | PN ---
Teaching Attending Note Name of Resident: Geronimo Mendoza ATTENDING PHYSICIAN STATEMENT I saw and evaluated the patient. I reviewed the resident's note and discussed the case with the resident. I agree with the resident's findings and plan as documented. SUBJECTIVE: Feels better, SOB resolved, no other complaints. LE edema better than usual as per patient. No CP/palpitations/cough/sputum/fever. OBJECTIVE: Afebrile, Hemodynamically Stable. Comfortable on 2L O2 via NC. Last Vital Signs Temp Pulse Resp BP Pulse Ox 98 F 62 20 124/53 L 97 10/08/19 08:54 10/08/19 08:54 10/08/19 08:54 10/08/19 08:54 10/08/19 09:00 Heart - S1, S2, SM Lungs - mildly decreased air entry at bases Abdomen - soft, non-tender. High BMI. Bowel Sounds normal. Extremities - Edema +. No calf tenderness. Laboratory Results - last 24 hr 10/07/19 10/07/19 10/07/19 12:00 12:00 12:00 WBC RBC Hgb Hct MCV MCH MCHC RDW Plt Count MPV Absolute Neuts (auto) Neutrophils % Lymphocytes % Monocytes % Eosinophils % Basophils % Nucleated RBC % Sodium Potassium Chloride Carbon Dioxide Anion Gap BUN Creatinine Est GFR (CKD-EPI)AfAm Est GFR (CKD-EPI)NonAf Random Glucose Calcium Phosphorus Magnesium Total Bilirubin AST ALT Alkaline Phosphatase Creatine Kinase Troponin I Total Protein Albumin Urine Color Urine Appearance Urine pH Ur Specific [place] Urine Protein Urine Glucose (UA) Urine Ketones Urine Blood Urine Nitrite Urine Bilirubin Urine Urobilinogen Ur Leukocyte Esterase Ur Random Creatinine 18.0 L U Random Total Protein 5.4 Ur Random Urea Nitrogn 161 L Urine Creatinine 18.0 L Protein/Creatinin Ratio 0.3 10/07/19 10/07/19 10/08/19 12:00 18:54 06:30 WBC 7.4 RBC 3.87 Hgb 10.9 Hct 33.3 MCV 86.1 MCH 28.1 MCHC 32.6 RDW 23.3 H Plt Count 233 MPV 9.2 Absolute Neuts (auto) 4.4 Neutrophils % 58.8 Lymphocytes % 31.7 Monocytes % 7.2 Eosinophils % 1.6 Basophils % 0.7 Nucleated RBC % 0 Sodium Potassium Chloride Carbon Dioxide Anion Gap BUN Creatinine Est GFR (CKD-EPI)AfAm Est GFR (CKD-EPI)NonAf Random Glucose Calcium Phosphorus Magnesium Total Bilirubin AST ALT Alkaline Phosphatase Creatine Kinase 129 Troponin I 0.03 Total Protein Albumin Urine Color Yellow Urine Appearance Clear Urine pH 5.0 D Ur Specific [place] 1.007 L Urine Protein Negative Urine Glucose (UA) Negative Urine Ketones Negative Urine Blood Negative Urine Nitrite Negative Urine Bilirubin Negative Urine Urobilinogen 0.2 Ur Leukocyte Esterase Negative Ur Random Creatinine U Random Total Protein Ur Random Urea Nitrogn Urine Creatinine Protein/Creatinin Ratio 10/08/19 06:30 WBC RBC Hgb Hct MCV MCH MCHC RDW Plt Count MPV Absolute Neuts (auto) Neutrophils % Lymphocytes % Monocytes % Eosinophils % Basophils % Nucleated RBC % Sodium 139 Potassium 3.6 Chloride 105 Carbon Dioxide 28 Anion Gap 6 L BUN 42.0 H Creatinine 1.7 H Est GFR (CKD-EPI)AfAm 34.80 Est GFR (CKD-EPI)NonAf 30.03 Random Glucose 96 Calcium 9.4 Phosphorus 4.2 Magnesium 2.4 Total Bilirubin 0.3 AST 14 L ALT 14 Alkaline Phosphatase 91 Creatine Kinase Troponin I Total Protein 6.9 Albumin 3.0 L Urine Color Urine Appearance Urine pH Ur Specific [place] Urine Protein Urine Glucose (UA) Urine Ketones Urine Blood Urine Nitrite Urine Bilirubin Urine Urobilinogen Ur Leukocyte Esterase Ur Random Creatinine U Random Total Protein Ur Random Urea Nitrogn Urine Creatinine Protein/Creatinin Ratio Current Medications Generic Name Dose Route Start Last Admin Trade Name Freq PRN Reason Stop Dose Admin Acetaminophen 650 mg 10/07/19 09:15 10/07/19 09:50 Tylenol - PO 650 mg Q6H PRN Administration pain Albuterol/Ipratropium 1 amp 10/07/19 20:51 Duoneb - NEB Q6H PRN SHORTNESS OF BREATH Allopurinol 100 mg 10/08/19 10:00 10/08/19 10:13 Zyloprim - PO 100 mg DAILY ARA Administration Aspirin 81 mg 10/08/19 10:00 10/08/19 10:13 Asa - PO 81 mg DAILY ARA Administration Atorvastatin Calcium 80 mg 10/07/19 22:00 10/07/19 21:33 Lipitor - PO 80 mg HS ARA Administration Budesonide/Formoterol Fumarate 1 puff 10/07/19 22:00 10/08/19 10:25 Symbicort 160/4.5mcg - IH 1 puff BID ARA Administration Calcium Carbonate 500 mg 10/08/19 10:00 10/08/19 10:12 Os-Yinka 500mg - PO 500 mg DAILY ARA Administration Carvedilol 3.125 mg 10/07/19 22:00 10/08/19 10:13 Coreg - PO 3.125 mg BID ARA Administration Cholecalciferol 1,000 unit 10/08/19 10:00 10/08/19 10:12 Vitamin D3 - PO 1,000 unit DAILY ARA Administration Donepezil HCl 10 mg 10/07/19 22:00 10/07/19 21:33 Aricept - PO 10 mg HS ARA Administration Ferrous Sulfate 325 mg 10/07/19 22:00 10/08/19 10:12 Feosol - PO 325 mg BID ARA Administration Furosemide 40 mg 10/09/19 10:00 Lasix - PO DAILY [facility] Heparin Sodium (Porcine) 5,000 unit 10/07/19 22:00 10/08/19 05:36 Heparin - SQ 5,000 unit TID ARA Administration Nifedipine 90 mg 10/08/19 10:00 10/08/19 10:12 Procardia Xl - PO 90 mg DAILY ARA Administration Valsartan 80 mg 10/08/19 10:00 10/08/19 10:12 Diovan - PO 80 mg DAILY ARA Administration Home Medications Medication Instructions Recorded Allopurinol [Zyloprim -] 100 mg PO DAILY 09/10/18 Donepezil HCl 10 mg PO HS 09/10/18 Calcium Carbonate [Calcium] 600 mg PO DAILY 07/17/19 Ergocalciferol (Vitamin D2) 25 mcg PO DAILY 07/17/19 [Vitamin D2] Ferrous Sulfate 325 mg PO BID #60 tablet 07/25/19 Carvedilol 3.125 mg PO BID 08/08/19 Nifedipine [Nifedipine ER] 90 mg PO DAILY 08/08/19 Albuterol 0.083% Nebulizer Malorie 1 neb NEB Q4H PRN 08/09/19 [Ventolin 0.083% Nebulizer Soln -] Aspirin [ASA -] 81 mg PO DAILY tab.chew 08/09/19 Valsartan [Diovan] 80 mg PO DAILY #30 tablet 08/16/19 Fluticasone Propion/Salmeterol 1 each IH BID 08/28/19 [Wixela 250-50 Inhub] Furosemide [Lasix -] 40 mg PO Q48H #14 tablet 08/28/19 Atorvastatin Ca [Lipitor] 80 mg PO HS 10/07/19 ASSESSMENT/PLAN 68 year old female with Dementia, Asthma, CRF sec to COPD on 2L O2, HTN, HLD, Gout, presents with increasing SOB, LE edema, orthopnea, EKG - NSR, age indeterminate inferior infarct, no ST segment changes QTc 450 1. Acute on Chronic respiratory failure secondary to Acute Diastolic CHF Echo in 07/2019 noting normal EF, LV hypertrophy Off BiPAP, back on O2 via NC BNP 1125 IV Lasix transitioned to oral daily dosing (normally on q48h dosing at home). Cardiology to continue to follow as out-patient Pulm referral on DC for sleep study and PFTs as out-patient 2. MARISOL vs CKD Renal US normal Continue Lasix diuresis and Valsartan for now. Monitor renal function - repeat Labs 10/12/19 Nephrology to continue to follow as out-patient. 3. CRF sec to COPD - on 2L via NC. Stable. Continue Symbicort. 4. HTN - Continue Nifedipine, Valsartan, Coreg (dose increased to 6.25mg BID). 5. Dementia - Continue Donepezil. 6. Gout - Continue Allopurinol. 7. Dementia - continue Donepezil. 8. HLD -Continue Statin 9. CJ - continue Ferrous Sulphate 10. CAD s/p [place] - Continue Aspirin, BB, Statin. 11. Cerebrovascular Disease - Continue Aspirin, Statin. Adequately diuresed, medically optimized. For daily lasix at home with renal function check 10/12/19 and Cardio, Renal, Pulm out-patient follow up.
[2019-10-08 14:12] VITALS: BP 125/45; PULSE 60; TEMP 97.6
[2019-10-08 14:32] VITALS: BMI 40.8
--- NOTE | 2019-10-08 15:06 | DS ---
Physical Exam: SUBJECTIVE: Patient seen and examined at the bedside. Stated that she felt a lot better and her breathing improved. Denied cp, sob, abd pain, n/v/c/d, cough , dizziness, lightheadedness, fever, chills, numbness, tingling. OBJECTIVE: Vital Signs Period Temp Pulse Resp BP Sys/Christensen Pulse Ox Last 24 Hr 97.5 F-98.6 F 60-84 15-24 122-144/45-75 97-100 PHYSICAL EXAM GENERAL: Awake, alert, and fully oriented, in no acute distress. HEAD: Normal with no signs of trauma. EYES: Pupils equal, round and reactive to light, extraocular movements intact EARS, NOSE, THROAT: Oropharynx without exudates, moist mucous membranes. LUNGS: Mild bibasilar crackles noted. No wheezes auscultated. No accessory muscle use. HEART:Regular rate and rhythm, normal S1 and S2 without murmur, rub. ABDOMEN: Soft, nontender, obese, normoactive bowel sounds, no guarding, no rebound, no masses. EXTREMITIES: 2+ pulses, warm, well-perfused. No calf tenderness. Trace peripheral edema. NEUROLOGICAL: Cranial nerves II-XII intact. 5/5 muscle strength bilaterally upper and lower extremities. PSYCHIATRIC: Cooperative. Good eye contact. Appropriate mood and affect. SKIN: Warm, dry, normal turgor, no rashes or lesions noted, normal capillary refill. LABS Laboratory Results - last 24 hr 10/07/19 10/08/19 10/08/19 18:54 06:30 06:30 WBC 7.4 RBC 3.87 Hgb 10.9 Hct 33.3 MCV 86.1 MCH 28.1 MCHC 32.6 RDW 23.3 H Plt Count 233 MPV 9.2 Absolute Neuts (auto) 4.4 Neutrophils % 58.8 Lymphocytes % 31.7 Monocytes % 7.2 Eosinophils % 1.6 Basophils % 0.7 Nucleated RBC % 0 Sodium 139 Potassium 3.6 Chloride 105 Carbon Dioxide 28 Anion Gap 6 L BUN 42.0 H Creatinine 1.7 H Est GFR (CKD-EPI)AfAm 34.80 Est GFR (CKD-EPI)NonAf 30.03 Random Glucose 96 Calcium 9.4 Phosphorus 4.2 Magnesium 2.4 Total Bilirubin 0.3 AST 14 L ALT 14 Alkaline Phosphatase 91 Creatine Kinase 129 Troponin I 0.03 Total Protein 6.9 Albumin 3.0 L HOSPITAL COURSE: Renea Darden is a 68 year old female with a past medical history of asthma, CHF, COPD (on home 2L), CAD, HTN, dementia, HLD, gout admitted for CHF decompensation. Was started on IV Lasix and will be transitioned to PO Lasix 40mg daily. Patient's breathing status improved and she was taken off of BiPaP and put back on her home oxygen. Was educated on limiting fluid and salt intake. Patient was seen by cardiology who recommended for her to follow up outpatient, to have sleep study, PFTs, and O2 as needed. Patient was seen by nephrology who recommended for the patient to have oral diuresis and to follow up with the outpatient. Patient is advised to have pulmonary function tests, sleep study, to have kidney function test in 1 week, start Lasix 40mg PO daily, and to follow up with her PCP, sliver lapper, professor of special education, and patient coordinator. Family and patient were spoken to regarding the plan, were in agreement, and reiterated it. Patient was discharged in stable medical condition. Date of Admission:10/07/19 Date of Discharge: 10/08/19 Minutes to complete discharge: 35 Discharge Summary Problems reviewed: Yes Reason For Visit: CORONARY ARTERIARY DISEASE,CONGESTIVE HEART Current Active Problems CHF (congestive heart failure) (Chronic) Shortness of breath (Chronic) Condition: Stable - Instructions Diet, Activity, Other Instructions: You were admitted for shortness of breath and increased amount of fluid in your legs. You were given medications to remove fluid from your lungs and legs and you will continue to take medications at home. MEDICATIONS START to take Lasix 40mg every day. Continue to take all of your other home medications as prescribed. REFERRALS Please see your primary care doctor, Dr. Manju Dickson, within 1 week. Please see your sliver lapper, Dr. Shaan Ortega, within 1 week. Please see your professor of special education, Dr. Mohan Rosado, within 1 week. Please see the patient coordinator, Dr. Mir Ghosh, within 1 week. SPECIAL INSTRUCTIONS You will need to have kidney function tests in 1 week, you may obtain these through your primary care doctor. You are advised to see the patient coordinator to have a sleep study and pulmonary function tests. If you have any symptoms of shortness of breath, chest pain, fevers, increased cough and sputum production, increased fluid in your legs, increased confusion, or any other general feelings of unwellness, please call 911 or go to your nearest emergency room. Referrals: Timothy Jin MD [Staff Physician] - 1 Week Manju Dickson MD [Non Staff, Medical] - 1 Week Shaan Ortega MD [Staff Physician] - 1 Week Mohan Rosado MD [Staff Physician] - 1 Week Disposition: HOME - Home Medications Comprehensive Discharge Medication List: Ambulatory Orders Allopurinol [Zyloprim -] 100 mg PO DAILY 09/10/18 Donepezil HCl 10 mg PO HS 09/10/18 Calcium Carbonate [Calcium] 600 mg PO DAILY 07/17/19 Ergocalciferol (Vitamin D2) [Vitamin D2] 25 mcg PO DAILY 07/17/19 Ferrous Sulfate 325 mg PO BID #60 tablet 07/25/19 Carvedilol 3.125 mg PO BID 08/08/19 Nifedipine [Nifedipine ER] 90 mg PO DAILY 08/08/19 Albuterol 0.083% Nebulizer Malorie [Ventolin 0.083% Nebulizer Soln -] 1 neb NEB Q4H PRN 08/09/19 Aspirin [ASA -] 81 mg PO DAILY tab.chew 08/09/19 Valsartan [Diovan] 80 mg PO DAILY #30 tablet 08/16/19 Fluticasone Propion/Salmeterol [Wixela 250-50 Inhub] 1 each IH BID 08/28/19 Atorvastatin Ca [Lipitor] 80 mg PO HS 10/07/19 Amlodipine Besylate [Norvasc -] 5 mg PO DAILY 10/08/19 Apixaban [Eliquis] 5 mg PO DAILY 10/08/19 Furosemide [Lasix -] 40 mg PO DAILY #30 tablet 10/08/19 Hydralazine HCl 50 mg PO TID 10/08/19 Problem List - Problems (1) CHF (congestive heart failure) Code(s): I50.9 - HEART FAILURE, UNSPECIFIED Qualifiers: Heart failure type: unspecified Heart failure chronicity: acute on chronic Qualified Code(s): I50.9 - Heart failure, unspecified (2) Shortness of breath Code(s): R06.02 - SHORTNESS OF BREATH (3) Anemia Code(s): D64.9 - ANEMIA, UNSPECIFIED Qualifiers: Anemia type: iron deficiency (4) Coronary artery disease Code(s): I25.10 - ATHSCL HEART DISEASE OF [place] CORONARY ARTERY W/O ANG PCTRS Qualifiers: Coronary Disease-Associated Artery/Lesion type: [place] artery [place] vs. transplanted heart: [place] heart Associated angina: without angina Qualified Code(s): I25.10 - Atherosclerotic heart disease of [place] coronary artery without angina pectoris (5) Dementia Code(s): F03.90 - UNSPECIFIED DEMENTIA WITHOUT BEHAVIORAL DISTURBANCE (6) HTN (hypertension) Code(s): I10 - ESSENTIAL (PRIMARY) HYPERTENSION Qualifiers: Hypertension type: essential hypertension Qualified Code(s): I10 - Essential (primary) hypertension (7) Morbid obesity Code(s): E66.01 - MORBID (SEVERE) OBESITY DUE TO EXCESS CALORIES (8) Respiratory failure with hypoxia Code(s): J96.91 - RESPIRATORY FAILURE, UNSPECIFIED WITH HYPOXIA Qualifiers: Chronicity: acute on chronic Qualified Code(s): J96.21 - Acute and chronic respiratory failure with hypoxia (9) Chest pain Code(s): R07.9 - CHEST PAIN, UNSPECIFIED Qualifiers: Chest pain type: unspecified Qualified Code(s): R07.9 - Chest pain, unspecified This patient is new to me today: Yes Date on this admission: 10/08/19 Emergency Visit: No Critical Care patient: No - Discharge Referral Referred to [facility] Med P.C.: No
[2019-10-09] MEDS ORDERED: FUROSEMIDE 40 MG TABLET (FP) PO SCH (10:00)
== END 2019-10-08 19:32 | disposition home or self-care (01) | DRG 291 ==
LOC: JER 02:50 → JERBED 04:53 → J4S 19:58
PROVIDERS: ADMIT Internal Medicine
DX: I13.0 Hypertensive heart and chronic kidney disease with heart failure and stage 1 through stage 4 chronic kidney disease, or unspecified chronic kidney disease (principal); J96.00 Acute respiratory failure, unspecified whether with hypoxia or hypercapnia; I50.33 Acute on chronic diastolic (congestive) heart failure; Z68.41 Body mass index [BMI] 40.0-44.9, adult; N17.9 Acute kidney failure, unspecified; I25.10 Atherosclerotic heart disease of native coronary artery without angina pectoris; N18.2 Chronic kidney disease, stage 2 (mild); J44.9 Chronic obstructive pulmonary disease, unspecified; E66.01 Morbid (severe) obesity due to excess calories; F03.90 Unspecified dementia, unspecified severity, without behavioral disturbance, psychotic disturbance, mood disturbance, and anxiety; M10.9 Gout, unspecified; D50.9 Iron deficiency anemia, unspecified; I25.2 Old myocardial infarction; E88.09 Other disorders of plasma-protein metabolism, not elsewhere classified; G47.33 Obstructive sleep apnea (adult) (pediatric); K55.20 Angiodysplasia of colon without hemorrhage; Z99.81 Dependence on supplemental oxygen; Z87.891 Personal history of nicotine dependence; Z86.73 Personal history of transient ischemic attack (TIA), and cerebral infarction without residual deficits
CPT/HCPCS: 36415; 71045-TC-FY; 76775-TC; 80053; 81003; 82550; 82553; 82565; 82570; 82803; 83735; 83880; 84100; 84156; 84484; 84540; 85025; 87205; 93005; 93010; 94660; 97116-GP; 97161-GP; 99285-25; J1644

== ENCOUNTER 2019-10-18 02:51 | Observation (INO) | payer OTHER ==
--- NOTE | 2019-10-18 03:33 | PDOC ---
Attending Attestation - Resident Resident Name: Vashti Payne - ED Attending Attestation I have performed the following: I have examined & evaluated the patient, The case was reviewed & discussed with the resident, I agree w/resident's findings & plan - HPI HPI: 10/18/19 07:02 see resident hpi - Physicial Exam PE: 10/18/19 07:03 see resident exam - Medical Decision Making 10/18/19 07:03 68-year-old female with chest pain Chest x-ray shows no acute abnormality Plan for chest pain observation admission
[2019-10-18] MEDS ORDERED: ALBUTEROL SO4 2.5/IPRATROPIUM 0.5 INH SOL 3 ML VIAL.NEB. NEB ONE ×2 (03:41→04:08)
--- NOTE | 2019-10-18 03:44 | PDOC ---
History of Present Illness - General Chief Complaint: Chest Pain Stated Complaint: CHEST PAIN Time Seen by Provider: 10/18/19 03:31 - History of Present Illness Initial Comments: Renea Nagy is a 68yo woman with a PMH of asthma, CHF, COPD (on home 2L), CAD, HTN, dementia, HLD, gout, recent admission for CHF exacerbation (10/07-10/08) who presents with gradual onset of mid-sternal chest tightness tonight. She says that she was laying in bed when the pain started. She denies any associated shortness of breath, nausea/vomiting, sweating, lightheadedness, pain radiation, or other symptoms. She denies a history of heartburn. She states that she has been taking her lasix daily since her recent hospitalization (rather than every other day as before) with an improvement of her leg swelling. She was given 325mg ASA and nitroglycerine by EMS with improvement in her symptoms. Past History - Past Medical History Allergies/Adverse Reactions: Allergies Allergy/AdvReac Type Severity Reaction Status Date / Time No Known Drug Allergies Allergy Verified 08/17/19 04:54 Shellfish Allergy Uncoded 08/17/19 04:54 Home Medications: Ambulatory Orders Allopurinol [Zyloprim -] 100 mg PO DAILY 09/10/18 Donepezil HCl 10 mg PO HS 09/10/18 Calcium Carbonate [Calcium] 600 mg PO DAILY 07/17/19 Ergocalciferol (Vitamin D2) [Vitamin D2] 25 mcg PO DAILY 07/17/19 Ferrous Sulfate 325 mg PO BID #60 tablet 07/25/19 Carvedilol 3.125 mg PO BID 08/08/19 Nifedipine [Nifedipine ER] 90 mg PO DAILY 08/08/19 Albuterol 0.083% Nebulizer Malorie [Ventolin 0.083% Nebulizer Soln -] 1 neb NEB Q4H PRN 08/09/19 Aspirin [ASA -] 81 mg PO DAILY tab.chew 08/09/19 Valsartan [Diovan] 80 mg PO DAILY #30 tablet 08/16/19 Fluticasone Propion/Salmeterol [Wixela 250-50 Inhub] 1 each IH BID 08/28/19 Atorvastatin Ca [Lipitor] 80 mg PO HS 10/07/19 Amlodipine Besylate [Norvasc -] 5 mg PO DAILY 10/08/19 Apixaban [Eliquis] 5 mg PO DAILY 10/08/19 Furosemide [Lasix -] 40 mg PO DAILY #30 tablet 10/08/19 Hydralazine HCl 50 mg PO TID 10/08/19 Asthma: Yes CVA: Yes COPD: Yes CHF: Yes Dementia: Yes HTN: Yes Hypercholesterolemia: Yes Seizures: Yes (EPILEPTIC SEIZURES) - Immunization History TDAP Vaccination: Yes Immunization Up to Date: Yes - Psycho Social/Smoking Cessation Hx Smoking Status: No Smoking History: Never smoked Have you smoked in the past 12 months: No Number of Cigarettes Smoked Daily: 20 If you are a former smoker, when did you quit?: 2017 'Breaking Loose' booklet given: 09/10/18 Hx Alcohol Use: No Drug/Substance Use Hx: No Substance Use Type: None Hx Substance Use Treatment: No Review of Systems - Review of Systems Comments:: General: No fevers, no chills, no weight or appetite change, no malaise HEENT: No changes in vision, no changes in hearing, no congestion, no sore throat CV: +Chest tightness, no palpitations, + LE edema Pulm: No SOB, no cough, no wheezing GI: No nausea or vomiting, no change in bowel habits, no melena : No frequency, no urgency, no dysuria Musc: No back pain, no joint swelling, no recent injury Skin: No rash, no lesions, no erythema Endo: No excessive thirst, no heat/cold intolerance Heme: No unusual bruising or bleeding, no swollen glands Neuro: No syncope, no numbness/tingling, no focal weakness Vasc: No claudication Psych: No recent change in mood, no SI or HI *Physical Exam - Vital Signs Last Vital Signs Temp Pulse Resp BP Pulse Ox 97.4 F L 62 20 143/63 100 10/18/19 02:54 10/18/19 02:54 10/18/19 02:54 10/18/19 02:54 10/18/19 02:54 - Physical Exam General: Comfortable, no acute distress HEENT: PERRL, EOMI, MMM, voice normal, normal neck ROM Cards: RRR, no murmur appreciated Pulm: Comfortable on 2L by NC. No wheezing or crackles appreciated, but lung sounds distant secondary to habitus Abd: Soft, nontender, nondistended Ext: Atraumatic. 1+ BLE edema. Moves all extremities. WWP Skin: Normal color, no rashes or lesions Neuro: A&Ox3, CN grossly intact, normal speech, motor/sensory grossly intact and symmetric Psych: Mood appropriate to situation ED Treatment Course - LABORATORY CBC & Chemistry Diagram: 10/18/19 04:00 10/18/19 04:00 - RADIOLOGY Radiology Studies Ordered: Category Date Time Status CHEST X-RAY PORTABLE* [RAD] Stat Radiology 10/18/19 03:41 Ordered Medical Decision Making - Medical Decision Making 10/18/19 03:42 Renea Nagy is a 68yo woman with a PMH of asthma, CHF, COPD (on home 2L), CAD, HTN, dementia, HLD, gout, recent admission for CHF exacerbation (10/07-10/08) who presents with gradual onset of mid-sternal chest tightness tonight. She says that she was laying in bed when the pain started. She denies any associated shortness of breath, nausea/vomiting, sweating, lightheadedness, pain radiation, or other symptoms. She denies a history of heartburn. She states that she has been taking her lasix daily since her recent hospitalization (rather than every other day as before) with an improvement of her leg swelling. - Given medical history, concerning for ACS, CHF exacerbation, COPD/asthma exacerbation. Reflux also possible - CBC, CMP, EKG, CXR, trop, BNP - Nebs 10/18/19 05:08 - Labs completed. No concerning abnormalities. Troponin negative. - EKG with NSR, HR 63, normal axis, normal intervals, no ST elevations. - Will admit for additional ACS workup 10/18/19 06:10 - Sign out given to Dr Richard Patrick - Patient accepted to telemetry for further management. Discussed with Dr Wali Payne PGY2 Discharge - Discharge Information Problems reviewed: Yes Clinical Impression/Diagnosis: Chest pain Qualifiers: Chest pain type: unspecified Qualified Code(s): R07.9 - Chest pain, unspecified Condition: Stable - Admission Yes - Follow up/Referral - Patient Discharge Instructions - Post Discharge Activity
[2019-10-18 04:41] LABS: BASO % 0.9 % (0-2.0); EOS % 3.9 % (0-4.5); HEMATOCRIT 34.3 % (32.4-45.2); HEMOGLOBIN 11.3 GM/dL (10.7-15.3); MCH 28.5 pg (25.7-33.7); MCHC 32.8 g/dl (32.0-36.0); MEAN CELL VOLUME 86.7 fl (80-96); MONO % 6.2 % (3.8-10.2); PLATELET COUNT 221 K/MM3 (134-434); RBC 3.96 M/mm3 (3.60-5.2); WHITE BLOOD COUNT 6.1 K/mm3 (4.0-10.0)
[2019-10-18 05:00] LABS: INR 1.03 (0.83-1.09); PROTHROMBIN TIME (PATIENT) 12.2 SEC (9.7-13.0)
[2019-10-18 05:01] LABS: ALBUMIN 3.2 g/dl (3.4-5.0); BILIRUBIN,TOTAL 0.4 mg/dL (0.2-1); CALCIUM 9.9 mg/dL (8.5-10.1); CREATININE 1.6 mg/dL (0.55-1.3); MAGNESIUM 2.2 mg/dL (1.8-2.4); TOT PROT 7.7 g/dl (6.4-8.2)
[2019-10-18 05:02] LABS: ACTIVATED PTT 30.8 SECONDS (25.2-36.5)
--- NOTE | 2019-10-18 07:41 | HP ---
CHIEF COMPLAINT: Chest Tightness PCP: Dr. Dickson HISTORY OF PRESENT ILLNESS: Pt. is a 68 year old female with a past medical history of asthma, HFpEF, COPD (on home 2L), CAD, HTN, dementia, HLD, gout who presents for chest tightness. Pt. states that she was lying in bed when the tightness started gradually. Unclear who called EMS, but PTwas given ASA 324mg and Nitroglycerin in the ED with improvement of her symptoms. Pt. endorses abdominal tightness? but denies any nausea, vomiting, diarrhea, constipation, changes in bowel or urinary habits, fever, chills or sick contacts. Pt. states that she has not followed up with any other referrals given to her 10 days when she was admitted for shortness of breath. Pt. endorses compliance with Lasix with marked improvement in her lower extremity swelling. ER course was notable for: (1)CBC, CMP, PT/INR (2)CXR, EKG, Trop (3) Recent Travel: denies PAST MEDICAL HISTORY: as above PAST SURGICAL HISTORY: hysterectomy Social History: Smoking: former smoker, quit in 2018 Alcohol: denies Drugs: denies Allergies No Known Drug Allergies Allergy (Verified 08/17/19 04:54) Shellfish Allergy (Uncoded 08/17/19 04:54) HOME MEDICATIONS: Home Medications Medication Instructions Recorded Allopurinol [Zyloprim -] 100 mg PO DAILY 09/10/18 Donepezil HCl 10 mg PO HS 09/10/18 Calcium Carbonate [Calcium] 600 mg PO DAILY 07/17/19 Ergocalciferol (Vitamin D2) 25 mcg PO DAILY 07/17/19 [Vitamin D2] Ferrous Sulfate 325 mg PO BID #60 tablet 07/25/19 Carvedilol 3.125 mg PO BID 08/08/19 Nifedipine [Nifedipine ER] 90 mg PO DAILY 08/08/19 Albuterol 0.083% Nebulizer Malorie 1 neb NEB Q4H PRN 08/09/19 [Ventolin 0.083% Nebulizer Soln -] Aspirin [ASA -] 81 mg PO DAILY tab.chew 08/09/19 Valsartan [Diovan] 80 mg PO DAILY #30 tablet 08/16/19 Fluticasone Propion/Salmeterol 1 each IH BID 08/28/19 [Wixela 250-50 Inhub] Atorvastatin Ca [Lipitor] 80 mg PO HS 10/07/19 Amlodipine Besylate [Norvasc -] 5 mg PO DAILY 10/08/19 Apixaban [Eliquis] 5 mg PO DAILY 10/08/19 Furosemide [Lasix -] 40 mg PO DAILY #30 tablet 10/08/19 Hydralazine HCl 50 mg PO TID 10/08/19 REVIEW OF SYSTEMS As above PHYSICAL EXAMINATION Vital Signs - 24 hr 10/18/19 10/18/19 10/18/19 02:54 06:00 06:40 Temperature 97.4 F L Pulse Rate 62 Pulse Rate [ 66 Left Radial] Respiratory 20 14 Rate Blood Pressure 143/63 Blood Pressure 152/61 [Right Arm] O2 Sat by Pulse 100 100 100 Oximetry (%) GENERAL: Awake, alert, oriented to name, in no acute distress. HEAD: Normal with no signs of trauma. EYES: Pupils equal, round and reactive to light, extraocular movements intact, sclera anicteric, conjunctiva clear. EARS, NOSE, THROAT: Ears normal, nares patent, oropharynx clear without exudates. Moist mucous membranes. NECK: Normal range of motion, supple without lymphadenopathy, JVD, or masses. LUNGS: Faint right lower lobe crackles. On 2L home O2. No accessory muscle use. HEART: Regular rate and rhythm, normal S1 and S2 without murmur ABDOMEN: Soft, nontender, not distended, normoactive bowel sounds, no guarding, no rebound, no masses. MUSCULOSKELETAL: No CVA tenderness. UPPER EXTREMITIES: 2+ radial pulses, warm, well-perfused. No cyanosis. No clubbing. LOWER EXTREMITIES: 2+ dorsal pedal pulses, warm, well-perfused. No calf tenderness. 1+ pitting edema. NEUROLOGICAL: Normal speech. Gait not assessed PSYCHIATRIC: Cooperative. Good eye contact. Appropriate mood and affect. SKIN: Warm, dry, normal turgor, no rashes or lesions noted, normal capillary refill. Laboratory Results - last 24 hr 10/18/19 10/18/19 10/18/19 04:00 04:00 04:00 WBC 6.1 RBC 3.96 Hgb 11.3 Hct 34.3 MCV 86.7 MCH 28.5 MCHC 32.8 RDW 23.0 H Plt Count 221 MPV 10.0 Absolute Neuts (auto) 3.1 Neutrophils % 51.0 Lymphocytes % 38.0 Monocytes % 6.2 Eosinophils % 3.9 D Basophils % 0.9 Nucleated RBC % 0 PT with INR 12.20 INR 1.03 PTT (Actin FS) 30.8 Sodium Potassium Chloride Carbon Dioxide Anion Gap BUN Creatinine Est GFR (CKD-EPI)AfAm Est GFR (CKD-EPI)NonAf Random Glucose Calcium Magnesium Total Bilirubin AST ALT Alkaline Phosphatase Creatine Kinase 77 Troponin I 0.04 B-Natriuretic Peptide Total Protein Albumin 10/18/19 10/18/19 04:00 04:00 WBC RBC Hgb Hct MCV MCH MCHC RDW Plt Count MPV Absolute Neuts (auto) Neutrophils % Lymphocytes % Monocytes % Eosinophils % Basophils % Nucleated RBC % PT with INR INR PTT (Actin FS) Sodium 140 Potassium 4.0 Chloride 109 H Carbon Dioxide 25 Anion Gap 7 L BUN 40.0 H Creatinine 1.6 H Est GFR (CKD-EPI)AfAm 37.45 Est GFR (CKD-EPI)NonAf 32.31 Random Glucose 94 Calcium 9.9 Magnesium 2.2 Total Bilirubin 0.4 AST 15 ALT 14 Alkaline Phosphatase 101 Creatine Kinase Troponin I B-Natriuretic Peptide 761.0 H Total Protein 7.7 Albumin 3.2 L ASSESSMENT/PLAN: Pt. is a 68 year old female with a past medical history of asthma, HFpEF, COPD ( on home 2L), CAD, HTN, dementia, HLD, gout who presents for chest tightness. #R/o ACS Trop Neg. f/u second Trop EKG: no signs of ST segment changes, borderline 1st degree AV block (1st degree present on prior EKG), all other interval normal, QTc: 440 Echo (07/17/19): EF 55%, mild concentric LVH, however suboptimal study. LA mildly dilated. MPI Stress Test in August complete benign BNP: 700s, lowest it has ever been Cardiac monitoring #CKD #Asthma #COPD #HTN #Dementia #HLD #Gout #CAD c/w home medications #FEN no IVF, encourage PO intake with 2L total limit of fluids monitor electrolytes and replete as needed Sodium controlled diet #DVT Ppx. Hep SQ Visit type - Emergency Visit Emergency Visit: Yes ED Registration Date: 10/18/19 Care time: The patient presented to the Emergency Department on the above date and was hospitalized for further evaluation of their emergent condition. - New Patient This patient is new to me today: Yes Date on this admission: 10/18/19 - Critical Care Critical Care patient: No ATTENDING PHYSICIAN STATEMENT I saw and evaluated the patient. I reviewed the resident's note and discussed the case with the resident. I agree with the resident's findings and plan as documented. SUBJECTIVE: OBJECTIVE: ASSESSMENT AND PLAN:
[2019-10-18] MEDS ORDERED: ALBUTEROL SO4 0.083% IH SOL 2.5 MG/3 ML VIAL.NEB. NEB SCH (08:02)
[2019-10-18 08:35] LABS: OVALOCYTE 1+
[2019-10-18] MEDS ORDERED: ALBUTEROL SO4 0.083% IH SOL 2.5 MG/3 ML VIAL.NEB. NEB PRN (08:45)
[2019-10-18] MEDS ORDERED: PT OWN MED DRAWER 7, Y5N ONE (09:15)
[2019-10-18] MEDS ORDERED: PATIENT'S OWN MEDICATION (NON-FORMULARY) (Calcium Carbonate [Calcium] 600 MG) PO SCH (10:00)
[2019-10-18] MEDS ORDERED: ERGOCALCIFEROL 25 MCG PO SCH (10:00)
[2019-10-18] MEDS ORDERED: PATIENT'S OWN MEDICATION (NON-FORMULARY) (Fluticasone Propion/Salmeterol [Wixela 250-50 In IH SCH (10:00)
[2019-10-18] MEDS ORDERED: PATIENT'S OWN MEDICATION (NON-FORMULARY) (Ferrous Sulfate [Ferrous Sulfate] 325 MG) PO SCH (10:00)
[2019-10-18] MEDS ORDERED: amLODIPine BESYLATE 5 MG TABLET (FP) PO SCH (10:00)
[2019-10-18] MEDS: FUROSEMIDE 40 MG TABLET (FP) PO SCH (10:24)
[2019-10-18] MEDS: CARVEDILOL 3.125 MG TABLET (FP) PO SCH ×2 (10:24→21:24)
[2019-10-18] MEDS: FERROUS SO4 325 MG TABLET (FP) PO SCH ×2 (10:24→21:24)
[2019-10-18] MEDS: VALSARTAN 80 MG TABLET (UD) PO SCH (10:24)
[2019-10-18] MEDS: ASPIRIN 81 MG CHEWABLE TABLETS PO SCH (10:24)
[2019-10-18] MEDS: NIFEdipine E.R. 90 MG TABLET PO SCH (10:24)
[2019-10-18] MEDS: ALLOPURINOL 100 MG TABLET (FP) PO SCH (10:24)
--- NOTE | 2019-10-18 11:54 | EKG ---
Test Reason : Blood Pressure : / mmHG Vent. Rate : 063 BPM Atrial Rate : 063 BPM P-R Int : 200 ms QRS Dur : 114 ms QT Int : 430 ms P-R-T Axes : 044 039 047 degrees QTc Int : 440 ms POOR DATA QUALITY, INTERPRETATION MAY BE ADVERSELY AFFECTED NORMAL SINUS RHYTHM POSSIBLE LEFT ATRIAL ENLARGEMENT INFERIOR INFARCT (CITED ON OR BEFORE 09-SEP-2018) CANNOT RULE OUT ANTERIOR INFARCT , AGE UNDETERMINED ABNORMAL ECG WHEN COMPARED WITH ECG OF 07-OCT-2019 02:55, NO SIGNIFICANT CHANGE WAS FOUND Confirmed by CLARITZA SINGLETARY, SHELLY ([id number]) on 10/18/2019 11:54:22 AM Referred By: Confirmed By:SHELLY JERRY MD
[2019-10-18] MEDS: hydrALAZINE HCL 50 MG TABLET (FP) PO SCH ×2 (15:54→21:24)
[2019-10-18] MEDS: HEPARIN NA (PORCINE) 5,000 UNITS/ML 1ML VIAL SQ SCH ×2 (15:54→21:24)
--- NOTE | 2019-10-18 16:41 | PN ---
Teaching Attending Note Name of Resident: Kaleb Lopez ATTENDING PHYSICIAN STATEMENT I saw and evaluated the patient. I reviewed the resident's note and discussed the case with the resident. I agree with the resident's findings and plan as documented. SUBJECTIVE: No further chest pain - no SOB/cough/sputum/palpitations/fever/ chills. OBJECTIVE: Afebrile, hemodynamically Stable. Last Vital Signs Temp Pulse Resp BP Pulse Ox 97.4 F L 66 14 152/61 100 10/18/19 02:54 10/18/19 06:40 10/18/19 06:40 10/18/19 06:40 10/18/19 06:40 HEENT - Atraumatic, Normocephalic. Heart - S1, S2, RRR Lungs - clear to auscultation Abdomen - soft, non-tender. Bowel sounds normal. Extremities - No edema, no calf tenderness Laboratory Results - last 24 hr 10/18/19 10/18/19 10/18/19 04:00 04:00 04:00 WBC 6.1 RBC 3.96 Hgb 11.3 Hct 34.3 MCV 86.7 MCH 28.5 MCHC 32.8 RDW 23.0 H Plt Count 221 MPV 10.0 Absolute Neuts (auto) 3.1 Neutrophils % 51.0 Lymphocytes % 38.0 Monocytes % 6.2 Eosinophils % 3.9 D Basophils % 0.9 Nucleated RBC % 0 Hypochromia 1+ Spherocytes 1+ Ovalocytes 1+ Shelbi Cells 1+ PT with INR 12.20 INR 1.03 PTT (Actin FS) 30.8 Sodium Potassium Chloride Carbon Dioxide Anion Gap BUN Creatinine Est GFR (CKD-EPI)AfAm Est GFR (CKD-EPI)NonAf Random Glucose Calcium Magnesium Total Bilirubin AST ALT Alkaline Phosphatase Creatine Kinase 77 Troponin I 0.04 B-Natriuretic Peptide Total Protein Albumin 10/18/19 10/18/19 10/18/19 04:00 04:00 07:42 WBC RBC Hgb Hct MCV MCH MCHC RDW Plt Count MPV Absolute Neuts (auto) Neutrophils % Lymphocytes % Monocytes % Eosinophils % Basophils % Nucleated RBC % Hypochromia Spherocytes Ovalocytes Shelbi Cells PT with INR INR PTT (Actin FS) Sodium 140 Potassium 4.0 Chloride 109 H Carbon Dioxide 25 Anion Gap 7 L BUN 40.0 H Creatinine 1.6 H Est GFR (CKD-EPI)AfAm 37.45 Est GFR (CKD-EPI)NonAf 32.31 Random Glucose 94 Calcium 9.9 Magnesium 2.2 Total Bilirubin 0.4 AST 15 ALT 14 Alkaline Phosphatase 101 Creatine Kinase Troponin I 0.03 B-Natriuretic Peptide 761.0 H Total Protein 7.7 Albumin 3.2 L Current Medications Generic Name Dose Route Start Last Admin Trade Name Freq PRN Reason Stop Dose Admin Albuterol Sulfate 1 amp 10/18/19 08:45 Ventolin 0.083% Nebulizer Soln - NEB RQ4H PRN WHEEZING Allopurinol 100 mg 10/18/19 10:00 10/18/19 10:24 Zyloprim - PO 100 mg DAILY ARA Administration Aspirin 81 mg 10/18/19 10:00 10/18/19 10:24 Asa - PO 81 mg DAILY ARA Administration Atorvastatin Calcium 80 mg 10/18/19 22:00 Lipitor - PO HS ARA Budesonide/Formoterol Fumarate 2 puff 10/18/19 10:00 Symbicort 80/4.5mcg - IH BID ARA Calcium Carbonate 500 mg 10/18/19 10:00 Calcium Carb Oral Suspension - PO DAILY ARA Carvedilol 3.125 mg 10/18/19 10:00 10/18/19 10:24 Coreg - PO 3.125 mg BID ARA Administration Cholecalciferol 1,000 unit 10/18/19 10:00 Vitamin D3 - PO DAILY ARA Donepezil HCl 10 mg 10/18/19 22:00 Aricept - PO HS ARA Ferrous Sulfate 325 mg 10/18/19 10:00 10/18/19 10:24 Feosol - PO 325 mg BID ARA Administration Furosemide 40 mg 10/18/19 10:00 10/18/19 10:24 Lasix - PO 40 mg DAILY ARA Administration Heparin Sodium (Porcine) 5,000 unit 10/18/19 14:00 10/18/19 15:54 Heparin - SQ 5,000 unit TID ARA Administration Hydralazine HCl 50 mg 10/18/19 14:00 10/18/19 15:54 Apresoline - PO 50 mg TID ARA Administration Nifedipine 90 mg 10/18/19 10:00 10/18/19 10:24 Procardia Xl - PO 90 mg DAILY ARA Administration Valsartan 80 mg 10/18/19 10:00 10/18/19 10:24 Diovan - PO 80 mg DAILY ARA Administration Home Medications Medication Instructions Recorded Allopurinol [Zyloprim -] 100 mg PO DAILY 09/10/18 Donepezil HCl 10 mg PO HS 09/10/18 Calcium Carbonate [Calcium] 600 mg PO DAILY 07/17/19 Ergocalciferol (Vitamin D2) 25 mcg PO DAILY 07/17/19 [Vitamin D2] Ferrous Sulfate 325 mg PO BID #60 tablet 07/25/19 Carvedilol 3.125 mg PO BID 08/08/19 Nifedipine [Nifedipine ER] 90 mg PO DAILY 08/08/19 Albuterol 0.083% Nebulizer Malorie 1 neb NEB Q4H PRN 08/09/19 [Ventolin 0.083% Nebulizer Soln -] Aspirin [ASA -] 81 mg PO DAILY tab.chew 08/09/19 Valsartan [Diovan] 80 mg PO DAILY #30 tablet 08/16/19 Fluticasone Propion/Salmeterol 1 each IH BID 08/28/19 [Wixela 250-50 Inhub] Atorvastatin Ca [Lipitor] 80 mg PO HS 10/07/19 Apixaban [Eliquis] 5 mg PO DAILY 10/08/19 Furosemide [Lasix -] 40 mg PO DAILY #30 tablet 10/08/19 Hydralazine HCl 50 mg PO TID 10/08/19 ASSESSMENT AND PLAN: 68 year old female with Dementia, Asthma, CRF sec to COPD on 2L O2, HTN, HLD, Gout, Chronic Diastolic CHF, presents with chest tightness. 1. Atypical CP - unlikely ACS EKG - no signs of ST/T wave changes, QTc 440 Echo (07/17/19): EF 55%, mild concentric LVH, however suboptimal study. LA mildly dilated. MPI Stress Test 10/08/18 negative Serial troponin, Telemonitoring. 2. Chronic respiratory failure secondary to Chronic Diastolic CHF Echo in 07/2019 noting normal EF, LV hypertrophy Continue Lasix. Pulm referral on DC for sleep study and PFTs as out-patient. 3. CKD 3 - stable. 4. CRF sec to COPD - on 2L via [place]. Stable. Continue Symbicort. 5. HTN - Continue Nifedipine, Valsartan, Coreg. 6. Dementia - Continue Donepezil. 7. Gout - Continue Allopurinol. 8. Dementia - continue Donepezil. 9. HLD -Continue Statin 10. CJ - continue Ferrous Sulphate 11. CAD s/p NE - Continue Aspirin, BB, Statin. 12. Cerebrovascular Disease - Continue Aspirin, Statin. DVT Px - Heparin SQ
[2019-10-18 17:44] VITALS: BMI 40.9
[2019-10-18] MEDS ORDERED: DONEPEZIL HCL 10 MG TABLET (FP) PO SCH (22:00)
[2019-10-18] MEDS ORDERED: ATORVASTATIN CA 80 MG TABLET (FP) PO SCH (22:00)
[2019-10-18] MEDS: BUDESONIDE/FORMETEROL FUMARATE 80/4.5 mcg INHALER IH SCH (22:58)
[2019-10-18] MEDS: CALCIUM CARBONATE SUSPENSION - 500 MG/5 ML ML PO SCH (22:58)
[2019-10-19] MEDS: HEPARIN NA (PORCINE) 5,000 UNITS/ML 1ML VIAL SQ SCH ×2 (05:28→13:49)
[2019-10-19] MEDS: hydrALAZINE HCL 50 MG TABLET (FP) PO SCH ×2 (05:28→13:49)
[2019-10-19] MEDS: BUDESONIDE/FORMETEROL FUMARATE 80/4.5 mcg INHALER IH SCH ×2 (07:35→10:29)
[2019-10-19] MEDS: CHOLECALCIFEROL (VIT D3) 1,000 UNIT (25 MCG) TABLET PO SCH ×2 (07:36→10:27)
[2019-10-19] MEDS ORDERED: PT OWN MED DRAWER 7, Y5N ONE (09:13)
[2019-10-19] MEDS: FERROUS SO4 325 MG TABLET (FP) PO SCH (10:26)
[2019-10-19] MEDS: ASPIRIN 81 MG CHEWABLE TABLETS PO SCH (10:27)
[2019-10-19] MEDS: NIFEdipine E.R. 90 MG TABLET PO SCH (10:27)
[2019-10-19] MEDS: ALLOPURINOL 100 MG TABLET (FP) PO SCH (10:27)
[2019-10-19] MEDS: VALSARTAN 80 MG TABLET (UD) PO SCH (10:27)
[2019-10-19] MEDS: FUROSEMIDE 40 MG TABLET (FP) PO SCH (10:27)
[2019-10-19] MEDS: CARVEDILOL 3.125 MG TABLET (FP) PO SCH (10:27)
[2019-10-19] MEDS: CALCIUM CARBONATE SUSPENSION - 500 MG/5 ML ML PO SCH (10:28)
--- NOTE | 2019-10-19 12:45 | PN ---
Teaching Attending Note Name of Resident: Reena Mchugh ATTENDING PHYSICIAN STATEMENT I saw and evaluated the patient. I reviewed the resident's note and discussed the case with the resident. I agree with the resident's findings and plan as documented. SUBJECTIVE: No further chest pain - no SOB/cough/sputum/palpitations/fever/ chills. OBJECTIVE: Afebrile, Hemodynamically Stable. Last Vital Signs Temp Pulse Resp BP Pulse Ox 98.2 F 65 17 131/56 L 97 10/19/19 10:22 10/19/19 10:22 10/19/19 10:22 10/19/19 10:10/19/19 07:00 HEENT - Atraumatic, Normocephalic. Heart - S1, S2, RRR Lungs - clear to auscultation Abdomen - soft, non-tender. Bowel sounds normal. Extremities - No edema, no calf tenderness Laboratory Results - last 24 hr 10/18/19 20:40 Troponin I 0.04 Current Medications Generic Name Dose Route Start Last Admin Trade Name Freq PRN Reason Stop Dose Admin Albuterol Sulfate 1 amp 10/18/19 08:45 Ventolin 0.083% Nebulizer Soln - NEB RQ4H PRN WHEEZING Allopurinol 100 mg 10/18/19 10:00 10/19/19 10:27 Zyloprim - PO 100 mg DAILY ARA Administration Aspirin 81 mg 10/18/19 10:10/19/19 10:27 Asa - PO 81 mg DAILY ARA Administration Atorvastatin Calcium 80 mg 10/18/19 22:00 10/18/19 21:24 Lipitor - PO 80 mg HS ARA Administration Budesonide/Formoterol Fumarate 2 puff 10/18/19 10:10/19/19 10:29 Symbicort 80/4.5mcg - IH 2 puff BID ARA Administration Calcium Carbonate 500 mg 10/18/19 10:10/19/19 10:28 Calcium Carb Oral Suspension - PO 500 mg DAILY ARA Administration Carvedilol 3.125 mg 10/18/19 10:10/19/19 10:27 Coreg - PO 3.125 mg BID ARA Administration Cholecalciferol 1,000 unit 10/18/19 10:10/19/19 10:27 Vitamin D3 - PO 1,000 unit DAILY ARA Administration Donepezil HCl 10 mg 10/18/19 22:00 10/18/19 21:24 Aricept - PO 10 mg HS ARA Administration Ferrous Sulfate 325 mg 10/18/19 10:00 10/19/19 10:26 Feosol - PO 325 mg BID ARA Administration Furosemide 40 mg 10/18/19 10:00 10/19/19 10:27 Lasix - PO 40 mg DAILY ARA Administration Heparin Sodium (Porcine) 5,000 unit 10/18/19 14:00 10/19/19 05:28 Heparin - SQ 5,000 unit TID ARA Administration Hydralazine HCl 50 mg 10/18/19 14:00 10/19/19 05:28 Apresoline - PO 50 mg TID ARA Administration Nifedipine 90 mg 10/18/19 10:00 10/19/19 10:27 Procardia Xl - PO 90 mg DAILY ARA Administration Valsartan 80 mg 10/18/19 10:00 10/19/19 10:27 Diovan - PO 80 mg DAILY ARA Administration Home Medications Medication Instructions Recorded Allopurinol [Zyloprim -] 100 mg PO DAILY 09/10/18 Donepezil HCl 10 mg PO HS 09/10/18 Calcium Carbonate [Calcium] 600 mg PO DAILY 07/17/19 Ergocalciferol (Vitamin D2) 25 mcg PO DAILY 07/17/19 [Vitamin D2] Ferrous Sulfate 325 mg PO BID #60 tablet 07/25/19 Carvedilol 3.125 mg PO BID 08/08/19 Nifedipine [Nifedipine ER] 90 mg PO DAILY 08/08/19 Albuterol 0.083% Nebulizer Malorie 1 neb NEB Q4H PRN 08/09/19 [Ventolin 0.083% Nebulizer Soln -] Aspirin [ASA -] 81 mg PO DAILY tab.chew 08/09/19 Valsartan [Diovan] 80 mg PO DAILY #30 tablet 08/16/19 Fluticasone Propion/Salmeterol 1 each IH BID 08/28/19 [Wixela 250-50 Inhub] Atorvastatin Ca [Lipitor] 80 mg PO HS 10/07/19 Apixaban [Eliquis] 5 mg PO DAILY 10/08/19 Furosemide [Lasix -] 40 mg PO DAILY #30 tablet 10/08/19 Hydralazine HCl 50 mg PO TID 10/08/19 ASSESSMENT AND PLAN: 68 year old female with Dementia, Asthma, CRF sec to COPD on 2L O2, HTN, HLD, Gout, Chronic Diastolic CHF, presents with chest tightness. 1. Atypical CP - ACS excluded EKG - no signs of ST/T wave changes, QTc 440 Echo (07/17/19): EF 55%, mild concentric LVH, however suboptimal study. LA mildly dilated. MPI Stress Test 10/08/18 negative Serial Troponin negative x 3, no Telemonitoring events. Medically stable for discharge tomorrow. 2. Chronic respiratory failure secondary to Chronic Diastolic CHF Echo in 07/2019 noting normal EF, LV hypertrophy Continue Lasix. Pulm referral on DC for sleep study and PFTs as out-patient. 3. CKD 3 - stable. 4. CRF sec to COPD - on 2L via [place]. Stable. Continue Symbicort. 5. HTN - Continue Nifedipine, Valsartan, Coreg. 6. Dementia - Continue Donepezil. 7. Gout - Continue Allopurinol. 8. Dementia - continue Donepezil. 9. HLD -Continue Statin 10. CJ - continue Ferrous Sulphate 11. CAD s/p [place] - Continue Aspirin, BB, Statin. 12. Cerebrovascular Disease - Continue Aspirin, Statin. ACS excluded, recent negative Stress test. Medically optimized for discharge. Cardiology out-patient follow up.
[2019-10-19 13:46] VITALS: BP 123/50; PULSE 71; TEMP 98
--- NOTE | 2019-10-19 17:10 | DS ---
Physical Exam: SUBJECTIVE: Patient seen and examined. Patient states that she feels much better. Denies chest pain, palpitations, SOB, abd pain, fever, chills, headache , dizziness, N/V/D. No acute events overnight. Patient ok with going home. OBJECTIVE: Vital Signs Period Temp Pulse Resp BP Sys/Christensen Pulse Ox Last 24 Hr 97.8 F-99.0 F 65-81 16-18 106-143/50-61 97-100 PHYSICAL EXAM GENERAL: The patient is awake, alert, and fully oriented, in no acute distress. HEAD: Normal with no signs of trauma. EYES: PERRL, EOMI ENT: moist mucous membranes. NECK: Trachea midline, full range of motion, supple. LUNGS: Breath sounds equal, clear to auscultation bilaterally, no wheezes, no crackles, no accessory muscle use. HEART: Regular rate and rhythm, S1, S2 without murmur, rub or gallop. ABDOMEN: Soft, nontender, nondistended, normoactive bowel sounds, no guarding, no rebound EXTREMITIES: 2+ pulses, warm, well-perfused, trace edema of bilateral lower extremities NEUROLOGICAL: Normal speech, gait not observed. sensation intact throughout PSYCH: Normal mood, normal affect. SKIN: Warm, dry, normal turgor, no rashes or lesions noted. LABS Laboratory Results - last 24 hr 10/18/19 20:40 Troponin I 0.04 HOSPITAL COURSE: Date of Admission:10/18/19 Date of Discharge: 10/19/19 68 y/o/f with a PMHx of asthma, HFpEF, COPD (on home 2L), CAD, HTN, dementia, HLD, gout who presented for chest tightness. Patient admitted to rule out ACS. EKG did not show any signs of ischemic changes. Recent ECHO showed EF of 55%, mild concentric LVH and mild LA dilation. Stress test on 10/08/18 was negative. Trops were negative x3, no events on tele monitoring. Patient with history of CHF but no signs of exacerbation. Home medications were continued appropriately. Patient medically stable for discharge. Patient to follow up with pulm for sleepy study and PFTs as outpatient. Patient to also follow up with cardiology, PCP, and nephrology after discharge. No changes were made to patient's medications. Minutes to complete discharge: 36 Discharge Summary Problems reviewed: Yes Reason For Visit: CHEST PAIN Condition: Stable - Instructions Diet, Activity, Other Instructions: You were admitted due to chest tightness. Your EKG did not show any signs of a heart attack. We continued your home medications appropriately while you were admitted. Please take care to follow up with the below mentioned physicians after discharge. During your last admission you were recommended to have a sleepy study and pulmonary function tests done by the milking system installer. Continue to take all of your other home medications as prescribed. REFERRALS: Please see your primary care doctor, Dr. Manju Dickson, within 1 week. Please see your geometry teacher, Dr. Shaan Ortega, within 1 week. Please see your spin table operator, Dr. Mohan Rosado, within 1 week. Please see the milking system installer, Dr. Mir Ghosh, within 1 week. SPECIAL INSTRUCTIONS You will need to have kidney function tests in 1 week, you may obtain these through your primary care doctor. You are advised to see the milking system installer to have a sleep study and pulmonary function tests. If you have any symptoms of shortness of breath, chest pain, fevers, increased cough and sputum production, increased fluid in your legs, increased confusion, or any other general feelings of unwellness, please call 911 or go to your nearest emergency room. Referrals: Timothy Jin MD [Staff Physician] - Manju Dickson MD [Non Staff, Medical] - Shaan Ortega MD [Staff Physician] - Mohan Rosado MD [Staff Physician] - Disposition: HOME - Home Medications Comprehensive Discharge Medication List: Ambulatory Orders Allopurinol [Zyloprim -] 100 mg PO DAILY 09/10/18 Donepezil HCl 10 mg PO HS 09/10/18 Calcium Carbonate [Calcium] 600 mg PO DAILY 07/17/19 Ergocalciferol (Vitamin D2) [Vitamin D2] 25 mcg PO DAILY 07/17/19 Ferrous Sulfate 325 mg PO BID #60 tablet 07/25/19 Carvedilol 3.125 mg PO BID 08/08/19 Nifedipine [Nifedipine ER] 90 mg PO DAILY 08/08/19 Albuterol 0.083% Nebulizer Malorie [Ventolin 0.083% Nebulizer Soln -] 1 neb NEB Q4H PRN 08/09/19 Aspirin [ASA -] 81 mg PO DAILY tab.chew 08/09/19 Valsartan [Diovan] 80 mg PO DAILY #30 tablet 08/16/19 Fluticasone Propion/Salmeterol [Wixela 250-50 Inhub] 1 each IH BID 08/28/19 Atorvastatin Ca [Lipitor] 80 mg PO HS 10/07/19 Apixaban [Eliquis] 5 mg PO DAILY 10/08/19 Furosemide [Lasix -] 40 mg PO DAILY #30 tablet 10/08/19 Hydralazine HCl 50 mg PO TID 10/08/19 This patient is new to me today: Yes Date on this admission: 10/19/19 Emergency Visit: Yes ED Registration Date: 10/18/19 Care time: The patient presented to the Emergency Department on the above date and was hospitalized for further evaluation of their emergent condition. Critical Care patient: No - Discharge Referral Referred to [facility] Med [facility] No ATTENDING PHYSICIAN STATEMENT I saw and evaluated the patient. I reviewed the resident's note and discussed the case with the resident. I agree with the resident's findings and plan as documented. SUBJECTIVE: OBJECTIVE: ASSESSMENT AND PLAN:
== END 2019-10-19 17:05 | disposition home or self-care (01) ==
LOC: JER 02:51 → JERBED 05:40 → J4S 13:56
PROC: 3E013GC Introduction of Other Therapeutic Substance into Subcutaneous Tissue, Percutaneous Approach (ICD-10-PCS; principal; 2019-10-18)
PROC: 3E0F7GC Introduction of Other Therapeutic Substance into Respiratory Tract, Via Natural or Artificial Opening (ICD-10-PCS; 2019-10-18)
DX: R07.89 Other chest pain (principal); I13.0 Hypertensive heart and chronic kidney disease with heart failure and stage 1 through stage 4 chronic kidney disease, or unspecified chronic kidney disease; N18.3 Chronic kidney disease, stage 3 (moderate); I50.9 Heart failure, unspecified; E78.5 Hyperlipidemia, unspecified; J44.9 Chronic obstructive pulmonary disease, unspecified; I25.10 Atherosclerotic heart disease of native coronary artery without angina pectoris; I25.2 Old myocardial infarction; F03.90 Unspecified dementia, unspecified severity, without behavioral disturbance, psychotic disturbance, mood disturbance, and anxiety; M10.9 Gout, unspecified; G40.909 Epilepsy, unspecified, not intractable, without status epilepticus; Z79.82 Long term (current) use of aspirin; Z91.013 Allergy to seafood; Z99.81 Dependence on supplemental oxygen
CPT/HCPCS: 36415; 71045-TC-FY; 80053; 82550; 83735; 83880; 84484; 85025; 85610; 85730; 93005; 93010; 94640; 96372; 99285-25; G0378; J1644

== ENCOUNTER 2019-11-01 22:00 | Inpatient (IN) | payer OTHER ==
[2019-11-01 22:11] VITALS: BMI 41.4
[2019-11-01] MEDS ORDERED: ACETAMINOPHEN 500 MG TABLET (FP) PO ONE (23:12)
--- NOTE | 2019-11-01 23:32 | PDOC ---
History of Present Illness - General Chief Complaint: Chest Pain Stated Complaint: CHEST PAIN Time Seen by Provider: 11/01/19 22:31 History Source: Patient, Family (daughter), Old Records Exam Limitations: Dementia - History of Present Illness Initial Comments: 11/01/19 23:29 69y F with PMH of Diastolic CHF, COPD/Asthma (on 2L), HTN, HLD, DM, CVA (with L sided weakness), recent admission 2w ago for chest pain presenting to ED via EMS for chest tightness and SOB when moving from the bed to her chair. Daughter gave patient albuterol which did not help, EMS was then called. Per EMS, pt was saturating 100% on RA, bp was normal. Pt was given sublingual nitro and ASA with resolution of symptoms. Pt does not have complaints at this time. Last stress and echo with normal EF and no EKG changes on stress. Denies chest pain, SOB right now, increased leg swelling, weight gain, weight loss, orthopnea, fevers, chills, cough, congestion, recent travel, sick contacts. Complaining of R arm pain with movement due to sleeping in a weird position. Has not taken anything for the pain. PMD: Randolph Cards: Adan Pulm: ? PMH: see hpi Meds: see med rec Allergies: nkda Past History - Past Medical History Allergies/Adverse Reactions: Allergies Allergy/AdvReac Type Severity Reaction Status Date / Time No Known Drug Allergies Allergy Verified 11/01/19 22:09 Shellfish Allergy Uncoded 11/01/19 22:09 Home Medications: Ambulatory Orders Allopurinol [Zyloprim -] 100 mg PO DAILY 09/10/18 Donepezil HCl 10 mg PO HS 09/10/18 Calcium Carbonate [Calcium] 600 mg PO DAILY 07/17/19 Ergocalciferol (Vitamin D2) [Vitamin D2] 25 mcg PO DAILY 07/17/19 Ferrous Sulfate 325 mg PO BID #60 tablet 07/25/19 Carvedilol 3.125 mg PO BID 08/08/19 Nifedipine [Nifedipine ER] 90 mg PO DAILY 08/08/19 Albuterol 0.083% Nebulizer Malorie [Ventolin 0.083% Nebulizer Soln -] 1 neb NEB Q4H PRN 08/09/19 Aspirin [ASA -] 81 mg PO DAILY tab.chew 08/09/19 Valsartan [Diovan] 80 mg PO DAILY #30 tablet 08/16/19 Fluticasone Propion/Salmeterol [Wixela 250-50 Inhub] 1 each IH BID 08/28/19 Atorvastatin Ca [Lipitor] 80 mg PO HS 10/07/19 Apixaban [Eliquis] 5 mg PO DAILY 10/08/19 Furosemide [Lasix -] 40 mg PO DAILY #30 tablet 10/08/19 Hydralazine HCl 50 mg PO TID 10/08/19 Asthma: Yes CVA: Yes COPD: Yes CHF: Yes Dementia: Yes HTN: Yes Hypercholesterolemia: Yes Seizures: Yes (EPILEPTIC SEIZURES) - Immunization History TDAP Vaccination: Yes Immunization Up to Date: Yes - Psycho Social/Smoking Cessation Hx Smoking Status: No Smoking History: Never smoked Have you smoked in the past 12 months: No Number of Cigarettes Smoked Daily: 20 If you are a former smoker, when did you quit?: 2018 Information on smoking cessation initiated: No 'Breaking Loose' booklet given: 09/10/18 Hx Alcohol Use: No Drug/Substance Use Hx: No Substance Use Type: None Hx Substance Use Treatment: No Review of Systems - Review of Systems Constitutional: No: Symptoms Reported HEENTM: No: Symptoms Reported Respiratory: Yes: See HPI Cardiac (ROS): Yes: See HPI ABD/GI: No: Symptoms Reported : No: Symptoms Reported Musculoskeletal: Yes: See HPI Integumentary: No: Symptoms Reported Neurological: No: Symptoms reported *Physical Exam - Vital Signs Last Vital Signs Temp Pulse Resp BP Pulse Ox 97.7 F 85 20 144/76 99 11/01/19 22:09 11/01/19 22:09 11/01/19 22:09 11/01/19 22:09 11/01/19 22:09 - Physical Exam General Appearance: Yes: Appropriately Dressed, Obese. No: Apparent Distress HEENT: positive: EOMI, FLOR, Normal ENT Inspection Neck: positive: Trachea midline, Supple Respiratory/Chest: positive: Lungs Clear, Normal Breath Sounds. negative: Respiratory Distress, Accessory Muscle Use, Labored Respiration, Rapid RR, Decreased Breath Sounds, Crackles, Rales, Rhonchi, Stridor, Wheezing Cardiovascular: positive: Regular Rhythm, Regular Rate, S1, S2. negative: Edema , JVD, Murmur Gastrointestinal/Abdominal: positive: Normal Bowel Sounds, Soft. negative: Tender Musculoskeletal: positive: Other (pain with passive ROM of RUE. no deformities, signs of external trauma. ). negative: CVA Tenderness Extremity: positive: Normal Capillary Refill, Pedal Edema. negative: Swelling, Calf Tenderness, Erythema Integumentary: positive: Normal Color, Dry, Warm Neurologic: positive: gyroscopic instrument tester II-XII NML intact, Fully Oriented, Alert, Normal Mood/ Affect, Normal Response, Motor Strength 02/04 ED Treatment Course - LABORATORY CBC & Chemistry Diagram: 11/01/19 23:25 11/01/19 23:25 - RADIOLOGY Radiology Studies Ordered: Category Date Time Status CHEST X-RAY PORTABLE* [RAD] Stat Radiology 11/01/19 22:47 Ordered Medical Decision Making - Medical Decision Making 11/02/19 01:58 69y F with PMH of diastolic HF, HTN, HLD, CVA, Dementia, COPD/Asthma presenting for sob and chest tightness which resolved after nitroglycerine and ASA. asymptomatic at this time. vitals wnl, on 2L NC. low suspicion for PE given normal vitals and resolution of symptoms, no tachypnea. given that patient had resolution of symptoms with nitro and asa makes CV pathology more likely than pulmonary. this is patient's 3rd ED visit this month for similar symptoms, did not see cardiology on previous admission 2 weeks ago. Pt has multiple comorbidities and would benefit from admission for evaluation of SOB and to be seen by cardiology this visit. labs wnl, trop negative, bnp not elevated, cxr does not show infiltrates, consolidations or congestion. ekg: sinues with pac at 73bpm. no rm or depressions. q waves in inferior leads ; similar to prior ekg. endorsed to hospitalist. Discharge - Discharge Information Problems reviewed: Yes Clinical Impression/Diagnosis: Shortness of breath Condition: Stable - Admission Yes - Follow up/Referral - Patient Discharge Instructions - Post Discharge Activity
[2019-11-01 23:44] LABS: BASO % 0.7 % (0-2.0); EOS % 3.3 % (0-4.5); HEMATOCRIT 32.3 % (32.4-45.2); HEMOGLOBIN 10.5 GM/dL (10.7-15.3); LYMPH % 28.2 % (8-40); MCH 28.7 pg (25.7-33.7); MCHC 32.5 g/dl (32.0-36.0); MEAN CELL VOLUME 88.4 fl (80-96); MEAN PLT VOLUME 9.3 fl (7.5-11.1); MONO % 8.8 % (3.8-10.2); PLATELET COUNT 249 K/MM3 (134-434); RBC 3.66 M/mm3 (3.60-5.2); RDW 21.8 % (11.6-15.6); WHITE BLOOD COUNT 7.3 K/mm3 (4.0-10.0)
[2019-11-01] MEDS ORDERED: ACETAMINOPHEN 325 MG TABLET (FP) ONE (23:46)
--- NOTE | 2019-11-01 23:49 | PDOC ---
Attending Attestation - Resident Resident Name: SunshineYodit - ED Attending Attestation I have performed the following: I have examined & evaluated the patient, The case was reviewed & discussed with the resident, I agree w/resident's findings & plan, Exceptions are as noted - HPI HPI: 11/01/19 23:43 69 F with h/o Diastolic CHF, CAD, COPD/Asthma (on 2L), HTN, HLD, DM, CVA (with L sided weakness) presenting to ED with chest pain. Pt reports transient episode of chest pain associated with SOB that lasted a few minutes before resolving spontaneously. Pt denies any recent worsening of her BLE swelling. Denies orthopnea. Currently denies any CP/SOB. - Physicial Exam PE: 11/01/19 23:46 "GENERAL: Awake, alert, and fully oriented, in no acute distress. HEAD: No signs of trauma EYES: PERRLA, EOMI, sclera anicteric, conjunctiva clear ENT: Auricles normal inspection, hearing grossly normal, nares patent, oropharynx clear without exudates. Moist mucosa NECK: Nontender, no stepoffs, Normal ROM, supple, no lymphadenopathy, JVD, or masses LUNGS: Breath sounds equal, clear to auscultation bilaterally. No wheezes, and no crackles HEART: Regular rate and rhythm, normal S1 and S2, no murmurs, rubs or gallops ABDOMEN: Soft, nontender, normoactive bowel sounds. No guarding, no rebound. No masses EXTREMITIES: Normal range of motion, no edema. No clubbing or cyanosis. No cords, erythema, or tenderness NEUROLOGICAL: Cranial nerves II through XII intact. 5/5 strength and sensation in all extremities, Normal speech, normal gait, normal cerebellar function SKIN: Warm, Dry, normal turgor, no rashes or lesions noted. - Medical Decision Making 11/01/19 23:50 69 F with CP/SOB. Has h/o CAD. EKG today without ischemic changes. Pt does not clinically appear volume overloaded but will evaluate for CHF flare as well. - Labs, trop, BNP - CXR
[2019-11-01 23:55] LABS: INR 1.04 (0.83-1.09); PROTHROMBIN TIME (PATIENT) 12.3 SEC (9.7-13.0)
[2019-11-02 00:02] LABS: ADD RBC MORPHOLOGY YES
[2019-11-02 00:15] LABS: BILIRUBIN,TOTAL 0.2 mg/dL (0.2-1); BLOOD UREA NITROGEN 41.6 mg/dL (7-18); CALCIUM 9.4 mg/dL (8.5-10.1); MAGNESIUM 2.1 mg/dL (1.8-2.4); N-TERMINAL BNP 944.9 pg/ml (5-125); TOT PROT 7.2 g/dl (6.4-8.2)
--- NOTE | 2019-11-02 01:06 | PN ---
Teaching Attending Note Name of Resident: Obi Silva ATTENDING PHYSICIAN STATEMENT I saw and evaluated the patient. I reviewed the resident's note and discussed the case with the resident. I agree with the resident's findings and plan as documented. SUBJECTIVE: Patient is a 68 year old woman with a PMH of Asthma/COPD (on 2L NC home O2), CAD , HFpEF, Morbid obesity, HTN, Dementia, TIA, Gout, CKD, ?Paroxysmal Afib and Multiple recent admissions (this is the [address] admission to [facility] in less than 4 months for Chest pain/SOB) presenting via EMS for chest tightness and SOB when moving from the bed to her chair. Daughter gave patient albuterol which did not help, EMS was then called. Per EMS, she was saturating 100% on RA, BP was normal. Patient was given sublingual nitro and ASA with resolution of symptoms. Patient does not have complaints chest pain and SOB at this time. Denies increased leg swelling, weight gain, weight loss, orthopnea, fevers, chills, cough, congestion, dysuria, frequency, diarrhea, nausea, headache or vomiting. Complaining of right arm pain with movement due to sleeping in a weird position. Has not taken anything for the pain. Denies alcohol, tobacco or illicit drug use. No sick contacts or recent travels. Her outpatient Head Of Business Development Dr Mir Mims confirmed that patient was briefly on Eliquis due to TTE showing thrombus but subsequent MENA at [facility] didnot show thrombus so Eliquis was stopped. OBJECTIVE: Alert Vital Signs Period Temp Pulse Resp BP Sys/Christensen Pulse Ox Last 24 Hr 97.7 F-98.2 F 75-85 13-20 139-144/55-76 99-100 HEENT: No Jaundice, eye redness or discharge, PERRLA, EOMI. Normocephalic, atraumatic. External ears are normal and hearing is grossly intact. No nasal discharge. Neck: Supple, nontender. No palpable adenopathy or thyromegaly. No JVD Chest: Good effort. Diminished breath sounds. Clear to percussion. Heart: Regular. No S3, rub or murmur Abdomen: Not distended, soft, nontender and no HSM. No rebound or guarding. Normal bowel sounds. Ext: Peripheral pulses intact. Leg edema. Tender right shoulder with limited ROM - distal motor and sensory function intact. Skin: Warm and dry. No petechiae, rash or ecchymosis. Neuro: Alert. Oriented x3. CN 2-12 grossly intact. Sensation grossly intact in all four extremities and DTR are symmetric. Psych: Appropriate mood and affect. Good insight. Home Medications Medication Instructions Recorded Allopurinol [Zyloprim -] 100 mg PO DAILY 09/10/18 Donepezil HCl 10 mg PO HS 09/10/18 Calcium Carbonate [Calcium] 600 mg PO DAILY 07/17/19 Ergocalciferol (Vitamin D2) 25 mcg PO DAILY 07/17/19 [Vitamin D2] Ferrous Sulfate 325 mg PO BID #60 tablet 07/25/19 Carvedilol 3.125 mg PO BID 08/08/19 Nifedipine [Nifedipine ER] 90 mg PO DAILY 08/08/19 Albuterol 0.083% Nebulizer Malorie 1 neb NEB Q4H PRN 08/09/19 [Ventolin 0.083% Nebulizer Soln -] Aspirin [ASA -] 81 mg PO DAILY tab.chew 08/09/19 Valsartan [Diovan] 80 mg PO DAILY #30 tablet 08/16/19 Fluticasone Propion/Salmeterol 1 each IH BID 08/28/19 [Wixela 250-50 Inhub] Atorvastatin Ca [Lipitor] 80 mg PO HS 10/07/19 Apixaban [Eliquis] 5 mg PO DAILY 10/08/19 Furosemide [Lasix -] 40 mg PO DAILY #30 tablet 10/08/19 Hydralazine HCl 50 mg PO TID 10/08/19 Abnormal Lab Results 11/01/19 11/01/19 23:25 23:25 Hgb 10.5 L Hct 32.3 L RDW 21.8 H Chloride 111 H Anion Gap 6 L BUN 41.6 H Creatinine 2.0 H AST 13 L B-Natriuretic Peptide 944.9 H Albumin 3.0 L ASSESSMENT AND PLAN: 1. Chest tightness/SOB - Likely exacerbation of diastolic CHF. Will admit to telemetry to rule out ACS. CXR shows cardiomegaly, apical atelectasis/scarring, unfolded aorta, hilar prominence and RLL atelectasis. Recent ECHO form 2018 showed normal LV systolic function and mild concentric LV hypertrophy. No EKG changes on stress test from 2019. Will get Xray of her right shoulder and if negative and symptoms persist would ask the day team to consider a CT scan. Use tylenol PRN for pain control. EKG shows NSR, PAC, LAE, inferior and anterior infarcts of undetermined age - different from her recent EKGs. Initial troponin is negative. Will repeat both to rule out ACS. Will give IV lasix, restrict dietary salt intake and get daily standing weight. It is possible that obstructive sleep apnea, obesity- hypoventilation syndrome and most important, recurrent aspirations may be contributing to her episodic bouts of self-limited SOB/chest tightness. Its worth noting that she tends to have the symptoms at the end of the day after a full stomach and upon lying down. Consult GI and consider 6 weeks course of Protonix 40 mg BID. Will continue comprehensive care for all of patients comorbid conditions including Duoneb PRN for COPD. Will contact her Pharmacy during the day to do proper medication reconciliation - since she may not be taking a lot of the drugs that keep reappearing on her medication list, including Eliquis. 2. Hypoalbuminemia - Possibly due to combined effects of malnutrition and inflammation associated with comorbid chronic conditions. Will ensure adequate dietary protein intake and also consult imaging technologist. 3. CKD - Has had recent nephrologic workup. Will consult nephrology and avoid nephrotoxic agents such as NSAIDS, aminoglycosides, contrast dyes and certain Alternative medicine products. 4. Anemia - Likely multifactorial including CKD, iron deficiency from occult blood loss and chronic inflammation. Iron saturation from 07/18/2019 was 4%. Will benefit from IV iron supplementation and Procrit therapy. Had EGD and Colonoscopy in 07/2019. EGD showed ?angiodysplastic lesion in duodenum and colonoscopy showed ?rectosigmoid polyps and diverticulosis, but no active bleeding site. 5. Morbid obesity Counseled on the risks associated with morbid obesity. Will provide patient all the necessary assistance, counseling and positive reinforcement to facilitate weight loss. Consult imaging technologist. 6. Hypertension - Restart suitable outpatient antihypertensive drugs when clinically appropriate. Revise regimen to ensure [id number] excellent BP control and chemical dependency counselor patient on the injurious effects of uncontrolled hypertension. Nonpharmacologic measures to control hypertension like weight loss , salt restriction and exercise discussed. Importance of adherence to treatment regimen and attainment of normotension emphasized. 7. DVT prophylaxis - Heparin 5000u sq tid. 8. Advance directives - Full code
--- NOTE | 2019-11-02 03:53 | HP ---
CHIEF COMPLAINT: SOB Chest discomfort Rt shoulder pain PCP: Dr. Dickson HISTORY OF PRESENT ILLNESS: This is a 68 year old female with PMH of asthma, HFpEF, COPD (on home 2L), CAD, HTN, dementia, HLD, gout, and multiple recent admissions (6 over the past 3 months) for suspected CHF exacerbations. She was brought to the ER with complaints of chest tightness, SOB, and right arm pain which began shortly before presenting to the ER. She was lying in bed when she felt short of breath. She sat herself up, and her daughter helped administer her inhaler. This resolved her SOB, but the daughter decided to call EMS. EMS arrived at the scene and transported her to the ER. She was given sublingual nitro and aspirin by EMS. At some point her chest tightness resolved, although it should be noted that the patient is not entirely clear about the timeline of her chest tightness , and during previous admissions her chest tightness similarly resolved en route to the ER, even without SL Nitro. Therefore, the resolution of her chest discomfort may or may not be associated with SL nitro. Upon presenting to the ER, her SOB and chest discomfort had resolved, but her right arm pain persisted. The pain is in her right shoulder and arm, which began this evening, acute in onset without identifiable precipitating events such as trauma, rated 7/10 in intensity, sharp/aching in quality, constant in nature, non-radiating, aggravated by movement, and with no alleviating factors. She denies any chest pain, SOB, nausea, vomiting, fevers, chills, dysuria, poyuria, palpitations, recent illnesses, sick contacts, or recent travel. After her last admission, she was asked to follow outpatient for PFT and sleep tests, which she has been unable to do. She states that she has been abiding by a low salt diet, but it appears that she eats the same meals as everyone else in her home, which may suggest she is not adhering to a low salt diet. ER course was notable for: (1) EKG NSR, inferior and anterior infarcts of undetermined age (2) Trop negative (3) Cr 2.0 Recent Travel: denies PAST MEDICAL HISTORY: See HPI PAST SURGICAL HISTORY: Hyesterectomy Social History: Smoking: former smoker, quit in 2018 Alcohol: denies Drugs: denies Allergies No Known Drug Allergies Allergy (Verified 11/01/19 22:09) Shellfish Allergy (Uncoded 11/01/19 22:09) HOME MEDICATIONS: Home Medications Medication Instructions Recorded Allopurinol [Zyloprim -] 100 mg PO DAILY 09/10/18 Donepezil HCl 10 mg PO HS 09/10/18 Calcium Carbonate [Calcium] 600 mg PO DAILY 07/17/19 Ergocalciferol (Vitamin D2) 25 mcg PO DAILY 07/17/19 [Vitamin D2] Ferrous Sulfate 325 mg PO BID #60 tablet 07/25/19 Carvedilol 3.125 mg PO BID 08/08/19 Nifedipine [Nifedipine ER] 90 mg PO DAILY 08/08/19 Albuterol 0.083% Nebulizer Malorie 1 neb NEB Q4H PRN 08/09/19 [Ventolin 0.083% Nebulizer Soln -] Aspirin [ASA -] 81 mg PO DAILY tab.chew 08/09/19 Valsartan [Diovan] 80 mg PO DAILY #30 tablet 08/16/19 Fluticasone Propion/Salmeterol 1 each IH BID 08/28/19 [Wixela 250-50 Inhub] Atorvastatin Ca [Lipitor] 80 mg PO HS 10/07/19 Apixaban [Eliquis] 5 mg PO DAILY 10/08/19 Furosemide [Lasix -] 40 mg PO DAILY #30 tablet 10/08/19 Hydralazine HCl 50 mg PO TID 10/08/19 REVIEW OF SYSTEMS CONSTITUTIONAL: Absent: fever, chills, diaphoresis, generalized weakness, malaise, loss of appetite, weight change HEENT: Absent: rhinorrhea, nasal congestion, throat pain, throat swelling, difficulty swallowing, mouth swelling, ear pain, eye pain, visual changes CARDIOVASCULAR: Absent: chest pain, syncope, palpitations, irregular heart rate, lightheadedness , peripheral edema RESPIRATORY: Absent: cough, shortness of breath, dyspnea with exertion, orthopnea, wheezing, stridor, hemoptysis GASTROINTESTINAL: Absent: abdominal pain, abdominal distension, nausea, vomiting, diarrhea, constipation, melena, hematochezia GENITOURINARY: Absent: dysuria, frequency, urgency, hesitancy, hematuria, flank pain, genital pain MUSCULOSKELETAL: Rt shoulder pain Absent: myalgia, arthralgia, joint swelling, back pain, neck pain SKIN: Absent: rash, itching, pallor HEMATOLOGIC/IMMUNOLOGIC: Absent: easy bleeding, easy bruising, lymphadenopathy, frequent infections ENDOCRINE: Absent: unexplained weight gain, unexplained weight loss, heat intolerance, cold intolerance NEUROLOGIC: Absent: headache, focal weakness or paresthesias, dizziness, unsteady gait, seizure, mental status changes, bladder or bowel incontinence PSYCHIATRIC: Absent: anxiety, depression, suicidal or homicidal ideation, hallucinations. PHYSICAL EXAMINATION Vital Signs - 24 hr 11/01/19 11/01/19 22:09 22:25 Temperature 97.7 F 98.2 F Pulse Rate 85 75 Pulse Rate [ 75 Right Radial] Respiratory 20 13 Rate Blood Pressure 144/76 Blood Pressure 139/55 L [Left Arm] O2 Sat by Pulse 99 100 Oximetry (%) GENERAL: Awake, alert, and fully oriented, in no acute distress. HEAD: Normal with no signs of trauma. EYES: FIDENCIO, EOMI EARS, NOSE, THROAT: Ears normal, nares patent, oropharynx clear without exudates. Moist mucous membranes. LUNGS: decreased breath sounds B/L, no wheezes, crackles HEART: Regular rate and rhythm, normal S1 and S2 without murmur, rub or gallop. ABDOMEN: Soft, nontender, not distended, normoactive bowel sounds, no guarding, no rebound, no masses. No hepatomegaly or splenomegaly. MUSCULOSKELETAL: Rt sided pain elicited by abduction/external rotation UPPER EXTREMITIES: 2+ pulses, warm, well-perfused. No cyanosis. No clubbing. No peripheral edema. LOWER EXTREMITIES: 2+ pulses, 2+ pitting edema B/L NEUROLOGICAL: Cranial nerves II-XII intact. Normal speech. PSYCHIATRIC: Cooperative. Good eye contact. Appropriate mood and affect. SKIN: Warm, dry, normal turgor, no rashes or lesions noted, normal capillary refill. Laboratory Results - last 24 hr 11/01/19 11/01/19 11/01/19 23:25 23:25 23:25 WBC 7.3 RBC 3.66 Hgb 10.5 L Hct 32.3 L MCV 88.4 MCH 28.7 MCHC 32.5 RDW 21.8 H Plt Count 249 MPV 9.3 Absolute Neuts (auto) 4.3 Neutrophils % 59.0 Lymphocytes % 28.2 D Monocytes % 8.8 Eosinophils % 3.3 Basophils % 0.7 Nucleated RBC % 0 PT with INR INR Sodium 144 Potassium 4.0 Chloride 111 H Carbon Dioxide 27 Anion Gap 6 L BUN 41.6 H Creatinine 2.0 H Est GFR (CKD-EPI)AfAm 28.39 Est GFR (CKD-EPI)NonAf 24.50 Random Glucose 97 Calcium 9.4 Magnesium 2.1 Total Bilirubin 0.2 AST 13 L ALT 13 Alkaline Phosphatase 92 Creatine Kinase 119 Troponin I 0.04 B-Natriuretic Peptide 944.9 H Total Protein 7.2 Albumin 3.0 L 11/01/19 23:25 WBC RBC Hgb Hct MCV MCH MCHC RDW Plt Count MPV Absolute Neuts (auto) Neutrophils % Lymphocytes % Monocytes % Eosinophils % Basophils % Nucleated RBC % PT with INR 12.30 INR 1.04 Sodium Potassium Chloride Carbon Dioxide Anion Gap BUN Creatinine Est GFR (CKD-EPI)AfAm Est GFR (CKD-EPI)NonAf Random Glucose Calcium Magnesium Total Bilirubin AST ALT Alkaline Phosphatase Creatine Kinase Troponin I B-Natriuretic Peptide Total Protein Albumin ASSESSMENT/PLAN: 68 year old female with PMH of asthma, HFpEF, COPD (on home 2L), CAD, HTN, dementia, HLD, gout, and multiple recent admissions (6 over the past 3 months) for suspected CHF exacerbations. She was brought to the ER with complaints of chest tightness, SOB, and right arm pain which began shortly before presenting to the ER #Acute SOB - May be due to CHF exacerbation. Although frequent admissions over the past few months with similar presentations may be attributed to difficulty in compliance by the patient, other causes must be considered. - Given her symptoms usually seem to occur when she is lying down at night ( possibly after a meal), acute transient bronchospasms 2/2 aspiration may be possible. GI consult placed for recommendation regarding trial of 6 weeks of PPI - CXR shows R hilar prominence and RLL atelectasis - Echo 07/21 showed normal LV function with LV hypertrophy - Lasix IV 40mg administered - Strict I&O monitoring #Rt shoulder pain - Suspecting arthritic changes, no neurological signs - X Ray Rt shoulder ordered - Tylenol 650 PO PRN Q6 ordered for pain control #ACS r/o - Trop negative, repeat ordered for AM - EKG NSR, inferior and anterior infarcts of undetermined age, repeat ordered in AM #Hx of anemia - Microcytic, as per previous records. - EGD and colonoscopy performed in July, angiodysplastic lesion in duodenum, colonoscopy showed rectosigmoid polyps, diverticulosis, no active bleeding - Monitor H/H, IV venofer may be started #Hx of COPD - Duonebs PRN Q4 - Continue home meds once confirmed #CKD - Cr 2.0, was 1.6 previously, with drop in Gfr from 40s to 28 now - Renal consulted for optimization of treatment in light of worsening renal failure #Hx of HTN - Continue home nifedipine, valsartan, coreg once confirmed #Dementia - Continue home donepezil once confirmed #Gout - Continue home allopurinol once confirmed #Hx of CAD - Continue home aspirin once confirmed #FEN - Na controlled diet #DVT - Heparin 5000 SQ ATTENDING PHYSICIAN STATEMENT I saw and evaluated the patient. I reviewed the resident's note and discussed the case with the resident. I agree with the resident's findings and plan as documented. SUBJECTIVE: OBJECTIVE: ASSESSMENT AND PLAN:
[2019-11-02 04:45] LABS: ANISOCYTOSIS 1+
[2019-11-02] MEDS ORDERED: ACETAMINOPHEN 325 MG TABLET (FP) PO ONE (04:45)
[2019-11-02] MEDS ORDERED: FUROSEMIDE 40 MG/4 ML INJECTABLE VIAL IVPUSH ONE (04:45)
[2019-11-02] MEDS ORDERED: ALBUTEROL SO4 2.5/IPRATROPIUM 0.5 INH SOL 3 ML VIAL.NEB. NEB ONE ×2 (05:27→07:18)
[2019-11-02] MEDS: ALBUTEROL SO4 2.5/IPRATROPIUM 0.5 INH SOL 3 ML VIAL.NEB. NEB SCH ×4 (05:32→15:26)
[2019-11-02] MEDS ORDERED: ALBUTEROL SO4 0.083% IH SOL 2.5 MG/3 ML VIAL.NEB. NEB PRN (08:27)
--- NOTE | 2019-11-02 08:27 | PN ---
Physical Exam: SUBJECTIVE: Patient seen and examined OBJECTIVE: Vital Signs Period Temp Pulse Resp BP Sys/Christensen Pulse Ox Last 24 Hr 97.7 F-98.2 F 75-85 13-20 126-144/55-76 96-100 GENERAL: The patient is awake, alert, and fully oriented, in no acute distress. HEAD: Normal with no signs of trauma. EYES: PERRL, extraocular movements intact, sclera anicteric, conjunctiva clear. No ptosis. ENT: Ears normal, nares patent, oropharynx clear without exudates, moist mucous membranes. NECK: Trachea midline, full range of motion, supple. LUNGS: Breath sounds equal, clear to auscultation bilaterally, no wheezes, no crackles, no accessory muscle use. HEART: Regular rate and rhythm, S1, S2 without murmur, rub or gallop. ABDOMEN: Soft, nontender, nondistended, normoactive bowel sounds, no guarding, no rebound, no hepatosplenomegaly, no masses. EXTREMITIES: 2+ pulses, warm, well-perfused, no edema. NEUROLOGICAL: Cranial nerves II through XII grossly intact. Normal speech, gait not observed. PSYCH: Normal mood, normal affect. SKIN: Warm, dry, normal turgor, no rashes or lesions noted Laboratory Results - last 24 hr 11/01/19 11/01/19 11/01/19 23:25 23:25 23:25 WBC 7.3 RBC 3.66 Hgb 10.5 L Hct 32.3 L MCV 88.4 MCH 28.7 MCHC 32.5 RDW 21.8 H Plt Count 249 MPV 9.3 Absolute Neuts (auto) 4.3 Neutrophils % 59.0 Lymphocytes % 28.2 D Monocytes % 8.8 Eosinophils % 3.3 Basophils % 0.7 Nucleated RBC % 0 Hypochromia 2+ Anisocytosis 1+ PT with INR INR Sodium 144 Potassium 4.0 Chloride 111 H Carbon Dioxide 27 Anion Gap 6 L BUN 41.6 H Creatinine 2.0 H Est GFR (CKD-EPI)AfAm 28.39 Est GFR (CKD-EPI)NonAf 24.50 Random Glucose 97 Calcium 9.4 Magnesium 2.1 Total Bilirubin 0.2 AST 13 L ALT 13 Alkaline Phosphatase 92 Creatine Kinase 119 Troponin I 0.04 B-Natriuretic Peptide 944.9 H Total Protein 7.2 Albumin 3.0 L 11/01/19 11/02/19 23:25 05:20 WBC RBC Hgb Hct MCV MCH MCHC RDW Plt Count MPV Absolute Neuts (auto) Neutrophils % Lymphocytes % Monocytes % Eosinophils % Basophils % Nucleated RBC % Hypochromia Anisocytosis PT with INR 12.30 INR 1.04 Sodium Potassium Chloride Carbon Dioxide Anion Gap BUN Creatinine Est GFR (CKD-EPI)AfAm Est GFR (CKD-EPI)NonAf Random Glucose Calcium Magnesium Total Bilirubin AST ALT Alkaline Phosphatase Creatine Kinase Troponin I 0.04 B-Natriuretic Peptide Total Protein Albumin Active Medications Generic Name Dose Route Start Last Admin Trade Name Freq PRN Reason Stop Dose Admin Acetaminophen 650 mg 11/02/19 09:00 Tylenol - PO Q6H PRN Fever Or Pain Albuterol/Ipratropium 1 amp 11/02/19 04:00 11/02/19 07:21 Duoneb - NEB 1 amp RQ4H ARA Administration Home Medications Medication Instructions Recorded Allopurinol [Zyloprim -] 100 mg PO DAILY 09/10/18 Donepezil HCl 10 mg PO HS 09/10/18 Calcium Carbonate [Calcium] 600 mg PO DAILY 07/17/19 Ergocalciferol (Vitamin D2) 25 mcg PO DAILY 07/17/19 [Vitamin D2] Ferrous Sulfate 325 mg PO BID #60 tablet 07/25/19 Carvedilol 3.125 mg PO BID 08/08/19 Nifedipine [Nifedipine ER] 90 mg PO DAILY 08/08/19 Albuterol 0.083% Nebulizer Malorie 1 neb NEB Q4H PRN 08/09/19 [Ventolin 0.083% Nebulizer Soln -] Aspirin [ASA -] 81 mg PO DAILY tab.chew 08/09/19 Valsartan [Diovan] 80 mg PO DAILY #30 tablet 08/16/19 Fluticasone Propion/Salmeterol 1 each IH BID 08/28/19 [Wixela 250-50 Inhub] Atorvastatin Ca [Lipitor] 80 mg PO HS 10/07/19 Apixaban [Eliquis] 5 mg PO DAILY 10/08/19 Furosemide [Lasix -] 40 mg PO DAILY #30 tablet 10/08/19 Hydralazine HCl 50 mg PO TID 10/08/19 ASSESSMENT/PLAN:
[2019-11-02] MEDS ORDERED: ACETAMINOPHEN 325 MG TABLET (FP) PO PRN (09:00)
--- NOTE | 2019-11-02 09:53 | CON.CARD ---
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 She denies cough, orthopnea, paroxysmal nocturnal dyspnea or orthopnea. She denies fever or chills. She denies nausea, vomiting, diarrhea or abdominal pain. She denies headache or lightheadedness. Her outpatient [employer] Staff Officer Dr Mir Mims confirmed that patient was briefly on Eliquis due to TTE showing thrombus but subsequent MENA at [facility] didnot show thrombus so Eliquis was stopped. 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 Cardio/Vascular: Yes: CHF (Diastolic dysfunction), HTN, Hyperlipdemia Pulmonary: Yes: Asthma, COPD Gastrointestinal: Yes: Diverticulitis - Past Surgical History Past Surgical History: Yes: Hysterectomy - Alcohol/Substance Use Hx Alcohol Use: No History of Substance Use: reports: None - Smoking History Smoking history: Never smoked Have you smoked in the past 12 months: No Aproximately how many cigarettes per day: 20 If you are a former smoker, when did you quit?: 2018 Home Medications - Allergies Allergies/Adverse Reactions: Allergies Allergy/AdvReac Type Severity Reaction Status Date / Time No Known Drug Allergies Allergy Verified 11/01/19 22:09 Shellfish Allergy Uncoded 11/01/19 22:09 - Home Medications Home Medications: Ambulatory Orders Allopurinol [Zyloprim -] 100 mg PO DAILY 09/10/18 Donepezil HCl 10 mg PO HS 09/10/18 Calcium Carbonate [Calcium] 600 mg PO DAILY 07/17/19 Ergocalciferol (Vitamin D2) [Vitamin D2] 25 mcg PO DAILY 07/17/19 Ferrous Sulfate 325 mg PO BID #60 tablet 07/25/19 Carvedilol 3.125 mg PO BID 08/08/19 Nifedipine [Nifedipine ER] 90 mg PO DAILY 08/08/19 Albuterol 0.083% Nebulizer Malorie [Ventolin 0.083% Nebulizer Soln -] 1 neb NEB Q4H PRN 08/09/19 Aspirin [ASA -] 81 mg PO DAILY tab.chew 08/09/19 Valsartan [Diovan] 80 mg PO DAILY #30 tablet 08/16/19 Fluticasone Propion/Salmeterol [Wixela 250-50 Inhub] 1 each IH BID 08/28/19 Atorvastatin Ca [Lipitor] 80 mg PO HS 10/07/19 Apixaban [Eliquis] 5 mg PO DAILY 10/08/19 Furosemide [Lasix -] 40 mg PO DAILY #30 tablet 10/08/19 Hydralazine HCl 50 mg PO TID 10/08/19 Review of Systems - Review of Systems Cardiovascular: reports: Chest Pain, Shortness of Breath Vital Signs: Vital Signs Temperature 98.2 F 11/01/19 22:25 Pulse Rate 78 11/02/19 07:01 Respiratory Rate 18 11/02/19 07:01 Blood Pressure 126/73 11/02/19 07:01 O2 Sat by Pulse Oximetry (%) 96 11/02/19 07:01 Constitutional: Yes: No Distress, Calm Neck: Yes: Supple Respiratory: Yes: Regular, CTA Bilaterally Gastrointestinal: Yes: Normal Bowel Sounds, Soft Cardiovascular: Yes: Regular Rate and Rhythm JVD: No Carotid Bruit: No Heart Sounds: Yes: S1, S2 Murmur: Yes: Systolic Murmur, Grade 1 Edema: No - Other Data Labs, Other Data: CBC, BMP 11/01/19 23:25 11/01/19 23:25 INR, PTT INR 1.04 (0.83-1.09) 11/01/19 23:25 Troponin, BNP 11/01/19 11/01/19 11/02/19 23:25 23:25 05:20 Troponin I 0.04 0.04 B-Natriuretic Peptide 944.9 H Troponin, BNP 11/01/19 11/01/19 11/02/19 23:25 23:25 05:20 Troponin I 0.04 0.04 B-Natriuretic Peptide 944.9 H NSR @ 73 PAC, PRWP Ejection Fraction %: LVEF > or = 40 % Imaging - Results Chest X-ray: Report Reviewed (No acute changes) Problem List - Problems (1) Shortness of breath Code(s): R06.02 - SHORTNESS OF BREATH (2) Chest pain Code(s): R07.9 - CHEST PAIN, UNSPECIFIED Qualifiers: Chest pain type: unspecified Qualified Code(s): R07.9 - Chest pain, unspecified (3) CHF (congestive heart failure) Code(s): I50.9 - HEART FAILURE, UNSPECIFIED Qualifiers: Heart failure type: unspecified Heart failure chronicity: chronic Qualified Code(s): I50.9 - Heart failure, unspecified (4) Coronary artery disease Code(s): I25.10 - ATHSCL HEART DISEASE OF [place] CORONARY ARTERY W/O ANG PCTRS Qualifiers: Coronary Disease-Associated Artery/Lesion type: [place] artery [place] vs. transplanted heart: [place] heart Associated angina: without angina Qualified Code(s): I25.10 - Atherosclerotic heart disease of [place] coronary artery without angina pectoris (5) Dementia Code(s): F03.90 - UNSPECIFIED DEMENTIA WITHOUT BEHAVIORAL DISTURBANCE Qualifiers: Dementia type: unspecified type (6) HTN (hypertension) Code(s): I10 - ESSENTIAL (PRIMARY) HYPERTENSION Qualifiers: Hypertension type: essential hypertension Qualified Code(s): I10 - Essential (primary) hypertension (7) Morbid obesity Code(s): E66.01 - MORBID (SEVERE) OBESITY DUE TO EXCESS CALORIES (8) Acute on chronic diastolic heart failure Code(s): I50.33 - ACUTE ON CHRONIC DIASTOLIC (CONGESTIVE) HEART FAILURE (9) CKD (chronic kidney disease) Code(s): N18.9 - CHRONIC KIDNEY DISEASE, UNSPECIFIED Qualifiers: Chronic kidney disease stage: stage 2 (mild) Qualified Code(s): N18.2 - Chronic kidney disease, stage 2 (mild) (10) Hypercholesteremia Code(s): E78.00 - PURE HYPERCHOLESTEROLEMIA, UNSPECIFIED (11) Old inferolateral myocardial infarction Code(s): I25.2 - OLD MYOCARDIAL INFARCTION (12) TIA (transient ischemic attack) Code(s): G45.9 - TRANSIENT CEREBRAL ISCHEMIC ATTACK, UNSPECIFIED Assessment/Plan 08/09/2019 Lexiscan Myoview: No ischemia, LVEF 60% 07/17/2019 Echo: Normal LV fxn, mild cLVH, normal RV size and fxn, mod LAE 07/2019 Echo [facility]: Normal LV size and fxn inferolateral and basal inferior RWMA 2012 LH: DATA ANALYST REPORT WRITER RCA 1. Chronic LV diastolic failure (HFpEF) euvolemic 2. CAD s/p MO with DATA ANALYST REPORT WRITER of RCA 3. COPD 4. HTN 5. Hypercholesterolemia 6. Cerebrovascular disease 7. Diverticular disease 8. Organic brain/dementia 9. Acute on CKD 10. OSAS 11. 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 Ruled out [place] 2. Oral diuresis with monitor diuretic response, renal fxn and electrolytes 3. Increase Carvedilol 6.25 mg BID, Valsartan 80 mg QD, Lipitor 80 qd, ASA 81 qd and Procardia XL 90 mg QD, d/you hydralazine 4. Bronchodilator, O2 to keep SpO2 >90% and CPAP as needed 5. Sleep study and PFTs as outpatient 6. Thank you for consultative opportunity
[2019-11-02] MEDS ORDERED: ALLOPURINOL 100 MG TABLET (FP) PO SCH (10:00)
[2019-11-02] MEDS ORDERED: CALCIUM CARBONATE 650 MG TABLET PO SCH (10:00)
[2019-11-02] MEDS ORDERED: CARVEDILOL 25 MG TABLET (FP) PO SCH (10:00)
[2019-11-02] MEDS ORDERED: FUROSEMIDE 40 MG TABLET (FP) PO SCH (10:00)
[2019-11-02] MEDS ORDERED: FERROUS SO4 325 MG TABLET (FP) PO SCH (10:00)
[2019-11-02] MEDS ORDERED: ASPIRIN 81 MG CHEWABLE TABLETS PO SCH (10:00)
[2019-11-02] MEDS ORDERED: VALSARTAN 80 MG TABLET (UD) PO SCH (10:00)
[2019-11-02] MEDS ORDERED: NIFEdipine E.R. 90 MG TABLET PO SCH (10:00)
[2019-11-02] MEDS ORDERED: ERGOCALCIFEROL 25 MCG PO SCH (10:00)
[2019-11-02] MEDS ORDERED: CARVEDILOL 6.25 MG TABLET (FP) PO SCH (10:30)
[2019-11-02] MEDS ORDERED: FERROUS SO4 325 MG TABLET (FP) ONE (10:52)
[2019-11-02] MEDS ORDERED: VALSARTAN 80 MG TABLET (UD) ONE (10:52)
[2019-11-02] MEDS ORDERED: FUROSEMIDE 40 MG TABLET (FP) ONE (10:52)
[2019-11-02] MEDS ORDERED: ASPIRIN 81 MG CHEWABLE TABLETS ONE (10:52)
[2019-11-02] MEDS ORDERED: ALLOPURINOL 100 MG TABLET (FP) ONE (10:52)
[2019-11-02 13:54] VITALS: TEMP 98.5
[2019-11-02] MEDS ORDERED: hydrALAZINE HCL 50 MG TABLET (FP) PO SCH (14:00)
--- NOTE | 2019-11-02 15:02 | EKG ---
Test Reason : Blood Pressure : / mmHG Vent. Rate : 076 BPM Atrial Rate : 076 BPM P-R Int : 196 ms QRS Dur : 108 ms QT Int : 406 ms P-R-T Axes : 059 066 081 degrees QTc Int : 456 ms SINUS RHYTHM WITH PREMATURE ATRIAL COMPLEXES POSSIBLE LEFT ATRIAL ENLARGEMENT CANNOT RULE OUT INFERIOR INFARCT (CITED ON OR BEFORE 09-SEP-2018) CANNOT RULE OUT ANTERIOR INFARCT (CITED ON OR BEFORE 09-SEP-2018) ABNORMAL ECG WHEN COMPARED WITH ECG OF 01-NOV-2019 22:30, QUESTIONABLE CHANGE IN INITIAL FORCES OF ANTERIOR LEADS Confirmed by LASHAWN VILLATORO MD ([id number]) on 11/02/2019 3:02:20 PM Referred By: Confirmed By:LASHAWN VILLATORO MD
--- NOTE | 2019-11-02 15:07 | EKG ---
Test Reason : Blood Pressure : / mmHG Vent. Rate : 073 BPM Atrial Rate : 073 BPM P-R Int : 128 ms QRS Dur : 108 ms QT Int : 404 ms P-R-T Axes : 049 045 075 degrees QTc Int : 445 ms SINUS RHYTHM WITH PREMATURE ATRIAL COMPLEXES POSSIBLE LEFT ATRIAL ENLARGEMENT INFERIOR INFARCT (CITED ON OR BEFORE 09-SEP-2018) ANTERIOR INFARCT (CITED ON OR BEFORE 09-SEP-2018) ABNORMAL ECG WHEN COMPARED WITH ECG OF 18-OCT-2019 03:09, PREMATURE ATRIAL COMPLEXES ARE NOW PRESENT QUESTIONABLE CHANGE IN INITIAL FORCES OF ANTERIOR LEADS NONSPECIFIC T WAVE ABNORMALITY, WORSE IN LATERAL LEADS Confirmed by LASHAWN VILLATORO MD ([id number]) on 11/02/2019 3:06:54 PM Referred By: Confirmed By:LASHAWN VILLATORO MD
[2019-11-02 16:24] VITALS: BP 128/77; PULSE 18
--- NOTE | 2019-11-02 18:37 | CONSULT ---
Consult Consult Specialty:: Nephrology Reason for Consultation:: MARISOL - History of Present Illness Chief Complaint: shortness of breath History of Present Illness: Pt is a 69 year old female with pmhx of asthma, chf, copd, cad, htn, dementia, hld and chf who presents with shortness of breath and chest tightness. SHe was found to have elevated dental floss packer and I was called to evaluate her. She denies dysuria or hematuria. She denies history of CKD. She denies nsaid use. She says she does take 40 mg of furosemide at home daily. She currently says that she feels well and wants to go home. She denies family hx of ckd. She does however have abnormal dental floss packer values on old labs. 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 Cardio/Vascular: Yes: CHF (Diastolic dysfunction), HTN, Hyperlipdemia Pulmonary: Yes: Asthma, COPD Gastrointestinal: Yes: Diverticulitis - Past Surgical History Past Surgical History: Yes: Hysterectomy - Alcohol/Substance Use Hx Alcohol Use: No History of Substance Use: reports: None - Smoking History Smoking history: Never smoked Have you smoked in the past 12 months: No Aproximately how many cigarettes per day: 20 If you are a former smoker, when did you quit?: 2018 Home Medications - Allergies Allergies/Adverse Reactions: Allergies Allergy/AdvReac Type Severity Reaction Status Date / Time No Known Drug Allergies Allergy Verified 11/01/19 22:09 Shellfish Allergy Uncoded 11/01/19 22:09 - Home Medications Home Medications: Ambulatory Orders Allopurinol [Zyloprim -] 100 mg PO DAILY 09/10/18 Donepezil HCl 10 mg PO HS 09/10/18 Calcium Carbonate [Calcium] 600 mg PO DAILY 07/17/19 Ergocalciferol (Vitamin D2) [Vitamin D2] 25 mcg PO DAILY 07/17/19 Ferrous Sulfate 325 mg PO BID #60 tablet 07/25/19 Nifedipine [Nifedipine ER] 90 mg PO DAILY 08/08/19 Aspirin [ASA -] 81 mg PO DAILY tab.chew 08/09/19 Valsartan [Diovan] 80 mg PO DAILY #30 tablet 08/16/19 Fluticasone Propion/Salmeterol [Wixela 250-50 Inhub] 1 each IH BID 11/26/19 Atorvastatin Ca [Lipitor] 80 mg PO HS 10/07/19 Apixaban [Eliquis] 5 mg PO DAILY 10/08/19 Furosemide [Lasix -] 40 mg PO DAILY #30 tablet 10/08/19 Albuterol 2.5/Ipratropium 0.5 [Duoneb -] 1 amp NEB Q4H PRN #1 box 11/02/19 Carvedilol [Coreg] 6.25 mg PO BID #60 tablet 11/02/19 Nebulizer and Compressor [Comp-Air Nebulizer System] 1 each MC Q4H PRN #1 each 11/02/19 Family Medical History Family History: Denies Review of Systems - Review of Systems Constitutional: reports: Malaise Eyes: reports: No Symptoms HENT: reports: No Symptoms Neck: reports: No Symptoms Cardiovascular: reports: Shortness of Breath Respiratory: reports: SOB, SOB on Exertion Gastrointestinal: reports: No Symptoms Genitourinary: reports: No Symptoms Musculoskeletal: reports: No Symptoms Integumentary: reports: No Symptoms Neurological: reports: No Symptoms Endocrine: reports: No Symptoms Hematology/Lymphatic: reports: No Symptoms Psychiatric: reports: No Symptoms Physical Exam Vital Signs: Vital Signs Temperature 98.5 F 11/02/19 13:53 Pulse Rate 18 L 11/02/19 16:23 Respiratory Rate 18 11/02/19 16:23 Blood Pressure 128/77 11/02/19 16:23 O2 Sat by Pulse Oximetry (%) 98 11/02/19 16:23 Constitutional: Yes: Calm Eyes: Yes: Conjunctiva Clear HENT: Yes: Atraumatic Neck: Yes: Supple Cardiovascular: Yes: S1, S2 Respiratory: Yes: CTA Bilaterally Gastrointestinal: Yes: Soft Renal/: Yes: WNL Musculoskeletal: Yes: WNL Edema: No Neurological: Yes: Oriented Psychiatric: Yes: Oriented Labs: CBC, BMP 11/01/19 23:25 11/01/19 23:25 Laboratory Tests 08/28/19 10/07/19 10/08/19 09:26 03:20 06:30 Sodium Potassium Creatinine 1.5 H 1.6 H 1.7 H 10/18/19 11/01/19 04:00 23:25 Sodium 144 Potassium 4.0 Creatinine 1.6 H 2.0 H Imaging - Results Chest X-ray: Report Reviewed Problem List - Problems (1) Chest pain Code(s): R07.9 - CHEST PAIN, UNSPECIFIED Qualifiers: Chest pain type: unspecified Qualified Code(s): R07.9 - Chest pain, unspecified (2) Anemia Code(s): D64.9 - ANEMIA, UNSPECIFIED Qualifiers: Anemia type: iron deficiency (3) Morbid obesity Code(s): E66.01 - MORBID (SEVERE) OBESITY DUE TO EXCESS CALORIES (4) CKD (chronic kidney disease) Code(s): N18.9 - CHRONIC KIDNEY DISEASE, UNSPECIFIED Qualifiers: Chronic kidney disease stage: stage 2 (mild) Qualified Code(s): N18.2 - Chronic kidney disease, stage 2 (mild) Assessment/Plan Current Medications Generic Name Dose Route Start Last Admin Trade Name Freq PRN Reason Stop Dose Admin Acetaminophen 650 mg 11/02/19 09:00 Tylenol - PO Q6H PRN Fever Or Pain Albuterol Sulfate 1 amp 11/02/19 08:27 Ventolin 0.083% Nebulizer Soln - NEB Q4H PRN ASTHMA Albuterol/Ipratropium 1 amp 11/02/19 04:00 11/02/19 15:26 Duoneb - NEB 1 amp RQ4H ARA Administration Allopurinol 100 mg 11/02/19 10:00 11/02/19 10:54 Zyloprim - PO 100 mg DAILY [facility] Administration Aspirin 81 mg 11/02/19 10:00 11/02/19 10:53 Asa - PO 81 mg DAILY [facility] Administration Atorvastatin Calcium 80 mg 11/02/19 22:00 Lipitor - PO [facility] Calcium Carbonate 650 mg 11/02/19 10:00 11/02/19 10:53 Calcium Carbonate - PO 650 mg DAILY [facility] Administration Carvedilol 6.25 mg 11/02/19 10:30 Coreg - PO BID [facility] Donepezil HCl 10 mg 11/02/19 22:00 Aricept - PO [facility] Ferrous Sulfate 325 mg 11/02/19 10:00 11/02/19 10:53 Feosol - PO 325 mg BID [facility] Administration Furosemide 40 mg 11/02/19 10:00 11/02/19 10:54 Lasix - PO 40 mg DAILY [facility] Administration Non-Formulary Medication 25 mcg 11/02/19 10:00 Ergocalciferol (Vitamin D2) [Vitamin D2] PO DAILY [facility] Valsartan 80 mg 11/02/19 10:00 11/02/19 10:53 Diovan - PO 80 mg DAILY ARA Administration Impression 1. CKD with acute component 2. obesity 3. htn 4. hld 5. chf 6. copd 7. cad Plan - check ua - check kidney and bladder ultrasound - will need outpt follow up - will make more recs after reviewing urine - may have to hold valsartan if renal function worsens
[2019-11-02] MEDS ORDERED: ATORVASTATIN CA 80 MG TABLET (FP) PO SCH (22:00)
[2019-11-02] MEDS ORDERED: DONEPEZIL HCL 10 MG TABLET (FP) PO SCH (22:00)
--- NOTE | 2019-11-03 17:20 | DS ---
Physical Exam: 69 F h/o morbid obesity, asthma, HFpEF, COPD, CAD, HTN, dementia, HLD who presents with shortness of breath and chest tightness. Multiple admissions for SOB and chest discomfort where cardiac workup in the past was unremarkable for cardiac ischemia. Patient was evaluated by our cardiology service whom recommended outpatient workup w/ PFT and NPSG and ruled out [place]. Patient ambulating around ED, comfortable, endorses improvement of SOB, and ready for discharge. Her outpatient Credit Correspondence Clerk Dr Mir Mims confirmed that patient was briefly on Eliquis due to TTE showing thrombus but subsequent MENA at [facility] didn't show thrombus so Eliquis was stopped. PE VSS GA comfortable, AAxox3, ambulating around ED Constitutional: Yes: Calm Eyes: Yes: Conjunctiva Clear HENT: Yes: Atraumatic Neck: Yes: Supple Cardiovascular: Yes: S1, S2 Respiratory: Yes: CTA Bilaterally Gastrointestinal: Yes: Soft Renal/: Yes: WNL Musculoskeletal: Yes: WNL Edema: No Neurological: Yes: Oriented Psychiatric: Yes: Oriented Home Medications Medication Instructions Recorded Allopurinol [Zyloprim -] 100 mg PO DAILY 09/10/18 Donepezil HCl 10 mg PO HS 09/10/18 Calcium Carbonate [Calcium] 600 mg PO DAILY 07/17/19 Ergocalciferol (Vitamin D2) 25 mcg PO DAILY 07/17/19 [Vitamin D2] Ferrous Sulfate 325 mg PO BID #60 tablet 07/25/19 Nifedipine [Nifedipine ER] 90 mg PO DAILY 08/08/19 Aspirin [ASA -] 81 mg PO DAILY tab.chew 08/09/19 Valsartan [Diovan] 80 mg PO DAILY #30 tablet 08/16/19 Fluticasone Propion/Salmeterol 1 each IH BID 08/28/19 [Wixela 250-50 Inhub] Atorvastatin Ca [Lipitor] 80 mg PO HS 10/07/19 Apixaban [Eliquis] 5 mg PO DAILY 10/08/19 Furosemide [Lasix -] 40 mg PO DAILY #30 tablet 10/08/19 Albuterol 2.5/Ipratropium 0.5 1 amp NEB Q4H PRN #1 box 11/02/19 [Duoneb -] Carvedilol [Coreg] 6.25 mg PO BID #60 tablet 11/02/19 Nebulizer and Compressor [Comp-Air 1 each MC Q4H PRN #1 each 11/02/19 Nebulizer System] 69 F h/o morbid obesity, asthma, HFpEF, COPD, CAD, HTN, dementia, HLD who presents with shortness of breath and chest tightness. FL ruled out. Likely 2/2 fluid overload state due to non-compliance to fluid restriction diet in view of HFpEF. Multiple admissins for the same. CAD As per cardiology recs 1. Ruled out [place] 2. Oral diuresis with monitor diuretic response, renal fxn and electrolytes 3. Increase Carvedilol 6.25 mg BID, Valsartan 80 mg QD, Lipitor 80 qd, ASA 81 qd and Procardia XL 90 mg QD, d/you hydralazine 4. Bronchodilator, O2 to keep SpO2 >90% and CPAP as needed 5. Sleep study and PFTs as outpatient HTn cont. home BP meds HFpEF reinforced fluid restriction, salt restriction, explained this to daughter as well, as per daughter patient tends to be in kitchen alot pouring herself alot of cups of water daily due to dry mouth, reinforced she must adhere to <1-2L/ day and follow up with attic fans mechanic at [facility]. ?Thrombus on MENA in the past Her outpatient Credit Correspondence Clerk Dr Mir Mims confirmed that patient was briefly on Eliquis due to TTE showing thrombus but subsequent MENA at [facility] didn't show thrombus so Eliquis was stopped. HLD cont. statin COPD cont. home meds, inhalers PFTs/NPSG as outpatient Disposition: DC home with follow up with attic fans mechanic, and patient's daughter already made appointment with checking clerk as outpatient from last admission. Discharge medications: Continue home medications Minutes to complete discharge: 35 Discharge Summary Problems reviewed: Yes Reason For Visit: SHORTNESS OF BREATH Condition: Good - Instructions Diet, Activity, Other Instructions: You were admitted for evaluation of your shortness of breath. You were evaluated by our cardiology service and cleared from them for discharge. You may return back to your normal activity as tolerated. Please follow up with Dr. Bhatia (Market Relationship Manager) in 1 week for further evaluation of your shortness of breath. Please take your prescription medications as tolerated. Your Coreg has been increased to 6.25mg twice a day and a new prescription has been sent to your pharmacy. If you have shortness of breath, chest pain, dizziness, loss of consciousness, fall, abdominal pain, bleeding or confusion please go to the nearest emergency room immediately. Referrals: Manju Dickson MD [Primary Care Provider] - Romeo Bhatia MD [Staff Physician] - Disposition: HOME - Home Medications Comprehensive Discharge Medication List: Ambulatory Orders Allopurinol [Zyloprim -] 100 mg PO DAILY 09/10/18 Donepezil HCl 10 mg PO HS 09/10/18 Calcium Carbonate [Calcium] 600 mg PO DAILY 07/17/19 Ergocalciferol (Vitamin D2) [Vitamin D2] 25 mcg PO DAILY 07/17/19 Ferrous Sulfate 325 mg PO BID #60 tablet 07/25/19 Nifedipine [Nifedipine ER] 90 mg PO DAILY 08/08/19 Aspirin [ASA -] 81 mg PO DAILY tab.chew 08/09/19 Valsartan [Diovan] 80 mg PO DAILY #30 tablet 08/16/19 Fluticasone Propion/Salmeterol [Wixela 250-50 Inhub] 1 each IH BID 08/28/19 Atorvastatin Ca [Lipitor] 80 mg PO HS 10/07/19 Apixaban [Eliquis] 5 mg PO DAILY 10/08/19 Furosemide [Lasix -] 40 mg PO DAILY #30 tablet 10/08/19 Albuterol 2.5/Ipratropium 0.5 [Duoneb -] 1 amp NEB Q4H PRN #1 box 11/02/19 Carvedilol [Coreg] 6.25 mg PO BID #60 tablet 11/02/19 Nebulizer and Compressor [Comp-Air Nebulizer System] 1 each MC Q4H PRN #1 each 11/02/19 This patient is new to me today: Yes Date on this admission: 11/03/19 Emergency Visit: Yes ED Registration Date: 11/02/19 Care time: The patient presented to the Emergency Department on the above date and was hospitalized for further evaluation of their emergent condition. Critical Care patient: No - Discharge Referral Referred to [facility] No
== END 2019-11-02 18:39 | disposition home or self-care (01) | DRG 291 ==
LOC: JER 22:00 → JERBED 11-02 00:36
PROVIDERS: ADMIT Internal Medicine
DX: I13.0 Hypertensive heart and chronic kidney disease with heart failure and stage 1 through stage 4 chronic kidney disease, or unspecified chronic kidney disease (principal); I50.33 Acute on chronic diastolic (congestive) heart failure; I69.354 Hemiplegia and hemiparesis following cerebral infarction affecting left non-dominant side; J98.11 Atelectasis; Z68.41 Body mass index [BMI] 40.0-44.9, adult; N17.9 Acute kidney failure, unspecified; J44.9 Chronic obstructive pulmonary disease, unspecified; E78.5 Hyperlipidemia, unspecified; F03.90 Unspecified dementia, unspecified severity, without behavioral disturbance, psychotic disturbance, mood disturbance, and anxiety; I25.10 Atherosclerotic heart disease of native coronary artery without angina pectoris; E66.01 Morbid (severe) obesity due to excess calories; M10.9 Gout, unspecified; I48.0 Paroxysmal atrial fibrillation; Z99.81 Dependence on supplemental oxygen; E88.09 Other disorders of plasma-protein metabolism, not elsewhere classified; M25.511 Pain in right shoulder; E78.00 Pure hypercholesterolemia, unspecified; I25.2 Old myocardial infarction; N18.2 Chronic kidney disease, stage 2 (mild); Z91.11 Patient's noncompliance with dietary regimen; G47.33 Obstructive sleep apnea (adult) (pediatric); D50.9 Iron deficiency anemia, unspecified
CPT/HCPCS: 36415; 71045-TC-FY; 73030-TC-RT-FY; 80053; 82550; 83735; 83880; 84484; 85025; 85610; 93005; 93010; 99285-25

== ENCOUNTER 2019-11-11 00:28 | Emergency (ER) | payer OTHER ==
[2019-11-11 00:57] VITALS: BMI 40.7
--- NOTE | 2019-11-11 01:19 | PDOC ---
History of Present Illness - General Chief Complaint: Shortness of Breath Stated Complaint: DIFF BREATHING Time Seen by Provider: 11/11/19 01:18 History Source: Patient Exam Limitations: No Limitations - History of Present Illness Initial Comments: 11/11/19 01:23 69yF w PMHx of HFpEF, COPD/Asthma (on 2L), HTN, HLD, DM, CVA (with L sided weakness) presenting w sudden onset SOB while laying in bed last night thinking about family member. Received a nebulizer and rescue inhaler without relief. Denies fevers, cough, chest pain. Scheduled appointment w Dr Jannette perez for PFT next week. Admitted almost every week for chest pain/SOB attributed to COPD and advanced cardiac dysfunction. Past History - Past Medical History Allergies/Adverse Reactions: Allergies Allergy/AdvReac Type Severity Reaction Status Date / Time No Known Allergies Allergy Verified 11/11/19 00:58 Home Medications: Ambulatory Orders Allopurinol [Zyloprim -] 100 mg PO DAILY 09/10/18 Donepezil HCl 10 mg PO HS 09/10/18 Calcium Carbonate [Calcium] 600 mg PO DAILY 07/17/19 Ergocalciferol (Vitamin D2) [Vitamin D2] 25 mcg PO DAILY 07/17/19 Ferrous Sulfate 325 mg PO BID #60 tablet 07/25/19 Nifedipine [Nifedipine ER] 90 mg PO DAILY 08/08/19 Aspirin [ASA -] 81 mg PO DAILY tab.chew 08/09/19 Valsartan [Diovan] 80 mg PO DAILY #30 tablet 08/16/19 Fluticasone Propion/Salmeterol [Wixela 250-50 Inhub] 1 each IH BID 08/28/19 Atorvastatin Ca [Lipitor] 80 mg PO HS 10/07/19 Apixaban [Eliquis] 5 mg PO DAILY 10/08/19 Furosemide [Lasix -] 40 mg PO DAILY #30 tablet 10/08/19 Albuterol 2.5/Ipratropium 0.5 [Duoneb -] 1 amp NEB Q4H PRN #1 box 11/02/19 Carvedilol [Coreg] 6.25 mg PO BID #60 tablet 11/02/19 Nebulizer and Compressor [Comp-Air Nebulizer System] 1 each MC Q4H PRN #1 each 11/02/19 Asthma: Yes Cardiac Disorders: Yes (CHF) CVA: Yes COPD: Yes CHF: Yes Dementia: Yes HTN: Yes Hypercholesterolemia: Yes Seizures: Yes (EPILEPTIC SEIZURES) - Immunization History TDAP Vaccination: Yes Immunization Up to Date: Yes - Psycho Social/Smoking Cessation Hx Smoking Status: No Smoking History: Former smoker Have you smoked in the past 12 months: No Number of Cigarettes Smoked Daily: 20 If you are a former smoker, when did you quit?: 2018 Information on smoking cessation initiated: No 'Breaking Loose' booklet given: 09/10/18 Hx Alcohol Use: No Drug/Substance Use Hx: No Substance Use Type: None Hx Substance Use Treatment: No Review of Systems - Review of Systems Constitutional: No: Chills, Fever HEENTM: No: Eye Pain, Ear Discharge, Nose Pain, Throat Pain Respiratory: Yes: Shortness of Breath. No: Cough Cardiac (ROS): No: Chest Pain, Palpitations ABD/GI: No: Abdominal Distended, Constipated, Diarrhea, Nausea, Vomiting : No: Burning, Dysuria Musculoskeletal: No: Back Pain, Joint Pain Integumentary: No: Bruising, Rash Neurological: No: Headache, Seizure Psychiatric: No: Anxiety, Depression Endocrine: No: Excessive Sweating, Intolerance to Cold, Intolerance to Heat Hematologic/Lymphatic: No: Anemia, Blood Clots *Physical Exam - Vital Signs Last Vital Signs Temp Pulse Resp BP Pulse Ox 97.7 F 80 20 160/63 100 11/11/19 00:45 11/11/19 00:45 11/11/19 00:45 11/11/19 00:45 11/11/19 00:45 - Physical Exam General Appearance: Yes: Nourished, Appropriately Dressed. No: Apparent Distress HEENT: positive: EOMI, FLOR, Normal Voice, Hearing Grossly Normal. negative: Scleral Icterus (R), Scleral Icterus (L), Nasal Congestion Respiratory/Chest: positive: Lungs Clear, Normal Breath Sounds. negative: Chest Tender, Respiratory Distress, Crackles, Rales, Rhonchi, Stridor, Wheezing Cardiovascular: positive: Regular Rhythm, Regular Rate, S1, S2, Systolic Murmur Gastrointestinal/Abdominal: positive: Normal Bowel Sounds, Flat, Soft. negative : Tender, Organomegaly Extremity: positive: Pedal Edema (+2 to knees christopher) Integumentary: positive: Normal Color, Dry Neurologic: positive: oracle database architect II-XII NML intact, Fully Oriented, Alert, Normal Response, Responsive. negative: Numbness, Confused, Disoriented ED Treatment Course - LABORATORY CBC & Chemistry Diagram: 11/11/19 02:15 11/11/19 03:30 Medical Decision Making - Medical Decision Making 11/11/19 01:40 EKG sinus rhythm w 1st degree AV block, HR 76, QTc 477, Q waves inferior, no ST changes, unchanged CXR cardiomegaly, congestion, bilateral basilar infiltrates, slightly worse than 11/02/19 AST 600 ALT 300 ALP 220 --- 69yF w PMHx of HFpEF, COPD/Asthma (on 2L), HTN, HLD, DM, CVA (with L sided weakness) presenting w sudden onset SOB while laying in bed last night d/t anxiety (symptom onset with bad memory). Low concern for COPD (no wheezing) vs ACS (neg trop, no ST changes) vs CHF exacerbation (BLE swelling not worsened, lower BNP) vs PNA (no consolidation) elevated LFTs d/t viral vs alcoholic hepatitis (pt denies drinking for past 6years). Non tender ABD 100% O2sat on 2L NC (baseline), no respiratory distress DC home w pulm and PCP f/u Discharge - Discharge Information Problems reviewed: Yes Clinical Impression/Diagnosis: SOB (shortness of breath), Elevated LFTs Condition: Good Disposition: HOME - Follow up/Referral Referrals: Manju Dickson MD [Primary Care Provider] - - Patient Discharge Instructions Patient Printed Discharge Instructions: DI for Shortness of Breath Additional Instructions: Follow up with your director of gift planning regarding your breathing and primary care doctor regarding your liver Take nebulizer if you feel short of breath. - Post Discharge Activity
[2019-11-11 02:40] LABS: EOS % 1.6 % (0-4.5); HEMATOCRIT 32.6 % (32.4-45.2); HEMOGLOBIN 10.8 GM/dL (10.7-15.3); LYMPH % 25.7 % (8-40); MCH 29.5 pg (25.7-33.7); MCHC 33.1 g/dl (32.0-36.0); MEAN CELL VOLUME 89.4 fl (80-96); MEAN PLT VOLUME 9.8 fl (7.5-11.1); MONO % 6.1 % (3.8-10.2); NEUT % 65.6 % (42.8-82.8); PLATELET COUNT 294 K/MM3 (134-434); RBC 3.64 M/mm3 (3.60-5.2); RDW 21.5 % (11.6-15.6); WHITE BLOOD COUNT 6.1 K/mm3 (4.0-10.0)
[2019-11-11] MEDS ORDERED: ALBUTEROL SO4 2.5/IPRATROPIUM 0.5 INH SOL 3 ML VIAL.NEB. NEB ONE ×2 (02:47→03:11)
--- NOTE | 2019-11-11 03:12 | PDOC ---
Attending Attestation - Resident Resident Name: AustynAlo - ED Attending Attestation I have performed the following: I have examined & evaluated the patient, The case was reviewed & discussed with the resident, I agree w/resident's findings & plan - HPI HPI: 11/11/19 06:02 Pt comes with SOB and epigastric pain. She has gastritis due to the tomatoes and onion paste that she ate yesterday.She is compliant with her meds. - Physicial Exam PE: 11/11/19 20:57 Pt is obese. She has normal heart and lungs. She has minimal pitting edema of her lower ext. Afebrile neuro intact - Medical Decision Making 11/11/19 20:56 69yF w PMHx of HFpEF, COPD/Asthma (on 2L), HTN, HLD, DM, CVA (with L sided weakness) presenting w sudden onset SOB while laying in bed last night d/t anxiety (symptom onset with bad memory). Pt also mentions that she had eated foods that were acidic. Low concern for COPD (no wheezing) vs ACS (neg trop, no ST changes) vs CHF exacerbation (BLE swelling not worsened, lower BNP) vs PNA ( no consolidation) elevated LFTs d/t viral vs alcoholic hepatitis (pt denies drinking for past 6years). Non tender ABD 100% O2sat on 2L NC (baseline), no respiratory distress (however BNP is 700s) DC home w pulm and PCP f/u 11/11/19 20:57 Pt given lasix IV in the ER and she will be asked to follow with PMD 11/11/19 20:58 Pt advised about her elevated LFTs and she will follow with her GI doc as an outpatient. 11/11/19 20:59 Home with her daughter
[2019-11-11 04:18] LABS: ALBUMIN 2.8 g/dl (3.4-5.0); BILIRUBIN,TOTAL 0.4 mg/dL (0.2-1); CALCIUM 9.7 mg/dL (8.5-10.1); CREATININE 1.6 mg/dL (0.55-1.3); POTASSIUM 4.1 mmol/L (3.5-5.1); TOT PROT 6.9 g/dl (6.4-8.2)
[2019-11-11 04:21] LABS: N-TERMINAL BNP 728.1 pg/ml (5-125)
[2019-11-11 04:45] LABS: ANISOCYTOSIS 2+; MACROCYTOSIS 0; PLATELET ESTIMATE NORMAL
[2019-11-11] MEDS ORDERED: FUROSEMIDE 40 MG/4 ML INJECTABLE VIAL IVPUSH ONE (06:00)
[2019-11-11] MEDS ORDERED: FUROSEMIDE 40 MG/4 ML INJECTABLE VIAL ONE (06:04)
[2019-11-11 06:26] VITALS: BP 147/94; PULSE 76; TEMP 97.8
--- NOTE | 2019-11-11 14:12 | EKG ---
Test Reason : Blood Pressure : / mmHG Vent. Rate : 076 BPM Atrial Rate : 076 BPM P-R Int : 238 ms QRS Dur : 116 ms QT Int : 424 ms P-R-T Axes : 049 025 052 degrees QTc Int : 477 ms SINUS RHYTHM WITH 1ST DEGREE A-V BLOCK POSSIBLE LEFT ATRIAL ENLARGEMENT INFERIOR INFARCT (CITED ON OR BEFORE 09-SEP-2018) POSSIBLE ANTERIOR INFARCT (CITED ON OR BEFORE 09-SEP-2018) ABNORMAL ECG Confirmed by MD NITISH, TAWNYA ([id number]) on 11/11/2019 2:12:22 PM Referred By: Confirmed By:TAWNYA TALBERT MD
== END 2019-11-11 06:26 | disposition home or self-care (01) ==
LOC: JER 00:28
PROC: 3E033GC Introduction of Other Therapeutic Substance into Peripheral Vein, Percutaneous Approach (ICD-10-PCS; principal; 2019-11-11)
DX: F41.9 Anxiety disorder, unspecified (principal); R06.02 Shortness of breath; R10.13 Epigastric pain; I11.0 Hypertensive heart disease with heart failure; I50.9 Heart failure, unspecified; J44.9 Chronic obstructive pulmonary disease, unspecified; J45.998 Other asthma; E11.9 Type 2 diabetes mellitus without complications; E78.5 Hyperlipidemia, unspecified; I69.854 Hemiplegia and hemiparesis following other cerebrovascular disease affecting left non-dominant side; G40.909 Epilepsy, unspecified, not intractable, without status epilepticus; F03.90 Unspecified dementia, unspecified severity, without behavioral disturbance, psychotic disturbance, mood disturbance, and anxiety; Z87.891 Personal history of nicotine dependence
CPT/HCPCS: 36415; 71045-TC-FY; 80053; 82550; 83880; 84484; 85025; 93005; 93010; 96374; 99285-25

== ENCOUNTER 2019-11-22 19:48 | Observation (INO) | payer OTHER ==
[2019-11-22 19:51] VITALS: BMI 42.3
--- NOTE | 2019-11-22 21:03 | PDOC ---
History of Present Illness - General Chief Complaint: Chest Pain Stated Complaint: CHEST PAIN Time Seen by Provider: 11/22/19 20:27 History Source: Patient Exam Limitations: No Limitations - History of Present Illness Initial Comments: 11/22/19 20:56 69 yo female pmh morbid obesity, asthma, HFpEF, COPD (on 2L NC at home), CAD, HTN, HLD, dementia presents to the ED for sudden onset CP. CP resolved prior to arrival to ED after given 1 ASA by EMS. Pt had associated diaphoresis and nausea during episode. Pt has no current medical complaints, denies SOB, back pain, F/C/N/V, changes in bowel or bladder habits Past History - Past Medical History Allergies/Adverse Reactions: Allergies Allergy/AdvReac Type Severity Reaction Status Date / Time No Known Allergies Allergy Verified 11/22/19 19:51 Home Medications: Ambulatory Orders Allopurinol [Zyloprim -] 100 mg PO DAILY 09/10/18 Donepezil HCl 10 mg PO HS 09/10/18 Calcium Carbonate [Calcium] 600 mg PO DAILY 07/17/19 Ergocalciferol (Vitamin D2) [Vitamin D2] 25 mcg PO DAILY 07/17/19 Ferrous Sulfate 325 mg PO BID #60 tablet 07/25/19 Nifedipine [Nifedipine ER] 90 mg PO DAILY 08/08/19 Valsartan [Diovan] 80 mg PO DAILY #30 tablet 08/16/19 Fluticasone Propion/Salmeterol [Wixela 250-50 Inhub] 1 each IH BID 08/28/19 Atorvastatin Ca [Lipitor] 80 mg PO HS 10/07/19 Apixaban [Eliquis] 5 mg PO DAILY 10/08/19 Furosemide [Lasix -] 40 mg PO DAILY #30 tablet 10/08/19 Albuterol 2.5/Ipratropium 0.5 [Duoneb -] 1 amp NEB Q4H PRN #1 box 11/02/19 Carvedilol [Coreg] 6.25 mg PO BID #60 tablet 11/02/19 Pantoprazole Sodium [Protonix] 40 mg PO DAILY #30 tablet. 11/23/19 Asthma: Yes Cardiac Disorders: Yes (CHF) CVA: Yes COPD: Yes CHF: Yes Dementia: Yes HTN: Yes Hypercholesterolemia: Yes Seizures: Yes (EPILEPTIC SEIZURES) - Immunization History TDAP Vaccination: Yes Immunization Up to Date: Yes - Psycho Social/Smoking Cessation Hx Smoking Status: No Smoking History: Never smoked Have you smoked in the past 12 months: No Number of Cigarettes Smoked Daily: 20 If you are a former smoker, when did you quit?: 2018 'Breaking Loose' booklet given: 09/10/18 Hx Alcohol Use: No Drug/Substance Use Hx: No Substance Use Type: None Hx Substance Use Treatment: No Review of Systems - Review of Systems Constitutional: Yes: See HPI HEENTM: Yes: See HPI Respiratory: Yes: See HPI Cardiac (ROS): Yes: See HPI ABD/GI: Yes: See HPI : Yes: See HPI Musculoskeletal: Yes: See HPI Integumentary: Yes: See HPI Neurological: Yes: See HPI *Physical Exam - Vital Signs Last Vital Signs Temp Pulse Resp BP Pulse Ox 98.1 F 72 18 140/70 98 11/22/19 19:49 11/22/19 19:49 11/22/19 19:49 11/22/19 19:49 11/22/19 19:49 - Physical Exam General Appearance: Yes: Nourished, Appropriately Dressed. No: Apparent Distress HEENT: positive: EOMI Neck: positive: Supple. negative: Carotid bruit Respiratory/Chest: positive: Lungs Clear, Normal Breath Sounds. negative: Accessory Muscle Use (`), Rapid RR, Crackles, Rales, Rhonchi, Stridor, Wheezing Cardiovascular: positive: Regular Rhythm, Regular Rate, S1, S2, Edema. negative : JVD, Murmur Vascular Pulses: Dorsalis-Pedis (R): 3+, Doralis-Pedis (L): 3+ Gastrointestinal/Abdominal: positive: Flat, Soft. negative: Distended, Guarding , Rebound, Tenderness Musculoskeletal: negative: CVA Tenderness Extremity: positive: Normal Capillary Refill, Normal Inspection Integumentary: positive: Normal Color, Dry, Warm Neurologic: positive: Fully Oriented, Alert, Normal Mood/Affect, Normal Response Heart Score/ECG Review - History History: Moderately suspicious - Electrocardiogram EKG: Normal - Age Age: >/= 65 - Risk Factors Risk Factors Heart Score: Yes Hx Hypercholesterolemia, Yes Hx Hypertension, Yes Hx Diabetes, Yes Hx Obesity Based on the list above the patient has:: >/=3 risk factors or Hx atherosclerotic disease - Troponin Troponin: </= normal limit - Score Heart Score - Total: 5 ED Treatment Course - LABORATORY CBC & Chemistry Diagram: 11/23/19 05:30 11/23/19 05:30 - RADIOLOGY Radiology Studies Ordered: Category Date Time Status CHEST X-RAY PORTABLE* [RAD] Stat Radiology 11/22/19 20:45 Ordered Medical Decision Making - Medical Decision Making 69 yo female pmh morbid obesity, asthma, HFpEF, COPD (on 2L NC at home), CAD, HTN, HLD, dementia presents to the ED for sudden onset CP. CP resolved prior to arrival to ED after given 1 ASA by EMS. Pt had associated diaphoresis and nausea during episode. Pt has no current medical complaints, denies SOB, back pain, F/C/N/V, changes in bowel or bladder habits EKG NSR 65bpm, no ischemic changes, QTc 428 vitals stable pt appears comfortable, no active complaints however, due to story and risk factors, heart score is 5 and pt requires admission for ACS r/o first trop neg, labs unremarkable pt admitted to hospitalist Discharge - Discharge Information Problems reviewed: Yes Clinical Impression/Diagnosis: Chest pain Qualifiers: Chest pain type: unspecified Qualified Code(s): R07.9 - Chest pain, unspecified Condition: Stable - Admission Yes - Follow up/Referral - Patient Discharge Instructions - Post Discharge Activity
[2019-11-22 22:00] LABS: BASO % 1.1 % (0-2.0); EOS % 3.8 % (0-4.5); HEMATOCRIT 34.8 % (32.4-45.2); HEMOGLOBIN 11.5 GM/dL (10.7-15.3); LYMPH % 30.2 % (8-40); MCH 30.2 pg (25.7-33.7); MEAN CELL VOLUME 91.6 fl (80-96); MEAN PLT VOLUME 9.9 fl (7.5-11.1); MONO % 6.4 % (3.8-10.2); NEUT % 58.5 % (42.8-82.8); PLATELET COUNT 229 K/MM3 (134-434); RDW 18.9 % (11.6-15.6); WHITE BLOOD COUNT 7.2 K/mm3 (4.0-10.0)
[2019-11-22 22:32] LABS: ALBUMIN 3.3 g/dl (3.4-5.0); BILIRUBIN,TOTAL 0.4 mg/dL (0.2-1); BLOOD UREA NITROGEN 34.8 mg/dL (7-18); CALCIUM 9.5 mg/dL (8.5-10.1); CREATININE 1.8 mg/dL (0.55-1.3); MAGNESIUM 2.2 mg/dL (1.8-2.4); N-TERMINAL BNP 1192.7 pg/ml (5-125); POTASSIUM 4.4 mmol/L (3.5-5.1); TOT PROT 7.6 g/dl (6.4-8.2)
--- NOTE | 2019-11-23 01:06 | HP ---
CHIEF COMPLAINT: chest pain PCP: Dr. Dickson HISTORY OF PRESENT ILLNESS: 69 y/o/f with PMHx of asthma, HFpEF, COPD (on home 2L), CAD with history of AL, HTN, dementia, HLD, gout presented to the ED due to chest pain that started this evening. Patient states that the chest pain had resolved by the time she arrived to the ED after she was given aspirin x1 by EMS. Patient denies current chest pain or SOB. She complains of heartburn currently. She states she had some sweating and nausea when she was having chest pain but denies current symptoms. She denies N/V/D, chills, fever, changes in vision, back pain, headache, dysuria. After her last discharge form the hospital she was instructed to have PFTs and a sleep study completed but she not recall having either test done but states that she has seen her PCP in the last 2-3 weeks. She states she has been taking her medications regularly and abides by her fluid restriction and low salt diet. ER course was notable for: (1) EKG NSR @65bpm, no ischemic changes noted. QTc 428 (2) Trop negative @ 0.05 (3) Cr at 1.8. 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 FamHx: HTN, HLD, stroke, Brother with history of DM, older brother who at age 61 from [place] Allergies No Known Allergies Allergy (Verified 11/22/19 19:51) HOME MEDICATIONS: Home Medications Medication Instructions Recorded Allopurinol [Zyloprim -] 100 mg PO DAILY 09/10/18 Donepezil HCl 10 mg PO HS 09/10/18 Calcium Carbonate [Calcium] 600 mg PO DAILY 07/17/19 Ergocalciferol (Vitamin D2) 25 mcg PO DAILY 07/17/19 [Vitamin D2] Ferrous Sulfate 325 mg PO BID #60 tablet 07/25/19 Nifedipine [Nifedipine ER] 90 mg PO DAILY 08/08/19 Aspirin [ASA -] 81 mg PO DAILY tab.chew 08/09/19 Valsartan [Diovan] 80 mg PO DAILY #30 tablet 08/16/19 Fluticasone Propion/Salmeterol 1 each IH BID 08/28/19 [Wixela 250-50 Inhub] Atorvastatin Ca [Lipitor] 80 mg PO HS 10/07/19 Apixaban [Eliquis] 5 mg PO DAILY 10/08/19 Furosemide [Lasix -] 40 mg PO DAILY #30 tablet 10/08/19 Albuterol 2.5/Ipratropium 0.5 1 amp NEB Q4H PRN #1 box 11/02/19 [Duoneb -] Carvedilol [Coreg] 6.25 mg PO BID #60 tablet 11/02/19 Nebulizer and Compressor [Comp-Air 1 each MC Q4H PRN #1 each 11/02/19 Nebulizer System] REVIEW OF SYSTEMS As per HPI PHYSICAL EXAMINATION Vital Signs - 24 hr 11/22/19 19:49 Temperature 98.1 F Pulse Rate 72 Respiratory 18 Rate Blood Pressure 140/70 O2 Sat by Pulse 98 Oximetry (%) GENERAL: Awake, alert, and fully oriented, in no acute distress. HEAD: NC/AT EYES: EOMI, no scleral icterus EARS, NOSE, THROAT: MMM NECK: supple, trachea midline LUNGS: Breath sounds equal, clear to auscultation bilaterally. No wheezes, and no crackles. No accessory muscle use. HEART: RRR, cardiac murmur noted ABDOMEN: Soft, nontender, not distended, normoactive bowel sounds, no guarding, no rebound, no masses MUSCULOSKELETAL: No bony deformities or tenderness. EXTREMITIES: 2+ pulses, warm, well-perfused. No calf tenderness. trace edema of lower extremities NEUROLOGICAL: Normal speech. gait not observed. no facial droop. 5/5 strength upper and lower extremities. sensation intact throughout PSYCHIATRIC: Cooperative. Good eye contact. Appropriate mood and affect. SKIN: Warm, dry, normal turgor, no rashes or lesions noted Laboratory Results - last 24 hr 11/22/19 11/22/19 11/22/19 21:29 21:29 21:29 WBC 7.2 RBC 3.80 Hgb 11.5 Hct 34.8 MCV 91.6 MCH 30.2 MCHC 33.0 RDW 18.9 H Plt Count 229 D MPV 9.9 Absolute Neuts (auto) 4.2 Neutrophils % 58.5 Lymphocytes % 30.2 Monocytes % 6.4 Eosinophils % 3.8 D Basophils % 1.1 Nucleated RBC % 0 Sodium 143 Potassium 4.4 Chloride 111 H Carbon Dioxide 29 Anion Gap 4 L BUN 34.8 H Creatinine 1.8 H Est GFR (CKD-EPI)AfAm 32.25 Est GFR (CKD-EPI)NonAf 27.83 Random Glucose 86 Calcium 9.5 Magnesium 2.2 Total Bilirubin 0.4 AST 18 ALT 31 Alkaline Phosphatase 129 H Creatine Kinase 96 Troponin I 0.05 B-Natriuretic Peptide 1192.7 H Total Protein 7.6 Albumin 3.3 L Influenza A (Rapid) Negative Influenza B (Rapid) Negative ASSESSMENT/PLAN: 69 y/o/f with PMHx of asthma, HFpEF, COPD (on home 2L), CAD with history of AL, HTN, dementia, HLD, gout presented to the ED due to chest pain that started this evening but resolved prior to arrival to ED. #Heartburn - Patient states she does not take medications for heartburn at home - Will start on Protonix 40mg daily #ACS R/O - Initial trop negative, repeat ordered for AM - EKG NSR @65 BPM, QTc 428. Repeat in AM #CHF - BNP at 1192, however patient denies SOB and only had trace edema of lower extremities. unlikely to be CHF exacerbation at this time. - CXR without acute pathology on my read. mild blunting of right costophrenic angle - continue home lasix - Echo on 07/21 showing EF of 55% #Iron Deficiency anemia - Patient on Iron supplements, will continue - EGD and colonoscopy performed in July, angiodysplastic lesion in duodenum, colonoscopy showed rectosigmoid polyps, diverticulosis, no active bleeding #Hx of COPD - Continue home meds: Wixela, Duonebs #CKD - Cr 1.8, around baseline as per previous labs on multiple admissions - Monitor BUN/Cr #Hx of HTN - Continue home Valsartan, Nifedipine, Coreg #Dementia - Continue Donepezil #Gout - Continue allopurinol #Hx of CAD - Continue aspirin - During last admission, as per Dr. Rosado's note: "Her outpatient Analytics Analyst Dr Mir Mims confirmed that patient was briefly on Eliquis due to TTE showing thrombus but subsequent [facility] at [facility] didnot show thrombus so Eliquis was stopped." However patient was discharged on on Eliquis during last admission. Will hold for now, please follow up to confirm if patient should be on Eliquis #FEN - Sodium/fat controlled diet - Monitor and replete lytes as needed #Prophylaxis - Heparin - SCDs #Disposition - Admitted to tele obs to r/o ACS Visit type - Emergency Visit Emergency Visit: Yes ED Registration Date: 11/22/19 Care time: The patient presented to the Emergency Department on the above date and was hospitalized for further evaluation of their emergent condition. - New Patient This patient is new to me today: Yes Date on this admission: 11/23/19 - Critical Care Critical Care patient: No ATTENDING PHYSICIAN STATEMENT I saw and evaluated the patient. I reviewed the resident's note and discussed the case with the resident. I agree with the resident's findings and plan as documented. SUBJECTIVE: OBJECTIVE: ASSESSMENT AND PLAN:
--- NOTE | 2019-11-23 01:31 | PN ---
Teaching Attending Note Name of Resident: Reena Mchugh ATTENDING PHYSICIAN STATEMENT I saw and evaluated the patient. I reviewed the resident's note and discussed the case with the resident. I agree with the resident's findings and plan as documented. SUBJECTIVE: 68-year-old morbidly obese woman with history of Asthma/COPD (on 2L NC home O2) , CAD, HFpEF, Morbid obesity, HTN, Dementia, TIA, Gout, CKD, ?Paroxysmal Afib On anticoagulation and Multiple recent admissions For chest pain or shortness of breath presented with chest pain that started about 1 hour prior to arrival and shortness of breath.Upon questioning patient she believes she is having heartburn. At this time she denied any shortness of breath or chest pain and does not have any complaints. OBJECTIVE: Last Vital Signs Temp Pulse Resp BP Pulse Ox 98.1 F 72 18 140/70 98 11/22/19 19:49 11/22/19 19:49 11/22/19 19:49 11/22/19 19:49 11/22/19 19:49 Physical exam was remarkable for a morbidly obese woman in no acute distress. Was mucous membranes, head atraumatic, no JVD. Lungs are clear to auscultation bilaterally, no wheezing appreciated, no rhonchi or rales. S1, S2 no murmurs. Abdomen is obese, soft, no tenderness to palpation. Lower extremities with trace pedal edema bilaterally. Abnormal Lab Results 11/22/19 11/22/19 21:29 21:29 RDW 18.9 H Chloride 111 H Anion Gap 4 L BUN 34.8 H Creatinine 1.8 H Alkaline Phosphatase 129 H B-Natriuretic Peptide 1192.7 H Albumin 3.3 L Chest x-ray reviewed, sharp costophrenic angles, no significant pleural effusions or pulmonary edema appreciated ASSESSMENT AND PLAN: 69-year-old woman with epigastric pain, rule out ACS Especially given history of CAD. Will treat empirically with PPI for possible heartburn. No clinical evidence of CHF or COPD exacerbations. Appears to have MARISOL on CKD. Hypoalbuminemia, morbid obesity. Telemetry observation Avoid renal toxins #MARISOL on CKDmay be multifactorial in etiology, includes hypertension, nephrotoxins Avoid nephrotoxins such as NSAIDs Blood pressure control I's and O's Daily weights #Heartburn/GERD Protonix 40 mg p.o. daily #Hypoalbuminemia #COPDon 2 L home oxygencontrolled Continue with home oxygen DuoNebs PRN if wheezing #Morbid obesity Diet and exercise Bariatric surgery referral upon discharge #Atrial fibrillation, paroxysmal Continue with apixaban Rate is controlled #CHFbelieved to be euvolemic at this time no clinical evidence of fluid overload Fluid and salt restriction I's and O's and daily weights Continue with beta-jimbo and furosemide #Hypertension Continue with carvedilol, furosemide, nifedipine #DVT prophylaxisalready on apixaban
[2019-11-23] MEDS ORDERED: ALBUTEROL SO4 2.5/IPRATROPIUM 0.5 INH SOL 3 ML VIAL.NEB. NEB PRN (01:35)
[2019-11-23] MEDS ORDERED: PANTOPRAZOLE SODIUM 40 MG VIAL IVPUSH ONE (01:40)
[2019-11-23] MEDS ORDERED: HEPARIN NA (PORCINE) 5,000 UNITS/ML 1ML VIAL SQ SCH (06:00)
[2019-11-23 06:56] LABS: HEMATOCRIT 31.6 % (32.4-45.2); HEMOGLOBIN 10.6 GM/dL (10.7-15.3); MCH 30.3 pg (25.7-33.7); MCHC 33.5 g/dl (32.0-36.0); MEAN CELL VOLUME 90.5 fl (80-96); MEAN PLT VOLUME 9.8 fl (7.5-11.1); PLATELET COUNT 211 K/MM3 (134-434); RBC 3.49 M/mm3 (3.60-5.2); WHITE BLOOD COUNT 6.9 K/mm3 (4.0-10.0)
[2019-11-23 07:27] LABS: ALBUMIN 3.1 g/dl (3.4-5.0); BILIRUBIN,TOTAL 0.3 mg/dL (0.2-1); BLOOD UREA NITROGEN 34.8 mg/dL (7-18); CALCIUM 9.2 mg/dL (8.5-10.1); CREATININE 1.7 mg/dL (0.55-1.3); POTASSIUM 4.2 mmol/L (3.5-5.1); TOT PROT 7.3 g/dl (6.4-8.2)
[2019-11-23] MEDS ORDERED: FERROUS SO4 325 MG TABLET (FP) PO SCH (08:00)
--- NOTE | 2019-11-23 09:08 | CON.CARD ---
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 At this time she denied any shortness of breath or chest pain and does not have any complaints. She denies cough, orthopnea, paroxysmal nocturnal dyspnea or orthopnea. She denies fever or chills. She denies nausea, vomiting, diarrhea or abdominal pain. She denies headache or lightheadedness. Her outpatient Lamp Assembler Dr Mir Ching confirmed that patient was briefly on Eliquis due to TTE showing thrombus but subsequent MENA at [facility] did not show thrombus so Eliquis was stopped, no documentation of PAF that I have seen. - History Source History Provided By: Patient Limitations to Obtaining History: No Limitations - Past Medical History CAP COVERER: Yes: CVA, Dementia Cardio/Vascular: Yes: CHF (Diastolic dysfunction), HTN, Hyperlipdemia Pulmonary: Yes: Asthma, COPD Gastrointestinal: Yes: Diverticulitis - Past Surgical History Past Surgical History: Yes: Hysterectomy - Alcohol/Substance Use Hx Alcohol Use: No History of Substance Use: reports: None - Smoking History Smoking history: Never smoked Have you smoked in the past 12 months: No Aproximately how many cigarettes per day: 20 If you are a former smoker, when did you quit?: 2018 Home Medications - Allergies Allergies/Adverse Reactions: Allergies Allergy/AdvReac Type Severity Reaction Status Date / Time No Known Allergies Allergy Verified 11/22/19 19:51 - Home Medications Home Medications: Ambulatory Orders Allopurinol [Zyloprim -] 100 mg PO DAILY 09/10/18 Donepezil HCl 10 mg PO HS 09/10/18 Calcium Carbonate [Calcium] 600 mg PO DAILY 07/17/19 Ergocalciferol (Vitamin D2) [Vitamin D2] 25 mcg PO DAILY 07/17/19 Ferrous Sulfate 325 mg PO BID #60 tablet 07/25/19 Nifedipine [Nifedipine ER] 90 mg PO DAILY 08/08/19 Aspirin [ASA -] 81 mg PO DAILY tab.chew 08/09/19 Valsartan [Diovan] 80 mg PO DAILY #30 tablet 08/16/19 Fluticasone Propion/Salmeterol [Wixela 250-50 Inhub] 1 each IH BID 08/28/19 Atorvastatin Ca [Lipitor] 80 mg PO HS 10/07/19 Apixaban [Eliquis] 5 mg PO DAILY 10/08/19 Furosemide [Lasix -] 40 mg PO DAILY #30 tablet 10/08/19 Albuterol 2.5/Ipratropium 0.5 [Duoneb -] 1 amp NEB Q4H PRN #1 box 11/02/19 Carvedilol [Coreg] 6.25 mg PO BID #60 tablet 11/02/19 Review of Systems - Review of Systems Cardiovascular: reports: Chest Pain, Shortness of Breath Vital Signs: Vital Signs Temperature 98.1 F 11/22/19 19:49 Pulse Rate 81 11/23/19 06:09 Respiratory Rate 18 11/23/19 06:09 Blood Pressure 143/60 11/23/19 06:09 O2 Sat by Pulse Oximetry (%) 100 11/23/19 06:09 Constitutional: Yes: No Distress, Calm Neck: Yes: Supple Respiratory: Yes: Regular, CTA Bilaterally Gastrointestinal: Yes: Normal Bowel Sounds, Soft, Abdomen, Obese Cardiovascular: Yes: Regular Rate and Rhythm JVD: No Carotid Bruit: No Heart Sounds: Yes: S1, S2 Murmur: Yes: Systolic Murmur, Grade 1 Edema: No - Other Data Labs, Other Data: CBC, BMP 11/23/19 05:30 11/23/19 05:30 Troponin, BNP 11/22/19 11/23/19 21:29 05:30 Troponin I 0.05 0.05 B-Natriuretic Peptide 1192.7 H Troponin, BNP 11/22/19 11/23/19 21:29 05:30 Troponin I 0.05 0.05 B-Natriuretic Peptide 1192.7 H SB @ 58 Ejection Fraction %: LVEF > or = 40 % Imaging - Results Chest X-ray: Report Reviewed (NAD) Problem List - Problems (1) Diastolic dysfunction Code(s): I51.89 - OTHER ILL-DEFINED HEART DISEASES (2) Chest pain Code(s): R07.9 - CHEST PAIN, UNSPECIFIED Qualifiers: Chest pain type: unspecified Qualified Code(s): R07.9 - Chest pain, unspecified (3) Coronary artery disease Code(s): I25.10 - ATHSCL HEART DISEASE OF [place] CORONARY ARTERY W/O ANG PCTRS Qualifiers: Coronary Disease-Associated Artery/Lesion type: [place] artery [place] vs. transplanted heart: [place] heart Associated angina: without angina Qualified Code(s): I25.10 - Atherosclerotic heart disease of [place] coronary artery without angina pectoris (4) HTN (hypertension) Code(s): I10 - ESSENTIAL (PRIMARY) HYPERTENSION Qualifiers: Hypertension type: essential hypertension Qualified Code(s): I10 - Essential (primary) hypertension (5) Morbid obesity Code(s): E66.01 - MORBID (SEVERE) OBESITY DUE TO EXCESS CALORIES (6) CKD (chronic kidney disease) Code(s): N18.9 - CHRONIC KIDNEY DISEASE, UNSPECIFIED Qualifiers: Chronic kidney disease stage: stage 2 (mild) Qualified Code(s): N18.2 - Chronic kidney disease, stage 2 (mild) (7) Hypercholesteremia Code(s): E78.00 - PURE HYPERCHOLESTEROLEMIA, UNSPECIFIED (8) Old inferolateral myocardial infarction Code(s): I25.2 - OLD MYOCARDIAL INFARCTION (9) TIA (transient ischemic attack) Code(s): G45.9 - TRANSIENT CEREBRAL ISCHEMIC ATTACK, UNSPECIFIED Assessment/Plan 08/09/2019 [facility] Myoview: No ischemia, LVEF 60% 07/17/2019 Echo: Normal LV fxn, mild cLVH, normal RV size and fxn, mod LAE 07/2019 Echo [facility]: Normal LV size and fxn inferolateral and basal inferior RWMA 2012 LH: PERSONAL SECURITY SPECIALIST RCA 1, Atypical chest pain ruling out SD vs GERD 1. Chronic LV diastolic failure (HFpEF) euvolemic 2. CAD s/p SD with PERSONAL SECURITY SPECIALIST of RCA 3. COPD on 2 L home oxygen 4. HTN 5. Hypercholesterolemia 6. Cerebrovascular disease 7. Diverticular disease 8. Organic brain/dementia 9. Acute on CKD 10. OSAS 11. 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 ? Paroxysmal atrial fibrillation placed on Eliquis PLAN: 1. Ruled out SD, agree with PPI trial 2. Oral diuresis with monitor diuretic response, renal fxn and electrolytes 3. Continue Carvedilol 6.25 mg BID, Valsartan 80 mg QD, Lipitor 80 qd, increase Eliquis 5 bid if PAF history is confirmed with primary picker machine operator and d/c ASA 81 qd as CAD is stable and Procardia XL 90 mg QD 4. Bronchodilator, O2 to keep SpO2 >90% and CPAP as needed 5. Sleep study and PFTs as outpatient 6. May d/c from CV-standpoint with outpatient f/u in office. Thank you for consultative opportunity
[2019-11-23] MEDS ORDERED: PATIENT'S OWN MEDICATION (NON-FORMULARY) (Fluticasone Propion/Salmeterol [Wixela 250-50 In IH SCH (10:00)
[2019-11-23] MEDS ORDERED: CALCIUM (OYSTER SHELL) 500 MG TABLET (FP) PO SCH (10:00)
[2019-11-23] MEDS ORDERED: FUROSEMIDE 40 MG TABLET (FP) PO SCH (10:00)
[2019-11-23] MEDS ORDERED: VALSARTAN 80 MG TABLET (UD) PO SCH (10:00)
[2019-11-23] MEDS ORDERED: NIFEdipine E.R. 90 MG TABLET PO SCH (10:00)
[2019-11-23] MEDS ORDERED: ASPIRIN 81 MG CHEWABLE TABLETS PO SCH (10:00)
[2019-11-23] MEDS ORDERED: ALLOPURINOL 100 MG TABLET (FP) PO SCH (10:00)
[2019-11-23] MEDS ORDERED: CARVEDILOL 6.25 MG TABLET (FP) PO SCH (10:00)
[2019-11-23] MEDS ORDERED: ERGOCALCIFEROL 25 MCG PO SCH (10:00)
[2019-11-23] MEDS ORDERED: PANTOPRAZOLE SODIUM 40 MG/100 ML BAG IVPB ONE (10:48)
--- NOTE | 2019-11-23 10:53 | EKG ---
Test Reason : Blood Pressure : / mmHG Vent. Rate : 058 BPM Atrial Rate : 058 BPM P-R Int : 194 ms QRS Dur : 108 ms QT Int : 438 ms P-R-T Axes : 062 057 070 degrees QTc Int : 429 ms SINUS BRADYCARDIA INFERIOR INFARCT (CITED ON OR BEFORE 09-SEP-2018) NONSPECIFIC T WAVE ABNORMALITY ABNORMAL ECG Confirmed by LASHAWN VILLATORO MD ([id number]) on 11/23/2019 10:53:06 AM Referred By: THA LAW Confirmed By:LASHAWN VILLATORO MD
--- NOTE | 2019-11-23 11:45 | EKG ---
Test Reason : Blood Pressure : / mmHG Vent. Rate : 065 BPM Atrial Rate : 065 BPM P-R Int : 208 ms QRS Dur : 112 ms QT Int : 412 ms P-R-T Axes : 050 055 054 degrees QTc Int : 428 ms POOR DATA QUALITY, INTERPRETATION MAY BE ADVERSELY AFFECTED NORMAL SINUS RHYTHM POSSIBLE INFERIOR INFARCT (CITED ON OR BEFORE 09-SEP-2018) ABNORMAL ECG WHEN COMPARED WITH ECG OF 11-NOV-2019 02:09, SD INTERVAL HAS DECREASED BORDERLINE CRITERIA FOR ANTERIOR INFARCT ARE NO LONGER PRESENT NONSPECIFIC T WAVE ABNORMALITY NOW EVIDENT IN LATERAL LEADS Confirmed by LASHAWN VILLATORO MD ([id number]) on 11/23/2019 11:44:44 AM Referred By: Confirmed By:LASHANW VILLATORO MD
[2019-11-23 12:40] VITALS: TEMP 97.9
--- NOTE | 2019-11-23 13:03 | DS ---
Physical Exam: SUBJECTIVE: Patient seen and examined OBJECTIVE: 69 y/o/f with PMHx of asthma, HFpEF, COPD (on home 2L), CAD with history of NH, HTN, dementia, HLD, gout presented to the ED due to chest pain that started this evening. Patient states that the chest pain had resolved by the time she arrived to the ED after she was given aspirin x1 by EMS. Patient denies current chest pain or SOB. She complains of heartburn currently. She states she had some sweating and nausea when she was having chest pain but denies current symptoms. She denies N/V/D, chills, fever, changes in vision, back pain, headache, dysuria. After her last discharge form the hospital she was instructed to have PFTs and a sleep study completed but she not recall having either test done but states that she has seen her PCP in the last 2-3 weeks. She states she has been taking her medications regularly and abides by her fluid restriction and low salt diet. Vital Signs Period Temp Pulse Resp BP Sys/Christensen Pulse Ox Last 24 Hr 97.8 F-98.1 F 56-81 18-20 140-179/53-70 97-100 PHYSICAL EXAM GENERAL: Awake, alert, and fully oriented, in no acute distress. HEAD: NC/AT EYES: EOMI, no scleral icterus EARS, NOSE, THROAT: MMM NECK: supple, trachea midline LUNGS: Breath sounds equal, clear to auscultation bilaterally. No wheezes, and no crackles. No accessory muscle use. HEART: RRR, cardiac murmur noted ABDOMEN: Soft, nontender, not distended, normoactive bowel sounds, no guarding, no rebound, no masses MUSCULOSKELETAL: No bony deformities or tenderness. EXTREMITIES: 2+ pulses, warm, well-perfused. No calf tenderness. trace edema of lower extremities NEUROLOGICAL: Normal speech. gait not observed. no facial droop. 5/5 strength upper and lower extremities. sensation intact throughout PSYCHIATRIC: Cooperative. Good eye contact. Appropriate mood and affect. SKIN: Warm, dry, normal turgor, no rashes or lesions noted LABS Laboratory Results - last 24 hr 11/22/19 11/22/19 11/22/19 21:29 21:29 21:29 WBC 7.2 RBC 3.80 Hgb 11.5 Hct 34.8 MCV 91.6 MCH 30.2 MCHC 33.0 RDW 18.9 H Plt Count 229 D MPV 9.9 Absolute Neuts (auto) 4.2 Neutrophils % 58.5 Lymphocytes % 30.2 Monocytes % 6.4 Eosinophils % 3.8 D Basophils % 1.1 Nucleated RBC % 0 Sodium 143 Potassium 4.4 Chloride 111 H Carbon Dioxide 29 Anion Gap 4 L BUN 34.8 H Creatinine 1.8 H Est GFR (CKD-EPI)AfAm 32.25 Est GFR (CKD-EPI)NonAf 27.83 Random Glucose 86 Calcium 9.5 Magnesium 2.2 Total Bilirubin 0.4 AST 18 ALT 31 Alkaline Phosphatase 129 H Creatine Kinase 96 Troponin I 0.05 B-Natriuretic Peptide 1192.7 H Total Protein 7.6 Albumin 3.3 L Influenza A (Rapid) Negative Influenza B (Rapid) Negative 11/23/19 11/23/19 05:30 05:30 WBC 6.9 RBC 3.49 L Hgb 10.6 L Hct 31.6 L MCV 90.5 MCH 30.3 MCHC 33.5 RDW 19.0 H Plt Count 211 MPV 9.8 Absolute Neuts (auto) Neutrophils % Lymphocytes % Monocytes % Eosinophils % Basophils % Nucleated RBC % Sodium 145 Potassium 4.2 Chloride 112 H Carbon Dioxide 28 Anion Gap 4 L BUN 34.8 H Creatinine 1.7 H Est GFR (CKD-EPI)AfAm 34.56 Est GFR (CKD-EPI)NonAf 29.82 Random Glucose 94 Calcium 9.2 Magnesium Total Bilirubin 0.3 AST 14 L ALT 31 Alkaline Phosphatase 124 H Creatine Kinase Troponin I 0.05 B-Natriuretic Peptide Total Protein 7.3 Albumin 3.1 L Influenza A (Rapid) Influenza B (Rapid) HOSPITAL COURSE: Date of Admission:11/22/19 Date of Discharge: 11/23/19 Minutes to complete discharge: 45 Discharge Summary Problems reviewed: Yes Reason For Visit: CHEST PAIN Current Active Problems Chest pain (Acute) Diastolic dysfunction (Acute) Condition: Stable - Instructions Diet, Activity, Other Instructions: Mrs Nagy: You were admitted for chest pain and have been ruled out for a NH (myocardial infarction). You were evaluated by a crop production advisor. Here are our discharge instructions: Continue taking these medications: Carvedilol 6.25 mg twice per day - this is for your blood pressure control Valsartan 80 mg daily - this is for your blood pressure control Lipitor 80mg - this is for cholesterol Continue Procardia 90mg daily - this is for your blood pressure control Lasix 40mg once per day, this is a medication to help you not retain water Protonix 40mg once per day, new medication to help you not build up stomach acid that can irritate your esophagus STOP taking aspirin 81mg Please check with your crop production advisor to see if you need to take Eliquis 5mg. It is important that you follow up and see him within 3-5 days after we discharge you. He has taken you off this medication before and we will not resume it at this time unless it is indicated by your crop production advisor. Thank you. Referrals: Manju Dickson MD [Primary Care Provider] - Disposition: HOME - Home Medications Comprehensive Discharge Medication List: Ambulatory Orders Allopurinol [Zyloprim -] 100 mg PO DAILY 09/10/18 Donepezil HCl 10 mg PO HS 09/10/18 Calcium Carbonate [Calcium] 600 mg PO DAILY 07/17/19 Ergocalciferol (Vitamin D2) [Vitamin D2] 25 mcg PO DAILY 07/17/19 Ferrous Sulfate 325 mg PO BID #60 tablet 07/25/19 Nifedipine [Nifedipine ER] 90 mg PO DAILY 08/08/19 Valsartan [Diovan] 80 mg PO DAILY #30 tablet 08/16/19 Fluticasone Propion/Salmeterol [Wixela 250-50 Inhub] 1 each IH BID 08/28/19 Atorvastatin Ca [Lipitor] 80 mg PO HS 10/07/19 Apixaban [Eliquis] 5 mg PO DAILY 10/08/19 Furosemide [Lasix -] 40 mg PO DAILY #30 tablet 10/08/19 Albuterol 2.5/Ipratropium 0.5 [Duoneb -] 1 amp NEB Q4H PRN #1 box 11/02/19 Carvedilol [Coreg] 6.25 mg PO BID #60 tablet 11/02/19 This patient is new to me today: Yes Date on this admission: 12/08/19 Emergency Visit: Yes ED Registration Date: 11/22/19 Care time: The patient presented to the Emergency Department on the above date and was hospitalized for further evaluation of their emergent condition. Critical Care patient: No - Discharge Referral Referred to [facility] No
[2019-11-23 15:04] VITALS: BP 137/65; PULSE 72
--- NOTE | 2019-11-23 16:48 | PDOC ---
Documentation entered by Vicky Larson SCRIBE, acting as scribe for Richard Morales DO. Richard Morales DO: This documentation has been prepared by the cal, Vicky Larson SCRIBE, under my direction and personally reviewed by me in its entirety. I confirm that the documentation accurately reflects all work, treatment, procedures, and medical decision making performed by me. Attending Attestation - Resident Resident Name: Nikita Pang - ED Attending Attestation I have performed the following: I have examined & evaluated the patient, The case was reviewed & discussed with the resident, I agree w/resident's findings & plan - HPI HPI: 11/22/19 21:39 Patient is a 69 year old obese female with a significant medical history of COPD on 2-3 liter of home O2, HTN, CAD who presents to the ED today with chest pain that began one hour before arrival. Pain is non-radiating and pressure like. Denies: SOB, fever, chills, cough, body aches. 11/22/19 21:39 - Physicial Exam PE: 11/22/19 21:39 GENERAL: Awake, alert, and fully oriented, in no acute distress HEAD: No signs of trauma EYES: PERRLA, EOMI, sclera anicteric, conjunctiva clear ENT: Auricles normal inspection, hearing grossly normal, nares patent, oropharynx clear without exudates. Moist mucosa NECK: Normal ROM, supple, no lymphadenopathy, JVD, or masses LUNGS: Breath sounds equal, clear to auscultation bilaterally. No wheezes, and no crackles HEART: Regular rate and rhythm, normal S1 and S2, no murmurs, rubs or gallops ABDOMEN: Soft, nontender, normoactive bowel sounds. No guarding, no rebound. No masses EXTREMITIES: Normal range of motion, no edema. No clubbing or cyanosis. No cords, erythema, or tenderness NEUROLOGICAL: Cranial nerves II through XII grossly intact. Normal speech, normal gait SKIN: Warm, Dry, normal turgor, no rashes or lesions noted. - Medical Decision Making 11/22/19 21:39 EKG Normal sinus 65, first degree AV block, incomplete right bundle, no acute ischemia, similar to prior. Assessment 69 year old female with chest pain will evaluate for ACS Chest x-ray to rule out pneumonia. Heart score 6-7 will plan for admission 11/22/19 21:47 11/30/19 02:08
[2019-11-23] MEDS ORDERED: ATORVASTATIN CA 80 MG TABLET (FP) PO SCH (22:00)
[2019-11-23] MEDS ORDERED: DONEPEZIL HCL 10 MG TABLET (FP) PO SCH (22:00)
== END 2019-11-23 15:30 | disposition home or self-care (01) ==
LOC: JER 19:48 → JERBED 23:50
PROVIDERS: ADMIT Internal Medicine; ATTEND Nurse Practitioner Family
PROC: 3E033GC Introduction of Other Therapeutic Substance into Peripheral Vein, Percutaneous Approach (ICD-10-PCS; principal; 2019-11-22)
PROC: 3E013GC Introduction of Other Therapeutic Substance into Subcutaneous Tissue, Percutaneous Approach (ICD-10-PCS; 2019-11-22)
DX: R07.89 Other chest pain (principal); I12.9 Hypertensive chronic kidney disease with stage 1 through stage 4 chronic kidney disease, or unspecified chronic kidney disease; N18.2 Chronic kidney disease, stage 2 (mild); I51.89 Other ill-defined heart diseases; I25.10 Atherosclerotic heart disease of native coronary artery without angina pectoris; I25.2 Old myocardial infarction; I45.19 Other right bundle-branch block; I44.0 Atrioventricular block, first degree; J44.9 Chronic obstructive pulmonary disease, unspecified; E78.5 Hyperlipidemia, unspecified; F03.90 Unspecified dementia, unspecified severity, without behavioral disturbance, psychotic disturbance, mood disturbance, and anxiety; B18.2 Chronic viral hepatitis C; M10.9 Gout, unspecified; G40.909 Epilepsy, unspecified, not intractable, without status epilepticus; R12 Heartburn; D50.9 Iron deficiency anemia, unspecified; G45.9 Transient cerebral ischemic attack, unspecified; E66.01 Morbid (severe) obesity due to excess calories; Z68.41 Body mass index [BMI] 40.0-44.9, adult; Z99.81 Dependence on supplemental oxygen
CPT/HCPCS: 36415; 71045-TC-FY; 80053; 82550; 83735; 83880; 84484; 85025; 85027; 87804; 93005; 93010; 96372; 96374; 99285-25; G0378; J1644

== ENCOUNTER 2020-06-18 17:20 | Inpatient (IN) | payer OTHER ==
[2020-06-18 17:55] VITALS: BMI 31.9
[2020-06-18] MEDS ORDERED: MAG HYDROX/AL HYDROX/SIMETH -MYLANTA- ORAL SUSPENSION PO ONE (18:32)
[2020-06-18] MEDS ORDERED: FAMOTIDINE 20 MG/50 ML IVPB 20 MG/50 ML MG IVPB ONE ×2 (18:32→20:30)
[2020-06-18] MEDS ORDERED: ASPIRIN 81 MG CHEWABLE TABLETS PO ONE (18:32)
--- NOTE | 2020-06-18 18:40 | PDOC ---
History of Present Illness - General Chief Complaint: Chest Pain Stated Complaint: CHEST PAIN Time Seen by Provider: 06/18/20 17:51 - History of Present Illness Initial Comments: Pt is a 69yo F with PMH COPD on 2L, HFpEF, HTN, HLD, CAD hx [place], dementia, diverticulosis, who presents with chest pain. Pt states that she is currently chest pain free. Pt states that pain began around 3:30pm today, lasting <30 minutes, described as tightness, mildly improved with albuterol inhaler, nonexertional, nonradiating, nonpleuritic, nonpositional. Reports associated nausea and 2 episodes of emesis. Reports abdominal pain described as squeezing that began this am, intermittent, not associated with meals. Denies f/c, SOB, palpitations. PCP: does not remember Cards: does not remember PMH: see above Meds: see chart - carvedilol, Furosemide, isosorbide, nifedipine, pantoprazole, ranolazine, valsartan, ASA 81, atorvastatin, donepezil, wixela Allergies: NKDA Social: denies LIBRADO Review of Systems CONSTITUTIONAL: denies fever, chills, diaphoresis, generalized weakness, malaise, loss of appetite HEENT: denies rhinorrhea, nasal congestion, sore throat, visual changes CARDIOVASCULAR: reports peripheral edema (chronic, unchanged), chest pain (not currently); denies syncope, palpitations, irregular heart rate, lightheadedness, RESPIRATORY: denies cough, shortness of breath, wheezing, hemoptysis GASTROINTESTINAL: reports abdominal pain, nausea, vomiting, denies diarrhea, constipation, melena, hematochezia GENITOURINARY: denies dysuria, frequency, urgency, hematuria, flank pain MUSCULOSKELETAL: denies myalgia, arthralgia HEMATOLOGIC/IMMUNOLOGIC: denies easy bleeding, easy bruising ENDOCRINE: denies unexplained weight gain, unexplained weight loss NEUROLOGIC: denies headache, loss of consciousness, focal weakness or paresthesias, bladder or bowel incontinence SKIN: denies rash, itching, pallor Physical Exam General: awake, alert, in no acute distress, well developed, well nourished Head: normocephalic, atraumatic Eyes: PERRL, EOMI, anicteric sclera, conjunctiva clear ENT: hearing grossly normal, oropharynx clear without exudates, no nasal congestion, moist mucous membranes Neck: supple, normal ROM Lung: equal breath sounds b/l, CTA b/l, no crackles, wheezes; no distress, speaks full sentences Heart: RRR, normal S1, S2, no murmurs appreciated, no chest wall tenderness Abdomen: soft, mildly TTP in epigastric region, normoactive bowel sounds, no guarding, rebound, masses Extremities: no erythema or tenderness, radial/PT pulses 2+ and symmetric Skin: warm, dry, normal skin turgor, capillary refill <2 seconds, no rashes or lesions noted MDM Pt is a 69yo F with PMH COPD on 2L, HFpEF, HTN, HLD, CAD hx [place], dementia, diverticulosis, who presents with chest pain. Vitals WNL DDx including but not limited to: ACS, musculoskeletal pain, gastritis Workup: labs (CBC, CMP, cardiac profile, BNP), cxr, ekg TX: pepcid, maalox Scores - HEART score - 4 (before trop) CXR - increased vascular markings compared to previous EKG - sinus bradycardia with 1st degree AV block, HR 59bpm, CA 228ms, QRS 116ms, QTc 471ms Disposition likely admission admission discussed with patient and daughter who agreed with plan 06/18/20 19:08 Patient signed out to night team Pending labs Past History - Medical History Allergies/Adverse Reactions: Allergies Allergy/AdvReac Type Severity Reaction Status Date / Time No Known Allergies Allergy Verified 02/16/20 22:02 Home Medications: Ambulatory Orders Allopurinol [Zyloprim -] 100 mg PO DAILY 09/10/18 Donepezil HCl 10 mg PO HS 09/10/18 Valsartan [Diovan] 80 mg PO DAILY #30 tablet 08/16/19 Atorvastatin Ca [Lipitor] 80 mg PO HS 10/07/19 Pantoprazole Sodium [Protonix] 40 mg PO DAILY #30 tablet.dr 11/23/19 Furosemide 60 mg PO DAILY 02/17/20 Aspirin [ASA -] 81 mg PO DAILY #30 tab.chew 02/18/20 Carvedilol [Coreg] 6.25 mg PO BID #60 tablet 02/18/20 Isosorbide Mononitrate [Imdur -] 30 mg PO DAILY #30 tab.sr.24h 02/18/20 Nifedipine ER [Procardia XL -] 60 mg PO DAILY #30 tab.er.24 02/18/20 Ranolazine [Ranexa -] 500 mg PO BID #60 tab 02/18/20 Calcium Carbonate/Vitamin D3 [Calcium 600-D3 20Mcg(800 Unit)] 600 mg PO DAILY 06/19/20 Cholecalciferol (Vitamin D3) [Vitamin D3] 25 mcg PO DAILY 06/19/20 Fluticasone Propion/Salmeterol [Wixela 500-50 Inhub] 1 amp IH DAILY 06/19/20 Anemia: No Asthma: Yes Cancer: No Cardiac Disorders: Yes (CHF) CVA: Yes COPD: Yes CHF: Yes Dementia: Yes Diabetes: Yes GI Disorders: No Disorders: No HTN: Yes Hypercholesterolemia: Yes Liver Disease: No Seizures: Yes (EPILEPTIC SEIZURES) Thyroid Disease: No - Surgical History Abdominal Surgery: No Appendectomy: No Cardiac Surgery: Yes (Catheterization, MENA) Cholecystectomy: No Lung Surgery: No Neurologic Surgery: No Orthopedic Surgery: Yes (Fracture left ankle) - Immunization History TDAP Vaccination: Yes Immunization Up to Date: Yes - Psycho-Social/Smoking History Smoking Status: No Smoking History: Never smoked Have you smoked in the past 12 months: No Number of Cigarettes Smoked Daily: 20 If you are a former smoker, when did you quit?: 2017 'Breaking Loose' booklet given: 09/10/18 - Substance Abuse Hx (Audit-C & DAST Scrn) How often the patient has a drink containing alcohol: Never Score: In Men: 4 or > Positive; In Women: 3 or > Positive: 0 Screen Result (Pos requires Nsg. Audit-10AR): Negative *Physical Exam - Vital Signs Last Vital Signs Temp Pulse Resp BP Pulse Ox 98.0 F 60 20 151/61 100 06/18/20 17:53 06/18/20 17:53 06/18/20 17:53 06/18/20 17:53 06/18/20 17:53 Heart Score/ECG Review - History History: Slightly suspicious - Electrocardiogram EKG: Normal - Age Age: >/= 65 - Risk Factors Risk Factors Heart Score: Yes Hx Hypercholesterolemia, Yes Hx Hypertension Based on the list above the patient has:: >/=3 risk factors or Hx atherosclerotic disease ED Treatment Course - LABORATORY CBC & Chemistry Diagram: 06/19/20 06:21 06/19/20 06:21 Discharge - Discharge Information Problems reviewed: Yes Clinical Impression/Diagnosis: Acute kidney injury superimposed on CKD Chest pain Qualifiers: Chest pain type: unspecified Condition: Improved Disposition: HOME - Follow up/Referral - Patient Discharge Instructions - Post Discharge Activity
[2020-06-18] MEDS ORDERED: MAG HYDROX/AL HYDROX/SIMETH 30 ML UNIT-DOSE CUP ONE (18:55)
--- NOTE | 2020-06-18 19:47 | PDOC ---
Documentation entered by Blanca Taylor SCRIBE, acting as scribe for Brooklyn Ignacio DO. Brooklyn Ignacio DO: This documentation has been prepared by the nadineibe, Blanca Taylor SCRIBE, under my direction and personally reviewed by me in its entirety. I confirm that the documentation accurately reflects all work, treatment, procedures, and medical decision making performed by me. Attending Attestation - Resident Resident Name: Araceli Nunn - ED Attending Attestation I have performed the following: I have examined & evaluated the patient, The case was reviewed & discussed with the resident, I agree w/resident's findings & plan, Exceptions are as noted - HPI HPI: 06/18/20 18:01 Patient is a 69 year old female with a significant past medical history of dementia, COPD, hypertension, hyperlipidemia, HFpEF, CAD, [place], and diverticulosis, who presents to the ED with chest pain since earlier this afternoon. Patient stated her symptoms only lasted for about 30 minutes but described her chest pain as a tightness that was nonradiating and improved with albuterol. Patient also reports nausea and 2 episodes of NBNB vomiting. Patient endorses: abdominal pain (squeezing sensation). 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 -will monitor and reassess 06/18/20 22:10 trop neg loraine on ckd microblog sent to [facility] for admission 06/18/20 22:33 case discussed with [facility] who accepts pt to service Heart Score/ECG Review - ECG Intrepretation Comment:: 06/18/20 19:45 sinus tello at 59, 1st degree av block, nl axis, nl interval, q waves in inferior leads which are age indeterminate, interventricular conduction delay, abnl ekg Discharge - Discharge Information Problems reviewed: Yes Clinical Impression/Diagnosis: Chest pain, Acute kidney injury superimposed on CKD Condition: Fair - Admission Yes - Follow up/Referral Referrals: Manju Dickson MD [Primary Care Provider] - - Patient Discharge Instructions - Post Discharge Activity
[2020-06-18 21:04] LABS: EOS % 3.2 % (0-4.5); HEMATOCRIT 31.7 % (32.4-45.2); HEMOGLOBIN 10.4 GM/dL (10.7-15.3); LYMPH % 30.7 % (8-40); MCHC 32.9 g/dl (32.0-36.0); MEAN CELL VOLUME 97.4 fl (80-96); MEAN PLT VOLUME 11.3 fl (7.5-11.1); MONO % 7.8 % (3.8-10.2); NEUT % 57.3 % (42.8-82.8); PLATELET COUNT 204 K/MM3 (134-434); RBC 3.26 M/mm3 (3.60-5.2); RDW 15.3 % (11.6-15.6); WHITE BLOOD COUNT 6.3 K/mm3 (4.0-10.0)
[2020-06-18 21:41] LABS: ALBUMIN 3.4 g/dl (3.4-5.0); BILIRUBIN,TOTAL 0.3 mg/dL (0.2-1); BLOOD UREA NITROGEN 43.1 mg/dL (7-18); CREATININE 2.5 mg/dL (0.55-1.3); N-TERMINAL BNP 943.7 pg/ml (5-125); POTASSIUM 4.7 mmol/L (3.5-5.1); TOT PROT 7.8 g/dl (6.4-8.2)
--- NOTE | 2020-06-18 22:04 | PDOC ---
*Physical Exam - Vital Signs Last Vital Signs Temp Pulse Resp BP Pulse Ox 98.0 F 60 20 151/61 100 06/18/20 17:53 06/18/20 17:53 06/18/20 17:53 06/18/20 17:53 06/18/20 17:53 ED Treatment Course - LABORATORY CBC & Chemistry Diagram: 06/18/20 20:42 06/18/20 20:42 - ADDITIONAL ORDERS Additional order review: Laboratory Results 06/18/20 20:42 Sodium 143 Potassium 4.7 Chloride 111 H Carbon Dioxide 26 Anion Gap 7 L BUN 43.1 H Creatinine 2.5 H Est GFR (CKD-EPI)AfAm 21.68 Est GFR (CKD-EPI)NonAf 18.71 Random Glucose 89 Calcium 9.0 Total Bilirubin 0.3 AST 16 ALT 14 Alkaline Phosphatase 111 Creatine Kinase 107 Troponin I 0.02 B-Natriuretic Peptide 943.7 H Total Protein 7.8 Albumin 3.4 06/18/20 20:42 RBC 3.26 L MCV 97.4 H MCHC 32.9 RDW 15.3 MPV 11.3 H D Neutrophils % 57.3 Lymphocytes % 30.7 D Monocytes % 7.8 Eosinophils % 3.2 Basophils % 1.0 - Medications Given in the ED: ED Medications Discontinued Medications Generic Name Dose Route Start Last Admin Trade Name Freq PRN Reason Stop Dose Admin Al Hydroxide/Mg Hydroxide 30 ml 06/18/20 18:32 06/18/20 18:53 Mylanta Suspension - PO 06/18/20 18:33 30 ml ONCE ONE Administration Aspirin 324 mg 06/18/20 18:32 06/18/20 18:53 Asa - PO 06/18/20 18:33 Not Given ONCE ONE Famotidine/Sodium Chloride 20 mg in 50 mls @ 100 mls/hr 06/18/20 18:32 06/18/20 20:38 Pepcid 20 Mg Premixed Ivpb - IVPB 06/18/20 19:01 100 mls/hr ONCE ONE Administration Medical Decision Making - Medical Decision Making 06/18/20 22:02 69 y/o F hx of COPD on 2L, HFpEF, HTN, HLD, CAD hx NC, dementia, diverticulosis presenting with chest pain concern for acs vs msk pain vs gastritis, pancreatitis, given pepcid and maalox ekg: sinus bradycardia with first degree AV block, pr 228, hr, 59, qrs 116, qtc 471 HEART score: 4 (age and risk factor prior troponin) first troponin negative, given heart score, admission for observation recommended. loraine on ckd 06/19/20 06:39 06/19/20 06:40 Discharge - Discharge Information Problems reviewed: Yes Clinical Impression/Diagnosis: Chest pain, Acute kidney injury superimposed on CKD Condition: Fair - Follow up/Referral - Patient Discharge Instructions - Post Discharge Activity
--- NOTE | 2020-06-18 22:38 | HP ---
Admitting History and Physical - Primary Care Physician PCP: Manju Dickson - Admission Chief Complaint: Chest Pain History of Present Illness: This is a 69 y/o female with a PMHx significant for CAD, Angina Pectoris, Diastolic Left Ventricular Dysfunction, HFpEF, ?pAfib (no AC), Hypertension, Hyperlipidemia, CVA (residual deficit), COPD (2L-3L at home), ?TREY, CKD, Dementia. Who presents to the ED for chest pain. Patient's daughter reports that the patient had chest pain with NBNB emesis for 30 mins in the afternoon. Patient describes the chest pain as "squeezing sensation"- now resolved. Patient's daughter denies patient having fever, chills, dizziness, [place], SOB, palpitations, AP, diarrhea, constipation, dysuria. 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 Cardiovascular: Yes: CHF (Diastolic dysfunction), HTN, Hyperlipdemia Pulmonary: Yes: Asthma, COPD Gastrointestinal: Yes: Diverticulitis - Past Surgical History Past Surgical History: Yes: Hysterectomy - Smoking History Smoking history: Former smoker Have you smoked in the past 12 months: No Aproximately how many cigarettes per day: 20 If you are a former smoker, when did you quit?: 2018 - Alcohol/Substance Use Hx Alcohol Use: No History of Substance Use: reports: None - Social History Usual Living Arrangement: Yes: With Child ADL: Family Assistance Home Medications - Allergies Allergies/Adverse Reactions: Allergies Allergy/AdvReac Type Severity Reaction Status Date / Time No Known Allergies Allergy Verified 02/16/20 22:02 - Home Medications Home Medications: Ambulatory Orders Allopurinol [Zyloprim -] 100 mg PO DAILY 09/10/18 Donepezil HCl 10 mg PO HS 09/10/18 Valsartan [Diovan] 80 mg PO DAILY #30 tablet 08/16/19 Atorvastatin Ca [Lipitor] 80 mg PO HS 10/07/19 Pantoprazole Sodium [Protonix] 40 mg PO DAILY #30 tablet. 11/23/19 Furosemide 60 mg PO DAILY 02/17/20 Hydralazine HCl 50 mg PO TID 02/17/20 Aspirin [ASA -] 81 mg PO DAILY #30 tab.chew 02/18/20 Carvedilol [Coreg] 6.25 mg PO BID #60 tablet 02/18/20 Isosorbide Mononitrate [Imdur -] 30 mg PO DAILY #30 tab.sr.24h 02/18/20 Nifedipine ER [Procardia XL -] 60 mg PO DAILY #30 tab.er.24 02/18/20 Ranolazine [Ranexa -] 500 mg PO BID #60 tab 02/18/20 Family Medical History Family History: As Documented Family Hx Coronary Artery Disease: Daughter (HTN) Other Family History: Family Hx of CAD Review of Systems - Review of Systems Constitutional: reports: No Symptoms Eyes: reports: No Symptoms HENT: reports: No Symptoms Neck: reports: No Symptoms Cardiovascular: reports: Chest Pain Respiratory: reports: No Symptoms Gastrointestinal: reports: Vomiting Genitourinary: reports: No Symptoms Breasts: reports: No Symptoms Reported Musculoskeletal: reports: No Symptoms Integumentary: reports: No Symptoms Neurological: reports: No Symptoms Endocrine: reports: No Symptoms Hematology/Lymphatic: reports: No Symptoms Psychiatric: reports: No Symptoms Pain Intensity: 6 Physical Examination Vital Signs: Vital Signs Temperature 98.0 F 06/18/20 17:53 Pulse Rate 60 06/18/20 17:53 Respiratory Rate 20 06/18/20 17:53 Blood Pressure 151/61 06/18/20 17:53 O2 Sat by Pulse Oximetry (%) 100 06/18/20 17:53 Constitutional: Yes: No Distress, Calm Eyes: Yes: Conjunctiva Clear, Occular Prosthesis, PERRL HENT: Yes: Normocephalic Neck: Yes: Supple, Trachea Midline Cardiovascular: Yes: Regular Rate and Rhythm, S1, S2 Respiratory: Yes: Regular, CTA Bilaterally, On Nasal O2 Gastrointestinal: Yes: Soft, Abdomen, Obese, Tenderness, Epigastrium ...Rectal Exam: Yes: Deferred Renal/: Yes: Incontinence Breast(s): Yes: WNL Edema: Yes Edema: LLE: 1+, RLE: 1+ Peripheral Pulses WNL: Yes Neurological: Yes: Alert, Pre-Existing Deficit Psychiatric: Yes: Alert Labs: CBC, BMP 06/18/20 20:42 06/18/20 20:42 Imaging - Results Chest X-ray: Image Reviewed EKG: Image Reviewed Problem List - Problems (1) Chest pain Assessment/Plan: HEART Score 5 Cardiac monitoring Serial Enzymes x1, neg will trend Appreciate Cardiology consult EKG- reviewed CXR- reviewed Monitor CBC, CMP, Mg Asa Code(s): R07.9 - CHEST PAIN, UNSPECIFIED Qualifiers: (2) Acute kidney injury superimposed on CKD Assessment/Plan: slightly above baseline, likely due to Dehydration Hold IVF 2/2 CHF hx Monitor CMP Avoid Nephrotoxic drugs Code(s): N17.9 - ACUTE KIDNEY FAILURE, UNSPECIFIED; N18.9 - CHRONIC KIDNEY DIS EASE, UNSPECIFIED (3) CHF (congestive heart failure) Assessment/Plan: hx diastolic left ventricular dysfunction BNP 943 Chest Xray image, report reviewed- Cardiomegaly, lungs are clear, addendum- some prominence of the anterior margins of the first ribs Strict INOs Daily weight Lasix Monitor CMP Code(s): I50.9 - HEART FAILURE, UNSPECIFIED Qualifiers: (4) Coronary artery disease Assessment/Plan: Will continue to treat with interventions accordingly Chest Xray- reviewed EKG reviewed Code(s): I25.10 - ATHSCL HEART DISEASE OF [place] CORONARY ARTERY W/O ANG PCTRS Qualifiers: (5) Dementia Assessment/Plan: continue home med when verified Fall precautions Code(s): F03.90 - UNSPECIFIED DEMENTIA WITHOUT BEHAVIORAL DISTURBANCE (6) HTN (hypertension) Assessment/Plan: stable Monitor BP Continue home meds when verified Monitor renal function Code(s): I10 - ESSENTIAL (PRIMARY) HYPERTENSION Qualifiers: (7) Hypercholesteremia Assessment/Plan: stable Continue home med when verified Monitor LFTs Code(s): E78.00 - PURE HYPERCHOLESTEROLEMIA, UNSPECIFIED (8) TIA (transient ischemic attack) Assessment/Plan: Continue home meds when verified Fall Precautions Aspiration Precautions Code(s): G45.9 - TRANSIENT CEREBRAL ISCHEMIC ATTACK, UNSPECIFIED (9) Encounter for screening laboratory testing for COVID-19 virus Assessment/Plan: Low Risk COVID PCR-pending Isolation Precautions Code(s): Z11.59 - ENCOUNTER FOR SCREENING FOR OTHER VIRAL DISEASES Assessment/Plan This is a 69 y/o female with a PMHx significant for CAD, Angina Pectoris, Diastolic Left Ventricular Dysfunction, HFpEF, ?pAfib (no AC), Hypertension, Hyperlipidemia, CVA (residual deficit), COPD (2L-3L at home), ?TREY, CKD, Dementia.. Admitted to Telemetry for Chest Pain, Acute on Chronic Kidney Disease for further evaluation of their emergent condition. Plan: See Problem List FEN Fluid Restriction 1L Replete lytes prn Low Na Diet DVT ppx OOB SCDs Heparin SQ Dispo: Requires Inpatient Care Visit type - Medication Review Med list reviewed for High Risk Meds patients 65 and older: No (Patient's daughter became a pt and could not verifiy the pt's meds) - Emergency Visit Emergency Visit: Yes ED Registration Date: 06/18/20 Care time: The patient presented to the Emergency Department on the above date and was hospitalized for further evaluation of their emergent condition. - New Patient This patient is new to me today: Yes Date on this admission: 06/18/20 - Critical Care Critical Care patient: No
--- OUTSIDE RECORDS SUMMARY | 2020-06-18 22:47 | XMS ---
:1950 [facility] Providers Name Role Phone Mir Tompkins MD Unavailable Unavailable Mir Tompkins MD Unavailable Unavailable Mir Tompkins MD Unavailable Unavailable Mir Tompkins MD Unavailable Unavailable Mir Tompkins MD Unavailable Unavailable Mir Tompkins MD Unavailable Unavailable Mir Tompkins MD Unavailable Unavailable Mir Tompkins MD Unavailable Unavailable SHOAIB SANTIAGO Unavailable Unavailable MADAN SOLORZANO Unavailable Unavailable Gerard Quiros Unavailable [phone] KIRILL BARCENAS Unavailable Unavailable Sarina Moran MD Unavailable Unavailable Carley Moran MD Unavailable Unavailable Carley Moran MD Unavailable Unavailable Carley Moran MD Unavailable Unavailable Carley Moran MD Unavailable Unavailable Carley Moran MD Unavailable Unavailable Carley Moran MD Unavailable Unavailable Carley Moran MD Unavailable Unavailable Carley Moran MD Unavailable Unavailable Carley Moran MD Unavailable Unavailable Carley Moran MD Unavailable Unavailable Carley Moran MD Unavailable Unavailable Craley Moran MD Unavailable Unavailable Carley Moran MD Unavailable Unavailable Carley Moran MD Unavailable Unavailable Darnell Unavailable Unavailable Darnell Unavailable Unavailable Darnell Unavailable Unavailable Darnell Unavailable Unavailable Darnell Unavailable Unavailable Darnell Unavailable Unavailable Darnell Unavailable Unavailable Darnell Unavailable Unavailable Darnell Unavailable Unavailable Darnell Unavailable Unavailable Darnell Unavailable Unavailable Darnell Unavailable Unavailable Darnell Unavailable Unavailable Darnell Unavailable Unavailable Darnell Unavailable Unavailable NANY Unavailable Unavailable Re-disclosure Warning The records that you are about to access may contain information from federally- assisted alcohol or drug abuse programs. If such information is present, then the following federally mandated warning applies: This information has been disclosed to you from records protected by federal confidentiality rules (42 CFR part 2). The federal rules prohibit you from making any further disclosure of this information unless further disclosure is expressly permitted by the written consent of the person to whom it pertains or as otherwise permitted by 42 CFR part 2. A general authorization for the release of medical or other information is NOT sufficient for this purpose. The Federal rules restrict any use of the information to criminally investigate or prosecute any alcohol or drug abuse patient.The records that you are about to access may contain highly sensitive health information, the redisclosure of which is protected by Article 27-F of the [facility] Public Health law. If you continue you may haveaccess to information: Regarding HIV / AIDS; Provided by facilities licensed or operated by the [facility] Office of Mental Health; or Provided by the [facility] Office for People With Developmental Disabilities. If such information is present, then the following [facility] mandated warning applies: This information has been disclosed to you from confidential records which are protected by state law. State law prohibits you from making any further disclosure of this information without the specific written consent of the person to whom it pertains, or as otherwise permitted by law. Any unauthorized further disclosure in violation of state law may result in a fine or nursing home sentence or both. A general authorization for the release of medical or other information is NOT sufficient authorization for further disclosure. Allergies and Adverse Reactions Type Description Substance Reaction Status Data Source(s ) Drug allergy No Known Drug No Known Drug [email or web address] Food allergy Shellfish Shellfish [facility] Food allergy No Known Food No Known Food [facility] Drug allergy No Known Drug No Known Drug [facility] Encounters Encounter Providers Location Date Indications Data Source(s ) Inpatient Attender: SWAPNA, 07/28/2019 CHEST PAIN [facility] Taylorender: 06:03[facility]00 [facility]: 08/[facility]/2019 SHOAIB SANTIAGO 06:58:00 PM EDT CHEST PAIN Patient admitted. Emergency Attender: JACK, 07/28/2019 04:03:[address] [facility] [facility]ACK[facility] AM EDT [facility] CHEST PAIN Attender: [facility] 05/18/2019 10:43:00 NEXTGEN ([facility] AM EDT - 05/18/2019 [facility] 10:43:00 AM EDT Center) Outpatient 05/16/2019 04:16:00 [facility] EDT Medical Center Outpatient Attender: Mir Aguilar 05/16/2019 08:46:00 [facility] Tompkins MDAdmitter: AM EDT Medic al Center Mir Tompkins MDReferrer: Mir Tompkins MD Attender: Gerard 05/16/2019 08:46:00 NEXTGEN ([facility] Taty Quiros EDT - 05/16/2019 [facility] 08:46:00 AM EDT Center) Outpatient [facility]/16[facility]2019 [facility]14[facility]2019 11:58:00 [facility] [place] Outpatient 05/14/2019 [facility]:00[facility] Attender: Teodoro H-HAL6 05/03/2019 01:59:00 [facility] Violetattender: PM EDT - 05/12/2019 [facility] AMBER 02:20:00 PM EDT MARYEGOAdmitter: AMBER Nicholsonferrer: AMBER AYON Patient discharged. Inpatient Attender: Teodoro Aguilar-HAL6 02/27/2019 01:46:00 [facility] Williender: HAGER EDT - 03/05/2019 Medical Center ASAEL FELIXdmitter: 05:30:00 PM EDT Teodoro Waltonerrer: Teodoro Patrick Patient discharged. Medications Medication Brand Start Product Dose Route Administrative Pharmacy [facility] Indications Reaction Description Data Name Date Form Instructions Instructions Source(s) Zofran Zofran 07/28/ 4 mg UNK active Zofran [facility] 4mg/2mL 4mg/2m 2019 4mg/2mL r Count y (Onda L 05:16: (Ondansetron Heal [facility] (Onda 36 AM ) Injection Care EDT 4 mg IVP Corporatio n Medication administered onsite Heparin Heparin 07/28/2019 1000 UNK active Hepar in Sodium [place] Sodium Sodium 04:15:02 AM un [id number] s/250mL [facility] [id number] EDT D5W (LOW DOSE [facility]al [facility] Care PROTOCOL) Drip Corpo ration Start at 12 units/kg/hr; Give 1000units/hr IV Medication administered onsite Heparin Heparin 07/28/2019 5000 un UNK active He helga [place] 5000 5000 04:13:12 AM 5000 [facility] H ealth units/m units/m EDT units/mL Care Injection Corporatio n 5000 units IVP Medication administered onsite Nitroglycerin Nitroglycerin 07/28/2019 999 UNK active Nitroglycerin [place] 50mg/2 50mg/2 04:13:[address] 50mg/250m L D5W County EDT Drip Start at Health Care 5 mcg/min; Corporati on Medication administered onsite Furosemide 40 MG Furosemide [40 07/28/2019 complet ed [place] Oral Tablet mg Tablet]: 1 12:00:00 AM [facility] Furosemide [40 Tablet Oral EDT Health Care mg Tablet]: 1 daily Corpo ration Tablet Oral daily apixaban 5 MG apixaban 1 completed Rosalio morganuis [facility] Oral Tablet (Eliquis) 5 mg Nhan [Eliquis] Tablet, Medical apixaban Ordered By: Cent er (Eliquis) 5 mg Zhenia Tablet, Ordered AlarconDirecti By: Efrain ons: 1 tablet AlarconDirection oral twice a s: 1 tablet oral day twice a day Hydralazine hydrALAZINE 50 1 completed [facility] Hydrochloride 50 mg Tablet, Nhan MG Oral Tablet Ordered By: Medical hydrALAZINE [address] mg Tablet, AlarconDirecti Ordered By: ons: 1 tablet Zhenia oral every AlarconDirection eight hours s: 1 tablet oral every eight hours 200 ACTUAT albuterol 2 completed [facility] Albuterol 0.09 sulfate 90 mcg Nhan MG/ACTUAT HFA Aerosol Med ical Metered Dose Inhaler, Gely ter Inhaler Ordered By: albuterol Zhenia sulfate 90 mcg AlarconDirecti HFA Aerosol ons: 2 puff by Inhaler, Ordered inhalation By: Efrain every six AlarconDirection hours PRN s: 2 puff by shortness of inhalation every breath six hours PRN shortness of breath Amlodipine 10 MG amLODIPine 10 1 completed [facility] Oral Tablet mg Tablet, Rachel yeager amLODIPine 10 mg Ordered By: Medical Tablet, Ordered Efrain Ce nter By: Efrain Carringtonirecti AlarconDirection ons: 1 tablet s: 1 tablet oral oral daily daily Ferrous Sulfate [id number] completed [place] [325 mg (65 mg Count y iron) Tablet]: 1 [facility] Tablet Oral Corporat ion EVERY OTHER DAY Donepezil Donepezil [10 completed [place] hydrochloride 10 mg Tablet]: 1 [facility] Oral Tablet Tablet Oral [facility] Donepezil [10 mg BEDTIME Corporation Tablet]: 1 Tablet Oral BEDTIME Potassium potassium 2 completed [facility] Chloride 10 MEQ chloride 10 [facility] Extended Release mEq Tablet Medical Oral Tablet Extended Cent er potassium Release, chloride 10 mEq Ordered By: Tablet Extended Junnia Release, Ordered AlarconDirecti By: Efrain ons: 2 tablet AlarconDirection oral twice a s: 2 tablet oral day twice a day carvedilol 25 MG Carvedilol [25 completed [place] Oral Tablet mg Tablet]: 1 [facility] Carvedilol [25 Tablet Oral 2 Health Care mg Tablet]: 1 TIMES A DAY Corporation Tablet Oral 2 TIMES A DAY Unable to Unable to 999 UNK completed Unabl e to [place] Obtain/Drug Obtain/Drug MG Obtain /Dr [facility] Names Unknown Names Unknown Names Health Care Unknown Corporation Discharge completed [facility] Medications are Coun ty unavailable. Health Care [facility] furosemide 40 mg completed [facility] Tablet [facility] colchicine 0.6 completed [facility] mg Tablet [facility] 14 ACTUAT fluticasone 1 completed Adv air [facility] Fluticasone propion-salmet Dis kus Nhan propionate 0.5 ray ([facility]air Medical MG/ACTUAT / Diskus) 500 C enter salmeterol 0.05 mcg-50 MG/ACTUAT Dry mcg/Dose Powder Inhaler blister with [Advair] device, fluticasone Ordered By: propion-salmeter Crispin santiago (Advair [place], Diskus) 500 MDDirections: mcg-50 mcg/Dose 1 puff by blister with inhalation device, Ordered every twelve By: Crispin Bond MDDirections: 1 puff by inhalation every twelve hours torsemide 20 MG torsemide 20 2 completed [facility] Oral Tablet mg Tablet, Rachel sephs torsemide 20 mg Ordered By: Medical Tablet, Ordered Zheterry Ce nter By: Efrain Solorioi AlarconDirection ons: 2 tablet s: 2 tablet oral oral twice a twice a day day 60 ACTUAT tiotropium 2 completed Spir helga [facility] tiotropium bromide Respimat Rachel sephs 0.0025 MG/ACTUAT (Spiriva Medical Metered Dose Respimat) 2.5 Center Inhaler mcg/actuation [Spiriva] Mist, Ordered tiotropium By: Crispin bromide (Spiriva [place], Respimat) 2.5 MDDirections: mcg/actuation 2 spray by Mist, Ordered inhalation By: Crispin Bond MDDirections: 2 spray by inhalation daily Fluticasone fluticasone 1 completed [facility] propionate 0.25 propion-salmet Nhan MG/ACTUAT / ray 250 Medi margret salmeterol 0.05 mcg-50 Ce nter MG/ACTUAT Dry mcg/Dose Powder Inhaler blister with fluticasone device, propion-salmeter Ordered By: ol 250 mcg-50 Zhenia mcg/Dose blister AlarconDirecti with device, ons: 1 puff by Ordered By: inhalation Zhenia twice a day AlarconDirection s: 1 puff by inhalation twice a day Hydralazine hydrALAZINE 25 1 completed [facility] Hydrochloride 25 mg Tablet, Nhan MG Oral Tablet Ordered By: Medical hydrALAZINE [address] mg Tablet, [place], Ordered By: MDDirections: Crispin Bond, 1 tablet oral MDDirections: 1 every eight tablet oral hours every eight hours pantoprazole 40 pantoprazole 1 completed [facility] MG Delayed 40 mg Nhan Release Oral tablet,delayed Medical Tablet release Center pantoprazole 40 (DR/EC), mg Ordered By: tablet,delayed Zhenia release (DR/EC), AlarconDirecti Ordered By: ons: 1 tablet Zhenia oral daily AlarconDirection before s: 1 tablet oral breakfast daily before breakfast Donepezil donepezil 10 1 completed [facility] hydrochloride 10 mg Tablet, Nhan MG Oral Tablet Ordered By: Medical donepezil 10 mg Efrain avileser Tablet, Ordered Ariana By: Efrain ons: 1 tablet AlarconDirection oral daily s: 1 tablet oral daily Aspirin 81 MG aspirin 81 mg 1 completed [facility] Chewable Tablet tablet,chewabl Nhan aspirin 81 mg e, Ordered By: Medical tablet,chewable, Efrain Schaeffer enter Ordered By: Ariana Zuniga ons: 1 tablet AlarconDirection oral daily s: 1 tablet oral daily atorvastatin 40 atorvastatin 1 completed [facility] MG Oral Tablet 40 mg Tablet, Nhan atorvastatin 40 Ordered By: Medical mg Tablet, Efrain Center Ordered By: Ariana Zuniga ons: 1 tablet AlarconDirection oral daily at s: 1 tablet oral bedtime daily at bedtime carvedilol 3.125 carvedilol 1 completed [facility] MG Oral Tablet 3.125 mg [facility] carvedilol 3.125 Tablet, Medical mg Tablet, Ordered By: Marilu emmanuel Ordered By: Efrain Lane AlarconDirection ons: 1 tablet s: 1 tablet oral oral twice a twice a day day allopurinol 100 1 completed [facility] mg Nhan TabletDirections Med ical : 1 tablet oral Cent er daily metoprolol 1 completed Dinesh t tartrate 25 mg Charly hs TabletDirections Med ical : 1 tablet oral Cent er daily Ergocalciferol [id number] completed [place] (Vitamin D2) [facility] [2,500 unit Health C are Capsule]: 1 Corporat ion Capsule Oral DAILY 24 HR Nifedipine Nifedipine [90 completed [place] 90 MG Extended mg]: 1 Tablet County Release Oral Oral DAILY [facility] Tablet Corporation Nifedipine [90 mg]: 1 Tablet Oral DAILY Donepezil donepezil 10 1 completed [facility] hydrochloride 10 mg Tablet, Nhan MG Oral Tablet Ordered By: Medical donepezil 10 mg Crispin emmanuel Tablet, Ordered Ronda, By: Crispin MDDirections: Ronda, 1 tablet oral MDDirections: 1 daily tablet oral daily Amlodipine 10 MG amLODIPine 10 1 completed [facility] Oral Tablet mg Tablet, Rachel yeager amLODIPine 10 mg Ordered By: Medical Tablet, Ordered Crispin emmanuel By: Ronda Duffy, MDDirections: MDDirections: 1 1 tablet oral tablet oral daily daily pantoprazole 40 pantoprazole 1 completed [facility] MG Delayed 40 mg Nhan Release Oral tablet,delayed Medical Tablet [facility] pantoprazole 40 (/EC), mg Ordered By: tablet,delayed Crispin release (DR/EC)Ronda, Ordered By: MDDirections: Crispin Bond, 1 tablet oral MDDirections: 1 daily before tablet oral breakfast daily before breakfast Furosemide 40 MG furosemide 40 1 completed [facility] Oral Tablet mg Tablet, Rachel sephs furosemide 40 mg Ordered By: Medical Tablet, Ordered Crispin emmanuel By: Ronda Duffy, MDDirections: MDDirections: 1 1 tablet oral tablet oral daily daily Aspirin 81 MG Children's completed [place] Chewable Tablet Aspirin C [facility]ty [facility] (Aspirin) [81 Health Care Aspirin mg Tablet Corpora tion (Aspirin) [81 mg Chew]: 1 Tablet Chew]: 1 Tablet Oral Tablet Oral Q10AM Q10AM Allopurinol 100 Allopurinol completed [place] MG Oral Tablet [100 mg Co unty Allopurinol [100 Tablet]: 1 Health Care mg Tablet]: 1 Tablet Oral Corporation Tablet Oral DAILY DAILY Prednisone 20 MG predniSONE 20 1 completed [facility] Oral Tablet mg Tablet, Rachel sephs predniSONE 20 mg Ordered By: Medical Tablet, Ordered Crispin emmanuel By: Ronda Duffy MDDirections: MDDirections: 1 1 tablet oral tablet oral daily daily atorvastatin 40 atorvastatin 1 completed [facility] MG Oral Tablet 40 mg Tablet, Nhan atorvastatin 40 Ordered By: Medical mg Tablet, Crispin Sepulveda Ordered By: Crispin Bond MDDirections: MDDirections: 1 1 tablet oral tablet oral daily at daily at bedtime bedtime Aspirin 81 MG aspirin 81 mg 1 completed [facility] Chewable Tablet tablet,chewabl Nhan aspirin 81 mg e, Ordered By: Medical tablet,Crispin parnell Ordered By: Crispin Bond MDDirections: MDDirections: 1 1 tablet oral tablet oral daily daily apixaban 5 MG apixaban 1 completed El iquis Saint Oral Tablet (Eliquis) 5 mg Nhan [Eliquis] Tablet, Medical apixaban Ordered By: Cent er (Eliquis) 5 mg Crispin Tablet, Ordered Ronda, By: Crispin MDDirections: Ronda, 1 tablet oral MDDirections: 1 twice a day tablet oral twice a day Calcium Calcium completed [place] Carbonate 1500 Carbonate [600 County MG Oral Tablet mg calcium Health Care Calcium (1,500 mg) Corpor ation Carbonate [600 Tablet]: 1 mg calcium Tablet Oral (1,500 mg) DAILY Tablet]: 1 Tablet Oral DAILY 14 ACTUAT Fluticasone-Sa completed [place] Fluticasone lmeterol [500 County propionate 0.5 mcg-50 Hea lth Care MG/ACTUAT / mcg/dose]: 1 Corporation salmeterol 0.05 PUFF MG/ACTUAT Dry Inhalation 2 Powder Inhaler TIMES A DAY Fluticasone-Salm eterol [500 mcg-50 mcg/dose]: 1 PUFF Inhalation 2 TIMES A DAY Allopurinol 100 allopurinol 1 completed [facility] MG Oral Tablet 100 mg TabletNhan allopurinol 100 Ordered By: Medical mg TabletEfrain [place] Ordered By: Ariana Zuniga ons: 1 tablet AlarconDirection oral daily s: 1 tablet oral daily Insurance Providers Payer name Policy type Policy ID Covered Covered alliance party's Policy P bib / Coverage alliance party ID relationship to [employer] ormation type bridges AETNA [id number] SP [id number] MEDICARE JENNIE MEDICARE [id number] SP [id number] 1 JENNIE MEDICARE [id number] SP [id number] UNK UNK UNK UNK [id number] MEDICARE [id number] SP [id number] A O [id number] AETNA [id number] self [id number] MEDICARE AETNA O [id number] 01 [id number] 1 AETNA O [id number] 01 [id number] AETNA O [id number] 01 [id number] AETNA O [id number] 01 [id number] MEDICARE Problems, Conditions, and Diagnoses Code Display Name Description Problem Type Effective Data Sour ce(s) Dates Z91.013 Allergy to seafood ALLERGY TO Diagnosis 08/01/2019 [facility] brigido SEAFOOD 06:58:00 PM [facility] EDT [facility] Z87.891 Personal history of PERSONAL HISTORY Diagnosis 08/01/2019 [place] nicotine dependence OF NICOTINE 06:58:00 PM [facility] DEPENDENCE EDT Care Corporation N18.9 Chronic kidney CHRONIC KIDNEY Diagnosis 08/01/2019 Jerry brigido disease, DISEASE, 06:58:00 PM [facility] unspecified UNSPECIFIED EDT Care Corporation G47.33 Obstructive sleep OBSTRUCTIVE SLEEP Diagnosis 08/01/2019 [place] apnea (adult) APNEA (ADULT) 06:58:00 PM [facility] (pediatric) (PEDIATRIC) EDT [facility] Corporation I13.0 Hypertensive heart HYP HRT and CHR Diagnosis 08/01/2019 [place] and chronic kidney KDNY DIS W HRT 06:58:00 PM [employer] disease with heart FAIL AND STG EDT Care failure and stage 1 1-4/UNSP CHR [facility] [employer] [facility] through stage 4 chronic kidney disease, or unspecified chronic kidney disease D50.9 Iron deficiency IRON DEFICIENCY Diagnosis 08/01/2019 [place] effie anemia, unspecified ANEMIA, 06:58:00 PM [facility] UNSPECIFIED EDT Care Corporation 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 08/01/2019 [facility] infarction INFARCTION 06:58:00 PM [facility] EDT [facility] Corporation F03.90 Unspecified UNSPECIFIED Diagnosis 08/01/2019 [place] dementia without DEMENTIA WITHOUT 06:58:00 PM [employer] behavioral BEHAVIORAL EDT Care disturbance DISTURBANCE Corporation I25.10 Atherosclerotic ATHSCL HEART Diagnosis 08/01/2019 [facility] heart disease of DISEASE OF CRAIG 06:58:00 PM [facility] [place] coronary CORONARY ARTERY EDT Care artery without W/O ANG PCTRS Corpora tion angina pectoris N17.9 Acute kidney ACUTE KIDNEY Diagnosis 08/01/2019 [facility] r failure, FAILURE, 06:58:00 PM [facility] unspecified UNSPECIFIED EDT [facility] I50.33 Acute on chronic ACUTE ON CHRONIC Diagnosis 08/01/2019 [facility] diastolic DIASTOLIC 06:58:00 PM [facility] (congestive) heart (CONGESTIVE) EDT Care failure HEART FAILURE Corporation I16.0 Hypertensive HYPERTENSIVE Diagnosis 07/28/2019 [facility] r urgency URGENCY 06:03:00 AM [facility] EDT [facility] Corporation F03.90 Unspecified UNSPECIFIED Diagnosis 05/12/2019 [facility] dementia without DEMENTIA WITHOUT 02:20:00 PM [facility] behavioral BEHAVIORAL EDT disturbance DISTURBANCE M10.9 Gout, unspecified GOUT, UNSPECIFIED Diagnosis 05/12/2019 [facility] 02:20:00 PM Medical Cente r EDT J44.9 Chronic obstructive CHRONIC Diagnosis 05/12/2019 [facility] pulmonary disease, OBSTRUCTIVE 02:20:00 PM [facility] unspecified PULMONARY EDT DISEASE, UNSPECIFIED K57.30 Diverticulosis of DVRTCLOS OF LG Diagnosis 05/12/2019 Fernando aviles Nhan large intestine INT W/O 02:20:00 PM Medical Center without perforation PERFORATION OR EDT or abscess without ABSCESS W/O bleeding BLEEDING F17.210 Nicotine NICOTINE Diagnosis 05/12/2019 [facility] dependence, DEPENDENCE, 02:20:[address] cigarettes, CIGARETTES, EDT uncomplicated UNCOMPLICATED E11.22 Type 2 diabetes TYPE 2 DIABETES Diagnosis 05/12/2019 Dinesh alfonzo Aguirres mellitus with MELLITUS W 02:20:00 PM Medical Ce nter diabetic chronic DIABETIC CHRONIC EDT kidney disease KIDNEY DISEASE N18.9 Chronic kidney CHRONIC KIDNEY Diagnosis 05/12/2019 [facility] disease, DISEASE, 02:20:00 PM Medical Ricky r unspecified UNSPECIFIED EDT K55.9 Vascular disorder VASCULAR DISORDER Diagnosis 05/12/2019 [facility] of intestine, OF INTESTINE, 02:20:00 PM Medical Center unspecified UNSPECIFIED EDT I13.0 Hypertensive heart HYP HRT and CHR Diagnosis 05/12/2019 S aint Nhan and chronic kidney KDNY DIS W HRT 02:20:00 PM [facility] disease with heart FAIL AND STG EDT failure and stage 1 1-4/UNSP CHR KDNY through stage 4 chronic kidney disease, or unspecified chronic kidney disease I50.33 Acute on chronic ACUTE ON CHRONIC Diagnosis 05/03/2019 [place] Justin diastolic DIASTOLIC 01:59:00 PM Medical Ricky garcia (congestive) heart (CONGESTIVE) EDT failure HEART FAILURE E66.01 Morbid (severe) MORBID (SEVERE) Diagnosis 03/05/2019 Dinesh Justin obesity due to OBESITY DUE TO 05:30:00 PM Medic al Center excess calories EXCESS CALORIES EDT I50.31 Acute diastolic ACUTE DIASTOLIC Diagnosis 03/05/2019 Dinesh Justin (congestive) heart (CONGESTIVE) 05:30:00 PM Med ical Center failure HEART FAILURE EDT I11.0 Hypertensive heart HYPERTENSIVE Diagnosis 03/05/2019 Dinesh Justin disease with heart HEART DISEASE 05:30:00 PM Ny dical Center failure WITH HEART EDT FAILURE Z79.899 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 ASPIRIN EDT Z68.41 Body mass index BODY MASS INDEX Diagnosis 03/05/2019 Dinesh mejía Nhan (BMI) 40.0-44.9, (BMI) 40.0-44.9, 05:30:00 PM [facility] adult ADULT EDT I69.354 Hemiplegia and HEMIPLGA Diagnosis 03/05/2019 [facility] phs hemiparesis FOLLOWING 05:30:00 PM Medical Cent er following cerebral CEREBRAL INFRC EDT infarction AFFECTING LEFT affecting left NONDOM SIDE non-dominant side J44.1 Chronic obstructive CHRONIC Diagnosis 02/27/2019 [facility] pulmonary disease OBSTRUCTIVE 01:46:00 AM [facility] with (acute) PULMONARY DISEASE EDT exacerbation W (ACUTE) EXACERBATION Surgeries/Procedures Procedure Description Date Indications Data Source(s) Following Clinical Following Clinical 07/28/2019 [facility] Pathway Protocol Pathway Protocol 12:00:00 AM [facility] EDT [employer] Results ID Date Data Source [id number] 08/01/2019 06:09:00 AM EDT [facility] [id number] Corporation Name Value Range Interpretation Description Data Sup porting Code Source(s) Document(s ) Leukocytes 9.1 k/mm3 4.8-10 <td> 08/01/2019 Radha [#/volume] in .8 06:09</td><td> [facility] Blood by k/mm3 WBC </td><td> [employer] Automated count Magix 9.1
(4.8-10.8) k/mm3 </td> Erythrocytes 3.62 m/mm3 3.90-5 <td> 08/01/2019 Ramiro garcia [#/volume] in .20 06:09</td><td> [facility] Blood m/mm3 RBC Health Care </td><td><[employer] raph styleCode="Bold "> 3.62 L </paragraph>
(3.90-5.20) m/mm3 </td> Hemoglobin 8.7 g/dL 12.0-1 <td> 08/01/2019 [place] [Mass/volume] 6.0 06:09</td><td> County in Blood g/dL HGB Health Care </td><td><[employer] raph styleCode="Bold "> 8.7 L </paragraph>
(12.0-16.0) g/dL </td> Erythrocyte 29.6 % 32.0-3 <td> 08/01/2019 [place] mean 6.0 % 06:09</td><td> [facility] corpuscular [facility] hemoglobin </td><td><[employer] concentration raph [Mass/volume] styleCode="Bold in Blood from "> Fetus by 29.6 Automated count L </paragraph>
(32.0-36.0) % </td> Hematocrit 29.4 % 37.0-4 <td> 08/01/2019 [place] [Volume 7.0 % 06:09</td><td> County Fraction] of HCT Health Care Blood by </td><td><[employer] Automated count raph styleCode="Bold "> 29.4 L </paragraph>
(37.0-47.0) % </td> Erythrocyte 81.2 fL 81.0-9 <td> 08/01/2019 [place] mean 9.0 fL 06:09</td><td> [facility] corpuscular MCV </td><td> Health Care volume [[employer] volume] by 81.2 Automated count
(81.0-99.0) fL </td> Erythrocyte 24.0 pg 27.0-3 <td> 08/01/2019 [place] mean 1.5 pg 06:09</td><td> [facility] corpuscular MCH Health Care hemoglobin </td><td><[employer] [Entitic mass] raph by Automated styleCode="Bold count "> 24.0 L </paragraph>
(27.0-31.5) pg </td> Platelet mean 11.2 fL 9.8-12 <td> 08/01/2019 [facility] r volume [Entitic .8 fL 06:09</td><td> County volume] in MPV </td><td> Health Care Blood by Magix Automated count 11.2
(9.8-12.8) fL </td> Platelets 356 k/mm3 160-41 <td> 08/01/2019 [place] [#/volume] in 0 06:09</td><td> County Blood by k/mm3 Platelet Count Health Care Automated count </td><td> Corporation 356
(160-410) k/mm3 </td> Erythrocyte 19.7 % 11.5-1 <td> 08/01/2019 [place] distribution 4.5 % 06:09</td><td> County width [Entitic RDW Health Care volume] by </td><td><luis Corporation Automated count raph styleCode="Bold "> 19.7 H </paragraph>
(11.5-14.5) % </td> Monocytes/Leuko 6.5 % 0.0-11 <td> 07/28/2019 [facility] cytes [Pure .0 % 04:29</td><td> County number Monocytes. Health Care fraction] in </td><td> Corporation Blood by Automated count 6.5
(0.0-11.0) % </td> Lymphocytes 23.0 % 17.0-5 <td> 07/28/2019 [place] [#/volume] in 0.0 % 04:29</td><td> County Blood by Lymphocytes Health Care Automated count </td><td> Corporation 23.0
(17.0-50.0) % </td> Basophils+Eosin 2.4 % 0.0-5. <td> 07/28/2019 [facility] ophils+Monocyte 0 % 04:29</td><td> County s [#/volume] in Eosinophils Health Care Blood by </td><td> Corporation Automated count 2.4
(0.0-5.0) % </td> Basophils 0.5 % 0.0-2. <td> 07/28/2019 [place] [#/volume] in 0 % 04:29</td><td> [facility] Blood by Basophils [facility] Automated count </td><td> Corporation 0.5
(0.0-2.0) % </td> Neutrophils [#] 67.3 % 40.0-7 <td> 07/28/2019 [facility] in Body fluid 6.0 % 04:29</td><td> [facility] by Manual count Neutrophils Health Care </td><td> Corporation 67.3
(40.0-76.0) % </td> Immature 0.3 % 0.0-0. <td> 07/28/2019 [place] granulocytes/10 5 % 04:29</td><td> [facility] 0 leukocytes in IG% </td><td> [facility] Blood by Magix Automated count 0.3
(0.0-0.5) %
The IG fraction represents metamyelocytes, myelocytes and/or
promyelocytes and is only reported as part of the automated
differential when found at a percentage of less than 6.
If higher than 6%, a manual differential will be performed.

(0.0-0.5) % </td> Anisocytosis Slight <td> 07/28/2019 [place] [Presence] in 04:29</td><td> [facility] Blood by Light Anisocytosis Health Care microscopy </td><td> Magix Slight
</td> Polychromasia Slight <td> 07/28/2019 [facility] r [Presence] in 04:29</td><td> [facility] Blood by Light Polychromasia Health Care microscopy </td><td> [employer]ix Slight
</td> Hypochromia Slight <td> 07/28/2019 [place] [Presence] in 04:29</td><td> [facility] Blood by Light Hypochromia Health Care microscopy </td><td> Magix Slight
</td> Glucose 110 mg/dL 70-105 <td> 08/01/2019 [place] [Mass/volume] mg/dL 06:09</td><td> County in Blood Glucose-Serum Health Care </td><td><luis Magix raph styleCode="Bold "> 110 H </paragraph>
(70-105) mg/dL </td> Sodium 139 mEq/L 135-14 <td> 08/01/2019 [place] [Moles/volume] 5 06:09</td><td> County in Serum or mEq/L Sodium-Serum Health Care Plasma </td><td> Magix 139
(135-145) mEq/L </td> Ovalocytes Few <td> 07/28/2019 [place] [Presence] in 04:29</td><td> County Blood by Light Ovalocytes Health Care microscopy </td><td> Magix Few
</td> Chloride 105 mEq/L 98-107 <td> 08/01/2019 [place] [Moles/volume] mEq/L 06:09</td><td> County in Serum or Chloride Health Care Plasma </td><td> Magix 105
(98-107) mEq/L </td> Potassium 3.9 mEq/L 3.5-5. <td> 08/01/2019 [place] [Moles/volume] 1 06:09</td><td> County in Serum or mEq/L Potassium-Serum Health Care Plasma </td><td> Magix 3.9
(3.5-5.1) mEq/L </td> Carbon dioxide, 26 mEq/L 22-30 <td> 08/01/2019 [facility] total mEq/L 06:09</td><td> [facility] [Moles/volume] CO2 </td><td> Health Car e in Serum or Corporation Plasma 26
(22-30) mEq/L </td> Creatinine 1.40 mg/dL 0.57-1 <td> 08/01/2019 [place] [Moles/volume] .11 06:09</td><td> County in Serum or mg/dL Creatinine. Health Care Plasma </td><td><[employer] raph styleCode="Bold "> 1.40 H </paragraph>
(0.57-1.11) mg/dL </td> Urea nitrogen 24 mg/dL 6-22 <td> 08/01/2019 [facility] r [Mass/volume] mg/dL 06:09</td><td> County in Blood BUN Health Care </td><td><luis Corporation raph styleCode="Bold "> 24 H </paragraph>
(6-22) mg/dL </td> Aspartate 41 U/L 4-35 <td> 07/28/2019 [place] aminotransferas U/L 04:29</td><td> County e [Enzymatic AST (SGOT) Health Care activity/volume </td><td><luis Corporat ion ] in Serum or raph Plasma styleCode="Bold "> 41 H </paragraph>
(4-35) U/L </td> Proteins - 7.6 g/dL 6.4-8. <td> 07/28/2019 [place] Total 3 g/dL 04:29</td><td> [facility] Proteins - Health [employer] </td><td> 7.6
(6.4-8.3) g/dL </td> Bilirubin.total 0.5 mg/dL 0.2-1. <td> 07/28/2019 [facility] [Mass/volume] 3 04:29</td><td> County in Blood mg/dL Bilirubin - Health [employer] </td><td> 0.5
(0.2-1.3) mg/dL </td> Alanine 17 U/L 6-55 <td> 07/28/2019 [place] aminotransferas U/L 04:29</td><td> County e [Enzymatic ALT (SGPT) Health Care activity/volume </td><td> Magix ] in Serum or Plasma 17
(6-55) U/L </td> Calcium 9.7 mg/dL 8.6-10 <td> 08/01/2019 [place] [Mass/volume] .2 06:09</td><td> County in Blood mg/dL Calcium Health Care </td><td> Magix 9.7
(8.6-10.2) mg/dL </td> Albumin 3.6 g/dL 3.4-4. <td> 07/28/2019 [place] [Mass/volume] 8 g/dL 04:29</td><td> County in Serum or Albumin Health Care Plasma </td><td> Magix 3.6
(3.4-4.8) g/dL </td> Globulin 4.0 gm/dL 2.9-4. <td> 07/28/2019 [place] [Mass/volume] 0 04:29</td><td> [facility] in Serum gm/dL Globulin Health Care </td><td> Magix 4.0
(2.9-4.0) gm/dL </td> Anion gap in 8 mEq/L 7-13 <td> 08/01/2019 [place] Serum or Plasma mEq/L 06:09</td><td> [facility] Anion Gap Health Care </td><td> Magix 8
(7-13) mEq/L </td> Hemolysis index No <td> 08/01/2019 [facility] of Serum or Hemolysis 06:09</td><td> [facility] Plasma Hemolysis Index Health [facility] </td><td> Magix No Hemolysis
</td> Lipemic index No Lipemia <td> 08/01/2019 [facility] er of Serum or 06:09</td><td> [facility] Plasma Lipemia Index Health Care </td><td> Magix No Lipemia
</td> Prothrombin 11.0 secs 9.8-12 <td> 07/31/2019 [place] time (PT) .0 05:45</td><td> [facility] secs Prothrombin Health Care Time. [employer]ix </td><td> 11.0
(9.8-12.0) secs </td> Icteric index Non <td> 08/01/2019 [facility] r of Serum or Icteric 06:09</td><td> [facility] Plasma Icteric Index Health Care </td><td> [employer] Non Icteric
</td> Phosphate 4.0 mg/dL 2.3-4. <td> 07/31/2019 [place] [Mass/volume] 7 05:45</td><td> County in Serum or mg/dL Inorganic Health Care Plasma [employer] </td><td> 4.0
(2.3-4.7) mg/dL </td> aPTT panel - 26.5 secs 25.0-3 <td> 07/31/2019 [place] Platelet poor 2.0 05:45</td><td> [facility] plasma secs Partial [facility] Care Thromboplastin [facility] Time </td><td> 26.5
(25.0-32.0) secs </td> Amylase 120 U/L 22-100 <td> 07/28/2019 [place] [Enzymatic U/L 10:21</td><td> [facility] activity/volume Amylase Level Health Car e ] in Serum or </td><td><luis Corporatio n Plasma raph styleCode="Bold "> 120 H </paragraph>
(22-100) U/L </td> Magnesium 2.1 mg/dL 1.6-2. <td> 08/01/2019 [place] [Mass/volume] 6 06:09</td><td> County in Serum or mg/dL Magnesium Level Health Care Plasma </td><td> [employer]ix 2.1
(1.6-2.6) mg/dL </td> Cholesterol in 39 mg/dL >60 <td> 07/28/2019 [facility] er HDL mg/dL 04:29</td><td> [facility] [Mass/volume] HDL Cholesterol Health Car e in Serum or </td><td> [employer] Plasma 39
(>60) mg/dL </td> Hemoglobin A1C 5.6 % 4.0-5. <td> 07/28/2019 [facility] 6 % 06:52</td><td> [facility] Hemoglobin A1C Health Care </td><td> [employer] 5.6
(4.0-5.6) %
Increased risk for diabetes mellitus is seen in patients with HgA1C values
between 5.7-6.4%. Values > or = 6.5% are considered diagnostic of diabetes
mellitus.
Hemolytic anemias, hemoglobinopath ies, or recent transfusion may impact
HbA1c results. Clinical correlation is recommended.
===
ESTIMATED AVERAGE GLUCOSE (eAG)
---
RELATIONSHIP BETWEEN A1C AND eAG
===
A1C(%) eAG(mg/dL)
6 1 26
7 1 54
8 1 83
9 2 12
10 240
11 269
12 298
Source: Adapted from [place] [employer]. Standards of medical
care in diabetes-2014. Diabetes Care.2014;37([place] pp 1):S14-S80, table 8.

(4.0-5.6) % </td> Cholesterol 142 mg/dL 125-24 <td> 07/28/2019 [place] [Moles/volume] 0 04:29</td><td> County in Serum or mg/dL Cholesterol Health Care Plasma </td><td> [facility] 142
(125-240) mg/dL </td> Glucose 103 mg/dL 70-105 <td> 07/29/2019 [place] [Mass/volume] mg/dL 17:08</td><td> County in Capillary Glucose - [facility] Care blood by Finger Stick [employer] Glucometer </td><td> 103
(70-105) mg/dL </td> Cholesterol in 91 mg/dL <150 <td> 07/28/2019 [facility] er LDL mg/dL 04:29</td><td> [facility] [Mass/volume] LDL Cholesterol [facility] e in Serum or </td><td> [facility] Plasma 91
(<150) mg/dL </td> Triglyceride 58 mg/dL 30-200 <td> 07/28/2019 [place] [Mass/volume] mg/dL 04:29</td><td> [facility] in Serum or Triglyceride Health Care Plasma </td><td> Mag[employer] 58
(30-200) mg/dL </td> ID Date Data Source [id number] 07/29/2019 02:12:00 PM EDT [facility] [id number] Corporation Name Value Range Interpretation Description Data Sup porting Code Source(s) Document(s ) Echo 2D [id number] <td> 07/29/2019 [place] M-Mode [id number] 14:12</td><td> [facility] [id number] Echo 2D M-Mode Health Care (TTE) [facility] Complete (TTE) [facility] Non-Invasive </td><td> Cardiology [id number] Laboratory
Advanced [id number] Physician
Services, [id number] [address] [place] [address]
[facility] [phone] Phone

[phone] Non-Invasive [phone] Cardiology Adult
Echocardiogram Laboratory Report Name:
Guera DUBOIS
Study Physician Date:
07/29/2019 [facility], 02:[address] BP: 129/50
mmHg : SALONI Fry 1950
[id number] Gender:
Female Age: Phone [phone]
[phone] Fax Height: 69
in Account (914) Number: [phone]
Adult Weight: 289 lb Echocardiogram BSA: 2.4 m2 Report Patient
Location: 5NW Name: SILVINO, Reason For JUANJO Study: CHEST Study PAIN, Date: UNSPECIFIED 07/29/2019 Ordering 02:12 PM Physician:
DONNESTER, OSHER Interpretation BP: Summary The 129/50 mmHg left ventricle
is mildly to : moderately 1950 dilated. Mild to moderate Gender: left Female ventricular
hypertrophy. Age: 68 yrs There is akinesis of the basal inferior Height: 69 in wall.
Hypokinesis of Account the basal to Number: mid [phone] inferolateral myocardium. Weight: 289 lb The remaining
LV segments BSA: 2.4 m2 contract normally. The
overall left Patient ventricular Location: 5NW ejection
fraction is Reason For normal. Left Study: CHEST ventricular PAIN, ejection UNSPECIFIED fraction is 60%.

Diastolic Ordering dysfunction, Physician: Grade II, RECHESTER, consistent with OSHER abnormal LV

relaxation and Interpretation increased left Summary atrial
pressure. The The left right ventricle is ventricular mildly to systolic moderately function is dilated. normal.
Indexed left Mild to atrial volume moderate left is moderately ventricular increased. hypertrophy. Mild valvular
aortic There is stenosis. akinesis of the There is at basal inferior least mild wall. aortic
insufficiency Hypokinesis of (may be the basal to underestimated mid due to poor inferolateral color Doppler myocardium. windows).
Mild mitral The remaining valve LV segments regurgitation. contract Trivial normally. tricuspid valve
regurgitation. The overall There was left insufficient ventricular tricuspid ejection regurgitation fraction is detected to normal. calculate
pulmonary Left artery systolic ventricular pressure. The ejection ascending aorta fraction is is mildly 60%. dilated.
Trivial Diastolic pericardial dysfunction, effusion. Grade II, ICD-10 Chest consistent with pain, unspec - abnormal LV R07.9. relaxation and Procedure A
complete increased two-dimensional left atrial transthoracic pressure. echocardiogram
was performed The right (2D, M-mode, ventricular spectral and systolic color flow function is Doppler). normal. (95252). Study
quality is Indexed left adequate. atrial volume Left Ventricle is moderately The left increased. ventricle is
mildly to Mild valvular moderately aortic dilated. Mild stenosis. to moderate
left There is at ventricular least mild hypertrophy. aortic There is a insufficiency false tendon in (may be the left underestimated ventricular due to chamber, this
is a normal poor color variant. The Doppler overall left windows). ventricular
ejection Mild mitral fraction is valve normal. Left regurgitation. ventricular
ejection Trivial fraction is tricuspid valve 60%. There is regurgitation. akinesis of the
basal inferior There was wall. insufficient Hypokinesis of tricuspid the basal to regurgitation mid detected to inferolateral calculate myocardium. The
remaining LV pulmonary segments artery systolic contract pressure. normally.
Diastolic The ascending dysfunction, aorta is mildly Grade II, dilated. consistent with
abnormal LV Trivial relaxation and pericardial increased left effusion. atrial

pressure. ICD-10 Right
Ventricle The Chest pain, right ventricle unspec - R07.9. is normal in size. There is

normal right Procedure ventricular
wall thickness. A complete The right two-dimensional ventricular transthoracic systolic echocardiogram function is was performed normal. (2D, Left Atrium
Indexed left M-mode, atrial volume spectral and is moderately color flow increased. LA Doppler). ESV Index (BP) (18932). Study - 45.6 ml/m2. quality is Right
Atrium Normal adequate. right atrial

size. Left Aortic Valve Ventricle There is mild
aortic valve The left calcification. ventricle is Mild valvular mildly to aortic moderately stenosis. dilated. Mild There is at to moderate least mild left aortic
insufficiency ventricular (may be hypertrophy. underestimated There is a due to poor false tendon in color Doppler the left windows). ventricular Mitral Valve
Mild mitral chamber, this annular is a normal calcification. variant. The Mild thickening overall left of the mitral ventricular valve ejection leaflets. There
is no mitral fraction is valve stenosis. normal. Left Mild mitral ventricular valve ejection regurgitation. fraction is 60%. There is Tricuspid Valve
Structurally akinesis of normal the basal tricuspid inferior wall. valve. There is Hypokinesis of no tricuspid the basal to stenosis. mid Trivial
tricuspid valve inferolateral regurgitation. myocardium. The Pulmonic remaining LV Valve segments Structurally contract normal pulmonic normally. valve. There is
no pulmonic Diastolic valve stenosis. dysfunction, No Grade II, significant consistent with pulmonic abnormal LV regurgitation. relaxation and Aorta The
aortic root is increased normal in size. left atrial The ascending pressure. aorta is mildly dilated. The

visualized area Right of aortic arch Ventricle is normal in
size. The right Pulmonary ventricle is Artery There normal in size. was There is normal insufficient right tricuspid ventricular regurgitation
detected to wall calculate thickness. The pulmonary right artery systolic ventricular pressure. systolic Venous The function is inferior vena normal. cava is not

well Left Atrium visualized.
Pericardium Indexed left Trivial atrial volume pericardial is moderately effusion. increased. LA MMode/2D ESV Index (BP) Measurements & - Calculations
45.6 IVSd: 1.3 cm ml/m2.

LVIDd: 5.8 cm Right Atrium LV mass(C)d:
334.4 grams Normal right LVIDs: 3.4 cm atrial size. LV mass(C)dI: 138.6 grams/m2

LVPWd: 1.3 cm Aortic Valve
There is mild aortic valve calcification. __ Ao root Mild valvular diam: 3.2 cm aortic Asc Aorta stenosis. diam: LVOT
diam: 1.6 cm There is at LA dimension: least mild 5.2 cm aortic 3.6 cm Ao insufficiency arch diam: (may be 2.6 cm underestimated due to
poor color Doppler _ Left atrial windows). volume (2c):

RA area (4c): Mitral Left atrial Valve volume index
Mild (2c): 108.0 mitral annular ml Left calcification. atrial volume Mild thickening (4c): 13.1 of the mitral cm2 44.8 valve ml/m2 98.7 ml
leaflets. There is no mitral valve stenosis. Mild mitral valve _ Left atrial
volume index regurgitation. (4c): 40.9 ml/m2

Doppler Tricuspid Measurements & Valve Calculations
MV E max sofía: Structurally MV dec normal time: 0.27 sec tricuspid Lat E' valve. There is sofía: 192.0 no tricuspid cm/sec stenosis.
Trivial 8.3 cm/sec MV tricuspid valve A max sofía: regurgitation. 142.1 cm/sec

Pulmonic Valve
_ Med E' Structurally sofía: 5.0 cm/sec normal pulmonic E/E' Lateral: valve. There is 23.2 no pulmonic AV v max: valve stenosis. E/E' Medial: No 38.4
228.5 cm/sec significant AV max P.9 pulmonic mmHg AV mean regurgitation. P.3 mmHg AV VTI: 52.1 cm

AV area Aorta (VTI): 1.5
The cm2 aortic root is normal in size. The ascending aorta is mildly dilated. _ LVOT max
P.8 mmHg The visualized Stroke volume: area of aortic 80.1 ml arch is normal PA max P.5 in size. mmHg LVOT v

max: 164.4 Pulmonary cm/sec Stroke Artery volume index:
LVOT VTI: 37.9 There was cm 33.2 insufficient ml/m2 tricuspid regurgitation detected to calculate
_ RV S sofía: pulmonary 15.7 cm/sec artery systolic E/E' Average: pressure. 30.8

Venous
The inferior vena cava is not well _ visualized. Reading Physician:

Shoaib Santiago Pericardium 07/30/2019
12:40 PM Trivial pericardial effusion.

MMode/2D Measurements & Calculations
IVSd: 1.3 cm LVIDd: 5.8 cm LV mass(C)d: 334.4 grams
LVIDs: 3.4 cm LV mass(C)dI: 138.6 grams/m2
LVPWd: 1.3 cm
_

Ao root diam: 3.2 cm Asc Aorta diam: LVOT diam: 1.6 cm
LA dimension: 5.2 cm 3.6 cm
Ao arch diam:
2.6 cm
_
Left atrial volume (2c): RA area (4c): Left atrial volume index (2c):
108.0 ml
Left atrial volume (4c): 13.1 cm2 44.8 ml/m2
98.7 ml

_
Left atrial volume index

(4c): 40.9 ml/m2

Doppler Measurements & Calculations
MV E max sofía: MV dec time: 0.27 sec Lat E' sofía:
192.0 cm/sec 8.3 cm/sec
MV A max sofía:
142.1 cm/sec
_

Med E' sofía: 5.0 cm/sec E/E' Lateral: 23.2 AV v max:
E/E' Medial: 38.4 228.5 cm/sec
AV max P.9 mmHg
AV mean P.3 mmHg
AV VTI: 52.1 cm
AV area (VTI):
1.5 cm2

_
LVOT max P.8 mmHg Stroke volume: 80.1 ml PA max P.5 mmHg
LVOT v max: 164.4 cm/sec Stroke volume index:
LVOT VTI: 37.9 cm 33.2 ml/m2

_
RV S sofía: 15.7 cm/sec E/E' Average: 30.8

_

Reading Physician:
Shoaib Santiago MD 07/30/2019 12:40 PM

</td> ID Date Data Source [id number] 07/28/2019 12:18:00 PM EDT [facility] [id number] Corporation Name Value Range Interpretation Description Data Sup porting Code Source(s) Document(s ) Chest (PACSIMAGE <td> 07/28/2019 [place] Portable 04:13</td><td> [facility] ) Final Chest Portable Health Care Result </td><td><paragr Corporation Name: diallo DUBOIS MRN: styleCode="Sandra [id number] Sex: F cs">(PACSIMAGE : 1950 Location: F )</paragraph><br Admitting />
Final Physician: Result EMERGENCY

SERVICE Name: Dami DUBOISdakhsa SIMPSONRA Physician:
MRN: JUNIOR GARCIA [id number] Sex: F Exam: CHEST
PORTABLE : 07/28/2019 1950 04:30 Location: F HISTORY: Chest
pain. Admitting TECHNIQUE: Physician: Semierect EMERGENCY portable chest SERVICE radiograph.
COMPARISON: Requesting Chest Physician: JUNIOR GARCIA 03/04/2013.

FINDINGS: Exam: CHEST There is PORTABLE cardiomegaly. 07/28/2019 04:30 There is mild uncoiling of

the thoracic HISTORY: aorta. There Chest pain. are

atherosclerotic TECHNIQUE: calcifications Semierect of the aortic portable chest arch. There is radiograph. no focal pulmonary

consolidation. COMPARISON: There are Chest radiograph slightly 03/04/2013. increased interstitial

markings at the FINDINGS: lung bases, which may

reflect mild There is vascular cardiomegaly. congestion. There is mild There is no uncoiling of the pleural thoracic effusion or
pneumothorax. aorta. There are atherosclerotic IMPRESSION: calcifications Cardiomegaly of the aortic with possible
mild vascular arch. There is congestion. no focal No focal pulmonary consolidation. consolidation. There are Resident slightly Radiologist:
Kieran Hogan MD increased Resident interstitial Radiologist markings at the Attending lung bases, Radiologist: which may Nelsy Livingston
Finalizing reflect mild Radiologist: vascular Nelsy Livingston congestion. Transcribed There is no Date: pleural effusion 07/28/2019
05:01 or Finalized Date: pneumothorax. 07/28/2019 06:35

IMPRESSION:

Cardiomegaly with possible mild vascular congestion.

No focal consolidation.

< br/> Resident Radiologist: Kieran Hogan MD Resident Radiologist
Attending Radiologist: Nelsy Livingston
Finalizing Radiologist: Nelsy Livingston
Transcribed Date: 07/28/2019 05:01
Finalized Date: 07/28/2019 06:35

</td> Abdomen (PACSIMAGE <td> 07/28/2019 [facility] 12:18</td><td> [facility] ) Final Abdomen Limited Health Care Result Corporation Name: SILVINO, </td><td><paragr JUANJO MRN: aph [id number] Sex: F styleCode="Itali : cs">(PACSIMAGE 1950 Location: F Admitting )</paragraph><br Physician: />
Final EMERGENCY Result SERVICE

Requesting Name: DUBOIS Physician: JUANJO GARCIA
MRN: Exam: US [id number] Sex: F ABDOMEN LIMITED
07/28/2019 : 12:48 1950 ULTRASOUND OF Location: F THE ABDOMEN -
RUQ Admitting HISTORY: Right Physician: upper quadrant EMERGENCY pain SERVICE COMPARISON:
Previous Requesting ultrasound Physician: JUNIOR 03/05/2013 JOSE TECHNIQUE:

Real-time Exam: US examination of ABDOMEN LIMITED the abdomen was 07/28/2019 12:48 performed. FINDINGS:

Real-time ULTRASOUND OF examination of THE ABDOMEN - the upper RUQ abdomen

demonstrates HISTORY: Right heterogeneous upper quadrant coarsened pain echotexture

correlate with COMPARISON: laboratory Previous values for ultrasound underlying 03/05/2013 liver disease.

There is no TECHNIQUE: evidence of
intra- or extra Real-time hepatic examination of biliary ductal the abdomen was dilatation. performed. Possible

prominent FINDINGS: vessels in the region of the

falciform Real-time ligament. examination of Gallbladder the upper wall thickening abdomen with scattered demonstrates echogenic foci heterogeneous raises
possibility of coarsened adenomyomatosis echotexture . Possible correlate with small layering laboratory stones. No values for pericholecystic underlying fluid.
There is no liver disease. evidence of There is no ascites. evidence of IMPRESSION: intra- or extra Slightly hepatic coarsened
echotexture of biliary ductal the liver dilatation. raising the Possible possibility prominent of underlying vessels in the liver disease.
Cannot exclude region of the recanalization falciform of the ligament. paraumbilical

vein. Gallbladder Correlation wall thickening with with scattered cross-sectional echogenic foci imaging if raises clinically
appropriate. possibility of Probable adenomyomatosis. adenomyomatosis Possible small . layering stones. Resident
Radiologist: No Attending pericholecystic Radiologist: fluid. Aida Lozoya

Finalizing There is no Radiologist: evidence of Aida Darell ascites.

Transcribed IMPRESSION: Date:
07/28/2019 Slightly 13:08 coarsened Finalized Date: echotexture of 07/28/2019 the liver 13:11 raising the possibility
of underlying liver disease. Cannot exclude recanalization of
the paraumbilical vein. Correlation with cross-sectional imaging
if clinically appropriate.

Probable adenomyomatosis.

< br/> Resident Radiologist:
Attending Radiologist: Aida Lozoya MD
Finalizing Radiologist: Aida Lozoya MD
Transcribed Date: 07/28/2019 13:08
Finalized Date: 07/28/2019 13:11

</td> ID Date Data Source [id number] 07/28/2019 04:29:00 AM EDT [facility] [id number] Corporation Name Value Range Interpretation Description Data Source(s ) Supporting Code Document(s ) Specimen 07/31/20 <td> [place] expiration 19 23:59 07/28/2019 [facility] date of Blood 04:29</td><td> Care Specimen [employer] Expiration Date </td><td> 07/31/2019 23:59
</td> Antibody NEG <td> [place] Screen 07/28/2019 [facility] 04:29</td><td> Care Antibody Corporation Screen </td><td> NEG
</td> ABO-Rh Type A POS <td> [place] 07/28/2019 [facility] 04:29</td><td> Care ABO-Rh Type Corporation </td><td> A POS
</td> ID Date Data Source Liver 05/12/2019 04:50:00 AM EDT [facility] Profile.[id number] Name Value Range Interpretation Description Data Sup porting Code Source(s) Document(s ) Aspartate 14-36 <content [facility] aminotransferase styleCode="Bold"> Charly hs [Enzymatic Aspartate Medical activity/volume] Aminotransferase Center in Serum or Plasma (AST) </content>19 IU/L<content styleCode="Italic s"> (14-36 IU/L)</content> Alkaline 38-126 <content [facility] phosphatase styleCode="Bold"> Nhan [Enzymatic Alkaline Medical activity/volume] Phosphatase (ALP) Cente r in Serum or Plasma </content>81 IU/L<content styleCode="Italic s"> (38-126 IU/L)</content> Bilirubin.total 0.2-1.3 <content [facility] [Mass/volume] in styleCode="Bold"> Charly hs Serum or Plasma Bilirubin Total Medical </content>0.9 Center MG/DL<content styleCode="Italic s"> (0.2-1.3 MG/DL)</content> Alanine 7-30 <content [facility] aminotransferase styleCode="Bold"> Charly hs [Enzymatic Alanine Medical activity/volume] Aminotransferase Center in Serum or Plasma (ALT) </content>16 IU/L<content styleCode="Italic s"> (7-30 IU/L)</content> Albumin 3.5-5.0 Below low <content [facility] [Mass/volume] in normal styleCode="Bold"> Charly hs Serum or Plasma Albumin Medical </content>2.9 Center G/DL L<content styleCode="Italic s"> (3.5-5.0 G/DL)</content> ID Date Data Source HematologyRou.[id number] 05/12/2019 04:50:00 AM EDT [facility] 0400 Name Value Range Interpretation Description Data Sup porting Code Source(s) Document(s ) Leukocytes 4.4-11.0 <content [facility] [#/volume] in styleCode="Bold Nhan Blood by ">White Blood Medical Automated count Cell Count Center </content>10.88 KCUMM<content styleCode="Ital ics"> (4.4-11.0 KCUMM)</content > Erythrocytes 4.0-5.1 Below low normal <content [facility] [#/volume] in styleCode="Bold Nhan Blood by ">Red Blood Medical Automated count Cell Count Center </content>3.30 MCUMM L<content styleCode="Ital ics"> (4.0-5.1 MCUMM)</content > Hematocrit 36.0-46. Below low normal <content [facility] [Volume 0 styleCode="Bold [facility] Fraction] of ">Hematocrit Medical Blood by </content>27.2 Center Automated count % L<content styleCode="Ital ics"> (36.0-46.0 %)</content> Erythrocyte mean 26.0-34. Below low normal <content [facility] corpuscular 0 styleCode="Bold [facility] hemoglobin ">Mean Medical [Entitic mass] Corposcular Center by Automated Hemoglobin count </content>24.8 PG L<content styleCode="Ital ics"> (26.0-34.0 PG)</content> Erythrocyte mean 80.0-100 <content [facility] corpuscular .0 styleCode="Bold Nhan volume [Entitic ">Mean Medical volume] by Corpuscular Center Automated count Volume </content>82.4 FL<content styleCode="Ital ics"> (80.0-100.0 FL)</content> Hemoglobin 12.3-16. Below low normal <content [facility] [Mass/volume] in 0 styleCode="Bold Nhan Blood ">Hemoglobin Medical </content>8.2 Center G/DL L<content styleCode="Ital ics"> (12.3-16.0 G/DL)</content> Erythrocyte mean 32.0-37. Below low normal <content [facility] corpuscular 0 styleCode="Bold Nhan hemoglobin ">Mean Corpus. Medical concentration Hgb Center [Mass/volume] by Concentration Automated count (MCHC) </content>30.1 G/DL L<content styleCode="Ital ics"> (32.0-37.0 G/DL)</content> Platelets 130-400 <content [facility] [#/volume] in styleCode="Bold Nhan Blood by ">Platelet Medical Automated count Count Center </content>324 KCUMM<content styleCode="Ital ics"> (130-400 KCUMM)</content > Erythrocyte 11.5-14. Above high <content [facility] distribution 5 normal styleCode="Bold Nhan width [Ratio] by ">Red Cell Medical Automated count Distribution Center Width </content>20.6 % H<content styleCode="Ital ics"> (11.5-14.5 %)</content> Neutrophils 36-66 Above high <content [facility] [#/volume] in normal styleCode="Bold Nhan Blood by ">Neutrophil Medical Automated count </content>74.4 Center % H<content styleCode="Ital ics"> (36-66 %)</content> UNK 1.6-7.3 Above high <content [facility] normal styleCode="Bold Nhan ">Neutrophil Medical Count Center </content>8.09 KCUMM H<content styleCode="Ital ics"> (1.6-7.3 KCUMM)</content > Platelet mean 8.0-11.0 <content [facility] volume [Entitic styleCode="Bold Nhan volume] in Blood ">Mean Platelet Medical by Automated Volume Center count </content>10.8 FL<content styleCode="Ital ics"> (8.0-11.0 FL)</content> Lymphocytes 24.0-44. Below low normal <content [facility] [#/volume] in 0 styleCode="Bold Nhan Blood by ">Lymphocyte Medical Automated count </content>15.0 Center % L<content styleCode="Ital ics"> (24.0-44.0 %)</content> UNK 0.2-0.9 <content [facility] styleCode="Bold Nhan ">Monocyte Medical Count Center </content>0.83 KCUMM<content styleCode="Ital ics"> (0.2-0.9 KCUMM)</content > UNK 1.0-4.8 <content [facility] styleCode="Bold Nhan ">Lymphocyte Medical Count Center </content>1.63 KCUMM<content styleCode="Ital ics"> (1.0-4.8 KCUMM)</content > Monocytes 3.0-10.0 <content [facility] [#/volume] in styleCode="Bold Nhan Blood by ">Monocyte Medical Automated count </content>7.6 Center %<content styleCode="Ital ics"> (3.0-10.0 %)</content> UNK 0.0-0.6 <content [facility] styleCode="Bold Nhan ">Eosinophil Medical Count Center </content>0.21 KCUMM<content styleCode="Ital ics"> (0.0-0.6 KCUMM)</content > Eosinophils 0-5.0 <content Saint [#/volume] in styleCode="Bold Nhan Blood by ">Eosinophil Medical Automated count </content>1.9 Center %<content styleCode="Ital ics"> (0-5.0 %)</content> Basophils 0.0-1.0 <content [facility] [#/volume] in styleCode="Bold [facility] Blood by ">Basophil Medical Automated count </content>0.4 Center %<content styleCode="Ital ics"> (0.0-1.0 %)</content> UNK 0.0-0.3 <content [facility] styleCode="Bold Nhan ">Basophil Medical Count Center </content>0.04 KCUMM<content styleCode="Ital ics"> (0.0-0.3 KCUMM)</content > UNK 0 <content [facility] styleCode="Bold Nhan ">Nucleated Red Medical Blood Cell Center </content>0.0 /100<content styleCode="Ital ics"> (0 /100)</content> UNK 0.0 <content [facility] styleCode="Bold Nhan ">Nucleated Red Medical Blood Cell Center Count </content>0.00 KCUMM<content styleCode="Ital ics"> (0.0 KCUMM)</content > UNK < 1 <content Saint styleCode="Bold Nhan ">Immature Medical Granulocyte Center Ratio </content>0.7 %<content styleCode="Ital ics"> (< 1 %)</content> UNK 0-0.1 <content [facility] styleCode="Bold Nhan ">Immature Medical Granulocyte Center Count </content>0.08 KCUMM<content styleCode="Ital ics"> (0-0.1 KCUMM)</content > ID Date Data Source GFR(Creatinine).[id number] 05/12/2019 04:50:00 AM EDT [facility] 0-0400 Name Value Range Interpretation Code Description Data Ashlee rce(s) Supporting Document(s ) UNK > 60 Below low normal <content [facility] styleCode="Bold"> Medical Cent er EGFR </content>48 GFR L<content styleCode="Italic s"> (> 60 GFR)</content> ID Date Data Source CHMROUTINECCDA.[id number] 05/12/2019 04:50:00 AM EDT [facility] -0400 Name Value Range Interpretation Description Data Sup porting Code Source(s) Document(s ) UNK >= 1.0 Below low normal <content [facility] styleCode="Mike Nhan d">AG Ratio Medical </content>0.9 Center L<content styleCode="Evelyn lics"> (>= 1.0 )</content> Magnesium 1.6-2.3 <content [facility] [Mass/volume] styleCode="Mike Nhan in Serum or d">Magnesium Medical Plasma </content>1.6 Center MG/DL<content styleCode="Evelyn lics"> (1.6-2.3 MG/DL)</conten t> Phosphate 2.5-4.5 <content [facility] [Mass/volume] styleCode="Mike Nhan in Serum or d">Phosphorus Medical Plasma </content>3.7 Center MG/DL<content styleCode="Evelyn lics"> (2.5-4.5 MG/DL)</conten t> UNK 2.3-3.5 <content [facility] styleCode="Mike Nhan d">Globulin Medical </content>3.3 Center G/DL<content styleCode="Evelyn lics"> (2.3-3.5 G/DL)</content > Protein 6.3-8.2 Below low normal <content [facility] [Mass/volume] styleCode="Mike Nhan in Serum or d">Total Medical Plasma Protein Center </content>6.2 G/DL L<content styleCode="Evelyn lics"> (6.3-8.2 G/DL)</content > ID Date Data Source [facility].[id number] 05/12/2019 04:50:00 AM EDT [facility] Name Value Range Interpretation Description Data Sup porting Code Source(s) Document(s ) Chloride 98-107 <content [facility] [Moles/volume] in styleCode="Bold"> Matthew prem Serum or Plasma Chloride Medical </content>101 Center MEQ/L<content styleCode="Italic s"> (98-107 MEQ/L)</content> Potassium 3.5-5.3 <content [facility] [Moles/volume] in styleCode="Bold"> Matthew phs Serum or Plasma Potassium Medical </content>3.7 Center MEQ/L<content styleCode="Italic s"> (3.5-5.3 MEQ/L)</content> Carbon dioxide, 22-30 Above high <content [facility] total normal styleCode="Bold"> Nhan [Moles/volume] in Carbon Dioxide Medical Serum or Plasma </content>35 Center MEQ/L H<content styleCode="Italic s"> (22-30 MEQ/L)</content> Sodium 137-145 <content [facility] [Moles/volume] in styleCode="Bold"> Matthew phs Serum or Plasma Sodium Medical </content>142 Center MEQ/L<content styleCode="Italic s"> (137-145 MEQ/L)</content> Creatinine 0.5-1.3 Above high <content [facility] [Mass/volume] in normal styleCode="Bold"> Charly hs Serum or Plasma Creatinine Medical </content>1.4 Center MG/DL H<content styleCode="Italic s"> (0.5-1.3 MG/DL)</content> UNK 7-17 Above high <content [facility] normal styleCode="Bold"> Nhan BUN </content>19 Medical MG/DL H<content Center styleCode="Italic s"> (7-17 MG/DL)</content> Calcium 8.4-10. <content [facility] [Mass/volume] in 2 styleCode="Bold"> Charly hs Serum or Plasma Calcium Medical </content>9.0 Center MG/DL<content styleCode="Italic s"> (8.4-10.2 MG/DL)</content> Glucose 74-106 <content [facility] [Mass/volume] in styleCode="Bold"> Charly hs Serum or Plasma Glucose Medical </content>106 Center MG/DL<content styleCode="Italic s"> (74-106 MG/DL)</content> Alanine 7-30 <content [facility] aminotransferase styleCode="Bold"> Charly hs [Enzymatic Alanine Medical activity/volume] Aminotransferase Center in Serum or Plasma (ALT) </content>16 IU/L<content styleCode="Italic s"> (7-30 IU/L)</content> Aspartate 14-36 <content [facility] aminotransferase styleCode="Bold"> Charly hs [Enzymatic Aspartate Medical activity/volume] Aminotransferase Center in Serum or Plasma (AST) </content>19 IU/L<content styleCode="Italic s"> (14-36 IU/L)</content> Alkaline 38-126 <content [facility] phosphatase styleCode="Bold"> Nhan [Enzymatic Alkaline Medical activity/volume] Phosphatase (ALP) Cente r in Serum or Plasma </content>81 IU/L<content styleCode="Italic s"> (38-126 IU/L)</content> UNK > 60 Below low <content [facility] normal styleCode="Bold"> Nhan EGFR </content>48 Medical GFR L<content Center styleCode="Italic s"> (> 60 GFR)</content> Bilirubin.total 0.2-1.3 <content [facility] [Mass/volume] in styleCode="Bold"> Charly hs Serum or Plasma Bilirubin Total Medical </content>0.9 Center MG/DL<content styleCode="Italic s"> (0.2-1.3 MG/DL)</content> Albumin 3.5-5.0 Below low <content [facility] [Mass/volume] in normal styleCode="Bold"> Charly hs Serum or Plasma Albumin Medical </content>2.9 Center G/DL L<content styleCode="Italic s"> (3.5-5.0 G/DL)</content> ID Date Data Source Liver 05/11/2019 05:30:00 AM EDT [facility] Profile.[id number] Name Value Range Interpretation Description Data Sup porting Code Source(s) Document(s ) Aspartate 14-36 <content [facility] aminotransferase styleCode="Bold"> Charly hs [Enzymatic Aspartate Medical activity/volume] Aminotransferase Center in Serum or Plasma (AST) </content>20 IU/L<content styleCode="Italic s"> (14-36 IU/L)</content> Alkaline 38-126 <content [facility] phosphatase styleCode="Bold"> Nhan [Enzymatic Alkaline Medical activity/volume] Phosphatase (ALP) Cente r in Serum or Plasma </content>87 IU/L<content styleCode="Italic s"> (38-126 IU/L)</content> Alanine 7-30 <content [facility] aminotransferase styleCode="Bold"> Charly hs [Enzymatic Alanine Medical activity/volume] Aminotransferase Center in Serum or Plasma (ALT) </content>20 IU/L<content styleCode="Italic s"> (7-30 IU/L)</content> Bilirubin.total 0.2-1.3 <content [facility] [Mass/volume] in styleCode="Bold"> Charly hs Serum or Plasma Bilirubin Total Medical </content>0.9 Center MG/DL<content styleCode="Italic s"> (0.2-1.3 MG/DL)</content> Albumin 3.5-5.0 Below low <content [facility] [Mass/volume] in normal styleCode="Bold"> Charly hs Serum or Plasma Albumin Medical </content>3.0 Center G/DL L<content styleCode="Italic s"> (3.5-5.0 G/DL)</content> ID Date Data Source HematologyRou.[id number] 05/11/2019 05:30:00 AM EDT [facility] 0400 Name Value Range Interpretation Description Data Sup porting Code Source(s) Document(s ) Leukocytes 4.4-11.0 <content [facility] [#/volume] in styleCode="Bold Nhan Blood by ">White Blood Medical Automated count Cell Count Center </content>8.11 KCUMM<content styleCode="Ital ics"> (4.4-11.0 KCUMM)</content > Erythrocytes 4.0-5.1 Below low normal <content [facility] [#/volume] in styleCode="Bold Nhan Blood by ">Red Blood Medical Automated count Cell Count Center </content>3.27 MCUMM L<content styleCode="Ital ics"> (4.0-5.1 MCUMM)</content > Hematocrit 36.0-46. Below low normal <content [facility] [Volume 0 styleCode="Bold Nhan Fraction] of ">Hematocrit Medical Blood by </content>27.4 Center Automated count % L<content styleCode="Ital ics"> (36.0-46.0 %)</content> Hemoglobin 12.3-16. Below low normal <content [facility] [Mass/volume] in 0 styleCode="Bold Nhan Blood ">Hemoglobin Medical </content>8.2 Center G/DL L<content styleCode="Ital ics"> (12.3-16.0 G/DL)</content> Erythrocyte mean 80.0-100 <content [facility] corpuscular .0 styleCode="Bold Nhan volume [Entitic ">Mean Medical volume] by Corpuscular Center Automated count Volume </content>83.8 FL<content styleCode="Ital ics"> (80.0-100.0 FL)</content> Platelets 130-400 <content [facility] [#/volume] in styleCode="Bold Nhan Blood by ">Platelet Medical Automated count Count Center </content>310 KCUMM<content styleCode="Ital ics"> (130-400 KCUMM)</content > Erythrocyte 11.5-14. Above high <content [facility] distribution 5 normal styleCode="Bold Nahn width [Ratio] by ">Red Cell Medical Automated count Distribution Center Width </content>20.2 % H<content styleCode="Ital ics"> (11.5-14.5 %)</content> Erythrocyte mean 32.0-37. Below low normal <content [facility] corpuscular 0 styleCode="Bold Nhan hemoglobin ">Mean Corpus. Medical concentration Hgb Center [Mass/volume] by Concentration Automated count (MCHC) </content>29.9 G/DL L<content styleCode="Ital ics"> (32.0-37.0 G/DL)</content> Erythrocyte mean 26.0-34. Below low normal <content [facility] corpuscular 0 styleCode="Bold Nhan hemoglobin ">Mean Medical [Entitic mass] Corposcular Center by Automated Hemoglobin count </content>25.1 PG L<content styleCode="Ital ics"> (26.0-34.0 PG)</content> UNK 1.6-7.3 <content Saint styleCode="Bold Nhan ">Neutrophil Medical Count Center </content>5.72 KCUMM<content styleCode="Ital ics"> (1.6-7.3 KCUMM)</content > Platelet mean 8.0-11.0 <content [facility] volume [Entitic styleCode="Bold Nhan volume] in Blood ">Mean Platelet Medical by Automated Volume Center count </content>10.2 FL<content styleCode="Ital ics"> (8.0-11.0 FL)</content> Neutrophils 36-66 Above high <content Saint [#/volume] in normal styleCode="Bold Nhan Blood by ">Neutrophil Medical Automated count </content>70.5 Center % H<content styleCode="Ital ics"> (36-66 %)</content> Monocytes 3.0-10.0 <content Saint [#/volume] in styleCode="Bold Nahn Blood by ">Monocyte Medical Automated count </content>8.5 Center %<content styleCode="Ital ics"> (3.0-10.0 %)</content> UNK 1.0-4.8 <content Saint styleCode="Bold Nhan ">Lymphocyte Medical Count Center </content>1.41 KCUMM<content styleCode="Ital ics"> (1.0-4.8 KCUMM)</content > Lymphocytes 24.0-44. Below low normal <content Saint [#/volume] in 0 styleCode="Bold Nhan Blood by ">Lymphocyte Medical Automated count </content>17.4 Center % L<content styleCode="Ital ics"> (24.0-44.0 %)</content> UNK 0.0-0.6 <content Saint styleCode="Bold Nhan ">Eosinophil Medical Count Center </content>0.21 KCUMM<content styleCode="Ital ics"> (0.0-0.6 KCUMM)</content > UNK 0.2-0.9 <content Saint styleCode="Bold Nhan ">Monocyte Medical Count Center </content>0.69 KCUMM<content styleCode="Ital ics"> (0.2-0.9 KCUMM)</content > Eosinophils 0-5.0 <content Saint [#/volume] in styleCode="Bold Nhan Blood by ">Eosinophil Medical Automated count </content>2.6 Center %<content styleCode="Ital ics"> (0-5.0 %)</content> UNK 0.0-0.3 <content Saint styleCode="Bold Nhan ">Basophil Medical Count Center </content>0.03 KCUMM<content styleCode="Ital ics"> (0.0-0.3 KCUMM)</content > UNK 0 <content Saint styleCode="Bold Nhan ">Nucleated Red Medical Blood Cell Center </content>0.0 /100<content styleCode="Ital ics"> (0 /100)</content> Basophils 0.0-1.0 <content Saint [#/volume] in styleCode="Bold Nhan Blood by ">Basophil Medical Automated count </content>0.4 Center %<content styleCode="Ital ics"> (0.0-1.0 %)</content> UNK < 1 <content [facility] styleCode="Bold Nhan ">Immature Medical Granulocyte Center Ratio </content>0.6 %<content styleCode="Ital ics"> (< 1 %)</content> UNK 0.0 <content Saint styleCode="Bold Nhan ">Nucleated Red Medical Blood Cell Center Count </content>0.00 KCUMM<content styleCode="Ital ics"> (0.0 KCUMM)</content > UNK 0-0.1 <content Saint styleCode="Bold Nhan ">Immature Medical Granulocyte Center Count </content>0.05 KCUMM<content styleCode="Ital ics"> (0-0.1 KCUMM)</content > ID Date Data Source GFR(Creatinine).[id number] 05/11/2019 05:30:00 AM EDT [facility] 0-0400 Name Value Range Interpretation Code Description Data Ashlee rce(s) Supporting Document(s ) UNK > 60 Below low normal <content [facility] styleCode="Bold"> Medical Cent er EGFR </content>52 GFR L<content styleCode="Italic s"> (> 60 GFR)</content> ID Date Data Source MOI.[id number] 05/11/2019 05:30:00 AM EDT [facility] Name Value Range Interpretation Description Data Sup porting Code Source(s) Document(s ) UNK 2.3-3.5 <content [facility] styleCode="Mike Nhan d">Globulin Medical </content>3.4 Center G/DL<content styleCode="Evelyn lics"> (2.3-3.5 G/DL)</content > UNK >= 1.0 Below low normal <content [facility] styleCode="Mike Nhan d">AG Ratio Medical </content>0.9 Center L<content styleCode="Evelyn lics"> (>= 1.0 )</content> Phosphate 2.5-4.5 <content [facility] [Mass/volume] styleCode="Mike Nhan in Serum or d">Phosphorus Medical Plasma </content>3.4 Center MG/DL<content styleCode="Evelyn lics"> (2.5-4.5 MG/DL)</conten t> Protein 6.3-8.2 <content [facility] [Mass/volume] styleCode="Mike Nhan in Serum or d">Total Medical Plasma Protein Center </content>6.4 G/DL<content styleCode="Evelyn lics"> (6.3-8.2 G/DL)</content > Magnesium 1.6-2.3 <content [facility] [Mass/volume] styleCode="Mike Nhan in Serum or d">Magnesium Medical Plasma </content>1.7 Center MG/DL<content styleCode="Evelyn lics"> (1.6-2.3 MG/DL)</conten t> ID Date Data Source MANDA.[id number] 05/11/2019 05:30:00 AM EDT [facility] Name Value Range Interpretation Description Data Sup porting Code Source(s) Document(s ) Sodium 137-145 Above high <content Saint [Moles/volume] in normal styleCode="Bold"> Matthew phs Serum or Plasma Sodium Medical </content>146 Center MEQ/L H<content styleCode="Italic s"> (137-145 MEQ/L)</content> Chloride 98-107 <content [facility] [Moles/volume] in styleCode="Bold"> Matthew phs Serum or Plasma Chloride Medical </content>100 Center MEQ/L<content styleCode="Italic s"> (98-107 MEQ/L)</content> UNK 7-17 Above high <content [facility] normal styleCode="Bold"> Nhan BUN </content>19 Medical MG/DL H<content Center styleCode="Italic s"> (7-17 MG/DL)</content> Carbon dioxide, 22-30 Above high <content [facility] total normal styleCode="Bold"> Nhan [Moles/volume] in Carbon Dioxide Medical Serum or Plasma </content>33 Center MEQ/L H<content styleCode="Italic s"> (22-30 MEQ/L)</content> Potassium 3.5-5.3 Below low <content [facility] [Moles/volume] in normal styleCode="Bold"> Matthew phs Serum or Plasma Potassium Medical </content>3.3 Center MEQ/L L<content styleCode="Italic s"> (3.5-5.3 MEQ/L)</content> Aspartate 14-36 <content [facility] aminotransferase styleCode="Bold"> Charly hs [Enzymatic Aspartate Medical activity/volume] Aminotransferase Center in Serum or Plasma (AST) </content>20 IU/L<content styleCode="Italic s"> (14-36 IU/L)</content> UNK > 60 Below low <content [facility] normal styleCode="Bold"> Nhan EGFR </content>52 Medical GFR L<content Center styleCode="Italic s"> (> 60 GFR)</content> Calcium 8.4-10. <content [facility] [Mass/volume] in 2 styleCode="Bold"> Charly hs Serum or Plasma Calcium Medical </content>9.0 Center MG/DL<content styleCode="Italic s"> (8.4-10.2 MG/DL)</content> Creatinine 0.5-1.3 <content [facility] [Mass/volume] in styleCode="Bold"> Charly hs Serum or Plasma Creatinine Medical </content>1.3 Center MG/DL<content styleCode="Italic s"> (0.5-1.3 MG/DL)</content> Glucose 74-106 <content [facility] [Mass/volume] in styleCode="Bold"> Charly hs Serum or Plasma Glucose Medical </content>101 Center MG/DL<content styleCode="Italic s"> (74-106 MG/DL)</content> Alanine 7-30 <content [facility] aminotransferase styleCode="Bold"> Charly hs [Enzymatic Alanine Medical activity/volume] Aminotransferase Center in Serum or Plasma (ALT) </content>20 IU/L<content styleCode="Italic s"> (7-30 IU/L)</content> Albumin 3.5-5.0 Below low <content [facility] [Mass/volume] in normal styleCode="Bold"> Charly hs Serum or Plasma Albumin Medical </content>3.0 Center G/DL L<content styleCode="Italic s"> (3.5-5.0 G/DL)</content> Bilirubin.total 0.2-1.3 <content [facility] [Mass/volume] in styleCode="Bold"> Charly hs Serum or Plasma Bilirubin Total Medical </content>0.9 Center MG/DL<content styleCode="Italic s"> (0.2-1.3 MG/DL)</content> Alkaline 38-126 <content [facility] phosphatase styleCode="Bold"> [facility] [Enzymatic Alkaline Medical activity/volume] Phosphatase (ALP) Cente r in Serum or Plasma </content>87 IU/L<content styleCode="Italic s"> (38-126 IU/L)</content> ID Date Data Source Liver 05/10/2019 07:00:00 AM EDT [facility] Profile.[id number] Name Value Range Interpretation Description Data Sup porting Code Source(s) Document(s ) Aspartate 14-36 <content [facility] aminotransferase styleCode="Bold"> [facility] [Enzymatic Aspartate Medical activity/volume] Aminotransferase Center in Serum or Plasma (AST) </content>26 IU/L<content styleCode="Italic s"> (14-36 IU/L)</content> Alanine 7-30 <content [facility] aminotransferase styleCode="Bold"> [facility] [Enzymatic Alanine Medical activity/volume] Aminotransferase Center in Serum or Plasma (ALT) </content>24 IU/L<content styleCode="Italic s"> (7-30 IU/L)</content> Alkaline 38-126 <content [facility] phosphatase styleCode="Bold"> [facility] [Enzymatic Alkaline Medical activity/volume] Phosphatase (ALP) Cente r in Serum or Plasma </content>107 IU/L<content styleCode="Italic s"> (38-126 IU/L)</content> Bilirubin.total 0.2-1.3 <content [facility] [Mass/volume] in styleCode="Bold"> [facility] Serum or Plasma Bilirubin Total Medical </content>1.3 Center MG/DL<content styleCode="Italic s"> (0.2-1.3 MG/DL)</content> Albumin 3.5-5.0 Below low <content [facility] [Mass/volume] in normal styleCode="Bold"> [facility] Serum or Plasma Albumin Medical </content>3.4 Center G/DL L<content styleCode="Italic s"> (3.5-5.0 G/DL)</content> ID Date Data Source HematologyRou.[id number] 05/10/2019 07:00:00 AM EDT Fernando nt [facility] 0400 Name Value Range Interpretation Description Data Sup porting Code Source(s) Document(s ) Leukocytes 4.4-11.0 <content [facility] [#/volume] in styleCode="Bold Nhan Blood by ">White Blood Medical Automated count Cell Count Center </content>7.46 KCUMM<content styleCode="Ital ics"> (4.4-11.0 KCUMM)</content > Hematocrit 36.0-46. Below low normal <content [facility] [Volume 0 styleCode="Bold Nhan Fraction] of ">Hematocrit Medical Blood by </content>29.4 Center Automated count % L<content styleCode="Ital ics"> (36.0-46.0 %)</content> Erythrocytes 4.0-5.1 Below low normal <content [facility] [#/volume] in styleCode="Bold Nhan Blood by ">Red Blood Medical Automated count Cell Count Center </content>3.50 MCUMM L<content styleCode="Ital ics"> (4.0-5.1 MCUMM)</content > Hemoglobin 12.3-16. Below low normal <content [facility] [Mass/volume] in 0 styleCode="Bold Nhan Blood ">Hemoglobin Medical </content>8.8 Center G/DL L<content styleCode="Ital ics"> (12.3-16.0 G/DL)</content> Erythrocyte mean 80.0-100 <content [facility] corpuscular .0 styleCode="Bold Nhan volume [Entitic ">Mean Medical volume] by Corpuscular Center Automated count Volume </content>84.0 FL<content styleCode="Ital ics"> (80.0-100.0 FL)</content> Erythrocyte mean 32.0-37. Below low normal <content [facility] corpuscular 0 styleCode="Bold Nhan hemoglobin ">Mean Corpus. Medical concentration Hgb Center [Mass/volume] by Concentration Automated count (MCHC) </content>29.9 G/DL L<content styleCode="Ital ics"> (32.0-37.0 G/DL)</content> Erythrocyte mean 26.0-34. Below low normal <content [facility] corpuscular 0 styleCode="Bold Nhan hemoglobin ">Mean Medical [Entitic mass] Corposcular Center by Automated Hemoglobin count </content>25.1 PG L<content styleCode="Ital ics"> (26.0-34.0 PG)</content> Platelet mean 8.0-11.0 <content [facility] volume [Entitic styleCode="Bold Nhan volume] in Blood ">Mean Platelet Medical by Automated Volume Center count </content>10.2 FL<content styleCode="Ital ics"> (8.0-11.0 FL)</content> Platelets 130-400 <content [facility] [#/volume] in styleCode="Bold Nhan Blood by ">Platelet Medical Automated count Count Center </content>343 KCUMM<content styleCode="Ital ics"> (130-400 KCUMM)</content > Erythrocyte 11.5-14. Above high <content [facility] distribution 5 normal styleCode="Bold Nhan width [Ratio] by ">Red Cell Medical Automated count Distribution Center Width </content>20.0 % H<content styleCode="Ital ics"> (11.5-14.5 %)</content> Neutrophils 36-66 Above high <content [facility] [#/volume] in normal styleCode="Bold Nhan Blood by ">Neutrophil Medical Automated count </content>73.1 Center % H<content styleCode="Ital ics"> (36-66 %)</content> UNK 1.6-7.3 <content [facility] styleCode="Bold Nhan ">Neutrophil Medical Count Center </content>5.45 KCUMM<content styleCode="Ital ics"> (1.6-7.3 KCUMM)</content > Lymphocytes 24.0-44. Below low normal <content [facility] [#/volume] in 0 styleCode="Bold Nhan Blood by ">Lymphocyte Medical Automated count </content>14.7 Center % L<content styleCode="Ital ics"> (24.0-44.0 %)</content> UNK 0.2-0.9 <content [facility] styleCode="Bold Nhan ">Monocyte Medical Count Center </content>0.64 KCUMM<content styleCode="Ital ics"> (0.2-0.9 KCUMM)</content > UNK 1.0-4.8 <content [facility] styleCode="Bold Nhan ">Lymphocyte Medical Count Center </content>1.10 KCUMM<content styleCode="Ital ics"> (1.0-4.8 KCUMM)</content > Monocytes 3.0-10.0 <content [facility] [#/volume] in styleCode="Bold Nhan Blood by ">Monocyte Medical Automated count </content>8.6 Center %<content styleCode="Ital ics"> (3.0-10.0 %)</content> UNK 0.0-0.6 <content [facility] styleCode="Bold Nhan ">Eosinophil Medical Count Center </content>0.21 KCUMM<content styleCode="Ital ics"> (0.0-0.6 KCUMM)</content > Basophils 0.0-1.0 <content [facility] [#/volume] in styleCode="Bold Nhan Blood by ">Basophil Medical Automated count </content>0.4 Center %<content styleCode="Ital ics"> (0.0-1.0 %)</content> Eosinophils 0-5.0 <content [facility] [#/volume] in styleCode="Bold Nhan Blood by ">Eosinophil Medical Automated count </content>2.8 Center %<content styleCode="Ital ics"> (0-5.0 %)</content> UNK 0 <content [facility] styleCode="Bold Nhan ">Nucleated Red Medical Blood Cell Center </content>0.0 /100<content styleCode="Ital ics"> (0 /100)</content> UNK 0.0-0.3 <content [facility] styleCode="Bold Nhan ">Basophil Medical Count Center </content>0.03 KCUMM<content styleCode="Ital ics"> (0.0-0.3 KCUMM)</content > UNK 0.0 <content [facility] styleCode="Bold Nhan ">Nucleated Red Medical Blood Cell Center Count </content>0.00 KCUMM<content styleCode="Ital ics"> (0.0 KCUMM)</content > UNK 0-0.1 <content [facility] styleCode="Bold Nhan ">Immature Medical Granulocyte Center Count </content>0.03 KCUMM<content styleCode="Ital ics"> (0-0.1 KCUMM)</content > UNK < 1 <content [facility] styleCode="Bold Nhan ">Immature Medical Granulocyte Center Ratio </content>0.4 %<content styleCode="Ital ics"> (< 1 %)</content> ID Date Data Source GFR(Creatinine).[id number] 05/10/2019 07:00:00 AM EDT [facility] 0-0400 Name Value Range Interpretation Code Description Data Ashlee rce(s) Supporting Document(s ) UNK > 60 Below low normal <content [facility] styleCode="Bold"> Medical Cent er EGFR </content>52 GFR L<content styleCode="Italic s"> (> 60 GFR)</content> ID Date Data Source Coagulation 05/10/2019 07:00:00 AM [facility] ical [facility] Rout.[id number] EDT Name Value Range Interpretation Description Data Sup porting Code Source(s) Document(s ) UNK 9.0-13.0 Above high normal <content [facility] styleCode="Bold" Nhan >Protime Medical </content>14.2 Center SEC H<content styleCode="Itali cs"> (9.0-13.0 SEC)</content> INR in 0.80-1.2 Above high normal <content [facility] Platelet poor 0 styleCode="Bold" Nhan plasma by >INR Medical Coagulation </content>1.28 # Center assay H<content styleCode="Itali cs"> (0.80-1.20 #)</content> aPTT in 25.1-36. <content [facility] Platelet poor 5 styleCode="Bold" Nhan plasma by >Partial Medical Coagulation Thromboplastin Center assay Time </content>25.3 SEC<content styleCode="Itali cs"> (25.1-36.5 SEC)</content> ID Date Data Source CHMROUTINECCDA.[id number] 05/10/2019 07:00:00 AM EDT [facility] -0400 Name Value Range Interpretation Description Data Sup porting Code Source(s) Document(s ) UNK >= 1.0 Below low normal <content [facility] styleCode="Mike Nhan d">AG Ratio Medical </content>0.9 Center L<content styleCode="Evelyn lics"> (>= 1.0 )</content> Phosphate 2.5-4.5 <content [facility] [Mass/volume] styleCode="Mike Nhan in Serum or d">Phosphorus Medical Plasma </content>4.2 Center MG/DL<content styleCode="Evelyn lics"> (2.5-4.5 MG/DL)</conten t> UNK 2.3-3.5 Above high normal <content [facility] styleCode="Mike Nhan d">Globulin Medical </content>3.8 Center G/DL H<content styleCode="Evelyn lics"> (2.3-3.5 G/DL)</content > Magnesium 1.6-2.3 <content [facility] [Mass/volume] styleCode="Mike Nhan in Serum or d">Magnesium Medical Plasma </content>1.8 Center MG/DL<content styleCode="Evelyn lics"> (1.6-2.3 MG/DL)</conten t> Protein 6.3-8.2 <content [facility] [Mass/volume] styleCode="Mike Nhan in Serum or d">Total Medical Plasma Protein Center </content>7.2 G/DL<content styleCode="Evelyn lics"> (6.3-8.2 G/DL)</content > ID Date Data Source [facility].[id number] 05/10/2019 07:00:00 AM EDT [facility] Name Value Range Interpretation Description Data Sup porting Code Source(s) Document(s ) Chloride 98-107 <content [facility] [Moles/volume] in styleCode="Bold"> [facility] Serum or Plasma Chloride Medical </content>99 Center MEQ/L<content styleCode="Italic s"> (98-107 MEQ/L)</content> Potassium 3.5-5.3 <content [facility] [Moles/volume] in styleCode="Bold"> [facility] Serum or Plasma Potassium Medical </content>3.6 Center MEQ/L<content styleCode="Italic s"> (3.5-5.3 MEQ/L)</content> Sodium 137-145 Above high <content [facility] [Moles/volume] in normal styleCode="Bold"> [facility] Serum or Plasma Sodium Medical </content>146 Center MEQ/L H<content styleCode="Italic s"> (137-145 MEQ/L)</content> UNK 7-17 Above high <content [facility] normal styleCode="Bold"> [facility] BUN </content>20 Medical MG/DL H<content Center styleCode="Italic s"> (7-17 MG/DL)</content> Glucose 74-106 <content [facility] [Mass/volume] in styleCode="Bold"> [facility] Serum or Plasma Glucose Medical </content>98 Center MG/DL<content styleCode="Italic s"> (74-106 MG/DL)</content> Creatinine 0.5-1.3 <content [facility] [Mass/volume] in styleCode="Bold"> [facility] Serum or Plasma Creatinine Medical </content>1.3 Center MG/DL<content styleCode="Italic s"> (0.5-1.3 MG/DL)</content> Carbon dioxide, 22-30 Above high <content [facility] total normal styleCode="Bold"> [facility] [Moles/volume] in Carbon Dioxide Medical Serum or Plasma </content>35 Center MEQ/L H<content styleCode="Italic s"> (22-30 MEQ/L)</content> Aspartate 14-36 <content [facility] aminotransferase styleCode="Bold"> [facility] [Enzymatic Aspartate Medical activity/volume] Aminotransferase Center in Serum or Plasma (AST) </content>26 IU/L<content styleCode="Italic s"> (14-36 IU/L)</content> Alanine 7-30 <content [facility] aminotransferase styleCode="Bold"> [facility] [Enzymatic Alanine Medical activity/volume] Aminotransferase Center in Serum or Plasma (ALT) </content>24 IU/L<content styleCode="Italic s"> (7-30 IU/L)</content> UNK > 60 Below low <content [facility] normal styleCode="Bold"> [facility] EGFR </content>52 Medical GFR L<content Center styleCode="Italic s"> (> 60 GFR)</content> Calcium 8.4-10. <content [facility] [Mass/volume] in 2 styleCode="Bold"> [facility] Serum or Plasma Calcium Medical </content>9.6 Center MG/DL<content styleCode="Italic s"> (8.4-10.2 MG/DL)</content> Bilirubin.total 0.2-1.3 <content [facility] [Mass/volume] in styleCode="Bold"> [facility] Serum or Plasma Bilirubin Total Medical </content>1.3 Center MG/DL<content styleCode="Italic s"> (0.2-1.3 MG/DL)</content> Alkaline 38-126 <content [facility] phosphatase styleCode="Bold"> [facility] [Enzymatic Alkaline Medical activity/volume] Phosphatase (ALP) Cente r in Serum or Plasma </content>107 IU/L<content styleCode="Italic s"> (38-126 IU/L)</content> Albumin 3.5-5.0 Below low <content [facility] [Mass/volume] in normal styleCode="Bold"> [facility] Serum or Plasma Albumin Medical </content>3.4 Center G/DL L<content styleCode="Italic s"> (3.5-5.0 G/DL)</content> ID Date Data Source Liver 05/09/2019 05:15:00 AM EDT [facility] Profile.[id number] Name Value Range Interpretation Description Data Sup porting Code Source(s) Document(s ) Aspartate 14-36 <content [facility] aminotransferase styleCode="Bold"> [facility] [Enzymatic Aspartate Medical activity/volume] Aminotransferase Center in Serum or Plasma (AST) </content>26 IU/L<content styleCode="Italic s"> (14-36 IU/L)</content> Alkaline 38-126 <content [facility] phosphatase styleCode="Bold"> [facility] [Enzymatic Alkaline Medical activity/volume] Phosphatase (ALP) Cente r in Serum or Plasma </content>88 IU/L<content styleCode="Italic s"> (38-126 IU/L)</content> Alanine 7-30 <content [facility] aminotransferase styleCode="Bold"> [facility] [Enzymatic Alanine Medical activity/volume] Aminotransferase Center in Serum or Plasma (ALT) </content>22 IU/L<content styleCode="Italic s"> (7-30 IU/L)</content> Bilirubin.total 0.2-1.3 <content [facility] [Mass/volume] in styleCode="Bold"> [facility] Serum or Plasma Bilirubin Total Medical </content>1.0 Center MG/DL<content styleCode="Italic s"> (0.2-1.3 MG/DL)</content> Albumin 3.5-5.0 Below low <content [facility] [Mass/volume] in normal styleCode="Bold"> [facility] Serum or Plasma Albumin Medical </content>2.9 Center G/DL L<content styleCode="Italic s"> (3.5-5.0 G/DL)</content> ID Date Data Source HematologyRou.[id number] 05/09/2019 05:15:00 AM EDT Fernando [facility] 0400 Name Value Range Interpretation Description Data Sup porting Code Source(s) Document(s ) Leukocytes 4.4-11.0 <content [facility] [#/volume] in styleCode="Bold Nhan Blood by ">White Blood Medical Automated count Cell Count Center </content>6.39 KCUMM<content styleCode="Ital ics"> (4.4-11.0 KCUMM)</content > Erythrocytes 4.0-5.1 Below low normal <content [facility] [#/volume] in styleCode="Bold Nhan Blood by ">Red Blood Medical Automated count Cell Count Center </content>3.04 MCUMM L<content styleCode="Ital ics"> (4.0-5.1 MCUMM)</content > Hematocrit 36.0-46. Below low normal <content [facility] [Volume 0 styleCode="Bold [facility] Fraction] of ">Hematocrit Medical Blood by </content>25.2 Center Automated count % L<content styleCode="Ital ics"> (36.0-46.0 %)</content> Hemoglobin 12.3-16. Below low normal <content [facility] [Mass/volume] in 0 styleCode="Bold Nhan Blood ">Hemoglobin Medical </content>7.6 Center G/DL L<content styleCode="Ital ics"> (12.3-16.0 G/DL)</content> Erythrocyte mean 80.0-100 <content [facility] corpuscular .0 styleCode="Bold Nhan volume [Entitic ">Mean Medical volume] by Corpuscular Center Automated count Volume </content>82.9 FL<content styleCode="Ital ics"> (80.0-100.0 FL)</content> Erythrocyte mean 32.0-37. Below low normal <content [facility] corpuscular 0 styleCode="Bold Nhan hemoglobin ">Mean Corpus. Medical concentration Hgb Center [Mass/volume] by Concentration Automated count (MCHC) </content>30.2 G/DL L<content styleCode="Ital ics"> (32.0-37.0 G/DL)</content> Erythrocyte mean 26.0-34. Below low normal <content [facility] corpuscular 0 styleCode="Bold Nhan hemoglobin ">Mean Medical [Entitic mass] Corposcular Center by Automated Hemoglobin count </content>25.0 PG L<content styleCode="Ital ics"> (26.0-34.0 PG)</content> Erythrocyte 11.5-14. Above high <content [facility] distribution 5 normal styleCode="Bold Nhan width [Ratio] by ">Red Cell Medical Automated count Distribution Center Width </content>20.0 % H<content styleCode="Ital ics"> (11.5-14.5 %)</content> Platelet mean 8.0-11.0 <content [facility] volume [Entitic styleCode="Bold Nhan volume] in Blood ">Mean Platelet Medical by Automated Volume Center count </content>10.9 FL<content styleCode="Ital ics"> (8.0-11.0 FL)</content> Platelets 130-400 <content [facility] [#/volume] in styleCode="Bold Nhan Blood by ">Platelet Medical Automated count Count Center </content>311 KCUMM<content styleCode="Ital ics"> (130-400 KCUMM)</content > Neutrophils 36-66 Above high <content [facility] [#/volume] in normal styleCode="Bold Nhan Blood by ">Neutrophil Medical Automated count </content>66.3 Center % H<content styleCode="Ital ics"> (36-66 %)</content> UNK 1.6-7.3 <content [facility] styleCode="Bold Nhan ">Neutrophil Medical Count Center </content>4.24 KCUMM<content styleCode="Ital ics"> (1.6-7.3 KCUMM)</content > Lymphocytes 24.0-44. Below low normal <content [facility] [#/volume] in 0 styleCode="Bold Nhan Blood by ">Lymphocyte Medical Automated count </content>18.8 Center % L<content styleCode="Ital ics"> (24.0-44.0 %)</content> UNK 1.0-4.8 <content [facility] styleCode="Bold Nhan ">Lymphocyte Medical Count Center </content>1.20 KCUMM<content styleCode="Ital ics"> (1.0-4.8 KCUMM)</content > Monocytes 3.0-10.0 <content [facility] [#/volume] in styleCode="Bold Nhan Blood by ">Monocyte Medical Automated count </content>9.7 Center %<content styleCode="Ital ics"> (3.0-10.0 %)</content> UNK 0.2-0.9 <content [facility] styleCode="Bold Nhan ">Monocyte Medical Count Center </content>0.62 KCUMM<content styleCode="Ital ics"> (0.2-0.9 KCUMM)</content > Eosinophils 0-5.0 <content [facility] [#/volume] in styleCode="Bold Nhan Blood by ">Eosinophil Medical Automated count </content>3.9 Center %<content styleCode="Ital ics"> (0-5.0 %)</content> UNK 0.0-0.3 <content [facility] styleCode="Bold Nhan ">Basophil Medical Count Center </content>0.03 KCUMM<content styleCode="Ital ics"> (0.0-0.3 KCUMM)</content > UNK 0.0-0.6 <content [facility] styleCode="Bold Nhan ">Eosinophil Medical Count Center </content>0.25 KCUMM<content styleCode="Ital ics"> (0.0-0.6 KCUMM)</content > Basophils 0.0-1.0 <content [facility] [#/volume] in styleCode="Bold Nhan Blood by ">Basophil Medical Automated count </content>0.5 Center %<content styleCode="Ital ics"> (0.0-1.0 %)</content> UNK 0-0.1 <content [facility] styleCode="Bold Nhan ">Immature Medical Granulocyte Center Count </content>0.05 KCUMM<content styleCode="Ital ics"> (0-0.1 KCUMM)</content > UNK 0.0 <content [facility] styleCode="Bold Nhan ">Nucleated Red Medical Blood Cell Center Count </content>0.00 KCUMM<content styleCode="Ital ics"> (0.0 KCUMM)</content > UNK 0 <content [facility] styleCode="Bold Nhan ">Nucleated Red Medical Blood Cell Center </content>0.0 /100<content styleCode="Ital ics"> (0 /100)</content> UNK < 1 <content [facility] styleCode="Bold Nhan ">Immature Medical Granulocyte Center Ratio </content>0.8 %<content styleCode="Ital ics"> (< 1 %)</content> ID Date Data Source GFR(Creatinine).[id number] 05/09/2019 05:15:00 AM EDT [facility] 0-0400 Name Value Range Interpretation Code Description Data Ashlee rce(s) Supporting Document(s ) UNK > 60 Below low normal <content [facility] styleCode="Bold"> Medical Cent er EGFR </content>52 GFR L<content styleCode="Italic s"> (> 60 GFR)</content> ID Date Data Source CHMROUTINECCDA.[id number] 05/09/2019 05:15:00 AM EDT [facility] -0400 Name Value Range Interpretation Description Data Sup porting Code Source(s) Document(s ) UNK 2.3-3.5 <content [facility] styleCode="Mike Nhan d">Globulin Medical </content>3.3 Center G/DL<content styleCode="Evelyn lics"> (2.3-3.5 G/DL)</content > Magnesium 1.6-2.3 <content [facility] [Mass/volume] styleCode="Mike Nhan in Serum or d">Magnesium Medical Plasma </content>1.6 Center MG/DL<content styleCode="Evelyn lics"> (1.6-2.3 MG/DL)</conten t> UNK >= 1.0 Below low normal <content [facility] styleCode="Mike Nhan d">AG Ratio Medical </content>0.9 Center L<content styleCode="Evelyn lics"> (>= 1.0 )</content> Phosphate 2.5-4.5 <content [facility] [Mass/volume] styleCode="Mike Nhan in Serum or d">Phosphorus Medical Plasma </content>4.1 Center MG/DL<content styleCode="Evelyn lics"> (2.5-4.5 MG/DL)</conten t> Protein 6.3-8.2 Below low normal <content [facility] [Mass/volume] styleCode="Mike Nhan in Serum or d">Total Medical Plasma Protein Center </content>6.2 G/DL L<content styleCode="Evelyn lics"> (6.3-8.2 G/DL)</content > ID Date Data Source [facility].[id number] 05/09/2019 05:15:00 AM EDT [facility] Name Value Range Interpretation Description Data Sup porting Code Source(s) Document(s ) Potassium 3.5-5.3 Below low <content [facility] [Moles/volume] in normal styleCode="Bold"> [facility] Serum or Plasma Potassium Medical </content>3.3 Center MEQ/L L<content styleCode="Italic s"> (3.5-5.3 MEQ/L)</content> Sodium 137-145 <content [facility] [Moles/volume] in styleCode="Bold"> [facility] Serum or Plasma Sodium Medical </content>143 Center MEQ/L<content styleCode="Italic s"> (137-145 MEQ/L)</content> Chloride 98-107 <content [facility] [Moles/volume] in styleCode="Bold"> [facility] Serum or Plasma Chloride Medical </content>100 Center MEQ/L<content styleCode="Italic s"> (98-107 MEQ/L)</content> UNK 7-17 Above high <content [facility] normal styleCode="Bold"> Nhan BUN </content>24 Medical MG/DL H<content Center styleCode="Italic s"> (7-17 MG/DL)</content> Glucose 74-106 <content [facility] [Mass/volume] in styleCode="Bold"> [facility] Serum or Plasma Glucose Medical </content>91 Center MG/DL<content styleCode="Italic s"> (74-106 MG/DL)</content> Carbon dioxide, 22-30 Above high <content [facility] total normal styleCode="Bold"> Nhan [Moles/volume] in Carbon Dioxide Medical Serum or Plasma </content>34 Center MEQ/L H<content styleCode="Italic s"> (22-30 MEQ/L)</content> Creatinine 0.5-1.3 <content [facility] [Mass/volume] in styleCode="Bold"> [facility] Serum or Plasma Creatinine Medical </content>1.3 Center MG/DL<content styleCode="Italic s"> (0.5-1.3 MG/DL)</content> Aspartate 14-36 <content [facility] aminotransferase styleCode="Bold"> [facility] [Enzymatic Aspartate Medical activity/volume] Aminotransferase Center in Serum or Plasma (AST) </content>26 IU/L<content styleCode="Italic s"> (14-36 IU/L)</content> Alanine 7-30 <content [facility] aminotransferase styleCode="Bold"> [facility] [Enzymatic Alanine Medical activity/volume] Aminotransferase Center in Serum or Plasma (ALT) </content>22 IU/L<content styleCode="Italic s"> (7-30 IU/L)</content> Calcium 8.4-10. <content [facility] [Mass/volume] in 2 styleCode="Bold"> [facility] Serum or Plasma Calcium Medical </content>9.0 Center MG/DL<content styleCode="Italic s"> (8.4-10.2 MG/DL)</content> UNK > 60 Below low <content [facility] normal styleCode="Bold"> Nhan EGFR </content>52 Medical GFR L<content Center styleCode="Italic s"> (> 60 GFR)</content> Alkaline 38-126 <content [facility] phosphatase styleCode="Bold"> [facility]han [Enzymatic Alkaline Medical activity/volume] Phosphatase (ALP) Cente r in Serum or Plasma </content>88 IU/L<content styleCode="Italic s"> (38-126 IU/L)</content> Bilirubin.total 0.2-1.3 <content [facility] [Mass/volume] in styleCode="Bold"> [facility] Serum or Plasma Bilirubin Total Medical </content>1.0 Center MG/DL<content styleCode="Italic s"> (0.2-1.3 MG/DL)</content> Albumin 3.5-5.0 Below low <content [facility] [Mass/volume] in normal styleCode="Bold"> [facility] hs Serum or Plasma Albumin Medical </content>2.9 Center G/DL L<content styleCode="Italic s"> (3.5-5.0 G/DL)</content> ID Date Data Source Liver 05/08/2019 05:47:00 AM EDT [facility] Profile.[id number] Name Value Range Interpretation Description Data Sup porting Code Source(s) Document(s ) Aspartate 14-36 <content [facility] aminotransferase styleCode="Bold"> [facility] [Enzymatic Aspartate Medical activity/volume] Aminotransferase Center in Serum or Plasma (AST) </content>29 IU/L<content styleCode="Italic s"> (14-36 IU/L)</content> Bilirubin.total 0.2-1.3 Above high <content [facility] [Mass/volume] in normal styleCode="Bold"> [facility] hs Serum or Plasma Bilirubin Total Medical </content>1.4 Center MG/DL H<content styleCode="Italic s"> (0.2-1.3 MG/DL)</content> Alanine 7-30 <content [facility] aminotransferase styleCode="Bold"> [facility] [Enzymatic Alanine Medical activity/volume] Aminotransferase Center in Serum or Plasma (ALT) </content>24 IU/L<content styleCode="Italic s"> (7-30 IU/L)</content> Alkaline 38-126 <content [facility] phosphatase styleCode="Bold"> [facility] [Enzymatic Alkaline Medical activity/volume] Phosphatase (ALP) Cente r in Serum or Plasma </content>105 IU/L<content styleCode="Italic s"> (38-126 IU/L)</content> Albumin 3.5-5.0 Below low <content [facility] [Mass/volume] in normal styleCode="Bold"> Charly hs Serum or Plasma Albumin Medical </content>3.3 Center G/DL L<content styleCode="Italic s"> (3.5-5.0 G/DL)</content> ID Date Data Source HematologyRou.[id number] 05/08/2019 05:47:00 AM [facility] 0400 Name Value Range Interpretation Description Data Sup porting Code Source(s) Document(s ) Erythrocytes 4.0-5.1 Below low normal <content [facility] [#/volume] in styleCode="Bold Nhan Blood by ">Red Blood Medical Automated count Cell Count Center </content>3.11 MCUMM L<content styleCode="Ital ics"> (4.0-5.1 MCUMM)</content > Hemoglobin 12.3-16. Below low normal <content [facility] [Mass/volume] in 0 styleCode="Bold Nhan Blood ">Hemoglobin Medical </content>7.9 Center G/DL L<content styleCode="Ital ics"> (12.3-16.0 G/DL)</content> Leukocytes 4.4-11.0 <content [facility] [#/volume] in styleCode="Bold Nhan Blood by ">White Blood Medical Automated count Cell Count Center </content>7.64 KCUMM<content styleCode="Ital ics"> (4.4-11.0 KCUMM)</content > Erythrocyte mean 26.0-34. Below low normal <content [facility] corpuscular 0 styleCode="Bold Nhan hemoglobin ">Mean Medical [Entitic mass] Corposcular Center by Automated Hemoglobin count </content>25.4 PG L<content styleCode="Ital ics"> (26.0-34.0 PG)</content> Erythrocyte mean 80.0-100 <content [facility] corpuscular .0 styleCode="Bold Nhan volume [Entitic ">Mean Medical volume] by Corpuscular Center Automated count Volume </content>83.9 FL<content styleCode="Ital ics"> (80.0-100.0 FL)</content> Hematocrit 36.0-46. Below low normal <content [facility] [Volume 0 styleCode="Bold Nhan Fraction] of ">Hematocrit Medical Blood by </content>26.1 Center Automated count % L<content styleCode="Ital ics"> (36.0-46.0 %)</content> Erythrocyte mean 32.0-37. Below low normal <content [facility] corpuscular 0 styleCode="Bold Nhan hemoglobin ">Mean Corpus. Medical concentration Hgb Center [Mass/volume] by Concentration Automated count (MCHC) </content>30.3 G/DL L<content styleCode="Ital ics"> (32.0-37.0 G/DL)</content> Erythrocyte 11.5-14. Above high <content [facility] distribution 5 normal styleCode="Bold Nhan width [Ratio] by ">Red Cell Medical Automated count Distribution Center Width </content>19.6 % H<content styleCode="Ital ics"> (11.5-14.5 %)</content> Platelets 130-400 <content [facility] [#/volume] in styleCode="Bold Nhan Blood by ">Platelet Medical Automated count Count Center </content>300 KCUMM<content styleCode="Ital ics"> (130-400 KCUMM)</content > Platelet mean 8.0-11.0 <content [facility] volume [Entitic styleCode="Bold Nhan volume] in Blood ">Mean Platelet Medical by Automated Volume Center count </content>10.3 FL<content styleCode="Ital ics"> (8.0-11.0 FL)</content> UNK 1.6-7.3 <content Saint styleCode="Bold Nhan ">Neutrophil Medical Count Center </content>5.40 KCUMM<content styleCode="Ital ics"> (1.6-7.3 KCUMM)</content > Neutrophils 36-66 Above high <content [facility] [#/volume] in normal styleCode="Bold Nhan Blood by ">Neutrophil Medical Automated count </content>70.7 Center % H<content styleCode="Ital ics"> (36-66 %)</content> Lymphocytes 24.0-44. Below low normal <content [facility] [#/volume] in 0 styleCode="Bold Nhan Blood by ">Lymphocyte Medical Automated count </content>15.7 Center % L<content styleCode="Ital ics"> (24.0-44.0 %)</content> Monocytes 3.0-10.0 <content [facility] [#/volume] in styleCode="Bold Nhan Blood by ">Monocyte Medical Automated count </content>8.2 Center %<content styleCode="Ital ics"> (3.0-10.0 %)</content> UNK 1.0-4.8 <content [facility] styleCode="Bold Nhan ">Lymphocyte Medical Count Center </content>1.20 KCUMM<content styleCode="Ital ics"> (1.0-4.8 KCUMM)</content > UNK 0.2-0.9 <content [facility] styleCode="Bold Nhan ">Monocyte Medical Count Center </content>0.63 KCUMM<content styleCode="Ital ics"> (0.2-0.9 KCUMM)</content > Eosinophils 0-5.0 <content [facility] [#/volume] in styleCode="Bold Nhan Blood by ">Eosinophil Medical Automated count </content>4.3 Center %<content styleCode="Ital ics"> (0-5.0 %)</content> UNK 0.0-0.6 <content [facility] styleCode="Bold Nhan ">Eosinophil Medical Count Center </content>0.33 KCUMM<content styleCode="Ital ics"> (0.0-0.6 KCUMM)</content > UNK 0.0-0.3 <content [facility] styleCode="Bold Nhan ">Basophil Medical Count Center </content>0.03 KCUMM<content styleCode="Ital ics"> (0.0-0.3 KCUMM)</content > Basophils 0.0-1.0 <content Saint [#/volume] in styleCode="Bold [facility] Blood by ">Basophil Medical Automated count </content>0.4 Center %<content styleCode="Ital ics"> (0.0-1.0 %)</content> UNK 0 Above high <content [facility] normal styleCode="Bold Nhan ">Nucleated Red Medical Blood Cell Center </content>0.3 /100 H<content styleCode="Ital ics"> (0 /100)</content> UNK 0.0 Above high <content [facility] normal styleCode="Bold Nhan ">Nucleated Red Medical Blood Cell Center Count </content>0.02 KCUMM H<content styleCode="Ital ics"> (0.0 KCUMM)</content > UNK 0-0.1 <content [facility] styleCode="Bold Nhan ">Immature Medical Granulocyte Center Count </content>0.05 KCUMM<content styleCode="Ital ics"> (0-0.1 KCUMM)</content > UNK < 1 <content Saint styleCode="Bold Nhan ">Immature Medical Granulocyte Center Ratio </content>0.7 %<content styleCode="Ital ics"> (< 1 %)</content> ID Date Data Source GFR(Creatinine).[id number] 05/08/2019 05:47:00 AM EDT [facility] 0-0400 Name Value Range Interpretation Code Description Data Ashlee rce(s) Supporting Document(s ) UNK > 60 Below low normal <content [facility] styleCode="Bold"> Medical Cent er EGFR </content>48 GFR L<content styleCode="Italic s"> (> 60 GFR)</content> ID Date Data Source MOI.[id number] 05/08/2019 05:47:00 AM EDT [facility] -0400 Name Value Range Interpretation Description Data Sup porting Code Source(s) Document(s ) UNK >= 1.0 <content Saint styleCode="Mike Nhan d">AG Ratio Medical </content>1.0 Center <content styleCode="Evelyn lics"> (>= 1.0 )</content> Magnesium 1.6-2.3 Below low normal <content [facility] [Mass/volume] styleCode="Mike Nhan in Serum or d">Magnesium Medical Plasma </content>1.5 Center MG/DL L<content styleCode="Evelyn lics"> (1.6-2.3 MG/DL)</conten t> UNK 2.3-3.5 <content [facility] styleCode="Mike Nhan d">Globulin Medical </content>3.4 Center G/DL<content styleCode="Evelyn lics"> (2.3-3.5 G/DL)</content > Phosphate 2.5-4.5 <content [facility] [Mass/volume] styleCode="Mike Nhan in Serum or d">Phosphorus Medical Plasma </content>4.0 Center MG/DL<content styleCode="Evelyn lics"> (2.5-4.5 MG/DL)</conten t> Protein 6.3-8.2 <content [facility] [Mass/volume] styleCode="Mike Nhan in Serum or d">Total Medical Plasma Protein Center </content>6.7 G/DL<content styleCode="Evelyn lics"> (6.3-8.2 G/DL)</content > ID Date Data Source [facility].[id number] 05/08/2019 05:47:00 AM EDT [facility] Name Value Range Interpretation Description Data Sup porting Code Source(s) Document(s ) Carbon dioxide, 22-30 Above high <content [facility] total normal styleCode="Bold"> Nhan [Moles/volume] in Carbon Dioxide Medical Serum or Plasma </content>35 Center MEQ/L H<content styleCode="Italic s"> (22-30 MEQ/L)</content> Chloride 98-107 <content [facility] [Moles/volume] in styleCode="Bold"> [facility] Serum or Plasma Chloride Medical </content>99 Center MEQ/L<content styleCode="Italic s"> (98-107 MEQ/L)</content> Potassium 3.5-5.3 <content [facility] [Moles/volume] in styleCode="Bold"> [facility] Serum or Plasma Potassium Medical </content>3.5 Center MEQ/L<content styleCode="Italic s"> (3.5-5.3 MEQ/L)</content> Sodium 137-145 <content [facility] [Moles/volume] in styleCode="Bold"> [facility] Serum or Plasma Sodium Medical </content>143 Center MEQ/L<content styleCode="Italic s"> (137-145 MEQ/L)</content> UNK 7-17 Above high <content [facility] normal styleCode="Bold"> Nhan BUN </content>27 Medical MG/DL H<content Center styleCode="Italic s"> (7-17 MG/DL)</content> Glucose 74-106 <content [facility] [Mass/volume] in styleCode="Bold"> Charly hs Serum or Plasma Glucose Medical </content>91 Center MG/DL<content styleCode="Italic s"> (74-106 MG/DL)</content> Calcium 8.4-10. <content [facility] [Mass/volume] in 2 styleCode="Bold"> Charly hs Serum or Plasma Calcium Medical </content>9.5 Center MG/DL<content styleCode="Italic s"> (8.4-10.2 MG/DL)</content> Creatinine 0.5-1.3 Above high <content [facility] [Mass/volume] in normal styleCode="Bold"> Charly hs Serum or Plasma Creatinine Medical </content>1.4 Center MG/DL H<content styleCode="Italic s"> (0.5-1.3 MG/DL)</content> Alanine 7-30 <content [facility] aminotransferase styleCode="Bold"> Charly hs [Enzymatic Alanine Medical activity/volume] Aminotransferase Center in Serum or Plasma (ALT) </content>24 IU/L<content styleCode="Italic s"> (7-30 IU/L)</content> Aspartate 14-36 <content [facility] aminotransferase styleCode="Bold"> Charly hs [Enzymatic Aspartate Medical activity/volume] Aminotransferase Center in Serum or Plasma (AST) </content>29 IU/L<content styleCode="Italic s"> (14-36 IU/L)</content> UNK > 60 Below low <content [facility] normal styleCode="Bold"> [facility] EGFR </content>48 Medical GFR L<content Center styleCode="Italic s"> (> 60 GFR)</content> Alkaline 38-126 <content [facility] phosphatase styleCode="Bold"> [facility] [Enzymatic Alkaline Medical activity/volume] Phosphatase (ALP) Cente r in Serum or Plasma </content>105 IU/L<content styleCode="Italic s"> (38-126 IU/L)</content> Bilirubin.total 0.2-1.3 Above high <content [facility] [Mass/volume] in normal styleCode="Bold"> Charly hs Serum or Plasma Bilirubin Total Medical </content>1.4 Center MG/DL H<content styleCode="Italic s"> (0.2-1.3 MG/DL)</content> Albumin 3.5-5.0 Below low <content [facility] [Mass/volume] in normal styleCode="Bold"> Charly hs Serum or Plasma Albumin Medical </content>3.3 Center G/DL L<content styleCode="Italic s"> (3.5-5.0 G/DL)</content> ID Date Data [id number] 05/07/2019 06:00:00 AM EDT [facility] Center Name Value Range Interpretation Code Description Data Ashlee rce(s) Supporting Document(s ) UNK <content [facility] styleCode="Bold"> Medical Cent er Packed Red Blood Cells </content>Transfu sed 1 unit. (Reference Range: not available)
ID Date Data Source Coagulation 05/06/2019 05:15:00 AM [facility] Rout.[id number] EDT Name Value Range Interpretation Description Data Sup porting Code Source(s) Document(s ) UNK 9.0-13.0 Above high normal <content Saint styleCode="Bold" Nhan >Protime Medical </content>14.8 Center SEC H<content styleCode="Itali cs"> (9.0-13.0 SEC)</content> aPTT in 25.1-36. Below low normal <content [facility] Platelet poor 5 styleCode="Bold" Nhan plasma by >Partial Medical Coagulation Thromboplastin Center assay Time </content>21.4 SEC L<content styleCode="Itali cs"> (25.1-36.5 SEC)</content> INR in 0.80-1.2 Above high normal <content [facility] Platelet poor 0 styleCode="Bold" Nhan plasma by >INR Medical Coagulation </content>1.33 # Center assay H<content styleCode="Itali cs"> (0.80-1.20 #)</content> ID Date Data Source [facility].[id number] 05/05/2019 12:49:00 PM EDT [facility] Name Value Range Interpretation Code Description Data Ashlee rce(s) Supporting Document(s ) UNK <content [facility] styleCode="Bold"> Medical Cent er Packed Red Blood Cells </content>Transfu sed 1 unit. (Reference Range: not available)
ID Date Data Source Hormones.[id number] 05/05/2019 05:40:00 AM EDT [facility] Name Value Range Interpretation Description Data Sup porting Code Source(s) Document(s ) Thyrotropin 0.465-4. <content [facility] [Units/volume] 68 styleCode="Mike Nhan in Serum or d">Thyroid Medical Plasma by Stimulating Center Detection Hormone limit <= 0.05 </content>0.85 mIU/L 4 MIU/L<content styleCode="Evelyn lics"> (0.465-4.68 MIU/L)</conten t> ID Date Data Source Coagulation 05/05/2019 05:40:00 AM [facility] Rout.[id number] EDT Name Value Range Interpretation Description Data Sup porting Code Source(s) Document(s ) UNK 9.0-13.0 Above high normal <content Saint styleCode="Bold" Nhan >Protime Medical </content>13.6 Center SEC H<content styleCode="Itali cs"> (9.0-13.0 SEC)</content> aPTT in 25.1-36. Below low normal <content [facility] Platelet poor 5 styleCode="Bold" [facility] plasma by >Partial Medical Coagulation Thromboplastin Center assay Time </content>25.0 SEC L<content styleCode="Itali cs"> (25.1-36.5 SEC)</content> INR in 0.80-1.2 Above high normal <content [facility] Platelet poor 0 styleCode="Bold" [facility] plasma by >INR Medical Coagulation </content>1.23 # Center assay H<content styleCode="Itali cs"> (0.80-1.20 #)</content> ID Date Data Source [facility].[id number] 05/04/2019 03:42:00 PM EDT [facility] Name Value Range Interpretation Code Description Data Ashlee rce(s) Supporting Document(s ) UNK <content [facility] styleCode="Bold"> Medical Cent er Packed Red Blood Cells </content>Transfu sed 1 unit. (Reference Range: not available)
ID Date Data Source Coagulation 05/04/2019 07:40:00 AM [facility] Rout.[id number] EDT Name Value Range Interpretation Description Data Sup porting Code Source(s) Document(s ) UNK 9.0-13.0 <content Saint styleCode="Bold" Nhan >Protime Medical </content>13.0 Center SEC<content styleCode="Itali cs"> (9.0-13.0 SEC)</content> INR in 0.80-1.2 <content [facility] Platelet poor 0 styleCode="Bold" Nhan plasma by >INR Medical Coagulation </content>1.17 Center assay #<content styleCode="Itali cs"> (0.80-1.20 #)</content> aPTT in 25.1-36. Below low normal <content [facility] Platelet poor 5 styleCode="Bold" Nhan plasma by >Partial Medical Coagulation Thromboplastin Center assay Time </content>23.8 SEC L<content styleCode="Itali cs"> (25.1-36.5 SEC)</content> ID Date Data Source Liver 05/04/2019 07:40:00 AM EDT [facility] Profile.[id number] Name Value Range Interpretation Description Data Sup porting Code Source(s) Document(s ) Alanine 7-30 <content [facility] aminotransferase styleCode="Bold"> Charly hs [Enzymatic Alanine Medical activity/volume] Aminotransferase Center in Serum or Plasma (ALT) </content>15 IU/L<content styleCode="Italic s"> (7-30 IU/L)</content> Aspartate 14-36 <content [facility] aminotransferase styleCode="Bold"> Charly hs [Enzymatic Aspartate Medical activity/volume] Aminotransferase Center in Serum or Plasma (AST) </content>23 IU/L<content styleCode="Italic s"> (14-36 IU/L)</content> Bilirubin.total 0.2-1.3 <content [facility] [Mass/volume] in styleCode="Bold"> Charly hs Serum or Plasma Bilirubin Total Medical </content>1.1 Center MG/DL<content styleCode="Italic s"> (0.2-1.3 MG/DL)</content> Alkaline 38-126 <content [facility] phosphatase styleCode="Bold"> Nhan [Enzymatic Alkaline Medical activity/volume] Phosphatase (ALP) Cente r in Serum or Plasma </content>104 IU/L<content styleCode="Italic s"> (38-126 IU/L)</content> Albumin 3.5-5.0 Below low <content [facility] [Mass/volume] in normal styleCode="Bold"> Charly hs Serum or Plasma Albumin Medical </content>3.2 Center G/DL L<content styleCode="Italic s"> (3.5-5.0 G/DL)</content> ID Date Data Source HematologyRou.[id number] 05/04/2019 07:40:00 AM EDT [facility] 0400 Name Value Range Interpretation Description Data Sup porting Code Source(s) Document(s ) Hemoglobin 12.3-16. Below lower <content [facility] [Mass/volume] in 0 panic limits styleCode="Bold [facility] Blood ">Hemoglobin Medical </content><cont Center ent styleCode="Bold ">5.6 G/DL LL</content><co ntent styleCode="Ital ics"> (12.3-16.0 G/DL)</content> Leukocytes 4.4-11.0 <content [facility] [#/volume] in styleCode="Bold Nhan Blood by ">White Blood Medical Automated count Cell Count Center </content>7.83 KCUMM<content styleCode="Ital ics"> (4.4-11.0 KCUMM)</content > Erythrocytes 4.0-5.1 Below low normal <content [facility] [#/volume] in styleCode="Bold Nhan Blood by ">Red Blood Medical Automated count Cell Count Center </content>2.35 MCUMM L<content styleCode="Ital ics"> (4.0-5.1 MCUMM)</content > Erythrocyte mean 32.0-37. Below low normal <content [facility] corpuscular 0 styleCode="Bold Nhan hemoglobin ">Mean Corpus. Medical concentration Hgb Center [Mass/volume] by Concentration Automated count (MCHC) </content>29.3 G/DL L<content styleCode="Ital ics"> (32.0-37.0 G/DL)</content> Erythrocyte 11.5-14. Above high <content [facility] distribution 5 normal styleCode="Bold Nhan width [Ratio] by ">Red Cell Medical Automated count Distribution Center Width </content>18.9 % H<content styleCode="Ital ics"> (11.5-14.5 %)</content> Hematocrit 36.0-46. Below lower <content [facility] [Volume 0 panic limits styleCode="Bold Nhan Fraction] of ">Hematocrit Medical Blood by </content><cont Center Automated count ent styleCode="Bold ">19.1 % LL</content><co ntent styleCode="Ital ics"> (36.0-46.0 %)</content> Erythrocyte mean 80.0-100 <content [facility] corpuscular .0 styleCode="Bold Nhan volume [Entitic ">Mean Medical volume] by Corpuscular Center Automated count Volume </content>81.3 FL<content styleCode="Ital ics"> (80.0-100.0 FL)</content> Erythrocyte mean 26.0-34. Below low normal <content [facility] corpuscular 0 styleCode="Bold Nhan hemoglobin ">Mean Medical [Entitic mass] Corposcular Center by Automated Hemoglobin count </content>23.8 PG L<content styleCode="Ital ics"> (26.0-34.0 PG)</content> Platelet mean 8.0-11.0 <content [facility] volume [Entitic styleCode="Bold Nhan volume] in Blood ">Mean Platelet Medical by Automated Volume Center count </content>10.3 FL<content styleCode="Ital ics"> (8.0-11.0 FL)</content> Platelets 130-400 <content [facility] [#/volume] in styleCode="Bold Nhan Blood by ">Platelet Medical Automated count Count Center </content>371 KCUMM<content styleCode="Ital ics"> (130-400 KCUMM)</content > UNK 1.6-7.3 <content [facility] styleCode="Bold Nhan ">Neutrophil Medical Count Center </content>6.25 KCUMM<content styleCode="Ital ics"> (1.6-7.3 KCUMM)</content > Neutrophils 36-66 Above high <content [facility] [#/volume] in normal styleCode="Bold Nhan Blood by ">Neutrophil Medical Automated count </content>79.8 Center % H<content styleCode="Ital ics"> (36-66 %)</content> UNK 1.0-4.8 Below low normal <content [facility] styleCode="Bold Nhan ">Lymphocyte Medical Count Center </content>0.95 KCUMM L<content styleCode="Ital ics"> (1.0-4.8 KCUMM)</content > Lymphocytes 24.0-44. Below low normal <content [facility] [#/volume] in 0 styleCode="Bold Nhan Blood by ">Lymphocyte Medical Automated count </content>12.1 Center % L<content styleCode="Ital ics"> (24.0-44.0 %)</content> Monocytes 3.0-10.0 <content [facility] [#/volume] in styleCode="Bold Nhan Blood by ">Monocyte Medical Automated count </content>5.9 Center %<content styleCode="Ital ics"> (3.0-10.0 %)</content> Eosinophils 0-5.0 <content [facility] [#/volume] in styleCode="Bold Nhan Blood by ">Eosinophil Medical Automated count </content>1.3 Center %<content styleCode="Ital ics"> (0-5.0 %)</content> UNK 0.2-0.9 <content [facility] styleCode="Bold Nhan ">Monocyte Medical Count Center </content>0.46 KCUMM<content styleCode="Ital ics"> (0.2-0.9 KCUMM)</content > UNK 0 Above high <content [facility] normal styleCode="Bold Nhan ">Nucleated Red Medical Blood Cell Center </content>0.9 /100 H<content styleCode="Ital ics"> (0 /100)</content> Basophils 0.0-1.0 <content Saint [#/volume] in styleCode="Bold Nhan Blood by ">Basophil Medical Automated count </content>0.3 Center %<content styleCode="Ital ics"> (0.0-1.0 %)</content> UNK 0.0-0.6 <content [facility] styleCode="Bold Nhan ">Eosinophil Medical Count Center </content>0.10 KCUMM<content styleCode="Ital ics"> (0.0-0.6 KCUMM)</content > UNK 0.0-0.3 <content [facility] styleCode="Bold Nhan ">Basophil Medical Count Center </content>0.02 KCUMM<content styleCode="Ital ics"> (0.0-0.3 KCUMM)</content > UNK 0.0 Above high <content [facility] normal styleCode="Bold Nhan ">Nucleated Red Medical Blood Cell Center Count </content>0.07 KCUMM H<content styleCode="Ital ics"> (0.0 KCUMM)</content > UNK < 1 <content Saint styleCode="Bold Nhan ">Immature Medical Granulocyte Center Ratio </content>0.6 %<content styleCode="Ital ics"> (< 1 %)</content> UNK 0-0.1 <content Saint styleCode="Bold Nhan ">Immature Medical Granulocyte Center Count </content>0.05 KCUMM<content styleCode="Ital ics"> (0-0.1 KCUMM)</content > ID Date Data Source GFR(Creatinine).[id number] 05/04/2019 07:40:00 AM EDT [facility] 0-0400 Name Value Range Interpretation Code Description Data Ashlee rce(s) Supporting Document(s ) UNK > 60 Below low normal <content [facility] Nhan styleCode="Bold"> Medical Cent er EGFR </content>44 GFR L<content styleCode="Italic s"> (> 60 GFR)</content> ID Date Data Source [facility].[id number] 05/04/2019 07:40:00 AM EDT [facility] -0400 Name Value Range Interpretation Description Data Sup porting Code Source(s) Document(s ) UNK 2.3-3.5 <content Saint styleCode="Mike Nhan d">Globulin Medical </content>3.3 Center G/DL<content styleCode="Evelyn lics"> (2.3-3.5 G/DL)</content > UNK >= 1.0 <content Saint styleCode="Mike Aguirres d">AG Ratio Medical </content>1.0 Center <content styleCode="Evelyn lics"> (>= 1.0 )</content> Magnesium 1.6-2.3 <content Saint [Mass/volume] styleCode="Mike Aguirres in Serum or d">Magnesium Medical Plasma </content>1.7 Center MG/DL<content styleCode="Evelyn lics"> (1.6-2.3 MG/DL)</conten t> Protein 6.3-8.2 <content [facility] [Mass/volume] styleCode="Mike Nhan in Serum or d">Total Medical Plasma Protein Center </content>6.5 G/DL<content styleCode="Evelyn lics"> (6.3-8.2 G/DL)</content > Phosphate 2.5-4.5 <content [facility] [Mass/volume] styleCode="Mike Nhan in Serum or d">Phosphorus Medical Plasma </content>3.7 Center MG/DL<content styleCode="Evelyn lics"> (2.5-4.5 MG/DL)</conten t> ID Date Data Source [facility].[id number] 05/04/2019 07:40:00 AM EDT [facility] Name Value Range Interpretation Description Data Sup porting Code Source(s) Document(s ) Potassium 3.5-5.3 Below low <content Saint [Moles/volume] in normal styleCode="Bold"> [facility] Serum or Plasma Potassium Medical </content>3.4 Center MEQ/L L<content styleCode="Italic s"> (3.5-5.3 MEQ/L)</content> Sodium 137-145 <content Saint [Moles/volume] in styleCode="Bold"> [facility] Serum or Plasma Sodium Medical </content>143 Center MEQ/L<content styleCode="Italic s"> (137-145 MEQ/L)</content> Chloride 98-107 <content [facility] [Moles/volume] in styleCode="Bold"> [facility] Serum or Plasma Chloride Medical </content>104 Center MEQ/L<content styleCode="Italic s"> (98-107 MEQ/L)</content> UNK > 60 Below low <content [facility] normal styleCode="Bold"> Nhan EGFR </content>44 Medical GFR L<content Center styleCode="Italic s"> (> 60 GFR)</content> Carbon dioxide, 22-30 <content [facility] total styleCode="Bold"> Nhan [Moles/volume] in Carbon Dioxide Medical Serum or Plasma </content>28 Center MEQ/L<content styleCode="Italic s"> (22-30 MEQ/L)</content> Glucose 74-106 <content [facility] [Mass/volume] in styleCode="Bold"> Charly hs Serum or Plasma Glucose Medical </content>96 Center MG/DL<content styleCode="Italic s"> (74-106 MG/DL)</content> Creatinine 0.5-1.3 Above high <content [facility] [Mass/volume] in normal styleCode="Bold"> Charly hs Serum or Plasma Creatinine Medical </content>1.5 Center MG/DL H<content styleCode="Italic s"> (0.5-1.3 MG/DL)</content> UNK 7-17 Above high <content [facility] normal styleCode="Bold"> Nhan BUN </content>24 Medical MG/DL H<content Center styleCode="Italic s"> (7-17 MG/DL)</content> Calcium 8.4-10. <content [facility] [Mass/volume] in 2 styleCode="Bold"> Charly hs Serum or Plasma Calcium Medical </content>9.1 Center MG/DL<content styleCode="Italic s"> (8.4-10.2 MG/DL)</content> Albumin 3.5-5.0 Below low <content [facility] [Mass/volume] in normal styleCode="Bold"> Charly hs Serum or Plasma Albumin Medical </content>3.2 Center G/DL L<content styleCode="Italic s"> (3.5-5.0 G/DL)</content> Bilirubin.total 0.2-1.3 <content [facility] [Mass/volume] in styleCode="Bold"> Charly hs Serum or Plasma Bilirubin Total Medical </content>1.1 Center MG/DL<content styleCode="Italic s"> (0.2-1.3 MG/DL)</content> Alkaline 38-126 <content [facility] phosphatase styleCode="Bold"> [facility] [Enzymatic Alkaline Medical activity/volume] Phosphatase (ALP) Cente r in Serum or Plasma </content>104 IU/L<content styleCode="Italic s"> (38-126 IU/L)</content> Aspartate 14-36 <content [facility] aminotransferase styleCode="Bold"> [facility] hs [Enzymatic Aspartate Medical activity/volume] Aminotransferase Center in Serum or Plasma (AST) </content>23 IU/L<content styleCode="Italic s"> (14-36 IU/L)</content> Alanine 7-30 <content [facility] aminotransferase styleCode="Bold"> [facility]arly hs [Enzymatic Alanine Medical activity/volume] Aminotransferase Center in Serum or Plasma (ALT) </content>15 IU/L<content styleCode="Italic s"> (7-30 IU/L)</content> ID Date Data Source HematologyRou.[id number] 05/03/2019 11:58:00 PM EDT [facility] 0400 Name Value Range Interpretation Description Data Sup porting Code Source(s) Document(s ) Leukocytes 4.4-11.0 <content [facility] [#/volume] in styleCode="Bold Nhan Blood by ">White Blood Medical Automated count Cell Count Center </content>8.54 KCUMM<content styleCode="Ital ics"> (4.4-11.0 KCUMM)</content > Erythrocyte mean 80.0-100 <content [facility] corpuscular .0 styleCode="Bold Nhan volume [Entitic ">Mean Medical volume] by Corpuscular Center Automated count Volume </content>79.8 FL<content styleCode="Ital ics"> (80.0-100.0 FL)</content> Hematocrit 36.0-46. Below low normal <content [facility] [Volume 0 styleCode="Bold Nhan Fraction] of ">Hematocrit Medical Blood by </content>20.1 Center Automated count % L<content styleCode="Ital ics"> (36.0-46.0 %)</content> Erythrocytes 4.0-5.1 Below low normal <content [facility] [#/volume] in styleCode="Bold Nhan Blood by ">Red Blood Medical Automated count Cell Count Center </content>2.52 MCUMM L<content styleCode="Ital ics"> (4.0-5.1 MCUMM)</content > Hemoglobin 12.3-16. Below lower <content [facility] [Mass/volume] in 0 panic limits styleCode="Bold [facility]s Blood ">Hemoglobin Medical </content><cont Center ent styleCode="Bold ">6.1 G/DL LL</content><co ntent styleCode="Ital ics"> (12.3-16.0 G/DL)</content> Platelets 130-400 <content Saint [#/volume] in styleCode="Bold Nhan Blood by ">Platelet Medical Automated count Count Center </content>367 KCUMM<content styleCode="Ital ics"> (130-400 KCUMM)</content > Erythrocyte mean 26.0-34. Below low normal <content [facility] corpuscular 0 styleCode="Bold Nhan hemoglobin ">Mean Medical [Entitic mass] Corposcular Center by Automated Hemoglobin count </content>24.2 PG L<content styleCode="Ital ics"> (26.0-34.0 PG)</content> Erythrocyte mean 32.0-37. Below low normal <content [facility] corpuscular 0 styleCode="Bold Nhan hemoglobin ">Mean Corpus. Medical concentration Hgb Center [Mass/volume] by Concentration Automated count (MCHC) </content>30.3 G/DL L<content styleCode="Ital ics"> (32.0-37.0 G/DL)</content> Erythrocyte 11.5-14. Above high <content [facility] distribution 5 normal styleCode="Bold Nhan width [Ratio] by ">Red Cell Medical Automated count Distribution Center Width </content>19.1 % H<content styleCode="Ital ics"> (11.5-14.5 %)</content> Platelet mean 8.0-11.0 <content [facility] volume [Entitic styleCode="Bold Nhan volume] in Blood ">Mean Platelet Medical by Automated Volume Center count </content>10.5 FL<content styleCode="Ital ics"> (8.0-11.0 FL)</content> UNK 1.0-4.8 <content [facility] styleCode="Bold Nhan ">Lymphocyte Medical Count Center </content>1.37 KCUMM<content styleCode="Ital ics"> (1.0-4.8 KCUMM)</content > UNK 1.6-7.3 <content [facility] styleCode="Bold Nhan ">Neutrophil Medical Count Center </content>6.48 KCUMM<content styleCode="Ital ics"> (1.6-7.3 KCUMM)</content > Neutrophils 36-66 Above high <content [facility] [#/volume] in normal styleCode="Bold Nhan Blood by ">Neutrophil Medical Automated count </content>75.9 Center % H<content styleCode="Ital ics"> (36-66 %)</content> Lymphocytes 24.0-44. Below low normal <content [facility] [#/volume] in 0 styleCode="Bold Nhan Blood by ">Lymphocyte Medical Automated count </content>16.0 Center % L<content styleCode="Ital ics"> (24.0-44.0 %)</content> Eosinophils 0-5.0 <content Saint [#/volume] in styleCode="Bold Nhan Blood by ">Eosinophil Medical Automated count </content>1.3 Center %<content styleCode="Ital ics"> (0-5.0 %)</content> Basophils 0.0-1.0 <content [facility] [#/volume] in styleCode="Bold Nhan Blood by ">Basophil Medical Automated count </content>0.2 Center %<content styleCode="Ital ics"> (0.0-1.0 %)</content> UNK 0.0-0.6 <content [facility] styleCode="Bold Nhan ">Eosinophil Medical Count Center </content>0.11 KCUMM<content styleCode="Ital ics"> (0.0-0.6 KCUMM)</content > Monocytes 3.0-10.0 <content [facility] [#/volume] in styleCode="Bold Nhan Blood by ">Monocyte Medical Automated count </content>6.0 Center %<content styleCode="Ital ics"> (3.0-10.0 %)</content> UNK 0.2-0.9 <content [facility] styleCode="Bold Nhan ">Monocyte Medical Count Center </content>0.51 KCUMM<content styleCode="Ital ics"> (0.2-0.9 KCUMM)</content > UNK 0.0 Above high <content [facility] normal styleCode="Bold Nhan ">Nucleated Red Medical Blood Cell Center Count </content>0.08 KCUMM H<content styleCode="Ital ics"> (0.0 KCUMM)</content > UNK 0.0-0.3 <content [facility] styleCode="Bold Nhan ">Basophil Medical Count Center </content>0.02 KCUMM<content styleCode="Ital ics"> (0.0-0.3 KCUMM)</content > UNK 0-0.1 <content [facility] styleCode="Bold Nhan ">Immature Medical Granulocyte Center Count </content>0.05 KCUMM<content styleCode="Ital ics"> (0-0.1 KCUMM)</content > UNK 0 Above high <content [facility] normal styleCode="Bold Nhan ">Nucleated Red Medical Blood Cell Center </content>0.9 /100 H<content styleCode="Ital ics"> (0 /100)</content> UNK < 1 <content [facility] styleCode="Bold Nhan ">Immature Medical Granulocyte Center Ratio </content>0.6 %<content styleCode="Ital ics"> (< 1 %)</content> ID Date Data Source GFR(Creatinine).[id number] 05/03/2019 11:58:00 PM EDT [facility] 0-0400 Name Value Range Interpretation Code Description Data Ashlee rce(s) Supporting Document(s ) UNK > 60 Below low normal <content [facility] styleCode="Bold"> Medical Cent er EGFR </content>38 GFR L<content styleCode="Italic s"> (> 60 GFR)</content> ID Date Data Source [facility].[id number] 05/03/2019 11:58:00 PM EDT [facility] Name Value Range Interpretation Description Data Sup porting Code Source(s) Document(s ) Sodium 137-145 <content [facility] [Moles/volume] styleCode="Mike Nhan in Serum or d">Sodium Medical Plasma </content>140 Center MEQ/L<content styleCode="Evelyn lics"> (137-145 MEQ/L)</conten t> Chloride 98-107 <content [facility] [Moles/volume] styleCode="Mike Nhan in Serum or d">Chloride Medical Plasma </content>103 Center MEQ/L<content styleCode="Evelyn lics"> (98-107 MEQ/L)</conten t> Carbon 22-30 <content [facility] dioxide, total styleCode="Mike Nahn [Moles/volume] d">Carbon Medical in Serum or Dioxide Center Plasma </content>29 MEQ/L<content styleCode="Evelyn lics"> (22-30 MEQ/L)</conten t> Potassium 3.5-5.3 Below lower panic <content [facility] [Moles/volume] limits styleCode="Mike Nhan in Serum or d">Potassium Medical Plasma </content><con Center tent styleCode="Mike d">2.8 MEQ/L LL</content><c ontent styleCode="Evelyn lics"> (3.5-5.3 MEQ/L)</conten t> Creatinine 0.5-1.3 Above high normal <content [facility] [Mass/volume] styleCode="Mike Nhan in Serum or d">Creatinine Medical Plasma </content>1.7 Center MG/DL H<content styleCode="Evelyn lics"> (0.5-1.3 MG/DL)</conten t> Glucose 74-106 <content [facility] [Mass/volume] styleCode="Mike Aguirres in Serum or d">Glucose Medical Plasma </content>97 Center MG/DL<content styleCode="Evelyn lics"> (74-106 MG/DL)</conten t> UNK > 60 Below low normal <content Saint styleCode="Mike Aguirres d">EGFR Medical </content>38 Center GFR L<content styleCode="Evelyn lics"> (> 60 GFR)</content> Calcium 8.4-10.2 <content [facility] [Mass/volume] styleCode="Mike Aguirres in Serum or d">Calcium Medical Plasma </content>8.9 Center MG/DL<content styleCode="Evelyn lics"> (8.4-10.2 MG/DL)</conten t> UNK 7-17 Above high normal <content [facility] styleCode="Mike Nhan d">BUN Medical </content>24 Center MG/DL H<content styleCode="Evelyn lics"> (7-17 MG/DL)</conten t> ID Date Data Source Urinalysis.[id number] 05/03/2019 05:18:00 PM EDT [facility] 0 Name Value Range Interpretation Description Data Sup porting Code Source(s) Document(s ) UNK CLEAR <content Saint styleCode="Mike Aguirres d">Urine Medical Clarity Center </content>JAY R <content styleCode="Evelyn lics"> (CLEAR )</content> Color of Urine YELLOW <content [facility] styleCode="Mike Aguirres d">Color, Medical Urine Center </content>YELL OW <content styleCode="Evelyn lics"> (YELLOW )</content> Ketones NEGATIVE <content [facility] [Mass/volume] styleCode="Mike Aguirres in Urine by d">Urine Medical Test strip Ketone Center </content>NEGA TIVE MG/DL<content styleCode="Evelyn lics"> (NEGATIVE MG/DL)</conten t> UNK NEGATIVE <content Saint styleCode="Mike Nhan d">Urine Medical Bilirubin Center </content>NEGA TIVE <content styleCode="Evelyn lics"> (NEGATIVE )</content> Glucose NEGATIVE <content [facility] [Mass/volume] styleCode="Mike Aguirres in Urine by d">Urine Medical Test strip Glucose Center </content>NEGA TIVE MG/DL<content styleCode="Evelyn lics"> (NEGATIVE MG/DL)</conten t> Hemoglobin NEGATIVE <content Saint [Presence] in styleCode="Mike Aguirres Urine by Test d">Urine Blood Medical strip </content>NEGA Center TIVE <content styleCode="Evelyn lics"> (NEGATIVE )</content> Specific 1.015-1.02 Below low normal <content [facility] gravity of 5 styleCode="Mike Aguirres Urine by Test d">Urine Medical strip Specific Center [place] </content><= 1.005 L<content styleCode="Evelyn lics"> (1.015-1.025 )</content> Protein NEGATIVE <content [facility] [Mass/volume] styleCode="Mike Nhan in Urine by d">Urine Medical Test strip Protein Center </content>NEGA TIVE MG/DL<content styleCode="Evelyn lics"> (NEGATIVE MG/DL)</conten t> pH of Urine by 4.5-8.0 <content [facility] Test strip styleCode="Mike Nhan d">Urine pH Medical </content>6.5 Center <content styleCode="Evelyn lics"> (4.5-8.0 )</content> Urobilinogen 0.2-1.0 <content [facility] [Units/volume] styleCode="Mike Aguirres in Urine by d">Urine Medical Test strip Urobilinogen Center </content>0.2 MG/DL<content styleCode="Evelyn lics"> (0.2-1.0 MG/DL)</conten t> Nitrite NEGATIVE <content [facility] [Presence] in styleCode="Mike Aguirres Urine by Test d">Urine Medical strip Nitrite Center </content>NEGA TIVE <content styleCode="Evelyn lics"> (NEGATIVE )</content> Leukocyte NEGATIVE <content [facility] esterase styleCode="Mike Nhan [Presence] in d">Urine Medical Urine by Test Leukocyte Center strip </content>NEGA TIVE <content styleCode="Evelyn lics"> (NEGATIVE )</content> ID Date Data Source [facility].[id number] 05/03/2019 03:36:00 PM EDT [facility] Name Value Range Interpretation Code Description Data Ashlee rce(s) Supporting Document(s ) UNK <content [facility] styleCode="Bold"> Medical Cent er Cross-Match for Packed Cells </content>=[id number] A NEG. COM. (Reference Range: not available)
ID Date Data Source Stools.[id number] 05/03/2019 03:34:00 PM EDT [facility] Name Value Range Interpretation Code Description Data Ashlee rce(s) Supporting Document(s ) UNK NEGATIVE <content [facility] styleCode="Bold" Medical Cente r >Guaiac, Occult Blood </content>NEGATI VE <content styleCode="Itali cs"> (NEGATIVE )</content> ID Date Data [facility][id number] 05/03/2019 03:32:00 PM EDT [facility] Name Value Range Interpretation Code Description Data Ashlee rce(s) Supporting Document(s ) UNK <content [facility] styleCode="Bold" Medical Cente r >Blood Type </content>GROUP A (Reference Range: not available)
UNK NEGATIVE <content [facility] styleCode="Bold" Medical Cente r >Antibody Screen </content>NEGATI VE <content styleCode="Itali cs"> (NEGATIVE )</content> UNK <content [facility] styleCode="Bold" Medical Cente r >Packed Red Blood Cells </content>Transf used 1 unit. (Reference Range: not available)
UNK <content [facility] styleCode="Bold" Medical Cente r >Cross-Match for Packed Cells </content>=[id number] O POS. COMP. (Reference Range: not available)
UNK <content [facility] styleCode="Bold" Medical Cente r >RH Type </content>POSITI VE (Reference Range: not available)
UNK <content [facility] styleCode="Bold" Medical Cente r >Cross-Match for Packed Cells </content>[id number] COMP O POS (Reference Range: not available)
ID Date Data Source Coagulation 05/03/2019 02:43:00 PM [facility] ical [facility] Rout.[id number] EDT Name Value Range Interpretation Description Data Sup porting Code Source(s) Document(s ) UNK 9.0-13.0 Above high normal <content Saint styleCode="Bold" Nhan >Protime Medical </content>13.5 Center SEC H<content styleCode="Itali cs"> (9.0-13.0 SEC)</content> INR in 0.80-1.2 Above high normal <content [facility] Platelet poor 0 styleCode="Bold" Nhan plasma by >INR Medical Coagulation </content>1.22 # Center assay H<content styleCode="Itali cs"> (0.80-1.20 #)</content> aPTT in 25.1-36. <content [facility] Platelet poor 5 styleCode="Bold" Nhan plasma by >Partial Medical Coagulation Thromboplastin Center assay Time </content>25.2 SEC<content styleCode="Itali cs"> (25.1-36.5 SEC)</content> ID Date Data Source [employer].[id number] 05/03/2019 02:43:00 PM EDT [facility] -0400 Name Value Range Interpretation Description Data Sup porting Code Source(s) Document(s ) Troponin < 0.034 Above upper panic <content Saint I.cardiac limits styleCode="Bold Nhan [Mass/volume ">Troponin I Medical ] in Serum </content><cont Center or Plasma ent styleCode="Bold ">0.065 NG/ML HH</content><co ntent styleCode="Ital ics"> (< 0.034 NG/ML)</content > ID Date Data Source Liver 05/03/2019 02:43:00 PM EDT [facility] Profile.[id number] Name Value Range Interpretation Description Data Sup porting Code Source(s) Document(s ) Aspartate 14-36 <content [facility] aminotransferase styleCode="Bold"> [facility] [Enzymatic Aspartate Medical activity/volume] Aminotransferase Center in Serum or Plasma (AST) </content>29 IU/L<content styleCode="Italic s"> (14-36 IU/L)</content> Albumin 3.5-5.0 Below low <content [facility] [Mass/volume] in normal styleCode="Bold"> Charly hs Serum or Plasma Albumin Medical </content>3.4 Center G/DL L<content styleCode="Italic s"> (3.5-5.0 G/DL)</content> Alkaline 38-126 <content [facility] phosphatase styleCode="Bold"> Nhan [Enzymatic Alkaline Medical activity/volume] Phosphatase (ALP) Cente r in Serum or Plasma </content>94 IU/L<content styleCode="Italic s"> (38-126 IU/L)</content> Bilirubin.total 0.2-1.3 <content [facility] [Mass/volume] in styleCode="Bold"> Charly hs Serum or Plasma Bilirubin Total Medical </content>0.8 Center MG/DL<content styleCode="Italic s"> (0.2-1.3 MG/DL)</content> Alanine 7-30 <content [facility] aminotransferase styleCode="Bold"> [facility] [Enzymatic Alanine Medical activity/volume] Aminotransferase Center in Serum or Plasma (ALT) </content>15 IU/L<content styleCode="Italic s"> (7-30 IU/L)</content> ID Date Data Source HematologyRou.[id number] 05/03/2019 02:43:00 PM EDT [facility] 0400 Name Value Range Interpretation Description Data Sup porting Code Source(s) Document(s ) Leukocytes 4.4-11.0 <content [facility] [#/volume] in styleCode="Bold [facility] Blood by ">White Blood Medical Automated count Cell Count Center </content>8.94 KCUMM<content styleCode="Ital ics"> (4.4-11.0 KCUMM)</content > Erythrocytes 4.0-5.1 Below low normal <content [facility] [#/volume] in styleCode="Bold Nhan Blood by ">Red Blood Medical Automated count Cell Count Center </content>2.23 MCUMM L<content styleCode="Ital ics"> (4.0-5.1 MCUMM)</content > Hemoglobin 12.3-16. Below lower <content [facility] [Mass/volume] in 0 panic limits styleCode="Bold [facility] Blood ">Hemoglobin Medical </content><cont Center ent styleCode="Bold ">5.2 G/DL LL</content><co ntent styleCode="Ital ics"> (12.3-16.0 G/DL)</content> Erythrocyte mean 26.0-34. Below low normal <content [facility] corpuscular 0 styleCode="Bold Nhan hemoglobin ">Mean Medical [Entitic mass] Corposcular Center by Automated Hemoglobin count </content>23.3 PG L<content styleCode="Ital ics"> (26.0-34.0 PG)</content> Hematocrit 36.0-46. Below lower <content [facility] [Volume 0 panic limits styleCode="Bold Nhan Fraction] of ">Hematocrit Medical Blood by </content><cont Center Automated count ent styleCode="Bold ">17.8 % LL</content><co ntent styleCode="Ital ics"> (36.0-46.0 %)</content> Erythrocyte mean 80.0-100 <content [facility] corpuscular .0 styleCode="Bold Nhan volume [Entitic ">Mean Medical volume] by Corpuscular Center Automated count Volume </content>79.8 FL<content styleCode="Ital ics"> (80.0-100.0 FL)</content> Platelets 130-400 Above high <content [facility] [#/volume] in normal styleCode="Bold Nhan Blood by ">Platelet Medical Automated count Count Center </content>408 KCUMM H<content styleCode="Ital ics"> (130-400 KCUMM)</content > Erythrocyte mean 32.0-37. Below low normal <content [facility] corpuscular 0 styleCode="Bold Nhan hemoglobin ">Mean Corpus. Medical concentration Hgb Center [Mass/volume] by Concentration Automated count (MCHC) </content>29.2 G/DL L<content styleCode="Ital ics"> (32.0-37.0 G/DL)</content> Erythrocyte 11.5-14. Above high <content [facility] distribution 5 normal styleCode="Bold Nhan width [Ratio] by ">Red Cell Medical Automated count Distribution Center Width </content>20.1 % H<content styleCode="Ital ics"> (11.5-14.5 %)</content> Neutrophils 36-66 Above high <content [facility] [#/volume] in normal styleCode="Bold Nhan Blood by ">Neutrophil Medical Automated count </content>79.2 Center % H<content styleCode="Ital ics"> (36-66 %)</content> Platelet mean 8.0-11.0 <content [facility] volume [Entitic styleCode="Bold Nhan volume] in Blood ">Mean Platelet Medical by Automated Volume Center count </content>10.8 FL<content styleCode="Ital ics"> (8.0-11.0 FL)</content> UNK 1.6-7.3 <content [facility] styleCode="Bold Nhan ">Neutrophil Medical Count Center </content>7.08 KCUMM<content styleCode="Ital ics"> (1.6-7.3 KCUMM)</content > Monocytes 3.0-10.0 <content [facility] [#/volume] in styleCode="Bold Nhan Blood by ">Monocyte Medical Automated count </content>7.0 Center %<content styleCode="Ital ics"> (3.0-10.0 %)</content> Lymphocytes 24.0-44. Below low normal <content [facility] [#/volume] in 0 styleCode="Bold Nhan Blood by ">Lymphocyte Medical Automated count </content>12.0 Center % L<content styleCode="Ital ics"> (24.0-44.0 %)</content> UNK 1.0-4.8 <content [facility] styleCode="Bold Nhan ">Lymphocyte Medical Count Center </content>1.07 KCUMM<content styleCode="Ital ics"> (1.0-4.8 KCUMM)</content > Basophils 0.0-1.0 <content [facility] [#/volume] in styleCode="Bold Nhan Blood by ">Basophil Medical Automated count </content>0.2 Center %<content styleCode="Ital ics"> (0.0-1.0 %)</content> Eosinophils 0-5.0 <content Saint [#/volume] in styleCode="Bold Nhan Blood by ">Eosinophil Medical Automated count </content>0.9 Center %<content styleCode="Ital ics"> (0-5.0 %)</content> UNK 0.0-0.6 <content [facility] styleCode="Bold Nhan ">Eosinophil Medical Count Center </content>0.08 KCUMM<content styleCode="Ital ics"> (0.0-0.6 KCUMM)</content > UNK 0.2-0.9 <content [facility] styleCode="Bold Nhan ">Monocyte Medical Count Center </content>0.63 KCUMM<content styleCode="Ital ics"> (0.2-0.9 KCUMM)</content > UNK 0-0.1 <content [facility] styleCode="Bold Nhan ">Immature Medical Granulocyte Center Count </content>0.06 KCUMM<content styleCode="Ital ics"> (0-0.1 KCUMM)</content > UNK 0.0 Above high <content [facility] normal styleCode="Bold Nhan ">Nucleated Red Medical Blood Cell Center Count </content>0.05 KCUMM H<content styleCode="Ital ics"> (0.0 KCUMM)</content > UNK 0 Above high <content [facility] normal styleCode="Bold Nhan ">Nucleated Red Medical Blood Cell Center </content>0.6 /100 H<content styleCode="Ital ics"> (0 /100)</content> UNK 0.0-0.3 <content [facility] styleCode="Bold Nhan ">Basophil Medical Count Center </content>0.02 KCUMM<content styleCode="Ital ics"> (0.0-0.3 KCUMM)</content > UNK < 1 <content Saint styleCode="Bold Nhan ">Immature Medical Granulocyte Center Ratio </content>0.7 %<content styleCode="Ital ics"> (< 1 %)</content> ID Date Data Source GFR(Creatinine).[id number] 05/03/2019 02:43:00 PM EDT [facility] 0-0400 Name Value Range Interpretation Code Description Data Ashlee rce(s) Supporting Document(s ) UNK > 60 Below low normal <content [facility] styleCode="Bold"> Medical Cent er EGFR </content>34 GFR L<content styleCode="Italic s"> (> 60 GFR)</content> ID Date Data Source [facility]MROUTR[facility]ASCCDA.[id number] 05/03/2019 02:43:00 PM EDT [facility] -0400 Name Value Range Interpretation Description Data Sup porting Code Source(s) Document(s ) Natriuretic < 125 Above high normal <content [facility] peptide.B styleCode="Mike Nhan prohormone d">NT Pro BNP Medical N-Terminal </content>7750 Center [Mass/volume] PG/ML in Serum or H<content Plasma styleCode="Evelyn lics"> (< 125 PG/ML)</conten t> Protein 6.3-8.2 <content [facility] [Mass/volume] styleCode="Mike Nhan in Serum or d">Total Medical Plasma Protein Center </content>6.9 G/DL<content styleCode="Evelyn lics"> (6.3-8.2 G/DL)</content > UNK 2.3-3.5 <content [facility] styleCode="Mike Nhan d">Globulin Medical </content>3.5 Center G/DL<content styleCode="Evelyn lics"> (2.3-3.5 G/DL)</content > UNK >= 1.0 <content [facility] styleCode="Mike Nahn d">AG Ratio Medical </content>1.0 Center <content styleCode="Evelyn lics"> (>= 1.0 )</content> ID Date Data Source BloodBank.[id number] 05/03/2019 02:43:00 PM EDT [facility] Name Value Range Interpretation Code Description Data Ashlee rce(s) Supporting Document(s ) UNK <content [facility] styleCode="Bold"> Medical Cent er RH Type </content>POSITIV E (Reference Range: not available)
UNK <content [facility] styleCode="Bold"> Medical Cent er Blood Type </content>GROUP A (Reference Range: not available)
UNK <content [facility] styleCode="Bold"> Medical Cent er Cross-Match for Packed Cells </content>=[id number] COMP O POS (Reference Range: not available)
ID Date Data Source [facility].[id number] 05/03/2019 02:43:00 PM EDT [facility] Name Value Range Interpretation Description Data Sup porting Code Source(s) Document(s ) Carbon dioxide, 22-30 <content [facility] total styleCode="Bold"> Nhan [Moles/volume] in Carbon Dioxide Medical Serum or Plasma </content>26 Center MEQ/L<content styleCode="Italic s"> (22-30 MEQ/L)</content> Chloride 98-107 <content [facility] [Moles/volume] in styleCode="Bold"> Matthew phs Serum or Plasma Chloride Medical </content>104 Center MEQ/L<content styleCode="Italic s"> (98-107 MEQ/L)</content> Sodium 137-145 <content [facility] [Moles/volume] in styleCode="Bold"> Matthew phs Serum or Plasma Sodium Medical </content>143 Center MEQ/L<content styleCode="Italic s"> (137-145 MEQ/L)</content> Potassium <content [facility] [Moles/volume] in styleCode="Bold"> Matthew phs Serum or Plasma Potassium Medical </content>Test Center not performed. MEQ/L (Reference Range: not available)
UNK 7-17 Above high <content [facility] normal styleCode="Bold"> Nhan BUN </content>27 Medical MG/DL H<content Center styleCode="Italic s"> (7-17 MG/DL)</content> Calcium 8.4-10. <content [facility] [Mass/volume] in 2 styleCode="Bold"> Charly hs Serum or Plasma Calcium Medical </content>9.2 Center MG/DL<content styleCode="Italic s"> (8.4-10.2 MG/DL)</content> Creatinine 0.5-1.3 Above high <content [facility] [Mass/volume] in normal styleCode="Bold"> Charly hs Serum or Plasma Creatinine Medical </content>1.6 Center MG/DL H<content styleCode="Italic s"> (0.5-1.3 MG/DL)</content> UNK > 60 Below low <content [facility] normal styleCode="Bold"> Nhan EGFR </content>34 Medical GFR L<content Center styleCode="Italic s"> (> 60 GFR)</content> Glucose 74-106 <content [facility] [Mass/volume] in styleCode="Bold"> Charly hs Serum or Plasma Glucose Medical </content>105 Center MG/DL<content styleCode="Italic s"> (74-106 MG/DL)</content> Albumin 3.5-5.0 Below low <content [facility] [Mass/volume] in normal styleCode="Bold"> Charly hs Serum or Plasma Albumin Medical </content>3.4 Center G/DL L<content styleCode="Italic s"> (3.5-5.0 G/DL)</content> Alkaline 38-126 <content [facility] phosphatase styleCode="Bold"> Nhan [Enzymatic Alkaline Medical activity/volume] Phosphatase (ALP) Cente r in Serum or Plasma </content>94 IU/L<content styleCode="Italic s"> (38-126 IU/L)</content> Bilirubin.total 0.2-1.3 <content [facility] [Mass/volume] in styleCode="Bold"> Charly hs Serum or Plasma Bilirubin Total Medical </content>0.8 Center MG/DL<content styleCode="Italic s"> (0.2-1.3 MG/DL)</content> Aspartate 14-36 <content [facility] aminotransferase styleCode="Bold"> Charly hs [Enzymatic Aspartate Medical activity/volume] Aminotransferase Center in Serum or Plasma (AST) </content>29 IU/L<content styleCode="Italic s"> (14-36 IU/L)</content> Alanine 7-30 <content [facility] aminotransferase styleCode="Bold"> Charly hs [Enzymatic Alanine Medical activity/volume] Aminotransferase Center in Serum or Plasma (ALT) </content>15 IU/L<content styleCode="Italic s"> (7-30 IU/L)</content> ID Date Data Source GFR(Creatinine).[id number] 03/05/2019 12:40:00 PM EDT [facility] 0-0400 Name Value Range Interpretation Code Description Data Ashlee rce(s) Supporting Document(s ) UNK > 60 Below low normal <content [facility] styleCode="Bold"> Medical Cent er EGFR </content>52 GFR L<content styleCode="Italic s"> (> 60 GFR)</content> ID Date Data Source Coagulation 03/05/2019 12:40:00 PM [facility] Rout.[id number] EDT Name Value Range Interpretation Description Data Sup porting Code Source(s) Document(s ) aPTT in 25.1-36. Above high normal <content [facility] Platelet poor 5 styleCode="Bold" [facility] plasma by >Partial Medical Coagulation Thromboplastin Center assay Time </content>43.8 SEC H<content styleCode="Itali cs"> (25.1-36.5 SEC)</content> UNK 9.0-13.0 <content Saint styleCode="Bold" [facility] >Protime Medical </content>11.7 Center SEC<content styleCode="Itali cs"> (9.0-13.0 SEC)</content> INR in 0.80-1.2 <content [facility] Platelet poor 0 styleCode="Bold" Nhan plasma by >INR Medical Coagulation </content>1.03 Center assay #<content styleCode="Itali cs"> (0.80-1.20 #)</content> ID Date Data Source MANDA.[id number] 03/05/2019 12:40:00 PM EDT [facility] Name Value Range Interpretation Description Data Sup porting Code Source(s) Document(s ) Sodium 137-145 <content [facility] [Moles/volume] styleCode="Mike Nhan in Serum or d">Sodium Medical Plasma </content>139 Center MEQ/L<content styleCode="Evelyn lics"> (137-145 MEQ/L)</conten t> Carbon 22-30 <content [facility] dioxide, total styleCode="Mike Nhan [Moles/volume] d">Carbon Medical in Serum or Dioxide Center Plasma </content>29 MEQ/L<content styleCode="Evelyn lics"> (22-30 MEQ/L)</conten t> Potassium 3.5-5.3 <content [facility] [Moles/volume] styleCode="Mike Nhan in Serum or d">Potassium Medical Plasma </content>4.4 Center MEQ/L<content styleCode="Evelyn lics"> (3.5-5.3 MEQ/L)</conten t> UNK 7-17 Above high normal <content [facility] styleCode="Mike Nhan d">BUN Medical </content>34 Center MG/DL H<content styleCode="Evelyn lics"> (7-17 MG/DL)</conten t> Chloride 98-107 <content [facility] [Moles/volume] styleCode="Mike Nhan in Serum or d">Chloride Medical Plasma </content>100 Center MEQ/L<content styleCode="Evelyn lics"> (98-107 MEQ/L)</conten t> Creatinine 0.5-1.3 <content [facility] [Mass/volume] styleCode="Mike Nhan in Serum or d">Creatinine Medical Plasma </content>1.3 Center MG/DL<content styleCode="Evelyn lics"> (0.5-1.3 MG/DL)</conten t> Glucose 74-106 <content [facility] [Mass/volume] styleCode="Mike Aguirres in Serum or d">Glucose Medical Plasma </content>94 Center MG/DL<content styleCode="Evelyn lics"> (74-106 MG/DL)</conten t> Calcium 8.4-10.2 <content [facility] [Mass/volume] styleCode="Mike Aguirres in Serum or d">Calcium Medical Plasma </content>10.1 Center MG/DL<content styleCode="Evelyn lics"> (8.4-10.2 MG/DL)</conten t> UNK > 60 Below low normal <content [facility] styleCode="Mike Aguirres d">EGFR Medical </content>52 Center GFR L<content styleCode="Evelyn lics"> (> 60 GFR)</content> ID Date Data Source Liver 03/05/2019 05:36:00 AM EDT [facility] Profile.[id number] Name Value Range Interpretation Description Data Sup porting Code Source(s) Document(s ) Alkaline 38-126 <content [facility] phosphatase styleCode="Bold"> Nhan [Enzymatic Alkaline Medical activity/volume] Phosphatase (ALP) Cente r in Serum or Plasma </content>75 IU/L<content styleCode="Italic s"> (38-126 IU/L)</content> Alanine 7-30 <content [facility] aminotransferase styleCode="Bold"> Charly hs [Enzymatic Alanine Medical activity/volume] Aminotransferase Center in Serum or Plasma (ALT) </content>25 IU/L<content styleCode="Italic s"> (7-30 IU/L)</content> Aspartate 14-36 <content [facility] aminotransferase styleCode="Bold"> Charly hs [Enzymatic Aspartate Medical activity/volume] Aminotransferase Center in Serum or Plasma (AST) </content>29 IU/L<content styleCode="Italic s"> (14-36 IU/L)</content> Albumin 3.5-5.0 Below low <content [facility] [Mass/volume] in normal styleCode="Bold"> Charly hs Serum or Plasma Albumin Medical </content>3.2 Center G/DL L<content styleCode="Italic s"> (3.5-5.0 G/DL)</content> Bilirubin.total 0.2-1.3 <content [facility] [Mass/volume] in styleCode="Bold"> Charly hs Serum or Plasma Bilirubin Total Medical </content>0.4 Center MG/DL<content styleCode="Italic s"> (0.2-1.3 MG/DL)</content> ID Date Data Source HematologyRou.[id number] 03/05/2019 05:36:00 AM EDT [facility]400 Name Value Range Interpretation Description Data Sup porting Code Source(s) Document(s ) Leukocytes 4.4-11.0 <content [facility] [#/volume] in styleCode="Bold Nhan Blood by ">White Blood Medical Automated count Cell Count Center </content>10.58 KCUMM<content styleCode="Ital ics"> (4.4-11.0 KCUMM)</content > Erythrocytes 4.0-5.1 Below low normal <content [facility] [#/volume] in styleCode="Bold Nhan Blood by ">Red Blood Medical Automated count Cell Count Center </content>3.18 MCUMM L<content styleCode="Ital ics"> (4.0-5.1 MCUMM)</content > Hematocrit 36.0-46. Below low normal <content [facility] [Volume 0 styleCode="Bold Nhan Fraction] of ">Hematocrit Medical Blood by </content>30.1 Center Automated count % L<content styleCode="Ital ics"> (36.0-46.0 %)</content> Hemoglobin 12.3-16. Below low normal <content [facility] [Mass/volume] in 0 styleCode="Bold Nhan Blood ">Hemoglobin Medical </content>9.5 Center G/DL L<content styleCode="Ital ics"> (12.3-16.0 G/DL)</content> Erythrocyte mean 80.0-100 <content [facility] corpuscular .0 styleCode="Bold Nhan volume [Entitic ">Mean Medical volume] by Corpuscular Center Automated count Volume </content>94.7 FL<content styleCode="Ital ics"> (80.0-100.0 FL)</content> Erythrocyte mean 32.0-37. Below low normal <content [facility] corpuscular 0 styleCode="Bold Nhan hemoglobin ">Mean Corpus. Medical concentration Hgb Center [Mass/volume] by Concentration Automated count (MCHC) </content>31.6 G/DL L<content styleCode="Ital ics"> (32.0-37.0 G/DL)</content> Erythrocyte mean 26.0-34. <content [facility] corpuscular 0 styleCode="Bold Nhan hemoglobin ">Mean Medical [Entitic mass] Corposcular Center by Automated Hemoglobin count </content>29.9 PG<content styleCode="Ital ics"> (26.0-34.0 PG)</content> Erythrocyte 11.5-14. Above high <content [facility] distribution 5 normal styleCode="Bold Nhan width [Ratio] by ">Red Cell Medical Automated count Distribution Center Width </content>15.7 % H<content styleCode="Ital ics"> (11.5-14.5 %)</content> Platelets 130-400 <content [facility] [#/volume] in styleCode="Bold Nhan Blood by ">Platelet Medical Automated count Count Center </content>268 KCUMM<content styleCode="Ital ics"> (130-400 KCUMM)</content > Platelet mean 8.0-11.0 Above high <content [facility] volume [Entitic normal styleCode="Bold Nhan volume] in Blood ">Mean Platelet Medical by Automated Volume Center count </content>11.8 FL H<content styleCode="Ital ics"> (8.0-11.0 FL)</content> UNK 1.6-7.3 Above high <content [facility] normal styleCode="Bold Nhan ">Neutrophil Medical Count Center </content>8.20 KCUMM H<content styleCode="Ital ics"> (1.6-7.3 KCUMM)</content > Lymphocytes 24.0-44. Below low normal <content [facility] [#/volume] in 0 styleCode="Bold Nhan Blood by ">Lymphocyte Medical Automated count </content>15.8 Center % L<content styleCode="Ital ics"> (24.0-44.0 %)</content> Neutrophils 36-66 Above high <content [facility] [#/volume] in normal styleCode="Bold Nhan Blood by ">Neutrophil Medical Automated count </content>77.4 Center % H<content styleCode="Ital ics"> (36-66 %)</content> Monocytes 3.0-10.0 <content [facility] [#/volume] in styleCode="Bold Nhan Blood by ">Monocyte Medical Automated count </content>5.7 Center %<content styleCode="Ital ics"> (3.0-10.0 %)</content> UNK 0.2-0.9 <content Saint styleCode="Bold Nhan ">Monocyte Medical Count Center </content>0.60 KCUMM<content styleCode="Ital ics"> (0.2-0.9 KCUMM)</content > UNK 1.0-4.8 <content Saint styleCode="Bold Nhan ">Lymphocyte Medical Count Center </content>1.67 KCUMM<content styleCode="Ital ics"> (1.0-4.8 KCUMM)</content > Eosinophils 0-5.0 <content [facility] [#/volume] in styleCode="Bold Nhan Blood by ">Eosinophil Medical Automated count </content>0.1 Center %<content styleCode="Ital ics"> (0-5.0 %)</content> Basophils 0.0-1.0 <content [facility] [#/volume] in styleCode="Bold Nhan Blood by ">Basophil Medical Automated count </content>0.1 Center %<content styleCode="Ital ics"> (0.0-1.0 %)</content> UNK 0.0-0.6 <content [facility] styleCode="Bold Nhan ">Eosinophil Medical Count Center </content>0.01 KCUMM<content styleCode="Ital ics"> (0.0-0.6 KCUMM)</content > UNK 0.0 Above high <content [facility] normal styleCode="Bold Nhan ">Nucleated Red Medical Blood Cell Center Count </content>0.03 KCUMM H<content styleCode="Ital ics"> (0.0 KCUMM)</content > UNK 0.0-0.3 <content Saint styleCode="Bold Nhan ">Basophil Medical Count Center </content>0.01 KCUMM<content styleCode="Ital ics"> (0.0-0.3 KCUMM)</content > UNK 0 Above high <content [facility] normal styleCode="Bold Nhan ">Nucleated Red Medical Blood Cell Center </content>0.3 /100 H<content styleCode="Ital ics"> (0 /100)</content> UNK < 1 <content [facility] styleCode="Bold Nhan ">Immature Medical Granulocyte Center Ratio </content>0.9 %<content styleCode="Ital ics"> (< 1 %)</content> UNK 0-0.1 <content Saint styleCode="Bold Nhan ">Immature Medical Granulocyte Center Count </content>0.09 KCUMM<content styleCode="Ital ics"> (0-0.1 KCUMM)</content > ID Date Data Source GFR(Creatinine).[id number] 03/05/2019 05:36:00 AM EDT [facility] 0-0400 Name Value Range Interpretation Code Description Data Ashlee rce(s) Supporting Document(s ) UNK > 60 Below low normal <content [facility] styleCode="Bold"> Medical Cent er EGFR </content>48 GFR L<content styleCode="Italic s"> (> 60 GFR)</content> ID Date Data Source Coagulation 03/05/2019 05:36:00 AM [facility] Rout.[id number] EDT Name Value Range Interpretation Description Data Sup porting Code Source(s) Document(s ) aPTT in 25.1-36. Above high normal <content [facility] Platelet poor 5 styleCode="Bold" [facility] plasma by >Partial Medical Coagulation Thromboplastin Center assay Time </content>83.5 SEC H<content styleCode="Itali cs"> (25.1-36.5 SEC)</content> INR in 0.80-1.2 <content [facility] Platelet poor 0 styleCode="Bold" Nhan plasma by >INR Medical Coagulation </content>1.05 Center assay #<content styleCode="Itali cs"> (0.80-1.20 #)</content> UNK 9.0-13.0 <content Saint styleCode="Bold" Nhan >Protime Medical </content>11.9 Center SEC<content styleCode="Itali cs"> (9.0-13.0 SEC)</content> ID Date Data Source [id number] 03/05/2019 05:36:00 AM EDT [facility] -[facility] Name Value Range Interpretation Description Data Sup porting Code Source(s) Document(s ) UNK >= 1.0 Below low normal <content Saint styleCode="Mike Nhan d">AG Ratio Medical </content>0.9 Center L<content styleCode="Evelyn lics"> (>= 1.0 )</content> UNK 2.3-3.5 <content [facility] styleCode="Mike Nhan d">Globulin Medical </content>3.5 Center G/DL<content styleCode="Evelyn lics"> (2.3-3.5 G/DL)</content > Magnesium 1.6-2.3 <content [facility] [Mass/volume] styleCode="Mike Nhan in Serum or d">Magnesium Medical Plasma </content>2.3 Center MG/DL<content styleCode="Evelyn lics"> (1.6-2.3 MG/DL)</conten t> Protein 6.3-8.2 <content [facility] [Mass/volume] styleCode="Mike Nhan in Serum or d">Total Medical Plasma Protein Center </content>6.7 G/DL<content styleCode="Evelyn lics"> (6.3-8.2 G/DL)</content > ID Date Data Source [facility].[id number] 03/05/2019 05:36:00 AM EDT [facility] Name Value Range Interpretation Description Data Sup porting Code Source(s) Document(s ) Sodium 137-145 <content [facility] [Moles/volume] in styleCode="Bold"> [facility] Serum or Plasma Sodium Medical </content>144 Center MEQ/L<content styleCode="Italic s"> (137-145 MEQ/L)</content> Carbon dioxide, 22-30 Above high <content [facility] total normal styleCode="Bold"> Nhan [Moles/volume] in Carbon Dioxide Medical Serum or Plasma </content>32 Center MEQ/L H<content styleCode="Italic s"> (22-30 MEQ/L)</content> Chloride 98-107 <content [facility] [Moles/volume] in styleCode="Bold"> [facility] Serum or Plasma Chloride Medical </content>102 Center MEQ/L<content styleCode="Italic s"> (98-107 MEQ/L)</content> Potassium 3.5-5.3 Above high <content [facility] [Moles/volume] in normal styleCode="Bold"> [facility] Serum or Plasma Potassium Medical </content>5.5 Center MEQ/L H<content styleCode="Italic s"> (3.5-5.3 MEQ/L)</content> Calcium 8.4-10. <content [facility] [Mass/volume] in 2 styleCode="Bold"> Charly hs Serum or Plasma Calcium Medical </content>9.9 Center MG/DL<content styleCode="Italic s"> (8.4-10.2 MG/DL)</content> Creatinine 0.5-1.3 Above high <content [facility] [Mass/volume] in normal styleCode="Bold"> Charly hs Serum or Plasma Creatinine Medical </content>1.4 Center MG/DL H<content styleCode="Italic s"> (0.5-1.3 MG/DL)</content> Glucose 74-106 Above high <content [facility] [Mass/volume] in normal styleCode="Bold"> Charly hs Serum or Plasma Glucose Medical </content>129 Center MG/DL H<content styleCode="Italic s"> (74-106 MG/DL)</content> UNK 7-17 Above high <content [facility] normal styleCode="Bold"> Nhan BUN </content>37 Medical MG/DL H<content Center styleCode="Italic s"> (7-17 MG/DL)</content> Aspartate 14-36 <content [facility] aminotransferase styleCode="Bold"> Charly hs [Enzymatic Aspartate Medical activity/volume] Aminotransferase Center in Serum or Plasma (AST) </content>29 IU/L<content styleCode="Italic s"> (14-36 IU/L)</content> Alanine 7-30 <content [facility] aminotransferase styleCode="Bold"> Charly hs [Enzymatic Alanine Medical activity/volume] Aminotransferase Center in Serum or Plasma (ALT) </content>25 IU/L<content styleCode="Italic s"> (7-30 IU/L)</content> UNK > 60 Below low <content [facility] normal styleCode="Bold"> Nhan EGFR </content>48 Medical GFR L<content Center styleCode="Italic s"> (> 60 GFR)</content> Bilirubin.total 0.2-1.3 <content [facility] [Mass/volume] in styleCode="Bold"> Charly hs Serum or Plasma Bilirubin Total Medical </content>0.4 Center MG/DL<content styleCode="Italic s"> (0.2-1.3 MG/DL)</content> Albumin 3.5-5.0 Below low <content [facility] [Mass/volume] in normal styleCode="Bold"> Charly hs Serum or Plasma Albumin Medical </content>3.2 Center G/DL L<content styleCode="Italic s"> (3.5-5.0 G/DL)</content> Alkaline 38-126 <content [facility] phosphatase styleCode="Bold"> Nhan [Enzymatic Alkaline Medical activity/volume] Phosphatase (ALP) Cente r in Serum or Plasma </content>75 IU/L<content styleCode="Italic s"> (38-126 IU/L)</content> ID Date Data Source Coagulation 03/04/2019 04:45:00 PM [facility] Rout.[id number] EDT Name Value Range Interpretation Description Data Sup porting Code Source(s) Document(s ) UNK 9.0-13.0 <content Saint styleCode="Bold" Nhan >Protime Medical </content>11.5 Center SEC<content styleCode="Itali cs"> (9.0-13.0 SEC)</content> aPTT in 25.1-36. Above high normal <content [facility] Platelet poor 5 styleCode="Bold" Nhan plasma by >Partial Medical Coagulation Thromboplastin Center assay Time </content>60.4 SEC H<content styleCode="Itali cs"> (25.1-36.5 SEC)</content> INR in 0.80-1.2 <content [facility] Platelet poor 0 styleCode="Bold" Nhan plasma by >INR Medical Coagulation </content>1.02 Center assay #<content styleCode="Itali cs"> (0.80-1.20 #)</content> ID Date Data Source Coagulation 03/04/2019 08:30:00 AM [facility] Rout.[id number] EDT Name Value Range Interpretation Description Data Sup porting Code Source(s) Document(s ) INR in 0.80-1.2 <content [facility] Platelet poor 0 styleCode="Bold" Nhan plasma by >INR Medical Coagulation </content>1.01 Center assay #<content styleCode="Itali cs"> (0.80-1.20 #)</content> UNK 9.0-13.0 <content [facility] styleCode="Bold" Nhan >Protime Medical </content>11.4 Center SEC<content styleCode="Itali cs"> (9.0-13.0 SEC)</content> aPTT in 25.1-36. Above high normal <content [facility] Platelet poor 5 styleCode="Bold" Nhan plasma by >Partial Medical Coagulation Thromboplastin Center assay Time </content>44.8 SEC H<content styleCode="Itali cs"> (25.1-36.5 SEC)</content> ID Date Data Source Liver 03/04/2019 05:37:00 AM EDT [facility] Profile.[id number] Name Value Range Interpretation Description Data Sup porting Code Source(s) Document(s ) Alanine 7-30 <content [facility] aminotransferase styleCode="Bold"> Charly hs [Enzymatic Alanine Medical activity/volume] Aminotransferase Center in Serum or Plasma (ALT) </content>25 IU/L<content styleCode="Italic s"> (7-30 IU/L)</content> Aspartate 14-36 <content [facility] aminotransferase styleCode="Bold"> Charly hs [Enzymatic Aspartate Medical activity/volume] Aminotransferase Center in Serum or Plasma (AST) </content>21 IU/L<content styleCode="Italic s"> (14-36 IU/L)</content> Albumin 3.5-5.0 <content [facility] [Mass/volume] in styleCode="Bold"> Charly hs Serum or Plasma Albumin Medical </content>3.8 Center G/DL<content styleCode="Italic s"> (3.5-5.0 G/DL)</content> Bilirubin.total 0.2-1.3 <content [facility] [Mass/volume] in styleCode="Bold"> Charly hs Serum or Plasma Bilirubin Total Medical </content>0.5 Center MG/DL<content styleCode="Italic s"> (0.2-1.3 MG/DL)</content> Alkaline 38-126 <content [facility] phosphatase styleCode="Bold"> Nhan [Enzymatic Alkaline Medical activity/volume] Phosphatase (ALP) Cente r in Serum or Plasma </content>88 IU/L<content styleCode="Italic s"> (38-126 IU/L)</content> ID Date Data Source HematologyRou.[id number] 03/04/2019 05:37:00 AM EDT [facility] 0400 Name Value Range Interpretation Description Data Sup porting Code Source(s) Document(s ) Erythrocytes 4.0-5.1 Below low normal <content [facility] [#/volume] in styleCode="Bold [facility] Blood by ">Red Blood Medical Automated count Cell Count Center </content>3.53 MCUMM L<content styleCode="Ital ics"> (4.0-5.1 MCUMM)</content > Leukocytes 4.4-11.0 <content [facility] [#/volume] in styleCode="Bold Nhan Blood by ">White Blood Medical Automated count Cell Count Center </content>10.20 KCUMM<content styleCode="Ital ics"> (4.4-11.0 KCUMM)</content > Erythrocyte mean 80.0-100 <content [facility] corpuscular .0 styleCode="Bold Nhan volume [Entitic ">Mean Medical volume] by Corpuscular Center Automated count Volume </content>92.9 FL<content styleCode="Ital ics"> (80.0-100.0 FL)</content> Hematocrit 36.0-46. Below low normal <content [facility] [Volume 0 styleCode="Bold Nhan Fraction] of ">Hematocrit Medical Blood by </content>32.8 Center Automated count % L<content styleCode="Ital ics"> (36.0-46.0 %)</content> Hemoglobin 12.3-16. Below low normal <content [facility] [Mass/volume] in 0 styleCode="Bold Nhan Blood ">Hemoglobin Medical </content>10.4 Center G/DL L<content styleCode="Ital ics"> (12.3-16.0 G/DL)</content> Erythrocyte mean 26.0-34. <content [facility] corpuscular 0 styleCode="Bold Nhan hemoglobin ">Mean Medical [Entitic mass] Corposcular Center by Automated Hemoglobin count </content>29.5 PG<content styleCode="Ital ics"> (26.0-34.0 PG)</content> Erythrocyte 11.5-14. Above high <content [facility] distribution 5 normal styleCode="Bold Nhan width [Ratio] by ">Red Cell Medical Automated count Distribution Center Width </content>15.8 % H<content styleCode="Ital ics"> (11.5-14.5 %)</content> Erythrocyte mean 32.0-37. Below low normal <content [facility] corpuscular 0 styleCode="Bold Nhan hemoglobin ">Mean Corpus. Medical concentration Hgb Center [Mass/volume] by Concentration Automated count (MCHC) </content>31.7 G/DL L<content styleCode="Ital ics"> (32.0-37.0 G/DL)</content> Neutrophils 36-66 Above high <content Saint [#/volume] in normal styleCode="Bold Nhan Blood by ">Neutrophil Medical Automated count </content>81.3 Center % H<content styleCode="Ital ics"> (36-66 %)</content> Platelets 130-400 <content [facility] [#/volume] in styleCode="Bold Nhan Blood by ">Platelet Medical Automated count Count Center </content>278 KCUMM<content styleCode="Ital ics"> (130-400 KCUMM)</content > Platelet mean 8.0-11.0 Above high <content [facility] volume [Entitic normal styleCode="Bold Nhan volume] in Blood ">Mean Platelet Medical by Automated Volume Center count </content>12.1 FL H<content styleCode="Ital ics"> (8.0-11.0 FL)</content> UNK 1.6-7.3 Above high <content [facility] normal styleCode="Bold Nhan ">Neutrophil Medical Count Center </content>8.29 KCUMM H<content styleCode="Ital ics"> (1.6-7.3 KCUMM)</content > Lymphocytes 24.0-44. Below low normal <content [facility] [#/volume] in 0 styleCode="Bold Nhan Blood by ">Lymphocyte Medical Automated count </content>14.1 Center % L<content styleCode="Ital ics"> (24.0-44.0 %)</content> UNK 1.0-4.8 <content Saint styleCode="Bold Nhan ">Lymphocyte Medical Count Center </content>1.44 KCUMM<content styleCode="Ital ics"> (1.0-4.8 KCUMM)</content > Monocytes 3.0-10.0 <content [facility] [#/volume] in styleCode="Bold Nhan Blood by ">Monocyte Medical Automated count </content>3.6 Center %<content styleCode="Ital ics"> (3.0-10.0 %)</content> Eosinophils 0-5.0 <content Saint [#/volume] in styleCode="Bold Nhan Blood by ">Eosinophil Medical Automated count </content>0.1 Center %<content styleCode="Ital ics"> (0-5.0 %)</content> UNK 0.2-0.9 <content Saint styleCode="Bold Nhan ">Monocyte Medical Count Center </content>0.37 KCUMM<content styleCode="Ital ics"> (0.2-0.9 KCUMM)</content > UNK 0.0-0.3 <content Saint styleCode="Bold Nhan ">Basophil Medical Count Center </content>0.01 KCUMM<content styleCode="Ital ics"> (0.0-0.3 KCUMM)</content > Basophils 0.0-1.0 <content [facility] [#/volume] in styleCode="Bold Nhan Blood by ">Basophil Medical Automated count </content>0.1 Center %<content styleCode="Ital ics"> (0.0-1.0 %)</content> UNK 0.0-0.6 <content [facility] styleCode="Bold Nhan ">Eosinophil Medical Count Center </content>0.01 KCUMM<content styleCode="Ital ics"> (0.0-0.6 KCUMM)</content > UNK 0 Above high <content [facility] normal styleCode="Bold Nhan ">Nucleated Red Medical Blood Cell Center </content>0.3 /100 H<content styleCode="Ital ics"> (0 /100)</content> UNK 0.0 Above high <content [facility] normal styleCode="Bold Nhan ">Nucleated Red Medical Blood Cell Center Count </content>0.03 KCUMM H<content styleCode="Ital ics"> (0.0 KCUMM)</content > UNK 0-0.1 <content Saint styleCode="Bold Nhan ">Immature Medical Granulocyte Center Count </content>0.08 KCUMM<content styleCode="Ital ics"> (0-0.1 KCUMM)</content > UNK < 1 <content Saint styleCode="Bold Nhan ">Immature Medical Granulocyte Center Ratio </content>0.8 %<content styleCode="Ital ics"> (< 1 %)</content> ID Date Data Source GFR(Creatinine).[id number] 03/04/2019 05:37:00 AM EDT [facility] 0-0400 Name Value Range Interpretation Code Description Data Ashlee rce(s) Supporting Document(s ) UNK > 60 Below low normal <content [facility] styleCode="Bold"> Medical Cent er EGFR </content>52 GFR L<content styleCode="Italic s"> (> 60 GFR)</content> ID Date Data Source CHMROUTINECCDA.[id number] 03/04/2019 05:37:00 AM EDT [facility] -0400 Name Value Range Interpretation Description Data Sup porting Code Source(s) Document(s ) UNK 2.3-3.5 Above high normal <content [facility] styleCode="Mike Nhan d">Globulin Medical </content>3.8 Center G/DL H<content styleCode="Evelyn lics"> (2.3-3.5 G/DL)</content > UNK >= 1.0 <content [facility] styleCode="Mike Nhan d">AG Ratio Medical </content>1.0 Center <content styleCode="Evelyn lics"> (>= 1.0 )</content> Phosphate 2.5-4.5 Above high normal <content [facility] [Mass/volume] styleCode="Mike Nhan in Serum or d">Phosphorus Medical Plasma </content>4.7 Center MG/DL H<content styleCode="Evelyn lics"> (2.5-4.5 MG/DL)</conten t> Protein 6.3-8.2 <content [facility] [Mass/volume] styleCode="Mike Nhan in Serum or d">Total Medical Plasma Protein Center </content>7.6 G/DL<content styleCode="Evelyn lics"> (6.3-8.2 G/DL)</content > Magnesium 1.6-2.3 <content [facility] [Mass/volume] styleCode="Mike Nhan in Serum or d">Magnesium Medical Plasma </content>2.2 Center MG/DL<content styleCode="Evelyn lics"> (1.6-2.3 MG/DL)</conten t> ID Date Data Source [facility].[id number] 03/04/2019 05:37:00 AM EDT [facility] Name Value Range Interpretation Description Data Sup porting Code Source(s) Document(s ) Potassium 3.5-5.3 <content [facility] [Moles/volume] in styleCode="Bold"> [facility] Serum or Plasma Potassium Medical </content>5.2 Center MEQ/L<content styleCode="Italic s"> (3.5-5.3 MEQ/L)</content> Sodium 137-145 <content [facility] [Moles/volume] in styleCode="Bold"> [facility] Serum or Plasma Sodium Medical </content>140 Center MEQ/L<content styleCode="Italic s"> (137-145 MEQ/L)</content> Chloride 98-107 <content [facility] [Moles/volume] in styleCode="Bold"> [facility] Serum or Plasma Chloride Medical </content>105 Center MEQ/L<content styleCode="Italic s"> (98-107 MEQ/L)</content> UNK 7-17 Above high <content [facility] normal styleCode="Bold"> Nhan BUN </content>33 Medical MG/DL H<content Center styleCode="Italic s"> (7-17 MG/DL)</content> Carbon dioxide, 22-30 <content [facility] total styleCode="Bold"> Nhan [Moles/volume] in Carbon Dioxide Medical Serum or Plasma </content>29 Center MEQ/L<content styleCode="Italic s"> (22-30 MEQ/L)</content> Creatinine 0.5-1.3 <content [facility] [Mass/volume] in styleCode="Bold"> [facility] Serum or Plasma Creatinine Medical </content>1.3 Center MG/DL<content styleCode="Italic s"> (0.5-1.3 MG/DL)</content> Glucose 74-106 Above high <content [facility] [Mass/volume] in normal styleCode="Bold"> [facility] Serum or Plasma Glucose Medical </content>123 Center MG/DL H<content styleCode="Italic s"> (74-106 MG/DL)</content> Aspartate 14-36 <content [facility] aminotransferase styleCode="Bold"> [facility] [Enzymatic Aspartate Medical activity/volume] Aminotransferase Center in Serum or Plasma (AST) </content>21 IU/L<content styleCode="Italic s"> (14-36 IU/L)</content> UNK > 60 Below low <content [facility] normal styleCode="Bold"> Nhan EGFR </content>52 Medical GFR L<content Center styleCode="Italic s"> (> 60 GFR)</content> Calcium 8.4-10. <content [facility] [Mass/volume] in 2 styleCode="Bold"> [facility] Serum or Plasma Calcium Medical </content>9.8 Center MG/DL<content styleCode="Italic s"> (8.4-10.2 MG/DL)</content> Alkaline 38-126 <content [facility] phosphatase styleCode="Bold"> Nhan [Enzymatic Alkaline Medical activity/volume] Phosphatase (ALP) Cente r in Serum or Plasma </content>88 IU/L<content styleCode="Italic s"> (38-126 IU/L)</content> Alanine 7-30 <content [facility] aminotransferase styleCode="Bold"> [facility] [Enzymatic Alanine Medical activity/volume] Aminotransferase Center in Serum or Plasma (ALT) </content>25 IU/L<content styleCode="Italic s"> (7-30 IU/L)</content> Bilirubin.total 0.2-1.3 <content [facility] [Mass/volume] in styleCode="Bold"> [facility] Serum or Plasma Bilirubin Total Medical </content>0.5 Center MG/DL<content styleCode="Italic s"> (0.2-1.3 MG/DL)</content> Albumin 3.5-5.0 <content [facility] [Mass/volume] in styleCode="Bold"> [facility] Serum or Plasma Albumin Medical </content>3.8 Center G/DL<content styleCode="Italic s"> (3.5-5.0 G/DL)</content> ID Date Data Source Coagulation 03/03/2019 04:10:00 PM [facility] Rout.[id number] EDT Name Value Range Interpretation Description Data Sup porting Code Source(s) Document(s ) UNK 9.0-13.0 <content [facility] styleCode="Bold" Nhan >Protime Medical </content>11.7 Center SEC<content styleCode="Itali cs"> (9.0-13.0 SEC)</content> INR in 0.80-1.2 <content [facility] Platelet poor 0 styleCode="Bold" [facility] plasma by >INR Medical Coagulation </content>1.03 Center assay #<content styleCode="Itali cs"> (0.80-1.20 #)</content> aPTT in 25.1-36. Above high normal <content [facility] Platelet poor 5 styleCode="Bold" [facility] plasma by >Partial Medical Coagulation Thromboplastin Center assay Time </content>73.4 SEC H<content styleCode="Itali cs"> (25.1-36.5 SEC)</content> ID Date Data Source Liver 03/03/2019 05:05:00 AM EDT [facility] Profile.[id number] Name Value Range Interpretation Description Data Sup porting Code Source(s) Document(s ) Alanine 7-30 <content [facility] aminotransferase styleCode="Bold"> [facility] [Enzymatic Alanine Medical activity/volume] Aminotransferase Center in Serum or Plasma (ALT) </content>19 IU/L<content styleCode="Italic s"> (7-30 IU/L)</content> Aspartate 14-36 <content [facility] aminotransferase styleCode="Bold"> [facility] [Enzymatic Aspartate Medical activity/volume] Aminotransferase Center in Serum or Plasma (AST) </content>18 IU/L<content styleCode="Italic s"> (14-36 IU/L)</content> Alkaline 38-126 <content [facility] phosphatase styleCode="Bold"> Nhan [Enzymatic Alkaline Medical activity/volume] Phosphatase (ALP) Cente r in Serum or Plasma </content>77 IU/L<content styleCode="Italic s"> (38-126 IU/L)</content> Bilirubin.total 0.2-1.3 <content [facility] [Mass/volume] in styleCode="Bold"> [facility] Serum or Plasma Bilirubin Total Medical </content>0.6 Center MG/DL<content styleCode="Italic s"> (0.2-1.3 MG/DL)</content> Albumin 3.5-5.0 Below low <content [facility] [Mass/volume] in normal styleCode="Bold"> [facility] Serum or Plasma Albumin Medical </content>3.2 Center G/DL L<content styleCode="Italic s"> (3.5-5.0 G/DL)</content> ID Date Data Source HematologyRou.[id number] 03/03/2019 05:05:00 AM EDT [facility] nt [facility] 0400 Name Value Range Interpretation Description Data Sup porting Code Source(s) Document(s ) Leukocytes 4.4-11.0 <content [facility] [#/volume] in styleCode="Bold Nhan Blood by ">White Blood Medical Automated count Cell Count Center </content>10.00 KCUMM<content styleCode="Ital ics"> (4.4-11.0 KCUMM)</content > Erythrocytes 4.0-5.1 Below low normal <content [facility] [#/volume] in styleCode="Bold Nhan Blood by ">Red Blood Medical Automated count Cell Count Center </content>3.06 MCUMM L<content styleCode="Ital ics"> (4.0-5.1 MCUMM)</content > Hematocrit 36.0-46. Below low normal <content [facility] [Volume 0 styleCode="Bold Nhan Fraction] of ">Hematocrit Medical Blood by </content>28.5 Center Automated count % L<content styleCode="Ital ics"> (36.0-46.0 %)</content> Hemoglobin 12.3-16. Below low normal <content [facility] [Mass/volume] in 0 styleCode="Bold Nhan Blood ">Hemoglobin Medical </content>9.0 Center G/DL L<content styleCode="Ital ics"> (12.3-16.0 G/DL)</content> Erythrocyte mean 80.0-100 <content [facility] corpuscular .0 styleCode="Bold Nhan volume [Entitic ">Mean Medical volume] by Corpuscular Center Automated count Volume </content>93.1 FL<content styleCode="Ital ics"> (80.0-100.0 FL)</content> Erythrocyte mean 26.0-34. <content [facility] corpuscular 0 styleCode="Bold Nhan hemoglobin ">Mean Medical [Entitic mass] Corposcular Center by Automated Hemoglobin count </content>29.4 PG<content styleCode="Ital ics"> (26.0-34.0 PG)</content> Erythrocyte 11.5-14. Above high <content [facility] distribution 5 normal styleCode="Bold Nhan width [Ratio] by ">Red Cell Medical Automated count Distribution Center Width </content>15.9 % H<content styleCode="Ital ics"> (11.5-14.5 %)</content> Erythrocyte mean 32.0-37. Below low normal <content [facility] corpuscular 0 styleCode="Bold Nhan hemoglobin ">Mean Corpus. Medical concentration Hgb Center [Mass/volume] by Concentration Automated count (MCHC) </content>31.6 G/DL L<content styleCode="Ital ics"> (32.0-37.0 G/DL)</content> Neutrophils 36-66 Above high <content [facility] [#/volume] in normal styleCode="Bold Nhan Blood by ">Neutrophil Medical Automated count </content>83.4 Center % H<content styleCode="Ital ics"> (36-66 %)</content> Platelets 130-400 <content [facility] [#/volume] in styleCode="Bold Nhan Blood by ">Platelet Medical Automated count Count Center </content>243 KCUMM<content styleCode="Ital ics"> (130-400 KCUMM)</content > Platelet mean 8.0-11.0 Above high <content [facility] volume [Entitic normal styleCode="Bold Nhan volume] in Blood ">Mean Platelet Medical by Automated Volume Center count </content>12.1 FL H<content styleCode="Ital ics"> (8.0-11.0 FL)</content> UNK 1.0-4.8 <content [facility] styleCode="Bold Nhan ">Lymphocyte Medical Count Center </content>1.18 KCUMM<content styleCode="Ital ics"> (1.0-4.8 KCUMM)</content > UNK 1.6-7.3 Above high <content [facility] normal styleCode="Bold Nhan ">Neutrophil Medical Count Center </content>8.34 KCUMM H<content styleCode="Ital ics"> (1.6-7.3 KCUMM)</content > Lymphocytes 24.0-44. Below low normal <content [facility] [#/volume] in 0 styleCode="Bold Nhan Blood by ">Lymphocyte Medical Automated count </content>11.8 Center % L<content styleCode="Ital ics"> (24.0-44.0 %)</content> Monocytes 3.0-10.0 <content [facility] [#/volume] in styleCode="Bold Nhan Blood by ">Monocyte Medical Automated count </content>4.1 Center %<content styleCode="Ital ics"> (3.0-10.0 %)</content> UNK 0.2-0.9 <content [facility] styleCode="Bold Nhan ">Monocyte Medical Count Center </content>0.41 KCUMM<content styleCode="Ital ics"> (0.2-0.9 KCUMM)</content > UNK 0.0-0.6 <content [facility] styleCode="Bold Nhan ">Eosinophil Medical Count Center </content>0.00 KCUMM<content styleCode="Ital ics"> (0.0-0.6 KCUMM)</content > Basophils 0.0-1.0 <content [facility] [#/volume] in styleCode="Bold Nhan Blood by ">Basophil Medical Automated count </content>0.0 Center %<content styleCode="Ital ics"> (0.0-1.0 %)</content> Eosinophils 0-5.0 <content [facility] [#/volume] in styleCode="Bold Nhan Blood by ">Eosinophil Medical Automated count </content>0.0 Center %<content styleCode="Ital ics"> (0-5.0 %)</content> UNK 0.0 Above high <content [facility] normal styleCode="Bold Nhan ">Nucleated Red Medical Blood Cell Center Count </content>0.02 KCUMM H<content styleCode="Ital ics"> (0.0 KCUMM)</content > UNK 0.0-0.3 <content [facility] styleCode="Bold Nhan ">Basophil Medical Count Center </content>0.00 KCUMM<content styleCode="Ital ics"> (0.0-0.3 KCUMM)</content > UNK 0 Above high <content [facility] normal styleCode="Bold Nhan ">Nucleated Red Medical Blood Cell Center </content>0.2 /100 H<content styleCode="Ital ics"> (0 /100)</content> UNK 0-0.1 <content [facility] styleCode="Bold Nhan ">Immature Medical Granulocyte Center Count </content>0.07 KCUMM<content styleCode="Ital ics"> (0-0.1 KCUMM)</content > UNK < 1 <content [facility] styleCode="Bold Nhan ">Immature Medical Granulocyte Center Ratio </content>0.7 %<content styleCode="Ital ics"> (< 1 %)</content> ID Date Data Source GFR(Creatinine).[id number] 03/03/2019 05:05:00 AM EDT [facility] 0-0400 Name Value Range Interpretation Code Description Data Ashlee rce(s) Supporting Document(s ) UNK > 60 Below low normal <content [facility] styleCode="Bold"> Medical Cent er EGFR </content>57 GFR L<content styleCode="Italic s"> (> 60 GFR)</content> ID Date Data Source MOI.[id number] 03/03/2019 05:05:00 AM EDT [facility] -0400 Name Value Range Interpretation Description Data Sup porting Code Source(s) Document(s ) UNK >= 1.0 <content [facility] styleCode="Mike Nhan d">AG Ratio Medical </content>1.0 Center <content styleCode="Evelyn lics"> (>= 1.0 )</content> Magnesium 1.6-2.3 <content [facility] [Mass/volume] styleCode="Mike Nhan in Serum or d">Magnesium Medical Plasma </content>2.3 Center MG/DL<content styleCode="Evelyn lics"> (1.6-2.3 MG/DL)</conten t> UNK 2.3-3.5 <content [facility] styleCode="Mike Nhan d">Globulin Medical </content>3.3 Center G/DL<content styleCode="Evelyn lics"> (2.3-3.5 G/DL)</content > Protein 6.3-8.2 <content [facility] [Mass/volume] styleCode="Mike Nhan in Serum or d">Total Medical Plasma Protein Center </content>6.5 G/DL<content styleCode="Evelyn lics"> (6.3-8.2 G/DL)</content > Phosphate 2.5-4.5 Above high normal <content [facility] [Mass/volume] styleCode="Mike Nhan in Serum or d">Phosphorus Medical Plasma </content>4.8 Center MG/DL H<content styleCode="Evelyn lics"> (2.5-4.5 MG/DL)</conten t> ID Date Data Source [employer].[id number] 03/03/2019 05:05:00 AM EDT [facility] -0400 Name Value Range Interpretation Description Data Sup porting Code Source(s) Document(s ) Troponin < 0.034 Above upper panic <content [facility] I.cardiac limits styleCode="Bold Nhan [Mass/volume ">Troponin I Medical ] in Serum </content><cont Center or Plasma ent styleCode="Bold ">0.041 NG/ML HH</content><co ntent styleCode="Ital ics"> (< 0.034 NG/ML)</content > ID Date Data Source [facility].[id number] 03/03/2019 05:05:00 AM EDT [facility] Name Value Range Interpretation Description Data Sup porting Code Source(s) Document(s ) Sodium 137-145 <content [facility] [Moles/volume] in styleCode="Bold"> [facility] Serum or Plasma Sodium Medical </content>140 Center MEQ/L<content styleCode="Italic s"> (137-145 MEQ/L)</content> UNK 7-17 Above high <content [facility] normal styleCode="Bold"> Nhan BUN </content>31 Medical MG/DL H<content Center styleCode="Italic s"> (7-17 MG/DL)</content> Chloride 98-107 <content [facility] [Moles/volume] in styleCode="Bold"> [facility] Serum or Plasma Chloride Medical </content>104 Center MEQ/L<content styleCode="Italic s"> (98-107 MEQ/L)</content> Carbon dioxide, 22-30 <content [facility] total styleCode="Bold"> Nhan [Moles/volume] in Carbon Dioxide Medical Serum or Plasma </content>29 Center MEQ/L<content styleCode="Italic s"> (22-30 MEQ/L)</content> Potassium 3.5-5.3 <content [facility] [Moles/volume] in styleCode="Bold"> [facility] Serum or Plasma Potassium Medical </content>4.9 Center MEQ/L<content styleCode="Italic s"> (3.5-5.3 MEQ/L)</content> Glucose 74-106 Above high <content [facility] [Mass/volume] in normal styleCode="Bold"> [facility] Serum or Plasma Glucose Medical </content>133 Center MG/DL H<content styleCode="Italic s"> (74-106 MG/DL)</content> Calcium 8.4-10. <content [facility] [Mass/volume] in 2 styleCode="Bold"> [facility] hs Serum or Plasma Calcium Medical </content>9.3 Center MG/DL<content styleCode="Italic s"> (8.4-10.2 MG/DL)</content> Creatinine 0.5-1.3 <content [facility] [Mass/volume] in styleCode="Bold"> [facility] hs Serum or Plasma Creatinine Medical </content>1.2 Center MG/DL<content styleCode="Italic s"> (0.5-1.3 MG/DL)</content> UNK > 60 Below low <content [facility] normal styleCode="Bold"> Nhan EGFR </content>57 Medical GFR L<content Center styleCode="Italic s"> (> 60 GFR)</content> Aspartate 14-36 <content [facility] aminotransferase styleCode="Bold"> [facility] hs [Enzymatic Aspartate Medical activity/volume] Aminotransferase Center in Serum or Plasma (AST) </content>18 IU/L<content styleCode="Italic s"> (14-36 IU/L)</content> Alanine 7-30 <content [facility] aminotransferase styleCode="Bold"> [facility] [Enzymatic Alanine Medical activity/volume] Aminotransferase Center in Serum or Plasma (ALT) </content>19 IU/L<content styleCode="Italic s"> (7-30 IU/L)</content> Bilirubin.total 0.2-1.3 <content [facility] [Mass/volume] in styleCode="Bold"> [facility] hs Serum or Plasma Bilirubin Total Medical </content>0.6 Center MG/DL<content styleCode="Italic s"> (0.2-1.3 MG/DL)</content> Alkaline 38-126 <content [facility] phosphatase styleCode="Bold"> Nhan [Enzymatic Alkaline Medical activity/volume] Phosphatase (ALP) Cente r in Serum or Plasma </content>77 IU/L<content styleCode="Italic s"> (38-126 IU/L)</content> Albumin 3.5-5.0 Below low <content [facility] [Mass/volume] in normal styleCode="Bold"> [facility] Serum or Plasma Albumin Medical </content>3.2 Center G/DL L<content styleCode="Italic s"> (3.5-5.0 G/DL)</content> ID Date Data Source Liver 03/02/2019 06:15:00 AM EDT [facility] Profile.[id number] Name Value Range Interpretation Description Data Sup porting Code Source(s) Document(s ) Aspartate 14-36 <content [facility] aminotransferase styleCode="Bold"> [facility] [Enzymatic Aspartate Medical activity/volume] Aminotransferase Center in Serum or Plasma (AST) </content>22 IU/L<content styleCode="Italic s"> (14-36 IU/L)</content> Alanine 7-30 <content [facility] aminotransferase styleCode="Bold"> [facility] hs [Enzymatic Alanine Medical activity/volume] Aminotransferase Center in Serum or Plasma (ALT) </content>17 IU/L<content styleCode="Italic s"> (7-30 IU/L)</content> Alkaline 38-126 <content [facility] phosphatase styleCode="Bold"> [facility] [Enzymatic Alkaline Medical activity/volume] Phosphatase (ALP) Cente r in Serum or Plasma </content>81 IU/L<content styleCode="Italic s"> (38-126 IU/L)</content> Bilirubin.total 0.2-1.3 <content [facility] [Mass/volume] in styleCode="Bold"> [facility] hs Serum or Plasma Bilirubin Total Medical </content>0.7 Center MG/DL<content styleCode="Italic s"> (0.2-1.3 MG/DL)</content> Albumin 3.5-5.0 <content [facility] [Mass/volume] in styleCode="Bold"> [facility] hs Serum or Plasma Albumin Medical </content>3.5 Center G/DL<content styleCode="Italic s"> (3.5-5.0 G/DL)</content> ID Date Data Source Hormones.[id number] 03/02/2019 06:15:00 AM EDT Dinesh t [facility] Name Value Range Interpretation Description Data Sup porting Code Source(s) Document(s ) Thyrotropin 0.465-4. <content [facility] [Units/volume] 68 styleCode="Mike Nhan in Serum or d">Thyroid Medical Plasma by Stimulating Center Detection Hormone limit <= 0.05 </content>0.51 mIU/L 3 MIU/L<content styleCode="Evelyn lics"> (0.465-4.68 MIU/L)</conten t> ID Date Data Source HematologyRou.[id number] 03/02/2019 06:15:00 AM EDT [facility] 0400 Name Value Range Interpretation Description Data Sup porting Code Source(s) Document(s ) Erythrocytes 4.0-5.1 Below low normal <content [facility] [#/volume] in styleCode="Bold Nhan Blood by ">Red Blood Medical Automated count Cell Count Center </content>3.15 MCUMM L<content styleCode="Ital ics"> (4.0-5.1 MCUMM)</content > Leukocytes 4.4-11.0 Above high <content [facility] [#/volume] in normal styleCode="Bold Nhan Blood by ">White Blood Medical Automated count Cell Count Center </content>12.09 KCUMM H<content styleCode="Ital ics"> (4.4-11.0 KCUMM)</content > Hemoglobin 12.3-16. Below low normal <content [facility] [Mass/volume] in 0 styleCode="Bold Nhan Blood ">Hemoglobin Medical </content>9.2 Center G/DL L<content styleCode="Ital ics"> (12.3-16.0 G/DL)</content> Erythrocyte mean 80.0-100 <content [facility] corpuscular .0 styleCode="Bold Nhan volume [Entitic ">Mean Medical volume] by Corpuscular Center Automated count Volume </content>92.7 FL<content styleCode="Ital ics"> (80.0-100.0 FL)</content> Hematocrit 36.0-46. Below low normal <content [facility] [Volume 0 styleCode="Bold Nhan Fraction] of ">Hematocrit Medical Blood by </content>29.2 Center Automated count % L<content styleCode="Ital ics"> (36.0-46.0 %)</content> Erythrocyte mean 26.0-34. <content [facility] corpuscular 0 styleCode="Bold Nhan hemoglobin ">Mean Medical [Entitic mass] Corposcular Center by Automated Hemoglobin count </content>29.2 PG<content styleCode="Ital ics"> (26.0-34.0 PG)</content> Erythrocyte mean 32.0-37. Below low normal <content [facility] corpuscular 0 styleCode="Bold Nhan hemoglobin ">Mean Corpus. Medical concentration Hgb Center [Mass/volume] by Concentration Automated count (MCHC) </content>31.5 G/DL L<content styleCode="Ital ics"> (32.0-37.0 G/DL)</content> Erythrocyte 11.5-14. Above high <content [facility] distribution 5 normal styleCode="Bold Nhan width [Ratio] by ">Red Cell Medical Automated count Distribution Center Width </content>15.9 % H<content styleCode="Ital ics"> (11.5-14.5 %)</content> Platelet mean 8.0-11.0 Above high <content [facility] volume [Entitic normal styleCode="Bold Nhan volume] in Blood ">Mean Platelet Medical by Automated Volume Center count </content>11.9 FL H<content styleCode="Ital ics"> (8.0-11.0 FL)</content> Platelets 130-400 <content [facility] [#/volume] in styleCode="Bold Nhan Blood by ">Platelet Medical Automated count Count Center </content>254 KCUMM<content styleCode="Ital ics"> (130-400 KCUMM)</content > Lymphocytes 24.0-44. Below low normal <content [facility] [#/volume] in 0 styleCode="Bold Nhan Blood by ">Lymphocyte Medical Automated count </content>9.5 % Center L<content styleCode="Ital ics"> (24.0-44.0 %)</content> Neutrophils 36-66 Above high <content [facility] [#/volume] in normal styleCode="Bold Nhan Blood by ">Neutrophil Medical Automated count </content>86.4 Center % H<content styleCode="Ital ics"> (36-66 %)</content> UNK 1.6-7.3 Above high <content [facility] normal styleCode="Bold Nhan ">Neutrophil Medical Count Center </content>10.45 KCUMM H<content styleCode="Ital ics"> (1.6-7.3 KCUMM)</content > Monocytes 3.0-10.0 <content [facility] [#/volume] in styleCode="Bold Nhan Blood by ">Monocyte Medical Automated count </content>3.2 Center %<content styleCode="Ital ics"> (3.0-10.0 %)</content> UNK 1.0-4.8 <content [facility] styleCode="Bold Nhan ">Lymphocyte Medical Count Center </content>1.15 KCUMM<content styleCode="Ital ics"> (1.0-4.8 KCUMM)</content > Eosinophils 0-5.0 <content [facility] [#/volume] in styleCode="Bold Nhan Blood by ">Eosinophil Medical Automated count </content>0.1 Center %<content styleCode="Ital ics"> (0-5.0 %)</content> UNK 0.0-0.6 <content [facility] styleCode="Bold Nhan ">Eosinophil Medical Count Center </content>0.01 KCUMM<content styleCode="Ital ics"> (0.0-0.6 KCUMM)</content > UNK 0.2-0.9 <content [facility] styleCode="Bold Nhan ">Monocyte Medical Count Center </content>0.39 KCUMM<content styleCode="Ital ics"> (0.2-0.9 KCUMM)</content > UNK 0 <content [facility] styleCode="Bold Nhan ">Nucleated Red Medical Blood Cell Center </content>0.0 /100<content styleCode="Ital ics"> (0 /100)</content> UNK 0.0-0.3 <content [facility] styleCode="Bold Nhan ">Basophil Medical Count Center </content>0.01 KCUMM<content styleCode="Ital ics"> (0.0-0.3 KCUMM)</content > Basophils 0.0-1.0 <content [facility] [#/volume] in styleCode="Bold Nhan Blood by ">Basophil Medical Automated count </content>0.1 Center %<content styleCode="Ital ics"> (0.0-1.0 %)</content> UNK 0.0 <content [facility] styleCode="Bold Nhan ">Nucleated Red Medical Blood Cell Center Count </content>0.00 KCUMM<content styleCode="Ital ics"> (0.0 KCUMM)</content > UNK 0-0.1 <content [facility] styleCode="Bold Nhan ">Immature Medical Granulocyte Center Count </content>0.08 KCUMM<content styleCode="Ital ics"> (0-0.1 KCUMM)</content > UNK < 1 <content [facility] styleCode="Bold Nhan ">Immature Medical Granulocyte Center Ratio </content>0.7 %<content styleCode="Ital ics"> (< 1 %)</content> ID Date Data Source GFR(Creatinine).[id number] 03/02/2019 06:15:00 AM EDT [facility] 0-0400 Name Value Range Interpretation Code Description Data Ashlee rce(s) Supporting Document(s ) UNK > 60 <content [facility] styleCode="Bold"> Medical Cent er EGFR </content>63 GFR<content styleCode="Italic s"> (> 60 GFR)</content> ID Date Data Source CHMROUTINECCDA.[id number] 03/02/2019 06:15:00 AM EDT [facility] -0400 Name Value Range Interpretation Description Data Sup porting Code Source(s) Document(s ) UNK >= 1.0 <content styleCode="Mike Nhan d">AG Ratio Medical </content>1.0 Center <content styleCode="Evelyn lics"> (>= 1.0 )</content> UNK 2.3-3.5 <content [facility] styleCode="Mike Nhan d">Globulin Medical </content>3.5 Center G/DL<content styleCode="Evelyn lics"> (2.3-3.5 G/DL)</content > Magnesium 1.6-2.3 <content [facility] [Mass/volume] styleCode="Mike Nhan in Serum or d">Magnesium Medical Plasma </content>2.3 Center MG/DL<content styleCode="Evelyn lics"> (1.6-2.3 MG/DL)</conten t> Phosphate 2.5-4.5 <content [facility] [Mass/volume] styleCode="Mike Nhan in Serum or d">Phosphorus Medical Plasma </content>3.8 Center MG/DL<content styleCode="Evelyn lics"> (2.5-4.5 MG/DL)</conten t> Protein 6.3-8.2 <content [facility] [Mass/volume] styleCode="Mike Nhan in Serum or d">Total Medical Plasma Protein Center </content>7.0 G/DL<content styleCode="Evelyn lics"> (6.3-8.2 G/DL)</content > ID Date Data Source [facility].[id number] 03/02/2019 06:15:00 AM EDT [facility] Name Value Range Interpretation Description Data Sup porting Code Source(s) Document(s ) Sodium 137-145 <content Saint [Moles/volume] in styleCode="Bold"> [facility] Serum or Plasma Sodium Medical </content>139 Center MEQ/L<content styleCode="Italic s"> (137-145 MEQ/L)</content> Chloride 98-107 <content [facility] [Moles/volume] in styleCode="Bold"> [facility] Serum or Plasma Chloride Medical </content>104 Center MEQ/L<content styleCode="Italic s"> (98-107 MEQ/L)</content> Potassium 3.5-5.3 <content [facility] [Moles/volume] in styleCode="Bold"> [facility] Serum or Plasma Potassium Medical </content>5.0 Center MEQ/L<content styleCode="Italic s"> (3.5-5.3 MEQ/L)</content> Carbon dioxide, 22-30 <content [facility] total styleCode="Bold"> Nhan [Moles/volume] in Carbon Dioxide Medical Serum or Plasma </content>28 Center MEQ/L<content styleCode="Italic s"> (22-30 MEQ/L)</content> UNK 7-17 Above high <content [facility] normal styleCode="Bold"> Nhan BUN </content>30 Medical MG/DL H<content Center styleCode="Italic s"> (7-17 MG/DL)</content> Creatinine 0.5-1.3 <content [facility] [Mass/volume] in styleCode="Bold"> [facility] Serum or Plasma Creatinine Medical </content>1.1 Center MG/DL<content styleCode="Italic s"> (0.5-1.3 MG/DL)</content> Aspartate 14-36 <content [facility] aminotransferase styleCode="Bold"> [facility] [Enzymatic Aspartate Medical activity/volume] Aminotransferase Center in Serum or Plasma (AST) </content>22 IU/L<content styleCode="Italic s"> (14-36 IU/L)</content> Glucose 74-106 Above high <content [facility] [Mass/volume] in normal styleCode="Bold"> [facility] Serum or Plasma Glucose Medical </content>124 Center MG/DL H<content styleCode="Italic s"> (74-106 MG/DL)</content> Calcium 8.4-10. <content [facility] [Mass/volume] in 2 styleCode="Bold"> [facility] Serum or Plasma Calcium Medical </content>9.5 Center MG/DL<content styleCode="Italic s"> (8.4-10.2 MG/DL)</content> UNK > 60 <content [facility] styleCode="Bold"> Nhan EGFR </content>63 Medical GFR<content Center styleCode="Italic s"> (> 60 GFR)</content> Bilirubin.total 0.2-1.3 <content [facility] [Mass/volume] in styleCode="Bold"> [facility] Serum or Plasma Bilirubin Total Medical </content>0.7 Center MG/DL<content styleCode="Italic s"> (0.2-1.3 MG/DL)</content> Alkaline 38-126 <content [facility] phosphatase styleCode="Bold"> Nhan [Enzymatic Alkaline Medical activity/volume] Phosphatase (ALP) Cente r in Serum or Plasma </content>81 IU/L<content styleCode="Italic s"> (38-126 IU/L)</content> Alanine 7-30 <content [facility] aminotransferase styleCode="Bold"> [facility] [Enzymatic Alanine Medical activity/volume] Aminotransferase Center in Serum or Plasma (ALT) </content>17 IU/L<content styleCode="Italic s"> (7-30 IU/L)</content> Albumin 3.5-5.0 <content [facility] [Mass/volume] in styleCode="Bold"> [facility] Serum or Plasma Albumin Medical </content>3.5 Center G/DL<content styleCode="Italic s"> (3.5-5.0 G/DL)</content> ID Date Data Source Liver 03/01/2019 05:20:00 AM EDT [facility] Profile.[id number] Name Value Range Interpretation Description Data Sup porting Code Source(s) Document(s ) Aspartate 14-36 <content [facility] aminotransferase styleCode="Bold"> [facility] [Enzymatic Aspartate Medical activity/volume] Aminotransferase Center in Serum or Plasma (AST) </content>23 IU/L<content styleCode="Italic s"> (14-36 IU/L)</content> Alanine 7-30 <content [facility] aminotransferase styleCode="Bold"> [facility] [Enzymatic Alanine Medical activity/volume] Aminotransferase Center in Serum or Plasma (ALT) </content>17 IU/L<content styleCode="Italic s"> (7-30 IU/L)</content> Alkaline 38-126 <content [facility] phosphatase styleCode="Bold"> Nhan [Enzymatic Alkaline Medical activity/volume] Phosphatase (ALP) Cente r in Serum or Plasma </content>87 IU/L<content styleCode="Italic s"> (38-126 IU/L)</content> Bilirubin.total 0.2-1.3 <content [facility] [Mass/volume] in styleCode="Bold"> [facility] Serum or Plasma Bilirubin Total Medical </content>0.4 Center MG/DL<content styleCode="Italic s"> (0.2-1.3 MG/DL)</content> Albumin 3.5-5.0 <content [facility] [Mass/volume] in styleCode="Bold"> [facility] Serum or Plasma Albumin Medical </content>3.6 Center G/DL<content styleCode="Italic s"> (3.5-5.0 G/DL)</content> ID Date Data Source HematologyRou.[id number] 03/01/2019 05:20:00 AM EDT [facility] 0400 Name Value Range Interpretation Description Data Sup porting Code Source(s) Document(s ) Leukocytes 4.4-11.0 Above high <content [facility] [#/volume] in normal styleCode="Bold Nhan Blood by ">White Blood Medical Automated count Cell Count Center </content>15.29 KCUMM H<content styleCode="Ital ics"> (4.4-11.0 KCUMM)</content > Erythrocytes 4.0-5.1 Below low normal <content [facility] [#/volume] in styleCode="Bold Nhan Blood by ">Red Blood Medical Automated count Cell Count Center </content>3.08 MCUMM L<content styleCode="Ital ics"> (4.0-5.1 MCUMM)</content > Hemoglobin 12.3-16. Below low normal <content [facility] [Mass/volume] in 0 styleCode="Bold Nhan Blood ">Hemoglobin Medical </content>9.1 Center G/DL L<content styleCode="Ital ics"> (12.3-16.0 G/DL)</content> Erythrocyte mean 80.0-100 <content [facility] corpuscular .0 styleCode="Bold [facility] volume [Entitic ">Mean Medical volume] by Corpuscular Center Automated count Volume </content>93.5 FL<content styleCode="Ital ics"> (80.0-100.0 FL)</content> Erythrocyte mean 26.0-34. <content [facility] corpuscular 0 styleCode="Bold Nhan hemoglobin ">Mean Medical [Entitic mass] Corposcular Center by Automated Hemoglobin count </content>29.5 PG<content styleCode="Ital ics"> (26.0-34.0 PG)</content> Hematocrit 36.0-46. Below low normal <content [facility] [Volume 0 styleCode="Bold Nhan Fraction] of ">Hematocrit Medical Blood by </content>28.8 Center Automated count % L<content styleCode="Ital ics"> (36.0-46.0 %)</content> Erythrocyte 11.5-14. Above high <content [facility] distribution 5 normal styleCode="Bold Nhan width [Ratio] by ">Red Cell Medical Automated count Distribution Center Width </content>15.9 % H<content styleCode="Ital ics"> (11.5-14.5 %)</content> Erythrocyte mean 32.0-37. Below low normal <content [facility] corpuscular 0 styleCode="Bold Nhan hemoglobin ">Mean Corpus. Medical concentration Hgb Center [Mass/volume] by Concentration Automated count (MCHC) </content>31.6 G/DL L<content styleCode="Ital ics"> (32.0-37.0 G/DL)</content> Platelets 130-400 <content [facility] [#/volume] in styleCode="Bold Nhan Blood by ">Platelet Medical Automated count Count Center </content>245 KCUMM<content styleCode="Ital ics"> (130-400 KCUMM)</content > Platelet mean 8.0-11.0 Above high <content [facility] volume [Entitic normal styleCode="Bold Nhan volume] in Blood ">Mean Platelet Medical by Automated Volume Center count </content>11.7 FL H<content styleCode="Ital ics"> (8.0-11.0 FL)</content> Neutrophils 36-66 Above high <content [facility] [#/volume] in normal styleCode="Bold Nhan Blood by ">Neutrophil Medical Automated count </content>90.6 Center % H<content styleCode="Ital ics"> (36-66 %)</content> UNK 1.6-7.3 Above high <content [facility] normal styleCode="Bold Nhan ">Neutrophil Medical Count Center </content>13.86 KCUMM H<content styleCode="Ital ics"> (1.6-7.3 KCUMM)</content > UNK 1.0-4.8 Below low normal <content [facility] styleCode="Bold Nhan ">Lymphocyte Medical Count Center </content>0.88 KCUMM L<content styleCode="Ital ics"> (1.0-4.8 KCUMM)</content > Lymphocytes 24.0-44. Below low normal <content [facility] [#/volume] in 0 styleCode="Bold Nhan Blood by ">Lymphocyte Medical Automated count </content>5.8 % Center L<content styleCode="Ital ics"> (24.0-44.0 %)</content> Monocytes 3.0-10.0 Below low normal <content [facility] [#/volume] in styleCode="Bold Nhan Blood by ">Monocyte Medical Automated count </content>2.6 % Center L<content styleCode="Ital ics"> (3.0-10.0 %)</content> UNK 0.2-0.9 <content [facility] styleCode="Bold Nhan ">Monocyte Medical Count Center </content>0.39 KCUMM<content styleCode="Ital ics"> (0.2-0.9 KCUMM)</content > Eosinophils 0-5.0 <content [facility] [#/volume] in styleCode="Bold Nhan Blood by ">Eosinophil Medical Automated count </content>0.0 Center %<content styleCode="Ital ics"> (0-5.0 %)</content> UNK 0.0-0.6 <content [facility] styleCode="Bold Nhan ">Eosinophil Medical Count Center </content>0.00 KCUMM<content styleCode="Ital ics"> (0.0-0.6 KCUMM)</content > Basophils 0.0-1.0 <content [facility] [#/volume] in styleCode="Bold Nhan Blood by ">Basophil Medical Automated count </content>0.1 Center %<content styleCode="Ital ics"> (0.0-1.0 %)</content> UNK 0.0-0.3 <content [facility] styleCode="Bold Nhan ">Basophil Medical Count Center </content>0.02 KCUMM<content styleCode="Ital ics"> (0.0-0.3 KCUMM)</content > UNK 0.0 <content [facility] styleCode="Bold Nhan ">Nucleated Red Medical Blood Cell Center Count </content>0.00 KCUMM<content styleCode="Ital ics"> (0.0 KCUMM)</content > UNK 0 <content [facility] styleCode="Bold Nhan ">Nucleated Red Medical Blood Cell Center </content>0.0 /100<content styleCode="Ital ics"> (0 /100)</content> UNK 0-0.1 Above high <content [facility] normal styleCode="Bold Nhan ">Immature Medical Granulocyte Center Count </content>0.14 KCUMM H<content styleCode="Ital ics"> (0-0.1 KCUMM)</content > UNK < 1 <content [facility] styleCode="Bold Nhan ">Immature Medical Granulocyte Center Ratio </content>0.9 %<content styleCode="Ital ics"> (< 1 %)</content> ID Date Data Source [facility].[id number] 03/01/2019 05:20:00 AM EDT [facility] -0400 Name Value Range Interpretation Description Data Sup porting Code Source(s) Document(s ) UNK >= 1.0 Below low normal <content [facility] styleCode="Mike Nhan d">AG Ratio Medical </content>0.9 Center L<content styleCode="Evelyn lics"> (>= 1.0 )</content> UNK 2.3-3.5 Above high normal <content [facility] styleCode="Mike Nhan d">Globulin Medical </content>3.8 Center G/DL H<content styleCode="Evelyn lics"> (2.3-3.5 G/DL)</content > Phosphate 2.5-4.5 <content [facility] [Mass/volume] styleCode="Mike Nhan in Serum or d">Phosphorus Medical Plasma </content>3.7 Center MG/DL<content styleCode="Evelyn lics"> (2.5-4.5 MG/DL)</conten t> Protein 6.3-8.2 <content [facility] [Mass/volume] styleCode="Mike Nhan in Serum or d">Total Medical Plasma Protein Center </content>7.4 G/DL<content styleCode="Evelyn lics"> (6.3-8.2 G/DL)</content > Magnesium 1.6-2.3 <content [facility] [Mass/volume] styleCode="Mike Nhan in Serum or d">Magnesium Medical Plasma </content>2.3 Center MG/DL<content styleCode="Evelyn lics"> (1.6-2.3 MG/DL)</conten t> ID Date Data Source [facility].[id number] 03/01/2019 05:20:00 AM EDT [facility] -0400 Name Value Range Interpretation Description Data Sup porting Code Source(s) Document(s ) Troponin < 0.034 Above upper panic <content Saint I.cardiac limits styleCode="Bold Nhan [Mass/volume ">Troponin I Medical ] in Serum </content><cont Center or Plasma ent styleCode="Bold ">0.068 NG/ML HH</content><co ntent styleCode="Ital ics"> (< 0.034 NG/ML)</content > ID Date Data Source [facility].[id number] 02/28/2019 05:35:00 AM EDT [facility] -0400 Name Value Range Interpretation Description Data Sup porting Code Source(s) Document(s ) Troponin < 0.034 Above upper panic <content [facility] I.cardiac limits styleCode="Bold Nhan [Mass/volume ">Troponin I Medical ] in Serum </content><cont Center or Plasma ent styleCode="Bold ">0.065 NG/ML HH</content><co ntent styleCode="Ital ics"> (< 0.034 NG/ML)</content > ID Date Data Source [facility].[id number] 02/27/2019 12:47:00 PM EDT [facility] -0400 Name Value Range Interpretation Description Data Sup porting Code Source(s) Document(s ) Troponin < 0.034 Above upper panic <content [facility] I.cardiac limits styleCode="Bold Nhan [Mass/volume ">Troponin I Medical ] in Serum </content><cont Center or Plasma ent styleCode="Bold ">0.081 NG/ML HH</content><co ntent styleCode="Ital ics"> (< 0.034 NG/ML)</content > ID Date Data Source Urinalysis.[id number] 02/27/2019 06:31:00 AM EDT [facility] 0 Name Value Range Interpretation Description Data Sup porting Code Source(s) Document(s ) Color of Urine YELLOW <content [facility] styleCode="Mike Nhan d">Color, Medical Urine Center </content>YELL OW <content styleCode="Evelyn lics"> (YELLOW )</content> UNK CLEAR <content [facility] styleCode="Mike Nhan d">Urine Medical Clarity Center </content>Sl CLOUDY <content styleCode="Evelyn lics"> (CLEAR )</content> UNK NEGATIVE <content [facility] styleCode="Mike Nhan d">Urine Medical Bilirubin Center </content>NEGA TIVE <content styleCode="Evelyn lics"> (NEGATIVE )</content> Glucose NEGATIVE <content [facility] [Mass/volume] styleCode="Mike Nhan in Urine by d">Urine Medical Test strip Glucose Center </content>NEGA TIVE MG/DL<content styleCode="Evelyn lics"> (NEGATIVE MG/DL)</conten t> Ketones NEGATIVE <content [facility] [Mass/volume] styleCode="Mike Nhan in Urine by d">Urine Medical Test strip Ketone Center </content>NEGA TIVE MG/DL<content styleCode="Evelyn lics"> (NEGATIVE MG/DL)</conten t> Hemoglobin NEGATIVE <content [facility] [Presence] in styleCode="Mike Nhan Urine by Test d">Urine Blood Medical strip </content>TRAC Center E <content styleCode="Evelyn lics"> (NEGATIVE )</content> Specific 1.015-1.02 <content [facility] gravity of 5 styleCode="Mike Nhan Urine by Test d">Urine Medical strip Specific Center [place] </content>1.02 5 <content styleCode="Evelyn lics"> (1.015-1.025 )</content> Protein NEGATIVE <content [facility] [Mass/volume] styleCode="Mike Nhan in Urine by d">Urine Medical Test strip Protein Center </content>TRAC E MG/DL<content styleCode="Evelyn lics"> (NEGATIVE MG/DL)</conten t> pH of Urine by 4.5-8.0 <content [facility] Test strip styleCode="Mike Nhan d">Urine pH Medical </content>6.0 Center <content styleCode="Evelyn lics"> (4.5-8.0 )</content> Urobilinogen 0.2-1.0 <content [facility] [Units/volume] styleCode="Mike Nhan in Urine by d">Urine Medical Test strip Urobilinogen Center </content>0.2 MG/DL<content styleCode="Evelyn lics"> (0.2-1.0 MG/DL)</conten t> Nitrite NEGATIVE <content [facility] [Presence] in styleCode="Mike Nhan Urine by Test d">Urine Medical strip Nitrite Center </content>NEGA TIVE <content styleCode="Evelyn lics"> (NEGATIVE )</content> Leukocyte NEGATIVE <content [facility] esterase styleCode="Mike Nhan [Presence] in d">Urine Medical Urine by Test Leukocyte Center strip </content>NEGA TIVE <content styleCode="Evelyn lics"> (NEGATIVE )</content> UNK 0-3 <content [facility] styleCode="Mike Nhan d">Urine White Medical Blood Cell Center </content>0-3 HPF<content styleCode="Evelyn lics"> (0-3 HPF)</content> UNK 0-3 <content Saint styleCode="Mike Nhan d">Urine Red Medical Blood Cell Center </content>3-5 HPF<content styleCode="Evelyn lics"> (0-3 HPF)</content> UNK <content [facility] styleCode="Mike Nhan d">Epithelial Medical Cell Center </content>2-5 LPF (Reference Range: not available)<br/ > UNK NEGATIVE <content [facility] styleCode="Mike Nhan d">Urine Medical Bacteria Center </content>MODE RATE HPF<content styleCode="Evelyn lics"> (NEGATIVE HPF)</content> ID Date Data Source LIPID.[id number] 02/27/2019 02:05:00 AM EDT [facility] Name Value Range Interpretation Description Data Sup porting Code Source(s) Document(s ) Triglyceride < 150 <content Saint [Mass/volume] in styleCode="Mike Nhan Serum or Plasma d">Triglycerid Medical es Center </content>85 MG/DL<content styleCode="Evelyn lics"> (< 150 MG/DL)</conten t> Cholesterol -<200 <content [facility] [Mass/volume] in styleCode="Mike Nhan Serum or Plasma d">Cholesterol Medical </content>194 Center MG/DL<content styleCode="Evelyn lics"> (-<200 MG/DL)</conten t> UNK < 100 Above high normal <content Saint styleCode="Mike Nhan d">LDL-Cholest Medical ray Center </content>106 MG/DL H<content styleCode="Evelyn lics"> (< 100 MG/DL)</conten t> UNK > 60 <content Saint styleCode="Mike Nhan d">HDL- Medical Cholesterol Center </content>71 MG/DL<content styleCode="Evelyn lics"> (> 60 MG/DL)</conten t> ID Date Data Source [facility].[id number] 02/27/2019 02:05:00 AM EDT [facility] -0400 Name Value Range Interpretation Description Data Sup porting Code Source(s) Document(s ) Troponin < 0.034 Above upper panic <content [facility] I.cardiac limits styleCode="Bold Nhan [Mass/volume ">Troponin I Medical ] in Serum </content><cont Center or Plasma ent styleCode="Bold ">0.051 NG/ML HH</content><co ntent styleCode="Ital ics"> (< 0.034 NG/ML)</content > ID Date Data Source HematologyRou.[id number] 02/27/2019 02:05:00 AM EDT [facility] 0400 Name Value Range Interpretation Description Data Sup porting Code Source(s) Document(s ) Hemoglobin 12.3-16. Below low normal <content Saint [Mass/volume] in 0 styleCode="Bold Nhan Blood ">Hemoglobin Medical </content>10.1 Center G/DL L<content styleCode="Ital ics"> (12.3-16.0 G/DL)</content> Erythrocytes 4.0-5.1 Below low normal <content [facility] [#/volume] in styleCode="Bold Nhan Blood by ">Red Blood Medical Automated count Cell Count Center </content>3.42 MCUMM L<content styleCode="Ital ics"> (4.0-5.1 MCUMM)</content > Leukocytes 4.4-11.0 <content [facility] [#/volume] in styleCode="Bold Nhan Blood by ">White Blood Medical Automated count Cell Count Center </content>6.60 KCUMM<content styleCode="Ital ics"> (4.4-11.0 KCUMM)</content > Hematocrit 36.0-46. Below low normal <content [facility] [Volume 0 styleCode="Bold Nhan Fraction] of ">Hematocrit Medical Blood by </content>31.8 Center Automated count % L<content styleCode="Ital ics"> (36.0-46.0 %)</content> Erythrocyte mean 26.0-34. <content [facility] corpuscular 0 styleCode="Bold Nhan hemoglobin ">Mean Medical [Entitic mass] Corposcular Center by Automated Hemoglobin count </content>29.5 PG<content styleCode="Ital ics"> (26.0-34.0 PG)</content> Erythrocyte mean 80.0-100 <content [facility] corpuscular .0 styleCode="Bold Nhan volume [Entitic ">Mean Medical volume] by Corpuscular Center Automated count Volume </content>93.0 FL<content styleCode="Ital ics"> (80.0-100.0 FL)</content> Platelet mean 8.0-11.0 Above high <content [facility] volume [Entitic normal styleCode="Bold Nhan volume] in Blood ">Mean Platelet Medical by Automated Volume Center count </content>11.4 FL H<content styleCode="Ital ics"> (8.0-11.0 FL)</content> Platelets 130-400 <content [facility] [#/volume] in styleCode="Bold Nhan Blood by ">Platelet Medical Automated count Count Center </content>269 KCUMM<content styleCode="Ital ics"> (130-400 KCUMM)</content > Erythrocyte 11.5-14. Above high <content [facility] distribution 5 normal styleCode="Bold Nhan width [Ratio] by ">Red Cell Medical Automated count Distribution Center Width </content>15.7 % H<content styleCode="Ital ics"> (11.5-14.5 %)</content> Erythrocyte mean 32.0-37. Below low normal <content [facility] corpuscular 0 styleCode="Bold Nhan hemoglobin ">Mean Corpus. Medical concentration Hgb Center [Mass/volume] by Concentration Automated count (MCHC) </content>31.8 G/DL L<content styleCode="Ital ics"> (32.0-37.0 G/DL)</content> UNK 0.0 <content Saint styleCode="Bold Nhan ">Nucleated Red Medical Blood Cell Center Count </content>0.00 KCUMM<content styleCode="Ital ics"> (0.0 KCUMM)</content > UNK 0 <content Saint styleCode="Bold Nhan ">Nucleated Red Medical Blood Cell Center </content>0.0 /100<content styleCode="Ital ics"> (0 /100)</content> ID Date Data Source GFR(Creatinine).[id number] 02/27/2019 02:05:00 AM EDT [facility] 0-0400 Name Value Range Interpretation Code Description Data Ashlee rce(s) Supporting Document(s ) UNK > 60 Below low normal <content [facility] styleCode="Bold"> Medical Cent er EGFR </content>52 GFR L<content styleCode="Italic s"> (> 60 GFR)</content> ID Date Data Source Coagulation 02/27/2019 02:05:00 AM [facility] ical [facility] Rout.[id number] EDT Name Value Range Interpretation Description Data Sup porting Code Source(s) Document(s ) aPTT in 25.1-36. <content [facility] Platelet poor 5 styleCode="Bold" Nhan plasma by >Partial Medical Coagulation Thromboplastin Center assay Time </content>27.1 SEC<content styleCode="Itali cs"> (25.1-36.5 SEC)</content> INR in 0.80-1.2 <content [facility] Platelet poor 0 styleCode="Bold" Nhan plasma by >INR Medical Coagulation </content>1.03 Center assay #<content styleCode="Itali cs"> (0.80-1.20 #)</content> UNK 9.0-13.0 <content [facility] styleCode="Bold" Nhan >Protime Medical </content>11.7 Center SEC<content styleCode="Itali cs"> (9.0-13.0 SEC)</content> ID Date Data Source CHMROUTINECCDA.[id number] 02/27/2019 02:05:00 AM EDT [facility] -0400 Name Value Range Interpretation Description Data Sup porting Code Source(s) Document(s ) Natriuretic < 125 Above high normal <content [facility] peptide.B styleCode="Mike Nhan prohormone d">NT Pro BNP Medical N-Terminal </content>1460 Center [Mass/volume] PG/ML in Serum or H<content Plasma styleCode="Evelyn lics"> (< 125 PG/ML)</conten t> UNK 4.2-5.8 <content [facility] styleCode="Mike Nhan d">Hemoglobin Medical A1C Center </content>5.5 %<content styleCode="Evelyn lics"> (4.2-5.8 %)</content> ID Date Data Source [facility].[id number] 02/27/2019 02:05:00 AM EDT [facility] Name Value Range Interpretation Description Data Sup porting Code Source(s) Document(s ) Chloride 98-107 <content [facility] [Moles/volume] styleCode="Mike Nhan in Serum or d">Chloride Medical Plasma </content>106 Center MEQ/L<content styleCode="Evelyn lics"> (98-107 MEQ/L)</conten t> Carbon 22-30 <content [facility] dioxide, total styleCode="Mike Nhan [Moles/volume] d">Carbon Medical in Serum or Dioxide Center Plasma </content>25 MEQ/L<content styleCode="Evelyn lics"> (22-30 MEQ/L)</conten t> Potassium 3.5-5.3 Below low normal <content [facility] [Moles/volume] styleCode="Mike Nhan in Serum or d">Potassium Medical Plasma </content>3.3 Center MEQ/L L<content styleCode="Evelyn lics"> (3.5-5.3 MEQ/L)</conten t> Sodium 137-145 <content [facility] [Moles/volume] styleCode="Mike Nhan in Serum or d">Sodium Medical Plasma </content>143 Center MEQ/L<content styleCode="Evelyn lics"> (137-145 MEQ/L)</conten t> UNK 7-17 Above high normal <content [facility] styleCode="Mike Nhan d">BUN Medical </content>26 Center MG/DL H<content styleCode="Evelyn lics"> (7-17 MG/DL)</conten t> UNK > 60 Below low normal <content [facility] styleCode="Mike Nhan d">EGFR Medical </content>52 Center GFR L<content styleCode="Evelyn lics"> (> 60 GFR)</content> Glucose 74-106 Above high normal <content [facility] [Mass/volume] styleCode="Mike Nhan in Serum or d">Glucose Medical Plasma </content>185 Center MG/DL H<content styleCode="Evelyn lics"> (74-106 MG/DL)</conten t> Calcium 8.4-10.2 <content [facility] [Mass/volume] styleCode="Mike Nhan in Serum or d">Calcium Medical Plasma </content>9.5 Center MG/DL<content styleCode="Evelyn lics"> (8.4-10.2 MG/DL)</conten t> Creatinine 0.5-1.3 <content [facility] [Mass/volume] styleCode="Mike Nhan in Serum or d">Creatinine Medical Plasma </content>1.3 Center MG/DL<content styleCode="Evelyn lics"> (0.5-1.3 MG/DL)</conten t> Procedure Social History Code Duration Value Status Description Data Source(s ) Smoking 05/03/2019 Daily Smoker completed Daily Smoker [facility] 07:18:00 PM EDT Medical C enter Smoking 05/03/2019 Daily Smoker completed Daily Smoker [facility] 05:52:00 PM EDT Medical C enter Smoking 05/03/2019 Former Smoker completed Former Smoker [facility] 03:01:00 PM EDT Medical C enter Smoking 05/03/2019 Former Smoker completed Former Smoker [facility] 02:41:00 PM EDT Medical C enter Smoking 05/03/2019 Former Smoker completed Former Smoker Rachel [facility] 02:37:00 PM EDT Medical C enter Smoking 02/27/2019 Daily Smoker completed Daily Smoker [facility] 04:44:00 AM EDT Medical C enter Smoking 02/27/2019 Denies Ever completed Denies Ever Smoked [facility] 04:41:00 AM EDT Smoked Medical C enter Smoking 02/27/2019 Denies Ever completed Denies Ever Smoked [facility] 03:15:00 AM EDT Smoked Medical C enter Smoking 02/27/2019 Denies Ever completed Denies Ever Smoked [facility] 02:15:00 AM EDT Smoked Medical C enter Smoking Former smoker completed Former smoker [facility] Smoking Unknown if ever completed Unknown if ever Dinesh Justin smoked smoked [facility] Vital Signs ID Date Data Source UNK Name Value Range Interpretation Code Description Data Source(s) Diastolic blood 53 {} Normal (applies to 53 {} [place] pressure non-numeric results) [facility] Systolic blood 129 {} Normal (applies to 129 {} [place] pressure non-numeric results) [facility] First Respiration 19.0000 {} Normal (applies to 19.0000 {} [place] rate Set non-numeric results) [facility] Heart rate 78.0000 {} Normal (applies to 78.0000 {} [place] brig[place] non-numeric results) [facility] Body temperature 97.6000 {} Normal (applies to 97.6000 {} [place] non-numeric results) [facility] wt - obtain Normal (applies to {} [place] bust[place] non-numeric results) [facility] weight - kg 119.2000 {} Normal (applies to 119.2000 {} Raghavendra [place] non-numeric results) [facility] Body temperature 97.5000 {} Normal (applies to 97.5000 {} [place] non-numeric results) [facility] Heart rate 72.0000 {} Normal (applies to 72.0000 {} [place] non-numeric results) [facility] First Respiration 16.0000 {} Normal (applies to 16.0000 {} [place] rate Set non-numeric results) [facility] Systolic blood 144 {} Normal (applies to 144 {} [place] pressure non-numeric results) [facility] Diastolic blood 58 {} Normal (applies to 58 {} [place] pressure non-numeric results) [facility] height - cm Normal (applies to {} [place] non-numeric results) [facility] weight - kg 131.3630 {} Normal (applies to 131.3630 {} Raghavendra [place] non-numeric results) [facility] Body temperature 36.800362 36.780178 [facility] Respiratory rate 20 /min 20 /min [facility] Heart rate 103 /min 103 /min [facility] Diastolic blood 73 mm[Hg] 73 mm[Hg] [facility] Systolic blood 150 mm[Hg] 150 mm[Hg] [facility] Body temperature 36.729392 36.609037 [facility] Respiratory rate 20 /min 20 /min [facility] Heart rate 91 /min 91 /min [facility] Diastolic blood 58 mm[Hg] 58 mm[Hg] [facility] pressure [facility] Center Systolic blood 126 mm[Hg] 126 mm[Hg] [facility] pressure Medical Center Body weight 124.628752 124.112750 kg [facility] Measured kg Medical Center Body temperature 36.376344 36.490821 [facility] Respiratory rate 20 /min 20 /min [facility] Heart rate 97 /min 97 /min [facility] Diastolic blood 60 mm[Hg] 60 mm[Hg] [facility] Systolic blood 134 mm[Hg] 134 mm[Hg] [facility] Body temperature 36.668790 36.800134 [facility] Respiratory rate 20 /min 20 /min [facility] Heart rate 92 /min 92 /min [facility] Diastolic blood 80 mm[Hg] 80 mm[Hg] [facility] Systolic blood 155 mm[Hg] 155 mm[Hg] [facility] Body temperature 36.811205 36.926944 [facility] Respiratory rate 20 /min 20 /min [facility] Heart rate 88 /min 88 /min [facility] Diastolic blood 70 mm[Hg] 70 mm[Hg] [facility] Systolic blood 145 mm[Hg] 145 mm[Hg] [facility] pressure [facility] Center Body weight 127.241100 127.385671 kg [facility] Measured kg Medical Center Oxygen saturation 96 % 96 % [facility] Mini burks in Arterial blood Medical Center by Pulse oximetry Body weight 126.006222 126.768972 kg [facility] Measured kg Medical Center Body height 170.293557 170.701142 cm [facility] Body mass index 43.54 kg/m2 43.54 kg/m2 [facility] (BMI) [Ratio] Medical [address] Oxygen saturation 98 % 98 % [facility] in Arterial blood Medical Center by Pulse oximetry Oxygen saturation 97 % 97 % [facility] in Arterial blood [facility] by Pulse oximetry Body weight 127.695356 127.392985 kg [facility] Measured kg Medical Center Oxygen saturation 98 % 98 % [facility] in Arterial blood [facility] Center by Pulse oximetry Body weight 129.373387 129.804660 kg [facility] Measured kg Medical Center Oxygen saturation 97 % 97 % [facility] in Arterial blood [facility] Center by Pulse oximetry Body height 170.478134 170.876167 cm [facility] Body mass index 45.09 kg/m2 45.09 kg/m2 [facility] (BMI) [Ratio] Medical [address] Body height 170.889693 170.357556 cm [facility] Body mass index 45.20 kg/m2 45.20 kg/m2 [facility] (BMI) [Ratio] Medical [address] Body temperature 36.502018 36.399768 [facility] Respiratory rate 18 /min 18 /min [facility] Heart rate 80 /min 80 /min [facility] Diastolic blood 64 mm[Hg] 64 mm[Hg] [facility] Systolic blood 139 mm[Hg] 139 mm[Hg] [facility] Body temperature 36.066509 36.495563 [facility] Respiratory rate 20 /min 20 /min [facility] Heart rate 80 /min 80 /min [facility] Diastolic blood 55 mm[Hg] 55 mm[Hg] [facility] Systolic blood 122 mm[Hg] 122 mm[Hg] [facility] Body temperature 36.438755 36.403255 [facility] Respiratory rate 20 /min 20 /min [facility] Heart rate 79 /min 79 /min [facility] Diastolic blood 71 mm[Hg] 71 mm[Hg] [facility] Center Systolic blood 146 mm[Hg] 146 mm[Hg] [facility] pressure [facility] Center Body height 170.572182 170.321839 cm [facility] Medical Center Body mass index 45.23 kg/m2 45.23 kg/m2 [facility] (BMI) [Ratio] Medical [facility] ter Body weight 289.360593 289.720806 kg [facility] Measured kg Medical Center Oxygen saturation 96 % 96 % [facility] in Arterial blood Medical Center by Pulse oximetry Body mass index 99.79 kg/m2 99.79 kg/m2 [facility] (BMI) [Ratio] Medical [facility] ter Body height 170.697646 170.994392 cm [facility] Center Body mass index 45.23 kg/m2 45.23 kg/m2 [facility] (BMI) [Ratio] Medical [facility] ter Heart rate 83 /min 83 /min [facility] Body height 167.648947 167.103247 cm [facility] Center Diastolic blood 64 mm[Hg] 64 mm[Hg] [facility] Systolic blood 145 mm[Hg] 145 mm[Hg] [facility] Medical Center Body mass index 102.84 102.84 kg/m2 [facility] (BMI) [Ratio] kg/m2 Medical [facility] ter Body weight 289.076661 289.715741 kg [facility] Measured kg Medical Center Body temperature 36.239906 36.374093 [facility] Respiratory rate 20 /min 20 /min [facility] Body temperature 36.045752 36.401922 [facility] Respiratory rate 18 /min 18 /min [facility] Oxygen saturation 100 % 100 % [facility] in Arterial blood [facility] Center by Pulse oximetry Heart rate 83 /min 83 /min [facility] Diastolic blood 68 mm[Hg] 68 mm[Hg] [facility] Center Systolic blood 143 mm[Hg] 143 mm[Hg] [facility] Medical Center Oxygen saturation 100 % 100 % [facility] in Arterial blood [facility] Center by Pulse oximetry Body weight 136.428987 136.483632 kg [facility] Measured kg Medical Center Oxygen saturation 100 % 100 % [facility] in Arterial blood Medical Center by Pulse oximetry Body height 170.349970 170.248795 cm [facility] Center Body mass index 46.9 kg/m2 46.9 kg/m2 [facility] (BMI) [Ratio] Medical [facility] ter Body temperature 36.812969 36.881968 [facility] Respiratory rate 20 /min 20 /min [facility] Heart rate 88 /min 88 /min [facility] Diastolic blood 60 mm[Hg] 60 mm[Hg] [facility] pressure [facility] Center Systolic blood 139 mm[Hg] 139 mm[Hg] [facility] Medical [place] Body temperature 36.113077 36.870655 [facility] Respiratory rate 20 /min 20 /min [facility] Heart rate 81 /min 81 /min [facility] Diastolic blood 72 mm[Hg] 72 mm[Hg] [facility] Medical [place] Systolic blood 176 mm[Hg] 176 mm[Hg] [facility] Medical [place] Body weight 127.125804 127.885580 kg [facility] Measured kg Medical Center Body temperature 36.840676 36.352790 [facility] Respiratory rate 20 /min 20 /min [facility] Heart rate 72 /min 72 /min [facility] Diastolic blood 69 mm[Hg] 69 mm[Hg] [facility] Systolic blood 151 mm[Hg] 151 mm[Hg] [facility] Body temperature 36.339897 36.291328 [facility] Respiratory rate 20 /min 20 /min [facility] Heart rate 87 /min 87 /min [facility] Diastolic blood 77 mm[Hg] 77 mm[Hg] [facility] pressure [facility] Center Systolic blood 160 mm[Hg] 160 mm[Hg] [facility] Medical [place] Oxygen saturation 100 % 100 % [facility] in Arterial blood Medical Center by Pulse oximetry Body temperature 36.115351 36.986941 [facility] Respiratory rate 20 /min 20 /min [facility] Heart rate 93 /min 93 /min [facility] Diastolic blood 70 mm[Hg] 70 mm[Hg] [facility] Center Systolic blood 125 mm[Hg] 125 mm[Hg] [facility] pressure Medical Center Body weight 129.779769 129.961130 kg [facility] Measured kg Medical Center Oxygen saturation 95 % 95 % [facility] in Arterial blood Medical Center by Pulse oximetry Body weight 130.373576 130.708702 kg [facility] Measured kg Medical Center Oxygen saturation 97 % 97 % [facility] in Arterial blood Medical Center by Pulse oximetry Oxygen saturation 95 % 95 % [facility] in Arterial blood Medical Center by Pulse oximetry Oxygen saturation 98 % 98 % [facility] in Arterial blood Medical Center by Pulse oximetry Body weight 129.622428 129.534412 kg [facility] Measured kg Medical Center Body weight 129.043973 129.628259 kg [facility] Measured kg Medical Center Body height 170.988029 170.407370 cm [facility] Body mass index 44.85 kg/m2 44.85 kg/m2 [facility] (BMI) [Ratio] Medical [address] [facility] Body temperature 37.579358 37.475716 [facility] Respiratory rate 20 /min 20 /min [facility] Heart rate 100 /min 100 /min [facility] Diastolic blood 70 mm[Hg] 70 mm[Hg] [facility] Systolic blood 156 mm[Hg] 156 mm[Hg] [facility] Body temperature 36.859224 36.044269 [facility] Respiratory rate 18 /min 18 /min [facility] Heart rate 90 /min 90 /min [facility] Diastolic blood 67 mm[Hg] 67 mm[Hg] [facility] Systolic blood 156 mm[Hg] 156 mm[Hg] [facility] Body temperature 36.350587 36.427705 [facility] Respiratory rate 20 /min 20 /min [facility] Heart rate 89 /min 89 /min [facility] Diastolic blood 75 mm[Hg] 75 mm[Hg] [facility] Medical [place] Systolic blood 157 mm[Hg] 157 mm[Hg] [facility] Body temperature 36.912086 36.185365 [facility] Respiratory rate 16 /min 16 /min [facility] Heart rate 89 /min 89 /min [facility] Diastolic blood 87 mm[Hg] 87 mm[Hg] [facility] Systolic blood 171 mm[Hg] 171 mm[Hg] [facility] pressure Medical Center Body temperature 36.069560 36.033059 [facility] Center Respiratory rate 19 /min 19 /min [facility] Heart rate 81 /min 81 /min [facility] Diastolic blood 94 mm[Hg] 94 mm[Hg] [facility] pressure [facility] Center Systolic blood 179 mm[Hg] 179 mm[Hg] [facility] pressure Medical Center Body height 170.903133 170.853608 cm [facility] cm Medical Center Body mass index 44.09 kg/m2 44.09 kg/m2 [facility] osep (BMI) [Ratio] Medical [facility] Body weight 127.940244 127.839784 kg [facility] Measured kg [facility] Oxygen saturation 100 % 100 % [facility] in Arterial blood Medical Center by Pulse oximetry Patient Treatment Plan of Care Planned Activity Planned Date Details Description Data Source (s) Zofran 4mg/2mL (Onda 07/28/2019 [facility] 05:16:36 AM [employer] ([employer]) Heparin Sodium 27814 07/28/2019 [facility] 04:15:02 AM [employer] ([employer]) Nitroglycerin 50mg/2 07/28/2019 [facility] 04:13:12 AM [employer] [address] [employer] Heparin 5000 units/m 07/28/2019 [facility] 04:13:12 AM [employer] [address] [employer] colchicine 0.6 mg Tablet [facility] furosemide 40 mg Tablet [facility] Potassium Chloride 10 MEQ [facility] Extended Release Oral [place] Tablet Hydralazine Hydrochloride [facility] 50 MG Oral Tablet [place] apixaban 5 MG Oral Tablet [facility] [Eliquis] [place] Amlodipine 10 MG Oral [facility] 200 ACTUAT Albuterol 0.09 [facility]/ACTUAT Metered Dose Cente r Inhaler Allopurinol 100 MG Oral [facility] carvedilol 3.125 MG Oral [facility] Aspirin 81 MG Chewable [facility] atorvastatin 40 MG Oral [facility] Donepezil hydrochloride [facility] 10 MG Oral Tablet [place] Fluticasone propionate [facility] 0.25 MG/ACTUAT / Center salmeterol 0.05 MG/ACTUAT Dry Powder Inhaler pantoprazole 40 MG [facility] Delayed Release Oral Center Tablet torsemide 20 MG Oral [facility] Tablet [place] metoprolol tartrate 25 mg [facility] TabletDirections: 1 Center tablet oral daily allopurinol 100 mg [facility] TabletDirections: 1 [place] tablet oral daily Aspirin 81 MG Chewable [facility] apixaban 5 MG Oral Tablet [facility] [Eliquis] [place] atorvastatin 40 MG Oral [facility] 60 ACTUAT tiotropium [facility] 0.0025 MG/ACTUAT Metered [address] Dose Inhaler [Spiriva] 14 ACTUAT Fluticasone [facility] propionate 0.5 MG/ACTUAT [address] / salmeterol 0.05 MG/ACTUAT Dry Powder Inhaler [Advair] Hydralazine Hydrochloride [facility] 25 MG Oral Tablet Center Prednisone 20 MG Oral [facility] pantoprazole 40 MG [facility] Delayed Release Oral Center Tablet Furosemide 40 MG Oral [facility] Donepezil hydrochloride [facility] 10 MG Oral Tablet Center Amlodipine 10 MG Oral [facility]
[2020-06-19 06:58] LABS: BASO % 0.7 % (0-2.0); EOS % 3.9 % (0-4.5); HEMATOCRIT 31.5 % (32.4-45.2); HEMOGLOBIN 10.4 GM/dL (10.7-15.3); LYMPH % 30.4 % (8-40); MCH 31.7 pg (25.7-33.7); MCHC 32.9 g/dl (32.0-36.0); MEAN CELL VOLUME 96.3 fl (80-96); MEAN PLT VOLUME 10.2 fl (7.5-11.1); MONO % 10.1 % (3.8-10.2); NEUT % 54.9 % (42.8-82.8); PLATELET COUNT 187 K/MM3 (134-434); RBC 3.27 M/mm3 (3.60-5.2); RDW 15.1 % (11.6-15.6); WHITE BLOOD COUNT 6.1 K/mm3 (4.0-10.0)
[2020-06-19 07:27] LABS: BILIRUBIN,TOTAL 0.5 mg/dL (0.2-1); CREATININE 2.2 mg/dL (0.55-1.3); MAGNESIUM 2.2 mg/dL (1.8-2.4); POTASSIUM 4.4 mmol/L (3.5-5.1)
[2020-06-19 07:35] LABS: ALBUMIN 3.2 g/dl (3.4-5.0); BLOOD UREA NITROGEN 38.5 mg/dL (7-18); CALCIUM 8.9 mg/dL (8.5-10.1); TOT PROT 7.1 g/dl (6.4-8.2)
--- NOTE | 2020-06-19 09:34 | CON.CARD ---
Consult Consult Specialty:: Cardiology Referred by:: Hospitalist Medicine Reason for Consultation:: Chest pain - History of Present Illness Chief Complaint: Chest pain History of Present Illness: Patient is a 69 year old female with history of COPD/bronchial asthma, acute on chronic diastolic LV failure (HFpEF), HTN, hypercholesterolemia, CAD h/o MN, RCA MANAGER RECOVERY, CVA (residual deficit), COPD (2L-3L at home), ?TREY, CKD, and dementia who presents with chest pain following NBNB emesis for 30 mins in the afternoon. Patient describes the chest pain as "squeezing sensation"- now resolved. She denied any shortness of breath, recurrent chest pain, palpitations, near or true syncope, orthopnea, paroxysmal nocturnal dyspnea or orthopnea. She denies fever or chills. She denies recurrent nausea, vomiting, diarrhea or abdominal pain. She denies headache or lightheadedness. Her outpatient [employer] [facility] Mir Ching confirmed that patient was briefly on Eliquis due to TTE showing thrombus but subsequent [facility]NA at [facility] did not show thrombus so Eliquis was stopped, no documentation of PAF that I have seen. 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, Dementia Cardio/Vascular: Yes: CHF (Diastolic dysfunction), HTN, Hyperlipdemia Pulmonary: Yes: Asthma, COPD Gastrointestinal: Yes: Diverticulitis - Past Surgical History Past Surgical History: Yes: Hysterectomy - Alcohol/Substance Use Hx Alcohol Use: No History of Substance Use: reports: None - Smoking History Smoking history: Former smoker Have you smoked in the past 12 months: No Aproximately how many cigarettes per day: 20 If you are a former smoker, when did you quit?: 2018 - Social History ADL: Family Assistance Home Medications - Allergies Allergies/Adverse Reactions: Allergies Allergy/AdvReac Type Severity Reaction Status Date / Time No Known Allergies Allergy Verified 02/16/20 22:02 - Home Medications Home Medications: Ambulatory Orders Allopurinol [Zyloprim -] 100 mg PO DAILY 09/10/18 Donepezil HCl 10 mg PO HS 09/10/18 Valsartan [Diovan] 80 mg PO DAILY #30 tablet 08/16/19 Atorvastatin Ca [Lipitor] 80 mg PO HS 10/07/19 Pantoprazole Sodium [Protonix] 40 mg PO DAILY #30 tablet. 11/23/19 Furosemide 60 mg PO DAILY 02/17/20 Aspirin [ASA -] 81 mg PO DAILY #30 tab.chew 02/18/20 Carvedilol [Coreg] 6.25 mg PO BID #60 tablet 02/18/20 Isosorbide Mononitrate [Imdur -] 30 mg PO DAILY #30 tab.sr.24h 02/18/20 Nifedipine ER [Procardia XL -] 60 mg PO DAILY #30 tab.er.24 02/18/20 Ranolazine [Ranexa -] 500 mg PO BID #60 tab 02/18/20 Calcium Carbonate/Vitamin D3 [Calcium 600-D3 20Mcg(800 Unit)] 600 mg PO DAILY 06/19/20 Cholecalciferol (Vitamin D3) [Vitamin D3] 25 mcg PO DAILY 06/19/20 Fluticasone Propion/Salmeterol [Wixela 500-50 Inhub] 1 amp IH DAILY 06/19/20 Family Medical History Family Hx Coronary Artery Disease: Daughter (HTN) Other Family History: Family Hx of CAD Review of Systems - Review of Systems Cardiovascular: reports: Chest Pain Gastrointestinal: reports: Nausea, Vomiting Vital Signs: Vital Signs Temperature 98.5 F 06/19/20 07:45 Pulse Rate 65 06/19/20 07:45 Respiratory Rate 16 06/19/20 07:45 Blood Pressure 176/83 H 06/19/20 07:45 O2 Sat by Pulse Oximetry (%) 100 06/19/20 07:45 Constitutional: Yes: No Distress, Calm Neck: Yes: Supple Respiratory: Yes: Regular, CTA Bilaterally Gastrointestinal: Yes: Normal Bowel Sounds, Soft, Abdomen, Obese Cardiovascular: Yes: Regular Rate and Rhythm JVD: No Carotid Bruit: No Heart Sounds: Yes: S1, S2 Edema: No - Other Data Labs, Other Data: CBC, BMP 06/19/20 06:21 06/19/20 06:21 Troponin, BNP 06/18/20 06/19/20 06/19/20 20:42 02:13 06:21 Troponin I 0.02 0.03 0.04 B-Natriuretic Peptide 943.7 H Troponin, BNP 06/18/20 06/19/20 06/19/20 20:42 02:13 06:21 Troponin I 0.02 0.03 0.04 B-Natriuretic Peptide 943.7 H NSR IVCD Echo: Report Reviewed Ejection Fraction %: LVEF > or = 40 % Imaging - Results Chest X-ray: Report Reviewed (NAD) Problem List - Problems (1) Chest pain Code(s): R07.9 - CHEST PAIN, UNSPECIFIED Qualifiers: Chest pain type: unspecified (2) Diastolic dysfunction Code(s): I51.89 - OTHER ILL-DEFINED HEART DISEASES (3) Coronary artery disease Code(s): I25.10 - ATHSCL HEART DISEASE OF [place] CORONARY ARTERY W/O ANG PCTRS Qualifiers: Coronary Disease-Associated Artery/Lesion type: [place] artery [place] vs. transplanted heart: [place] heart Associated angina: without angina Qualified Code(s): I25.10 - Atherosclerotic heart disease of [place] coronary artery without angina pectoris (4) HTN (hypertension) Code(s): I10 - ESSENTIAL (PRIMARY) HYPERTENSION Qualifiers: Hypertension type: essential hypertension (5) Morbid obesity Code(s): E66.01 - MORBID (SEVERE) OBESITY DUE TO EXCESS CALORIES (6) Hypercholesteremia Code(s): E78.00 - PURE HYPERCHOLESTEROLEMIA, UNSPECIFIED (7) Old inferolateral myocardial infarction Code(s): I25.2 - OLD MYOCARDIAL INFARCTION Assessment/Plan 02/18/2020 Echo: Normal LV size, mild LVH, normal LV systolic fxn LVEF 55-60%, impaired relaxation, normal RV size and fxn, mod LAE, mild MR, mild with mild-mod AR 1. Chest pain syndrome/atypical for angina pectoris suspect esophageal spasm post emesis 2. Coronary artery disease history of demand ischemic injury/subendocardial ischemia angina pectoris 3. Diastolic LV dysfunction with chronic class I-II NYHA classification LV failure/(HFpEF)- clinically compensated/euvolemic- BNP elevation is chronic- specially with underlying chronic kidney disease 4. Questionable history of paroxysmal atrial fibrillation currently off of A/C therapy, in sinus rhythm 5. HTN cardiovascular disease, BP not at goal control 6. Hypercholesterolemia 7. History of cerebrovascular disease 8. Organic brain syndrome/dementia 9. COPD 10. OSAS is a suspect 11. Chronic kidney disease 12. Iron-deficiency anemia likely referable to gastric angioectasias 13. History of diverticulitis PLAN: 1. Ruling out for MN, antacids and PPI 2. Continue Coreg, 6.25 bid with dose titration as tolerated 3. Continue Procardia XL 60 qd 4. Continue Hydralazine 50 tid 5. Continue Imdur 30 qd and Ranexa 500 bid for management of chronic angina pectoris/recurrent admissions 6. Continue Lipitor 80 qhs 7. Resumeed Lasix 60 qd and Diovan 80 qd with close monitoring of renal function and electrolytes, unless contraindicated 8. Resume ASA 81 qd 9. As outlined in the prior notes/prior admissions Eliquis therapy was D/C by her maintenance operator if recurrent atrial fibrillation is noted to consider resumption of therapy versus SUZANNE closure device implant 10. Provided cardiac biochemical markers remain negative/patient ruled out for ACS (Troponin I X 2 were negative) and patient is tolerating current medical therapy with no recurrent angina pectoris; she can be D/C home today for additional outpatient evaluation by her maintenance operator or if she prefers may followup in our office- [phone] 11. Thank you for consultative opportunity
--- NOTE | 2020-06-19 09:53 | EKG ---
Test Reason : Blood Pressure : / mmHG Vent. Rate : 059 BPM Atrial Rate : 059 BPM P-R Int : 228 ms QRS Dur : 116 ms QT Int : 476 ms P-R-T Axes : 062 051 072 degrees QTc Int : 471 ms SINUS BRADYCARDIA WITH 1ST DEGREE A-V BLOCK LOW VOLTAGE QRS INFERIOR INFARCT (CITED ON OR BEFORE 09-SEP-2018) CANNOT RULE OUT ANTERIOR INFARCT (CITED ON OR BEFORE 09-SEP-2018) ABNORMAL ECG WHEN COMPARED WITH ECG OF 17-FEB-2020 06:11, NO SIGNIFICANT CHANGE WAS FOUND Confirmed by SHELLY JERRY MD ([id number]) on 06/19/2020 9:52:32 AM Referred By: Confirmed By:SHELLY JERRY MD
[2020-06-19] MEDS ORDERED: ASPIRIN 81 MG CHEWABLE TABLETS ONE (10:00)
[2020-06-19] MEDS ORDERED: RANOLAZINE E.R. 500 MG TABLET (FP) PO SCH (10:00)
[2020-06-19] MEDS ORDERED: CARVEDILOL 6.25 MG TABLET (FP) PO SCH (10:00)
[2020-06-19] MEDS ORDERED: NIFEdipine E.R 60 MG TABLET PO SCH (10:00)
[2020-06-19] MEDS ORDERED: NIFEdipine E.R. 30 MG TABLET ONE (10:00)
[2020-06-19] MEDS ORDERED: ISOSORBIDE MONONITRATE 30 MG TAB.SR.24H (FP) PO SCH (10:00)
[2020-06-19] MEDS ORDERED: ASPIRIN 81 MG CHEWABLE TABLETS PO SCH (10:00)
[2020-06-19] MEDS ORDERED: CARVEDILOL 3.125 MG TABLET (FP) ONE (10:00)
[2020-06-19] MEDS ORDERED: RAPID SEQUENCE INTUBATION KIT NR ONE (11:41)
[2020-06-19] MEDS ORDERED: FUROSEMIDE 40 MG TABLET (FP) PO SCH (11:45)
[2020-06-19] MEDS ORDERED: CALCIUM 500MG/VIT-D 200 UNITS COMBO TABLET (FP) PO SCH (11:45)
[2020-06-19] MEDS ORDERED: ALLOPURINOL 100 MG TABLET (FP) PO SCH (13:15)
[2020-06-19] MEDS ORDERED: VALSARTAN 80 MG TABLET (UD) PO SCH (13:15)
[2020-06-19] MEDS ORDERED: CHOLECALCIFEROL (VIT D3) 1,000 UNIT (25 MCG) TABLET PO SCH (13:15)
[2020-06-19] MEDS ORDERED: VALSARTAN 80 MG TABLET (UD) ONE (13:26)
[2020-06-19] MEDS ORDERED: FUROSEMIDE 40 MG TABLET (FP) ONE (13:26)
[2020-06-19] MEDS ORDERED: hydrALAZINE HCL 50 MG TABLET (FP) PO SCH (14:00)
--- NOTE | 2020-06-19 15:46 | PN ---
Teaching Attending Note Name of Resident: Katherine Romano ATTENDING PHYSICIAN STATEMENT I saw and evaluated the patient. I reviewed the resident's note and discussed the case with the resident. I agree with the resident's findings and plan as documented. SUBJECTIVE: pt seen and examined, denies any symptoms OBJECTIVE: Last Vital Signs Temp Pulse Resp BP Pulse Ox 98.5 F 65 16 176/83 H 100 06/19/20 07:45 06/19/20 07:45 06/19/20 07:45 06/19/20 07:45 06/19/20 07:45 GENERAL: Awake, alert, and fully oriented, in no acute distress. obese HEAD: Normal with no signs of trauma. EYES: Pupils equal, round and reactive to light, sclera anicteric, conjunctiva clear. LUNGS: Breath sounds equal, clear to auscultation bilaterally. No wheezes, and no crackles. No accessory muscle use. HEART: Regular rate and rhythm, normal S1 and S2 ABDOMEN: Soft, nontender, not distended MUSCULOSKELETAL: Normal range of motion at all joints. No bony deformities or tenderness. No CVA tenderness. UPPER EXTREMITIES: 2+ pulses, warm, well-perfused. No cyanosis. No clubbing. No peripheral edema. LOWER EXTREMITIES: 2+ pulses, warm, well-perfused. No calf tenderness. No peripheral edema. NEUROLOGICAL: Cranial nerves II-XII intact. Normal speech. CBCD WBC 6.1 K/mm3 (4.0-10.0) 06/19/20 06:21 RBC 3.27 M/mm3 (3.60-5.2) L 06/19/20 06:21 Hgb 10.4 GM/dL (10.7-15.3) L 06/19/20 06:21 Hct 31.5 % (32.4-45.2) L 06/19/20 06:21 MCV 96.3 fl (80-96) H 06/19/20 06:21 MCHC 32.9 g/dl (32.0-36.0) 06/19/20 06:21 RDW 15.1 % (11.6-15.6) 06/19/20 06:21 Plt Count 187 K/MM3 (134-434) 06/19/20 06:21 MPV 10.2 fl (7.5-11.1) 06/19/20 06:21 CMP Sodium 144 mmol/L (136-145) 06/19/20 06:21 Potassium 4.4 mmol/L (3.5-5.1) 06/19/20 06:21 Chloride 113 mmol/L (98-107) H 06/19/20 06:21 Carbon Dioxide 26 mmol/L (21-32) 06/19/20 06:21 Anion Gap 5 MMOL/L (8-16) L 06/19/20 06:21 BUN 38.5 mg/dL (7-18) H 06/19/20 06:21 Creatinine 2.2 mg/dL (0.55-1.3) H 06/19/20 06:21 Random Glucose 89 mg/dL (74-106) 06/19/20 06:21 Calcium 8.9 mg/dL (8.5-10.1) 06/19/20 06:21 Total Bilirubin 0.5 mg/dL (0.2-1) 06/19/20 06:21 AST 13 U/L (15-37) L 06/19/20 06:21 ALT 13 U/L (13-61) 06/19/20 06:21 Alkaline Phosphatase 106 U/L (45-117) 06/19/20 06:21 Total Protein 7.1 g/dl (6.4-8.2) 06/19/20 06:21 Albumin 3.2 g/dl (3.4-5.0) L 06/19/20 06:21 CARDIAC ENZYMES Creatine Kinase 107 U/L (26-192) 06/18/20 20:42 Troponin I 0.04 ng/ml (0.00-0.05) 06/19/20 06:21 Active Medications Allopurinol (Zyloprim -) 100 mg PO DAILY [facility] Last Admin: 06/19/20 14:24 Dose: 100 mg Documented by: Aspirin (Asa -) 81 mg PO DAILY [facility] Calcium Carbonate/Cholecalciferol (Os-Yinka 500+D -) 1 tab PO DAILY [facility] Last Admin: 06/19/20 14:24 Dose: 1 tab Documented by: Cholecalciferol (Vitamin D3 -) 1,000 unit PO DAILY [facility] Last Admin: 06/19/20 14:24 Dose: 1,000 unit Documented by: Donepezil HCl (Aricept -) 10 mg PO [facility] Furosemide (Lasix -) 60 mg PO DAILY [facility] Last Admin: 06/19/20 13:59 Dose: 60 mg Documented by: Non-Formulary Medication (Fluticasone Propion/Salmeterol [Wixela 500-50 Inhub]) 1 amp IH DAILY [facility] Pantoprazole Sodium (Protonix -) 40 mg PO DAILY [facility] Valsartan (Diovan -) 80 mg PO DAILY [facility] Last Admin: 06/19/20 13:59 Dose: 80 mg Documented by: ASSESSMENT AND PLAN: 69 y/o female with a PMHx significant for CAD, HFpEF, pAfib (no AC), Hypertensi on, Hyperlipidemia, CVA (residual deficit), COPD (2L-3L at home), TREY, CKD, Dementia. Who presents to the ED for chest pain # Atypical Chest pain - resolved pt describing chest pain at rest, pressure like lasted 5 min and resolved spontaneously, no identifiable triggers lying flat, no dyspnea, no current pain troponin x3 negative, EKG showing no acute ST/T wave changes, first degree block, sinus tello one dose furosemide resume home medications cardiology consult appreciated MARISOL on CKD resolving Obesity HFpEF paroxysmal Afib not on AC (per previous cardiology notes) HTN HLD CVA TREY DVT prophylaxis
[2020-06-19 15:49] VITALS: TEMP 97.7
--- NOTE | 2020-06-19 16:24 | DS ---
Physical Exam: SUBJECTIVE: Patient seen and examined OBJECTIVE: Vital Signs Period Temp Pulse Resp BP Sys/Christensen Pulse Ox Last 24 Hr 97.7 F-98.5 F 59-65 15-20 124-176/46-83 96-100 PHYSICAL EXAM GENERAL: The patient is awake, alert, and fully oriented, in no acute distress. HEAD: Normal with no signs of trauma. EYES: PERRL, extraocular movements intact, sclera anicteric, conjunctiva clear. ENT: Ears normal, nares patent, oropharynx clear without exudates, moist mucous membranes. NECK: Trachea midline, full range of motion, supple. LUNGS: Breath sounds equal, clear to auscultation bilaterally, no wheezes, no crackles, no accessory muscle use. HEART: Regular rate and rhythm, S1, S2 without murmur, rub or gallop. ABDOMEN: Soft, nontender, nondistended, normoactive bowel sounds, no guarding, no rebound, no hepatosplenomegaly, no masses. EXTREMITIES: 2+ pulses, warm, well-perfused, no edema. NEUROLOGICAL: Cranial nerves II through XII grossly intact. Normal speech, gait not observed. PSYCH: Normal mood, normal affect. SKIN: Warm, dry, normal turgor, no rashes or lesions noted. LABS Laboratory Results - last 24 hr 06/18/20 06/18/20 06/19/20 20:42 20:42 02:13 WBC 6.3 RBC 3.26 L Hgb 10.4 L Hct 31.7 L MCV 97.4 H MCH 32.0 MCHC 32.9 RDW 15.3 Plt Count 204 MPV 11.3 H D Absolute Neuts (auto) 3.6 Neutrophils % 57.3 Lymphocytes % 30.7 D Monocytes % 7.8 Eosinophils % 3.2 Basophils % 1.0 Nucleated RBC % 0 Sodium 143 Potassium 4.7 Chloride 111 H Carbon Dioxide 26 Anion Gap 7 L BUN 43.1 H Creatinine 2.5 H Est GFR (CKD-EPI)AfAm 21.68 Est GFR (CKD-EPI)NonAf 18.71 Random Glucose 89 Calcium 9.0 Magnesium Total Bilirubin 0.3 AST 16 ALT 14 Alkaline Phosphatase 111 Creatine Kinase 107 Troponin I 0.02 0.03 B-Natriuretic Peptide 943.7 H Total Protein 7.8 Albumin 3.4 06/19/20 06/19/20 06:21 06:21 WBC 6.1 RBC 3.27 L Hgb 10.4 L Hct 31.5 L MCV 96.3 H MCH 31.7 MCHC 32.9 RDW 15.1 Plt Count 187 MPV 10.2 Absolute Neuts (auto) 3.4 Neutrophils % 54.9 Lymphocytes % 30.4 Monocytes % 10.1 Eosinophils % 3.9 Basophils % 0.7 Nucleated RBC % 0 Sodium 144 Potassium 4.4 Chloride 113 H Carbon Dioxide 26 Anion Gap 5 L BUN 38.5 H Creatinine 2.2 H Est GFR (CKD-EPI)AfAm 25.30 Est GFR (CKD-EPI)NonAf 21.83 Random Glucose 89 Calcium 8.9 Magnesium 2.2 Total Bilirubin 0.5 AST 13 L ALT 13 Alkaline Phosphatase 106 Creatine Kinase Troponin I 0.04 B-Natriuretic Peptide Total Protein 7.1 Albumin 3.2 L HOSPITAL COURSE: Date of Admission:06/18/20 69 y/o female with a PMHx significant for CAD, HFpEF, pAfib (no AC), Hypertension, Hyperlipidemia, CVA (residual deficit), COPD (2L-3L at home), TREY, CKD, Dementia. Who presents to the ED with chest pain, admitted for Atypical Chest pain, which resolved in ER. patient described a chest pain at rest, pressure like lasted 5 min and resolved spontaneously, no identifiable triggers. Denied any dyspnea, numbness/ nausea, vomiting, dizziness. Labs: troponin x3 negative, EKG showing no acute ST/T wave changes, first degree block, sinus tello. She received one dose furosemide in ER. cardiology consulted who recommended D/C home today for additional outpatient evaluation by her control manager. She is clinically stable for discharge and discharged with instructions and referrals as noted below Date of Discharge: 06/19/20 Minutes to complete discharge: 36 Discharge Summary Problems reviewed: Yes Reason For Visit: ACUTE CORONARY SYNDROME,ACUTE KIDNEY INJURY Current Active Problems Acute kidney injury superimposed on CKD (Acute) Chest pain (Acute) Encounter for screening laboratory testing for COVID-19 virus (Acute) Condition: Improved - Instructions Diet, Activity, Other Instructions: You came into the hospital for chest pain. Your heart was monitored and you were seen by the control manager. You are now stable for discharge Please continue your home medications as prescribed Please follow up with your primary care provider within 1 week for repeat chemistry panel Please follow up with your control manager within 2 weeks to monitor your heart failure, or you can follow up with the control manager we have provided for you. Dr. Rosado, office- [phone] Please continue a low fat low sodium diet If you have new, worsening, or concerning symptoms please return to the ER or call 911 Referrals: Manju Dickson MD [Primary Care Provider] - 1 Week Mohan Rosado MD [Staff Physician] - 1 Week Disposition: HOME - Home Medications Comprehensive Discharge Medication List: Ambulatory Orders Allopurinol [Zyloprim -] 100 mg PO DAILY 09/10/18 Donepezil HCl 10 mg PO HS 09/10/18 Valsartan [Diovan] 80 mg PO DAILY #30 tablet 08/16/19 Atorvastatin Ca [Lipitor] 80 mg PO HS 10/07/19 Pantoprazole Sodium [Protonix] 40 mg PO DAILY #30 tablet. 11/23/19 Furosemide 60 mg PO DAILY 02/17/20 Aspirin [ASA -] 81 mg PO DAILY #30 tab.chew 02/18/20 Carvedilol [Coreg] 6.25 mg PO BID #60 tablet 02/18/20 Isosorbide Mononitrate [Imdur -] 30 mg PO DAILY #30 tab.sr.24h 02/18/20 Nifedipine ER [Procardia XL -] 60 mg PO DAILY #30 tab.er.24 02/18/20 Ranolazine [Ranexa -] 500 mg PO BID #60 tab 02/18/20 Calcium Carbonate/Vitamin D3 [Calcium 600-D3 20Mcg(800 Unit)] 600 mg PO DAILY 06/19/20 Cholecalciferol (Vitamin D3) [Vitamin D3] 25 mcg PO DAILY 06/19/20 Fluticasone Propion/Salmeterol [Wixela 500-50 Inhub] 1 amp IH DAILY 06/19/20 This patient is new to me today: No Emergency Visit: Yes ED Registration Date: 06/18/20 Care time: The patient presented to the Emergency Department on the above date and was hospitalized for further evaluation of their emergent condition. Critical Care patient: No - Discharge Referral Referred to [facility] Med P.C.: No ATTENDING PHYSICIAN STATEMENT I saw and evaluated the patient. I reviewed the resident's note and discussed the case with the resident. I agree with the resident's findings and plan as documented. SUBJECTIVE: OBJECTIVE: ASSESSMENT AND PLAN:
[2020-06-19 16:38] VITALS: BP 164/75; PULSE 68
[2020-06-19] MEDS ORDERED: DONEPEZIL HCL 10 MG TABLET (FP) PO SCH (22:00)
[2020-06-19] MEDS ORDERED: ATORVASTATIN CA 80 MG TABLET (FP) PO SCH (22:00)
[2020-06-20] MEDS ORDERED: PATIENT'S OWN MEDICATION (NON-FORMULARY) (Fluticasone Propion/Salmeterol [Wixela 500-50 In IH SCH (10:00)
[2020-06-20] MEDS ORDERED: PANTOPRAZOLE 40 MG TABLET PO SCH (10:00)
[2020-06-20] MEDS ORDERED: ASPIRIN 81 MG CHEWABLE TABLETS PO SCH (10:00)
== END 2020-06-19 16:35 | disposition home or self-care (01) | DRG 683 ==
LOC: JER 17:20 → JERBED 19:00
PROVIDERS: ADMIT Internal Medicine; ATTEND Student in an Organized Health Care Education/Training Program
DX: N17.9 Acute kidney failure, unspecified (principal); I50.32 Chronic diastolic (congestive) heart failure; I13.0 Hypertensive heart and chronic kidney disease with heart failure and stage 1 through stage 4 chronic kidney disease, or unspecified chronic kidney disease; I25.118 Atherosclerotic heart disease of native coronary artery with other forms of angina pectoris; K22.4 Dyskinesia of esophagus; F03.90 Unspecified dementia, unspecified severity, without behavioral disturbance, psychotic disturbance, mood disturbance, and anxiety; J44.9 Chronic obstructive pulmonary disease, unspecified; K57.90 Diverticulosis of intestine, part unspecified, without perforation or abscess without bleeding; I44.0 Atrioventricular block, first degree; N18.9 Chronic kidney disease, unspecified; G40.909 Epilepsy, unspecified, not intractable, without status epilepticus; J45.909 Unspecified asthma, uncomplicated; E78.00 Pure hypercholesterolemia, unspecified; I48.0 Paroxysmal atrial fibrillation; D63.1 Anemia in chronic kidney disease; E66.01 Morbid (severe) obesity due to excess calories; Z68.32 Body mass index [BMI] 32.0-32.9, adult; R07.89 Other chest pain; G47.33 Obstructive sleep apnea (adult) (pediatric); R00.1 Bradycardia, unspecified; E78.5 Hyperlipidemia, unspecified
CPT/HCPCS: 36415; 71045-TC-FY; 80053; 82550; 83735; 83880; 84484; 85025; 93005; 93010; 99285-25; U0003

== ENCOUNTER 2020-08-06 04:20 | Inpatient (IN) | payer OTHER ==
[2020-08-06] MEDS ORDERED: RAPID SEQUENCE INTUBATION KIT NR ONE (04:26)
[2020-08-06] MEDS ORDERED: FENTANYL IVPB 500 MCG/100 ML BAG IVPB SCH (05:00)
[2020-08-06] MEDS ORDERED: PROPOFOL 1,000,000 MCG/100 ML VIAL ONE ×2 (05:08→07:47)
[2020-08-06 05:18] LABS: BASO % 0.6 % (0-2.0); EOS % 4.7 % (0-4.5); HEMOGLOBIN 10.3 GM/dL (10.7-15.3); LYMPH % 44.6 % (8-40); MCH 31.1 pg (25.7-33.7); MCHC 32.1 g/dl (32.0-36.0); MEAN CELL VOLUME 96.9 fl (80-96); MEAN PLT VOLUME 10.4 fl (7.5-11.1); MONO % 6.2 % (3.8-10.2); NEUT % 43.9 % (42.8-82.8); PLATELET COUNT 234 K/MM3 (134-434); RDW 15.4 % (11.6-15.6); WHITE BLOOD COUNT 5.9 K/mm3 (4.0-10.0)
[2020-08-06] MEDS ORDERED: FUROSEMIDE 100 MG/10 ML INJECTABLE VIAL IVPB ONE (05:19)
[2020-08-06 05:21] LABS: POTASSIUM 4.4 mmol/L (3.5-5.1); PROTHROMBIN TIME (PATIENT) 12.3 SEC (9.7-13.0)
[2020-08-06 05:23] LABS: ALBUMIN 3.2 g/dl (3.4-5.0); BLOOD UREA NITROGEN 26.9 mg/dL (7-18); CALCIUM 9.2 mg/dL (8.5-10.1); MAGNESIUM 2.3 mg/dL (1.8-2.4); VENOUS BASE EXCESS -6.3 mmol/L (-2-2); VENOUS O2 SATURATION 81.5 % (70-80); VENOUS PCO2 59.8 mmHg (38-52)
[2020-08-06] MEDS ORDERED: ALBUTEROL SO4 0.083% IH SOL 2.5 MG/3 ML VIAL.NEB. NEB ONE (05:23)
[2020-08-06] MEDS ORDERED: methylPREDNISolone NA SUCC 125 MG/2 ML VIAL IVPUSH ONE (05:23)
[2020-08-06 05:24] LABS: ACTIVATED PTT 25.5 SECONDS (25.2-36.5); VENOUS PH 7.19 (7.310-7.410)
[2020-08-06] MEDS: PROPOFOL 1,000,000 MCG/100 ML VIAL IVPB SCH (05:25)
[2020-08-06 05:26] LABS: CREATININE 1.9 mg/dL (0.55-1.3); PHOSPHOROUS 4.1 mg/dL (2.5-4.9)
[2020-08-06 05:28] LABS: BILIRUBIN,TOTAL 0.4 mg/dL (0.2-1); TOT PROT 7.7 g/dl (6.4-8.2)
[2020-08-06 05:32] LABS: N-TERMINAL BNP 3946.2 pg/ml (5-125)
[2020-08-06] MEDS ORDERED: FUROSEMIDE 40 MG/4 ML INJECTABLE VIAL ONE (05:59)
[2020-08-06] MEDS ORDERED: methylPREDNISolone NA SUCC 125 MG/2 ML VIAL ONE (05:59)
[2020-08-06 06:00] LABS: ARTERIAL BLD GAS O2 SATURATION 91.6 mmHg (95-98); ARTERIAL BLOOD GAS BASE EXCESS -5.3 mmol/L (-2-2); ARTERIAL BLOOD GAS PO2 74.7 mmHg (80-100); ARTERIAL BLOOD GAS pH 7.209 (7.350-7.450)
[2020-08-06 06:01] LABS: ALLENS TEST POSITIVE; VENT MODE A/C
[2020-08-06 06:02] LABS: EPI CELLS 21 /uL (0-25.1); HYALINE CASTS 5 /uL (0-3.1); URINE APPEARANCE CLEAR; URINE BACTERIA 25 /uL (0-1359); URINE BILIRUBIN NEGATIVE (NEGATIVE); URINE COLOR YELLOW; URINE GLUCOSE (UA) NEGATIVE (NEGATIVE); URINE KETONE NEGATIVE (NEGATIVE); URINE LEUK ESTERASE NEGATIVE (NEGATIVE); URINE NITRITE NEGATIVE (NEGATIVE); URINE PROTEIN 2+ (NEGATIVE); URINE RBC 3 /uL (0-23.9); URINE WBC 3 /uL (0-25.8)
[2020-08-06 06:02] LABS: VENT RATE 14
[2020-08-06] MEDS ORDERED: ETOMIDATE 40 MG/20 ML VIAL IVPUSH ONE (06:58)
[2020-08-06] MEDS ORDERED: ROCURONIUM BROMIDE 50 MG/5 ML VIAL IV ONE (06:58)
[2020-08-06] MEDS: INSULIN SLIDING SCALE (NOVOLOG) 1 VIAL SQ SCH ×3 (07:09→18:23)
[2020-08-06] MEDS: FENTANYL NS IVPB 500 MCG/100 ML BAG IVPB SCH (07:12)
[2020-08-06 13:12] LABS: ARTERIAL BLD GAS O2 SATURATION 98.2 mmHg (95-98); ARTERIAL BLOOD GAS BASE EXCESS -0.6 mmol/L (-2-2); ARTERIAL BLOOD GAS PO2 117.5 mmHg (80-100); ARTERIAL BLOOD GAS pH 7.379 (7.350-7.450)
[2020-08-06 13:15] LABS: ALLENS TEST POSITIVE; VENT MODE A/C
[2020-08-06 13:16] LABS: VENT RATE 14
[2020-08-06] MEDS: HEPARIN NA (PORCINE) 5,000 UNITS/ML 1ML VIAL SQ SCH ×2 (14:00→21:26)
[2020-08-06] MEDS: ISOSORBIDE MONONITRATE 30 MG TAB.SR.24H (FP) PO SCH (14:00)
[2020-08-06] MEDS: CARVEDILOL 6.25 MG TABLET (FP) PO SCH ×2 (14:19→21:26)
[2020-08-06] MEDS: MUPIROCIN 2% TOPICAL OINTMENT FOR DECOLONIZATION NS SCH (14:20)
[2020-08-06] MEDS: ASPIRIN COATED 81 MG TABLET.EC PO SCH (14:20)
[2020-08-06] MEDS: NIFEdipine E.R 60 MG TABLET PO SCH (14:20)
[2020-08-06] MEDS: CHLORHEXIDINE GLUCONATE 4% CLEANSER FOR DECOLONIZATION TP SCH (21:26)
[2020-08-07] MEDS: INSULIN SLIDING SCALE (NOVOLOG) 1 VIAL SQ SCH ×5 (00:34→23:27)
[2020-08-07] MEDS: FENTANYL NS IVPB 500 MCG/100 ML BAG IVPB SCH (01:00)
[2020-08-07] MEDS: MUPIROCIN 2% TOPICAL OINTMENT FOR DECOLONIZATION NS SCH ×3 (01:26→22:43)
[2020-08-07 06:01] LABS: BASO % 0.3 % (0-2.0); HEMATOCRIT 32.1 % (32.4-45.2); HEMOGLOBIN 10.3 GM/dL (10.7-15.3); LYMPH % 9.7 % (8-40); MCH 30.8 pg (25.7-33.7); MCHC 31.9 g/dl (32.0-36.0); MEAN CELL VOLUME 96.4 fl (80-96); MEAN PLT VOLUME 10.4 fl (7.5-11.1); MONO % 5.6 % (3.8-10.2); NEUT % 84.4 % (42.8-82.8); PLATELET COUNT 235 K/MM3 (134-434); RBC 3.33 M/mm3 (3.60-5.2); RDW 15.4 % (11.6-15.6); WHITE BLOOD COUNT 12.8 K/mm3 (4.0-10.0)
[2020-08-07] MEDS: HEPARIN NA (PORCINE) 5,000 UNITS/ML 1ML VIAL SQ SCH ×3 (06:17→22:44)
[2020-08-07] MEDS: PROPOFOL 1,000,000 MCG/100 ML VIAL IVPB SCH ×2 (06:17→10:56)
[2020-08-07 06:24] LABS: MAGNESIUM 2.1 mg/dL (1.8-2.4)
[2020-08-07 06:27] LABS: PHOSPHOROUS 4.7 mg/dL (2.5-4.9)
[2020-08-07 07:22] LABS: POTASSIUM 4.2 mmol/L (3.5-5.1)
[2020-08-07] MEDS ORDERED: PIPERACILLIN/TAZOB 3.375 GM 3.375 GM in DEXTROSE 5%-WATER - 50 ML IVPB SCH (07:30)
[2020-08-07 07:55] LABS: CALCIUM 9.4 mg/dL (8.5-10.1)
[2020-08-07] MEDS ORDERED: ACETAMINOPHEN 1000 MG/100 ML VIAL (NON FORMULARY) IVPB PRN (07:55)
[2020-08-07 07:56] LABS: BLOOD UREA NITROGEN 30.6 mg/dL (7-18)
[2020-08-07 08:00] LABS: BILIRUBIN,TOTAL 0.4 mg/dL (0.2-1); TOT PROT 7.4 g/dl (6.4-8.2)
[2020-08-07] MEDS ORDERED: FUROSEMIDE 40 MG/4 ML INJECTABLE VIAL IVPUSH SCH (10:00)
[2020-08-07] MEDS ORDERED: PIPERACILLIN/TAZOBACTAM 3.375 GM VIAL IVPB ONE (10:58)
[2020-08-07] MEDS ORDERED: DEXTROSE 5%-WATER - 50 ML IVPB ONE (10:58)
[2020-08-07] MEDS: ASPIRIN COATED 81 MG TABLET.EC PO SCH (11:14)
[2020-08-07] MEDS: CARVEDILOL 6.25 MG TABLET (FP) PO SCH ×2 (11:14→22:44)
[2020-08-07] MEDS: FUROSEMIDE 40 MG/4 ML INJECTABLE VIAL IVPUSH SCH (11:16)
[2020-08-07] MEDS ORDERED: PROPOFOL 1,000,000 MCG/100 ML VIAL ONE (13:56)
[2020-08-07] MEDS: ASPIRIN 81 MG CHEWABLE TABLETS PO SCH (17:18)
[2020-08-07] MEDS: ISOSORBIDE MONONITRATE 30 MG TAB.SR.24H (FP) PO SCH (20:16)
[2020-08-07] MEDS: NIFEdipine E.R 60 MG TABLET PO SCH (20:16)
[2020-08-07] MEDS ORDERED: DEXTROSE 50%-WATER 25 GM/50 ML DISP.SYRIN ONE (22:14)
[2020-08-07] MEDS: CHLORHEXIDINE GLUCONATE 4% CLEANSER FOR DECOLONIZATION TP SCH (22:44)
[2020-08-08] MEDS: HEPARIN NA (PORCINE) 5,000 UNITS/ML 1ML VIAL SQ SCH ×3 (06:24→22:00)
[2020-08-08] MEDS: INSULIN SLIDING SCALE (NOVOLOG) 1 VIAL SQ SCH ×4 (07:06→22:00)
[2020-08-08 07:25] LABS: BASO % 0.9 % (0-2.0); EOS % 2.2 % (0-4.5); HEMATOCRIT 26.9 % (32.4-45.2); HEMOGLOBIN 8.8 GM/dL (10.7-15.3); LYMPH % 20.6 % (8-40); MCH 31.2 pg (25.7-33.7); MCHC 32.7 g/dl (32.0-36.0); MEAN CELL VOLUME 95.5 fl (80-96); MEAN PLT VOLUME 10.3 fl (7.5-11.1); MONO % 8.1 % (3.8-10.2); NEUT % 68.2 % (42.8-82.8); PLATELET COUNT 198 K/MM3 (134-434); RBC 2.81 M/mm3 (3.60-5.2); RDW 15.2 % (11.6-15.6); WHITE BLOOD COUNT 10.2 K/mm3 (4.0-10.0)
[2020-08-08 07:40] LABS: POTASSIUM 3.8 mmol/L (3.5-5.1)
[2020-08-08 07:42] LABS: CALCIUM 8.8 mg/dL (8.5-10.1)
[2020-08-08 07:43] LABS: ALBUMIN 2.7 g/dl (3.4-5.0); MAGNESIUM 2.2 mg/dL (1.8-2.4)
[2020-08-08 07:46] LABS: CREATININE 3.2 mg/dL (0.55-1.3)
[2020-08-08 07:47] LABS: PHOSPHOROUS 4.7 mg/dL (2.5-4.9)
[2020-08-08 07:48] LABS: BILIRUBIN,TOTAL 0.4 mg/dL (0.2-1); TOT PROT 6.4 g/dl (6.4-8.2)
[2020-08-08] MEDS: PROPOFOL 1,000,000 MCG/100 ML VIAL IVPB SCH ×4 (09:27→20:25)
[2020-08-08] MEDS: ASPIRIN 81 MG CHEWABLE TABLETS PO SCH (09:27)
[2020-08-08] MEDS: FENTANYL NS IVPB 500 MCG/100 ML BAG IVPB SCH ×2 (09:27→17:24)
[2020-08-08] MEDS: CARVEDILOL 6.25 MG TABLET (FP) PO SCH (09:27)
[2020-08-08] MEDS: FUROSEMIDE 40 MG/4 ML INJECTABLE VIAL IVPUSH SCH (09:45)
[2020-08-08] MEDS ORDERED: PIPERACILLIN/TAZOB 3.375 GM 3.375 GM in DEXTROSE 5%-WATER - 50 ML IVPB SCH ×2 (10:00→18:00)
[2020-08-08] MEDS: MUPIROCIN 2% TOPICAL OINTMENT FOR DECOLONIZATION NS SCH ×2 (13:10→22:15)
[2020-08-08] MEDS ORDERED: DEXTROSE 5%-WATER - 50 ML IVPB ONE (17:13)
[2020-08-08] MEDS ORDERED: PIPERACILLIN/TAZOBACTAM 3.375 GM VIAL IVPB ONE (17:13)
[2020-08-08] MEDS: PIPERACILLIN/TAZOB 3.375 GM 3.375 GM in DEXTROSE 5%-WATER - 50 ML IVPB SCH (17:17)
[2020-08-08] MEDS: CHLORHEXIDINE GLUCONATE 4% CLEANSER FOR DECOLONIZATION TP SCH (22:26)
[2020-08-09] MEDS: FENTANYL NS IVPB 500 MCG/100 ML BAG IVPB SCH ×3 (01:16→21:00)
[2020-08-09] MEDS: PROPOFOL 1,000,000 MCG/100 ML VIAL IVPB SCH ×3 (01:17→21:03)
[2020-08-09] MEDS: PIPERACILLIN/TAZOB 3.375 GM 3.375 GM in DEXTROSE 5%-WATER - 50 ML IVPB SCH ×3 (02:00→17:30)
[2020-08-09] MEDS: HEPARIN NA (PORCINE) 5,000 UNITS/ML 1ML VIAL SQ SCH ×3 (06:00→23:16)
[2020-08-09] MEDS: FUROSEMIDE 40 MG/4 ML INJECTABLE VIAL IVPUSH SCH ×2 (06:00→14:00)
[2020-08-09] MEDS: INSULIN SLIDING SCALE (NOVOLOG) 1 VIAL SQ SCH ×4 (07:00→22:00)
[2020-08-09 07:31] LABS: CHLORIDE 98 mmol/L (98-107); POTASSIUM 3.8 mmol/L (3.5-5.1); SODIUM 130 mmol/L (136-145)
[2020-08-09 07:36] LABS: ALBUMIN 2.3 g/dl (3.4-5.0)
[2020-08-09 07:37] LABS: ANION GAP 10 MMOL/L (8-16); CO2 22 mmol/L (21-32); GLUCOSE,RANDOM 115 mg/dL (74-106); MAGNESIUM 2.1 mg/dL (1.8-2.4)
[2020-08-09 07:39] LABS: PHOSPHOROUS 5.5 mg/dL (2.5-4.9)
[2020-08-09 07:40] LABS: BILIRUBIN,TOTAL 1.7 mg/dL (0.2-1); CREATININE 3.5 mg/dL (0.55-1.3)
[2020-08-09 07:49] LABS: BASO % 0.1 % (0-2.0); HEMATOCRIT 27.1 % (32.4-45.2); HEMOGLOBIN 10.1 GM/dL (10.7-15.3); LYMPH % 20.5 % (8-40); MCH 35.9 pg (25.7-33.7); MCHC 37.4 g/dl (32.0-36.0); MEAN CELL VOLUME 96.1 fl (80-96); MEAN PLT VOLUME 11.4 fl (7.5-11.1); MONO % 8.3 % (3.8-10.2); NEUT % 66.1 % (42.8-82.8); PLATELET COUNT 157 K/MM3 (134-434); RBC 2.82 M/mm3 (3.60-5.2); RDW 15.3 % (11.6-15.6); WHITE BLOOD COUNT 7.8 K/mm3 (4.0-10.0)
[2020-08-09] MEDS ORDERED: LABETALOL HCL 5 MG/1 ML (100MG/20 ML VIAL) IVPUSH ONE (08:15)
[2020-08-09 09:08] LABS: ALK PHOS 77 U/L (45-117); BLOOD UREA NITROGEN 51.1 mg/dL (7-18); CALCIUM 6.6 mg/dL (8.5-10.1); TOT PROT 5.9 g/dl (6.4-8.2)
[2020-08-09] MEDS ORDERED: DEXTROSE 5%-WATER - 50 ML IVPB ONE ×2 (09:11→17:28)
[2020-08-09] MEDS ORDERED: PIPERACILLIN/TAZOBACTAM 3.375 GM VIAL IVPB ONE ×2 (09:11→17:27)
[2020-08-09] MEDS: MUPIROCIN 2% TOPICAL OINTMENT FOR DECOLONIZATION NS SCH ×2 (10:00→22:41)
[2020-08-09] MEDS: ASPIRIN 81 MG CHEWABLE TABLETS PO SCH (11:53)
[2020-08-09] MEDS: CARVEDILOL 6.25 MG TABLET (FP) PO SCH ×2 (11:53→22:00)
[2020-08-09] MEDS: CHLORHEXIDINE GLUCONATE 4% CLEANSER FOR DECOLONIZATION TP SCH (22:41)
[2020-08-09 23:42] LABS: ALBUMIN 2.7 g/dl (3.4-5.0); POTASSIUM 4.2 mmol/L (3.5-5.1)
[2020-08-09 23:43] LABS: BLOOD UREA NITROGEN 69.7 mg/dL (7-18); CALCIUM 8.7 mg/dL (8.5-10.1)
[2020-08-09 23:48] LABS: BILIRUBIN,TOTAL 0.5 mg/dL (0.2-1)
[2020-08-10] MEDS ORDERED: DEXTROSE 5%-WATER - 50 ML IVPB ONE ×3 (01:43→17:57)
[2020-08-10] MEDS ORDERED: PIPERACILLIN/TAZOBACTAM 3.375 GM VIAL IVPB ONE ×3 (01:43→17:57)
[2020-08-10] MEDS: PROPOFOL 1,000,000 MCG/100 ML VIAL IVPB SCH ×4 (02:00→22:32)
[2020-08-10] MEDS: FENTANYL NS IVPB 500 MCG/100 ML BAG IVPB SCH ×4 (02:00→22:32)
[2020-08-10] MEDS: PIPERACILLIN/TAZOB 3.375 GM 3.375 GM in DEXTROSE 5%-WATER - 50 ML IVPB SCH ×3 (02:30→17:58)
[2020-08-10] MEDS: HEPARIN NA (PORCINE) 5,000 UNITS/ML 1ML VIAL SQ SCH ×3 (06:45→22:20)
[2020-08-10] MEDS: INSULIN SLIDING SCALE (NOVOLOG) 1 VIAL SQ SCH ×4 (06:47→22:00)
[2020-08-10 07:29] LABS: POTASSIUM 4.6 mmol/L (3.5-5.1)
[2020-08-10 07:31] LABS: CALCIUM 8.3 mg/dL (8.5-10.1)
[2020-08-10 07:32] LABS: ALBUMIN 2.6 g/dl (3.4-5.0); BLOOD UREA NITROGEN 75.4 mg/dL (7-18)
[2020-08-10 07:35] LABS: CREATININE 5.5 mg/dL (0.55-1.3)
[2020-08-10 07:37] LABS: BILIRUBIN,TOTAL 0.5 mg/dL (0.2-1); TOT PROT 6.7 g/dl (6.4-8.2)
[2020-08-10] MEDS: ASPIRIN 81 MG CHEWABLE TABLETS PO SCH (09:29)
[2020-08-10] MEDS: MUPIROCIN 2% TOPICAL OINTMENT FOR DECOLONIZATION NS SCH ×2 (09:29→22:13)
[2020-08-10] MEDS: CARVEDILOL 6.25 MG TABLET (FP) PO SCH ×2 (09:29→22:20)
[2020-08-10] MEDS ORDERED: SODIUM CHLORIDE 250 ML IV STA ×2 (14:06→18:44)
[2020-08-10] MEDS: CHLORHEXIDINE GLUCONATE 4% CLEANSER FOR DECOLONIZATION TP SCH (22:13)
[2020-08-11] MEDS: PIPERACILLIN/TAZOB 3.375 GM 3.375 GM in DEXTROSE 5%-WATER - 50 ML IVPB SCH ×3 (02:00→17:38)
[2020-08-11] MEDS ORDERED: DEXTROSE 5%-WATER - 50 ML IVPB ONE ×3 (03:13→17:19)
[2020-08-11] MEDS ORDERED: PIPERACILLIN/TAZOBACTAM 3.375 GM VIAL IVPB ONE ×3 (03:13→17:18)
[2020-08-11] MEDS: INSULIN SLIDING SCALE (NOVOLOG) 1 VIAL SQ SCH ×4 (07:00→21:46)
[2020-08-11] MEDS: PROPOFOL 1,000,000 MCG/100 ML VIAL IVPB SCH ×3 (08:00→19:34)
[2020-08-11] MEDS: FENTANYL NS IVPB 500 MCG/100 ML BAG IVPB SCH (08:30)
[2020-08-11 08:40] LABS: HEMATOCRIT 32.3 % (32.4-45.2); HEMOGLOBIN 10.5 GM/dL (10.7-15.3); MCHC 32.3 g/dl (32.0-36.0); PLATELET COUNT 171 K/MM3 (134-434); RBC 3.37 M/mm3 (3.60-5.2); RDW 14.9 % (11.6-15.6)
[2020-08-11 09:03] LABS: POTASSIUM 4.6 mmol/L (3.5-5.1)
[2020-08-11 09:05] LABS: ALBUMIN 2.4 g/dl (3.4-5.0); BLOOD UREA NITROGEN 86.5 mg/dL (7-18); MAGNESIUM 2.6 mg/dL (1.8-2.4)
[2020-08-11 09:08] LABS: CREATININE 5.6 mg/dL (0.55-1.3)
[2020-08-11 09:10] LABS: BILIRUBIN,TOTAL 0.8 mg/dL (0.2-1)
[2020-08-11 10:12] LABS: TOT PROT 6.6 g/dl (6.4-8.2)
[2020-08-11 10:14] LABS: PHOSPHOROUS 9.9 mg/dL (2.5-4.9)
[2020-08-11] MEDS: ASPIRIN 81 MG CHEWABLE TABLETS PO SCH (10:33)
[2020-08-11] MEDS: MUPIROCIN 2% TOPICAL OINTMENT FOR DECOLONIZATION NS SCH (10:35)
[2020-08-11] MEDS: CARVEDILOL 6.25 MG TABLET (FP) PO SCH ×2 (10:49→21:42)
[2020-08-11] MEDS ORDERED: SODIUM CHLORIDE 0.45% 1,000 ML IV SCH ×2 (13:30)
[2020-08-11] MEDS: HEPARIN NA (PORCINE) 5,000 UNITS/ML 1ML VIAL SQ SCH ×2 (13:54→21:42)
[2020-08-11] MEDS: SEVELAMER CARBONATE 2.4 GM POWDER PACKET PO SCH (17:34)
[2020-08-11] MEDS: CHLORHEXIDINE GLUCONATE 4% CLEANSER FOR DECOLONIZATION TP SCH (21:43)
[2020-08-12] MEDS: PROPOFOL 1,000,000 MCG/100 ML VIAL IVPB SCH ×2 (00:21→05:30)
[2020-08-12] MEDS ORDERED: DEXTROSE 5%-WATER - 50 ML IVPB ONE ×3 (01:24→17:00)
[2020-08-12] MEDS ORDERED: PIPERACILLIN/TAZOBACTAM 3.375 GM VIAL IVPB ONE ×3 (01:24→17:00)
[2020-08-12] MEDS: PIPERACILLIN/TAZOB 3.375 GM 3.375 GM in DEXTROSE 5%-WATER - 50 ML IVPB SCH ×3 (01:26→17:21)
[2020-08-12] MEDS: HEPARIN NA (PORCINE) 5,000 UNITS/ML 1ML VIAL SQ SCH ×3 (05:56→21:27)
[2020-08-12] MEDS: INSULIN SLIDING SCALE (NOVOLOG) 1 VIAL SQ SCH ×4 (06:07→21:33)
[2020-08-12 07:04] LABS: BASO % 0.9 % (0-2.0); EOS % 6.2 % (0-4.5); HEMATOCRIT 26.9 % (32.4-45.2); HEMOGLOBIN 9.2 GM/dL (10.7-15.3); LYMPH % 11.8 % (8-40); MCH 32.9 pg (25.7-33.7); MCHC 34.3 g/dl (32.0-36.0); MEAN CELL VOLUME 95.9 fl (80-96); MEAN PLT VOLUME 11.3 fl (7.5-11.1); MONO % 11.9 % (3.8-10.2); NEUT % 69.2 % (42.8-82.8); PLATELET COUNT 159 K/MM3 (134-434); RDW 14.9 % (11.6-15.6); WHITE BLOOD COUNT 8.9 K/mm3 (4.0-10.0)
[2020-08-12 07:13] LABS: POTASSIUM 5.1 mmol/L (3.5-5.1)
[2020-08-12 07:18] LABS: CALCIUM 7.6 mg/dL (8.5-10.1)
[2020-08-12 07:19] LABS: ALBUMIN 2.2 g/dl (3.4-5.0); MAGNESIUM 2.5 mg/dL (1.8-2.4)
[2020-08-12 08:13] LABS: BLOOD UREA NITROGEN 102.7 mg/dL (7-18); CREATININE 6.4 mg/dL (0.55-1.3); TOT PROT 6.2 g/dl (6.4-8.2)
[2020-08-12 08:18] LABS: PHOSPHOROUS 10.9 mg/dL (2.5-4.9)
[2020-08-12] MEDS: SEVELAMER CARBONATE 2.4 GM POWDER PACKET PO SCH ×3 (09:41→17:21)
[2020-08-12] MEDS: CARVEDILOL 6.25 MG TABLET (FP) PO SCH ×2 (09:42→21:27)
[2020-08-12] MEDS: ASPIRIN 81 MG CHEWABLE TABLETS PO SCH (09:42)
[2020-08-12] MEDS ORDERED: SODIUM CHLORIDE 250 ML IV STA (14:59)
[2020-08-12] MEDS: SODIUM CHLORIDE 1,000 ML IV SCH (16:14)
[2020-08-12] MEDS: CHLORHEXIDINE GLUCONATE 4% CLEANSER FOR DECOLONIZATION TP SCH (21:27)
[2020-08-12 22:23] LABS: EPI CELLS 23 /uL (0-25.1); HYALINE CASTS 1 /uL (0-3.1); URINE APPEARANCE CLOUDY; URINE BACTERIA 9 /uL (0-1359); URINE BILIRUBIN NEGATIVE (NEGATIVE); URINE COLOR YELLOW; URINE GLUCOSE (UA) NEGATIVE (NEGATIVE); URINE KETONE NEGATIVE (NEGATIVE); URINE LEUK ESTERASE NEGATIVE (NEGATIVE); URINE NITRITE NEGATIVE (NEGATIVE); URINE PROTEIN 1+ (NEGATIVE); URINE RBC 341 /uL (0-23.9); URINE WBC 27 /uL (0-25.8)
[2020-08-13] MEDS ORDERED: DEXTROSE 5%-WATER - 50 ML IVPB ONE ×4 (01:07→22:16)
[2020-08-13] MEDS ORDERED: PIPERACILLIN/TAZOBACTAM 3.375 GM VIAL IVPB ONE ×4 (01:07→22:16)
[2020-08-13] MEDS: PIPERACILLIN/TAZOB 3.375 GM 3.375 GM in DEXTROSE 5%-WATER - 50 ML IVPB SCH ×3 (01:12→22:19)
[2020-08-13] MEDS: PROPOFOL 1,000,000 MCG/100 ML VIAL IVPB SCH (06:17)
[2020-08-13] MEDS: INSULIN SLIDING SCALE (NOVOLOG) 1 VIAL SQ SCH ×4 (06:17→22:29)
[2020-08-13] MEDS: HEPARIN NA (PORCINE) 5,000 UNITS/ML 1ML VIAL SQ SCH (06:19)
[2020-08-13 06:54] LABS: EOS % 6.4 % (0-4.5); HEMATOCRIT 25.9 % (32.4-45.2); HEMOGLOBIN 8.5 GM/dL (10.7-15.3); LYMPH % 10.6 % (8-40); MCH 31.1 pg (25.7-33.7); MCHC 32.9 g/dl (32.0-36.0); MEAN CELL VOLUME 94.7 fl (80-96); MONO % 12.7 % (3.8-10.2); NEUT % 69.3 % (42.8-82.8); PLATELET COUNT 172 K/MM3 (134-434); RBC 2.74 M/mm3 (3.60-5.2); RDW 14.6 % (11.6-15.6); WHITE BLOOD COUNT 9.9 K/mm3 (4.0-10.0)
[2020-08-13 07:10] LABS: POTASSIUM 4.7 mmol/L (3.5-5.1)
[2020-08-13 07:12] LABS: CALCIUM 8.5 mg/dL (8.5-10.1)
[2020-08-13 07:13] LABS: ALBUMIN 2.4 g/dl (3.4-5.0)
[2020-08-13 07:16] LABS: CREATININE 5.6 mg/dL (0.55-1.3)
[2020-08-13 07:18] LABS: BILIRUBIN,TOTAL 0.6 mg/dL (0.2-1); TOT PROT 6.6 g/dl (6.4-8.2)
[2020-08-13 07:42] LABS: BLOOD UREA NITROGEN 116.1 mg/dL (7-18)
[2020-08-13 07:53] LABS: PHOSPHOROUS 9.8 mg/dL (2.5-4.9)
[2020-08-13] MEDS: ASPIRIN 81 MG CHEWABLE TABLETS PO SCH (09:37)
[2020-08-13] MEDS: SEVELAMER CARBONATE 2.4 GM POWDER PACKET PO SCH ×2 (09:37→16:53)
[2020-08-13] MEDS: CARVEDILOL 6.25 MG TABLET (FP) PO SCH ×2 (09:38→22:19)
[2020-08-13] MEDS: SODIUM CHLORIDE 1,000 ML IV SCH (15:46)
[2020-08-13] MEDS: CHLORHEXIDINE GLUCONATE 4% CLEANSER FOR DECOLONIZATION TP SCH (22:20)
[2020-08-14] MEDS: PIPERACILLIN/TAZOB 3.375 GM 3.375 GM in DEXTROSE 5%-WATER - 50 ML IVPB SCH ×3 (02:00→17:31)
[2020-08-14] MEDS: SODIUM CHLORIDE 1,000 ML IV SCH ×2 (03:27→17:26)
[2020-08-14] MEDS: PROPOFOL 1,000,000 MCG/100 ML VIAL IVPB SCH (05:33)
[2020-08-14 07:01] LABS: BASO % 0.9 % (0-2.0); EOS % 6.6 % (0-4.5); HEMOGLOBIN 7.6 GM/dL (10.7-15.3); LYMPH % 11.9 % (8-40); MCH 31.4 pg (25.7-33.7); MCHC 32.9 g/dl (32.0-36.0); MEAN CELL VOLUME 95.3 fl (80-96); MEAN PLT VOLUME 10.9 fl (7.5-11.1); MONO % 12.3 % (3.8-10.2); NEUT % 68.3 % (42.8-82.8); PLATELET COUNT 173 K/MM3 (134-434); RBC 2.42 M/mm3 (3.60-5.2); WHITE BLOOD COUNT 9.7 K/mm3 (4.0-10.0)
[2020-08-14 07:27] LABS: POTASSIUM 3.9 mmol/L (3.5-5.1)
[2020-08-14 07:32] LABS: CALCIUM 8.8 mg/dL (8.5-10.1)
[2020-08-14 07:33] LABS: ALBUMIN 2.2 g/dl (3.4-5.0); MAGNESIUM 3.2 mg/dL (1.8-2.4)
[2020-08-14 07:36] LABS: CREATININE 4.3 mg/dL (0.55-1.3); PHOSPHOROUS 7.4 mg/dL (2.5-4.9)
[2020-08-14 07:37] LABS: BILIRUBIN,TOTAL 0.6 mg/dL (0.2-1); TOT PROT 6.3 g/dl (6.4-8.2)
[2020-08-14 07:45] LABS: BLOOD UREA NITROGEN 124.2 mg/dL (7-18)
[2020-08-14] MEDS: INSULIN SLIDING SCALE (NOVOLOG) 1 VIAL SQ SCH ×4 (08:51→23:29)
[2020-08-14] MEDS ORDERED: PIPERACILLIN/TAZOBACTAM 3.375 GM VIAL IVPB ONE ×3 (08:54→22:35)
[2020-08-14] MEDS ORDERED: DEXTROSE 5%-WATER - 50 ML IVPB ONE ×3 (08:55→22:36)
[2020-08-14] MEDS: AMINO ACIDS/PROTEIN HYDROLYS 30 ML LIQUID.PKT PO SCH (09:01)
[2020-08-14] MEDS: ASPIRIN 81 MG CHEWABLE TABLETS PO SCH (09:02)
[2020-08-14] MEDS: SEVELAMER CARBONATE 2.4 GM POWDER PACKET PO SCH ×3 (09:02→17:27)
[2020-08-14] MEDS: CARVEDILOL 6.25 MG TABLET (FP) PO SCH ×2 (09:03→22:49)
[2020-08-14] MEDS: HEPARIN NA (PORCINE) 5,000 UNITS/ML 1ML VIAL SQ SCH ×3 (13:22→22:50)
[2020-08-14] MEDS: CHLORHEXIDINE GLUCONATE 4% CLEANSER FOR DECOLONIZATION TP SCH (23:30)
[2020-08-15] MEDS: PIPERACILLIN/TAZOB 3.375 GM 3.375 GM in DEXTROSE 5%-WATER - 50 ML IVPB SCH ×3 (01:54→17:25)
[2020-08-15] MEDS: HEPARIN NA (PORCINE) 5,000 UNITS/ML 1ML VIAL SQ SCH ×3 (06:57→21:14)
[2020-08-15] MEDS: INSULIN SLIDING SCALE (NOVOLOG) 1 VIAL SQ SCH ×4 (06:57→21:19)
[2020-08-15 07:51] LABS: BASO % 0.8 % (0-2.0); EOS % 5.4 % (0-4.5); HEMOGLOBIN 7.6 GM/dL (10.7-15.3); LYMPH % 12.2 % (8-40); MCH 31.3 pg (25.7-33.7); MCHC 32.8 g/dl (32.0-36.0); MEAN CELL VOLUME 95.3 fl (80-96); MEAN PLT VOLUME 10.9 fl (7.5-11.1); NEUT % 70.6 % (42.8-82.8); PLATELET COUNT 195 K/MM3 (134-434); RBC 2.42 M/mm3 (3.60-5.2); RDW 14.6 % (11.6-15.6); WHITE BLOOD COUNT 9.8 K/mm3 (4.0-10.0)
[2020-08-15 08:02] LABS: CALCIUM 8.4 mg/dL (8.5-10.1)
[2020-08-15 08:03] LABS: ALBUMIN 2.2 g/dl (3.4-5.0); MAGNESIUM 3.3 mg/dL (1.8-2.4)
[2020-08-15 08:05] LABS: PHOSPHOROUS 4.9 mg/dL (2.5-4.9)
[2020-08-15 08:06] LABS: CREATININE 3.3 mg/dL (0.55-1.3)
[2020-08-15 08:07] LABS: BILIRUBIN,TOTAL 1.4 mg/dL (0.2-1); TOT PROT 6.4 g/dl (6.4-8.2)
[2020-08-15] MEDS: SEVELAMER CARBONATE 2.4 GM POWDER PACKET PO SCH ×2 (09:00→12:39)
[2020-08-15] MEDS: AMINO ACIDS/PROTEIN HYDROLYS 30 ML LIQUID.PKT PO SCH (09:00)
[2020-08-15] MEDS: PROPOFOL 1,000,000 MCG/100 ML VIAL IVPB SCH ×2 (09:11→12:51)
[2020-08-15] MEDS ORDERED: PIPERACILLIN/TAZOBACTAM 3.375 GM VIAL IVPB ONE ×2 (09:14→17:09)
[2020-08-15] MEDS ORDERED: DEXTROSE 5%-WATER - 50 ML IVPB ONE ×2 (09:14→17:09)
[2020-08-15] MEDS: CARVEDILOL 6.25 MG TABLET (FP) PO SCH ×2 (09:16→21:15)
[2020-08-15] MEDS: ASPIRIN 81 MG CHEWABLE TABLETS PO SCH (09:16)
[2020-08-15 11:09] LABS: ANTIGLOMERULAR BASEMENT MEN.AB 3 units (0-20)
[2020-08-15] MEDS: SODIUM CHLORIDE 1,000 ML IV SCH ×2 (13:07→13:15)
[2020-08-15] MEDS: CHLORHEXIDINE GLUCONATE 4% CLEANSER FOR DECOLONIZATION TP SCH (21:15)
[2020-08-16] MEDS ORDERED: PIPERACILLIN/TAZOBACTAM 3.375 GM VIAL IVPB ONE ×2 (01:28→09:15)
[2020-08-16] MEDS ORDERED: DEXTROSE 5%-WATER - 50 ML IVPB ONE ×2 (01:28→09:16)
[2020-08-16] MEDS: PIPERACILLIN/TAZOB 3.375 GM 3.375 GM in DEXTROSE 5%-WATER - 50 ML IVPB SCH ×2 (01:33→09:19)
[2020-08-16] MEDS: HEPARIN NA (PORCINE) 5,000 UNITS/ML 1ML VIAL SQ SCH ×3 (05:32→21:28)
[2020-08-16] MEDS: INSULIN SLIDING SCALE (NOVOLOG) 1 VIAL SQ SCH ×4 (06:36→21:29)
[2020-08-16] MEDS: AMINO ACIDS/PROTEIN HYDROLYS 30 ML LIQUID.PKT PO SCH (09:00)
[2020-08-16] MEDS: ASPIRIN 81 MG CHEWABLE TABLETS PO SCH (09:19)
[2020-08-16] MEDS: CARVEDILOL 6.25 MG TABLET (FP) PO SCH ×2 (09:19→21:28)
[2020-08-16 12:18] LABS: BASO % 0.7 % (0-2.0); EOS % 4.6 % (0-4.5); HEMATOCRIT 23.8 % (32.4-45.2); HEMOGLOBIN 7.7 GM/dL (10.7-15.3); LYMPH % 10.1 % (8-40); MCH 31.9 pg (25.7-33.7); MCHC 32.6 g/dl (32.0-36.0); MONO % 5.4 % (3.8-10.2); NEUT % 79.2 % (42.8-82.8); PLATELET COUNT 232 K/MM3 (134-434); RBC 2.43 M/mm3 (3.60-5.2); RDW 14.7 % (11.6-15.6); WHITE BLOOD COUNT 13.1 K/mm3 (4.0-10.0)
[2020-08-16 12:31] LABS: ALBUMIN 2.3 g/dl (3.4-5.0); BLOOD UREA NITROGEN 103.3 mg/dL (7-18); CALCIUM 8.8 mg/dL (8.5-10.1); MAGNESIUM 3.3 mg/dL (1.8-2.4)
[2020-08-16 12:35] LABS: CREATININE 2.6 mg/dL (0.55-1.3); PHOSPHOROUS 4.5 mg/dL (2.5-4.9)
[2020-08-16 12:36] LABS: BILIRUBIN,TOTAL 1.6 mg/dL (0.2-1); TOT PROT 6.9 g/dl (6.4-8.2)
[2020-08-16] MEDS: PROPOFOL 1,000,000 MCG/100 ML VIAL IVPB SCH (12:49)
[2020-08-16] MEDS: SODIUM CHLORIDE 1,000 ML IV SCH (17:00)
[2020-08-16] MEDS: CHLORHEXIDINE GLUCONATE 4% CLEANSER FOR DECOLONIZATION TP SCH (21:28)
[2020-08-17] MEDS: HEPARIN NA (PORCINE) 5,000 UNITS/ML 1ML VIAL SQ SCH ×3 (05:02→21:30)
[2020-08-17 06:20] LABS: ARTERIAL BLD GAS O2 SATURATION 97.1 mmHg (95-98); ARTERIAL BLOOD GAS BASE EXCESS -4.5 mmol/L (-2-2); ARTERIAL BLOOD GAS PO2 93.5 mmHg (80-100); ARTERIAL BLOOD GAS pH 7.384 (7.350-7.450)
[2020-08-17 06:21] LABS: ALLENS TEST POSITIVE; VENT MODE A/C
[2020-08-17 06:22] LABS: VENT RATE 14
[2020-08-17] MEDS: INSULIN SLIDING SCALE (NOVOLOG) 1 VIAL SQ SCH ×4 (06:27→21:31)
[2020-08-17 07:23] LABS: BASO % 0.8 % (0-2.0); EOS % 5.7 % (0-4.5); HEMATOCRIT 20.7 % (32.4-45.2); HEMOGLOBIN 6.7 GM/dL (10.7-15.3); MCH 31.4 pg (25.7-33.7); MCHC 32.5 g/dl (32.0-36.0); MEAN CELL VOLUME 96.6 fl (80-96); MEAN PLT VOLUME 10.9 fl (7.5-11.1); MONO % 8.4 % (3.8-10.2); NEUT % 71.1 % (42.8-82.8); PLATELET COUNT 235 K/MM3 (134-434); RBC 2.14 M/mm3 (3.60-5.2); WHITE BLOOD COUNT 11.9 K/mm3 (4.0-10.0)
[2020-08-17 07:32] LABS: POTASSIUM 4.2 mmol/L (3.5-5.1)
[2020-08-17 07:37] LABS: ALBUMIN 2.2 g/dl (3.4-5.0); BLOOD UREA NITROGEN 86.3 mg/dL (7-18); CALCIUM 8.4 mg/dL (8.5-10.1); MAGNESIUM 2.9 mg/dL (1.8-2.4)
[2020-08-17 07:40] LABS: CREATININE 2.2 mg/dL (0.55-1.3); PHOSPHOROUS 3.6 mg/dL (2.5-4.9)
[2020-08-17 07:42] LABS: BILIRUBIN,TOTAL 1.1 mg/dL (0.2-1); TOT PROT 6.3 g/dl (6.4-8.2)
[2020-08-17] MEDS: PROPOFOL 1,000,000 MCG/100 ML VIAL IVPB SCH ×3 (08:01→19:00)
[2020-08-17] MEDS: AMINO ACIDS/PROTEIN HYDROLYS 30 ML LIQUID.PKT PO SCH (09:00)
[2020-08-17] MEDS: ASPIRIN 81 MG CHEWABLE TABLETS PO SCH (09:51)
[2020-08-17] MEDS: CARVEDILOL 6.25 MG TABLET (FP) PO SCH ×2 (09:51→21:30)
[2020-08-17] MEDS ORDERED: FUROSEMIDE 40 MG/4 ML INJECTABLE VIAL IVPUSH ONE (11:08)
[2020-08-17 11:55] LABS: PLATELET ESTIMATE NORMAL
[2020-08-17] MEDS: SODIUM CHLORIDE 1,000 ML IV SCH (13:59)
[2020-08-17] MEDS ORDERED: SODIUM CHLORIDE 0.45% 1,000 ML IV SCH (15:30)
[2020-08-17] MEDS ORDERED: FUROSEMIDE 40 MG/4 ML INJECTABLE VIAL ONE (15:45)
[2020-08-17] MEDS: CHLORHEXIDINE GLUCONATE 4% CLEANSER FOR DECOLONIZATION TP SCH (21:30)
[2020-08-18 05:56] LABS: ARTERIAL BLD GAS O2 SATURATION 97.1 mmHg (95-98); ARTERIAL BLOOD GAS BASE EXCESS -6.4 mmol/L (-2-2); ARTERIAL BLOOD GAS PO2 95.2 mmHg (80-100); ARTERIAL BLOOD GAS pH 7.361 (7.350-7.450)
[2020-08-18 05:57] LABS: ALLENS TEST POSITIVE
[2020-08-18 05:58] LABS: VENT MODE A/C; VENT RATE 14
[2020-08-18] MEDS: HEPARIN NA (PORCINE) 5,000 UNITS/ML 1ML VIAL SQ SCH ×3 (06:04→21:10)
[2020-08-18] MEDS: INSULIN SLIDING SCALE (NOVOLOG) 1 VIAL SQ SCH ×4 (06:05→21:00)
[2020-08-18 07:40] LABS: BASO % 0.6 % (0-2.0); EOS % 4.2 % (0-4.5); HEMATOCRIT 26.4 % (32.4-45.2); HEMOGLOBIN 8.5 GM/dL (10.7-15.3); LYMPH % 14.1 % (8-40); MCH 30.7 pg (25.7-33.7); MCHC 32.1 g/dl (32.0-36.0); MEAN CELL VOLUME 95.5 fl (80-96); MEAN PLT VOLUME 11.1 fl (7.5-11.1); MONO % 6.5 % (3.8-10.2); NEUT % 74.6 % (42.8-82.8); PLATELET COUNT 273 K/MM3 (134-434); RBC 2.76 M/mm3 (3.60-5.2); RDW 15.6 % (11.6-15.6); WHITE BLOOD COUNT 14.8 K/mm3 (4.0-10.0)
[2020-08-18 07:52] LABS: POTASSIUM 4.1 mmol/L (3.5-5.1)
[2020-08-18 07:53] LABS: ALBUMIN 2.3 g/dl (3.4-5.0); MAGNESIUM 2.3 mg/dL (1.8-2.4)
[2020-08-18 07:56] LABS: CREATININE 1.6 mg/dL (0.55-1.3); PHOSPHOROUS 2.7 mg/dL (2.5-4.9)
[2020-08-18 07:58] LABS: BILIRUBIN,TOTAL 0.9 mg/dL (0.2-1); TOT PROT 6.7 g/dl (6.4-8.2)
[2020-08-18 08:02] LABS: BLOOD UREA NITROGEN 61.3 mg/dL (7-18)
[2020-08-18] MEDS: AMINO ACIDS/PROTEIN HYDROLYS 30 ML LIQUID.PKT PO SCH (08:23)
[2020-08-18] MEDS: CARVEDILOL 6.25 MG TABLET (FP) PO SCH ×2 (09:32→21:10)
[2020-08-18] MEDS: ASPIRIN 81 MG CHEWABLE TABLETS PO SCH (09:32)
[2020-08-18] MEDS ORDERED: PT OWN MED DRAWER 7, Y5N ONE (12:52)
[2020-08-18] MEDS: PROPOFOL 1,000,000 MCG/100 ML VIAL IVPB SCH ×2 (12:58→19:30)
[2020-08-18] MEDS ORDERED: ONDANSETRON 4 MG/2 ML VIAL IVPUSH PRN (14:55)
[2020-08-18] MEDS ORDERED: SCOPOLAMINE HYDROBROMIDE 1 PATCH PATCH.TD72 TD SCH (15:00)
[2020-08-18] MEDS ORDERED: SODIUM CHLORIDE 0.45% 1,000 ML IV SCH (15:24)
[2020-08-18 17:08] LABS: ATYPICAL pANCA <1:20 titer (Neg:<1:20); C-ANCA <1:20 titer (Neg:<1:20)
[2020-08-18] MEDS: CHLORHEXIDINE GLUCONATE 4% CLEANSER FOR DECOLONIZATION TP SCH (21:10)
[2020-08-19] MEDS: PROPOFOL 1,000,000 MCG/100 ML VIAL IVPB SCH ×3 (02:00→19:58)
[2020-08-19] MEDS: HEPARIN NA (PORCINE) 5,000 UNITS/ML 1ML VIAL SQ SCH ×3 (06:23→20:59)
[2020-08-19] MEDS: INSULIN SLIDING SCALE (NOVOLOG) 1 VIAL SQ SCH ×4 (06:23→21:02)
[2020-08-19 06:58] LABS: BASO % 0.6 % (0-2.0); EOS % 1.3 % (0-4.5); HEMATOCRIT 29.1 % (32.4-45.2); HEMOGLOBIN 9.3 GM/dL (10.7-15.3); LYMPH % 6.6 % (8-40); MCHC 32.1 g/dl (32.0-36.0); MEAN CELL VOLUME 96.5 fl (80-96); MEAN PLT VOLUME 11.1 fl (7.5-11.1); MONO % 4.9 % (3.8-10.2); NEUT % 86.6 % (42.8-82.8); PLATELET COUNT 297 K/MM3 (134-434); RBC 3.01 M/mm3 (3.60-5.2); RDW 15.9 % (11.6-15.6); WHITE BLOOD COUNT 22.5 K/mm3 (4.0-10.0)
[2020-08-19 07:10] LABS: POTASSIUM 4.5 mmol/L (3.5-5.1)
[2020-08-19 07:12] LABS: ALBUMIN 2.2 g/dl (3.4-5.0); BLOOD UREA NITROGEN 49.9 mg/dL (7-18); CALCIUM 9.2 mg/dL (8.5-10.1)
[2020-08-19 07:15] LABS: CREATININE 1.6 mg/dL (0.55-1.3)
[2020-08-19 07:16] LABS: PHOSPHOROUS 3.5 mg/dL (2.5-4.9)
[2020-08-19 07:17] LABS: BILIRUBIN,TOTAL 2.4 mg/dL (0.2-1); TOT PROT 6.6 g/dl (6.4-8.2)
[2020-08-19] MEDS: AMINO ACIDS/PROTEIN HYDROLYS 30 ML LIQUID.PKT PO SCH (08:24)
[2020-08-19 08:54] LABS: BILIRUBIN,DIRECT 2.1 mg/dL (0.0-0.2)
[2020-08-19] MEDS: CARVEDILOL 6.25 MG TABLET (FP) PO SCH ×3 (09:41→20:59)
[2020-08-19] MEDS: ASPIRIN 81 MG CHEWABLE TABLETS PO SCH ×2 (09:41→09:49)
[2020-08-19 10:31] LABS: ANISOCYTOSIS 1+; MACROCYTOSIS 1+; PLATELET ESTIMATE NORMAL; TARGET CELLS 1+
[2020-08-19] MEDS: dilTIAZem HCL 25 MG/5 ML - 5 ML VIAL IVPUSH PRN (12:27)
[2020-08-19] MEDS: DEXTROSE 5%-WATER - 1,000 ML IV SCH (14:39)
[2020-08-19] MEDS ORDERED: DEXMEDETOMIDINE IN 0.9 % NACL 400 MCG/100 ML VIAL IVPB SCH (16:45)
[2020-08-19] MEDS ORDERED: METOPROLOL TARTRATE 5 MG/5 ML VIAL ONE (19:41)
[2020-08-19] MEDS: METOPROLOL TARTRATE 5 MG/5 ML VIAL IVPUSH PRN (20:10)
[2020-08-19] MEDS: CHLORHEXIDINE GLUCONATE 4% CLEANSER FOR DECOLONIZATION TP SCH (20:59)
[2020-08-19] MEDS ORDERED: MORPHINE SULFATE 2 MG/ML VIAL IVPUSH ONE (22:38)
[2020-08-20] MEDS ORDERED: MORPHINE SULFATE 2 MG/ML VIAL ONE (03:02)
[2020-08-20] MEDS: INSULIN SLIDING SCALE (NOVOLOG) 1 VIAL SQ SCH ×4 (06:12→21:21)
[2020-08-20] MEDS: HEPARIN NA (PORCINE) 5,000 UNITS/ML 1ML VIAL SQ SCH ×3 (06:12→21:18)
[2020-08-20 06:48] LABS: BASO % 0.8 % (0-2.0); EOS % 5.1 % (0-4.5); HEMATOCRIT 27.2 % (32.4-45.2); HEMOGLOBIN 8.8 GM/dL (10.7-15.3); LYMPH % 7.3 % (8-40); MCH 30.9 pg (25.7-33.7); MCHC 32.4 g/dl (32.0-36.0); MEAN CELL VOLUME 95.4 fl (80-96); MONO % 4.8 % (3.8-10.2); PLATELET COUNT 294 K/MM3 (134-434); RBC 2.85 M/mm3 (3.60-5.2)
[2020-08-20 07:22] LABS: CALCIUM 8.9 mg/dL (8.5-10.1)
[2020-08-20 07:23] LABS: ALBUMIN 2.1 g/dl (3.4-5.0); MAGNESIUM 2.2 mg/dL (1.8-2.4)
[2020-08-20 07:26] LABS: CREATININE 1.8 mg/dL (0.55-1.3)
[2020-08-20 07:27] LABS: BILIRUBIN,TOTAL 0.9 mg/dL (0.2-1); TOT PROT 6.4 g/dl (6.4-8.2)
[2020-08-20] MEDS: AMINO ACIDS/PROTEIN HYDROLYS 30 ML LIQUID.PKT PO SCH (07:48)
[2020-08-20 09:29] LABS: ANISOCYTOSIS 1+; MACROCYTOSIS 0; PLATELET ESTIMATE NORMAL
[2020-08-20] MEDS: CARVEDILOL 6.25 MG TABLET (FP) PO SCH ×2 (09:56→21:18)
[2020-08-20] MEDS: PANTOPRAZOLE SODIUM 40 MG VIAL IVPUSH SCH (09:56)
[2020-08-20] MEDS: DEXTROSE 5%-WATER - 1,000 ML IV SCH ×2 (11:00→14:17)
[2020-08-20] MEDS: METOPROLOL TARTRATE 5 MG/5 ML VIAL IVPUSH PRN ×2 (14:11→18:59)
[2020-08-20] MEDS: dilTIAZem HCL 25 MG/5 ML - 5 ML VIAL IVPUSH PRN (14:46)
[2020-08-20] MEDS: CHLORHEXIDINE GLUCONATE 4% CLEANSER FOR DECOLONIZATION TP SCH (21:19)
[2020-08-21] MEDS: METOPROLOL TARTRATE 5 MG/5 ML VIAL IVPUSH PRN ×2 (02:43→07:05)
[2020-08-21] MEDS: HEPARIN NA (PORCINE) 5,000 UNITS/ML 1ML VIAL SQ SCH ×3 (06:14→21:42)
[2020-08-21] MEDS: INSULIN SLIDING SCALE (NOVOLOG) 1 VIAL SQ SCH ×4 (06:20→22:45)
[2020-08-21 07:10] LABS: BASO % 0.4 % (0-2.0); EOS % 4.3 % (0-4.5); HEMATOCRIT 27.7 % (32.4-45.2); HEMOGLOBIN 8.9 GM/dL (10.7-15.3); LYMPH % 7.2 % (8-40); MCH 30.7 pg (25.7-33.7); MEAN PLT VOLUME 11.4 fl (7.5-11.1); MONO % 6.5 % (3.8-10.2); NEUT % 81.6 % (42.8-82.8); PLATELET COUNT 306 K/MM3 (134-434); RBC 2.89 M/mm3 (3.60-5.2); RDW 15.6 % (11.6-15.6); WHITE BLOOD COUNT 19.9 K/mm3 (4.0-10.0)
[2020-08-21 07:27] LABS: POTASSIUM 3.8 mmol/L (3.5-5.1)
[2020-08-21 07:38] LABS: ALBUMIN 2.1 g/dl (3.4-5.0); CALCIUM 9.2 mg/dL (8.5-10.1)
[2020-08-21 07:41] LABS: BILIRUBIN,TOTAL 1.1 mg/dL (0.2-1); CREATININE 1.7 mg/dL (0.55-1.3); PHOSPHOROUS 2.7 mg/dL (2.5-4.9); TOT PROT 6.8 g/dl (6.4-8.2)
[2020-08-21] MEDS ORDERED: PT OWN MED DRAWER 7, Y5N ONE ×2 (09:00→17:33)
[2020-08-21] MEDS: AMINO ACIDS/PROTEIN HYDROLYS 30 ML LIQUID.PKT PO SCH (09:33)
[2020-08-21] MEDS: CARVEDILOL 6.25 MG TABLET (FP) PO SCH (09:33)
[2020-08-21] MEDS: PANTOPRAZOLE SODIUM 40 MG VIAL IVPUSH SCH (09:34)
[2020-08-21 11:40] VITALS: BMI 44.6
[2020-08-21] MEDS: DEXTROSE 5%-WATER - 1,000 ML IV SCH (13:35)
[2020-08-21] MEDS ORDERED: VANCOMYCIN 250 MG/5 ML ORAL SOLUTION PO SCH ×2 (13:40→18:00)
[2020-08-21] MEDS ORDERED: METOPROLOL TARTRATE 5 MG/5 ML VIAL IVPUSH PRN (20:35)
[2020-08-21] MEDS ORDERED: DEXTROSE 5%-WATER - 1,000 ML IV SCH (20:35)
[2020-08-21] MEDS ORDERED: dilTIAZem HCL 25 MG/5 ML - 5 ML VIAL IVPUSH PRN (20:35)
[2020-08-21] MEDS ORDERED: CHLORHEXIDINE GLUCONATE 4% CLEANSER FOR DECOLONIZATION TP SCH (22:00)
[2020-08-21] MEDS ORDERED: CARVEDILOL 6.25 MG TABLET (FP) PO SCH (22:00)
[2020-08-22] MEDS: HEPARIN NA (PORCINE) 5,000 UNITS/ML 1ML VIAL SQ SCH ×3 (05:56→23:12)
[2020-08-22] MEDS: INSULIN SLIDING SCALE (NOVOLOG) 1 VIAL SQ SCH ×3 (06:18→18:49)
[2020-08-22 08:32] LABS: BASO % 0.8 % (0-2.0); EOS % 4.8 % (0-4.5); HEMATOCRIT 26.4 % (32.4-45.2); HEMOGLOBIN 8.3 GM/dL (10.7-15.3); MCH 30.1 pg (25.7-33.7); MCHC 31.4 g/dl (32.0-36.0); MEAN CELL VOLUME 95.8 fl (80-96); MEAN PLT VOLUME 10.7 fl (7.5-11.1); MONO % 7.6 % (3.8-10.2); NEUT % 76.8 % (42.8-82.8); PLATELET COUNT 293 K/MM3 (134-434); RBC 2.76 M/mm3 (3.60-5.2); RDW 15.6 % (11.6-15.6); WHITE BLOOD COUNT 14.9 K/mm3 (4.0-10.0)
[2020-08-22 08:55] LABS: POTASSIUM 3.8 mmol/L (3.5-5.1)
[2020-08-22 08:59] LABS: CALCIUM 9.4 mg/dL (8.5-10.1)
[2020-08-22 09:00] LABS: BLOOD UREA NITROGEN 33.8 mg/dL (7-18); MAGNESIUM 2.1 mg/dL (1.8-2.4)
[2020-08-22 09:03] LABS: BILIRUBIN,TOTAL 0.9 mg/dL (0.2-1); CREATININE 1.4 mg/dL (0.55-1.3); PHOSPHOROUS 2.7 mg/dL (2.5-4.9); TOT PROT 6.4 g/dl (6.4-8.2)
[2020-08-22] MEDS: PANTOPRAZOLE SODIUM 40 MG VIAL IVPUSH SCH (10:11)
[2020-08-22] MEDS: AMINO ACIDS/PROTEIN HYDROLYS 30 ML LIQUID.PKT PO SCH (10:11)
[2020-08-22] MEDS: CARVEDILOL 12.5 MG TABLET (FP) PO SCH ×2 (10:13→23:12)
[2020-08-22] MEDS: VANCOMYCIN 250 MG/5 ML ORAL SOLUTION PO SCH (18:49)
[2020-08-22] MEDS ORDERED: DEXTROSE 5%-WATER - 1,000 ML IV SCH (20:45)
[2020-08-22] MEDS ORDERED: ASPIRIN 325 MG TABLET ONE (22:57)
[2020-08-22] MEDS: ATORVASTATIN CA 80 MG TABLET (FP) PO SCH (23:12)
[2020-08-22] MEDS ORDERED: ASPIRIN 81 MG CHEWABLE TABLETS PO ONE (23:15)
[2020-08-22] MEDS: ASPIRIN 300 MG SUPP.RECT PR SCH (23:17)
[2020-08-23] MEDS: VANCOMYCIN 250 MG/5 ML ORAL SOLUTION PO SCH ×5 (03:45→17:37)
[2020-08-23] MEDS: HEPARIN NA (PORCINE) 5,000 UNITS/ML 1ML VIAL SQ SCH ×3 (06:34→22:30)
[2020-08-23] MEDS: INSULIN SLIDING SCALE (NOVOLOG) 1 VIAL SQ SCH ×4 (06:35→17:37)
[2020-08-23 06:46] LABS: BASO % 1.1 % (0-2.0); HEMATOCRIT 25.7 % (32.4-45.2); HEMOGLOBIN 8.2 GM/dL (10.7-15.3); LYMPH % 13.1 % (8-40); MCH 30.5 pg (25.7-33.7); MCHC 31.7 g/dl (32.0-36.0); MEAN CELL VOLUME 96.2 fl (80-96); MEAN PLT VOLUME 11.1 fl (7.5-11.1); MONO % 8.6 % (3.8-10.2); NEUT % 71.2 % (42.8-82.8); PLATELET COUNT 299 K/MM3 (134-434); RBC 2.68 M/mm3 (3.60-5.2); RDW 15.6 % (11.6-15.6); WHITE BLOOD COUNT 12.5 K/mm3 (4.0-10.0)
[2020-08-23 07:18] LABS: POTASSIUM 4.2 mmol/L (3.5-5.1)
[2020-08-23 07:25] LABS: CALCIUM 9.4 mg/dL (8.5-10.1)
[2020-08-23 07:26] LABS: ALBUMIN 2.1 g/dl (3.4-5.0); ALBUMIN 2.2 g/dl (3.4-5.0); BLOOD UREA NITROGEN 32.5 mg/dL (7-18)
[2020-08-23 07:28] LABS: CHOLESTEROL 210 mg/dL (50-200)
[2020-08-23 07:29] LABS: BILIRUBIN,DIRECT 0.5 mg/dL (0.0-0.2); CREATININE 1.5 mg/dL (0.55-1.3); LDL CHOLESTEROL (ONLY SJRH) 152 mg/dL (5-100); PHOSPHOROUS 3.2 mg/dL (2.5-4.9); TRIGLYCERIDES 130 mg/dL (0-150)
[2020-08-23 07:31] LABS: BILIRUBIN,TOTAL 0.8 mg/dL (0.2-1); BILIRUBIN,TOTAL 1.1 mg/dL (0.2-1); TOT PROT 6.5 g/dl (6.4-8.2); TOT PROT 6.7 g/dl (6.4-8.2)
[2020-08-23 07:32] LABS: HDL CHOLESTEROL 34 mg/dL (40-60)
[2020-08-23] MEDS ORDERED: PT OWN MED DRAWER 7, Y5N ONE (09:16)
[2020-08-23] MEDS: VALSARTAN 80 MG TABLET PO SCH (10:03)
[2020-08-23] MEDS: CARVEDILOL 12.5 MG TABLET (FP) PO SCH ×2 (10:03→22:30)
[2020-08-23] MEDS: AMINO ACIDS/PROTEIN HYDROLYS 30 ML LIQUID.PKT PO SCH (10:03)
[2020-08-23] MEDS: PANTOPRAZOLE SODIUM 40 MG VIAL IVPUSH SCH (10:03)
[2020-08-23] MEDS: ASPIRIN 300 MG SUPP.RECT PR SCH (11:51)
[2020-08-23] MEDS: ONDANSETRON 4 MG/2 ML VIAL IVPUSH PRN (13:21)
[2020-08-23] MEDS: ACETAMINOPHEN 1000 MG/100 ML VIAL (NON FORMULARY) IVPB PRN (18:05)
[2020-08-23] MEDS: ATORVASTATIN CA 80 MG TABLET (FP) PO SCH (22:30)
[2020-08-23] MEDS ORDERED: ASPIRIN 81 MG CHEWABLE TABLETS PO ONE (22:48)
[2020-08-24] MEDS: INSULIN SLIDING SCALE (NOVOLOG) 1 VIAL SQ SCH ×5 (03:48→21:08)
[2020-08-24] MEDS: HEPARIN NA (PORCINE) 5,000 UNITS/ML 1ML VIAL SQ SCH ×3 (06:57→21:07)
[2020-08-24] MEDS: VANCOMYCIN 250 MG/5 ML ORAL SOLUTION PO SCH ×3 (06:58→17:37)
[2020-08-24] MEDS: ACETAMINOPHEN 1000 MG/100 ML VIAL (NON FORMULARY) IVPB PRN ×2 (06:58→18:06)
[2020-08-24 07:19] LABS: BASO % 1.1 % (0-2.0); HEMATOCRIT 26.8 % (32.4-45.2); HEMOGLOBIN 8.7 GM/dL (10.7-15.3); LYMPH % 12.8 % (8-40); MCHC 32.6 g/dl (32.0-36.0); MEAN CELL VOLUME 98.1 fl (80-96); MEAN PLT VOLUME 11.4 fl (7.5-11.1); MONO % 9.6 % (3.8-10.2); NEUT % 69.5 % (42.8-82.8); PLATELET COUNT 293 K/MM3 (134-434); RBC 2.73 M/mm3 (3.60-5.2); RDW 15.7 % (11.6-15.6); WHITE BLOOD COUNT 10.7 K/mm3 (4.0-10.0)
[2020-08-24 07:53] LABS: ALBUMIN 2.3 g/dl (3.4-5.0); BLOOD UREA NITROGEN 38.5 mg/dL (7-18); CALCIUM 9.4 mg/dL (8.5-10.1); MAGNESIUM 1.9 mg/dL (1.8-2.4)
[2020-08-24 07:56] LABS: CREATININE 1.7 mg/dL (0.55-1.3)
[2020-08-24 07:58] LABS: BILIRUBIN,TOTAL 0.8 mg/dL (0.2-1); PHOSPHOROUS 2.9 mg/dL (2.5-4.9); TOT PROT 6.8 g/dl (6.4-8.2)
[2020-08-24] MEDS ORDERED: PT OWN MED DRAWER 7, Y5N ONE (09:23)
[2020-08-24] MEDS: PANTOPRAZOLE SODIUM 40 MG VIAL IVPUSH SCH (09:56)
[2020-08-24] MEDS: VALSARTAN 80 MG TABLET PO SCH (09:56)
[2020-08-24] MEDS: CARVEDILOL 12.5 MG TABLET (FP) PO SCH ×2 (09:56→21:07)
[2020-08-24] MEDS: AMINO ACIDS/PROTEIN HYDROLYS 30 ML LIQUID.PKT PO SCH (09:56)
[2020-08-24] MEDS: ASPIRIN 300 MG SUPP.RECT PR SCH (11:44)
[2020-08-24] MEDS ORDERED: INSULIN (NOVOLOG) ASPART 100 UNITS/ML 10ML VIAL ONE (20:54)
[2020-08-24] MEDS: ATORVASTATIN CA 80 MG TABLET (FP) PO SCH (21:07)
[2020-08-25] MEDS: VANCOMYCIN 250 MG/5 ML ORAL SOLUTION PO SCH ×5 (00:04→23:03)
[2020-08-25] MEDS ORDERED: amLODIPine BESYLATE 2.5 MG TABLET (FP) PO ONE (02:40)
[2020-08-25] MEDS: INSULIN SLIDING SCALE (NOVOLOG) 1 VIAL SQ SCH ×4 (06:07→22:58)
[2020-08-25] MEDS: ONDANSETRON 4 MG/2 ML VIAL IVPUSH PRN (06:08)
[2020-08-25] MEDS ORDERED: TRIMETHOBENZAMIDE HCL 300 MG CAPSULE PO ONE (06:15)
[2020-08-25] MEDS: HEPARIN NA (PORCINE) 5,000 UNITS/ML 1ML VIAL SQ SCH ×3 (06:22→22:58)
[2020-08-25 07:32] LABS: EOS % 11.7 % (0-4.5); HEMATOCRIT 27.1 % (32.4-45.2); HEMOGLOBIN 8.7 GM/dL (10.7-15.3); LYMPH % 14.5 % (8-40); MCHC 32.1 g/dl (32.0-36.0); MEAN CELL VOLUME 96.6 fl (80-96); MEAN PLT VOLUME 11.2 fl (7.5-11.1); MONO % 6.9 % (3.8-10.2); NEUT % 65.9 % (42.8-82.8); PLATELET COUNT 275 K/MM3 (134-434); RDW 15.6 % (11.6-15.6); WHITE BLOOD COUNT 10.1 K/mm3 (4.0-10.0)
[2020-08-25 07:57] LABS: POTASSIUM 3.9 mmol/L (3.5-5.1)
[2020-08-25 08:17] LABS: ALBUMIN 2.2 g/dl (3.4-5.0); BLOOD UREA NITROGEN 33.6 mg/dL (7-18); MAGNESIUM 1.8 mg/dL (1.8-2.4)
[2020-08-25 08:19] LABS: CALCIUM 9.3 mg/dL (8.5-10.1)
[2020-08-25 08:20] LABS: CREATININE 1.5 mg/dL (0.55-1.3)
[2020-08-25 08:21] LABS: BILIRUBIN,TOTAL 1.3 mg/dL (0.2-1)
[2020-08-25 08:23] LABS: TOT PROT 6.6 g/dl (6.4-8.2)
[2020-08-25] MEDS: AMINO ACIDS/PROTEIN HYDROLYS 30 ML LIQUID.PKT PO SCH (08:26)
[2020-08-25] MEDS: VALSARTAN 80 MG TABLET PO SCH (12:26)
[2020-08-25] MEDS: CARVEDILOL 12.5 MG TABLET (FP) PO SCH ×2 (12:26→22:58)
[2020-08-25] MEDS: PANTOPRAZOLE SODIUM 40 MG VIAL IVPUSH SCH (12:27)
[2020-08-25] MEDS ORDERED: PT OWN MED DRAWER 7, Y5N ONE ×3 (13:02→17:07)
[2020-08-25] MEDS: ASPIRIN 300 MG SUPP.RECT PR SCH (13:07)
[2020-08-25] MEDS: AMINO ACIDS 4.25%/D5W 1,000 ML IV SCH (14:49)
[2020-08-25] MEDS: ATORVASTATIN CA 80 MG TABLET (FP) PO SCH (22:58)
[2020-08-26] MEDS: AMINO ACIDS 4.25%/D5W 1,000 ML IV SCH (06:27)
[2020-08-26] MEDS: HEPARIN NA (PORCINE) 5,000 UNITS/ML 1ML VIAL SQ SCH ×3 (06:28→23:03)
[2020-08-26] MEDS: VANCOMYCIN 250 MG/5 ML ORAL SOLUTION PO SCH ×3 (06:28→17:43)
[2020-08-26] MEDS: INSULIN SLIDING SCALE (NOVOLOG) 1 VIAL SQ SCH ×4 (07:00→23:04)
[2020-08-26] MEDS: ASPIRIN 300 MG SUPP.RECT PR SCH (10:19)
[2020-08-26] MEDS: VALSARTAN 80 MG TABLET PO SCH (10:19)
[2020-08-26] MEDS: CARVEDILOL 12.5 MG TABLET (FP) PO SCH ×2 (10:19→23:03)
[2020-08-26] MEDS: AMINO ACIDS/PROTEIN HYDROLYS 30 ML LIQUID.PKT NGT SCH (10:20)
[2020-08-26] MEDS: PANTOPRAZOLE SODIUM 40 MG VIAL IVPUSH SCH (10:20)
[2020-08-26 10:38] LABS: BASO % 1.3 % (0-2.0); HEMATOCRIT 26.2 % (32.4-45.2); HEMOGLOBIN 8.6 GM/dL (10.7-15.3); LYMPH % 14.9 % (8-40); MCH 31.9 pg (25.7-33.7); MCHC 32.7 g/dl (32.0-36.0); MEAN CELL VOLUME 97.5 fl (80-96); MEAN PLT VOLUME 11.1 fl (7.5-11.1); MONO % 9.4 % (3.8-10.2); NEUT % 63.4 % (42.8-82.8); PLATELET COUNT 286 K/MM3 (134-434); RBC 2.68 M/mm3 (3.60-5.2); RDW 15.4 % (11.6-15.6); WHITE BLOOD COUNT 8.9 K/mm3 (4.0-10.0)
[2020-08-26 10:56] LABS: POTASSIUM 4.1 mmol/L (3.5-5.1)
[2020-08-26 10:59] LABS: ALBUMIN 2.1 g/dl (3.4-5.0); BLOOD UREA NITROGEN 34.9 mg/dL (7-18); MAGNESIUM 1.8 mg/dL (1.8-2.4)
[2020-08-26 11:02] LABS: CREATININE 1.4 mg/dL (0.55-1.3); PHOSPHOROUS 2.9 mg/dL (2.5-4.9)
[2020-08-26 11:03] LABS: BILIRUBIN,TOTAL 0.4 mg/dL (0.2-1); TOT PROT 6.4 g/dl (6.4-8.2)
[2020-08-26 22:06] LABS: POTASSIUM 3.9 mmol/L (3.5-5.1)
[2020-08-26 22:08] LABS: CALCIUM 9.2 mg/dL (8.5-10.1)
[2020-08-26 22:09] LABS: BLOOD UREA NITROGEN 43.3 mg/dL (7-18)
[2020-08-26 22:12] LABS: CREATININE 1.9 mg/dL (0.55-1.3)
[2020-08-26] MEDS: ATORVASTATIN CA 80 MG TABLET (FP) PO SCH (23:03)
[2020-08-27] MEDS: VANCOMYCIN 250 MG/5 ML ORAL SOLUTION PO SCH ×5 (01:08→17:34)
[2020-08-27] MEDS: HEPARIN NA (PORCINE) 5,000 UNITS/ML 1ML VIAL SQ SCH ×2 (05:44→13:34)
[2020-08-27 07:17] LABS: BASO % 1.1 % (0-2.0); EOS % 10.3 % (0-4.5); HEMATOCRIT 26.1 % (32.4-45.2); HEMOGLOBIN 8.3 GM/dL (10.7-15.3); LYMPH % 23.1 % (8-40); MCH 31.4 pg (25.7-33.7); MCHC 31.7 g/dl (32.0-36.0); MEAN CELL VOLUME 99.1 fl (80-96); MEAN PLT VOLUME 11.7 fl (7.5-11.1); MONO % 9.2 % (3.8-10.2); NEUT % 56.3 % (42.8-82.8); PLATELET COUNT 252 K/MM3 (134-434); RBC 2.63 M/mm3 (3.60-5.2); RDW 15.8 % (11.6-15.6); WHITE BLOOD COUNT 7.7 K/mm3 (4.0-10.0)
[2020-08-27 07:40] LABS: POTASSIUM 3.9 mmol/L (3.5-5.1)
[2020-08-27 07:46] LABS: ALBUMIN 2.3 g/dl (3.4-5.0); BLOOD UREA NITROGEN 42.9 mg/dL (7-18); CALCIUM 9.2 mg/dL (8.5-10.1); MAGNESIUM 1.8 mg/dL (1.8-2.4)
[2020-08-27 07:49] LABS: CREATININE 1.7 mg/dL (0.55-1.3); PHOSPHOROUS 2.9 mg/dL (2.5-4.9)
[2020-08-27 07:50] LABS: BILIRUBIN,TOTAL 0.6 mg/dL (0.2-1); TOT PROT 6.3 g/dl (6.4-8.2)
[2020-08-27] MEDS: INSULIN SLIDING SCALE (NOVOLOG) 1 VIAL SQ SCH ×3 (08:01→17:33)
[2020-08-27] MEDS ORDERED: PT OWN MED DRAWER 7, Y5N ONE (09:30)
[2020-08-27] MEDS: CARVEDILOL 12.5 MG TABLET (FP) PO SCH (09:49)
[2020-08-27] MEDS: VALSARTAN 80 MG TABLET PO SCH (09:49)
[2020-08-27] MEDS: AMINO ACIDS/PROTEIN HYDROLYS 30 ML LIQUID.PKT NGT SCH (09:50)
[2020-08-27] MEDS: PANTOPRAZOLE SODIUM 40 MG VIAL IVPUSH SCH (09:50)
[2020-08-27] MEDS: ASPIRIN 300 MG SUPP.RECT PR SCH (13:01)
[2020-08-27] MEDS: AMINO ACIDS 4.25%/D5W 1,000 ML IV SCH (17:34)
[2020-08-28] MEDS: CARVEDILOL 12.5 MG TABLET (FP) PO SCH ×2 (00:04→11:06)
[2020-08-28] MEDS: VANCOMYCIN 250 MG/5 ML ORAL SOLUTION PO SCH ×5 (00:05→23:47)
[2020-08-28] MEDS: ATORVASTATIN CA 80 MG TABLET (FP) PO SCH ×2 (00:05→23:47)
[2020-08-28] MEDS: HEPARIN NA (PORCINE) 5,000 UNITS/ML 1ML VIAL SQ SCH ×3 (00:10→14:57)
[2020-08-28] MEDS: INSULIN SLIDING SCALE (NOVOLOG) 1 VIAL SQ SCH ×5 (00:15→23:48)
[2020-08-28 08:26] LABS: BASO % 1.2 % (0-2.0); HEMOGLOBIN 8.8 GM/dL (10.7-15.3); LYMPH % 24.1 % (8-40); MCH 30.5 pg (25.7-33.7); MCHC 31.5 g/dl (32.0-36.0); MEAN CELL VOLUME 96.8 fl (80-96); MONO % 7.1 % (3.8-10.2); NEUT % 57.6 % (42.8-82.8); PLATELET COUNT 248 K/MM3 (134-434); RBC 2.89 M/mm3 (3.60-5.2); RDW 15.8 % (11.6-15.6); WHITE BLOOD COUNT 7.5 K/mm3 (4.0-10.0)
[2020-08-28 08:42] LABS: POTASSIUM 4.2 mmol/L (3.5-5.1)
[2020-08-28 08:48] LABS: ALBUMIN 2.5 g/dl (3.4-5.0); CALCIUM 9.4 mg/dL (8.5-10.1)
[2020-08-28 08:49] LABS: BLOOD UREA NITROGEN 39.2 mg/dL (7-18); MAGNESIUM 1.9 mg/dL (1.8-2.4)
[2020-08-28] MEDS: AMINO ACIDS/PROTEIN HYDROLYS 30 ML LIQUID.PKT NGT SCH (08:49)
[2020-08-28 08:51] LABS: CREATININE 1.4 mg/dL (0.55-1.3); PHOSPHOROUS 2.6 mg/dL (2.5-4.9)
[2020-08-28 08:52] LABS: BILIRUBIN,TOTAL 0.6 mg/dL (0.2-1)
[2020-08-28 08:53] LABS: TOT PROT 6.9 g/dl (6.4-8.2)
[2020-08-28 10:16] LABS: EPI CELLS 19 /uL (0-25.1); HYALINE CASTS 3 /uL (0-3.1); URINE APPEARANCE CLOUDY; URINE BACTERIA >9,000 /uL (0-1359); URINE BILIRUBIN NEGATIVE (NEGATIVE); URINE COLOR YELLOW; URINE GLUCOSE (UA) NEGATIVE (NEGATIVE); URINE KETONE NEGATIVE (NEGATIVE); URINE LEUK ESTERASE 2+ (NEGATIVE); URINE NITRITE NEGATIVE (NEGATIVE); URINE PROTEIN 1+ (NEGATIVE); URINE RBC 925 /uL (0-23.9); URINE UROBILINOGEN 0.2 mg/dL (0.2-1.0); URINE WBC 161 /uL (0-25.8)
[2020-08-28] MEDS: VALSARTAN 80 MG TABLET PO SCH (11:06)
[2020-08-28] MEDS: ASPIRIN 300 MG SUPP.RECT PR SCH (11:06)
[2020-08-28] MEDS: PANTOPRAZOLE SODIUM 40 MG VIAL IVPUSH SCH (11:06)
[2020-08-28] MEDS ORDERED: PT OWN MED DRAWER 7, Y5N ONE (11:22)
[2020-08-28] MEDS: AMINO ACIDS 4.25%/D5W 1,000 ML IV SCH (16:42)
[2020-08-29] MEDS: VANCOMYCIN 250 MG/5 ML ORAL SOLUTION PO SCH ×3 (06:59→17:15)
[2020-08-29] MEDS: INSULIN SLIDING SCALE (NOVOLOG) 1 VIAL SQ SCH ×4 (07:00→22:18)
[2020-08-29] MEDS ORDERED: NYSTATIN 500,000 UNITS/5 ML SUSPENSION PO ONE (08:34)
[2020-08-29] MEDS ORDERED: CEFTRIAXONE 1 GM in DEXTROSE 5%-WATER - 50 ML IVPB ONE (11:45)
[2020-08-29] MEDS ORDERED: HEPARIN NA (PORCINE) 5,000 UNITS/ML 1ML VIAL IVPUSH PRN ×2 (12:26)
[2020-08-29] MEDS ORDERED: HEPARIN NA (PORCINE) 5,000 UNITS/ML 1ML VIAL IVPUSH ONE ×2 (12:26→12:45)
[2020-08-29] MEDS ORDERED: HEPARIN INFUSION - 500 ML IV SCH (12:30)
[2020-08-29] MEDS ORDERED: DEXTROSE 5%-WATER - 50 ML IVPB ONE (13:19)
[2020-08-29] MEDS ORDERED: cefTRIAXone SODIUM 1 GM VIAL ONE (13:19)
[2020-08-29] MEDS ORDERED: ACETAMINOPHEN 1000 MG/100 ML VIAL (NON FORMULARY) IVPB ONE (13:31)
[2020-08-29] MEDS: AMINO ACIDS/PROTEIN HYDROLYS 30 ML LIQUID.PKT NGT SCH (13:40)
[2020-08-29] MEDS: VALSARTAN 80 MG TABLET PO SCH (13:40)
[2020-08-29] MEDS: ASPIRIN 300 MG SUPP.RECT PR SCH (13:40)
[2020-08-29] MEDS: PANTOPRAZOLE SODIUM 40 MG VIAL IVPUSH SCH (13:41)
[2020-08-29] MEDS: APIXABAN 5 MG TABLET PO SCH ×3 (13:42→22:50)
[2020-08-29 13:57] LABS: BASO % 1.5 % (0-2.0); EOS % 14.5 % (0-4.5); HEMATOCRIT 28.8 % (32.4-45.2); LYMPH % 23.9 % (8-40); MCH 30.1 pg (25.7-33.7); MCHC 31.2 g/dl (32.0-36.0); MEAN CELL VOLUME 96.3 fl (80-96); MEAN PLT VOLUME 10.9 fl (7.5-11.1); MONO % 8.1 % (3.8-10.2); PLATELET COUNT 244 K/MM3 (134-434); RBC 2.99 M/mm3 (3.60-5.2); RDW 15.8 % (11.6-15.6); WHITE BLOOD COUNT 6.6 K/mm3 (4.0-10.0)
[2020-08-29 14:06] LABS: POTASSIUM 4.8 mmol/L (3.5-5.1)
[2020-08-29 14:09] LABS: ALBUMIN 2.5 g/dl (3.4-5.0); BLOOD UREA NITROGEN 25.7 mg/dL (7-18); CALCIUM 9.5 mg/dL (8.5-10.1)
[2020-08-29 14:12] LABS: CREATININE 1.2 mg/dL (0.55-1.3); PHOSPHOROUS 2.8 mg/dL (2.5-4.9)
[2020-08-29 14:14] LABS: BILIRUBIN,TOTAL 0.6 mg/dL (0.2-1); TOT PROT 7.1 g/dl (6.4-8.2)
[2020-08-29] MEDS: AMINO ACIDS 4.25%/D5W 1,000 ML IV SCH (17:11)
[2020-08-29] MEDS: ATORVASTATIN CA 80 MG TABLET (FP) PO SCH ×2 (22:17→22:50)
[2020-08-29] MEDS: CARVEDILOL 6.25 MG TABLET (FP) PO SCH ×2 (22:17→22:50)
[2020-08-30] MEDS: VANCOMYCIN 250 MG/5 ML ORAL SOLUTION PO SCH ×5 (01:40→23:40)
[2020-08-30] MEDS: INSULIN SLIDING SCALE (NOVOLOG) 1 VIAL SQ SCH ×4 (06:57→21:53)
[2020-08-30 07:13] LABS: BASO % 1.2 % (0-2.0); EOS % 17.7 % (0-4.5); HEMATOCRIT 27.4 % (32.4-45.2); HEMOGLOBIN 8.7 GM/dL (10.7-15.3); LYMPH % 26.9 % (8-40); MCH 30.5 pg (25.7-33.7); MCHC 31.8 g/dl (32.0-36.0); MEAN CELL VOLUME 96.1 fl (80-96); MEAN PLT VOLUME 11.4 fl (7.5-11.1); MONO % 6.8 % (3.8-10.2); NEUT % 47.4 % (42.8-82.8); PLATELET COUNT 225 K/MM3 (134-434); RBC 2.85 M/mm3 (3.60-5.2); WHITE BLOOD COUNT 7.3 K/mm3 (4.0-10.0)
[2020-08-30 07:42] LABS: POTASSIUM 4.3 mmol/L (3.5-5.1)
[2020-08-30 07:51] LABS: ALBUMIN 2.5 g/dl (3.4-5.0); BLOOD UREA NITROGEN 24.4 mg/dL (7-18); CALCIUM 9.5 mg/dL (8.5-10.1); MAGNESIUM 1.8 mg/dL (1.8-2.4)
[2020-08-30 07:54] LABS: CREATININE 1.2 mg/dL (0.55-1.3)
[2020-08-30 07:56] LABS: BILIRUBIN,TOTAL 0.7 mg/dL (0.2-1)
[2020-08-30] MEDS ORDERED: ACETAMINOPHEN 1000 MG/100 ML VIAL (NON FORMULARY) IVPB ONE (09:00)
[2020-08-30] MEDS ORDERED: cefTRIAXone SODIUM 1 GM VIAL ONE (09:10)
[2020-08-30] MEDS ORDERED: DEXTROSE 5%-WATER - 50 ML IVPB ONE (09:10)
[2020-08-30] MEDS: VALSARTAN 80 MG TABLET PO SCH (09:16)
[2020-08-30] MEDS: CARVEDILOL 6.25 MG TABLET (FP) PO SCH ×2 (09:16→21:51)
[2020-08-30] MEDS: APIXABAN 5 MG TABLET PO SCH ×2 (09:23→21:51)
[2020-08-30] MEDS ORDERED: CEFTRIAXONE 1 GM in DEXTROSE 5%-WATER - 50 ML IVPB SCH (10:00)
[2020-08-30] MEDS ORDERED: MAGNESIUM SULF 50% (8.12 MEQ/2 ML-1 GM VIAL) IVPB ONE (10:00)
[2020-08-30] MEDS: PANTOPRAZOLE SODIUM 40 MG VIAL IVPUSH SCH (10:12)
[2020-08-30] MEDS ORDERED: SODIUM PHOSPHATE - 15 MM in SODIUM CHLORIDE 250 ML IVPB ONE (11:00)
[2020-08-30] MEDS: AMINO ACIDS 4.25%/D5W 1,000 ML IV SCH (17:16)
[2020-08-30] MEDS: ERTAPENEM SODIUM 1 GM in SODIUM CHLORIDE 50 ML IVPB SCH (20:25)
[2020-08-30] MEDS: ATORVASTATIN CA 80 MG TABLET (FP) PO SCH (21:51)
[2020-08-31] MEDS: VANCOMYCIN 250 MG/5 ML ORAL SOLUTION PO SCH ×3 (05:45→17:53)
[2020-08-31] MEDS: INSULIN SLIDING SCALE (NOVOLOG) 1 VIAL SQ SCH ×4 (06:06→21:38)
[2020-08-31] MEDS: AMINO ACIDS 4.25%/D5W 1,000 ML IV SCH (06:14)
[2020-08-31 09:18] LABS: BASO % 1.4 % (0-2.0); EOS % 13.7 % (0-4.5); HEMATOCRIT 29.6 % (32.4-45.2); HEMOGLOBIN 9.4 GM/dL (10.7-15.3); LYMPH % 22.2 % (8-40); MCH 30.8 pg (25.7-33.7); MCHC 31.7 g/dl (32.0-36.0); MEAN CELL VOLUME 97.3 fl (80-96); MEAN PLT VOLUME 11.1 fl (7.5-11.1); MONO % 8.2 % (3.8-10.2); NEUT % 54.5 % (42.8-82.8); PLATELET COUNT 236 K/MM3 (134-434); RBC 3.04 M/mm3 (3.60-5.2); RDW 15.8 % (11.6-15.6); WHITE BLOOD COUNT 7.6 K/mm3 (4.0-10.0)
[2020-08-31 09:39] LABS: POTASSIUM 4.3 mmol/L (3.5-5.1)
[2020-08-31] MEDS: APIXABAN 5 MG TABLET PO SCH ×2 (09:40→21:39)
[2020-08-31] MEDS: VALSARTAN 80 MG TABLET PO SCH (09:40)
[2020-08-31] MEDS: CARVEDILOL 6.25 MG TABLET (FP) PO SCH ×2 (09:40→21:39)
[2020-08-31 09:43] LABS: CALCIUM 9.8 mg/dL (8.5-10.1)
[2020-08-31] MEDS: PANTOPRAZOLE SODIUM 40 MG VIAL IVPUSH SCH (09:43)
[2020-08-31] MEDS: ERTAPENEM SODIUM 1 GM in SODIUM CHLORIDE 50 ML IVPB SCH (09:43)
[2020-08-31 09:44] LABS: ALBUMIN 2.7 g/dl (3.4-5.0)
[2020-08-31 09:46] LABS: CREATININE 1.2 mg/dL (0.55-1.3)
[2020-08-31 09:47] LABS: PHOSPHOROUS 2.9 mg/dL (2.5-4.9)
[2020-08-31 09:48] LABS: BILIRUBIN,TOTAL 0.5 mg/dL (0.2-1); TOT PROT 7.1 g/dl (6.4-8.2)
[2020-08-31] MEDS: ATORVASTATIN CA 80 MG TABLET (FP) PO SCH (21:39)
[2020-09-01] MEDS: VANCOMYCIN 250 MG/5 ML ORAL SOLUTION PO SCH ×3 (01:00→11:58)
[2020-09-01] MEDS: INSULIN SLIDING SCALE (NOVOLOG) 1 VIAL SQ SCH ×3 (06:14→15:48)
[2020-09-01] MEDS ORDERED: ACETAMINOPHEN 1000 MG/100 ML VIAL (NON FORMULARY) IVPB ONE (06:31)
[2020-09-01 07:47] LABS: POTASSIUM 4.3 mmol/L (3.5-5.1)
[2020-09-01 08:14] LABS: CALCIUM 10.1 mg/dL (8.5-10.1); CREATININE 1.5 mg/dL (0.55-1.3)
[2020-09-01] MEDS: VALSARTAN 80 MG TABLET PO SCH (10:15)
[2020-09-01] MEDS: CARVEDILOL 6.25 MG TABLET (FP) PO SCH ×2 (10:15→22:29)
[2020-09-01] MEDS: PANTOPRAZOLE SODIUM 40 MG VIAL IVPUSH SCH (10:15)
[2020-09-01] MEDS: APIXABAN 5 MG TABLET PO SCH ×2 (10:18→22:33)
[2020-09-01] MEDS ORDERED: AMINO ACIDS 4.25%/D5W 1,000 ML IV SCH (12:15)
[2020-09-01] MEDS: AMINO ACIDS 4.25%/D5W 1,000 ML IV SCH (12:23)
[2020-09-01] MEDS: ATORVASTATIN CA 80 MG TABLET (FP) PO SCH (22:29)
[2020-09-02] MEDS ORDERED: LACTATED RINGERS SOLUTION 1,000 ML/1,000 ML INFUS.BAG IV STA (00:12)
[2020-09-02] MEDS ORDERED: PANTOPRAZOLE SODIUM 40 MG VIAL IVPUSH SCH (00:15)
[2020-09-02] MEDS: PANTOPRAZOLE SODIUM 80 MG in SODIUM CHLORIDE 100 ML IVPB SCH ×4 (00:30→19:52)
[2020-09-02] MEDS ORDERED: PANTOPRAZOLE SODIUM 40 MG VIAL IVPUSH ONE (00:54)
[2020-09-02] MEDS ORDERED: ONDANSETRON 4 MG/2 ML VIAL IVPUSH ONE (01:12)
[2020-09-02 01:33] LABS: HEMATOCRIT 23.5 % (32.4-45.2); HEMOGLOBIN 7.4 GM/dL (10.7-15.3); MCH 31.1 pg (25.7-33.7); MCHC 31.3 g/dl (32.0-36.0); MEAN CELL VOLUME 99.2 fl (80-96); MEAN PLT VOLUME 11.7 fl (7.5-11.1); PLATELET COUNT 221 K/MM3 (134-434); RBC 2.37 M/mm3 (3.60-5.2); RDW 16.3 % (11.6-15.6); WHITE BLOOD COUNT 7.1 K/mm3 (4.0-10.0)
[2020-09-02 01:52] LABS: INR 2.4 (0.83-1.09); PROTHROMBIN TIME (PATIENT) 28.3 SEC (9.7-13.0)
[2020-09-02 01:54] LABS: POTASSIUM 5.3 mmol/L (3.5-5.1)
[2020-09-02 01:55] LABS: ACTIVATED PTT 27.9 SECONDS (25.2-36.5)
[2020-09-02 01:56] LABS: CALCIUM 10.1 mg/dL (8.5-10.1)
[2020-09-02 01:57] LABS: ALBUMIN 2.9 g/dl (3.4-5.0); BLOOD UREA NITROGEN 36.4 mg/dL (7-18)
[2020-09-02 02:00] LABS: CREATININE 2.4 mg/dL (0.55-1.3)
[2020-09-02 02:01] LABS: BILIRUBIN,TOTAL 0.6 mg/dL (0.2-1)
[2020-09-02] MEDS: INSULIN SLIDING SCALE (NOVOLOG) 1 VIAL SQ SCH ×5 (02:10→21:49)
[2020-09-02] MEDS: SODIUM CHLORIDE 0.45% 1,000 ML IV SCH (09:43)
[2020-09-02] MEDS ORDERED: LACTATED RINGERS SOLUTION 1,000 ML/1,000 ML INFUS.BAG IV SCH ×2 (11:30)
[2020-09-02 12:15] LABS: BASO % 0.6 % (0-2.0); EOS % 0.5 % (0-4.5); HEMATOCRIT 23.3 % (32.4-45.2); HEMOGLOBIN 7.6 GM/dL (10.7-15.3); LYMPH % 14.8 % (8-40); MCH 31.4 pg (25.7-33.7); MCHC 32.7 g/dl (32.0-36.0); MEAN PLT VOLUME 11.7 fl (7.5-11.1); MONO % 3.4 % (3.8-10.2); NEUT % 80.7 % (42.8-82.8); PLATELET COUNT 191 K/MM3 (134-434); RBC 2.43 M/mm3 (3.60-5.2); RDW 15.3 % (11.6-15.6)
[2020-09-02 12:37] LABS: POTASSIUM 4.5 mmol/L (3.5-5.1)
[2020-09-02] MEDS: AMINO ACIDS 4.25%/D5W 1,000 ML IV SCH (12:37)
[2020-09-02 12:40] LABS: CALCIUM 9.4 mg/dL (8.5-10.1)
[2020-09-02 12:41] LABS: ALBUMIN 2.5 g/dl (3.4-5.0); BLOOD UREA NITROGEN 38.9 mg/dL (7-18)
[2020-09-02 12:44] LABS: CREATININE 2.6 mg/dL (0.55-1.3); PHOSPHOROUS 3.2 mg/dL (2.5-4.9)
[2020-09-02 12:45] LABS: BILIRUBIN,TOTAL 0.6 mg/dL (0.2-1)
[2020-09-02] MEDS ORDERED: ACETAMINOPHEN 1000 MG/100 ML VIAL (NON FORMULARY) IVPB ONE (13:26)
[2020-09-02] MEDS: ATORVASTATIN CA 80 MG TABLET (FP) PO SCH (21:15)
[2020-09-03] MEDS: INSULIN SLIDING SCALE (NOVOLOG) 1 VIAL SQ SCH ×4 (06:33→22:01)
[2020-09-03] MEDS: PANTOPRAZOLE SODIUM 80 MG in SODIUM CHLORIDE 100 ML IVPB SCH ×3 (06:33→18:14)
[2020-09-03 07:12] LABS: EOS % 5.8 % (0-4.5); LYMPH % 18.5 % (8-40); MCH 30.8 pg (25.7-33.7); MCHC 33.3 g/dl (32.0-36.0); MEAN CELL VOLUME 92.7 fl (80-96); MONO % 5.3 % (3.8-10.2); NEUT % 69.4 % (42.8-82.8); PLATELET COUNT 174 K/MM3 (134-434); RBC 2.59 M/mm3 (3.60-5.2); RDW 15.4 % (11.6-15.6); WHITE BLOOD COUNT 12.6 K/mm3 (4.0-10.0)
[2020-09-03 07:22] LABS: POTASSIUM 4.1 mmol/L (3.5-5.1)
[2020-09-03 07:25] LABS: ALBUMIN 2.2 g/dl (3.4-5.0); BLOOD UREA NITROGEN 29.8 mg/dL (7-18); CALCIUM 8.6 mg/dL (8.5-10.1); MAGNESIUM 1.8 mg/dL (1.8-2.4)
[2020-09-03 07:28] LABS: PHOSPHOROUS 2.6 mg/dL (2.5-4.9)
[2020-09-03 07:30] LABS: BILIRUBIN,TOTAL 0.8 mg/dL (0.2-1); TOT PROT 5.5 g/dl (6.4-8.2)
[2020-09-03] MEDS ORDERED: MAGNESIUM SULF 50% (8.12 MEQ/2 ML-1 GM VIAL) IVPB ONE (08:23)
[2020-09-03] MEDS: SODIUM CHLORIDE 0.45% 1,000 ML IV SCH (15:34)
[2020-09-03] MEDS ORDERED: SODIUM CHLORIDE 0.45% 1,000 ML IV SCH (16:08)
[2020-09-03] MEDS ORDERED: DEXTROSE 5%-0.45% SALINE 1,000 ML IV SCH (16:45)
[2020-09-03] MEDS: AMINO ACIDS 4.25%/D5W 1,000 ML IV SCH (16:48)
[2020-09-03] MEDS: ATORVASTATIN CA 80 MG TABLET (FP) PO SCH (22:02)
[2020-09-04] MEDS: PANTOPRAZOLE SODIUM 80 MG in SODIUM CHLORIDE 100 ML IVPB SCH ×3 (06:53→22:32)
[2020-09-04] MEDS: INSULIN SLIDING SCALE (NOVOLOG) 1 VIAL SQ SCH ×4 (06:54→21:24)
[2020-09-04 08:27] LABS: MCH 31.6 pg (25.7-33.7); MCHC 33.4 g/dl (32.0-36.0); MEAN CELL VOLUME 94.6 fl (80-96); MEAN PLT VOLUME 10.9 fl (7.5-11.1); PLATELET COUNT 188 K/MM3 (134-434); RBC 2.54 M/mm3 (3.60-5.2); RDW 15.7 % (11.6-15.6); WHITE BLOOD COUNT 10.7 K/mm3 (4.0-10.0)
[2020-09-04 08:39] LABS: POTASSIUM 4.1 mmol/L (3.5-5.1)
[2020-09-04 08:46] LABS: ALBUMIN 2.5 g/dl (3.4-5.0); BLOOD UREA NITROGEN 20.5 mg/dL (7-18)
[2020-09-04 08:49] LABS: CREATININE 1.5 mg/dL (0.55-1.3)
[2020-09-04 08:50] LABS: BILIRUBIN,TOTAL 0.5 mg/dL (0.2-1); TOT PROT 5.9 g/dl (6.4-8.2)
[2020-09-04 09:32] LABS: INR 1.32 (0.83-1.09); PROTHROMBIN TIME (PATIENT) 16.1 SEC (9.7-13.0)
[2020-09-04] MEDS: AMINO ACIDS 4.25%/D5W 1,000 ML IV SCH (14:22)
[2020-09-04 16:01] LABS: HEMATOCRIT 22.7 % (32.4-45.2); HEMOGLOBIN 7.6 GM/dL (10.7-15.3); MCH 31.9 pg (25.7-33.7); MCHC 33.4 g/dl (32.0-36.0); MEAN CELL VOLUME 95.6 fl (80-96); MEAN PLT VOLUME 10.9 fl (7.5-11.1); PLATELET COUNT 178 K/MM3 (134-434); RBC 2.37 M/mm3 (3.60-5.2); RDW 15.7 % (11.6-15.6); WHITE BLOOD COUNT 9.4 K/mm3 (4.0-10.0)
[2020-09-04 18:39] LABS: EPI CELLS >36 /uL (0-25.1); HYALINE CASTS 2 /uL (0-3.1); PH,URINE 5.5 (5.0-8.0); URINE APPEARANCE TURBID; URINE BACTERIA 981 /uL (0-1359); URINE BILIRUBIN NEGATIVE (NEGATIVE); URINE COLOR YELLOW; URINE GLUCOSE (UA) NEGATIVE (NEGATIVE); URINE KETONE NEGATIVE (NEGATIVE); URINE LEUK ESTERASE 2+ (NEGATIVE); URINE NITRITE NEGATIVE (NEGATIVE); URINE PROTEIN 1+ (NEGATIVE); URINE UROBILINOGEN 0.2 mg/dL (0.2-1.0); URINE WBC 719 /uL (0-25.8)
[2020-09-04 20:51] LABS: URINE RBC 45 /uL (0-23.9); YEAST PRESENT (NEGATIVE)
[2020-09-04] MEDS: ATORVASTATIN CA 80 MG TABLET (FP) PO SCH (22:28)
[2020-09-04] MEDS ORDERED: ACETAMINOPHEN 325 MG TABLET (FP) PO ONE (23:48)
[2020-09-05] MEDS: PANTOPRAZOLE SODIUM 80 MG in SODIUM CHLORIDE 100 ML IVPB SCH ×2 (05:10→15:34)
[2020-09-05] MEDS: INSULIN SLIDING SCALE (NOVOLOG) 1 VIAL SQ SCH ×4 (06:16→22:40)
[2020-09-05 06:51] LABS: BASO % 0.9 % (0-2.0); EOS % 9.7 % (0-4.5); HEMATOCRIT 23.3 % (32.4-45.2); HEMOGLOBIN 7.7 GM/dL (10.7-15.3); MCH 31.4 pg (25.7-33.7); MCHC 32.8 g/dl (32.0-36.0); MEAN CELL VOLUME 95.5 fl (80-96); MEAN PLT VOLUME 10.6 fl (7.5-11.1); MONO % 8.4 % (3.8-10.2); PLATELET COUNT 181 K/MM3 (134-434); RBC 2.44 M/mm3 (3.60-5.2); RDW 15.7 % (11.6-15.6); WHITE BLOOD COUNT 8.8 K/mm3 (4.0-10.0)
[2020-09-05 07:07] LABS: POTASSIUM 4.1 mmol/L (3.5-5.1)
[2020-09-05 07:11] LABS: ALBUMIN 2.4 g/dl (3.4-5.0)
[2020-09-05 07:13] LABS: BLOOD UREA NITROGEN 13.8 mg/dL (7-18); CALCIUM 8.9 mg/dL (8.5-10.1); MAGNESIUM 1.5 mg/dL (1.8-2.4)
[2020-09-05 07:16] LABS: TOT PROT 5.8 g/dl (6.4-8.2)
[2020-09-05 07:17] LABS: CREATININE 1.3 mg/dL (0.55-1.3)
[2020-09-05 07:18] LABS: BILIRUBIN,TOTAL 0.8 mg/dL (0.2-1)
[2020-09-05 09:18] LABS: INR 1.34 (0.83-1.09); PROTHROMBIN TIME (PATIENT) 16.1 SEC (9.7-13.0)
[2020-09-05] MEDS ORDERED: SODIUM PHOSPHATE - 15 MM in SODIUM CHLORIDE 250 ML IVPB ONE (09:32)
[2020-09-05] MEDS ORDERED: MAGNESIUM SULF 50% (8.12 MEQ/2 ML-1 GM VIAL) IVPB ONE (09:33)
[2020-09-05] MEDS ORDERED: APIXABAN 5 MG TABLET PO SCH (10:00)
[2020-09-05] MEDS: AMINO ACIDS 4.25%/D5W 1,000 ML IV SCH (12:46)
[2020-09-05] MEDS ORDERED: ZINC OXIDE 20% TOPICAL OINTMENT 30 GM TUBE TP SCH (13:00)
[2020-09-05] MEDS ORDERED: NYSTATIN POWDER 100,000 UNITS/GM - 15 GM TOPICAL POWDER TP SCH (13:00)
[2020-09-05] MEDS: ZINC OXIDE 20% TOPICAL OINTMENT 30 GM TUBE TP SCH ×2 (15:39→22:41)
[2020-09-05] MEDS: PANTOPRAZOLE 40 MG TABLET PO SCH (15:39)
[2020-09-05 16:59] LABS: HEMATOCRIT 23.5 % (32.4-45.2); HEMOGLOBIN 7.8 GM/dL (10.7-15.3); MCH 31.6 pg (25.7-33.7); MEAN CELL VOLUME 95.6 fl (80-96); PLATELET COUNT 180 K/MM3 (134-434); RBC 2.46 M/mm3 (3.60-5.2); WHITE BLOOD COUNT 7.3 K/mm3 (4.0-10.0)
[2020-09-05 19:58] LABS: POTASSIUM 4.1 mmol/L (3.5-5.1)
[2020-09-05 20:00] LABS: BLOOD UREA NITROGEN 12.7 mg/dL (7-18)
[2020-09-05 20:03] LABS: CREATININE 1.2 mg/dL (0.55-1.3)
[2020-09-05] MEDS ORDERED: APIXABAN 5 MG TABLET PO ONE (22:00)
[2020-09-05] MEDS: ATORVASTATIN CA 80 MG TABLET (FP) PO SCH (22:41)
[2020-09-05] MEDS: CARVEDILOL 3.125 MG TABLET (FP) PO SCH (22:41)
[2020-09-06] MEDS: INSULIN SLIDING SCALE (NOVOLOG) 1 VIAL SQ SCH ×4 (06:30→22:48)
[2020-09-06 09:06] LABS: EOS % 12.4 % (0-4.5); HEMATOCRIT 22.9 % (32.4-45.2); HEMOGLOBIN 7.6 GM/dL (10.7-15.3); LYMPH % 19.7 % (8-40); MCH 32.2 pg (25.7-33.7); MCHC 33.3 g/dl (32.0-36.0); MEAN CELL VOLUME 96.7 fl (80-96); MEAN PLT VOLUME 11.1 fl (7.5-11.1); MONO % 8.4 % (3.8-10.2); NEUT % 58.5 % (42.8-82.8); PLATELET COUNT 176 K/MM3 (134-434); RBC 2.37 M/mm3 (3.60-5.2); RDW 15.5 % (11.6-15.6); WHITE BLOOD COUNT 7.4 K/mm3 (4.0-10.0)
[2020-09-06 09:32] LABS: POTASSIUM 3.9 mmol/L (3.5-5.1)
[2020-09-06 09:44] LABS: BILIRUBIN,TOTAL 0.6 mg/dL (0.2-1); TOT PROT 5.7 g/dl (6.4-8.2)
[2020-09-06 09:50] LABS: BLOOD UREA NITROGEN 11.9 mg/dL (7-18)
[2020-09-06 09:51] LABS: ALBUMIN 2.5 g/dl (3.4-5.0)
[2020-09-06 09:55] LABS: CALCIUM 9.2 mg/dL (8.5-10.1); CREATININE 1.2 mg/dL (0.55-1.3); MAGNESIUM 1.8 mg/dL (1.8-2.4); PHOSPHOROUS 2.3 mg/dL (2.5-4.9)
[2020-09-06] MEDS: ZINC OXIDE 20% TOPICAL OINTMENT 30 GM TUBE TP SCH ×2 (11:11→22:43)
[2020-09-06] MEDS: PANTOPRAZOLE 40 MG TABLET PO SCH (11:11)
[2020-09-06] MEDS: CARVEDILOL 3.125 MG TABLET (FP) PO SCH ×2 (11:11→22:44)
[2020-09-06] MEDS: NYSTATIN POWDER 100,000 UNITS/GM - 15 GM TOPICAL POWDER TP SCH (15:47)
[2020-09-06] MEDS: ASPIRIN COATED 81 MG TABLET.EC PO SCH (15:47)
[2020-09-06] MEDS: AMINO ACIDS 4.25%/D5W 1,000 ML IV SCH (15:49)
[2020-09-06] MEDS ORDERED: PT OWN MED DRAWER 7, Y5N ONE ×2 (22:41→23:53)
[2020-09-06] MEDS: ATORVASTATIN CA 80 MG TABLET (FP) PO SCH (22:44)
[2020-09-07] MEDS: INSULIN SLIDING SCALE (NOVOLOG) 1 VIAL SQ SCH ×4 (07:01→21:38)
[2020-09-07] MEDS: VALSARTAN 80 MG TABLET PO SCH (10:01)
[2020-09-07] MEDS: ASPIRIN COATED 81 MG TABLET.EC PO SCH (10:01)
[2020-09-07] MEDS: CARVEDILOL 3.125 MG TABLET (FP) PO SCH ×2 (10:01→22:06)
[2020-09-07] MEDS: PANTOPRAZOLE 40 MG TABLET PO SCH (10:01)
[2020-09-07] MEDS: NYSTATIN POWDER 100,000 UNITS/GM - 15 GM TOPICAL POWDER TP SCH (10:02)
[2020-09-07] MEDS: ZINC OXIDE 20% TOPICAL OINTMENT 30 GM TUBE TP SCH ×2 (10:02→22:07)
[2020-09-07] MEDS ORDERED: FUROSEMIDE 40 MG/4 ML INJECTABLE VIAL IVPUSH ONE (10:17)
[2020-09-07 10:33] LABS: BASO % 0.8 % (0-2.0); EOS % 11.6 % (0-4.5); HEMATOCRIT 24.2 % (32.4-45.2); LYMPH % 23.1 % (8-40); MCH 32.3 pg (25.7-33.7); MCHC 33.2 g/dl (32.0-36.0); MEAN CELL VOLUME 97.2 fl (80-96); MEAN PLT VOLUME 10.7 fl (7.5-11.1); MONO % 8.9 % (3.8-10.2); NEUT % 55.6 % (42.8-82.8); PLATELET COUNT 188 K/MM3 (134-434); RBC 2.49 M/mm3 (3.60-5.2); RDW 16.3 % (11.6-15.6); WHITE BLOOD COUNT 7.2 K/mm3 (4.0-10.0)
[2020-09-07 10:53] LABS: POTASSIUM 3.6 mmol/L (3.5-5.1)
[2020-09-07 10:55] LABS: CALCIUM 9.1 mg/dL (8.5-10.1)
[2020-09-07 10:56] LABS: ALBUMIN 2.4 g/dl (3.4-5.0); BLOOD UREA NITROGEN 12.6 mg/dL (7-18); MAGNESIUM 1.8 mg/dL (1.8-2.4)
[2020-09-07 10:59] LABS: CREATININE 1.5 mg/dL (0.55-1.3); PHOSPHOROUS 2.2 mg/dL (2.5-4.9)
[2020-09-07 11:00] LABS: BILIRUBIN,TOTAL 0.4 mg/dL (0.2-1)
[2020-09-07 11:01] LABS: TOT PROT 5.9 g/dl (6.4-8.2)
[2020-09-07] MEDS ORDERED: POTASSIUM CHLORIDE TABS 20 MEQ TABLET.ER (FP) PO ONE (11:05)
[2020-09-07] MEDS ORDERED: MAGNESIUM SULF 50% (8.12 MEQ/2 ML-1 GM VIAL) IVPB ONE (11:07)
[2020-09-07] MEDS ORDERED: SODIUM PHOSPHATE - 15 MM in SODIUM CHLORIDE 250 ML IVPB ONE (11:07)
[2020-09-07] MEDS ORDERED: KCL 10 MEQ IVPB 10 MEQ/100 ML INFUS.BAG IVPB SCH (11:15)
[2020-09-07] MEDS: AMINO ACIDS 4.25%/D5W 1,000 ML IV SCH (14:25)
[2020-09-07] MEDS: ATORVASTATIN CA 80 MG TABLET (FP) PO SCH (22:06)
[2020-09-08] MEDS: INSULIN SLIDING SCALE (NOVOLOG) 1 VIAL SQ SCH ×4 (06:30→21:21)
[2020-09-08 08:09] LABS: BASO % 0.8 % (0-2.0); EOS % 16.3 % (0-4.5); HEMATOCRIT 23.7 % (32.4-45.2); HEMOGLOBIN 7.9 GM/dL (10.7-15.3); LYMPH % 23.9 % (8-40); MCH 32.4 pg (25.7-33.7); MCHC 33.5 g/dl (32.0-36.0); MEAN CELL VOLUME 96.7 fl (80-96); MEAN PLT VOLUME 11.2 fl (7.5-11.1); MONO % 9.7 % (3.8-10.2); NEUT % 49.3 % (42.8-82.8); PLATELET COUNT 187 K/MM3 (134-434); RBC 2.45 M/mm3 (3.60-5.2); RDW 16.3 % (11.6-15.6); WHITE BLOOD COUNT 7.9 K/mm3 (4.0-10.0)
[2020-09-08 08:26] LABS: POTASSIUM 3.9 mmol/L (3.5-5.1)
[2020-09-08 08:35] LABS: ALBUMIN 2.4 g/dl (3.4-5.0); BLOOD UREA NITROGEN 15.2 mg/dL (7-18); CALCIUM 8.6 mg/dL (8.5-10.1); MAGNESIUM 1.7 mg/dL (1.8-2.4)
[2020-09-08 08:38] LABS: CREATININE 1.4 mg/dL (0.55-1.3); PHOSPHOROUS 2.7 mg/dL (2.5-4.9)
[2020-09-08 08:40] LABS: BILIRUBIN,TOTAL 0.5 mg/dL (0.2-1); TOT PROT 5.8 g/dl (6.4-8.2)
[2020-09-08] MEDS: ASPIRIN COATED 81 MG TABLET.EC PO SCH (09:30)
[2020-09-08] MEDS: PANTOPRAZOLE 40 MG TABLET PO SCH (09:31)
[2020-09-08] MEDS: CARVEDILOL 3.125 MG TABLET (FP) PO SCH ×2 (09:31→21:19)
[2020-09-08] MEDS: VALSARTAN 80 MG TABLET PO SCH (09:31)
[2020-09-08] MEDS: NYSTATIN POWDER 100,000 UNITS/GM - 15 GM TOPICAL POWDER TP SCH (09:31)
[2020-09-08] MEDS: ZINC OXIDE 20% TOPICAL OINTMENT 30 GM TUBE TP SCH ×2 (09:31→21:21)
[2020-09-08] MEDS ORDERED: FUROSEMIDE 40 MG/4 ML INJECTABLE VIAL IVPUSH ONE (11:17)
[2020-09-08] MEDS ORDERED: MAGNESIUM SULF 50% (8.12 MEQ/2 ML-1 GM VIAL) IVPB ONE (11:19)
[2020-09-08] MEDS: ATORVASTATIN CA 80 MG TABLET (FP) PO SCH (21:19)
[2020-09-09] MEDS: INSULIN SLIDING SCALE (NOVOLOG) 1 VIAL SQ SCH ×4 (06:20→21:37)
[2020-09-09 09:06] LABS: BASO % 0.9 % (0-2.0); EOS % 14.7 % (0-4.5); HEMATOCRIT 29.1 % (32.4-45.2); HEMOGLOBIN 9.4 GM/dL (10.7-15.3); LYMPH % 23.4 % (8-40); MCHC 32.5 g/dl (32.0-36.0); MEAN CELL VOLUME 95.4 fl (80-96); MEAN PLT VOLUME 10.6 fl (7.5-11.1); MONO % 7.6 % (3.8-10.2); NEUT % 53.4 % (42.8-82.8); PLATELET COUNT 211 K/MM3 (134-434); RBC 3.05 M/mm3 (3.60-5.2); RDW 16.8 % (11.6-15.6); WHITE BLOOD COUNT 7.3 K/mm3 (4.0-10.0)
[2020-09-09] MEDS: ASPIRIN COATED 81 MG TABLET.EC PO SCH (09:34)
[2020-09-09] MEDS: PANTOPRAZOLE 40 MG TABLET PO SCH (09:34)
[2020-09-09] MEDS: CARVEDILOL 3.125 MG TABLET (FP) PO SCH ×2 (09:34→21:30)
[2020-09-09] MEDS: NYSTATIN POWDER 100,000 UNITS/GM - 15 GM TOPICAL POWDER TP SCH (09:35)
[2020-09-09] MEDS: ZINC OXIDE 20% TOPICAL OINTMENT 30 GM TUBE TP SCH ×2 (09:35→23:15)
[2020-09-09 09:44] LABS: POTASSIUM 4.3 mmol/L (3.5-5.1)
[2020-09-09 09:47] LABS: ALBUMIN 2.6 g/dl (3.4-5.0); BLOOD UREA NITROGEN 16.3 mg/dL (7-18)
[2020-09-09 09:49] LABS: CREATININE 1.5 mg/dL (0.55-1.3)
[2020-09-09 09:50] LABS: BILIRUBIN,TOTAL 1.1 mg/dL (0.2-1)
[2020-09-09 09:52] LABS: TOT PROT 6.3 g/dl (6.4-8.2)
[2020-09-09 09:53] LABS: CALCIUM 9.3 mg/dL (8.5-10.1)
[2020-09-09] MEDS ORDERED: INSULIN (NOVOLOG MIX 70/30) 100 UNITS/ML MDV SQ ONE (16:35)
[2020-09-09] MEDS: ATORVASTATIN CA 80 MG TABLET (FP) PO SCH (21:30)
[2020-09-10] MEDS: INSULIN SLIDING SCALE (NOVOLOG) 1 VIAL SQ SCH ×4 (06:01→22:50)
[2020-09-10 08:17] LABS: BASO % 0.7 % (0-2.0); EOS % 9.7 % (0-4.5); HEMOGLOBIN 9.4 GM/dL (10.7-15.3); LYMPH % 25.4 % (8-40); MCH 30.8 pg (25.7-33.7); MCHC 32.5 g/dl (32.0-36.0); MEAN CELL VOLUME 94.8 fl (80-96); MEAN PLT VOLUME 10.7 fl (7.5-11.1); MONO % 10.2 % (3.8-10.2); PLATELET COUNT 200 K/MM3 (134-434); RBC 3.06 M/mm3 (3.60-5.2); RDW 16.4 % (11.6-15.6); WHITE BLOOD COUNT 7.1 K/mm3 (4.0-10.0)
[2020-09-10 08:26] LABS: POTASSIUM 4.1 mmol/L (3.5-5.1)
[2020-09-10 08:29] LABS: CALCIUM 9.2 mg/dL (8.5-10.1)
[2020-09-10 08:31] LABS: BLOOD UREA NITROGEN 14.5 mg/dL (7-18); MAGNESIUM 1.9 mg/dL (1.8-2.4)
[2020-09-10 08:32] LABS: ALBUMIN 2.5 g/dl (3.4-5.0)
[2020-09-10 08:34] LABS: BILIRUBIN,TOTAL 1.2 mg/dL (0.2-1); CREATININE 1.4 mg/dL (0.55-1.3); TOT PROT 5.9 g/dl (6.4-8.2)
[2020-09-10 08:35] LABS: PHOSPHOROUS 2.5 mg/dL (2.5-4.9)
[2020-09-10] MEDS ORDERED: PT OWN MED DRAWER 7, Y5N ONE ×2 (10:55→22:45)
[2020-09-10] MEDS: CARVEDILOL 3.125 MG TABLET (FP) PO SCH ×2 (11:04→22:50)
[2020-09-10] MEDS: ASPIRIN COATED 81 MG TABLET.EC PO SCH (11:04)
[2020-09-10] MEDS: PANTOPRAZOLE 40 MG TABLET PO SCH (11:05)
[2020-09-10] MEDS: ZINC OXIDE 20% TOPICAL OINTMENT 30 GM TUBE TP SCH ×2 (15:33→22:51)
[2020-09-10] MEDS: NYSTATIN POWDER 100,000 UNITS/GM - 15 GM TOPICAL POWDER TP SCH (15:34)
[2020-09-10] MEDS: ATORVASTATIN CA 80 MG TABLET (FP) PO SCH (22:50)
[2020-09-11] MEDS: INSULIN SLIDING SCALE (NOVOLOG) 1 VIAL SQ SCH ×4 (06:25→21:44)
[2020-09-11 09:58] LABS: BASO % 0.9 % (0-2.0); HEMATOCRIT 28.5 % (32.4-45.2); HEMOGLOBIN 9.4 GM/dL (10.7-15.3); LYMPH % 22.6 % (8-40); MCH 31.8 pg (25.7-33.7); MEAN CELL VOLUME 96.5 fl (80-96); MEAN PLT VOLUME 10.3 fl (7.5-11.1); MONO % 9.5 % (3.8-10.2); PLATELET COUNT 186 K/MM3 (134-434); RBC 2.95 M/mm3 (3.60-5.2); RDW 16.5 % (11.6-15.6); WHITE BLOOD COUNT 7.5 K/mm3 (4.0-10.0)
[2020-09-11 10:22] LABS: POTASSIUM 3.9 mmol/L (3.5-5.1)
[2020-09-11 10:25] LABS: ALBUMIN 2.5 g/dl (3.4-5.0); BLOOD UREA NITROGEN 15.5 mg/dL (7-18); CALCIUM 9.2 mg/dL (8.5-10.1)
[2020-09-11 10:26] LABS: MAGNESIUM 1.8 mg/dL (1.8-2.4)
[2020-09-11 10:29] LABS: CREATININE 1.5 mg/dL (0.55-1.3); PHOSPHOROUS 2.3 mg/dL (2.5-4.9)
[2020-09-11] MEDS ORDERED: PT OWN MED DRAWER 7, Y5N ONE (10:46)
[2020-09-11] MEDS: PANTOPRAZOLE 40 MG TABLET PO SCH (10:49)
[2020-09-11] MEDS: ASPIRIN COATED 81 MG TABLET.EC PO SCH (10:49)
[2020-09-11] MEDS: CARVEDILOL 6.25 MG TABLET (FP) PO SCH ×2 (10:49→21:43)
[2020-09-11] MEDS: ZINC OXIDE 20% TOPICAL OINTMENT 30 GM TUBE TP SCH ×2 (10:53→21:44)
[2020-09-11] MEDS: NYSTATIN POWDER 100,000 UNITS/GM - 15 GM TOPICAL POWDER TP SCH (10:53)
[2020-09-11] MEDS: ATORVASTATIN CA 80 MG TABLET (FP) PO SCH (21:43)
[2020-09-12] MEDS: INSULIN SLIDING SCALE (NOVOLOG) 1 VIAL SQ SCH ×3 (06:03→16:59)
[2020-09-12] MEDS: VALSARTAN 80 MG TABLET PO SCH (10:13)
[2020-09-12] MEDS: PANTOPRAZOLE 40 MG TABLET PO SCH (10:13)
[2020-09-12] MEDS: CARVEDILOL 6.25 MG TABLET (FP) PO SCH (10:13)
[2020-09-12] MEDS: ASPIRIN COATED 81 MG TABLET.EC PO SCH (10:13)
[2020-09-12] MEDS: ZINC OXIDE 20% TOPICAL OINTMENT 30 GM TUBE TP SCH (10:14)
[2020-09-12] MEDS: NYSTATIN POWDER 100,000 UNITS/GM - 15 GM TOPICAL POWDER TP SCH (10:14)
[2020-09-12] MEDS ORDERED: NAPH,MB-DB/K PH,MBDB POWDER PACKET PO ONE (15:27)
[2020-09-12 15:29] VITALS: BP 126/76; PULSE 80; TEMP 98.5
== END 2020-09-12 18:33 | disposition home health service (06) | DRG 207 ==
LOC: JER 04:20 → JERBED 05:01 → JICU 10:32 → J4W 08-21 16:26 → JICU 09-02 01:02 → J8W 09-03 17:38
PROVIDERS: ADMIT Internal Medicine Pulmonary Disease; ATTEND Internal Medicine
PROC: 5A1955Z Respiratory Ventilation, Greater than 96 Consecutive Hours (ICD-10-PCS; principal; 2020-08-06)
PROC: 0BH17EZ Insertion of Endotracheal Airway into Trachea, Via Natural or Artificial Opening (ICD-10-PCS; 2020-08-06)
PROC: 0DH67UZ Insertion of Feeding Device into Stomach, Via Natural or Artificial Opening (ICD-10-PCS; 2020-08-06)
PROC: 3E0G76Z Introduction of Nutritional Substance into Upper GI, Via Natural or Artificial Opening (ICD-10-PCS; 2020-08-06)
PROC: 30233N1 Transfusion of Nonautologous Red Blood Cells into Peripheral Vein, Percutaneous Approach (ICD-10-PCS; 2020-08-17)
PROC: 06H03DZ Insertion of Intraluminal Device into Inferior Vena Cava, Percutaneous Approach (ICD-10-PCS; 2020-09-03)
PROC: 0DJ08ZZ Inspection of Upper Intestinal Tract, Via Natural or Artificial Opening Endoscopic (ICD-10-PCS; 2020-09-05)
DX: J96.22 Acute and chronic respiratory failure with hypercapnia (principal); I50.33 Acute on chronic diastolic (congestive) heart failure; J18.9 Pneumonia, unspecified organism; G93.41 Metabolic encephalopathy; I13.0 Hypertensive heart and chronic kidney disease with heart failure and stage 1 through stage 4 chronic kidney disease, or unspecified chronic kidney disease; Z68.41 Body mass index [BMI] 40.0-44.9, adult; J98.11 Atelectasis; N17.9 Acute kidney failure, unspecified; I24.8 Other forms of acute ischemic heart disease; E87.0 Hyperosmolality and hypernatremia; A04.72 Enterocolitis due to Clostridium difficile, not specified as recurrent; F05 Delirium due to known physiological condition; N39.0 Urinary tract infection, site not specified; I82.431 Acute embolism and thrombosis of right popliteal vein; I82.441 Acute embolism and thrombosis of right tibial vein; I82.412 Acute embolism and thrombosis of left femoral vein; B37.0 Candidal stomatitis; K92.0 Hematemesis; D68.9 Coagulation defect, unspecified; D62 Acute posthemorrhagic anemia; J96.21 Acute and chronic respiratory failure with hypoxia; J44.9 Chronic obstructive pulmonary disease, unspecified; I25.10 Atherosclerotic heart disease of native coronary artery without angina pectoris; F03.90 Unspecified dementia, unspecified severity, without behavioral disturbance, psychotic disturbance, mood disturbance, and anxiety; E78.5 Hyperlipidemia, unspecified; I25.2 Old myocardial infarction; Z99.81 Dependence on supplemental oxygen; E66.01 Morbid (severe) obesity due to excess calories; D50.9 Iron deficiency anemia, unspecified; N18.2 Chronic kidney disease, stage 2 (mild); I48.0 Paroxysmal atrial fibrillation; K31.819 Angiodysplasia of stomach and duodenum without bleeding; J01.90 Acute sinusitis, unspecified; I45.81 Long QT syndrome; E87.5 Hyperkalemia; K44.9 Diaphragmatic hernia without obstruction or gangrene
CPT/HCPCS: 36415; 36430; 36600; 37191; 70450-TC; 70547-TC; 70551-TC; 71045-TC-FY; 73030-TC-RT-FY; 74018-TC-FY; 76705-TC; 76942-TC; 80048; 80053; 80061; 80076; 81003; 82140; 82248; 82272; 82607; 82728; 82803; 82962; 83516; 83520; 83605; 83721; 83735; 83880; 84100; 84155; 84165; 84443; 84484; 85025; 85027; 85610; 85651; 85730; 86038; 86140; 86162; 86225; 86256; 86850; 86900; 86901; 86922; 87040; 87070; 87086; 87186; 87205; 87324; 87449; 87899; 93005; 93010; 93306-TC; 93880-TC; 93970-TC; 93971; 94002; 97116-GP; 97163-GP; 99291; C1880; C9803; J0131; J1644; P9058; U0003

== ENCOUNTER 2020-09-18 07:44 | Observation (INO) | payer OTHER ==
[2020-09-18 08:09] VITALS: BMI 56.3
[2020-09-18 11:18] LABS: BASO % 0.8 % (0-2.0); EOS % 3.6 % (0-4.5); HEMATOCRIT 29.1 % (32.4-45.2); HEMOGLOBIN 9.5 GM/dL (10.7-15.3); LYMPH % 11.7 % (8-40); MCH 31.4 pg (25.7-33.7); MCHC 32.6 g/dl (32.0-36.0); MEAN CELL VOLUME 96.4 fl (80-96); MEAN PLT VOLUME 10.3 fl (7.5-11.1); MONO % 7.4 % (3.8-10.2); NEUT % 76.5 % (42.8-82.8); PLATELET COUNT 261 K/MM3 (134-434); RBC 3.02 M/mm3 (3.60-5.2); RDW 15.5 % (11.6-15.6); WHITE BLOOD COUNT 9.4 K/mm3 (4.0-10.0)
[2020-09-18] MEDS ORDERED: ACETAMINOPHEN 1000 MG/100 ML VIAL (NON FORMULARY) IVPB ONE (11:28)
[2020-09-18 11:36] LABS: POTASSIUM 4.5 mmol/L (3.5-5.1)
[2020-09-18 11:38] LABS: BLOOD UREA NITROGEN 18.4 mg/dL (7-18); CALCIUM 9.4 mg/dL (8.5-10.1)
[2020-09-18 11:39] LABS: ALBUMIN 2.9 g/dl (3.4-5.0); MAGNESIUM 1.7 mg/dL (1.8-2.4)
[2020-09-18 11:42] LABS: CREATININE 1.6 mg/dL (0.55-1.3)
[2020-09-18 11:43] LABS: BILIRUBIN,TOTAL 0.6 mg/dL (0.2-1); TOT PROT 6.8 g/dl (6.4-8.2)
[2020-09-18] MEDS ORDERED: ACETAMINOPHEN INJECTION 100 ML IVPB ONE (12:08)
[2020-09-18] MEDS ORDERED: ACETAMINOPHEN 325 MG TABLET (FP) PO PRN (17:04)
[2020-09-18] MEDS ORDERED: ACETAMINOPHEN 325 MG TABLET (FP) ONE (17:25)
[2020-09-18] MEDS ORDERED: HEPARIN NA (PORCINE) 5,000 UNITS/ML 1ML VIAL SQ SCH (18:00)
[2020-09-18 18:30] LABS: URINE APPEARANCE CLEAR; URINE BILIRUBIN NEGATIVE (NEGATIVE); URINE COLOR YELLOW; URINE GLUCOSE (UA) NEGATIVE (NEGATIVE); URINE KETONE NEGATIVE (NEGATIVE); URINE LEUK ESTERASE NEGATIVE (NEGATIVE); URINE NITRITE NEGATIVE (NEGATIVE); URINE PROTEIN NEGATIVE (NEGATIVE)
[2020-09-18] MEDS ORDERED: APIXABAN 5 MG TABLET ONE (21:25)
[2020-09-18] MEDS ORDERED: ATORVASTATIN CA 80 MG TABLET (FP) ONE (21:25)
[2020-09-18] MEDS: APIXABAN 5 MG TABLET PO SCH (21:43)
[2020-09-18] MEDS: ZINC OXIDE 20% TOPICAL OINTMENT 30 GM TUBE TP SCH (21:43)
[2020-09-18] MEDS: CARVEDILOL 6.25 MG TABLET (FP) PO SCH (21:43)
[2020-09-18] MEDS ORDERED: ATORVASTATIN CA 80 MG TABLET (FP) PO SCH (22:00)
[2020-09-19] MEDS ORDERED: MAGNESIUM SULFATE IN WATER 2 GM/50 ML IVPB IVPB ONE (09:41)
[2020-09-19] MEDS ORDERED: APIXABAN 5 MG TABLET ONE (09:41)
[2020-09-19] MEDS ORDERED: CHOLECALCIFEROL (VIT D3) 1,000 UNIT (25 MCG) TABLET ONE (09:41)
[2020-09-19] MEDS ORDERED: ACETAMINOPHEN 325 MG TABLET (FP) ONE (09:44)
[2020-09-19] MEDS: CARVEDILOL 6.25 MG TABLET (FP) PO SCH (09:50)
[2020-09-19] MEDS: APIXABAN 5 MG TABLET PO SCH (09:50)
[2020-09-19] MEDS: ZINC OXIDE 20% TOPICAL OINTMENT 30 GM TUBE TP SCH (09:51)
[2020-09-19] MEDS ORDERED: PANTOPRAZOLE 40 MG TABLET PO SCH (10:00)
[2020-09-19] MEDS ORDERED: ALLOPURINOL 100 MG TABLET (FP) PO SCH (10:00)
[2020-09-19] MEDS ORDERED: ISOSORBIDE MONONITRATE 30 MG TAB.SR.24H (FP) PO SCH (10:00)
[2020-09-19] MEDS ORDERED: CHOLECALCIFEROL (VIT D3) 1,000 UNIT (25 MCG) TABLET PO SCH (10:00)
[2020-09-19] MEDS ORDERED: MAGNESIUM 2GM/50ML STERILE WATER IVPB IVPB ONE (10:00)
[2020-09-19 10:54] LABS: POTASSIUM 4.2 mmol/L (3.5-5.1)
[2020-09-19 10:56] LABS: CALCIUM 8.9 mg/dL (8.5-10.1)
[2020-09-19 10:57] LABS: MAGNESIUM 2.4 mg/dL (1.8-2.4)
[2020-09-19 11:00] LABS: CREATININE 1.4 mg/dL (0.55-1.3); PHOSPHOROUS 2.6 mg/dL (2.5-4.9)
[2020-09-19] MEDS ORDERED: INSULIN SLIDING SCALE (NOVOLOG) 1 VIAL SQ SCH (11:00)
[2020-09-19 16:55] VITALS: BP 155/74; PULSE 74; TEMP 97.6
== END 2020-09-19 16:56 | disposition home or self-care (01) ==
LOC: JER 07:44 → JERBED 15:15
PROVIDERS: ADMIT Student in an Organized Health Care Education/Training Program; ATTEND Internal Medicine
PROC: 3E033GC Introduction of Other Therapeutic Substance into Peripheral Vein, Percutaneous Approach (ICD-10-PCS; principal; 2020-09-18)
PROC: 3E033NZ Introduction of Analgesics, Hypnotics, Sedatives into Peripheral Vein, Percutaneous Approach (ICD-10-PCS; 2020-09-18)
DX: I13.0 Hypertensive heart and chronic kidney disease with heart failure and stage 1 through stage 4 chronic kidney disease, or unspecified chronic kidney disease (principal); I50.33 Acute on chronic diastolic (congestive) heart failure; I25.10 Atherosclerotic heart disease of native coronary artery without angina pectoris; N18.9 Chronic kidney disease, unspecified; K80.20 Calculus of gallbladder without cholecystitis without obstruction; Z91.81 History of falling; J44.9 Chronic obstructive pulmonary disease, unspecified; E78.5 Hyperlipidemia, unspecified; I25.2 Old myocardial infarction; K57.92 Diverticulitis of intestine, part unspecified, without perforation or abscess without bleeding; F03.90 Unspecified dementia, unspecified severity, without behavioral disturbance, psychotic disturbance, mood disturbance, and anxiety; G40.909 Epilepsy, unspecified, not intractable, without status epilepticus; Z87.891 Personal history of nicotine dependence; Z68.43 Body mass index [BMI] 50.0-59.9, adult; R10.84 Generalized abdominal pain; E66.01 Morbid (severe) obesity due to excess calories; Z86.73 Personal history of transient ischemic attack (TIA), and cerebral infarction without residual deficits; Z99.81 Dependence on supplemental oxygen; I48.0 Paroxysmal atrial fibrillation; Z79.01 Long term (current) use of anticoagulants
CPT/HCPCS: 36415; 71045-TC-FY; 74177-TC; 80048; 80053; 81003; 82550; 82565; 82962; 83605; 83690; 83735; 84100; 84156; 84484; 85025; 87086; 93005; 93010; 96374; 96375; 99285-25; C9803; G0378; J0131; Q9967; U0003

== ENCOUNTER 2020-11-05 04:51 | Day surgery (SDC) | payer OTHER ==
[2020-10-30 16:33] VITALS: BMI 39.6
[2020-11-05] MEDS ORDERED: ACETAMINOPHEN 325 MG TABLET (FP) ONE (13:04)
[2020-11-05 16:38] VITALS: BP 160/65; PULSE 80; TEMP 97.8
== END 2020-11-05 16:45 | disposition home or self-care (01) ==
LOC: JRADIR 04:51
PROVIDERS: ATTEND Internal Medicine
PROC: 06PY3DZ Removal of Intraluminal Device from Lower Vein, Percutaneous Approach (ICD-10-PCS; principal; 2020-11-05)
DX: Z45.89 Encounter for adjustment and management of other implanted devices (principal); Z86.718 Personal history of other venous thrombosis and embolism; Z79.01 Long term (current) use of anticoagulants
CPT/HCPCS: 37193; 75825-TC-FY

== ENCOUNTER 2020-12-13 07:32 | Inpatient (IN) | payer OTHER ==
[2020-12-13] MEDS ORDERED: NITROGLYCERIN SUBLINGUAL 1/150 0.4 MG TAB SL ONE ×2 (07:44→07:54)
[2020-12-13] MEDS ORDERED: NITROGLYCERIN SUBLINGUAL 1/150 0.4 MG TAB ONE (07:53)
[2020-12-13] MEDS ORDERED: VALSARTAN 40 MG TABLET PO ONE (09:26)
[2020-12-13] MEDS ORDERED: FUROSEMIDE 40 MG/4 ML INJECTABLE VIAL IVPUSH ONE (09:26)
[2020-12-13] MEDS ORDERED: APIXABAN 5 MG TABLET PO ONE (09:26)
[2020-12-13] MEDS ORDERED: NITROGLYCERIN 2% OINTMENT - 1GM PACKET TD ONE ×2 (09:28→09:38)
[2020-12-13] MEDS ORDERED: APIXABAN 5 MG TABLET ONE (09:38)
[2020-12-13] MEDS ORDERED: FUROSEMIDE 40 MG/4 ML INJECTABLE VIAL ONE (09:38)
[2020-12-13] MEDS ORDERED: VALSARTAN 80 MG TABLET ONE (09:38)
[2020-12-13 09:47] LABS: BASO % 0.7 % (0-2.0); EOS % 2.2 % (0-4.5); HEMATOCRIT 25.4 % (32.4-45.2); HEMOGLOBIN 8.3 GM/dL (10.7-15.3); MCH 31.4 pg (25.7-33.7); MCHC 32.7 g/dl (32.0-36.0); MEAN CELL VOLUME 96.2 fl (80-96); MEAN PLT VOLUME 10.9 fl (7.5-11.1); MONO % 5.9 % (3.8-10.2); NEUT % 67.2 % (42.8-82.8); PLATELET COUNT 180 K/MM3 (134-434); RBC 2.64 M/mm3 (3.60-5.2); WHITE BLOOD COUNT 7.6 K/mm3 (4.0-10.0)
[2020-12-13 09:49] LABS: INR 1.54 (0.83-1.09); PROTHROMBIN TIME (PATIENT) 18.7 SEC (9.7-13.0)
[2020-12-13 09:52] LABS: ACTIVATED PTT 33.5 SECONDS (25.2-36.5)
[2020-12-13 10:26] LABS: POTASSIUM 4.7 mmol/L (3.5-5.1)
[2020-12-13 10:29] LABS: BLOOD UREA NITROGEN 80.6 mg/dL (7-18); MAGNESIUM 2.1 mg/dL (1.8-2.4)
[2020-12-13 10:32] LABS: CREATININE 3.7 mg/dL (0.55-1.3)
[2020-12-13 10:33] LABS: BILIRUBIN,TOTAL 0.3 mg/dL (0.2-1); TOT PROT 6.9 g/dl (6.4-8.2)
[2020-12-13 10:37] LABS: N-TERMINAL BNP 6067.3 pg/ml (5-125)
[2020-12-13] MEDS ORDERED: HEPARIN NA (PORCINE) 5,000 UNITS/ML 1ML VIAL SQ SCH (12:00)
[2020-12-13] MEDS ORDERED: ALBUTEROL SO4 0.083% IH SOL 2.5 MG/3 ML VIAL.NEB. NEB PRN (14:51)
[2020-12-13] MEDS ORDERED: ALBUTEROL SO4 HFA INHALER IH PRN (15:18)
[2020-12-13] MEDS: ATORVASTATIN CA 80 MG TABLET (FP) PO SCH (22:32)
[2020-12-13] MEDS: APIXABAN 5 MG TABLET PO SCH (22:33)
[2020-12-13] MEDS: DONEPEZIL HCL 10 MG TABLET (FP) PO SCH (22:33)
[2020-12-13] MEDS: FERROUS SO4 325 MG TABLET (FP) PO SCH (22:33)
[2020-12-13] MEDS: CARVEDILOL 12.5 MG TABLET (FP) PO SCH (22:33)
[2020-12-13] MEDS: RANOLAZINE E.R. 500 MG TABLET (FP) PO SCH (22:33)
[2020-12-13] MEDS: FLUTICASONE/SALMETEROL 100 MCG/50 MCG DISKUS IH SCH (23:37)
[2020-12-14 07:20] LABS: BASO % 0.8 % (0-2.0); EOS % 3.7 % (0-4.5); HEMATOCRIT 25.5 % (32.4-45.2); HEMOGLOBIN 8.6 GM/dL (10.7-15.3); LYMPH % 24.8 % (8-40); MCH 31.7 pg (25.7-33.7); MCHC 33.6 g/dl (32.0-36.0); MEAN CELL VOLUME 94.4 fl (80-96); MONO % 5.8 % (3.8-10.2); NEUT % 64.9 % (42.8-82.8); PLATELET COUNT 196 K/MM3 (134-434); WHITE BLOOD COUNT 6.7 K/mm3 (4.0-10.0)
[2020-12-14 07:22] LABS: INR 1.82 (0.83-1.09)
[2020-12-14 07:36] LABS: POTASSIUM 4.4 mmol/L (3.5-5.1)
[2020-12-14 07:38] LABS: CALCIUM 9.3 mg/dL (8.5-10.1)
[2020-12-14 07:39] LABS: ALBUMIN 3.3 g/dl (3.4-5.0); BLOOD UREA NITROGEN 66.8 mg/dL (7-18); MAGNESIUM 2.1 mg/dL (1.8-2.4)
[2020-12-14 07:42] LABS: CREATININE 2.8 mg/dL (0.55-1.3); PHOSPHOROUS 3.6 mg/dL (2.5-4.9)
[2020-12-14 07:43] LABS: BILIRUBIN,TOTAL 0.5 mg/dL (0.2-1); TOT PROT 7.2 g/dl (6.4-8.2)
[2020-12-14] MEDS: RANOLAZINE E.R. 500 MG TABLET (FP) PO SCH ×2 (09:37→22:09)
[2020-12-14] MEDS: FERROUS SO4 325 MG TABLET (FP) PO SCH ×2 (09:37→22:09)
[2020-12-14] MEDS: ALLOPURINOL 100 MG TABLET (FP) PO SCH (09:37)
[2020-12-14] MEDS: APIXABAN 5 MG TABLET PO SCH ×2 (09:37→22:09)
[2020-12-14] MEDS: ASPIRIN COATED 81 MG TABLET.EC PO SCH (09:37)
[2020-12-14] MEDS: VALSARTAN 80 MG TABLET PO SCH (09:38)
[2020-12-14] MEDS: CHOLECALCIFEROL (VIT D3) 1,000 UNIT (25 MCG) TABLET PO SCH (09:38)
[2020-12-14] MEDS: NIFEdipine E.R 60 MG TABLET PO SCH (09:38)
[2020-12-14] MEDS: ISOSORBIDE MONONITRATE 30 MG TAB.SR.24H (FP) PO SCH (09:38)
[2020-12-14] MEDS: CALCIUM 500MG/VIT-D 200 UNITS COMBO TABLET (FP) PO SCH (09:38)
[2020-12-14] MEDS: CARVEDILOL 12.5 MG TABLET (FP) PO SCH ×2 (09:38→22:09)
[2020-12-14] MEDS: PANTOPRAZOLE 40 MG TABLET PO SCH (09:38)
[2020-12-14] MEDS: FLUTICASONE/SALMETEROL 100 MCG/50 MCG DISKUS IH SCH ×2 (09:39→22:08)
[2020-12-14 10:57] VITALS: BMI 42.4
[2020-12-14] MEDS ORDERED: FUROSEMIDE 40 MG/4 ML INJECTABLE VIAL IVPUSH ONE (11:30)
[2020-12-14] MEDS: ATORVASTATIN CA 80 MG TABLET (FP) PO SCH (22:09)
[2020-12-14] MEDS: DONEPEZIL HCL 10 MG TABLET (FP) PO SCH (22:09)
[2020-12-15] MEDS: RANOLAZINE E.R. 500 MG TABLET (FP) PO SCH ×2 (09:36→21:55)
[2020-12-15] MEDS: PANTOPRAZOLE 40 MG TABLET PO SCH (09:36)
[2020-12-15] MEDS: VALSARTAN 80 MG TABLET PO SCH (09:36)
[2020-12-15] MEDS: FERROUS SO4 325 MG TABLET (FP) PO SCH ×2 (09:36→21:55)
[2020-12-15] MEDS: ISOSORBIDE MONONITRATE 30 MG TAB.SR.24H (FP) PO SCH (09:36)
[2020-12-15] MEDS: ALLOPURINOL 100 MG TABLET (FP) PO SCH (09:36)
[2020-12-15] MEDS: ASPIRIN COATED 81 MG TABLET.EC PO SCH (09:36)
[2020-12-15] MEDS: CARVEDILOL 12.5 MG TABLET (FP) PO SCH ×2 (09:36→21:55)
[2020-12-15] MEDS: CALCIUM 500MG/VIT-D 200 UNITS COMBO TABLET (FP) PO SCH (09:36)
[2020-12-15] MEDS: NIFEdipine E.R 60 MG TABLET PO SCH (09:36)
[2020-12-15] MEDS: APIXABAN 5 MG TABLET PO SCH ×2 (09:36→21:55)
[2020-12-15] MEDS: CHOLECALCIFEROL (VIT D3) 1,000 UNIT (25 MCG) TABLET PO SCH (09:36)
[2020-12-15] MEDS: FLUTICASONE/SALMETEROL 100 MCG/50 MCG DISKUS IH SCH ×2 (09:37→21:55)
[2020-12-15 12:32] LABS: BASO % 0.8 % (0-2.0); EOS % 4.4 % (0-4.5); HEMATOCRIT 24.6 % (32.4-45.2); HEMOGLOBIN 8.1 GM/dL (10.7-15.3); LYMPH % 23.7 % (8-40); MCH 31.3 pg (25.7-33.7); MCHC 32.7 g/dl (32.0-36.0); MEAN CELL VOLUME 95.7 fl (80-96); MEAN PLT VOLUME 11.3 fl (7.5-11.1); MONO % 7.4 % (3.8-10.2); NEUT % 63.7 % (42.8-82.8); PLATELET COUNT 167 K/MM3 (134-434); RBC 2.57 M/mm3 (3.60-5.2); RDW 16.7 % (11.6-15.6)
[2020-12-15 12:59] LABS: POTASSIUM 4.5 mmol/L (3.5-5.1)
[2020-12-15 13:03] LABS: ALBUMIN 3.1 g/dl (3.4-5.0); BLOOD UREA NITROGEN 55.7 mg/dL (7-18); CALCIUM 9.3 mg/dL (8.5-10.1)
[2020-12-15 13:06] LABS: CREATININE 2.6 mg/dL (0.55-1.3)
[2020-12-15 13:08] LABS: BILIRUBIN,TOTAL 0.7 mg/dL (0.2-1); TOT PROT 7.1 g/dl (6.4-8.2)
[2020-12-15] MEDS: ATORVASTATIN CA 80 MG TABLET (FP) PO SCH (21:55)
[2020-12-15] MEDS: DONEPEZIL HCL 10 MG TABLET (FP) PO SCH (21:55)
[2020-12-16] MEDS: APIXABAN 5 MG TABLET PO SCH (10:00)
[2020-12-16] MEDS: ISOSORBIDE MONONITRATE 30 MG TAB.SR.24H (FP) PO SCH (10:00)
[2020-12-16] MEDS: NIFEdipine E.R 60 MG TABLET PO SCH (10:00)
[2020-12-16] MEDS: FERROUS SO4 325 MG TABLET (FP) PO SCH (10:00)
[2020-12-16] MEDS: PANTOPRAZOLE 40 MG TABLET PO SCH (10:01)
[2020-12-16] MEDS: CARVEDILOL 12.5 MG TABLET (FP) PO SCH (10:01)
[2020-12-16] MEDS: VALSARTAN 80 MG TABLET PO SCH (10:01)
[2020-12-16] MEDS: CALCIUM 500MG/VIT-D 200 UNITS COMBO TABLET (FP) PO SCH (10:01)
[2020-12-16] MEDS: CHOLECALCIFEROL (VIT D3) 1,000 UNIT (25 MCG) TABLET PO SCH (10:01)
[2020-12-16] MEDS: ALLOPURINOL 100 MG TABLET (FP) PO SCH (10:02)
[2020-12-16] MEDS: RANOLAZINE E.R. 500 MG TABLET (FP) PO SCH (10:02)
[2020-12-16] MEDS: FLUTICASONE/SALMETEROL 100 MCG/50 MCG DISKUS IH SCH (10:03)
[2020-12-16 11:10] LABS: BASO % 0.9 % (0-2.0); HEMATOCRIT 25.5 % (32.4-45.2); HEMOGLOBIN 8.4 GM/dL (10.7-15.3); LYMPH % 26.8 % (8-40); MCH 31.6 pg (25.7-33.7); MCHC 33.2 g/dl (32.0-36.0); MEAN CELL VOLUME 95.2 fl (80-96); MEAN PLT VOLUME 10.8 fl (7.5-11.1); MONO % 7.7 % (3.8-10.2); NEUT % 59.6 % (42.8-82.8); PLATELET COUNT 183 K/MM3 (134-434); RBC 2.68 M/mm3 (3.60-5.2); RDW 15.8 % (11.6-15.6); WHITE BLOOD COUNT 6.4 K/mm3 (4.0-10.0)
[2020-12-16 11:18] LABS: POTASSIUM 4.5 mmol/L (3.5-5.1)
[2020-12-16 11:24] LABS: CALCIUM 9.4 mg/dL (8.5-10.1)
[2020-12-16 11:25] LABS: ALBUMIN 3.2 g/dl (3.4-5.0); BLOOD UREA NITROGEN 48.9 mg/dL (7-18); MAGNESIUM 2.2 mg/dL (1.8-2.4)
[2020-12-16 11:28] LABS: CREATININE 2.4 mg/dL (0.55-1.3); PHOSPHOROUS 3.1 mg/dL (2.5-4.9)
[2020-12-16 11:29] LABS: BILIRUBIN,TOTAL 0.8 mg/dL (0.2-1)
[2020-12-16 11:30] LABS: TOT PROT 7.3 g/dl (6.4-8.2)
[2020-12-16 14:57] VITALS: BP 114/58; PULSE 66; TEMP 98.1
== END 2020-12-16 17:23 | disposition home or self-care (01) | DRG 291 ==
LOC: JER 07:32 → JERBED 10:49 → J4W 21:10
PROVIDERS: ADMIT Internal Medicine; ATTEND Student in an Organized Health Care Education/Training Program
DX: I13.0 Hypertensive heart and chronic kidney disease with heart failure and stage 1 through stage 4 chronic kidney disease, or unspecified chronic kidney disease (principal); I50.33 Acute on chronic diastolic (congestive) heart failure; J96.20 Acute and chronic respiratory failure, unspecified whether with hypoxia or hypercapnia; Z68.41 Body mass index [BMI] 40.0-44.9, adult; N17.9 Acute kidney failure, unspecified; I69.354 Hemiplegia and hemiparesis following cerebral infarction affecting left non-dominant side; E87.0 Hyperosmolality and hypernatremia; E66.01 Morbid (severe) obesity due to excess calories; N18.31 Chronic kidney disease, stage 3a; E78.5 Hyperlipidemia, unspecified; F03.90 Unspecified dementia, unspecified severity, without behavioral disturbance, psychotic disturbance, mood disturbance, and anxiety; G47.33 Obstructive sleep apnea (adult) (pediatric); I25.119 Atherosclerotic heart disease of native coronary artery with unspecified angina pectoris; J44.9 Chronic obstructive pulmonary disease, unspecified; D64.9 Anemia, unspecified
CPT/HCPCS: 36415; 71045-TC-FY; 76775-TC; 80053; 82465; 82550; 83735; 83880; 84100; 84484; 85025; 85610; 85730; 93005; 93010; 97116-GP; 97161-GP; 99285-25; C9803; U0003

== ENCOUNTER 2020-12-30 09:16 | Emergency (ER) | payer OTHER ==
[2020-12-30 09:25] VITALS: BP 165/74; PULSE 57; TEMP 97.7; BMI 42.3
[2020-12-30] MEDS ORDERED: ACETAMINOPHEN 500 MG TABLET (FP) PO ONE (09:54)
[2020-12-30] MEDS ORDERED: ACETAMINOPHEN 500 MG TABLET (FP) ONE (09:57)
[2020-12-30 10:53] LABS: BASO % 0.8 % (0-2.0); EOS % 2.9 % (0-4.5); HEMATOCRIT 26.9 % (32.4-45.2); HEMOGLOBIN 8.7 GM/dL (10.7-15.3); LYMPH % 26.8 % (8-40); MCHC 32.3 g/dl (32.0-36.0); MEAN CELL VOLUME 96.1 fl (80-96); MEAN PLT VOLUME 10.7 fl (7.5-11.1); MONO % 7.9 % (3.8-10.2); NEUT % 61.6 % (42.8-82.8); PLATELET COUNT 229 K/MM3 (134-434); RDW 16.6 % (11.6-15.6); WHITE BLOOD COUNT 6.5 K/mm3 (4.0-10.0)
[2020-12-30 11:46] LABS: POTASSIUM 4.7 mmol/L (3.5-5.1)
[2020-12-30 11:47] LABS: ALBUMIN 3.5 g/dl (3.4-5.0); BLOOD UREA NITROGEN 55.9 mg/dL (7-18); CALCIUM 9.8 mg/dL (8.5-10.1)
[2020-12-30 11:50] LABS: CREATININE 2.6 mg/dL (0.55-1.3)
[2020-12-30 11:52] LABS: BILIRUBIN,TOTAL 0.5 mg/dL (0.2-1); TOT PROT 7.6 g/dl (6.4-8.2)
== END 2020-12-30 12:23 | disposition home or self-care (01) ==
LOC: JERFT 09:16 → JER 09:16 → JERFT 12:23
DX: M79.89 Other specified soft tissue disorders (principal)
CPT/HCPCS: 36415; 73110-TC-LT-FY; 73130-TC-LT-FY; 80053; 85025; 99284-25

== ENCOUNTER 2021-02-26 14:26 | Inpatient (IN) | payer OTHER ==
[2021-02-26 15:24] VITALS: BMI 30.7
[2021-02-26] MEDS ORDERED: ACETAMINOPHEN 325 MG TABLET (FP) PO ONE (17:29)
[2021-02-26] MEDS ORDERED: ACETAMINOPHEN 325 MG TABLET (FP) ONE (17:35)
[2021-02-26] MEDS ORDERED: CYCLOBENZAPRINE HCL 5 MG TABLET PO ONE (19:05)
[2021-02-26] MEDS ORDERED: CYCLOBENZAPRINE HCL 10 MG TABLET (FP) ONE (19:22)
[2021-02-26] MEDS ORDERED: LIDOCAINE 5% TOPICAL PATCH TP ONE (20:58)
[2021-02-26] MEDS ORDERED: LIDOCAINE 5% TOPICAL PATCH ONE (21:16)
[2021-02-26] MEDS: LIDOCAINE PATCH REMOVAL MC SCH (21:33)
[2021-02-27 04:59] LABS: BASO % 0.8 % (0-2.0); EOS % 1.5 % (0-4.5); HEMATOCRIT 29.6 % (32.4-45.2); HEMOGLOBIN 9.9 GM/dL (10.7-15.3); LYMPH % 20.3 % (8-40); MCH 31.8 pg (25.7-33.7); MCHC 33.4 g/dl (32.0-36.0); MEAN CELL VOLUME 95.2 fl (80-96); MEAN PLT VOLUME 10.6 fl (7.5-11.1); NEUT % 70.4 % (42.8-82.8); PLATELET COUNT 218 K/MM3 (134-434); RBC 3.11 M/mm3 (3.60-5.2); RDW 15.3 % (11.6-15.6); WHITE BLOOD COUNT 7.3 K/mm3 (4.0-10.0)
[2021-02-27 05:06] LABS: N-TERMINAL BNP 9272.5 pg/ml (5-125)
[2021-02-27 05:13] LABS: ALBUMIN 3.2 g/dl (3.4-5.0); CALCIUM 9.3 mg/dL (8.5-10.1)
[2021-02-27 05:14] LABS: BLOOD UREA NITROGEN 27.4 mg/dL (7-18)
[2021-02-27 05:17] LABS: CREATININE 1.8 mg/dL (0.55-1.3)
[2021-02-27 05:18] LABS: BILIRUBIN,TOTAL 0.7 mg/dL (0.2-1); TOT PROT 7.4 g/dl (6.4-8.2)
[2021-02-27] MEDS ORDERED: ALBUTEROL SO4 2.5/IPRATROPIUM 0.5 INH SOL 3 ML VIAL.NEB. NEB PRN (06:15)
[2021-02-27] MEDS ORDERED: NITROGLYCERIN SUBLINGUAL 1/150 0.4 MG TAB ONE (07:42)
[2021-02-27] MEDS ORDERED: ASPIRIN 81 MG CHEWABLE TABLETS ONE (07:42)
[2021-02-27] MEDS ORDERED: FUROSEMIDE 40 MG TABLET (FP) ONE (09:30)
[2021-02-27] MEDS ORDERED: VALSARTAN 80 MG TABLET ONE (09:31)
[2021-02-27] MEDS ORDERED: CARVEDILOL 12.5 MG TABLET (FP) ONE (09:31)
[2021-02-27] MEDS ORDERED: APIXABAN 5 MG TABLET ONE (09:31)
[2021-02-27] MEDS ORDERED: DONEPEZIL HCL 5 MG TABLET (FP) ONE (09:32)
[2021-02-27] MEDS ORDERED: HEPARIN NA (PORCINE) 5,000 UNITS/ML 1ML VIAL SQ SCH (10:00)
[2021-02-27] MEDS ORDERED: ASPIRIN 81 MG CHEWABLE TABLETS PO SCH (10:00)
[2021-02-27] MEDS: FLUTICASONE/SALMETEROL 100 MCG/50 MCG DISKUS IH SCH ×2 (10:16→22:13)
[2021-02-27] MEDS: CARVEDILOL 12.5 MG TABLET (FP) PO SCH ×2 (10:16→21:52)
[2021-02-27] MEDS: RANOLAZINE E.R. 500 MG TABLET (FP) PO SCH ×2 (10:16→21:52)
[2021-02-27] MEDS: NIFEdipine E.R 60 MG TABLET PO SCH (10:16)
[2021-02-27] MEDS: ISOSORBIDE MONONITRATE 30 MG TAB.SR.24H (FP) PO SCH (10:16)
[2021-02-27] MEDS: APIXABAN 5 MG TABLET PO SCH ×2 (10:16→21:52)
[2021-02-27] MEDS: FUROSEMIDE 40 MG TABLET (FP) PO SCH (10:16)
[2021-02-27] MEDS: VALSARTAN 80 MG TABLET PO SCH (10:16)
[2021-02-27] MEDS ORDERED: ONDANSETRON 4 MG/2 ML VIAL IVPUSH PRN (11:14)
[2021-02-27] MEDS ORDERED: LORazepam 2 MG/ML SDV VIAL IVPUSH PRN (12:04)
[2021-02-27 13:07] LABS: N-TERMINAL BNP 11590.2 pg/ml (5-125)
[2021-02-27 18:21] LABS: PH,URINE 5.5 (5.0-8.0); URINE APPEARANCE CLEAR; URINE BILIRUBIN NEGATIVE (NEGATIVE); URINE COLOR YELLOW; URINE GLUCOSE (UA) NEGATIVE (NEGATIVE); URINE KETONE TRACE (NEGATIVE); URINE LEUK ESTERASE NEGATIVE (NEGATIVE); URINE NITRITE NEGATIVE (NEGATIVE); URINE PROTEIN NEGATIVE (NEGATIVE); URINE UROBILINOGEN 0.2 mg/dL (0.2-1.0)
[2021-02-27] MEDS ORDERED: ACETAMINOPHEN 325 MG TABLET (FP) PO PRN (18:46)
[2021-02-27] MEDS: DONEPEZIL HCL 10 MG TABLET (FP) PO SCH (21:51)
[2021-02-27] MEDS: ATORVASTATIN CA 80 MG TABLET (FP) PO SCH (21:52)
[2021-02-27] MEDS: LIDOCAINE PATCH REMOVAL MC SCH (22:27)
[2021-02-28] MEDS ORDERED: PT OWN MED DRAWER 7, Y5N ONE (09:05)
[2021-02-28 09:18] LABS: HEMATOCRIT 30.6 % (32.4-45.2); MCH 31.5 pg (25.7-33.7); MCHC 32.7 g/dl (32.0-36.0); MEAN CELL VOLUME 96.4 fl (80-96); MEAN PLT VOLUME 10.7 fl (7.5-11.1); PLATELET COUNT 202 K/MM3 (134-434); RBC 3.18 M/mm3 (3.60-5.2); RDW 15.8 % (11.6-15.6); WHITE BLOOD COUNT 5.6 K/mm3 (4.0-10.0)
[2021-02-28] MEDS: FLUTICASONE/SALMETEROL 100 MCG/50 MCG DISKUS IH SCH ×2 (09:45→21:41)
[2021-02-28] MEDS: CARVEDILOL 12.5 MG TABLET (FP) PO SCH ×2 (09:46→21:41)
[2021-02-28] MEDS: ISOSORBIDE MONONITRATE 30 MG TAB.SR.24H (FP) PO SCH (09:46)
[2021-02-28] MEDS: RANOLAZINE E.R. 500 MG TABLET (FP) PO SCH ×2 (09:46→21:42)
[2021-02-28] MEDS: APIXABAN 5 MG TABLET PO SCH ×2 (09:46→21:41)
[2021-02-28] MEDS: VALSARTAN 80 MG TABLET PO SCH (09:46)
[2021-02-28] MEDS: FUROSEMIDE 40 MG TABLET (FP) PO SCH (09:46)
[2021-02-28] MEDS: NIFEdipine E.R 60 MG TABLET PO SCH (09:46)
[2021-02-28 09:54] LABS: CALCIUM 9.4 mg/dL (8.5-10.1)
[2021-02-28 09:55] LABS: BLOOD UREA NITROGEN 22.9 mg/dL (7-18)
[2021-02-28 09:57] LABS: CREATININE 1.7 mg/dL (0.55-1.3)
[2021-02-28 09:58] LABS: PHOSPHOROUS 3.1 mg/dL (2.5-4.9)
[2021-02-28 09:59] LABS: BILIRUBIN,TOTAL 0.8 mg/dL (0.2-1); TOT PROT 7.1 g/dl (6.4-8.2)
[2021-02-28] MEDS: DONEPEZIL HCL 10 MG TABLET (FP) PO SCH (21:41)
[2021-02-28] MEDS: ATORVASTATIN CA 80 MG TABLET (FP) PO SCH (21:41)
[2021-02-28] MEDS: LIDOCAINE PATCH REMOVAL MC SCH (21:49)
[2021-03-01 08:29] LABS: BASO % 0.8 % (0-2.0); EOS % 5.1 % (0-4.5); HEMATOCRIT 29.4 % (32.4-45.2); HEMOGLOBIN 9.9 GM/dL (10.7-15.3); LYMPH % 25.6 % (8-40); MCH 32.1 pg (25.7-33.7); MCHC 33.5 g/dl (32.0-36.0); MEAN CELL VOLUME 95.8 fl (80-96); MEAN PLT VOLUME 9.8 fl (7.5-11.1); MONO % 10.1 % (3.8-10.2); NEUT % 58.4 % (42.8-82.8); PLATELET COUNT 195 K/MM3 (134-434); RBC 3.07 M/mm3 (3.60-5.2); RDW 15.5 % (11.6-15.6)
[2021-03-01 08:59] LABS: BLOOD UREA NITROGEN 27.6 mg/dL (7-18)
[2021-03-01 09:01] LABS: ALBUMIN 2.9 g/dl (3.4-5.0); CALCIUM 8.4 mg/dL (8.5-10.1)
[2021-03-01 09:02] LABS: MAGNESIUM 1.9 mg/dL (1.8-2.4)
[2021-03-01 09:04] LABS: CREATININE 2.1 mg/dL (0.55-1.3)
[2021-03-01 09:08] LABS: BILIRUBIN,TOTAL 0.6 mg/dL (0.2-1); TOT PROT 6.7 g/dl (6.4-8.2)
[2021-03-01] MEDS: FLUTICASONE/SALMETEROL 100 MCG/50 MCG DISKUS IH SCH (09:42)
[2021-03-01] MEDS: APIXABAN 5 MG TABLET PO SCH (09:43)
[2021-03-01] MEDS: ISOSORBIDE MONONITRATE 30 MG TAB.SR.24H (FP) PO SCH (09:43)
[2021-03-01] MEDS: FUROSEMIDE 40 MG TABLET (FP) PO SCH (09:43)
[2021-03-01] MEDS: CARVEDILOL 12.5 MG TABLET (FP) PO SCH (09:43)
[2021-03-01] MEDS: RANOLAZINE E.R. 500 MG TABLET (FP) PO SCH (09:43)
[2021-03-01] MEDS: VALSARTAN 80 MG TABLET PO SCH (09:43)
[2021-03-01] MEDS: NIFEdipine E.R 60 MG TABLET PO SCH (09:43)
[2021-03-01] MEDS ORDERED: MAG HYDROX/AL HYDROX/SIMETH 30 ML UNIT-DOSE CUP PO PRN (12:43)
[2021-03-01 15:24] VITALS: BP 100/61; PULSE 68; TEMP 98
== END 2021-03-01 17:49 | disposition home or self-care (01) | DRG 291 ==
LOC: JER 14:26 → JERBED 23:11 → J4W 02-27 12:31
PROVIDERS: ADMIT Hospitalist; ATTEND Nurse Practitioner Family
DX: I13.0 Hypertensive heart and chronic kidney disease with heart failure and stage 1 through stage 4 chronic kidney disease, or unspecified chronic kidney disease (principal); I50.33 Acute on chronic diastolic (congestive) heart failure; I69.354 Hemiplegia and hemiparesis following cerebral infarction affecting left non-dominant side; N17.9 Acute kidney failure, unspecified; I25.10 Atherosclerotic heart disease of native coronary artery without angina pectoris; I48.0 Paroxysmal atrial fibrillation; J44.9 Chronic obstructive pulmonary disease, unspecified; F03.90 Unspecified dementia, unspecified severity, without behavioral disturbance, psychotic disturbance, mood disturbance, and anxiety; N18.30 Chronic kidney disease, stage 3 unspecified; D50.9 Iron deficiency anemia, unspecified; D64.9 Anemia, unspecified; R94.31 Abnormal electrocardiogram [ECG] [EKG]; M25.559 Pain in unspecified hip; G47.33 Obstructive sleep apnea (adult) (pediatric); M10.9 Gout, unspecified; Z86.718 Personal history of other venous thrombosis and embolism; E66.8 Other obesity; Z68.30 Body mass index [BMI] 30.0-30.9, adult
CPT/HCPCS: 36415; 71045-TC-FY; 72192-TC; 73523-TC-FY; 80053; 81003; 82550; 83735; 83880; 84100; 84484; 85025; 85027; 87086; 93005; 93010; 93971-TC; 97116-GP; 97162-GP; 99285-25; C9803; U0003; U0005

== ENCOUNTER 2021-07-29 01:42 | Inpatient (IN) | payer OTHER ==
[2021-07-29] MEDS ORDERED: FUROSEMIDE 40 MG/4 ML INJECTABLE VIAL ONE ×2 (01:51→06:48)
[2021-07-29] MEDS ORDERED: methylPREDNISolone NA SUCC 125 MG/2 ML VIAL ONE (01:51)
[2021-07-29] MEDS ORDERED: ALBUTEROL SO4 2.5/IPRATROPIUM 0.5 INH SOL 3 ML VIAL.NEB. NEB ONE (01:54)
[2021-07-29] MEDS ORDERED: NITROGLYCERIN 2% OINTMENT - 1GM PACKET TD ONE ×2 (01:58→02:21)
[2021-07-29 02:13] LABS: BASO % 1.2 % (0-2.0); EOS % 4.3 % (0-4.5); HEMATOCRIT 23.2 % (32.4-45.2); HEMOGLOBIN 7.6 GM/dL (10.7-15.3); LYMPH % 30.7 % (8-40); MCH 31.6 pg (25.7-33.7); MCHC 32.8 g/dl (32.0-36.0); MEAN CELL VOLUME 96.4 fl (80-96); MEAN PLT VOLUME 10.2 fl (7.5-11.1); MONO % 5.9 % (3.8-10.2); NEUT % 57.9 % (42.8-82.8); PLATELET COUNT 187 10^3/uL (134-434); RBC 2.41 M/mm3 (3.60-5.2); RDW 17.4 % (11.6-15.6); WHITE BLOOD COUNT 6.4 K/mm3 (4.0-10.0)
[2021-07-29] MEDS ORDERED: FUROSEMIDE 40 MG/4 ML INJECTABLE VIAL IVPUSH ONE ×2 (02:21→06:19)
[2021-07-29] MEDS ORDERED: methylPREDNISolone NA SUCC 125 MG/2 ML VIAL IVPB ONE (02:22)
[2021-07-29] MEDS ORDERED: CEFTRIAXONE 1,000 MG in DEXTROSE 5%-WATER - 50 ML IVPB ONE (02:29)
[2021-07-29 02:30] LABS: INR 1.13 (0.83-1.09); PROTHROMBIN TIME (PATIENT) 13.2 SEC (9.7-13.0)
[2021-07-29 02:32] LABS: BLOOD UREA NITROGEN 75.7 mg/dL (7-18); CALCIUM 8.7 mg/dL (8.5-10.1)
[2021-07-29 02:33] LABS: ALBUMIN 3.2 g/dl (3.4-5.0)
[2021-07-29 02:35] LABS: CREATININE 3.6 mg/dL (0.55-1.3)
[2021-07-29 02:36] LABS: PHOSPHOROUS 3.5 mg/dL (2.5-4.9)
[2021-07-29 02:37] LABS: BILIRUBIN,TOTAL 0.4 mg/dL (0.2-1); TOT PROT 7.8 g/dl (6.4-8.2)
[2021-07-29 02:41] LABS: N-TERMINAL BNP 7292.6 pg/ml (5-125)
[2021-07-29] MEDS ORDERED: CEFTRIAXONE 1 GM/50 ML BAG ONE (02:45)
[2021-07-29 02:58] LABS: ARTERIAL BLD GAS O2 SATURATION 98.8 % (95-98); ARTERIAL BLOOD GAS BASE EXCESS -7.2 mmol/L (-2-2); ARTERIAL BLOOD GAS PO2 147.4 mmHg (80-100); ARTERIAL BLOOD GAS pH 7.329 (7.350-7.450)
[2021-07-29 03:00] LABS: VENT RATE 14
[2021-07-29] MEDS ORDERED: FUROSEMIDE 40 MG/4 ML INJECTABLE VIAL IVPUSH SCH (05:52)
[2021-07-29] MEDS ORDERED: AZITHROMYCIN IVPB 500 MG/250 ML BAG IVPB SCH (05:52)
[2021-07-29] MEDS ORDERED: LEVALBUTEROL HCL 0.63 MG/3 ML VIAL.NEB. IH SCH (06:00)
[2021-07-29] MEDS ORDERED: LEVALBUTEROL HCL 0.63 MG/3 ML VIAL.NEB. IH ONE (06:15)
[2021-07-29 06:30] LABS: URINE APPEARANCE CLEAR; URINE BILIRUBIN NEGATIVE (NEGATIVE); URINE COLOR YELLOW; URINE GLUCOSE (UA) NEGATIVE (NEGATIVE); URINE KETONE NEGATIVE (NEGATIVE); URINE LEUK ESTERASE NEGATIVE (NEGATIVE); URINE NITRITE NEGATIVE (NEGATIVE); URINE PROTEIN TRACE (NEGATIVE); URINE UROBILINOGEN 0.2 mg/dL (0.2-1.0)
[2021-07-29 06:33] LABS: BASO % 0.4 % (0-2.0); EOS % 0.7 % (0-4.5); HEMATOCRIT 22.5 % (32.4-45.2); HEMOGLOBIN 7.4 GM/dL (10.7-15.3); LYMPH % 10.5 % (8-40); MCH 31.8 pg (25.7-33.7); MCHC 32.8 g/dl (32.0-36.0); MEAN CELL VOLUME 96.9 fl (80-96); MEAN PLT VOLUME 10.6 fl (7.5-11.1); MONO % 1.8 % (3.8-10.2); NEUT % 86.6 % (42.8-82.8); PLATELET COUNT 191 10^3/uL (134-434); RBC 2.33 M/mm3 (3.60-5.2); RDW 17.1 % (11.6-15.6); WHITE BLOOD COUNT 8.2 K/mm3 (4.0-10.0)
[2021-07-29] MEDS ORDERED: AZITHROMYCIN IVPB 500 MG/250 ML BAG IVPB ONE (06:49)
[2021-07-29] MEDS ORDERED: ALBUTEROL SO4 2.5/IPRATROPIUM 0.5 INH SOL 3 ML VIAL.NEB. NEB SCH (07:00)
[2021-07-29 07:01] LABS: BLOOD UREA NITROGEN 78.2 mg/dL (7-18); CALCIUM 9.1 mg/dL (8.5-10.1)
[2021-07-29 07:02] LABS: ALBUMIN 3.5 g/dl (3.4-5.0); MAGNESIUM 1.8 mg/dL (1.8-2.4)
[2021-07-29 07:05] LABS: PHOSPHOROUS 3.6 mg/dL (2.5-4.9)
[2021-07-29 07:06] LABS: BILIRUBIN,TOTAL 0.3 mg/dL (0.2-1); TOT PROT 8.2 g/dl (6.4-8.2)
[2021-07-29 09:52] LABS: RETICULOCYTES 2.22 % (0.5-1.5)
[2021-07-29] MEDS ORDERED: POLYETHYLENE GLYCOL (HEALTHYLAX) 3350 17 GM PACKET PO SCH (10:00)
[2021-07-29] MEDS ORDERED: methylPREDNISolone NA SUCC 40 MG/1 ML VIAL ONE ×2 (10:59→17:47)
[2021-07-29] MEDS ORDERED: NIFEdipine E.R. 30 MG TABLET ONE (10:59)
[2021-07-29] MEDS ORDERED: CARVEDILOL 12.5 MG TABLET (FP) ONE (10:59)
[2021-07-29] MEDS ORDERED: POLYETHYLENE GLYCOL (HEALTHYLAX) 3350 17 GM PACKET ONE (11:36)
[2021-07-29] MEDS ORDERED: ISOSORBIDE MONONITRATE 60 MG TAB.SR.24H (FP) PO ONE (11:36)
[2021-07-29] MEDS: POLYETHYLENE GLYCOL (HEALTHYLAX) 3350 17 GM PACKET PO SCH (11:50)
[2021-07-29] MEDS: CARVEDILOL 12.5 MG TABLET (FP) PO SCH (11:50)
[2021-07-29] MEDS: ISOSORBIDE MONONITRATE 30 MG TAB.SR.24H (FP) PO SCH ×2 (11:51→12:06)
[2021-07-29] MEDS: NIFEdipine E.R 60 MG TABLET PO SCH (11:51)
[2021-07-29] MEDS: methylPREDNISolone NA SUCC 40 MG/1 ML VIAL IVPUSH SCH ×2 (11:51→17:55)
[2021-07-29] MEDS: BUDESONIDE/FORMETEROL FUMARATE 160/4.5 mcg INHALER IH SCH (11:55)
[2021-07-29] MEDS ORDERED: PT OWN MED DRAWER 7, Y5N ONE (12:04)
[2021-07-29] MEDS ORDERED: SODIUM ZIRCONIUM CYCLOSILICATE (LOKELMA) 5 GM PACKET ONE (17:47)
[2021-07-29] MEDS: SODIUM ZIRCONIUM CYCLOSILICATE (LOKELMA) 5 GM PACKET PO SCH (17:55)
[2021-07-30] MEDS: POLYETHYLENE GLYCOL (HEALTHYLAX) 3350 17 GM PACKET PO SCH ×3 (02:07→23:06)
[2021-07-30] MEDS: methylPREDNISolone NA SUCC 40 MG/1 ML VIAL IVPUSH SCH ×3 (02:07→18:01)
[2021-07-30] MEDS: ATORVASTATIN CA 80 MG TABLET (FP) PO SCH ×2 (02:10→23:06)
[2021-07-30] MEDS: DONEPEZIL HCL 10 MG TABLET (FP) PO SCH ×2 (02:10→23:07)
[2021-07-30] MEDS: CARVEDILOL 12.5 MG TABLET (FP) PO SCH ×3 (02:10→23:07)
[2021-07-30] MEDS: BUDESONIDE/FORMETEROL FUMARATE 160/4.5 mcg INHALER IH SCH ×3 (02:15→23:07)
[2021-07-30] MEDS: SODIUM ZIRCONIUM CYCLOSILICATE (LOKELMA) 5 GM PACKET PO SCH ×2 (03:50→09:35)
[2021-07-30] MEDS: FUROSEMIDE 40 MG/4 ML INJECTABLE VIAL IVPUSH SCH ×2 (05:26→17:05)
[2021-07-30 07:04] LABS: HEMATOCRIT 24.7 % (32.4-45.2); HEMOGLOBIN 8.3 GM/dL (10.7-15.3); MCH 31.1 pg (25.7-33.7); MCHC 33.6 g/dl (32.0-36.0); MEAN CELL VOLUME 92.6 fl (80-96); MEAN PLT VOLUME 10.6 fl (7.5-11.1); PLATELET COUNT 190 10^3/uL (134-434); RBC 2.67 M/mm3 (3.60-5.2); RDW 17.7 % (11.6-15.6); WHITE BLOOD COUNT 12.3 K/mm3 (4.0-10.0)
[2021-07-30 07:34] LABS: ALBUMIN 3.1 g/dl (3.4-5.0); BLOOD UREA NITROGEN 90.3 mg/dL (7-18); CALCIUM 9.1 mg/dL (8.5-10.1)
[2021-07-30 07:35] LABS: MAGNESIUM 1.7 mg/dL (1.8-2.4)
[2021-07-30 07:37] LABS: BILIRUBIN,TOTAL 0.3 mg/dL (0.2-1); TOT PROT 7.8 g/dl (6.4-8.2)
[2021-07-30 07:38] LABS: CREATININE 3.2 mg/dL (0.55-1.3); PHOSPHOROUS 3.9 mg/dL (2.5-4.9)
[2021-07-30] MEDS ORDERED: PT OWN MED DRAWER 7, Y5N ONE (09:11)
[2021-07-30] MEDS: ISOSORBIDE MONONITRATE 30 MG TAB.SR.24H (FP) PO SCH (09:34)
[2021-07-30] MEDS: NIFEdipine E.R 60 MG TABLET PO SCH (09:35)
[2021-07-30 09:41] LABS: ANISOCYTOSIS 1+; MACROCYTOSIS 0; PLATELET ESTIMATE NORMAL
[2021-07-30] MEDS ORDERED: MAGNESIUM OXIDE 400 MG TABLET (FP) PO ONE (15:17)
[2021-07-31] MEDS: methylPREDNISolone NA SUCC 40 MG/1 ML VIAL IVPUSH SCH ×2 (02:31→09:21)
[2021-07-31] MEDS: FUROSEMIDE 40 MG/4 ML INJECTABLE VIAL IVPUSH SCH ×2 (06:43→14:28)
[2021-07-31 07:00] LABS: HEMATOCRIT 24.1 % (32.4-45.2); HEMOGLOBIN 8.2 GM/dL (10.7-15.3); MCH 31.5 pg (25.7-33.7); MCHC 33.8 g/dl (32.0-36.0); MEAN CELL VOLUME 93.2 fl (80-96); MEAN PLT VOLUME 11.1 fl (7.5-11.1); PLATELET COUNT 187 10^3/uL (134-434); RBC 2.59 M/mm3 (3.60-5.2); RDW 17.4 % (11.6-15.6); WHITE BLOOD COUNT 14.3 K/mm3 (4.0-10.0)
[2021-07-31 08:00] LABS: CALCIUM 9.1 mg/dL (8.5-10.1)
[2021-07-31 08:01] LABS: ALBUMIN 2.9 g/dl (3.4-5.0); BLOOD UREA NITROGEN 103.4 mg/dL (7-18); MAGNESIUM 1.6 mg/dL (1.8-2.4)
[2021-07-31 08:03] LABS: CREATININE 3.1 mg/dL (0.55-1.3)
[2021-07-31 08:04] LABS: PHOSPHOROUS 4.1 mg/dL (2.5-4.9)
[2021-07-31 08:05] LABS: BILIRUBIN,TOTAL 0.4 mg/dL (0.2-1); TOT PROT 7.3 g/dl (6.4-8.2)
[2021-07-31] MEDS: BUDESONIDE/FORMETEROL FUMARATE 160/4.5 mcg INHALER IH SCH ×2 (09:19→21:23)
[2021-07-31] MEDS: NIFEdipine E.R 60 MG TABLET PO SCH (09:20)
[2021-07-31] MEDS: ISOSORBIDE MONONITRATE 30 MG TAB.SR.24H (FP) PO SCH (09:20)
[2021-07-31] MEDS: CARVEDILOL 12.5 MG TABLET (FP) PO SCH ×2 (09:20→21:24)
[2021-07-31] MEDS: POLYETHYLENE GLYCOL (HEALTHYLAX) 3350 17 GM PACKET PO SCH ×2 (09:21→21:24)
[2021-07-31 10:34] LABS: ANISOCYTOSIS 1+; MACROCYTOSIS 1+; OVALOCYTE 1+; PLATELET ESTIMATE NORMAL
[2021-07-31] MEDS ORDERED: MAGNESIUM 2GM/50ML STERILE WATER IVPB IVPB ONE (13:45)
[2021-07-31 14:43] VITALS: BMI 42.5
[2021-07-31] MEDS: ATORVASTATIN CA 80 MG TABLET (FP) PO SCH (21:24)
[2021-07-31] MEDS: DONEPEZIL HCL 10 MG TABLET (FP) PO SCH (21:24)
[2021-08-01] MEDS: FUROSEMIDE 40 MG/4 ML INJECTABLE VIAL IVPUSH SCH (05:26)
[2021-08-01 07:49] LABS: BASO % 0.4 % (0-2.0); HEMOGLOBIN 8.9 GM/dL (10.7-15.3); LYMPH % 10.7 % (8-40); MCH 30.9 pg (25.7-33.7); MEAN CELL VOLUME 93.6 fl (80-96); MEAN PLT VOLUME 11.2 fl (7.5-11.1); MONO % 4.6 % (3.8-10.2); NEUT % 84.3 % (42.8-82.8); PLATELET COUNT 218 10^3/uL (134-434); RBC 2.88 M/mm3 (3.60-5.2); RDW 17.6 % (11.6-15.6); WHITE BLOOD COUNT 12.2 K/mm3 (4.0-10.0)
[2021-08-01 08:08] LABS: CHLORIDE 107 mmol/L (98-107); SODIUM 139 mmol/L (136-145)
[2021-08-01 08:15] LABS: CALCIUM 9.5 mg/dL (8.5-10.1)
[2021-08-01 08:16] LABS: ANION GAP 11 MMOL/L (8-16); CO2 21 mmol/L (21-32); GLUCOSE,RANDOM 104 mg/dL (74-106); MAGNESIUM 2.2 mg/dL (1.8-2.4); PHOSPHOROUS 3.7 mg/dL (2.5-4.9)
[2021-08-01 08:17] LABS: BILIRUBIN,TOTAL 0.5 mg/dL (0.2-1)
[2021-08-01 08:18] LABS: TOT PROT 7.6 g/dl (6.4-8.2)
[2021-08-01 08:19] LABS: ALK PHOS 73 U/L (45-117); SGOT/AST 12 U/L (15-37); SGPT/ALT 17 U/L (13-61)
[2021-08-01 08:22] LABS: BLOOD UREA NITROGEN 110.8 mg/dL (7-18)
[2021-08-01] MEDS: BUDESONIDE/FORMETEROL FUMARATE 160/4.5 mcg INHALER IH SCH ×2 (09:17→21:33)
[2021-08-01] MEDS: CARVEDILOL 12.5 MG TABLET (FP) PO SCH (09:17)
[2021-08-01] MEDS: NIFEdipine E.R 60 MG TABLET PO SCH (09:17)
[2021-08-01] MEDS: ISOSORBIDE MONONITRATE 30 MG TAB.SR.24H (FP) PO SCH (09:17)
[2021-08-01] MEDS: POLYETHYLENE GLYCOL (HEALTHYLAX) 3350 17 GM PACKET PO SCH ×2 (09:20→21:33)
[2021-08-01] MEDS: FUROSEMIDE 40 MG TABLET (FP) PO SCH (13:33)
[2021-08-01] MEDS: CARVEDILOL 25 MG TABLET (FP) PO SCH ×2 (14:05→21:33)
[2021-08-01] MEDS: ATORVASTATIN CA 80 MG TABLET (FP) PO SCH (21:33)
[2021-08-01] MEDS: APIXABAN 5 MG TABLET PO SCH (21:33)
[2021-08-01] MEDS: DONEPEZIL HCL 10 MG TABLET (FP) PO SCH (21:33)
[2021-08-02] MEDS: FUROSEMIDE 40 MG TABLET (FP) PO SCH ×2 (06:22→14:44)
[2021-08-02 08:15] LABS: BASO % 0.2 % (0-2.0); EOS % 1.7 % (0-4.5); HEMATOCRIT 26.5 % (32.4-45.2); HEMOGLOBIN 8.9 GM/dL (10.7-15.3); MCHC 33.6 g/dl (32.0-36.0); MEAN CELL VOLUME 92.2 fl (80-96); MEAN PLT VOLUME 10.2 fl (7.5-11.1); MONO % 5.5 % (3.8-10.2); NEUT % 75.6 % (42.8-82.8); PLATELET COUNT 184 10^3/uL (134-434); RBC 2.87 M/mm3 (3.60-5.2); RDW 17.5 % (11.6-15.6); WHITE BLOOD COUNT 7.8 K/mm3 (4.0-10.0)
[2021-08-02 08:31] LABS: CHLORIDE 108 mmol/L (98-107); SODIUM 139 mmol/L (136-145)
[2021-08-02 08:42] LABS: ALBUMIN 2.7 g/dl (3.4-5.0); ANION GAP 9 MMOL/L (8-16); CALCIUM 8.5 mg/dL (8.5-10.1); CO2 22 mmol/L (21-32); MAGNESIUM 2.2 mg/dL (1.8-2.4)
[2021-08-02 08:43] LABS: GLUCOSE,RANDOM 86 mg/dL (74-106)
[2021-08-02 08:45] LABS: SGOT/AST 14 U/L (15-37); SGPT/ALT 20 U/L (13-61)
[2021-08-02 08:47] LABS: BILIRUBIN,TOTAL 0.6 mg/dL (0.2-1)
[2021-08-02 08:48] LABS: ALK PHOS 73 U/L (45-117)
[2021-08-02 08:49] LABS: BLOOD UREA NITROGEN 104.4 mg/dL (7-18)
[2021-08-02] MEDS: APIXABAN 5 MG TABLET PO SCH ×2 (09:23→21:43)
[2021-08-02] MEDS: ISOSORBIDE MONONITRATE 30 MG TAB.SR.24H (FP) PO SCH (09:23)
[2021-08-02] MEDS: NIFEdipine E.R 60 MG TABLET PO SCH (09:23)
[2021-08-02] MEDS: CARVEDILOL 25 MG TABLET (FP) PO SCH ×2 (09:23→21:43)
[2021-08-02] MEDS: BUDESONIDE/FORMETEROL FUMARATE 160/4.5 mcg INHALER IH SCH ×2 (09:24→21:46)
[2021-08-02] MEDS: POLYETHYLENE GLYCOL (HEALTHYLAX) 3350 17 GM PACKET PO SCH ×2 (09:28→21:42)
[2021-08-02] MEDS: DONEPEZIL HCL 10 MG TABLET (FP) PO SCH (21:43)
[2021-08-02] MEDS: ATORVASTATIN CA 80 MG TABLET (FP) PO SCH (21:43)
[2021-08-03] MEDS: FUROSEMIDE 40 MG TABLET (FP) PO SCH (06:31)
[2021-08-03 08:00] LABS: BASO % 0.2 % (0-2.0); EOS % 3.8 % (0-4.5); HEMATOCRIT 25.4 % (32.4-45.2); HEMOGLOBIN 8.4 GM/dL (10.7-15.3); LYMPH % 19.8 % (8-40); MCH 31.4 pg (25.7-33.7); MCHC 33.1 g/dl (32.0-36.0); MEAN CELL VOLUME 94.8 fl (80-96); MEAN PLT VOLUME 11.2 fl (7.5-11.1); MONO % 8.2 % (3.8-10.2); PLATELET COUNT 184 10^3/uL (134-434); RBC 2.68 M/mm3 (3.60-5.2); RDW 17.6 % (11.6-15.6); WHITE BLOOD COUNT 7.5 K/mm3 (4.0-10.0)
[2021-08-03 08:20] LABS: CHLORIDE 108 mmol/L (98-107); SODIUM 138 mmol/L (136-145)
[2021-08-03 08:26] LABS: CALCIUM 8.5 mg/dL (8.5-10.1)
[2021-08-03 08:27] LABS: ALBUMIN 2.6 g/dl (3.4-5.0); ANION GAP 11 MMOL/L (8-16); CO2 19 mmol/L (21-32); GLUCOSE,RANDOM 94 mg/dL (74-106)
[2021-08-03 08:28] LABS: SGOT/AST 17 U/L (15-37); SGPT/ALT 25 U/L (13-61)
[2021-08-03 08:30] LABS: BILIRUBIN,TOTAL 0.5 mg/dL (0.2-1); CREATININE 3.3 mg/dL (0.55-1.3); TOT PROT 6.6 g/dl (6.4-8.2)
[2021-08-03 08:31] LABS: ALK PHOS 72 U/L (45-117)
[2021-08-03 08:39] LABS: BLOOD UREA NITROGEN 110.4 mg/dL (7-18)
[2021-08-03 08:46] LABS: MAGNESIUM 2.2 mg/dL (1.8-2.4)
[2021-08-03 09:38] VITALS: BP 137/58; TEMP 98
[2021-08-03] MEDS: POLYETHYLENE GLYCOL (HEALTHYLAX) 3350 17 GM PACKET PO SCH (10:38)
[2021-08-03] MEDS: CARVEDILOL 25 MG TABLET (FP) PO SCH (10:38)
[2021-08-03] MEDS: BUDESONIDE/FORMETEROL FUMARATE 160/4.5 mcg INHALER IH SCH (10:38)
[2021-08-03] MEDS: NIFEdipine E.R 60 MG TABLET PO SCH (10:38)
[2021-08-03] MEDS: ISOSORBIDE MONONITRATE 30 MG TAB.SR.24H (FP) PO SCH (10:38)
[2021-08-03] MEDS: APIXABAN 5 MG TABLET PO SCH (10:38)
[2021-08-03 15:39] VITALS: PULSE 72
[2021-08-04] MEDS ORDERED: FUROSEMIDE 40 MG TABLET (FP) PO SCH (10:00)
== END 2021-08-03 16:47 | disposition home or self-care (01) | DRG 291 ==
LOC: JER 01:42 → JERBED 01:45 → J4W 07-30 00:07
PROVIDERS: ADMIT Internal Medicine
DX: I13.0 Hypertensive heart and chronic kidney disease with heart failure and stage 1 through stage 4 chronic kidney disease, or unspecified chronic kidney disease (principal); I50.33 Acute on chronic diastolic (congestive) heart failure; J96.21 Acute and chronic respiratory failure with hypoxia; J96.22 Acute and chronic respiratory failure with hypercapnia; N17.9 Acute kidney failure, unspecified; J44.1 Chronic obstructive pulmonary disease with (acute) exacerbation; Z68.41 Body mass index [BMI] 40.0-44.9, adult; I69.354 Hemiplegia and hemiparesis following cerebral infarction affecting left non-dominant side; E78.5 Hyperlipidemia, unspecified; Z99.81 Dependence on supplemental oxygen; I25.10 Atherosclerotic heart disease of native coronary artery without angina pectoris; F03.90 Unspecified dementia, unspecified severity, without behavioral disturbance, psychotic disturbance, mood disturbance, and anxiety; Z86.718 Personal history of other venous thrombosis and embolism; Z79.01 Long term (current) use of anticoagulants; E66.01 Morbid (severe) obesity due to excess calories; N18.32 Chronic kidney disease, stage 3b; D63.1 Anemia in chronic kidney disease; I16.0 Hypertensive urgency; I48.0 Paroxysmal atrial fibrillation; M10.9 Gout, unspecified
CPT/HCPCS: 36415; 36430; 36600; 71045-TC-FY; 80048; 80053; 81003; 82272; 82550; 82803; 83540; 83550; 83605; 83735; 83880; 84100; 84484; 85025; 85045; 85379; 85610; 85730; 86850; 86900; 86901; 86922; 87804; 87807; 93005; 93010; 93306-TC; 93970-TC; 94660; 97116-GP; 97162-GP; 99291; C9803; P9058; U0003; U0005

== ENCOUNTER 2021-08-16 15:07 | Inpatient (IN) | payer OTHER ==
[2021-08-16] MEDS ORDERED: FUROSEMIDE 40 MG/4 ML INJECTABLE VIAL IVPUSH ONE (15:18)
[2021-08-16] MEDS ORDERED: NITROGLYCERIN 25MG/D5W 250ML 25 MG/250 ML ML IVPB ONE (15:21)
[2021-08-16] MEDS ORDERED: ALBUTEROL SO4 2.5/IPRATROPIUM 0.5 INH SOL 3 ML VIAL.NEB. NEB ONE (15:21)
[2021-08-16] MEDS ORDERED: FUROSEMIDE 40 MG/4 ML INJECTABLE VIAL ONE (15:21)
[2021-08-16 15:54] LABS: VENOUS BASE EXCESS -3.7 mmol/L (-2-2); VENOUS O2 SATURATION 73.1 % (70-80); VENOUS PCO2 41.2 mmHg (38-52); VENOUS PH 7.34 (7.310-7.410)
[2021-08-16 16:06] LABS: BASO % 0.7 % (0-2.0); EOS % 2.1 % (0-4.5); HEMATOCRIT 22.9 % (32.4-45.2); HEMOGLOBIN 7.5 GM/dL (10.7-15.3); LYMPH % 10.4 % (8-40); MCH 31.1 pg (25.7-33.7); MCHC 32.5 g/dl (32.0-36.0); MEAN CELL VOLUME 95.6 fl (80-96); MEAN PLT VOLUME 10.4 fl (7.5-11.1); MONO % 3.5 % (3.8-10.2); NEUT % 83.3 % (42.8-82.8); PLATELET COUNT 202 10^3/uL (134-434); RDW 17.7 % (11.6-15.6); WHITE BLOOD COUNT 7.2 K/mm3 (4.0-10.0)
[2021-08-16 16:09] LABS: ALBUMIN 2.9 g/dl (3.4-5.0); CALCIUM 8.7 mg/dL (8.5-10.1)
[2021-08-16 16:13] LABS: CREATININE 2.5 mg/dL (0.55-1.3)
[2021-08-16 16:17] LABS: N-TERMINAL BNP 17721.2 pg/ml (5-125)
[2021-08-16 16:53] LABS: BLOOD UREA NITROGEN 42.2 mg/dL (7-18)
[2021-08-16] MEDS ORDERED: CARVEDILOL 12.5 MG TABLET (FP) ONE (22:00)
[2021-08-16] MEDS ORDERED: APIXABAN 5 MG TABLET ONE (22:00)
[2021-08-16] MEDS ORDERED: ATORVASTATIN CA 80 MG TABLET (FP) ONE (22:00)
[2021-08-16] MEDS ORDERED: DONEPEZIL HCL 5 MG TABLET (FP) ONE (22:01)
[2021-08-16] MEDS: ATORVASTATIN CA 80 MG TABLET (FP) PO SCH (22:06)
[2021-08-16] MEDS: DONEPEZIL HCL 10 MG TABLET (FP) PO SCH (22:06)
[2021-08-16] MEDS: APIXABAN 5 MG TABLET PO SCH (22:06)
[2021-08-16] MEDS: CARVEDILOL 25 MG TABLET (FP) PO SCH (22:06)
[2021-08-16] MEDS: RANOLAZINE E.R. 500 MG TABLET (FP) PO SCH (22:35)
[2021-08-17] MEDS ORDERED: FUROSEMIDE 40 MG/4 ML INJECTABLE VIAL ONE (10:21)
[2021-08-17] MEDS ORDERED: APIXABAN 5 MG TABLET ONE ×2 (10:21→22:02)
[2021-08-17] MEDS ORDERED: CARVEDILOL 12.5 MG TABLET (FP) ONE ×2 (10:21→22:02)
[2021-08-17] MEDS: APIXABAN 5 MG TABLET PO SCH ×2 (10:36→22:15)
[2021-08-17] MEDS: ALLOPURINOL 100 MG TABLET (FP) PO SCH (10:36)
[2021-08-17] MEDS: NIFEdipine E.R 60 MG TABLET PO SCH (10:36)
[2021-08-17] MEDS: CALCIUM 500MG/VIT-D 200 UNITS COMBO TABLET (FP) PO SCH (10:36)
[2021-08-17] MEDS: ISOSORBIDE MONONITRATE 30 MG TAB.SR.24H (FP) PO SCH (10:36)
[2021-08-17] MEDS: CARVEDILOL 25 MG TABLET (FP) PO SCH ×2 (10:36→22:15)
[2021-08-17] MEDS: RANOLAZINE E.R. 500 MG TABLET (FP) PO SCH ×2 (10:36→22:15)
[2021-08-17] MEDS: FUROSEMIDE 40 MG/4 ML INJECTABLE VIAL IVPUSH SCH (10:36)
[2021-08-17] MEDS ORDERED: DONEPEZIL HCL 5 MG TABLET (FP) ONE (22:03)
[2021-08-17] MEDS ORDERED: ATORVASTATIN CA 80 MG TABLET (FP) ONE (22:03)
[2021-08-17] MEDS: ATORVASTATIN CA 80 MG TABLET (FP) PO SCH (22:15)
[2021-08-17] MEDS: DONEPEZIL HCL 10 MG TABLET (FP) PO SCH (22:15)
[2021-08-18 08:54] LABS: HEMATOCRIT 21.6 % (32.4-45.2); HEMOGLOBIN 7.2 GM/dL (10.7-15.3); MCH 31.9 pg (25.7-33.7); MCHC 33.3 g/dl (32.0-36.0); MEAN CELL VOLUME 95.8 fl (80-96); MEAN PLT VOLUME 10.1 fl (7.5-11.1); PLATELET COUNT 202 10^3/uL (134-434); RBC 2.25 M/mm3 (3.60-5.2); RDW 18.1 % (11.6-15.6); WHITE BLOOD COUNT 7.7 K/mm3 (4.0-10.0)
[2021-08-18] MEDS: NIFEdipine E.R 60 MG TABLET PO SCH (09:14)
[2021-08-18] MEDS: APIXABAN 5 MG TABLET PO SCH ×2 (09:14→21:26)
[2021-08-18] MEDS: RANOLAZINE E.R. 500 MG TABLET (FP) PO SCH ×2 (09:14→21:26)
[2021-08-18] MEDS: FUROSEMIDE 40 MG/4 ML INJECTABLE VIAL IVPUSH SCH (09:14)
[2021-08-18] MEDS: CARVEDILOL 25 MG TABLET (FP) PO SCH ×2 (09:15→21:26)
[2021-08-18] MEDS: ALLOPURINOL 100 MG TABLET (FP) PO SCH (09:15)
[2021-08-18] MEDS: ISOSORBIDE MONONITRATE 30 MG TAB.SR.24H (FP) PO SCH (09:15)
[2021-08-18] MEDS: CALCIUM 500MG/VIT-D 200 UNITS COMBO TABLET (FP) PO SCH (09:15)
[2021-08-18 09:35] LABS: ALBUMIN 2.6 g/dl (3.4-5.0); BLOOD UREA NITROGEN 39.9 mg/dL (7-18); CALCIUM 9.2 mg/dL (8.5-10.1)
[2021-08-18 09:38] LABS: CREATININE 2.3 mg/dL (0.55-1.3)
[2021-08-18 09:40] LABS: BILIRUBIN,TOTAL 1.1 mg/dL (0.2-1)
[2021-08-18 09:41] LABS: TOT PROT 6.7 g/dl (6.4-8.2)
[2021-08-18 11:17] LABS: ARTERIAL BLD GAS O2 SATURATION 93.3 % (95-98); ARTERIAL BLOOD GAS BASE EXCESS -0.1 mmol/L (-2-2); ARTERIAL BLOOD GAS PO2 64.9 mmHg (80-100); ARTERIAL BLOOD GAS pH 7.427 (7.350-7.450)
[2021-08-18 11:22] LABS: VENT MODE S/T; VENT RATE 7
[2021-08-18] MEDS: ACETAMINOPHEN 325 MG TABLET (FP) PO PRN (16:11)
[2021-08-18] MEDS: DONEPEZIL HCL 10 MG TABLET (FP) PO SCH (21:26)
[2021-08-18] MEDS: ATORVASTATIN CA 80 MG TABLET (FP) PO SCH (21:26)
[2021-08-19 06:58] LABS: HEMATOCRIT 21.2 % (32.4-45.2); MCH 31.8 pg (25.7-33.7); MCHC 33.1 g/dl (32.0-36.0); MEAN CELL VOLUME 95.9 fl (80-96); MEAN PLT VOLUME 10.3 fl (7.5-11.1); PLATELET COUNT 201 10^3/uL (134-434); RBC 2.22 M/mm3 (3.60-5.2); RDW 18.1 % (11.6-15.6)
[2021-08-19 07:09] LABS: CALCIUM 8.9 mg/dL (8.5-10.1)
[2021-08-19 07:10] LABS: ALBUMIN 2.5 g/dl (3.4-5.0); BLOOD UREA NITROGEN 48.8 mg/dL (7-18)
[2021-08-19 07:15] LABS: BILIRUBIN,TOTAL 1.1 mg/dL (0.2-1); TOT PROT 6.5 g/dl (6.4-8.2)
[2021-08-19] MEDS ORDERED: POTASSIUM CHLORIDE TABS 20 MEQ TABLET.ER (FP) PO ONE (08:30)
[2021-08-19] MEDS ORDERED: PT OWN MED DRAWER 7, Y5N ONE (08:37)
[2021-08-19] MEDS: ISOSORBIDE MONONITRATE 30 MG TAB.SR.24H (FP) PO SCH (10:05)
[2021-08-19] MEDS: ALLOPURINOL 100 MG TABLET (FP) PO SCH (10:05)
[2021-08-19] MEDS: FUROSEMIDE 40 MG/4 ML INJECTABLE VIAL IVPUSH SCH (10:05)
[2021-08-19] MEDS: CALCIUM 500MG/VIT-D 200 UNITS COMBO TABLET (FP) PO SCH (10:05)
[2021-08-19] MEDS: NIFEdipine E.R 60 MG TABLET PO SCH (10:05)
[2021-08-19] MEDS: RANOLAZINE E.R. 500 MG TABLET (FP) PO SCH ×2 (10:05→21:31)
[2021-08-19] MEDS: APIXABAN 5 MG TABLET PO SCH ×2 (10:05→21:31)
[2021-08-19] MEDS: CARVEDILOL 25 MG TABLET (FP) PO SCH ×2 (10:06→21:31)
[2021-08-19] MEDS ORDERED: FUROSEMIDE 40 MG/4 ML INJECTABLE VIAL IVPUSH ONE (14:00)
[2021-08-19] MEDS: ACETAMINOPHEN 325 MG TABLET (FP) PO PRN ×2 (16:45→22:57)
[2021-08-19] MEDS: DONEPEZIL HCL 10 MG TABLET (FP) PO SCH (21:31)
[2021-08-19] MEDS: ATORVASTATIN CA 80 MG TABLET (FP) PO SCH (21:31)
[2021-08-20] MEDS ORDERED: MELATONIN 5 MG TABLETS PO ONE ×2 (00:42→01:00)
[2021-08-20 07:00] LABS: BASO % 0.6 % (0-2.0); EOS % 1.8 % (0-4.5); HEMATOCRIT 23.3 % (32.4-45.2); HEMOGLOBIN 7.8 GM/dL (10.7-15.3); LYMPH % 9.7 % (8-40); MCH 31.4 pg (25.7-33.7); MCHC 33.6 g/dl (32.0-36.0); MEAN CELL VOLUME 93.5 fl (80-96); MEAN PLT VOLUME 10.1 fl (7.5-11.1); MONO % 5.8 % (3.8-10.2); NEUT % 82.1 % (42.8-82.8); PLATELET COUNT 213 10^3/uL (134-434); RBC 2.49 M/mm3 (3.60-5.2); RDW 17.7 % (11.6-15.6); WHITE BLOOD COUNT 7.9 K/mm3 (4.0-10.0)
[2021-08-20 07:26] LABS: ALBUMIN 2.4 g/dl (3.4-5.0); BLOOD UREA NITROGEN 59.8 mg/dL (7-18)
[2021-08-20 07:29] LABS: CREATININE 4.2 mg/dL (0.55-1.3)
[2021-08-20 07:30] LABS: BILIRUBIN,TOTAL 1.3 mg/dL (0.2-1); TOT PROT 6.5 g/dl (6.4-8.2)
[2021-08-20] MEDS ORDERED: methylPREDNISolone NA SUCC 125 MG/2 ML VIAL IVPUSH ONE (09:28)
[2021-08-20] MEDS ORDERED: FUROSEMIDE 40 MG/4 ML INJECTABLE VIAL IVPUSH STA (09:57)
[2021-08-20] MEDS: CALCIUM 500MG/VIT-D 200 UNITS COMBO TABLET (FP) PO SCH (10:06)
[2021-08-20] MEDS: ALLOPURINOL 100 MG TABLET (FP) PO SCH (10:06)
[2021-08-20] MEDS: CARVEDILOL 25 MG TABLET (FP) PO SCH ×2 (10:06→21:35)
[2021-08-20] MEDS: RANOLAZINE E.R. 500 MG TABLET (FP) PO SCH ×2 (10:06→21:35)
[2021-08-20] MEDS: ISOSORBIDE MONONITRATE 30 MG TAB.SR.24H (FP) PO SCH (10:06)
[2021-08-20] MEDS: APIXABAN 5 MG TABLET PO SCH ×2 (10:06→21:35)
[2021-08-20] MEDS: NIFEdipine E.R 60 MG TABLET PO SCH (10:06)
[2021-08-20] MEDS ORDERED: methylPREDNISolone NA SUCC 125 MG/2 ML VIAL ONE (10:09)
[2021-08-20] MEDS ORDERED: FUROSEMIDE 40 MG/4 ML INJECTABLE VIAL IVPUSH ONE (10:29)
[2021-08-20] MEDS ORDERED: FUROSEMIDE 40 MG/4 ML INJECTABLE VIAL ONE (10:42)
[2021-08-20] MEDS ORDERED: PT OWN MED DRAWER 7, Y5N ONE ×2 (10:43→12:43)
[2021-08-20 11:51] LABS: ALLENS TEST POSITIVE; ARTERIAL BLD GAS O2 SATURATION 88.8 % (95-98); ARTERIAL BLOOD GAS BASE EXCESS -2.3 mmol/L (-2-2); ARTERIAL BLOOD GAS PO2 54.1 mmHg (80-100); ARTERIAL BLOOD GAS pH 7.412 (7.350-7.450)
[2021-08-20 11:52] LABS: VENT MODE S/T
[2021-08-20 11:53] LABS: VENT RATE 7
[2021-08-20] MEDS: FUROSEMIDE 40 MG/4 ML INJECTABLE VIAL IVPUSH SCH (15:30)
[2021-08-20] MEDS: ATORVASTATIN CA 80 MG TABLET (FP) PO SCH (21:35)
[2021-08-20] MEDS: DONEPEZIL HCL 10 MG TABLET (FP) PO SCH (21:35)
[2021-08-21] MEDS: FUROSEMIDE 40 MG/4 ML INJECTABLE VIAL IVPUSH SCH ×2 (06:00→13:40)
[2021-08-21 08:10] LABS: HEMATOCRIT 23.8 % (32.4-45.2); HEMOGLOBIN 8.2 GM/dL (10.7-15.3); MCHC 34.5 g/dl (32.0-36.0); MEAN CELL VOLUME 92.8 fl (80-96); MEAN PLT VOLUME 10.1 fl (7.5-11.1); PLATELET COUNT 230 10^3/uL (134-434); RBC 2.57 M/mm3 (3.60-5.2); WHITE BLOOD COUNT 10.1 K/mm3 (4.0-10.0)
[2021-08-21 08:31] LABS: CALCIUM 8.8 mg/dL (8.5-10.1)
[2021-08-21 08:32] LABS: ALBUMIN 2.5 g/dl (3.4-5.0); BLOOD UREA NITROGEN 78.2 mg/dL (7-18)
[2021-08-21 08:35] LABS: CREATININE 4.4 mg/dL (0.55-1.3)
[2021-08-21 08:36] LABS: BILIRUBIN,TOTAL 0.9 mg/dL (0.2-1)
[2021-08-21 08:37] LABS: TOT PROT 6.8 g/dl (6.4-8.2)
[2021-08-21 09:00] LABS: ANISOCYTOSIS 0; HELMET CELLS 0; HOWELL-JOLLY BODIES 0; MACROCYTOSIS 0; OVALOCYTE 0; PLATELET ESTIMATE NORMAL; ROULEAU 0; SICKELED CELLS 0; TARGET CELLS 0; TEAR DROP CELLS 0; TOXIC GRANULATION 0
[2021-08-21] MEDS: CALCIUM 500MG/VIT-D 200 UNITS COMBO TABLET (FP) PO SCH (09:41)
[2021-08-21] MEDS: RANOLAZINE E.R. 500 MG TABLET (FP) PO SCH ×2 (09:41→21:24)
[2021-08-21] MEDS: ISOSORBIDE MONONITRATE 30 MG TAB.SR.24H (FP) PO SCH (09:41)
[2021-08-21] MEDS: ALLOPURINOL 100 MG TABLET (FP) PO SCH (09:41)
[2021-08-21] MEDS: APIXABAN 5 MG TABLET PO SCH ×2 (09:42→21:23)
[2021-08-21] MEDS: NIFEdipine E.R 60 MG TABLET PO SCH (09:42)
[2021-08-21] MEDS: CARVEDILOL 25 MG TABLET (FP) PO SCH ×2 (09:42→21:24)
[2021-08-21 13:20] LABS: ARTERIAL BLD GAS O2 SATURATION 97.7 % (95-98); ARTERIAL BLOOD GAS BASE EXCESS -2.8 mmol/L (-2-2); ARTERIAL BLOOD GAS pH 7.345 (7.350-7.450)
[2021-08-21 13:21] LABS: VENT MODE ST
[2021-08-21 13:22] LABS: VENT RATE 12
[2021-08-21] MEDS: AMINO ACIDS 4.25%/D5W 1,000 ML IV SCH (13:40)
[2021-08-21] MEDS ORDERED: FUROSEMIDE INJECTION 100 MG in DEXTROSE 5%-WATER - 90 ML IVPB SCH (14:15)
[2021-08-21] MEDS: DONEPEZIL HCL 10 MG TABLET (FP) PO SCH (21:23)
[2021-08-21] MEDS: ATORVASTATIN CA 80 MG TABLET (FP) PO SCH (21:24)
[2021-08-21] MEDS: ACETAMINOPHEN 325 MG TABLET (FP) PO PRN (21:28)
[2021-08-22 01:01] LABS: ARTERIAL BLD GAS O2 SATURATION 89.3 % (95-98); ARTERIAL BLOOD GAS BASE EXCESS -1.4 mmol/L (-2-2); ARTERIAL BLOOD GAS PO2 57.6 mmHg (80-100); ARTERIAL BLOOD GAS pH 7.373 (7.350-7.450)
[2021-08-22 01:03] LABS: ALLENS TEST POSITIVE
[2021-08-22 01:04] LABS: VENT RATE 12
[2021-08-22] MEDS: FUROSEMIDE INJECTION 100 MG in DEXTROSE 5%-WATER - 90 ML IVPB SCH ×2 (01:56→09:51)
[2021-08-22] MEDS: ACETAMINOPHEN 325 MG TABLET (FP) PO PRN ×2 (02:34→18:50)
[2021-08-22] MEDS ORDERED: morphine SULFATE 4 MG/ML VIAL IVPUSH ONE ×2 (03:51→04:22)
[2021-08-22 07:26] LABS: BASO % 0.4 % (0-2.0); HEMATOCRIT 22.8 % (32.4-45.2); HEMOGLOBIN 7.7 GM/dL (10.7-15.3); LYMPH % 6.1 % (8-40); MCH 31.7 pg (25.7-33.7); MEAN CELL VOLUME 93.4 fl (80-96); MEAN PLT VOLUME 10.1 fl (7.5-11.1); MONO % 5.8 % (3.8-10.2); NEUT % 87.7 % (42.8-82.8); PLATELET COUNT 238 10^3/uL (134-434); RBC 2.44 M/mm3 (3.60-5.2); RDW 17.1 % (11.6-15.6); WHITE BLOOD COUNT 9.4 K/mm3 (4.0-10.0)
[2021-08-22 07:57] LABS: CALCIUM 8.6 mg/dL (8.5-10.1)
[2021-08-22] MEDS ORDERED: SODIUM CHLORIDE 250 ML IV PRN (07:57)
[2021-08-22 07:58] LABS: ALBUMIN 2.3 g/dl (3.4-5.0); BLOOD UREA NITROGEN 99.8 mg/dL (7-18)
[2021-08-22 08:02] LABS: BILIRUBIN,TOTAL 0.8 mg/dL (0.2-1)
[2021-08-22 08:03] LABS: TOT PROT 6.5 g/dl (6.4-8.2)
[2021-08-22] MEDS: ALLOPURINOL 100 MG TABLET (FP) PO SCH (09:27)
[2021-08-22] MEDS: CARVEDILOL 25 MG TABLET (FP) PO SCH ×2 (09:27→21:37)
[2021-08-22] MEDS: CALCIUM 500MG/VIT-D 200 UNITS COMBO TABLET (FP) PO SCH (09:27)
[2021-08-22] MEDS: NIFEdipine E.R 60 MG TABLET PO SCH (09:27)
[2021-08-22] MEDS: ISOSORBIDE MONONITRATE 30 MG TAB.SR.24H (FP) PO SCH (09:27)
[2021-08-22] MEDS: APIXABAN 5 MG TABLET PO SCH ×2 (09:27→21:37)
[2021-08-22] MEDS: RANOLAZINE E.R. 500 MG TABLET (FP) PO SCH ×2 (09:27→21:37)
[2021-08-22] MEDS: AMINO ACIDS 4.25%/D5W 1,000 ML IV SCH (17:22)
[2021-08-22] MEDS: ATORVASTATIN CA 80 MG TABLET (FP) PO SCH (21:37)
[2021-08-22] MEDS: DONEPEZIL HCL 10 MG TABLET (FP) PO SCH (21:37)
[2021-08-22] MEDS ORDERED: MELATONIN 5 MG TABLETS PO ONE (21:57)
[2021-08-23] MEDS ORDERED: morphine SULFATE 4 MG/ML VIAL IVPUSH ONE (05:36)
[2021-08-23] MEDS: FUROSEMIDE INJECTION 100 MG in DEXTROSE 5%-WATER - 90 ML IVPB SCH ×2 (05:44→18:31)
[2021-08-23 08:09] LABS: BASO % 0.2 % (0-2.0); EOS % 1.6 % (0-4.5); HEMATOCRIT 22.1 % (32.4-45.2); HEMOGLOBIN 7.4 GM/dL (10.7-15.3); LYMPH % 5.5 % (8-40); MCH 31.4 pg (25.7-33.7); MCHC 33.4 g/dl (32.0-36.0); MEAN CELL VOLUME 93.8 fl (80-96); MONO % 7.9 % (3.8-10.2); NEUT % 84.8 % (42.8-82.8); PLATELET COUNT 209 10^3/uL (134-434); RBC 2.36 M/mm3 (3.60-5.2); RDW 17.2 % (11.6-15.6); WHITE BLOOD COUNT 7.4 K/mm3 (4.0-10.0)
[2021-08-23 08:31] LABS: BLOOD UREA NITROGEN 81.8 mg/dL (7-18)
[2021-08-23 08:34] LABS: CREATININE 3.8 mg/dL (0.55-1.3)
[2021-08-23 08:36] LABS: TOT PROT 5.7 g/dl (6.4-8.2)
[2021-08-23] MEDS ORDERED: RAPID SEQUENCE INTUBATION KIT NR ONE (09:46)
[2021-08-23] MEDS ORDERED: NOREPINEPHRINE BITARTRATE 4 MG/4 ML ML IV ONE (09:51)
[2021-08-23] MEDS ORDERED: ETOMIDATE 40 MG/20 ML VIAL IVPUSH ONE (10:04)
[2021-08-23] MEDS ORDERED: ETOMIDATE 20 MG/10 ML AMPUL IVPUSH ONE (10:11)
[2021-08-23] MEDS ORDERED: ROCURONIUM BROMIDE 50 MG/5 ML SYRINGE IVPUSH ONE (10:36)
[2021-08-23] MEDS ORDERED: ALBUTEROL SO4 2.5/IPRATROPIUM 0.5 INH SOL 3 ML VIAL.NEB. NEB PRN (10:37)
[2021-08-23] MEDS: PROPOFOL 1,000,000 MCG/100 ML VIAL IVPB SCH ×2 (10:39→17:32)
[2021-08-23] MEDS ORDERED: SODIUM CHLORIDE 250 ML IV PRN (11:46)
[2021-08-23] MEDS: FENTANYL IVPB 500 MCG/100 ML BAG IVPB SCH ×3 (11:50→17:32)
[2021-08-23] MEDS ORDERED: FENTANYL IVPB 500 MCG/100 ML BAG IVPB ONE (11:51)
[2021-08-23 12:24] LABS: ARTERIAL BLD GAS O2 SATURATION 83.9 % (95-98); ARTERIAL BLOOD GAS BASE EXCESS -1.5 mmol/L (-2-2); ARTERIAL BLOOD GAS pH 7.257 (7.350-7.450)
[2021-08-23 12:25] LABS: ALLENS TEST POSITIVE
[2021-08-23 12:26] LABS: VENT RATE 20
[2021-08-23] MEDS ORDERED: methylPREDNISolone NA SUCC 125 MG/2 ML VIAL IVPUSH ONE (12:45)
[2021-08-23] MEDS: NOREPINEPHRINE BITARTRATE 16,000 MCG in SODIUM CHLORIDE 484 ML IV SCH (13:47)
[2021-08-23] MEDS: APIXABAN 5 MG TABLET PO SCH (14:22)
[2021-08-23] MEDS: RANOLAZINE E.R. 500 MG TABLET (FP) PO SCH ×2 (14:23→21:34)
[2021-08-23] MEDS: CALCIUM 500MG/VIT-D 200 UNITS COMBO TABLET (FP) PO SCH (14:23)
[2021-08-23] MEDS: ALLOPURINOL 100 MG TABLET (FP) PO SCH (14:23)
[2021-08-23] MEDS: MUPIROCIN 2% TOPICAL OINTMENT FOR DECOLONIZATION NS SCH ×2 (17:10→21:34)
[2021-08-23] MEDS ORDERED: METOPROLOL TARTRATE 5 MG/5 ML VIAL IVPUSH ONE (19:02)
[2021-08-23] MEDS: ATORVASTATIN CA 80 MG TABLET (FP) PO SCH (21:33)
[2021-08-23] MEDS: PANTOPRAZOLE SODIUM 40 MG VIAL IVPUSH SCH (21:33)
[2021-08-23] MEDS: DONEPEZIL HCL 10 MG TABLET (FP) PO SCH (21:33)
[2021-08-23] MEDS: CHLORHEXIDINE GLUCONATE 4% CLEANSER FOR DECOLONIZATION TP SCH (21:34)
[2021-08-24] MEDS: FENTANYL IVPB 500 MCG/100 ML BAG IVPB SCH ×5 (03:04→19:10)
[2021-08-24] MEDS: PROPOFOL 1,000,000 MCG/100 ML VIAL IVPB SCH ×6 (03:10→22:15)
[2021-08-24] MEDS ORDERED: PT OWN MED DRAWER 7, Y5N ONE ×2 (03:37→09:08)
[2021-08-24] MEDS: FUROSEMIDE INJECTION 100 MG in DEXTROSE 5%-WATER - 90 ML IVPB SCH (04:05)
[2021-08-24 06:09] LABS: ARTERIAL BLD GAS O2 SATURATION 96.1 % (95-98); ARTERIAL BLOOD GAS BASE EXCESS 2.1 mmol/L (-2-2); ARTERIAL BLOOD GAS PO2 76.4 mmHg (80-100); ARTERIAL BLOOD GAS pH 7.474 (7.350-7.450)
[2021-08-24 06:24] LABS: ALLENS TEST POSITIVE
[2021-08-24 06:25] LABS: VENT MODE A/C; VENT RATE 24
[2021-08-24 07:24] LABS: BASO % 0.4 % (0-2.0); HEMATOCRIT 23.1 % (32.4-45.2); HEMOGLOBIN 7.6 GM/dL (10.7-15.3); LYMPH % 5.9 % (8-40); MCH 30.9 pg (25.7-33.7); MCHC 33.1 g/dl (32.0-36.0); MEAN CELL VOLUME 93.4 fl (80-96); MEAN PLT VOLUME 10.3 fl (7.5-11.1); MONO % 3.8 % (3.8-10.2); NEUT % 89.9 % (42.8-82.8); PLATELET COUNT 228 10^3/uL (134-434); RBC 2.48 M/mm3 (3.60-5.2); RDW 17.4 % (11.6-15.6); WHITE BLOOD COUNT 8.7 K/mm3 (4.0-10.0)
[2021-08-24 07:30] LABS: INR 1.76 (0.83-1.09); PROTHROMBIN TIME (PATIENT) 19.8 SEC (9.7-13.0)
[2021-08-24 07:44] LABS: CALCIUM 8.6 mg/dL (8.5-10.1)
[2021-08-24 07:45] LABS: MAGNESIUM 2.1 mg/dL (1.8-2.4)
[2021-08-24 07:47] LABS: PHOSPHOROUS 4.8 mg/dL (2.5-4.9)
[2021-08-24 07:48] LABS: CREATININE 3.7 mg/dL (0.55-1.3)
[2021-08-24 07:49] LABS: BILIRUBIN,TOTAL 0.9 mg/dL (0.2-1)
[2021-08-24] MEDS ORDERED: SODIUM CHLORIDE 250 ML IV PRN (08:36)
[2021-08-24] MEDS: ALLOPURINOL 100 MG TABLET (FP) PO SCH (09:09)
[2021-08-24] MEDS: PANTOPRAZOLE SODIUM 40 MG VIAL IVPUSH SCH (09:09)
[2021-08-24] MEDS: RANOLAZINE E.R. 500 MG TABLET (FP) PO SCH ×2 (09:09→21:49)
[2021-08-24] MEDS: APIXABAN 5 MG TABLET PO SCH ×2 (09:09→21:26)
[2021-08-24] MEDS: CALCIUM 500MG/VIT-D 200 UNITS COMBO TABLET (FP) PO SCH (09:09)
[2021-08-24] MEDS: MUPIROCIN 2% TOPICAL OINTMENT FOR DECOLONIZATION NS SCH ×2 (09:10→21:48)
[2021-08-24 16:15] VITALS: BMI 40.2
[2021-08-24 18:35] LABS: HEMATOCRIT 25.9 % (32.4-45.2); HEMOGLOBIN 8.7 GM/dL (10.7-15.3); MCH 31.2 pg (25.7-33.7); MCHC 33.7 g/dl (32.0-36.0); MEAN CELL VOLUME 92.8 fl (80-96); MEAN PLT VOLUME 10.1 fl (7.5-11.1); PLATELET COUNT 234 10^3/uL (134-434); RBC 2.79 M/mm3 (3.60-5.2); WHITE BLOOD COUNT 10.5 K/mm3 (4.0-10.0)
[2021-08-24] MEDS: DONEPEZIL HCL 10 MG TABLET (FP) PO SCH (21:26)
[2021-08-24] MEDS: ATORVASTATIN CA 80 MG TABLET (FP) PO SCH (21:27)
[2021-08-24] MEDS: FUROSEMIDE 100 MG/10 ML INJECTABLE VIAL IVPB SCH (21:27)
[2021-08-24] MEDS: CHLORHEXIDINE GLUCONATE 4% CLEANSER FOR DECOLONIZATION TP SCH (21:48)
[2021-08-24 21:56] LABS: ANISOCYTOSIS 1+; MACROCYTOSIS 1+
[2021-08-24 21:57] LABS: OVALOCYTE 1+
[2021-08-25] MEDS: FENTANYL IVPB 500 MCG/100 ML BAG IVPB SCH ×3 (03:40→13:06)
[2021-08-25] MEDS: FUROSEMIDE 100 MG/10 ML INJECTABLE VIAL IVPB SCH ×3 (05:19→21:52)
[2021-08-25] MEDS: PROPOFOL 1,000,000 MCG/100 ML VIAL IVPB SCH ×5 (05:19→17:27)
[2021-08-25 06:39] LABS: BASO % 0.4 % (0-2.0); EOS % 0.1 % (0-4.5); HEMATOCRIT 26.8 % (32.4-45.2); HEMOGLOBIN 8.9 GM/dL (10.7-15.3); LYMPH % 4.9 % (8-40); MCH 31.1 pg (25.7-33.7); MCHC 33.4 g/dl (32.0-36.0); MEAN CELL VOLUME 93.1 fl (80-96); MEAN PLT VOLUME 10.3 fl (7.5-11.1); MONO % 9.2 % (3.8-10.2); NEUT % 85.4 % (42.8-82.8); PLATELET COUNT 239 10^3/uL (134-434); RBC 2.88 M/mm3 (3.60-5.2); RDW 17.2 % (11.6-15.6); WHITE BLOOD COUNT 12.1 K/mm3 (4.0-10.0)
[2021-08-25 07:36] LABS: CREATININE 3.8 mg/dL (0.55-1.3)
[2021-08-25 07:37] LABS: CALCIUM 8.3 mg/dL (8.5-10.1)
[2021-08-25] MEDS ORDERED: METOPROLOL TARTRATE 5 MG/5 ML VIAL IVPUSH ONE ×2 (08:30→09:36)
[2021-08-25] MEDS ORDERED: PT OWN MED DRAWER 7, Y5N ONE (09:30)
[2021-08-25] MEDS: PANTOPRAZOLE SODIUM 40 MG VIAL IVPUSH SCH (09:44)
[2021-08-25] MEDS: RANOLAZINE E.R. 500 MG TABLET (FP) PO SCH ×3 (09:44→21:54)
[2021-08-25] MEDS: APIXABAN 5 MG TABLET PO SCH ×2 (09:45→21:52)
[2021-08-25] MEDS: CALCIUM 500MG/VIT-D 200 UNITS COMBO TABLET (FP) PO SCH (09:45)
[2021-08-25] MEDS: ALLOPURINOL 100 MG TABLET (FP) PO SCH (09:45)
[2021-08-25] MEDS: MUPIROCIN 2% TOPICAL OINTMENT FOR DECOLONIZATION NS SCH ×2 (10:55→21:52)
[2021-08-25] MEDS: NOREPINEPHRINE BITARTRATE 16,000 MCG in SODIUM CHLORIDE 484 ML IV SCH ×2 (10:56→17:22)
[2021-08-25] MEDS ORDERED: METOPROLOL TARTRATE 5 MG/5 ML VIAL IVPUSH PRN (11:35)
[2021-08-25 12:07] LABS: ANTIGLOMERULAR BASEMENT MEN.AB 3 units (0-20)
[2021-08-25] MEDS: AMINO ACIDS/PROTEIN HYDROLYS 30 ML LIQUID.PKT PO SCH (17:27)
[2021-08-25] MEDS: DONEPEZIL HCL 10 MG TABLET (FP) PO SCH (21:51)
[2021-08-25] MEDS: CHLORHEXIDINE GLUCONATE 4% CLEANSER FOR DECOLONIZATION TP SCH (21:51)
[2021-08-25] MEDS: ATORVASTATIN CA 80 MG TABLET (FP) PO SCH (21:52)
[2021-08-25] MEDS ORDERED: METOPROLOL TARTRATE 50 MG TABLET (FP) PO SCH (22:00)
[2021-08-26] MEDS ORDERED: NOREPINEPHRINE BITARTRATE 4 MG/4 ML ML IV ONE (06:23)
[2021-08-26] MEDS: FUROSEMIDE 100 MG/10 ML INJECTABLE VIAL IVPB SCH ×2 (06:49→13:47)
[2021-08-26] MEDS ORDERED: SODIUM CHLORIDE 250 ML IV PRN (07:00)
[2021-08-26] MEDS: ALBUMIN HUMAN 25% 12.5 GM/50 ML VIAL IVPB SCH ×3 (07:30→09:52)
[2021-08-26 07:44] LABS: BASO % 0.1 % (0-2.0); EOS % 1.7 % (0-4.5); HEMATOCRIT 24.6 % (32.4-45.2); LYMPH % 3.8 % (8-40); MCH 30.2 pg (25.7-33.7); MCHC 32.3 g/dl (32.0-36.0); MEAN CELL VOLUME 93.5 fl (80-96); MEAN PLT VOLUME 10.5 fl (7.5-11.1); MONO % 7.1 % (3.8-10.2); NEUT % 87.3 % (42.8-82.8); PLATELET COUNT 211 10^3/uL (134-434); RBC 2.63 M/mm3 (3.60-5.2); RDW 17.5 % (11.6-15.6); WHITE BLOOD COUNT 13.1 K/mm3 (4.0-10.0)
[2021-08-26 08:28] LABS: BLOOD UREA NITROGEN 87.6 mg/dL (7-18); CALCIUM 7.9 mg/dL (8.5-10.1); CREATININE 5.5 mg/dL (0.55-1.3); MAGNESIUM 2.5 mg/dL (1.8-2.4); PHOSPHOROUS 7.2 mg/dL (2.5-4.9)
[2021-08-26] MEDS: AMINO ACIDS/PROTEIN HYDROLYS 30 ML LIQUID.PKT PO SCH ×2 (09:00→16:54)
[2021-08-26] MEDS ORDERED: PT OWN MED DRAWER 7, Y5N ONE ×2 (09:51→10:32)
[2021-08-26] MEDS: CALCIUM 500MG/VIT-D 200 UNITS COMBO TABLET (FP) PO SCH (10:06)
[2021-08-26] MEDS: RANOLAZINE E.R. 500 MG TABLET (FP) PO SCH ×2 (10:06→22:39)
[2021-08-26] MEDS: ALLOPURINOL 100 MG TABLET (FP) PO SCH (10:06)
[2021-08-26] MEDS: APIXABAN 5 MG TABLET PO SCH ×2 (10:06→22:37)
[2021-08-26] MEDS: PANTOPRAZOLE SODIUM 40 MG VIAL IVPUSH SCH (10:07)
[2021-08-26] MEDS: MUPIROCIN 2% TOPICAL OINTMENT FOR DECOLONIZATION NS SCH ×2 (10:10→22:37)
[2021-08-26] MEDS: PROPOFOL 1,000,000 MCG/100 ML VIAL IVPB SCH ×3 (10:10→18:10)
[2021-08-26] MEDS: METOPROLOL TARTRATE 50 MG TABLET (FP) PO SCH ×2 (10:34→22:38)
[2021-08-26] MEDS: FENTANYL IVPB 500 MCG/100 ML BAG IVPB SCH ×3 (12:20→16:52)
[2021-08-26] MEDS ORDERED: CEFTRIAXONE 1 GM in DEXTROSE 5%-WATER - 50 ML IVPB ONE (13:28)
[2021-08-26] MEDS: NOREPINEPHRINE BITARTRATE 16,000 MCG in SODIUM CHLORIDE 484 ML IV SCH (13:32)
[2021-08-26] MEDS ORDERED: DEXTROSE 5%-WATER - 50 ML IVPB ONE (13:46)
[2021-08-26] MEDS ORDERED: cefTRIAXone SODIUM 1 GM VIAL ONE (13:46)
[2021-08-26 14:16] LABS: ATYPICAL pANCA <1:20 titer (Neg:<1:20); C-ANCA <1:20 titer (Neg:<1:20)
[2021-08-26] MEDS ORDERED: VASOPRESSIN 20 UNITS/ML VIAL IV ONE (21:30)
[2021-08-26] MEDS ORDERED: VASOPRESSIN 40 UNITS/100 ML BAG IV SCH ×2 (21:30)
[2021-08-26] MEDS ORDERED: PHENYLEPHRINE NS PREMIX 50,000 MCG/500 ML BAG CVP SCH (21:45)
[2021-08-26] MEDS ORDERED: SODIUM CHLORIDE 0.9% 1000 ML INFUS.BAG IV ONE (22:03)
[2021-08-26] MEDS: DONEPEZIL HCL 10 MG TABLET (FP) PO SCH (22:37)
[2021-08-26] MEDS: CHLORHEXIDINE GLUCONATE 4% CLEANSER FOR DECOLONIZATION TP SCH (22:38)
[2021-08-26] MEDS: ATORVASTATIN CA 80 MG TABLET (FP) PO SCH (22:38)
[2021-08-27] MEDS ORDERED: FENTANYL IVPB 500 MCG/100 ML BAG IVPB ONE (03:07)
[2021-08-27] MEDS ORDERED: NOREPINEPHRINE BITARTRATE 4 MG/4 ML ML IV ONE (03:15)
[2021-08-27 05:01] VITALS: TEMP 98.2
[2021-08-27 05:03] VITALS: BP 83/49; PULSE 132
[2021-08-27] MEDS ORDERED: MORPHINE SULFATE/0.9% NACL/PF 100 MG/100 ML BAG IVPB SCH (06:00)
[2021-08-28 20:07] LABS: MAGNESIUM 2.5 mg/dL (1.8-2.4); PHOSPHOROUS 6.4 mg/dL (2.5-4.9)
== END 2021-08-27 09:48 | disposition expired | DRG 208 ==
LOC: JER 15:07 → JERBED 16:21 → J4S 08-18 00:25 → JICU 08-23 09:32
PROVIDERS: ADMIT Internal Medicine; ATTEND Internal Medicine Pulmonary Disease
PROC: 30233N1 Transfusion of Nonautologous Red Blood Cells into Peripheral Vein, Percutaneous Approach (ICD-10-PCS; 2021-08-19)
PROC: 05HM33Z Insertion of Infusion Device into Right Internal Jugular Vein, Percutaneous Approach (ICD-10-PCS; principal; 2021-08-22)
PROC: B543ZZA Ultrasonography of Right Jugular Veins, Guidance (ICD-10-PCS; 2021-08-22)
PROC: 5A1D70Z Performance of Urinary Filtration, Intermittent, Less than 6 Hours Per Day (ICD-10-PCS; 2021-08-22)
PROC: 5A1945Z Respiratory Ventilation, 24-96 Consecutive Hours (ICD-10-PCS; 2021-08-23)
PROC: 0BH17EZ Insertion of Endotracheal Airway into Trachea, Via Natural or Artificial Opening (ICD-10-PCS; 2021-08-23)
PROC: 5A1D70Z Performance of Urinary Filtration, Intermittent, Less than 6 Hours Per Day (ICD-10-PCS; 2021-08-24)
PROC: 5A1D70Z Performance of Urinary Filtration, Intermittent, Less than 6 Hours Per Day (ICD-10-PCS; 2021-08-26)
DX: J96.21 Acute and chronic respiratory failure with hypoxia (principal); I50.33 Acute on chronic diastolic (congestive) heart failure; I13.0 Hypertensive heart and chronic kidney disease with heart failure and stage 1 through stage 4 chronic kidney disease, or unspecified chronic kidney disease; J44.1 Chronic obstructive pulmonary disease with (acute) exacerbation; Z68.41 Body mass index [BMI] 40.0-44.9, adult; R57.9 Shock, unspecified; N17.9 Acute kidney failure, unspecified; N18.32 Chronic kidney disease, stage 3b; J96.22 Acute and chronic respiratory failure with hypercapnia; I46.9 Cardiac arrest, cause unspecified; D50.9 Iron deficiency anemia, unspecified; F03.90 Unspecified dementia, unspecified severity, without behavioral disturbance, psychotic disturbance, mood disturbance, and anxiety; I25.10 Atherosclerotic heart disease of native coronary artery without angina pectoris; J44.9 Chronic obstructive pulmonary disease, unspecified; E66.01 Morbid (severe) obesity due to excess calories; E78.5 Hyperlipidemia, unspecified; G47.33 Obstructive sleep apnea (adult) (pediatric); I25.2 Old myocardial infarction; E87.70 Fluid overload, unspecified; M10.9 Gout, unspecified; K80.20 Calculus of gallbladder without cholecystitis without obstruction; I48.0 Paroxysmal atrial fibrillation; Z86.73 Personal history of transient ischemic attack (TIA), and cerebral infarction without residual deficits; Z86.718 Personal history of other venous thrombosis and embolism
CPT/HCPCS: 31500; 36415; 36430; 36600; 71045-TC-FY; 80048; 80053; 82550; 82728; 82803; 82962; 83516; 83520; 83615; 83735; 83880; 84100; 84484; 85025; 85027; 85610; 85651; 85730; 86038; 86140; 86256; 86431; 86803; 86850; 86900; 86901; 86922; 87040; 87070; 87186; 87205; 87340; 87804; 93005; 93010; 93306-TC; 94002; 94640; 94660; 99285-25; C9803; J3490; P9047; P9058; U0003; U0005